=== PATIENT | male | born 1945 | race Caucasian/White ===

== ENCOUNTER 2016-11-04 14:20 | Inpatient (IN) | payer MEDICARE, OTHER ==
[~2016-11-04] VITALS: Ht 166.4 cm; Wt 82.0 kg
[~2016-11-04 14:20] MED LIST: ADVA250A INH; ASPI1TAB69 PO; CHOL1TAB42 PO; LIPI40TA PO; OXYGENTANK NAS.CANULA; TAMS5CAP PO; TELM1TAB56 PO; TIOT12.9 INH; VITA500T49 PO; ZYRT10CA PO
[2016-11-05] MEDS ORDERED: METOPROLOL TARTRATE 25 MG TAB PO PRN (05:45)
[2016-11-05] MEDS ORDERED: INSULIN HUMAN REGULAR 1,000 UNITS/10 ML VIAL SQ PRN (05:45)
[2016-11-05] MEDS: LACTATED RINGER'S 1000 ML IV SCH (06:15)
[2016-11-05 06:20] VITALS: BP 165/75; PULSE 94; RESP 18; TEMP 97.1; O2SAT 99
[2016-11-05] MEDS ORDERED: ceFAZolin 2 GM PREMIX 50 ML IV SCH (06:30)
[2016-11-05 06:48] LABS: INTERNATIONAL NORMALIZED RATIO 1.1 RATIO
[2016-11-05] MEDS ORDERED: SODIUM BICARBONATE 8.4% INJ 50 ML ONE (06:48)
[2016-11-05] MEDS ORDERED: GELFOAM SIZE 100 ONE (06:48)
[2016-11-05] MEDS ORDERED: LIDOCAINE 1%/EPINEPHrine 1:100,000 SOLN 30 ML VIAL ONE (06:48)
[2016-11-05] MEDS ORDERED: BACITRACIN TOP OINT 15 GM TUBE ONE (06:48)
[2016-11-05 06:50] LABS: PROTHROMBIN TIME - PATIENT 11.9 SEC (9.8-11.6)
[2016-11-05] MEDS ORDERED: BUPIVACAINE/EPINEPHRINE 0.5% PF 30 ML VIAL ONE (06:56)
[2016-11-05] MEDS ORDERED: RESP: ALBUTEROL 2.5 MG/IPRATROPIUM 0.5 MG NEB (SCH) ONE (07:11)
[2016-11-05] MEDS ORDERED: MIDAZOLAM HCL 2 MG/2 ML VIAL ONE (07:23)
[2016-11-05] MEDS ORDERED: fentaNYL CITRATE 1000 MCG/20 ML VIAL ONE (07:27)
[2016-11-05] MEDS ORDERED: SODIUM CHLORID 0.9% 500 ML IV SCH (07:30)
[2016-11-05] MEDS ORDERED: ceFAZolin INJ 1,000 MG VIAL IV ONE (11:00)
[2016-11-05] MEDS ORDERED: SODIUM CHLORID 0.9% 500 ML INJ 500 ML IV ONE (12:00)
[2016-11-05] MEDS ORDERED: PROPOFOL 200 MG/20 ML AMP IV ONE (12:00)
[2016-11-05] MEDS ORDERED: LACTATED RINGER'S 1000 ML INJ 5,000 ML IV ONE (12:00)
[2016-11-05] MEDS ORDERED: PHENYLEPH/NS 1000 MCG/10 ML SYR IV ONE (12:00)
[2016-11-05] MEDS ORDERED: ePHEDrine/NS 25 MG/5 ML SYR IV ONE (12:00)
[2016-11-05] MEDS ORDERED: DO NOT ADM ANY ANTICOAGULANT DRUGS XX PRN (12:59)
[2016-11-05] MEDS ORDERED: fentaNYL CITRATE 250 MCG/5 ML AMP ONE (13:05)
[2016-11-05] MEDS ORDERED: *morphine SULFATE 8 MG/ML PERIprocedure ONLY ONE ×3 (13:15→13:53)
[2016-11-05] MEDS ORDERED: NALOXONE HCL 0.4 MG/ML AMP IV PRN (13:45)
[2016-11-05] MEDS: MORPHINE SULFATE 30 MG/30 ML PCA IV SCH (13:58)
[2016-11-05] MEDS: PANTOPRAZOLE SODIUM 40 MG VIAL IV PUSH SCH (14:00)
[2016-11-05] MEDS: SODIUM CHLOR 0.9% 1000 ML INJ 1,000 ML IV SCH (14:00)
[2016-11-05] MEDS: BUDESONIDE-FORMOTEROL 160/4.5 MCG INHALER INH SCH (14:00)
[2016-11-05 14:06] LABS: AUTOMATED NEUTROPHIL # 11.9 TH/MM3 (1.8-7.7); BASOPHIL % 0.1 % (0.0-2.0); EOSINOPHIL % 0.1 % (0.0-4.0); HEMATOCRIT 29.1 % (39.0-51.0); HEMO FLAGS DIFF FINAL; LYMPH % 7.5 % (9.0-44.0); MEAN CELL VOLUME 91.4 FL (80.0-100.0); MEAN CORPUSCULAR HEMOGLOBIN 31.9 PG (27.0-34.0); MEAN CORPUSCULAR HGB CONC 34.9 % (32.0-36.0); MONO % 7.2 % (0.0-8.0); NEUT % 85.1 % (16.0-70.0); PLATELET COUNT 209 TH/MM3 (150-450); RED BLOOD COUNT 3.18 MIL/MM3 (4.50-5.90); RED CELL DISTRIBUTION WIDTH 14.1 % (11.6-17.2); WHITE BLOOD COUNT 13.9 TH/MM3 (4.0-11.0)
[2016-11-05 14:19] LABS: POTASSIUM 4.2 MEQ/L (3.5-5.1)
[2016-11-05] MEDS: ACETAMINOPHEN 1000 MG/100 ML VIAL IV SCH (15:00)
[2016-11-05] MEDS: GENTAMICIN INJ 120 MG in SODIUM CHLORIDE 0.9% INJ 100 ML IV SCH (15:00)
--- NOTE | 2016-11-05 15:44 | EKG ---
Date Performed: 11/05/2016 Time Performed: 06:16:35 PTAGE: 70 years EKG: Sinus rhythm WITH FREQUENT SUPRAVENTRICULAR PREMATURE COMPLEXES IN A BIGEMINAL PATTERN POSSIBLE INFERIOR MYOCARDI AL INFARCTION , PROBABLY OLD ABNORMAL RHYTHM ECG NO PREVIOUS TRACING DOCTOR: Navid Del Cid Interpretating Date/Time 11/05/2016 15:41:00
[2016-11-05] MEDS ORDERED: ERYTHROMYCIN 0.5% OPTH OINT 1 GM TUBO ONE (17:46)
[2016-11-05] MEDS ORDERED: TETRACAINE 0.5% OPTH SOLN 2 ML BTL LEFT EYE ONE (18:00)
[2016-11-05] MEDS ORDERED: BALANCED SALT SOLN OPHT IRRIG 15 ML BTL LEFT EYE ONE (18:00)
[2016-11-05] MEDS ORDERED: TETRACAINE 0.5% LEFT EYE ONE (18:00)
[2016-11-05] MEDS ORDERED: OPTH LEFT EYE ONE (18:00)
[2016-11-05] MEDS ORDERED: ERYTHROMYCIN 0.5% OPTH OINT 3.5 GM TUBO LEFT EYE ONE (18:00)
[2016-11-05 20:00] VITALS: PULSE 95
[2016-11-05 20:50] VITALS: O2SAT 100
[2016-11-05] MEDS: ATORVASTATIN 40 MG TAB PO SCH (21:00)
[2016-11-05] MEDS: PCA - TOTAL MG MORPHINE DELIVERED PER SHIFT SCH (22:00)
[2016-11-06] VITALS (12 sets, daily range): BP systolic 104–147; BP diastolic 51–90; PULSE 73–91; RESP 17–22; TEMP 97.9–98.5; O2SAT 97–100
[2016-11-06] MEDS: SODIUM CHLOR 0.9% 1000 ML INJ 1,000 ML IV SCH ×4 (03:00→21:10)
[2016-11-06] MEDS: ACETAMINOPHEN 1000 MG/100 ML VIAL IV SCH ×4 (03:29→20:21)
[2016-11-06] MEDS: PCA - TOTAL MG MORPHINE DELIVERED PER SHIFT SCH ×3 (06:00→22:40)
[2016-11-06 06:44] LABS: HEMATOCRIT 26.4 % (39.0-51.0); MEAN CELL VOLUME 92.3 FL (80.0-100.0); MEAN CORPUSCULAR HEMOGLOBIN 33.1 PG (27.0-34.0); MEAN CORPUSCULAR HGB CONC 35.8 % (32.0-36.0); PLATELET COUNT 154 TH/MM3 (150-450); RED BLOOD COUNT 2.86 MIL/MM3 (4.50-5.90); RED CELL DISTRIBUTION WIDTH 14.1 % (11.6-17.2); REVIEW FLAG FINAL
[2016-11-06 06:55] LABS: BICARBONATE 23.9 MEQ/L (21.0-32.0); POTASSIUM 4.4 MEQ/L (3.5-5.1)
[2016-11-06 07:11] LABS: CALCIUM-PROTEIN CORRECTED 8.3 MG/DL (8.5-10.1)
[2016-11-06] MEDS: LACTATED RINGER'S 1000 ML IV SCH (07:30)
[2016-11-06] MEDS: LOSARTAN 50 MG TAB PO SCH (08:33)
[2016-11-06] MEDS: CETIRIZINE HCL 10 MG TAB PO SCH (08:33)
[2016-11-06] MEDS: BUDESONIDE-FORMOTEROL 160/4.5 MCG INHALER INH SCH ×2 (09:00→20:21)
[2016-11-06] MEDS ORDERED: ASPIRIN EC 81 MG TABEC PO SCH (09:00)
[2016-11-06] MEDS: PANTOPRAZOLE SODIUM 40 MG VIAL IV PUSH SCH (11:33)
--- NOTE | 2016-11-06 11:51 | HHI.PR ---
Subjective Subjective Notes Hungry Pain controlled using TRUCK HOPPER Objective Vitals/I&O Vital Signs Date Time Temp Pulse Resp B/P Pulse Ox O2 Delivery O2 Flow Rate FiO2 11/06/16 08:31 100 Nasal Cannula 2.00 11/06/16 08:00 98.3 84 20 147/65 Labs Laboratory Tests Test 11/05/16 11/05/16 11/06/16 13:51 20:15 06:00 White Blood Count 13.9 10.0 Red Blood Count 3.18 2.86 Hemoglobin 10.2 9.4 Hematocrit 29.1 26.4 Mean Corpuscular Volume 91.4 92.3 Mean Corpuscular Hemoglobin 31.9 33.1 Mean Corpuscular Hemoglobin 34.9 35.8 Concent Red Cell Distribution Width 14.1 14.1 Platelet Count 209 154 Mean Platelet Volume 7.8 7.8 Neutrophils (%) (Auto) 85.1 Lymphocytes (%) (Auto) 7.5 Monocytes (%) (Auto) 7.2 Eosinophils (%) (Auto) 0.1 Basophils (%) (Auto) 0.1 Neutrophils # (Auto) 11.9 Lymphocytes # (Auto) 1.0 Monocytes # (Auto) 1.0 Eosinophils # (Auto) 0.0 Basophils # (Auto) 0.0 CBC Comment DIFF FINAL Differential Comment Sodium Level 132 134 Potassium Level 4.2 4.4 Chloride Level 101 103 Carbon Dioxide Level 25.0 23.9 Anion Gap 6 7 Blood Urea Nitrogen 5 9 Creatinine 0.81 0.95 Estimat Glomerular Filtration 94 78 Rate Random Glucose 195 138 Calcium Level 7.6 7.1 Nasal Screen MRSA (PCR) POSITIVE Protein Corrected Calcium 8.3 Total Protein 4.9 Cardiovascular: Regular Lungs: Clear Abdomen: Other (see below ) Extremities: Other (moderate generalized edema ) Narrative Exam Umbilical: dressing in place with no drainage Midline incision (from Urology) procedure: primapore dressing in place with minimal drainage A/P Assessment and Plan 70 year old male POD1 radical cystectomy and ileo conduit (by Urology); POD1 UHR (by General Surgery) -Keep dressing in place -All further care per Urology; GS will sign off -Follow up in the office in about 7-10 days after DC Annika Reyes Nov 06, 2016 11:51
--- NOTE | 2016-11-06 12:37 | HHI.PR ---
Subjective Remarks no acute issues overnight. pain controlled with morphine HOT DIE PICKER. Up in chair. Denies N/V/CP/SOB/F/C. Denies flatus. Denies dizziness/lightheadedness Objective Vital Signs Vital Signs Date Time Temp Pulse Resp B/P Pulse Ox O2 Delivery O2 Flow Rate FiO2 11/06/16 08:31 100 Nasal Cannula 2.00 11/06/16 08:00 98.3 84 20 147/65 100 11/06/16 08:00 84 11/06/16 07:00 99 Nasal Cannula 3.00 11/06/16 06:00 80 11/06/16 06:00 16 11/06/16 04:00 82 11/06/16 00:00 91 11/05/16 22:00 18 11/05/16 20:50 100 Nasal Cannula 3.00 11/05/16 20:00 95 11/05/16 20:00 100 Nasal Cannula 3.00 11/05/16 19:52 97.8 92 18 115/66 99 Nasal Cannula 3 11/05/16 19:00 92 18 115/66 99 Nasal Cannula 3 11/05/16 18:00 93 18 111/72 99 Nasal Cannula 3 11/05/16 17:00 94 18 114/67 97 Nasal Cannula 3 11/05/16 16:45 92 18 138/68 97 Nasal Cannula 3 11/05/16 16:30 91 18 132/74 99 Nasal Cannula 3 11/05/16 16:15 91 18 148/67 99 Nasal Cannula 3 11/05/16 16:00 92 18 148/65 99 Nasal Cannula 3 11/05/16 15:45 90 18 123/66 99 Nasal Cannula 3 11/05/16 15:30 89 18 137/74 99 Nasal Cannula 3 11/05/16 15:15 89 18 110/69 98 Nasal Cannula 3 11/05/16 15:00 89 18 138/47 99 Nasal Cannula 3 11/05/16 14:45 86 18 129/71 99 Nasal Cannula 3 11/05/16 14:30 84 18 140/71 99 Nasal Cannula 3 11/05/16 14:15 82 18 137/63 99 Nasal Cannula 3 11/05/16 14:00 78 18 141/52 99 Nasal Cannula 3 11/05/16 13:58 20 11/05/16 13:45 84 18 135/65 98 Nasal Cannula 3 11/05/16 13:30 72 18 113/52 98 Nasal Cannula 3 11/05/16 13:15 76 18 127/64 98 Nasal Cannula 3 11/05/16 13:00 81 18 107/43 98 Nasal Cannula 3 11/05/16 12:55 97.1 83 18 109/35 94 Nasal Cannula 3 I/O 11/05/16 11/05/16 11/05/16 11/06/16 11/06/16 11/06/16 07:00 15:00 23:00 07:00 15:00 23:00 Intake Total 5870 ml 969 ml 952 ml Output Total 1035 ml 230 ml 550 ml Balance 4835 ml 739 ml 402 ml Intake IV Total 670 ml 969 ml 952 ml Other 5200 ml Output Urine Total 410 ml 180 ml Drainage Total 125 ml 50 ml 550 ml Estimated Blood Loss 500 ml Result Diagram: 11/06/16 0600 11/06/16 0600 Objective Remarks NAD. A/O x 3 non-labored breathing RRR abd soft, distended, appropriate, no peritoneal signs. Dressings dry stoma edematous, pink with some bruising. Appears viable. Pelvic drain with sanguinous drainage. Foreskin edematous, paraphimosis Ext NT no c/c/e Procedures Radical Cystoprostatectomy, Pelvic LN dissection, Ileal Conduit 11/05/2016 Assessment and Plan Assessment and Plan POD #1 s/p Radical Cystoprostatectomy, Ileal Conduit -Neuro: Awake, alert. On Morphine HOT DIE PICKER. -Pul: On 02 NC, continue IS. Home inhalers as scheduled. -CV: Hemodynamically stable. Follow Hemoglobin. Repeat in A.M. -Renal: Good UOP. Creatinine normal. Replace Calcium. Repeat BMP in A.M. Continue IVF. -GI: Keep NPO until bowel function returns. Continue Protonix, Zofran. -ID: WBC normal. afebrile. Continue Ancef, Gent -Heme/Onc: SCDs bilaterally. Hold chemical anticoagulation for now as hemoglobin has dropped. -Uro: path pending. -Disposition: PT/OT, Consult Stoma therapy. Remain in ICU. -appreciate General Surgery. Duncan Huff MD Nov 06, 2016 12:36
[2016-11-06] MEDS: MORPHINE SULFATE 30 MG/30 ML PCA IV SCH (13:00)
[2016-11-06] MEDS: GENTAMICIN INJ 120 MG in SODIUM CHLORIDE 0.9% INJ 100 ML IV SCH (14:41)
[2016-11-06] MEDS: ATORVASTATIN 40 MG TAB PO SCH (20:21)
[2016-11-07] VITALS (12 sets, daily range): BP systolic 115–144; BP diastolic 50–61; PULSE 73–92; RESP 20–31; TEMP 97–98.9; O2SAT 95–100
[2016-11-07] MEDS: ACETAMINOPHEN 1000 MG/100 ML VIAL IV SCH ×4 (01:26→21:24)
[2016-11-07 04:34] LABS: AUTOMATED NEUTROPHIL # 9.5 TH/MM3 (1.8-7.7); BASOPHIL % 0.2 % (0.0-2.0); EOSINOPHIL % 0.3 % (0.0-4.0); HEMATOCRIT 26.2 % (39.0-51.0); HEMO FLAGS DIFF FINAL; LYMPH % 9.6 % (9.0-44.0); LYMPHOCYTE # 1.1 TH/MM3 (1.0-4.8); MEAN CELL VOLUME 94.9 FL (80.0-100.0); MEAN CORPUSCULAR HEMOGLOBIN 32.7 PG (27.0-34.0); MEAN CORPUSCULAR HGB CONC 34.4 % (32.0-36.0); MONO % 8.2 % (0.0-8.0); NEUT % 81.7 % (16.0-70.0); PLATELET COUNT 163 TH/MM3 (150-450); RED BLOOD COUNT 2.76 MIL/MM3 (4.50-5.90); RED CELL DISTRIBUTION WIDTH 14.5 % (11.6-17.2); WHITE BLOOD COUNT 11.6 TH/MM3 (4.0-11.0)
[2016-11-07 04:59] LABS: BICARBONATE 24.7 MEQ/L (21.0-32.0); POTASSIUM 4.9 MEQ/L (3.5-5.1)
[2016-11-07] MEDS: PCA - TOTAL MG MORPHINE DELIVERED PER SHIFT SCH (05:41)
[2016-11-07] MEDS: SODIUM CHLOR 0.9% 1000 ML INJ 1,000 ML IV SCH ×3 (05:42→21:25)
[2016-11-07] MEDS: CETIRIZINE HCL 10 MG TAB PO SCH (08:41)
[2016-11-07] MEDS: LOSARTAN 50 MG TAB PO SCH (08:41)
[2016-11-07] MEDS: BUDESONIDE-FORMOTEROL 160/4.5 MCG INHALER INH SCH ×2 (09:00→21:00)
[2016-11-07] MEDS: PANTOPRAZOLE SODIUM 40 MG VIAL IV PUSH SCH (13:09)
[2016-11-07] MEDS: MORPHINE SULFATE 4 MG/ML INJ IV PUSH PRN ×2 (18:12→21:25)
[2016-11-07] MEDS: ONDANSETRON HCL 4 MG/2 ML VIAL IV PUSH PRN (18:17)
[2016-11-07] MEDS: ATORVASTATIN 40 MG TAB PO SCH (21:25)
[2016-11-08] VITALS: BP 148/59; PULSE 96; RESP 18; TEMP 97.6; O2SAT 96
[2016-11-08] MEDS: ACETAMINOPHEN 1000 MG/100 ML VIAL IV SCH ×4 (01:08→20:08)
[2016-11-08] MEDS: MORPHINE SULFATE 4 MG/ML INJ IV PUSH PRN ×2 (01:09→06:28)
[2016-11-08] MEDS: ONDANSETRON HCL 4 MG/2 ML VIAL IV PUSH PRN ×2 (01:16→21:56)
[2016-11-08 05:20] LABS: HEMATOCRIT 24.2 % (39.0-51.0); MEAN CELL VOLUME 94.4 FL (80.0-100.0); MEAN CORPUSCULAR HEMOGLOBIN 33.1 PG (27.0-34.0); PLATELET COUNT 156 TH/MM3 (150-450); RED BLOOD COUNT 2.57 MIL/MM3 (4.50-5.90); RED CELL DISTRIBUTION WIDTH 14.7 % (11.6-17.2); REVIEW FLAG FINAL; WHITE BLOOD COUNT 8.1 TH/MM3 (4.0-11.0)
--- NOTE | 2016-11-08 05:33 | MP ---
cc: PAULO MOJICA M.D. DATE OF SURGERY: 11/05/2016 PREOPERATIVE DIAGNOSIS: Symptomatic large supraumbilical hernia. Bladder cancer requiring radical cystectomy. POSTOPERATIVE DIAGNOSIS: Symptomatic large supraumbilical hernia. Bladder cancer requiring radical cystectomy. OPERATION: Primary umbilical repair. SURGEON: Paulo Mojica MD. COMPOSITE LAYUP WORKER: ANNA Stanley. ANESTHESIA: General endotracheal anesthesia. INDICATIONS FOR PROCEDURE: Mr. Edwards is a very pleasant 70 year old gentleman who is undergoing a radical cystectomy by Dr. Huff and Dr. Serna and was also noted to have a very large supraumbilical hernia. He asked if the hernia could be fixed at the same time as the radical cystectomy. I advised we could perform primary hernia repair would I would not recommend placing a prosthetic mesh with Dr. Huff manipulating both the GI and tracts. The patient expressed understanding was willing to proceed and accepted the high recurrence rate with primary repair. I Dr. Huff has just completed a radical cystectomy via the lower midline and left periumbilical incision. The wound has been closed. I assumed the care of the patient from him in the operating room. Details the patient was already in the operating room, having just completed as radical cystectomy with Dr. Huff and Dr. eSrna. Their surgical wound had been closed. Attention was directed to the supraumbilical area. A transverse supraumbilical incision was made just above the hernia after anesthetizing skin and subcutaneous tissue with 0.25% Marcaine. Hernia sac was easily dissected from surrounding skin using a blunt dissection. Hernia sac was then opened and found to contain a large amount of omentum which had been transected intra-abdominally by Dr. Daphne Huff during their dissection. We removed the omentum and send it for pathology. The hernia sac was then excised. Fascial defect measured about 2-3 cm in diameter. We elected perform primary repair. Again because of the manipulation of the GI and tracts by Dr. Huff and Dr. Serna. The umbilical fascia was cleaned off circumferentially identifying several centimeters identifying approximately 2 cm's of healthy fascia. This was then repaired primarily using 0 Prolene suture interrupted x4. Once this repair was completed. The umbilical stalk was then tacked down to the abdominal wall using a 3-0 Vicryl. Subcutaneous tissues closed with 3-0 Vicryl. Skin was closed with 4-0 Vicryl. The patient in awakened, brought to recovery in stable condition. Please note the KNOCKDOWN MAN butcher's assistant was medically necessary due to her surgical skills and knowledge of my surgical technique. Paulo MD SANDRO Mojica/moise /12:46 PM /5:23 AM MTDRima
[2016-11-08 05:46] LABS: BICARBONATE 22.9 MEQ/L (21.0-32.0); POTASSIUM 4.4 MEQ/L (3.5-5.1)
[2016-11-08] MEDS: SODIUM CHLOR 0.9% 1000 ML INJ 1,000 ML IV SCH ×3 (06:29→20:12)
[2016-11-08] MEDS: LACTATED RINGER'S 1000 ML IV SCH (07:30)
[2016-11-08 08:00] VITALS: BP 113/58; PULSE 85; RESP 16; TEMP 97; O2SAT 97
[2016-11-08] MEDS: SPIRIVA RESPIMAT INH SCH (09:00)
[2016-11-08] MEDS: BUDESONIDE-FORMOTEROL 160/4.5 MCG INHALER INH SCH ×2 (09:00→20:07)
[2016-11-08] MEDS: CETIRIZINE HCL 10 MG TAB PO SCH (11:47)
[2016-11-08] MEDS: LOSARTAN 50 MG TAB PO SCH (11:47)
[2016-11-08 12:00] VITALS: BP 121/58; PULSE 88; RESP 17; TEMP 96.1; O2SAT 98
[2016-11-08] MEDS: PANTOPRAZOLE SODIUM 40 MG VIAL IV PUSH SCH (15:08)
[2016-11-08 16:00] VITALS: BP 122/58; PULSE 84; RESP 18; TEMP 96.2; O2SAT 98
[2016-11-08] MEDS: ATORVASTATIN 40 MG TAB PO SCH (20:07)
[2016-11-08 20:17] VITALS: BP 144/64; PULSE 78; RESP 18; TEMP 98.5; O2SAT 98
--- NOTE | 2016-11-08 20:28 | MP ---
cc: CARLITOS PRATHER M.D.,ZORAIDA Polanco MD DATE OF SURGERY: 11/08/2016 PREOPERATIVE DIAGNOSIS: 1. History of high-grade T1 bladder cancer, plasmacytoid variant. 2. COPD. 3. Umbilical hernia. POSTOPERATIVE DIAGNOSIS: 1. History of high-grade T1 bladder cancer, plasmacytoid variant. 2. COPD. 3. Umbilical hernia. OPERATIVE PROCEDURE PERFORMED: 1. Radical cystoprostatectomy with ileal conduit. 2. Bilateral pelvic lymph node dissection. SURGEON: Zoraida Huff MD. GREEN MEAT GRADER: Curry Serna MD. ANESTHESIA: General. COMPLICATIONS: None. PREOPERATIVE ANTIBIOTICS: Ancef 2 grams IV. DRAINS: 1. Bilateral 7-Hungarian x 90 cm ureteral stents. 2. A 22-Hungarian catheter as pelvic drain. ESTIMATED BLOOD LOSS: 500 mL. FLUIDS: 5100 mL. SPECIMENS: 1. Bladder and prostate. 2. Right distal ureter. 3. Left distal ureter. DISPOSITION: Stable to the intensive care unit. INDICATIONS FOR THE PROCEDURE: The patient is a 70-year-old male with history of COPD who was found to have recurrent high-grade T1 bladder cancer. On most recent resection, he was found to have a plasmacytoid variant, which is a very aggressive variant. He was referred to medical oncology who recommended to proceed straight to a radical cystectomy. He had a PET scan done, which was negative for metastatic disease. He was also found to have an umbilical hernia. He was seen by Dr. Melgar and in combination with Dr. Melgar we decided that he would have a hernia repair at the same time as having his bladder removed. The risks, benefits and alternatives of the procedure were explained to the patient and his and they elected proceed. All questions were answered. Informed consent was obtained. DESCRIPTION OF THE PROCEDURE IN DETAIL: The patient was properly identified and brought back to the operating room where he was laid supine on the operating table. The appropriate time out was performed under the direction of anesthesiology. The patient was then induced under general anesthetic. Preop antibiotics in the form of Ancef 2 grams IV were given within a one hour start of the procedure. The patient was then flexed and prepped and draped in normal sterile surgical fashion. A low midline incision was made from the pubic bone to the left lateral side of the umbilicus. Electrocautery was then used to dissect down through the subcutaneous tissues to the level of the rectus fascia. The midline was identified and then divided at the rectus muscle along the midline. The peritoneum was then entered sharply with Metzenbaum scissors. It was then divided with electrocautery. This opened up the abdominal cavity. The urachus was then divided. A tonsil was placed across the urachus and used for retraction. At this time, a Bookwalter retractor was then placed to help with retraction. Using electrocautery we were able to dissect the sigmoid colon and bowel off of the posterior portion of the bladder. The colon was then retracted cephalad. At this point, the ureters were difficult to find at this time. Therefore we turned our attention to the bladder and prostate. Using blunt dissection, I took down the lateral wall attachments of the bladder on each side. This developed a nice plane. The vas deferens was finally sighted and this was divided. Using an endovascular GI stapler, we then marched down the pedicles on each side staying close to the bladder with the rectum posterior and off the bladder. We were able to march all the way down to the level of the prostate. We were able to march all the way down to the level of the prostate. The endopelvics were then divided on each side and then we came up anterior to the prostate. The plane between the urethra and the rectourethralis was developed bluntly. The endovascular ROBERTH stapler was then used to divide the UVC and the urethra. The prostate and bladder were then removed in its entirety. The iliac vessels on each side were identified. Pelvic lymph node dissection was done removing the obturator and pelvic lymph nodes on each side. The obturator nerve was identified throughout this portion of the procedure and it did appear intact on each side and a significant amount of annie tissue was removed. Both ureters were identified and dissected out. The distal portions were then clipped and divided. Each distal portion of the ureter was then sent off for frozen which came back negative for malignancy. A mesenteric window was made and the left ureter was brought through the mesenteric onto the right side in preparation for the ileal conduit. Through his umbilical hernia, a significant amount of mesentery was stuck up into the hernia. In order to bring the small bowel began retraction and length on the small bowel, the omentum was divided. The ileocecal valve was identified approximately 10 cm proximal to the ileocecal valve. We made our butt end of the ileal conduit. Another 15 cm was our proximal end. The conduit was made with the TIA stapler. Bowel anastomosis was performed with the antimesenteric side on each side of the bowel. It appeared to be widely patent. The conduit was then positioned inferior to the bowel anastomosis. The mesenteric window was closed with a running 3-0 Vicryl to prevent a sliding hernia. At this time, water-tight end-to-side ureteral anastomosis was then done with the left and right ureter after spatulating each left and right ureter. A 3-0 Vicryl suture was used as a stay stitch for each ureter to the butt end of the conduit. Prior to finishing the anastomosis, bilateral 7-Hungarian x 90 cm ureteral stents were then passed up each ureter. The ileal conduit was then matured in the right lower quadrant using 2-0 Vicryls which came out as a nice [place]. The conduit did appear edematous and discolored but viable. Urine was seen coming out of both stents. The ileal conduit was then secured to the skin with interrupted 2-0 Vicryl. The conduit was brought through the rectus muscle with a two fingerbreadth wide fascial opening. At this time, a 22-Hungarian three-way catheter was then placed through his penis and put on retraction for a pelvic drain. Two grams of Evi was then placed in the pelvis. Hemostasis was excellent. The incision was then closed with a running looped PDS followed by noah. This concluded my portion of procedure. Dr. Melgar then came in at the end to perform the umbilical hernia repair. Please see his operative report. The sponge, needle count was correct at the end of my portion of the case. He was extubated following the completion of Dr. Melgar's hernia repair. He was sent to recovery in stable condition without immediate complications. He will be transferred to the intensive care unit for overnight observation. MD MARLENY Oropeza/PABLO /11:14 AM /7:43 PM
[2016-11-09 00:21] VITALS: BP 140/88; PULSE 76; RESP 18; TEMP 97.9; O2SAT 97
[2016-11-09] MEDS: ACETAMINOPHEN 1000 MG/100 ML VIAL IV SCH ×4 (02:04→19:54)
[2016-11-09] MEDS: LACTATED RINGER'S 1000 ML IV SCH ×2 (02:05→19:54)
[2016-11-09] MEDS: SODIUM CHLOR 0.9% 1000 ML INJ 1,000 ML IV SCH ×3 (02:05→19:54)
[2016-11-09] MEDS: CALCIUM CARBONATE 500 MG CHEWABLE TAB CHEW PRN (02:37)
[2016-11-09] MEDS: ONDANSETRON HCL 4 MG/2 ML VIAL IV PUSH PRN (03:03)
[2016-11-09] MEDS ORDERED: PROMETHAZINE INJ 25 MG/ML VIAL IM PRN (03:45)
[2016-11-09 07:20] LABS: HEMATOCRIT 25.1 % (39.0-51.0); MEAN CELL VOLUME 94.6 FL (80.0-100.0); MEAN CORPUSCULAR HEMOGLOBIN 32.5 PG (27.0-34.0); MEAN CORPUSCULAR HGB CONC 34.3 % (32.0-36.0); PLATELET COUNT 206 TH/MM3 (150-450); RED BLOOD COUNT 2.66 MIL/MM3 (4.50-5.90); RED CELL DISTRIBUTION WIDTH 14.4 % (11.6-17.2); REVIEW FLAG FINAL; WHITE BLOOD COUNT 4.7 TH/MM3 (4.0-11.0)
[2016-11-09 07:31] LABS: POTASSIUM 4.5 MEQ/L (3.5-5.1)
[2016-11-09 08:00] VITALS: BP 145/66; PULSE 90; RESP 18; TEMP 97; O2SAT 98
[2016-11-09] MEDS: BUDESONIDE-FORMOTEROL 160/4.5 MCG INHALER INH SCH ×2 (09:00→19:55)
[2016-11-09] MEDS: SPIRIVA RESPIMAT INH SCH (09:00)
[2016-11-09] MEDS: LOSARTAN 50 MG TAB PO SCH (09:22)
[2016-11-09] MEDS: CETIRIZINE HCL 10 MG TAB PO SCH (09:22)
[2016-11-09 12:00] VITALS: BP 162/71; PULSE 93; RESP 19; TEMP 98.1; O2SAT 8
[2016-11-09] MEDS: PANTOPRAZOLE SODIUM 40 MG VIAL IV PUSH SCH (12:29)
--- NOTE | 2016-11-09 13:54 | HHI.PR ---
Subjective Remarks N/V x 1 overnight after taking oral medication. Had NG tube inserted. Feels better. Abdominal pain improved. Denies CP/SOB/F/C. OOB yesterday. Objective Vital Signs Vital Signs Date Time Temp Pulse Resp B/P Pulse Ox O2 Delivery O2 Flow Rate FiO2 11/09/16 12:00 98.1 93 19 162/71 8 11/09/16 08:15 3.00 11/09/16 08:00 97.0 90 18 145/66 98 11/09/16 00:21 97.9 76 18 140/88 97 11/08/16 21:45 Nasal Cannula 3.00 11/08/16 20:17 98.5 78 18 144/64 98 11/08/16 16:00 96.2 84 18 122/58 98 I/O 11/08/16 11/08/16 11/08/16 11/09/16 11/09/16 11/09/16 07:00 15:00 23:00 07:00 15:00 23:00 Intake Total 0 ml 0 ml 795 ml 1036 ml Output Total 250 ml 1630 ml 1000 ml Balance -250 ml 0 ml -835 ml 36 ml Intake Oral 0 ml 0 ml IV Total 795 ml 1036 ml Output Urine Total 250 ml 580 ml 500 ml Gastric Drainage Total 500 ml Drainage Total 1050 ml # Bowel Movements 0 Result Diagram: 11/09/1616 11/09/16 0616 Objective Remarks NAD. A/O x 3 non-labored breathing RRR abd soft, less distended, less tender, no peritoneal signs. Dressings dry. NGT with scant drainage. stoma edematous, but more pink with less bruising, viable. Scrotum less edematous, soft Ext NT. No c/c/e Procedures Radical Cystoprostatectomy, Pelvic LN dissection, Ileal Conduit 11/05/2016 Assessment and Plan Assessment and Plan Radical Cystoprostatectomy, Ileal Conduit -d/c NGT. -Keep NPO until bowel function returns. Hold oral meds. -Hgb stable. Get Creatinine Serum. -Good UOP, renal function. -GI/DVT prophylaxis -Ambulate Duncan Huff MD Nov 09, 2016 13:54
[2016-11-09 16:00] VITALS: BP 141/65; PULSE 90; RESP 22; TEMP 97.1; O2SAT 98
[2016-11-09] MEDS: MORPHINE SULFATE 4 MG/ML INJ IV PUSH PRN (17:36)
[2016-11-09 20:06] VITALS: BP 171/74; PULSE 87; RESP 20; TEMP 97.9; O2SAT 98
[2016-11-09 23:54] VITALS: BP 145/66; PULSE 89; RESP 17; TEMP 98.1; O2SAT 96
[2016-11-10] MEDS: ACETAMINOPHEN 1000 MG/100 ML VIAL IV SCH ×4 (00:45→21:35)
[2016-11-10] MEDS: SODIUM CHLOR 0.9% 1000 ML INJ 1,000 ML IV SCH ×3 (00:46→21:35)
[2016-11-10 08:00] VITALS: BP 161/70; PULSE 86; RESP 17; TEMP 95.6; O2SAT 94
[2016-11-10] MEDS: ONDANSETRON HCL 4 MG/2 ML VIAL IV PUSH PRN (08:20)
[2016-11-10] MEDS: SPIRIVA RESPIMAT INH SCH (08:21)
[2016-11-10] MEDS: CALCIUM CARBONATE 500 MG CHEWABLE TAB CHEW PRN (08:21)
[2016-11-10] MEDS: MORPHINE SULFATE 4 MG/ML INJ IV PUSH PRN ×2 (08:21→11:13)
[2016-11-10] MEDS: BUDESONIDE-FORMOTEROL 160/4.5 MCG INHALER INH SCH ×2 (08:26→21:00)
--- NOTE | 2016-11-10 08:28 | HHI.PR ---
Subjective Remarks feels nauseated. Passed small amount of flatus. Denies CP/SOB. Objective Vital Signs Vital Signs Date Time Temp Pulse Resp B/P Pulse Ox O2 Delivery O2 Flow Rate FiO2 11/10/16 08:00 95.6 86 17 161/70 94 11/09/16 23:54 98.1 89 17 145/66 96 11/09/16 21:14 Nasal Cannula 2.00 11/09/16 21:13 Nasal Cannula 3.00 11/09/16 20:06 97.9 87 20 171/74 98 11/09/16 16:00 97.1 90 22 141/65 98 11/09/16 12:00 98.1 93 19 162/71 8 I/O 11/09/16 11/09/16 11/09/16 11/10/16 11/10/16 11/10/16 07:00 15:00 23:00 07:00 15:00 23:00 Intake Total 1036 ml 240 ml 1624 ml 1077 ml Output Total 1000 ml 825 ml 850 ml 700 ml Balance 36 ml -585 ml 774 ml 377 ml Intake Oral 240 ml IV Total 1036 ml 1624 ml 1077 ml Output Urine Total 500 ml 500 ml 700 ml Gastric Drainage Total 500 ml Drainage Total 825 ml 350 ml # Bowel Movements 0 Result Diagram: 11/09/16 0616 11/09/16 0616 Objective Remarks NAD. A/O x 3 non-labored breathing RRR abd soft, more distended, less tender, no peritoneal signs. Dressings dry. stoma edematous, but more pink with less bruising, viable. Scrotum less edematous, soft Ext NT. No c/c/e Procedures Radical Cystoprostatectomy, Pelvic LN dissection, Ileal Conduit 11/05/2016 Assessment and Plan Assessment and Plan s/p Radical Cystoprostatectomy, Ileal Conduit -Add Reglan 5 mg IV q 8. -Keep NPO until bowel function returns. Hold oral meds. Check Magnesium. -Vasotec for BP. -GI/DVT prophylaxis -Ambulate in [facility],Duncan Polanco MD Nov 10, 2016 08:28
[2016-11-10] MEDS ORDERED: BISACODYL 10 MG SUPP RECTAL ONE (08:45)
[2016-11-10] MEDS ORDERED: ENALAPRILAT 1.25 MG/ML VIAL IV PUSH PRN (09:00)
[2016-11-10] MEDS: METOCLOPRAMIDE HCL 10 MG/2 ML VIAL IV PUSH SCH ×3 (09:29→21:38)
[2016-11-10 12:00] VITALS: BP 112/65; PULSE 79; RESP 17; TEMP 97.3; O2SAT 97
[2016-11-10 12:05] VITALS: O2SAT 94
[2016-11-10] MEDS: PANTOPRAZOLE SODIUM 40 MG VIAL IV PUSH SCH (12:34)
[2016-11-10 16:00] VITALS: BP 144/64; PULSE 96; RESP 17; TEMP 94.5; O2SAT 96
[2016-11-10 20:00] VITALS: BP 162/69; PULSE 110; RESP 20; TEMP 97.1; O2SAT 97
[2016-11-10] MEDS: RESP: ALBUTEROL 2.5 MG/IPRATROPIUM 0.5 MG NEB (PRN) NEB (23:33)
[2016-11-10 23:36] VITALS: O2SAT 92
[2016-11-11] VITALS (13 sets, daily range): BP systolic 95–153; BP diastolic 57–66; PULSE 90–167; RESP 17–27; TEMP 95.5–97.7; O2SAT 92–97
[2016-11-11] MEDS: ACETAMINOPHEN 1000 MG/100 ML VIAL IV SCH ×4 (01:22→21:22)
[2016-11-11] MEDS: RESP: ALBUTEROL 2.5 MG/IPRATROPIUM 0.5 MG NEB (PRN) NEB (04:09)
[2016-11-11 05:14] LABS: BICARBONATE 23.7 MEQ/L (21.0-32.0)
[2016-11-11] MEDS: METOCLOPRAMIDE HCL 10 MG/2 ML VIAL IV PUSH SCH ×3 (05:28→21:23)
[2016-11-11] MEDS: SODIUM CHLOR 0.9% 1000 ML INJ 1,000 ML IV SCH ×2 (05:29→13:14)
[2016-11-11 05:36] LABS: POTASSIUM 4.7 MEQ/L (3.5-5.1)
[2016-11-11] MEDS: BUDESONIDE-FORMOTEROL 160/4.5 MCG INHALER INH SCH ×2 (09:00→21:44)
[2016-11-11] MEDS: SPIRIVA RESPIMAT INH SCH (09:00)
--- NOTE | 2016-11-11 11:02 | RADRPT ---
EXAM DATE/TIME: 11/11/2016 10:03 [facility] COMPARISON: No previous studies available for comparison. INDICATIONS : Bilateral leg swelling. MEDICAL HISTORY : Myocardial infarction. Hypercholesterolemia. Chronic obstructive pulmonary disease. Coronary artery d isease. Hypertension. Dyspnea. Arthritis. Bladder cancer. MRSA. Diabetes. SURGICAL HISTORY : Appendectomy. Cataract removal. Cystectomy. Hernia repair. ENCOUNTER: Initial ACUITY: 1 day PAIN SCORE: 0/10 LOCATION: Bilateral legs. TECHNIQUE: Venous ultrasound of the left and right leg was performed from the inguinal ligament to the proximal calf. Real-time, color Doppler and spectral tracing, compression and augmentation techniques were us ed. FINDINGS: RIGHT LEG: There is normal compressibility of the deep venous system from the inguinal region to the proximal ca lf. No echogenic clot is seen in the lumen of the common femoral, femoral, popliteal, and posterior tibial veins. There is a normal response of the venous system to proximal and distal augmentation an d respiration. LEFT LEG: There is normal compressibility of the deep venous system from the inguinal region to the proximal ca lf. No echogenic clot is seen in the lumen of the common femoral, femoral, popliteal, and posterior tibial veins. There is a normal response of the venous system to proximal and distal augmentation an d respiration. CONCLUSION: Negative exam with no evidence of deep venous thrombosis. Orion Aguilera MD on November 11, 2016 at 11:00 Board Certified Radiologist. This report was verified electronically.
--- NOTE | 2016-11-11 12:41 | RADRPT ---
EXAM DATE/TIME: 11/11/2016 11:46 [facility] COMPARISON: No previous studies available for comparison. INDICATIONS: Shortness of breath. MEDICAL HISTORY: Myocardial infarction. Hypertension. Chronic obstructive pulmonary disease. Coronary artery dis ease. SURGICAL HISTORY: None. ENCOUNTER: Initial ACUITY: 1 day PAIN SCORE: 0/10 LOCATION: Bilateral chest FINDINGS: A nasogastric tube has its tip below diaphragm. There is minimal patchiness within the lung bases co nsistent with atelectasis and/or mild infiltrates. No pulmonary edema is noted. The heart is normal . CONCLUSION: Minimal bibasilar patchiness consistent with atelectasis and/or mild infiltrates. Clinical correlati on is recommended. Renzo Bhandari MD on November 11, 2016 at 12:29 Board Certified Radiologist. This report was verified electronically.
[2016-11-11] MEDS ORDERED: FUROSEMIDE 40 MG/4 ML VIAL IV PUSH ONE ×2 (13:00→17:30)
[2016-11-11] MEDS: PANTOPRAZOLE SODIUM 40 MG VIAL IV PUSH SCH (13:14)
--- NOTE | 2016-11-11 15:55 | PD.CONS ---
HPI Service [facility] Hospitalists Consult Requested By Urology. Reason for Consult Medical management, COPD Primary Care Physician Christian Bullard MD Diagnoses: (1) Acute bronchitis with COPD (2) Atrial flutter (3) Bladder cancer (4) HTN (hypertension) History of Present Illness Mr. Edwards is a pleasant 70-year-old male with a history of bladder cancer, COPD, hypertension who underwent radical cystoprostatectomy with ileal conduit and bilateral pelvic lymph node dissection on 11/08/2016. Patient also underwent primary umbilical hernia repair by general surgery. Hospitalist service was consulted for COPD exacerbation as well as general medical management. At the time of this interview patient is doing well but reports difficulty breathing. He denies any chest pain, fever or chills. He reports more than usual difficulty with his breathing. He uses 2-4 L of oxygen at home. Patient reports intolerance to prednisone before but he has used IV steroid without any difficulty. Review of Systems ROS Limitations: Other (Negative except as noted in the HPI. ) Past Family Social History Allergies: Coded Allergies: Ibuprofen (Verified Allergy, Severe, HIVES, 11/04/16) Motrin (Verified Allergy, Severe, swelling, 11/04/16) Prednisone (Verified Allergy, Severe, Chest Pain, 11/04/16) ELEVATED HT RATE *MDRO Multi-Drug Resistant Organism (Verified Adverse Reaction, Unknown, ) MRSA PCR Screen POSITIVE - 11/05/2016 Past Medical History Bladder cancer, COPD, hypertension Past Surgical History Hernia repair, appendectomy Recent surgery this admission include umbilical hernia repair, radical cystoprostatectomy Reported Medications Current Medications Medications (Trade) Dose Ordered Sig/Julia Route Start Time Stop Time Status Last Admin (Protonix Inj) 40 mg Q24H IV PUSH 11/05/16 14:00 11/11/16 13:14 (Zofran Inj) 4 mg Q6HR PRN IV PUSH 11/05/16 13:00 11/10/16 08:20 (Ofirmev Inj) 1,000 mg Q6H IV 11/05/16 14:00 11/11/16 13:14 (Lipitor) 40 mg HS PO 11/05/16 21:00 Hold 11/08/16 20:07 (ZyrTEC) 10 mg DAILY PO 11/06/16 09:00 Hold 11/09/16 09:22 (Cozaar) 100 mg DAILY PO 11/05/16 17:00 Hold 11/09/16 09:22 (Symbicort 160-4.5 Inh) 1 puff BID INH 11/05/16 14:00 11/07/16 09:00 Patient Own Medication PT OWN MED: SPIR... DAILY INH 11/05/16 14:00 11/09/16 09:00 (NS 1000 ml Inj) 1,000 ml @ 83 mls/hr Q12H3M IV 11/05/16 14:00 11/11/16 13:14 (Morphine Inj) 4 mg Q3H PRN IV PUSH 11/07/16 13:30 11/10/16 11:13 (Tums Chew) 1,000 mg Q6H PRN CHEW 11/09/16 03:00 11/10/16 08:21 (Phenergan Inj) 10 mg Q6H PRN IM 11/09/16 03:45 Hold 11/09/16 03:48 (Reglan Inj) 5 mg Q8HR IV PUSH 11/10/16 09:00 11/11/16 13:14 (Vasotec Inj) 1.25 mg Q6H PRN IV PUSH 11/10/16 09:00 11/10/16 09:29 (Lasix Inj) 20 mg ONCE ONCE IV PUSH 11/11/16 19:00 11/11/16 19:01 (SoluMEDROL INJ) 40 mg Q6HR IV PUSH 11/11/16 18:00 11/16/16 17:59 UNV Family History Mother had diabetes mellitus. Family history does include heart disease Social History Patient denies using tobacco or alcohol. Physical Exam Vital Signs Vital Signs Date Time Temp Pulse Resp B/P Pulse Ox O2 Delivery O2 Flow Rate FiO2 11/11/16 12:00 96.5 90 17 153/61 97 11/11/16 09:53 93 Nasal Cannula 4.00 11/11/16 08:00 96.9 117 17 142/62 96 11/11/16 04:10 95 Nasal Cannula 3.00 11/11/16 00:00 97.7 130 22 146/66 92 11/10/16 23:36 92 Nasal Cannula 3.00 11/10/16 21:41 Nasal Cannula 3.00 11/10/16 20:00 97.1 110 20 162/69 97 11/10/16 16:00 94.5 96 17 144/64 96 Physical Exam GENERAL: This is a well-nourished, well-developed patient, in no apparent distress. Using accessory muscles to breathe. SKIN: No rashes, ecchymoses or lesions. Warm and dry. HEAD: Atraumatic. Normocephalic. No temporal or scalp tenderness. EYES: Pupils equal round and reactive. No injection or drainage. ENT: Nose without bleeding, purulent drainage or septal hematoma. Airway patent. NECK: Trachea midline. No lymphadenopathy. Supple, nontender, no meningeal signs. CARDIOVASCULAR: Regular rate and rhythm without murmurs, gallops, or rubs. No JVD. RESPIRATORY: Poor air entry. Diffuse wheezing in the posterior lung roy. Accessory muscle use especially abdominal muscle. GASTROINTESTINAL: Abdomen soft, non-tender, nondistended. No guarding. Hypoactive bowel sound MUSCULOSKELETAL: Extremities without clubbing, cyanosis, or edema. NEUROLOGICAL: Awake and alert. Cranial nerves II through XII intact. No focal neurological deficits. Normal speech. Laboratory Laboratory Tests Test 11/11/16 03:26 Sodium Level 142 Potassium Level 4.7 Chloride Level 107 Carbon Dioxide Level 23.7 Anion Gap 11 Blood Urea Nitrogen 14 Creatinine 0.77 Estimat Glomerular Filtration 100 Rate Random Glucose 121 Calcium Level 8.2 Result Diagram: 11/09/16 0616 11/11/16 0326 Imaging Last Impressions Lower Extremity Ultrasound 11/11/16 0000 Signed Impressions: Service Date/Time: Friday, November 11, 2016 10:03 - CONCLUSION: Negative exam with no evidence of deep venous thrombosis. Orion Aguilera MD Chest X-Ray 11/11/16 0000 Signed Impressions: Service Date/Time: Friday, November 11, 2016 11:46 - CONCLUSION: Minimal bibasilar patchiness consistent with atelectasis and/or mild infiltrates. Clinical correlation is recommended. Renoz Bhandari MD Assessment and Plan Problem List: (1) Acute exacerbation of chronic obstructive pulmonary disease (COPD) ICD Code: J44.1 Status: Acute (2) Bladder cancer ICD Code: C67.9 Status: Acute (3) HTN (hypertension) ICD Code: I10 Status: Acute (4) Atrial flutter ICD Code: I48.92 Status: Acute Assessment and Plan Mr. Edwards is a pleasant 70-year-old male with a history of bladder cancer, COPD, hypertension who underwent radical cystoprostatectomy, umbilical hernia repair during this admission. Hospitalist service was consulted for COPD exacerbation as well as general medical management. - Bladder cancer - status post radical cystoscopy prostatectomy. Management per urology. - Acute exacerbation of COPD - Patient is requiring 4 L of oxygen general nasal cannula. He is also using accessory muscles. - We'll start patient on levofloxacin 750 mg intravenously for now. - Also start patient on Solu Medrol 40 mg IV every 6 hours - Breathing treatment with DuoNeb every 4 hours while awake - We'll obtain an ABG. - We would like to use BiPAP when necessary tonight. However patient has an NG tube for possible bowel obstruction. - If possible we'll use BiPAP tonight. - Patient's overall respiratory status is guarded. - Probable small bowel obstruction - Obtain a KUB. If it does not show any obstruction will take the NG tube out. - If NG tube comes out we'll try to use BiPAP tonight. Discussed with the respiratory therapist. - Atrial flutter - Place patient on telemetry. - We'll have to discuss with patient later regarding anticoagulation. - Hypertension - currently well controlled without any medication. Patient apparently takes Micardis at home. - We'll continue to monitor. If indicated will restart patient's home medication. Full code. SCDs. Consider Lovenox or heparin for DVT prophylaxis if okay with urology. Thank you for the consult. We'll continue to follow this patient with you. Vidhya Rodriguez DO Nov 11, 2016 3:54 pm
[2016-11-11] MEDS: RESP: ALBUTEROL 2.5 MG/IPRATROPIUM 0.5 MG NEB (SCH) NEB (16:47)
[2016-11-11 16:53] LABS: CKMB 5.8 NG/ML (0.5-3.6)
[2016-11-11 17:01] LABS: BLOOD GAS BASE EXCESS -3.4 mmol/L (-2-2); BLOOD GAS CARBOXYHEMOGLOBIN 1.6 % (0-4); BLOOD GAS HCO3 22 mmol/L (22-26); BLOOD GAS METHEMOGLOBIN 0.8 % (0-2); BLOOD GAS O2 HGB SATURATION 91 % (90-100); BLOOD GAS OXYGEN CONTENT 12.1 Vol % (12.0-20.0); BLOOD GAS PCO2 48 mmHg (38-42); BLOOD GAS PO2 71 mmHg (61-120); BLOOD GAS TOTAL HGB 9.4 G/DL (12.0-16.0); TEMP CORR TO 98.6
[2016-11-11 17:03] LABS: CRITICAL VALUE YES; DRAW SITE RT RADIAL; LITER FLOW 4 L/M; NUMBER OF ARTERIAL PUNCTURES 1; OXYGEN DEVICE NASAL CANNULA; STAT NO; ULNAR PULSE PRESENT
--- NOTE | 2016-11-11 17:27 | RADRPT ---
EXAM DATE/TIME: 11/11/2016 17:02 [facility] COMPARISON: No previous studies available for comparison. INDICATIONS : Distention. Possible ileus. MEDICAL HISTORY : Carcinoma, bladder. SURGICAL HISTORY : Appendectomy. Colostomy. ENCOUNTER: Initial ACUITY: 3 days PAIN SCORE: 5/10 LOCATION: Bilateral abdomen. FINDINGS: Supine view of the abdomen was performed. There is definite air distention of small bowel loops in th e left abdomen. Of note, the patient has a history of partial colectomy and therefore, there is proba ble distortion of the normal distribution of bowel gas. Loops of colon in the right abdomen are decom pressed, however. As such, a partial small bowel obstruction cannot be occluded. There are double-J stents extending in the right lower quadrant, likely into a ileal conduit. Superfi cial skin noah project over the lower abdomen and pelvis. No pneumoperitoneum. Osseous structures are intact. CONCLUSION: 1. Air distention of small bowel loops in the left upper abdominal quadrant with decompression of the visualized portions of the colon. Pattern is concerning for possible early small bowel obstruction v ersus focal hypodynamic ileus. This study will serve as a baseline for followup imaging. 2. Postsurgical changes characteristic of ileal conduit with bilateral double-J stents terminating in the right lower abdominal quadrant. Mando Rodriguez MD on November 11, 2016 at 17:21 Board Certified Radiologist. This report was verified electronically.
[2016-11-11] MEDS ORDERED: methylPREDNISolone SOD SUCC 40 MG/1 ML VIAL IV PUSH SCH (18:00)
[2016-11-11] MEDS: LEVOFLOXACIN 750 MG PREMIX INJ 150 ML IV SCH (18:26)
[2016-11-11] MEDS ORDERED: DILTIAZEM HCL 25 MG/5 ML VIAL IVP ONE (19:00)
[2016-11-11] MEDS ORDERED: FUROSEMIDE 20 MG/2 ML VIAL IV PUSH ONE (19:00)
[2016-11-11] MEDS: DILTIAZEM INJ 125 MG in SODIUM CHLORIDE 0.9% INJ 100 ML IV SCH (20:23)
[2016-11-11] MEDS: MORPHINE SULFATE 4 MG/ML INJ IV PUSH PRN (22:33)
[2016-11-12] VITALS (31 sets, daily range): BP systolic 95–157; BP diastolic 46–65; PULSE 87–148; RESP 18–27; TEMP 97–98.2; O2SAT 94–99
[2016-11-12 01:30] LABS: BICARBONATE 26.4 MEQ/L (21.0-32.0); POTASSIUM 3.8 MEQ/L (3.5-5.1)
[2016-11-12] MEDS: ACETAMINOPHEN 1000 MG/100 ML VIAL IV SCH ×4 (02:00→21:03)
[2016-11-12] MEDS ORDERED: DILTIAZEM HCL 25 MG/5 ML VIAL IV ONE ×2 (02:00→05:15)
[2016-11-12] MEDS ORDERED: DIGOXIN 0.5 MG/2 ML VIAL IV PUSH ONE (03:30)
[2016-11-12] MEDS ORDERED: ATROPINE SULFATE 1 MG/10 ML SYRINGE ONE (03:48)
[2016-11-12] MEDS ORDERED: LIDOCAINE HCL 2% 100 MG/5 ML SYRINGE ONE ×2 (03:48→03:50)
[2016-11-12] MEDS ORDERED: EPINEPHrine HCL (1:10,000) 1 MG/10 ML SYRINGE ONE ×2 (03:48→03:50)
[2016-11-12] MEDS ORDERED: IOHEXOL 350 MG/ML 10 ML VIAL (for RAD DIAG) IV ONE (04:14)
--- NOTE | 2016-11-12 04:23 | RADRPT ---
EXAM DATE/TIME: 11/12/2016 04:09 [facility] COMPARISON: CHEST PA & LAT, November 11, 2016, 11:46. INDICATIONS : Unexplained tachycardia, evaluate for pulmonary embolism. IV CONTRAST: 70 cc Omnipaque 350 (iohexol) IV RADIATION DOSE: 23.52 CTDIvol (mGy) MEDICAL HISTORY : Cardiovascular disease. Hypertension. Chronic obstructive pulmonary disease.Bladder cancer SURGICAL HISTORY : Appendectomy ENCOUNTER: Initial ACUITY: 1 day PAIN SCALE: 3/10 LOCATION: chest TECHNIQUE: Volumetric scanning of the chest was performed using a pulmonary embolism protocol MIP images were re constructed. Using automated exposure control and adjustment of the mA and/or kV according to patien t size, radiation dose was kept as low as reasonably achievable to obtain optimal diagnostic quality images. FINDINGS: There are severe emphysematous changes noted. There is consolidation within both lower lobes, as well as right upper lobe posteriorly. Right hilar adenopathy is present up to 1.3 cm. There are small meera ateral pleural effusions. Cholelithiasis is noted. No evidence for pulmonary embolism. CONCLUSION: 1. No evidence for pulmonary embolism. 2. Abnormal patchy areas of pulmonary consolidation are noted as described above. Small pleural effus ions. 3. Emphysema. Timmy Jacobson MD on November 12, 2016 at 4:20 Board Certified Radiologist. This report was verified electronically.
[2016-11-12 04:47] LABS: AUTOMATED NEUTROPHIL # 15.9 TH/MM3 (1.8-7.7); BASOPHIL % 0.1 % (0.0-2.0); EOSINOPHIL % 0.1 % (0.0-4.0); HEMATOCRIT 27.3 % (39.0-51.0); LYMPH % 4.8 % (9.0-44.0); LYMPHOCYTE # 0.9 TH/MM3 (1.0-4.8); MEAN CELL VOLUME 95.9 FL (80.0-100.0); MEAN CORPUSCULAR HEMOGLOBIN 32.2 PG (27.0-34.0); MEAN CORPUSCULAR HGB CONC 33.6 % (32.0-36.0); MONO % 7.1 % (0.0-8.0); NEUT % 87.9 % (16.0-70.0); PLATELET COUNT 343 TH/MM3 (150-450); RED BLOOD COUNT 2.84 MIL/MM3 (4.50-5.90); RED CELL DISTRIBUTION WIDTH 14.6 % (11.6-17.2)
[2016-11-12 04:50] LABS: HEMO FLAGS AUTO DIFF
[2016-11-12] MEDS ORDERED: AMIODARONE INJ 150 MG in DEXTROSE 5% IN WATER 100ML INJ 97 ML IV ONE ×2 (05:15)
[2016-11-12 05:30] LABS: BANDS 27 % (0-6); CORRECTED NUCLEATED RBC 2 /100 WBC (0-0); METAMYELOCYTES 12 % (0-1); MYELOCYTES 2 % (0-0); NEUTROPHIL # MANUAL DIFF 16.2 TH/MM3 (1.8-7.7); POLYS (SEG NEUTROPHILS) 48 % (16-70); PROMYELOCYTES 1 % (0-0); SCAN/DIFF FINAL DIFF MANUAL; WBC DIFF SAMPLE 100
[2016-11-12 05:31] LABS: DOHLE BODIES PRESENT (NONE SEEN); PLATELET ESTIMATE SMEAR NORMAL (NORMAL); PLATELET MORPHOLOGY NORMAL (NORMAL); TOXIC GRANULATION 1+ (NORMAL)
[2016-11-12] MEDS: DILTIAZEM INJ 125 MG in SODIUM CHLORIDE 0.9% INJ 100 ML IV SCH ×2 (05:42→18:06)
[2016-11-12] MEDS: AMIODARONE INJ 450 MG in DEXTROSE 5% IN WATE(EXCEL) INJ 241 ML IV SCH ×4 (05:42→13:40)
[2016-11-12] MEDS: METOCLOPRAMIDE HCL 10 MG/2 ML VIAL IV PUSH SCH ×3 (06:47→21:04)
[2016-11-12] MEDS: RESP: ALBUTEROL 2.5 MG/IPRATROPIUM 0.5 MG NEB (SCH) NEB ×2 (08:00→11:04)
--- NOTE | 2016-11-12 08:05 | HHI.PR ---
Subjective Remarks Follow-up for acute COPD exacerbation, small bowel obstruction, atrial flutter/ atrial fibrillation. Patient is currently doing well. He is tolerating BiPAP. He reports feeling better on BiPAP. His breathing is not as labored. Denies any fever or chills. Objective Vitals Vital Signs Date Time Temp Pulse Resp B/P Pulse Ox O2 Delivery O2 Flow Rate FiO2 11/12/16 07:54 120 11/12/16 07:53 98.2 120 24 95/51 99 11/12/16 06:00 104 11/12/16 05:15 95 35 11/12/16 05:00 148 11/12/16 04:00 142 11/12/16 03:00 97.0 148 27 110/55 95 11/12/16 03:00 95 Nasal Cannula 4.00 11/12/16 03:00 145 11/12/16 02:00 144 11/12/16 01:00 142 11/12/16 00:00 97 Bi-Pap 35 11/11/16 23:10 97 35 11/11/16 23:00 95 Nasal Cannula 4.00 11/11/16 23:00 97.1 127 27 95/58 97 11/11/16 23:00 167 11/11/16 23:00 167 11/11/16 22:00 152 11/11/16 21:00 134 11/11/16 20:45 134 11/11/16 20:45 134 11/11/16 20:40 97.0 127 20 110/65 97 11/11/16 20:38 95 Nasal Cannula 4.00 11/11/16 17:07 95 Nasal Cannula 4.00 11/11/16 16:00 95.5 97 17 124/57 95 11/11/16 13:44 18 11/11/16 12:00 96.5 90 17 153/61 97 11/11/16 09:53 93 Nasal Cannula 4.00 I/O 11/11/16 11/11/16 11/11/16 11/12/16 11/12/16 11/12/16 07:00 15:00 23:00 07:00 15:00 23:00 Intake Total 947 ml 425 ml 0 ml 600 ml Output Total 500 ml 2300 ml 900 ml 650 ml Balance 447 ml -1875 ml -900 ml -50 ml Intake Oral 0 ml 0 ml 600 ml IV Total 947 ml 425 ml Output Urine Total 150 ml 1900 ml 900 ml 650 ml Gastric Drainage Total 350 ml 400 ml # Bowel Movements 0 0 Result Diagram: 11/12/16 0440 11/12/16 [address] Angiography 11/12/16 0000 Signed Impressions: Service Date/Time: Saturday, November 12, 2016 04:09 - CONCLUSION: 1. No evidence for pulmonary embolism. 2. Abnormal patchy areas of pulmonary consolidation are noted as described above. Small pleural effusions. 3. Emphysema. Timmy Jacobson MD Lower Extremity Ultrasound 11/11/16 0000 Signed Impressions: Service Date/Time: Friday, November 11, 2016 10:03 - CONCLUSION: Negative exam with no evidence of deep venous thrombosis. Orion Aguilera MD Chest X-Ray 11/11/16 0000 Signed Impressions: Service Date/Time: Friday, November 11, 2016 11:46 - CONCLUSION: Minimal bibasilar patchiness consistent with atelectasis and/or mild infiltrates. Clinical correlation is recommended. Renzo Bhandari MD Abdomen X-Ray 11/11/16 0000 Signed Impressions: Service Date/Time: Friday, November 11, 2016 17:02 - CONCLUSION: 1. Air distention of small bowel loops in the left upper abdominal quadrant with decompression of the visualized portions of the colon. Pattern is concerning for possible early small bowel obstruction versus focal hypodynamic ileus. This study will serve as a baseline for followup imaging. 2. Postsurgical changes characteristic of ileal conduit with bilateral double-J stents terminating in the right lower abdominal quadrant. Mando Rodriguez MD Objective Remarks GENERAL: Alert, oriented x 3, NAD. On BiPAP mask. SKIN: Warm and dry. HEAD: Normocephalic. EYES: No scleral icterus. No injection or drainage. NECK: Supple, trachea midline. No JVD or lymphadenopathy. CARDIOVASCULAR: Regular rate and rhythm without murmurs, gallops, or rubs. RESPIRATORY: Breath sounds equal bilaterally. No accessory muscle use. GASTROINTESTINAL: Abdomen soft, non-tender, nondistended. No appreciable bowel sounds. MUSCULOSKELETAL: No cyanosis, or edema. BACK: Nontender without obvious deformity. No CVA tenderness. Procedures 11/05/2016 Symptomatic large supraumbilical hernia. Bladder cancer requiring radical cystectomy. 11/08/2016 1. Radical cystoprostatectomy with ileal conduit. 2. Bilateral pelvic lymph node dissection. A/P Problem List: (1) Acute exacerbation of chronic obstructive pulmonary disease (COPD) ICD Code: J44.1 Status: Acute (2) Bladder cancer ICD Code: C67.9 Status: Acute (3) HTN (hypertension) ICD Code: I10 Status: Acute (4) Atrial flutter ICD Code: I48.92 Status: Acute Assessment and Plan Mr. Edwards is a pleasant 70-year-old male with a history of bladder cancer, COPD, hypertension who underwent radical cystoprostatectomy, umbilical hernia repair during this admission. Hospitalist service was consulted for COPD exacerbation as well as general medical management. He developed atrial flutter with RVR. Patient was transferred to [facility]. - Bladder cancer - status post radical cystoscopy prostatectomy. Management per urology. - Acute exacerbation of COPD - Patient is requiring 4 L of oxygen. Tolerating BiPAP well. Continue PRN BiPAP and BiPAP at night. - Continue levofloxacin 750 mg intravenously - Breathing treatment with DuoNeb every 4 hours while awake - Partial small bowel obstruction - Continue NG suction. Continue gentle hydration. - Expect improvement within a day or two. - Atrial flutter with RVR - [id number] score 2 (Age, Hx of HTN). - Continue Cardizem drip. We can start PO Cardizem as well. - Night hospitalist started patient on Amiodarone. Amiodarone may not be necessary. Cardiology consult was placed. We will wait for Cardiology recommendations. - Future Ablation may be considered once patient is more stable. - Patient will likely benefit from Anticoagulation for Aflutter. - Hypertension - currently well controlled without any medication. Patient apparently takes Micardis at home. - We'll continue to monitor. If indicated will restart patient's home medication. Full code. Heparin SQ. Vidhya Rodriguez DO Nov 12, 2016 8:05 am
[2016-11-12] MEDS: SPIRIVA RESPIMAT INH SCH (09:06)
[2016-11-12] MEDS: BUDESONIDE-FORMOTEROL 160/4.5 MCG INHALER INH SCH ×2 (09:06→21:04)
--- NOTE | 2016-11-12 09:12 | HHI.PR ---
Subjective Remarks transferred to ICU overnight. Went into Aflutter with RVR, worsening SOB. On BiPaP. CT angiogram negative for PE. Good diuresis after Lasix, over 4L UOP. Denies CP. Denies fevers, chills, nausea. Passed flatus yesterday. On Cardizem, Amiodarone drip. Objective Vital Signs Vital Signs Date Time Temp Pulse Resp B/P Pulse Ox O2 Delivery O2 Flow Rate FiO2 11/12/16 09:01 99 Nasal Cannula 11/12/16 07:54 120 11/12/16 07:53 98.2 120 24 95/51 99 11/12/16 06:00 104 11/12/16 05:15 95 35 11/12/16 05:00 148 11/12/16 04:00 142 11/12/16 03:00 97.0 148 27 110/55 95 11/12/16 03:00 95 Nasal Cannula 4.00 11/12/16 03:00 145 11/12/16 02:00 144 11/12/16 01:00 142 11/12/16 00:00 97 Bi-Pap 35 11/11/16 23:10 97 35 11/11/16 23:00 95 Nasal Cannula 4.00 11/11/16 23:00 97.1 127 27 95/58 97 11/11/16 23:00 167 11/11/16 23:00 167 11/11/16 22:00 152 11/11/16 21:00 134 11/11/16 20:45 134 11/11/16 20:45 134 11/11/16 20:40 97.0 127 20 110/65 97 11/11/16 20:38 95 Nasal Cannula 4.00 11/11/16 17:07 95 Nasal Cannula 4.00 11/11/16 16:00 95.5 97 17 124/57 95 11/11/16 13:44 18 11/11/16 12:00 96.5 90 17 153/61 97 11/11/16 09:53 93 Nasal Cannula 4.00 I/O 11/11/16 11/11/16 11/11/16 11/12/16 11/12/16 11/12/16 07:00 15:00 23:00 07:00 15:00 23:00 Intake Total 947 ml 425 ml 0 ml 600 ml Output Total 500 ml 2300 ml 900 ml 650 ml Balance 447 ml -1875 ml -900 ml -50 ml Intake Oral 0 ml 0 ml 600 ml IV Total 947 ml 425 ml Output Urine Total 150 ml 1900 ml 900 ml 650 ml Gastric Drainage Total 350 ml 400 ml # Bowel Movements 0 0 Result Diagram: 11/12/16 0440 11/12/16 0030 Objective Remarks NAD. A/O x 3 labored breathing but improved. tachycardic, irregular. abd soft, less distended, some mild tenderness around umbilicus, no peritoneal signs. Serosanguineous drainage from inferior portion of midline incision, no erythema or fluctuance. stoma edematous, but more pink with less bruising, viable. Scrotum less edematous, soft Ext NT. No c/c/e Procedures Radical Cystoprostatectomy, Pelvic LN dissection, Ileal Conduit 11/05/2016 Assessment and Plan Assessment and Plan s/p Radical Cystoprostatectomy, Ileal Conduit with post operative ileus, A- flutter with RVR. -Keep NPO until bowel function returns. NGT tube drainage slowing. KUB noted, likely shows ileus. Stents in good position. -Good UOP with diuresis. Keep fluids at 83 ml/hr. -WBC elevated. On Levaquin 750 mg daily. Cultures pending. -Cardiology consult pending. On Amiodarone, Cardizem drip. -DVT prophylaxis. -PT/OT -Hemoglobin stable. -Appreciate all other service input. Duncan Huff MD Nov 12, 2016 09:12
[2016-11-12] MEDS ORDERED: HEPARIN SODIUM - SQ 10,000 UNITS/ML VIAL SQ SCH (10:00)
[2016-11-12] MEDS: RESP: LEVALBUTEROL HYDROCHLORIDE 1.25 MG/3 ML NEB (SCH) NEB ×3 (11:38→21:11)
--- NOTE | 2016-11-12 12:50 | MB ---
cc: DENY CROSS DATE OF CONSULTATION 11/12/2016 DATE OF 1945 REASON FOR CONSULTATION Atrial fibrillation with RVR HISTORY OF PRESENT ILLNESS 70-year-old female with past medical history significant for bladder cancer, COPD/emphysema on home O2, hypertension, CAD status post DC and atrial fibrillation on no chronic oral anticoagulation who was admitted to the hospital to undergo a radical cystoprostatectomy, bilateral pelvic lymph node dissection and primary umbilical hernia repair. The patient underwent a long surgery without complications, however, while he has been the hospital, stay has been complicated with SBO, ?infection, difficulty breathing and atrial fibrillation with rapid ventricular response. Cardiology has been consulted for further management. He was started on Amiodarone and Cardizem drips for rate control, no anticoagulation. Records from the his vest front presser Dr. Hung shows that he had a nuclear stress test on 09/23/2016 that shows a moderate fixed defect unchanged from previous stress test with an ejection fraction of 62 %. Currently the patient denies chest pain, shortness of breath, palpitation, leg edema, syncope, PND, orthopnea. REVIEW OF SYSTEMS Negative except for what is mentioned in the HPI. PAST MEDICAL HISTORY 1. COPD on oxygen at home. 2. Hypertension 3. Hyperlipidemia 4. Bladder cancer 5. CAD status post DC in the past. PAST SURGICAL HISTORY 1. Hernia repair 2. Appendectomy 3. Radical cystoprostatectomy CARDIAC HOME MEDICATIONS 1. aspirin 81 mg p.o. daily 2. Lipitor 40 mg p.o. daily ALLERGIES MOTRIN, PREDNISONE, AND IBUPROFEN. FAMILY HISTORY Mother had diabetes. SOCIAL HISTORY He is a former smoker. He denies alcohol or illicit drug use. PHYSICAL EXAMINATION VITAL SIGNS: Temperature 98.2, pulse 102, blood pressure 95/51, O2 sat 99% via nasal cannula. In's and out's show a negative 2825 cc balance and his weight has basically been unchanged since admission of 92.3 kg. GENERAL: He is awake and then a oriented x3 in no acute distress lying in bed. NECK: No JVD, no carotid bruits. He has an NG tube in place. HEART: Irregularly irregular, no murmurs, rubs or gallops appreciated. LUNGS: He has bilateral crackles and rales with wheezing. Poor inspiratory effort. ABDOMEN: Tense. Decreased bowel sounds. Tender to the lower area over where the operation was. EXTREMITIES: No cyanosis, no edema. Pulses throughout. DATA CBC white count trending up is 18, hemoglobin 9.2, hematocrit of 27, platelet count of 343, INR 1.1. Chemistries sodium 142, potassium 3.8, chloride 107, bicarb 26, BUN 21, creatinine 0.9, troponin 0.16. Microbiology, blood cultures are pending. IMAGING STUDIES CTA of the chest is negative for no evidence of pulmonary emboli. There are abnormal patchy areas of pulmonary consolidation and a small pleural effusions. Abdomen KUB shows a air distension in the small bowel loops concerning for possible early small bowel obstruction. Chest x-ray shows minimal bibasilar patchiness consistent with atelectasis and mild infiltrates. EKG shows a atrial fibrillation with a rapid ventricular response and nonspecific ST changes. director translational shows atrial fibrillation with a heart rate in the 120's. ASSESSMENT/PLAN A 70-year-old male with a history of coronary artery disease, COPD on oxygen at home, hypertension, hyperlipidemia, bladder cancer status post removal now afib with RVR in the setting of questionable small bowel obstruction, elevated white count and the infiltrates on the chest x-ray concerning for an infectious process. He has gone through to atrial fibrillation with right ventricular response. He remains afebrile and hemodynamically stable, however, in a delicate condition. He has been started on a Cardio and Amiodarone drip with some control of his heart rate however not optimal. It is hard to tell if his atrial fibrillation with RVR is an isolated issue, but rather being exacerbated by his underlying recent surgery/infection/COPD/small bowel obstruction. At this point, we recommend to continue rate control with a amiodarone drip and a Cardizem drip given patient GI issues. When patient starts tolerating PO he can be transition to PO Cardizem. I have spoke to surgery and there OK to starting IV anticoagulation. CHADS2>2. We will start heparin. Thank you for the opportunity to take part in the care of this patient. We will follow with you. MD CONNOR Boyle/CHANELLE /11:41 AM /12:32 PM VALORIE
[2016-11-12] MEDS: PANTOPRAZOLE SODIUM 40 MG VIAL IV PUSH SCH (13:41)
[2016-11-12 14:34] LABS: INTERNATIONAL NORMALIZED RATIO 1.6 RATIO; PROTHROMBIN TIME - PATIENT 17.5 SEC (9.8-11.6)
[2016-11-12 14:46] LABS: MEAN CELL VOLUME 93.9 FL (80.0-100.0); MEAN CORPUSCULAR HEMOGLOBIN 32.4 PG (27.0-34.0); MEAN CORPUSCULAR HGB CONC 34.4 % (32.0-36.0); PLATELET COUNT 406 TH/MM3 (150-450); RED BLOOD COUNT 2.77 MIL/MM3 (4.50-5.90); RED CELL DISTRIBUTION WIDTH 14.3 % (11.6-17.2); REVIEW FLAG FINAL; WHITE BLOOD COUNT 20.2 TH/MM3 (4.0-11.0)
[2016-11-12] MEDS ORDERED: HEPARIN SODIUM - IV 10,000 UNITS/10 ML VIAL IV PRN (15:15)
--- NOTE | 2016-11-12 15:45 | HHI.PR ---
Subjective Subjective Notes asked to check on pt by BECKY, pt up in chair, visiting with family. reports no BM or flatus. no N/V. has been having cardiac and pulmonary issues Objective Vitals/I&O Vital Signs Date Time Temp Pulse Resp B/P Pulse Ox O2 Delivery O2 Flow Rate FiO2 11/12/16 11:30 97.6 110 18 117/49 95 11/12/16 09:01 Nasal Cannula 11/12/16 05:15 35 11/12/16 03:00 4.00 Labs Laboratory Tests Test 11/11/16 11/11/16 11/12/16 11/12/16 15:55 16:45 00:30 04:40 Total Creatine Kinase 490 Creatine Kinase MB 5.8 Creatine Kinase MB % 1.2 Troponin I 0.16 Blood Gas Puncture Site RT RADIAL Blood Gas Patient Temperature 98.6 Blood Gas HCO3 22 Blood Gas Base Excess -3.4 Blood Gas Oxygen Saturation 91 Arterial Blood pH 7.29 Arterial Blood Partial 48 Pressure CO2 Arterial Blood Partial 71 Pressure O2 Arterial Blood Oxygen Content 12.1 Arterial Blood 1.6 Carboxyhemoglobin Arterial Blood Methemoglobin 0.8 Blood Gas Hemoglobin 9.4 Oxygen Delivery Device NASAL CANNULA Blood Gas Liter Flow 4 Sodium Level 142 Potassium Level 3.8 Chloride Level 107 Carbon Dioxide Level 26.4 Anion Gap 9 Blood Urea Nitrogen 21 Creatinine 0.90 Estimat Glomerular Filtration 83 Rate Random Glucose 149 Calcium Level 8.2 Magnesium Level 2.0 White Blood Count 18.0 Red Blood Count 2.84 Hemoglobin 9.2 Hematocrit 27.3 Mean Corpuscular Volume 95.9 Mean Corpuscular Hemoglobin 32.2 Mean Corpuscular Hemoglobin 33.6 Concent Red Cell Distribution Width 14.6 Platelet Count 343 Mean Platelet Volume 7.2 Neutrophils (%) (Auto) 87.9 Lymphocytes (%) (Auto) 4.8 Monocytes (%) (Auto) 7.1 Eosinophils (%) (Auto) 0.1 Basophils (%) (Auto) 0.1 Neutrophils # (Auto) 15.9 Lymphocytes # (Auto) 0.9 Monocytes # (Auto) 1.3 Eosinophils # (Auto) 0.0 Basophils # (Auto) 0.0 CBC Comment AUTO DIFF Differential Total Cells 100 Counted Neutrophils % (Manual) 48 Band Neutrophils % 27 Lymphocytes % 3 Monocytes % 7 Neutrophils # (Manual) 16.2 Metamyelocytes 12 Myelocytes 2 Promyelocytes 1 Nucleated Red Blood Cells 2 Differential Comment FINAL DIFF MANUAL Toxic Granulation 1+ Dohle Bodies PRESENT Platelet Estimate NORMAL Platelet Morphology Comment NORMAL Red Cell Morphology Comment NORMAL Test 11/12/16 14:14 White Blood Count 20.2 Red Blood Count 2.77 Hemoglobin 9.0 Hematocrit 26.0 Mean Corpuscular Volume 93.9 Mean Corpuscular Hemoglobin 32.4 Mean Corpuscular Hemoglobin 34.4 Concent Red Cell Distribution Width 14.3 Platelet Count 406 Mean Platelet Volume 7.6 Prothrombin Time 17.5 Prothromb Time International 1.6 Ratio Activated Partial 35.0 Thromboplast Time Date/Time Procedure Status Source Growth 11/12/16 05:48 Aerobic Blood Culture Received Blood Peripheral Pending 11/12/16 05:48 Anaerobic Blood Culture Received Blood Peripheral Pending Cardiovascular: Regular Lungs: Clear Abdomen: Post-op tenderness Narrative Exam abdomen distended and quiet. serous drainage from abdominal wound. no pus, no erythema. noah and sutures intact. A/P Assessment and Plan s/p radical cystectomy with ileal conduit reconstruction (small bowel) by dr awan/amy. s/p primary umbilical hernia repair - post op ileus much more likely than sbo. agree with dr awan on bowel rest, NG tube. await bowel function. - watch midline wound for signs of infection. serous drainage at present. dry dressing prn. i would remove a few noah if concerned about wound infection. - pulmonary and cardiac issues being addressed. - will defer surgical management to dr awan. i'm certain he will call me if he has any questions/concerns or needs recommendations. - will see prn. thanks Yrn Melgar MD Nov 12, 2016 15:45
[2016-11-12] MEDS: HEPARIN 25,000 UNITS-D5W 250 ML - PREMIX IV SCH (16:38)
[2016-11-12] MEDS ORDERED: HEPARIN SODIUM - IV 10,000 UNITS/10 ML VIAL IV ONE (17:00)
[2016-11-12] MEDS: FUROSEMIDE 40 MG/4 ML VIAL IV PUSH SCH (18:08)
[2016-11-12] MEDS: LEVOFLOXACIN 750 MG PREMIX INJ 150 ML IV SCH (18:09)
[2016-11-12 21:01] LABS: APTT (PATIENT) 56.6 SEC (24.3-30.1)
--- NOTE | 2016-11-12 23:00 | EKG ---
Date Performed: 11/11/2016 Time Performed: 12:06:03 PTAGE: 70 years EKG: ATRIAL FLUTTER/TACHYCARDIA WITH RAPID VENTRICULAR RESPONSE LOW QRS VOLTAGE IN PRECORDIAL LE ADS NONSPECIFIC ST & T-WAVE ABNORMALITY ABNORMAL ECG PREVIOUS TRACING : 11/05/2016 06.16 Compared to the previous tracing, previously Sinus rhythm with PACs DOCTOR: Jona Drake Interpretating Date/Time 11/12/2016 22:59:23
[2016-11-12 23:48] LABS: APTT (PATIENT) 40.5 SEC (24.3-30.1)
[2016-11-13] VITALS (26 sets, daily range): BP systolic 123–149; BP diastolic 49–67; PULSE 72–113; RESP 18–20; TEMP 96.8–98.2; O2SAT 92–99
[2016-11-13] MEDS: ACETAMINOPHEN 1000 MG/100 ML VIAL IV SCH ×3 (02:10→14:38)
[2016-11-13] MEDS: MORPHINE SULFATE 4 MG/ML INJ IV PUSH PRN (04:26)
[2016-11-13] MEDS: METOCLOPRAMIDE HCL 10 MG/2 ML VIAL IV PUSH SCH ×2 (04:27→14:39)
[2016-11-13] MEDS: RESP: LEVALBUTEROL HYDROCHLORIDE 1.25 MG/3 ML NEB (SCH) NEB ×3 (05:09→16:00)
[2016-11-13] MEDS: AMIODARONE INJ 450 MG in DEXTROSE 5% IN WATE(EXCEL) INJ 241 ML IV SCH ×4 (06:16→21:43)
[2016-11-13] MEDS: DILTIAZEM INJ 125 MG in SODIUM CHLORIDE 0.9% INJ 100 ML IV SCH ×2 (06:17→21:45)
[2016-11-13 06:37] LABS: APTT (PATIENT) 41.3 SEC (24.3-30.1)
[2016-11-13] MEDS: SPIRIVA RESPIMAT INH SCH (09:00)
[2016-11-13] MEDS: FUROSEMIDE 40 MG/4 ML VIAL IV PUSH SCH ×2 (09:19→18:24)
[2016-11-13] MEDS: BUDESONIDE-FORMOTEROL 160/4.5 MCG INHALER INH SCH ×2 (09:21→21:46)
[2016-11-13 12:50] LABS: APTT (PATIENT) 41.6 SEC (24.3-30.1)
--- NOTE | 2016-11-13 13:37 | HHI.PR ---
Subjective Remarks Follow-up for bladder cancer, atrial fibrillation, acute respiratory failure. Patient is currently doing well. He tolerated BiPAP overnight well. Denies any chest pain, shortness of breath, fever or chills. Currently on nasal cannula. Heart rate is better controlled. No bowel movement or flatus. Objective Vitals Vital Signs Date Time Temp Pulse Resp B/P Pulse Ox O2 Delivery O2 Flow Rate FiO2 11/13/16 13:25 94 11/13/16 12:46 18 11/13/16 12:30 103 11/13/16 11:30 97.8 102 18 126/55 98 11/13/16 11:30 107 11/13/16 11:30 Nasal Cannula 4.00 35 11/13/16 10:00 93 11/13/16 09:47 98 Nasal Cannula 4.00 11/13/16 09:00 95 11/13/16 08:00 92 11/13/16 08:00 97.9 87 18 123/62 97 11/13/16 08:00 Nasal Cannula 4.00 35 11/13/16 08:00 92 11/13/16 06:00 74 11/13/16 05:00 72 11/13/16 04:31 20 11/13/16 04:00 72 11/13/16 04:00 97.7 103 20 128/55 98 11/13/16 04:00 98 Bi-Pap 11/13/16 03:00 87 11/13/16 03:00 92 11/13/16 02:00 100 11/13/16 01:28 97 35 11/13/16 01:28 97 BiPAP 35 11/13/16 01:00 84 11/13/16 00:00 98.2 85 20 123/49 96 11/13/16 00:00 73 11/13/16 00:00 96 Bi-Pap 11/12/16 23:00 88 11/12/16 22:00 88 11/12/16 21:27 99 35 11/12/16 21:00 92 11/12/16 20:00 97.6 111 20 157/53 94 11/12/16 20:00 87 11/12/16 20:00 94 Nasal Cannula 4.00 11/12/16 19:00 88 11/12/16 18:00 88 11/12/16 17:00 94 130/50 11/12/16 17:00 94 11/12/16 17:00 94 11/12/16 16:00 97.9 94 24 125/54 99 11/12/16 16:00 94 11/12/16 16:00 95 11/12/16 15:41 98 Nasal Cannula 3.00 11/12/16 15:00 92 11/12/16 15:00 98 11/12/16 15:00 94 Nasal Cannula 4.00 11/12/16 15:00 98 125/51 11/12/16 14:00 96 11/12/16 14:00 96 I/O 11/12/16 11/12/16 11/12/16 11/13/16 11/13/16 11/13/16 07:00 15:00 23:00 07:00 15:00 23:00 Intake Total 600 ml 897 ml 1735 ml Output Total 650 ml 550 ml 2350 ml Balance -50 ml 347 ml -615 ml Intake Oral 600 ml 480 ml IV Total 897 ml 1255 ml Output Urine Total 650 ml 550 ml 1450 ml Gastric Drainage Total 900 ml # Bowel Movements 0 0 Result Diagram: 11/12/16 1414 11/12/16 [address] Angiography 11/12/16 0000 Signed Impressions: Service Date/Time: Saturday, November 12, 2016 04:09 - CONCLUSION: 1. No evidence for pulmonary embolism. 2. Abnormal patchy areas of pulmonary consolidation are noted as described above. Small pleural effusions. 3. Emphysema. Timmy Jacobson MD Lower Extremity Ultrasound 11/11/16 0000 Signed Impressions: Service Date/Time: Friday, November 11, 2016 10:03 - CONCLUSION: Negative exam with no evidence of deep venous thrombosis. Orion Aguilera MD Chest X-Ray 11/11/16 0000 Signed Impressions: Service Date/Time: Friday, November 11, 2016 11:46 - CONCLUSION: Minimal bibasilar patchiness consistent with atelectasis and/or mild infiltrates. Clinical correlation is recommended. Renzo Bhandari MD Abdomen X-Ray 11/11/16 0000 Signed Impressions: Service Date/Time: Friday, November 11, 2016 17:02 - CONCLUSION: 1. Air distention of small bowel loops in the left upper abdominal quadrant with decompression of the visualized portions of the colon. Pattern is concerning for possible early small bowel obstruction versus focal hypodynamic ileus. This study will serve as a baseline for followup imaging. 2. Postsurgical changes characteristic of ileal conduit with bilateral double-J stents terminating in the right lower abdominal quadrant. Mando Rodriguez MD Objective Remarks GENERAL: Alert, oriented x 3, NAD. On nasal cannula. SKIN: Warm and dry. HEAD: Normocephalic. EYES: No scleral icterus. No injection or drainage. NECK: Supple, trachea midline. No JVD or lymphadenopathy. CARDIOVASCULAR: Regular rate and rhythm without murmurs, gallops, or rubs. RESPIRATORY: Breath sounds equal bilaterally. No accessory muscle use. GASTROINTESTINAL: Abdomen soft, non-tender, nondistended. No appreciable bowel sounds. MUSCULOSKELETAL: No cyanosis, or edema. BACK: Nontender without obvious deformity. No CVA tenderness. Procedures 11/05/2016 Symptomatic large supraumbilical hernia. Bladder cancer requiring radical cystectomy. 11/08/2016 1. Radical cystoprostatectomy with ileal conduit. 2. Bilateral pelvic lymph node dissection. A/P Problem List: (1) Acute exacerbation of chronic obstructive pulmonary disease (COPD) ICD Code: J44.1 Status: Acute (2) Bladder cancer ICD Code: C67.9 Status: Acute (3) HTN (hypertension) ICD Code: I10 Status: Acute (4) Atrial flutter ICD Code: I48.92 Status: Acute Assessment and Plan Mr. Edwards is a pleasant 70-year-old male with a history of bladder cancer, COPD, hypertension who underwent radical cystoprostatectomy, umbilical hernia repair during this admission. Hospitalist service was consulted for COPD exacerbation as well as general medical management. He developed atrial flutter with RVR. Patient was transferred to [facility]. - Bladder cancer - status post radical cystoscopy prostatectomy. Management per urology. - Acute exacerbation of COPD - Patient is requiring 4 L of oxygen. Tolerating BiPAP well. Continue PRN BiPAP and BiPAP at night. - Continue levofloxacin 750 mg intravenously until SBO resolves. - Breathing treatment with Xopenex every 4 hours while awake - Partial small bowel obstruction - Continue NG suction. Continue gentle hydration. - Expect improvement within a day or two. - Atrial flutter with RVR - [id number] score 2 (Age, Hx of HTN). - Continue Cardizem drip. We can start PO Cardizem as well. - Cardiology evaluated patient - currently patient is on Cardizem and Amiodarone drip. - Continue Heparin drip started by cardiology. Future anticoagulation with one of the newer anticoagulants would be an option such as Apixaban. - Hypertension - currently well controlled without any medication. Patient apparently takes Micardis at home. - We'll continue to monitor. If indicated will restart patient's home medication. Full code. Heparin Drip. Vidhya Rodriguez DO Nov 13, 2016 1:37 pm
--- NOTE | 2016-11-13 13:59 | HHI.PR ---
Subjective Remarks feels better. breathing improved. denies nausea. Passing some flatus. Denies abdominal pain. On Amiodarone, Cardizem, Heparin drips. Concern about greenish, foul smelling drainage from wound Objective Vital Signs Vital Signs Date Time Temp Pulse Resp B/P Pulse Ox O2 Delivery O2 Flow Rate FiO2 11/13/16 13:25 94 11/13/16 12:46 18 11/13/16 12:30 103 11/13/16 11:30 97.8 102 18 126/55 98 11/13/16 11:30 107 11/13/16 11:30 Nasal Cannula 4.00 35 11/13/16 10:00 93 11/13/16 09:47 98 Nasal Cannula 4.00 11/13/16 09:00 95 11/13/16 08:00 92 11/13/16 08:00 97.9 87 18 123/62 97 11/13/16 08:00 Nasal Cannula 4.00 35 11/13/16 08:00 92 11/13/16 06:00 74 11/13/16 05:00 72 11/13/16 04:31 20 11/13/16 04:00 72 11/13/16 04:00 97.7 103 20 128/55 98 11/13/16 04:00 98 Bi-Pap 11/13/16 03:00 87 11/13/16 03:00 92 11/13/16 02:00 100 11/13/16 01:28 97 35 11/13/16 01:28 97 BiPAP 35 11/13/16 01:00 84 11/13/16 00:00 98.2 85 20 123/49 96 11/13/16 00:00 73 11/13/16 00:00 96 Bi-Pap 11/12/16 23:00 88 11/12/16 22:00 88 11/12/16 21:27 99 35 11/12/16 21:00 92 11/12/16 20:00 97.6 111 20 157/53 94 11/12/16 20:00 87 11/12/16 20:00 94 Nasal Cannula 4.00 11/12/16 19:00 88 11/12/16 18:00 88 11/12/16 17:00 94 130/50 11/12/16 17:00 94 11/12/16 17:00 94 11/12/16 16:00 97.9 94 24 125/54 99 11/12/16 16:00 94 11/12/16 16:00 95 11/12/16 15:41 98 Nasal Cannula 3.00 11/12/16 15:00 92 11/12/16 15:00 98 11/12/16 15:00 94 Nasal Cannula 4.00 11/12/16 15:00 98 125/51 11/12/16 14:00 96 11/12/16 14:00 96 I/O 11/12/16 11/12/16 11/12/16 11/13/16 11/13/16 11/13/16 06:59 14:59 22:59 06:59 14:59 22:59 Intake Total 600 ml 897 ml 1735 ml Output Total 650 ml 550 ml 2350 ml Balance -50 ml 347 ml -615 ml Intake Oral 600 ml 480 ml IV Total 897 ml 1255 ml Output Urine Total 650 ml 550 ml 1450 ml Gastric Drainage Total 900 ml # Bowel Movements 0 0 Result Diagram: 11/12/16 1414 11/12/16 0030 Objective Remarks NAD. A/O x 3 labored breathing but improved. tachycardic, irregular. abd soft, less distended, some mild tenderness around umbilicus, no peritoneal signs. Serosanguineous drainage from inferior portion of midline incision, no erythema or fluctuance. Greenish, fouls smelling drainage from midline incision , concerning for stool. stoma edematous, dark but viable . Scrotum less edematous, soft Ext NT. No c/c/e Procedures Radical Cystoprostatectomy, Pelvic LN dissection, Ileal Conduit 11/05/2016 Assessment and Plan Assessment and Plan s/p Radical Cystoprostatectomy, Ileal Conduit with post operative ileus, A- flutter with RVR. -STAT CT A/P with Oral Contrast. Depending upon results, may need to go to OR emergently. -Check CBC, BMP -Keep NGT, NPO -Levaquin 750 mg IV. -Cardizem, Amiodarone, Heparin drip per Cardiology. -Appreciate other service input. Duncan Huff MD Nov 13, 2016 13:59
[2016-11-13] MEDS ORDERED: DIATRIZOATE MEGLUM/DIATRIZOATE SOD 9 ML CUP PO ONE (14:30)
[2016-11-13] MEDS: PANTOPRAZOLE SODIUM 40 MG VIAL IV PUSH SCH (14:38)
[2016-11-13 14:46] LABS: MEAN CELL VOLUME 94.6 FL (80.0-100.0); MEAN CORPUSCULAR HEMOGLOBIN 31.8 PG (27.0-34.0); MEAN CORPUSCULAR HGB CONC 33.6 % (32.0-36.0); PLATELET COUNT 336 TH/MM3 (150-450); RED BLOOD COUNT 2.44 MIL/MM3 (4.50-5.90); RED CELL DISTRIBUTION WIDTH 14.8 % (11.6-17.2); REVIEW FLAG FINAL; WHITE BLOOD COUNT 18.9 TH/MM3 (4.0-11.0)
[2016-11-13] MEDS: SODIUM CHLOR 0.9% 1000 ML INJ 1,000 ML IV SCH ×2 (14:59→21:42)
[2016-11-13 15:20] LABS: BICARBONATE 27.7 MEQ/L (21.0-32.0); POTASSIUM 3.2 MEQ/L (3.5-5.1)
--- NOTE | 2016-11-13 18:23 | RADRPT ---
EXAM DATE/TIME: 11/13/2016 17:35 [facility] COMPARISON: No previous studies available for comparison. INDICATIONS : Wound leaking after radical cystectomy. ORAL CONTRAST: Prescribed oral contrast ingested. RADIATION DOSE: 19.88 CTDIvol (mGy) MEDICAL HISTORY : Cardiovascular disease. Hypertension. Chronic obstructive pulmonary disease. Blader cancer SURGICAL HISTORY : Appendectomy. cystectomy ENCOUNTER: Initial ACUITY: 1 week PAIN SCALE: 0/10 LOCATION: Abdomen TECHNIQUE: Volumetric scanning of the abdomen and pelvis was performed. Using automated exposure control and ad justment of the mA and/or kV according to patient size, radiation dose was kept as low as reasonably achievable to obtain optimal diagnostic quality images. FINDINGS: Basilar lung consolidation or with small pleural effusions. Trace pericardial fluid. Severe coronary calcifications. NG tube in stomach. Calcified granulomata of the spleen. No significant abnormality in the liver. Mul tiple calcified gallstones in the gallbladder. No postop changes of cystectomy with a urinary diversion procedure. Stents are present in both ureter s and pass through a urostomy in the lower right anterior abdominal wall. There is a small bowel anastomosis just to the right of midline in the lower anterior abdominal regio n. There are multiple locules of air that extends from this anastomosis towards the skin surface near the skin staple line. This probably represents a fistulous tract. Small bowel is dilated proximally, possibly ileus or partial obstruction. There is a small amount of free fluid in the pelvis. There is mild anasarca. CONCLUSION: 1. Postop cystectomy with urinary diversion procedure and urostomy in right lower quadrant anterior a bdominal wall containing 2 ureteral stents passing through a loop of small bowel. 2. Small bowel anastomosis in the lower right anterior abdomen with a fistulous tract containing mult iple locules of air extending from the area of anastomosis towards the skin staple line. 3. Small amount of free fluid in the pelvis. Mild anasarca. 4. Basilar lung consolidation. 5. Multiple gallstones in the gallbladder. Pool Mendoza MD on November 13, 2016 at 18:06 Board Certified Radiologist. This report was verified electronically.
[2016-11-13] MEDS: LEVOFLOXACIN 750 MG PREMIX INJ 150 ML IV SCH (18:25)
[2016-11-13] MEDS ORDERED: DEXTROSE 50% IN WATER 50 ML VIAL(D50) IV PUSH PRN (20:30)
[2016-11-13] MEDS ORDERED: GLUCAGON 1 MG/ML VIAL OTHER PRN (20:30)
[2016-11-13] MEDS ORDERED: POTASSIUM CHLOR 20 MEQ PREMIX 100 ML IV ONE (21:00)
[2016-11-14] VITALS (36 sets, daily range): BP systolic 121–159; BP diastolic 51–66; PULSE 86–108; RESP 18–20; TEMP 96.8–99; O2SAT 93–99
[2016-11-14] MEDS: ACETAMINOPHEN 1000 MG/100 ML VIAL IV SCH ×3 (00:08→14:00)
[2016-11-14] MEDS: MORPHINE SULFATE 4 MG/ML INJ IV PUSH PRN (00:08)
[2016-11-14] MEDS: CALCIUM CARBONATE 500 MG CHEWABLE TAB CHEW PRN (03:59)
[2016-11-14] MEDS: ONDANSETRON HCL 4 MG/2 ML VIAL IV PUSH PRN ×2 (04:15→14:29)
[2016-11-14] MEDS: RESP: LEVALBUTEROL HYDROCHLORIDE 1.25 MG/3 ML NEB (SCH) NEB ×4 (05:21→22:48)
[2016-11-14] MEDS: INSULIN ASPART SUPPLEMENTAL SCALE SQ SCH ×4 (07:00→21:00)
[2016-11-14 07:02] LABS: APTT (PATIENT) 40.1 SEC (24.3-30.1)
[2016-11-14 07:21] LABS: BASOPHIL % 0.1 % (0.0-2.0); EOSINOPHIL # 0.1 TH/MM3 (0-0.4); EOSINOPHIL % 0.3 % (0.0-4.0); LYMPH % 4.6 % (9.0-44.0); LYMPHOCYTE # 0.9 TH/MM3 (1.0-4.8); MEAN CELL VOLUME 94.3 FL (80.0-100.0); MEAN CORPUSCULAR HEMOGLOBIN 31.9 PG (27.0-34.0); MEAN CORPUSCULAR HGB CONC 33.8 % (32.0-36.0); MONO % 5.8 % (0.0-8.0); NEUT % 89.2 % (16.0-70.0); PLATELET COUNT 379 TH/MM3 (150-450); RED BLOOD COUNT 2.65 MIL/MM3 (4.50-5.90); RED CELL DISTRIBUTION WIDTH 14.5 % (11.6-17.2); WHITE BLOOD COUNT 19.1 TH/MM3 (4.0-11.0)
[2016-11-14 07:27] LABS: BICARBONATE 34.9 MEQ/L (21.0-32.0); MAGNESIUM 2.2 MG/DL (1.5-2.5); POTASSIUM 3.2 MEQ/L (3.5-5.1)
[2016-11-14 07:28] LABS: HEMO FLAGS AUTO DIFF
[2016-11-14 08:26] LABS: BANDS 12 % (0-6); CORRECTED NUCLEATED RBC 1 /100 WBC (0-0); EOSINOPHILS 1 % (0-4); METAMYELOCYTES 3 % (0-1); MYELOCYTES 5 % (0-0); NEUTROPHIL # MANUAL DIFF 17.2 TH/MM3 (1.8-7.7); PLATELET ESTIMATE SMEAR NORMAL (NORMAL); PLATELET MORPHOLOGY NORMAL (NORMAL); POLYS (SEG NEUTROPHILS) 70 % (16-70); SCAN/DIFF FINAL DIFF MANUAL; WBC DIFF SAMPLE 100
[2016-11-14] MEDS: SPIRIVA RESPIMAT INH SCH (09:00)
[2016-11-14] MEDS: FUROSEMIDE 40 MG/4 ML VIAL IV PUSH SCH ×2 (09:21→18:00)
[2016-11-14] MEDS: BUDESONIDE-FORMOTEROL 160/4.5 MCG INHALER INH SCH ×2 (09:22→21:00)
[2016-11-14] MEDS: PANTOPRAZOLE SODIUM 40 MG VIAL IV PUSH SCH (14:00)
[2016-11-14] MEDS: SODIUM CHLOR 0.9% 1000 ML INJ 1,000 ML IV SCH (15:05)
--- NOTE | 2016-11-14 16:37 | PD.RAD ---
Post Procedure Progress Note Pre Procedure Diagnosis: (1) Poor appetite (2) Poor nutrition Post Procedure Diagnosis: (1) Poor appetite (2) Poor nutrition Procedure Date: Nov 14, 2016 Supervising Radiologist: Mando Rodriguez Proceduralist/Assist: Tiffany Irwin RT(R)(), Jose Shelton RT(R) Anesthesia: Local Plan of Activity Patient to Unit: Nursing Unit Patient Condition: Good See PACS Report for procedural detail/treatment Central Venous Access Device Procedure 1 Right Internal Jugular Central Line Placement triple lumen English: 7 PICC Line Length (cm): 15 Mando Rodriguez MD Nov 14, 2016 16:37
[2016-11-14] MEDS ORDERED: SODIUM CHLORIDE 0.9% FLUSH 5 ML FLUSH IVF PRN (16:45)
--- NOTE | 2016-11-14 17:31 | HHI.PR ---
Subjective Remarks F/U . Minimal pain. Colostomy bag intact. Tolerated IJ CL for TPN. Tele shows Fib on cardizem drip. dw RN seen with family Objective Vitals Vital Signs Date Time Temp Pulse Resp B/P Pulse Ox O2 Delivery O2 Flow Rate FiO2 11/14/16 17:05 96 Nasal Cannula 4.00 11/14/16 15:18 91 11/14/16 15:14 86 11/14/16 15:14 Nasal Cannula 4.00 35 11/14/16 15:14 98.0 101 18 121/51 93 11/14/16 15:08 18 11/14/16 14:25 89 11/14/16 13:50 89 11/14/16 12:07 90 11/14/16 11:56 97.8 103 20 124/57 95 11/14/16 11:56 96 11/14/16 11:56 Nasal Cannula 4.00 35 11/14/16 10:29 97 Nasal Cannula 4.00 11/14/16 10:22 92 11/14/16 09:56 98 11/14/16 08:05 93 11/14/16 07:30 Nasal Cannula 4.00 35 11/14/16 07:30 103 11/14/16 07:30 98 11/14/16 07:30 97.9 98 18 137/66 95 11/14/16 06:00 101 11/14/16 05:55 97.1 103 20 125/54 95 11/14/16 05:00 94 11/14/16 04:00 92 11/14/16 03:47 Nasal Cannula 4.00 35 11/14/16 03:00 97 11/14/16 02:00 92 11/14/16 01:50 99 35 11/14/16 01:06 96.8 91 18 159/65 97 11/14/16 01:00 94 11/14/16 00:59 Nasal Cannula 4.00 35 11/14/16 00:59 99 11/14/16 00:00 96 11/13/16 23:00 90 11/13/16 22:41 99 Nasal Cannula 2.00 11/13/16 22:00 106 11/13/16 21:00 106 11/13/16 20:38 Nasal Cannula 4.00 35 11/13/16 20:02 96.8 113 20 149/67 92 11/13/16 20:00 92 11/13/16 19:00 97 11/13/16 18:10 109 I/O 11/13/16 11/13/16 11/13/16 11/14/16 11/14/16 11/14/16 07:00 15:00 23:00 07:00 15:00 23:00 Intake Total 1735 ml 1240 ml 1860 ml Output Total 2350 ml 2540 ml 1800 ml Balance -615 ml -1300 ml 60 ml Intake Oral 480 ml 1240 ml 420 ml IV Total 1255 ml 1440 ml Output Urine Total 1450 ml 1640 ml 1800 ml Gastric Drainage Total 900 ml 900 ml # Bowel Movements 0 Result Diagram: 11/14/16 0510 11/14/16 0510 Imaging Last Impressions Abdomen/Pelvis CT 11/13/16 0000 Signed Impressions: Service Date/Time: November 17:35 - CONCLUSION: 1. Postop cystectomy with urinary diversion procedure and urostomy in right lower quadrant anterior abdominal wall containing 2 ureteral stents passing through a loop of small bowel. 2. Small bowel anastomosis in the lower right anterior abdomen with a fistulous tract containing multiple locules of air extending from the area of anastomosis towards the skin staple line. 3. Small amount of free fluid in the pelvis. Mild anasarca. 4. Basilar lung consolidation. 5. Multiple gallstones in the gallbladder. Pool Mendoza MD CT Angiography 11/12/16 0000 Signed Impressions: Service Date/Time: Saturday, November 12, 2016 04:09 - CONCLUSION: 1. No evidence for pulmonary embolism. 2. Abnormal patchy areas of pulmonary consolidation are noted as described above. Small pleural effusions. 3. Emphysema. Timmy Jacobson MD Lower Extremity Ultrasound 11/11/16 0000 Signed Impressions: Service Date/Time: Friday, November 11, 2016 10:03 - CONCLUSION: Negative exam with no evidence of deep venous thrombosis. Orion Aguilera MD Chest X-Ray 11/11/16 0000 Signed Impressions: Service Date/Time: Friday, November 11, 2016 11:46 - CONCLUSION: Minimal bibasilar patchiness consistent with atelectasis and/or mild infiltrates. Clinical correlation is recommended. Renzo Bhandari MD Abdomen X-Ray 11/11/16 0000 Signed Impressions: Service Date/Time: Friday, November 11, 2016 17:02 - CONCLUSION: 1. Air distention of small bowel loops in the left upper abdominal quadrant with decompression of the visualized portions of the colon. Pattern is concerning for possible early small bowel obstruction versus focal hypodynamic ileus. This study will serve as a baseline for followup imaging. 2. Postsurgical changes characteristic of ileal conduit with bilateral double-J stents terminating in the right lower abdominal quadrant. Mando Rodriguez MD Objective Remarks GENERAL: Alert, oriented x 3, NAD. On nasal cannula. SKIN: Warm and dry. HEAD: Normocephalic. EYES: No scleral icterus. No injection or drainage. NECK: Supple, trachea midline. No JVD or lymphadenopathy. CARDIOVASCULAR: Regular rate and rhythm without murmurs, gallops, or rubs. RESPIRATORY: Breath sounds equal bilaterally. No accessory muscle use. GASTROINTESTINAL: Abdomen soft with ileal conduit and colostomy bag MUSCULOSKELETAL: No cyanosis, or edema. BACK: Nontender without obvious deformity. No CVA tenderness. Procedures 11/05/2016 Symptomatic large supraumbilical hernia. Bladder cancer requiring radical cystectomy. 11/08/2016 1. Radical cystoprostatectomy with ileal conduit. 2. Bilateral pelvic lymph node dissection. A/P Problem List: (1) Acute exacerbation of chronic obstructive pulmonary disease (COPD) ICD Code: J44.1 Status: Acute (2) Bladder cancer ICD Code: C67.9 Status: Acute (3) HTN (hypertension) ICD Code: I10 Status: Acute (4) Atrial flutter ICD Code: I48.92 Status: Acute Assessment and Plan Mr. Edwards is a pleasant 70-year-old male with a history of bladder cancer, COPD, hypertension who underwent radical cystoprostatectomy, umbilical hernia repair during this admission. Hospitalist service was consulted for COPD exacerbation as well as general medical management. He developed atrial flutter with RVR. Patient was transferred to [facility]. - Bladder cancer - status post radical cystoscopy prostatectomy. Management per urology. - Acute exacerbation of COPD - Patient is requiring 4 L of oxygen. Tolerating BiPAP well. Continue PRN BiPAP and BiPAP at night. - Continue levofloxacin 750 mg intravenously until SBO resolves. - Breathing treatment with Xopenex every 4 hours while awake - ileus vs Partial small bowel obstruction - Continue NG suction. Continue gentle hydration. - Developed enterocutaneous fistula. Bowel rest, NG and start TPN. Follow- up repeat CT - Atrial flutter with RVR - [id number] score 2 (Age, Hx of HTN). - Continue Cardizem drip. We can start PO Cardizem as well when diet started. - Cardiology evaluated patient - currently patient is on Cardizem and Amiodarone drip. - Continue Heparin drip started by cardiology. Future anticoagulation with one of the newer anticoagulants would be an option such as Apixaban. - Hypertension - currently well controlled without any medication. Patient apparently takes Micardis at home. - We'll continue to monitor. If indicated will restart patient's home medication. Hypokalemia. Replace. Repeat BMP and magnesium in the morning Full code. Heparin Drip. Navi Monreal MD Nov 14, 2016 17:31
[2016-11-14] MEDS: LEVOFLOXACIN 750 MG PREMIX INJ 150 ML IV SCH (18:00)
--- NOTE | 2016-11-14 18:21 | RADRPT ---
EXAM DATE/TIME: 11/14/2016 13:13 [facility] COMPARISON: No previous studies available for comparison. 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 ORAL CONTRAST: No oral contrast ingested. RADIATION DOSE: 11.56 CTDIvol (mGy) MEDICAL HISTORY : Cardiovascular disease. Hypertension. Chronic obstructive pulmonary disease.Bladder cancer SURGICAL HISTORY : Appendectomy. Cystectomy ENCOUNTER: [facility] ACUITY: 4 - 6 days PAIN SCALE: 2/10 LOCATION: abdomen TECHNIQUE: Volumetric scanning of the abdomen and pelvis was performed. Using automated exposure control and ad justment of the mA and/or kV according to patient size, radiation dose was kept as low as reasonably achievable to obtain optimal diagnostic quality images. FINDINGS: Comparison is November 13. There is a slight increase in basilar lung consolidation which may represen t pneumonia. Small right pleural effusion. Moderate to severe coronary calcifications. Nasogastric tube tip is in the distal stomach. No acute findings in the spleen, liver, adrenals or pa ncreas. There are gallstones in the gallbladder. Ureteral stents are present bilaterally beginning proximally on the right in the renal pelvis and on the left side beginning in the proximal ureter. The stents pass distally into a urinary diversion mad e of small bowel and through a urostomy in the right lower quadrant anteriorly as on the prior exam. There is a small bowel anastomosis in the right lower quadrant with a fistulous tract extending from this location to the skin surface with multiple locules of air along the fistulous tract. Along the i nferior aspect of skin noah a small subcutaneous fluid collection is present similar to exam perfo rmed yesterday. There is a small persistent ventral hernia with loop of small bowel within the ventra l hernia. Overall the findings are not significantly changed from November 13. There is a small amount of free fluid in the pelvis. No free air. Mildly dilated loops of small bowel are present but probably slightly improved over the past day. Again seen is anasarca. CONCLUSION: 1. Postoperative cystectomy with urinary diversion procedure and urostomy in the right lower quadrant anterior abdominal wall containing 2 ureteral stents passing through a loop of small bowel. 2. Slight increase in basilar lung consolidation. 3. Slight improvement in dilatation of small bowel since prior study. 4. Stable appearance of a small bowel anastomosis in the right lower quadrant with a fistulous tract containing multiple locules of air extending from the area of anastomosis towards the skin staple anum e. 5. There is a persistent small ventral hernia containing loop of small bowel. Pool Mendoza MD on November 14, 2016 at 18:09 Board Certified Radiologist. This report was verified electronically.
[2016-11-14] MEDS: CLINIMIX E 5/25 2000 mL- >42 mls/hr IV-CENTRAL SCH ×3 (20:00)
[2016-11-14] MEDS: POTASSIUM CHLOR 10 MEQ PREMIX 100 ML IV SCH ×2 (21:00→22:00)
--- NOTE | 2016-11-14 21:00 | PD.CARD.PN ---
Subjective Subjective Remarks no complaints Objective Medications Current Medications Medications (Trade) Dose Ordered Sig/Julia Route Start Time Stop Time Status Last Admin (Protonix Inj) 40 mg Q24H IV PUSH 11/05/16 14:00 11/14/16 14:00 (Zofran Inj) 4 mg Q6HR PRN IV PUSH 11/05/16 13:00 11/14/16 14:29 (Ofirmev Inj) 1,000 mg Q6H IV 11/05/16 14:00 11/14/16 14:00 (Lipitor) 40 mg HS PO 11/05/16 21:00 Hold 11/08/16 20:07 (ZyrTEC) 10 mg DAILY PO 11/06/16 09:00 Hold 11/09/16 09:22 (Cozaar) 100 mg DAILY PO 11/05/16 17:00 Hold 11/09/16 09:22 (Symbicort 160-4.5 Inh) 1 puff BID INH 11/05/16 14:00 11/14/16 09:22 Patient Own Medication PT OWN MED: SPIR... DAILY INH 11/05/16 14:00 11/14/16 09:00 (NS 1000 ml Inj) 1,000 ml @ 83 mls/hr Q12H3M IV 11/05/16 14:00 11/14/16 15:05 (Morphine Inj) 4 mg Q3H PRN IV PUSH 11/07/16 13:30 11/14/16 00:08 (Tums Chew) 1,000 mg Q6H PRN CHEW 11/09/16 03:00 11/14/16 03:59 (Phenergan Inj) 10 mg Q6H PRN IM 11/09/16 03:45 Hold 11/09/16 03:48 Enalaprilat 1.25 mg 1.25 mg Q6H PRN IV PUSH 11/10/16 09:00 11/10/16 09:29 Levofloxacin/ Dextrose 150 ml @ 100 mls/hr Q24H IV 11/11/16 18:00 11/14/16 18:00 Diltiazem HCl 125 mg/Sodium Chloride 125 ml @ 0 mls/hr TITRATE IV 11/11/16 19:00 11/13/16 21:45 (Cordarone Inj/ D5W ([place]) Inj) 250 ml @ 0 mls/hr CONTINUOUS IV 11/12/16 05:15 11/13/16 21:43 Furosemide 40 mg 40 mg BID@09,18 IV PUSH 11/12/16 18:00 11/14/16 18:00 (Heparin-D5W Inj) 250 ml @ 0 mls/hr TITRATE IV 11/12/16 15:15 11/12/16 16:38 (Heparin Inj) 5,000 units UNSCH PRN IV 11/12/16 15:15 (Heparin Inj) 2,500 units UNSCH PRN IV 11/12/16 15:15 (D50w (Vial) Inj) 25 ml UNSCH PRN IV PUSH 11/13/16 20:30 (Glucagon Inj) 1 mg UNSCH PRN OTHER 11/13/16 20:30 (NS Flush) DAILY IVF 11/15/16 09:00 IV Flush UNSCH PRN IVF 11/14/16 16:45 (KCl 10 Meq Premix Inj) 100 ml @ 100 mls/hr Q1H IV 11/14/16 20:00 11/14/16 22:59 Mupirocin 1 applic 1 applic BID EACH NARE 11/14/16 21:00 11/21/16 20:59 Multivitamins 10 ml/Folic Acid 1 mg/Amino Acids/ Electrolytes/ Dextrose 2,010.2 ml @ 75 mls/hr Q24H IV-CENTRAL 11/14/16 20:00 (Liposyn Iii 20% Inj) 250 ml @ 31.25 mls/ hr SuWe@20 IV-CENTRAL 11/16/16 20:00 Vital Signs / I&O Vital Signs Date Time Temp Pulse Resp B/P Pulse Ox O2 Delivery O2 Flow Rate FiO2 11/14/16 18:46 98.7 99 18 147/54 98 11/14/16 18:39 98.7 99 18 153/58 98 11/14/16 18:35 93 11/14/16 17:28 100 11/14/16 17:05 96 Nasal Cannula 4.00 11/14/16 16:30 106 11/14/16 15:18 91 11/14/16 15:14 86 11/14/16 15:14 Nasal Cannula 4.00 35 11/14/16 15:14 98.0 101 18 121/51 93 11/14/16 15:08 18 11/14/16 14:25 89 11/14/16 13:50 89 11/14/16 12:07 90 11/14/16 11:56 97.8 103 20 124/57 95 11/14/16 11:56 96 11/14/16 11:56 Nasal Cannula 4.00 35 11/14/16 10:29 97 Nasal Cannula 4.00 11/14/16 10:22 92 11/14/16 09:56 98 11/14/16 08:05 93 11/14/16 07:30 Nasal Cannula 4.00 35 11/14/16 07:30 103 11/14/16 07:30 98 11/14/16 07:30 97.9 98 18 137/66 95 11/14/16 06:00 101 11/14/16 05:55 97.1 103 20 125/54 95 11/14/16 05:00 94 11/14/16 04:00 92 11/14/16 03:47 Nasal Cannula 4.00 35 11/14/16 03:00 97 11/14/16 02:00 92 11/14/16 01:50 99 35 11/14/16 01:06 96.8 91 18 159/65 97 11/14/16 01:00 94 11/14/16 00:59 Nasal Cannula 4.00 35 11/14/16 00:59 99 11/14/16 00:00 96 11/13/16 23:00 90 11/13/16 22:41 99 Nasal Cannula 2.00 11/13/16 22:00 106 11/13/16 21:00 106 I/O 11/13/16 11/13/16 11/13/16 11/14/16 11/14/16 11/14/16 07:00 15:00 23:00 07:00 15:00 23:00 Intake Total 1735 ml 1240 ml 1860 ml 240 ml Output Total 2350 ml 2540 ml 1800 ml 1300 ml Balance -615 ml -1300 ml 60 ml -1060 ml Intake Oral 480 ml 1240 ml 420 ml 240 ml IV Total 1255 ml 1440 ml Output Urine Total 1450 ml 1640 ml 1800 ml 1300 ml Gastric Drainage Total 900 ml 900 ml # Bowel Movements 0 Physical Exam GENERAL: Well-nourished, well-developed patient. SKIN: Warm and dry. HEAD: Normocephalic. EYES: No scleral icterus. No injection or drainage. NECK: Supple, trachea midline. No JVD or lymphadenopathy. CARDIOVASCULAR: Irr Irr without murmurs, gallops, or rubs. RESPIRATORY: Breath sounds equal bilaterally. No accessory muscle use. GASTROINTESTINAL: Abdomen soft, tender, nondistended. EXTREMITIES: No cyanosis, or edema. NEUROLOGICAL: Awake, alert, and oriented x 3. Non-focal. Laboratory Laboratory Tests Test 11/14/16 05:10 White Blood Count 19.1 TH/MM3 Red Blood Count 2.65 MIL/MM3 Hemoglobin 8.5 GM/DL Hematocrit 25.0 % Mean Corpuscular Volume 94.3 FL Mean Corpuscular Hemoglobin 31.9 PG Mean Corpuscular Hemoglobin 33.8 % Concent Red Cell Distribution Width 14.5 % Platelet Count 379 TH/MM3 Mean Platelet Volume 8.0 FL Neutrophils (%) (Auto) 89.2 % Lymphocytes (%) (Auto) 4.6 % Monocytes (%) (Auto) 5.8 % Eosinophils (%) (Auto) 0.3 % Basophils (%) (Auto) 0.1 % Neutrophils # (Auto) 17.0 TH/MM3 Lymphocytes # (Auto) 0.9 TH/MM3 Monocytes # (Auto) 1.1 TH/MM3 Eosinophils # (Auto) 0.1 TH/MM3 Basophils # (Auto) 0.0 TH/MM3 CBC Comment AUTO DIFF Differential Total Cells 100 Counted Neutrophils % (Manual) 70 % Band Neutrophils % 12 % Lymphocytes % 1 % Monocytes % 8 % Eosinophils % 1 % Neutrophils # (Manual) 17.2 TH/MM3 Metamyelocytes 3 % Myelocytes 5 % Nucleated Red Blood Cells 1 /100 WBC Differential Comment FINAL DIFF MANUAL Platelet Estimate NORMAL Platelet Morphology Comment NORMAL Activated Partial 40.1 SEC Thromboplast Time Sodium Level 142 MEQ/L Potassium Level 3.2 MEQ/L Chloride Level 100 MEQ/L Carbon Dioxide Level 34.9 MEQ/L Anion Gap 7 MEQ/L Blood Urea Nitrogen 22 MG/DL Creatinine 0.74 MG/DL Estimat Glomerular Filtration 104 ML/MIN Rate Random Glucose 118 MG/DL Calcium Level 7.8 MG/DL Magnesium Level 2.2 MG/DL Imaging Last Impressions Abdomen/Pelvis CT 11/14/16 0600 Signed Impressions: Service Date/Time: Monday, November 14, 2016 13:13 - CONCLUSION: 1. Postoperative cystectomy with urinary diversion procedure and urostomy in the right lower quadrant anterior abdominal wall containing 2 ureteral stents passing through a loop of small bowel. 2. Slight increase in basilar lung consolidation. 3. Slight improvement in dilatation of small bowel since prior study. 4. Stable appearance of a small bowel anastomosis in the right lower quadrant with a fistulous tract containing multiple locules of air extending from the area of anastomosis towards the skin staple line. 5. There is a persistent small ventral hernia containing loop of small bowel. Pool Mendoza MD CT Angiography 11/12/16 0000 Signed Impressions: Service Date/Time: Saturday, November 12, 2016 04:09 - CONCLUSION: 1. No evidence for pulmonary embolism. 2. Abnormal patchy areas of pulmonary consolidation are noted as described above. Small pleural effusions. 3. Emphysema. Timmy Jacobson MD Lower Extremity Ultrasound 11/11/16 0000 Signed Impressions: Service Date/Time: Friday, November 11, 2016 10:03 - CONCLUSION: Negative exam with no evidence of deep venous thrombosis. Orion Aguilera MD Chest X-Ray 11/11/16 0000 Signed Impressions: Service Date/Time: Friday, November 11, 2016 11:46 - CONCLUSION: Minimal bibasilar patchiness consistent with atelectasis and/or mild infiltrates. Clinical correlation is recommended. Renzo Bhandari MD Abdomen X-Ray 11/11/16 0000 Signed Impressions: Service Date/Time: Friday, November 11, 2016 17:02 - CONCLUSION: 1. Air distention of small bowel loops in the left upper abdominal quadrant with decompression of the visualized portions of the colon. Pattern is concerning for possible early small bowel obstruction versus focal hypodynamic ileus. This study will serve as a baseline for followup imaging. 2. Postsurgical changes characteristic of ileal conduit with bilateral double-J stents terminating in the right lower abdominal quadrant. Mando Rodriguez MD Assessment and Plan Problem List: (1) Atrial fibrillation Assessment and Plan: Atrial fib with [id number] score 2. - Continue Cardizem and Amio drips for rate control - Continue Heparin drip (2) Acute exacerbation of chronic obstructive pulmonary disease (COPD) (3) HTN (hypertension) (4) Poor nutrition Sonny Pizano MD Nov 14, 2016 21:00 Sonny Pizano MD Nov 14, 2016 21:00
[2016-11-15] VITALS (31 sets, daily range): BP systolic 124–150; BP diastolic 51–62; PULSE 78–102; RESP 18–20; TEMP 98.3–99; O2SAT 93–99
[2016-11-15] MEDS: ACETAMINOPHEN 1000 MG/100 ML VIAL IV SCH ×4 (00:08→14:19)
[2016-11-15] MEDS: HEPARIN 25,000 UNITS-D5W 250 ML - PREMIX IV SCH ×2 (00:11→22:31)
[2016-11-15] MEDS: DILTIAZEM INJ 125 MG in SODIUM CHLORIDE 0.9% INJ 100 ML IV SCH (01:23)
[2016-11-15] MEDS: AMIODARONE INJ 450 MG in DEXTROSE 5% IN WATE(EXCEL) INJ 241 ML IV SCH ×2 (01:24)
[2016-11-15] MEDS: MUPIROCIN 2% OINT 1 APPLIC/GM SYR EACH NARE SCH ×3 (01:25→22:27)
[2016-11-15] MEDS: POTASSIUM CHLOR 10 MEQ PREMIX 100 ML IV SCH (01:25)
[2016-11-15] MEDS: SODIUM CHLOR 0.9% 1000 ML INJ 1,000 ML IV SCH (03:08)
[2016-11-15] MEDS: RESP: LEVALBUTEROL HYDROCHLORIDE 1.25 MG/3 ML NEB (SCH) NEB ×4 (04:57→20:15)
[2016-11-15 05:28] LABS: HEMATOCRIT 23.2 % (39.0-51.0); MEAN CELL VOLUME 95.2 FL (80.0-100.0); MEAN CORPUSCULAR HEMOGLOBIN 33.2 PG (27.0-34.0); MEAN CORPUSCULAR HGB CONC 34.9 % (32.0-36.0); PLATELET COUNT 378 TH/MM3 (150-450); RED BLOOD COUNT 2.44 MIL/MM3 (4.50-5.90); RED CELL DISTRIBUTION WIDTH 14.4 % (11.6-17.2); REVIEW FLAG FINAL; WHITE BLOOD COUNT 16.8 TH/MM3 (4.0-11.0)
[2016-11-15 05:37] LABS: APTT (PATIENT) 34.5 SEC (24.3-30.1)
[2016-11-15 05:49] LABS: BICARBONATE 35.8 MEQ/L (21.0-32.0); MAGNESIUM 2.3 MG/DL (1.5-2.5)
[2016-11-15] MEDS: INSULIN ASPART SUPPLEMENTAL SCALE SQ SCH ×4 (07:00→22:28)
[2016-11-15] MEDS: HEPARIN SODIUM - IV 10,000 UNITS/10 ML VIAL IV PRN (07:51)
--- NOTE | 2016-11-15 08:23 | PD.CARD.PN ---
Subjective Subjective Remarks Afib rate controlled on Amio and Cardizem IV Hep Objective Medications Current Medications Medications (Trade) Dose Ordered Sig/Julia Route Start Time Stop Time Status Last Admin (Protonix Inj) 40 mg Q24H IV PUSH 11/05/16 14:00 11/14/16 14:00 (Zofran Inj) 4 mg Q6HR PRN IV PUSH 11/05/16 13:00 11/14/16 14:29 (Ofirmev Inj) 1,000 mg Q6H IV 11/05/16 14:00 11/15/16 02:00 (Lipitor) 40 mg HS PO 11/05/16 21:00 Hold 11/08/16 20:07 (ZyrTEC) 10 mg DAILY PO 11/06/16 09:00 Hold 11/09/16 09:22 (Cozaar) 100 mg DAILY PO 11/05/16 17:00 Hold 11/09/16 09:22 (Symbicort 160-4.5 Inh) 1 puff BID INH 11/05/16 14:00 11/14/16 21:00 Patient Own Medication PT OWN MED: SPIR... DAILY INH 11/05/16 14:00 11/14/16 09:00 (Morphine Inj) 4 mg Q3H PRN IV PUSH 11/07/16 13:30 11/14/16 00:08 (Tums Chew) 1,000 mg Q6H PRN CHEW 11/09/16 03:00 11/14/16 03:59 (Phenergan Inj) 10 mg Q6H PRN IM 11/09/16 03:45 Hold 11/09/16 03:48 Enalaprilat 1.25 mg 1.25 mg Q6H PRN IV PUSH 11/10/16 09:00 11/10/16 09:29 Levofloxacin/ Dextrose 150 ml @ 100 mls/hr Q24H IV 11/11/16 18:00 11/14/16 18:00 Diltiazem HCl 125 mg/Sodium Chloride 125 ml @ 0 mls/hr TITRATE IV 11/11/16 19:00 11/15/16 01:23 (Cordarone Inj/ D5W ([place]) Inj) 250 ml @ 0 mls/hr CONTINUOUS IV 11/12/16 05:15 11/15/16 01:24 Furosemide 40 mg 40 mg BID@,18 IV PUSH 11/12/16 18:00 11/14/16 18:00 (Heparin-D5W Inj) 250 ml @ 0 mls/hr TITRATE IV 11/12/16 15:15 11/15/16 00:11 (Heparin Inj) 5,000 units UNSCH PRN IV 11/12/16 15:15 (Heparin Inj) 2,500 units UNSCH PRN IV 11/12/16 15:15 11/15/16 07:51 (D50w (Vial) Inj) 25 ml UNSCH PRN IV PUSH 11/13/16 20:30 (Glucagon Inj) 1 mg UNSCH PRN OTHER 11/13/16 20:30 (NS Flush) DAILY IVF 11/15/16 09:00 (NS Flush) UNSCH PRN IVF 11/14/16 16:45 Mupirocin 1 applic 1 applic BID EACH NARE 11/14/16 21:00 11/21/16 20:59 11/15/16 01:25 Multivitamins 10 ml/Folic Acid 1 mg/Amino Acids/ Electrolytes/ Dextrose 2,010.2 ml @ 75 mls/hr Q24H IV-CENTRAL 11/14/16 20:00 11/14/16 20:00 (Liposyn Iii 20% Inj) 250 ml @ 31.25 mls/ hr SuWe@20 IV-CENTRAL 11/16/16 20:00 Vital Signs / I&O Vital Signs Date Time Temp Pulse Resp B/P Pulse Ox O2 Delivery O2 Flow Rate FiO2 11/15/16 07:57 94 Nasal Cannula 4.00 11/15/16 06:00 85 11/15/16 05:07 98.9 90 18 129/52 99 11/15/16 05:00 83 11/15/16 04:00 92 11/15/16 03:25 Nasal Cannula 4.00 35 11/15/16 03:00 92 11/15/16 02:00 88 11/15/16 01:00 102 11/15/16 00:45 99.0 102 18 129/62 93 11/15/16 00:37 Nasal Cannula 4.00 35 11/15/16 00:00 94 11/14/16 23:00 102 11/14/16 22:59 98 35 11/14/16 22:48 93 Nasal Cannula 4.00 11/14/16 22:00 106 11/14/16 21:10 Nasal Cannula 4.00 35 11/14/16 21:09 99.0 104 18 132/65 94 11/14/16 21:00 96 11/14/16 20:00 106 11/14/16 19:00 108 11/14/16 18:46 98.7 99 18 147/54 98 11/14/16 18:39 98.7 99 18 153/58 98 11/14/16 18:35 93 11/14/16 17:28 100 11/14/16 17:05 96 Nasal Cannula 4.00 11/14/16 16:30 106 11/14/16 15:18 91 11/14/16 15:14 86 11/14/16 15:14 Nasal Cannula 4.00 35 11/14/16 15:14 98.0 101 18 121/51 93 11/14/16 15:08 18 11/14/16 14:25 89 11/14/16 13:50 89 11/14/16 12:07 90 11/14/16 11:56 97.8 103 20 124/57 95 11/14/16 11:56 96 11/14/16 11:56 Nasal Cannula 4.00 35 11/14/16 10:29 97 Nasal Cannula 4.00 11/14/16 10:22 92 11/14/16 09:56 98 I/O 11/14/16 11/14/16 11/14/16 11/15/16 11/15/16 11/15/16 07:00 15:00 23:00 07:00 15:00 23:00 Intake Total 1860 ml 240 ml 2104 ml Output Total 1800 ml 1300 ml 2300 ml Balance 60 ml -1060 ml -196 ml Intake Oral 420 ml 240 ml 320 ml IV Total 1440 ml 1784 ml Output Urine Total 1800 ml 1300 ml 1500 ml Stool Total 100 ml Gastric Drainage Total 700 ml Physical Exam GENERAL: Well-nourished, well-developed patient. SKIN: Warm and dry. HEAD: Normocephalic. EYES: No scleral icterus. No injection or drainage. NECK: Supple, trachea midline. No JVD or lymphadenopathy. CARDIOVASCULAR: Irr Irr without murmurs, gallops, or rubs. RESPIRATORY: Breath sounds equal bilaterally. No accessory muscle use. GASTROINTESTINAL: Abdomen soft, tender, nondistended. EXTREMITIES: No cyanosis, or edema. NEUROLOGICAL: Awake, alert, and oriented x 3. Non-focal. Laboratory Laboratory Tests Test 11/15/16 05:00 White Blood Count 16.8 TH/MM3 Red Blood Count 2.44 MIL/MM3 Hemoglobin 8.1 GM/DL Hematocrit 23.2 % Mean Corpuscular Volume 95.2 FL Mean Corpuscular Hemoglobin 33.2 PG Mean Corpuscular Hemoglobin 34.9 % Concent Red Cell Distribution Width 14.4 % Platelet Count 378 TH/MM3 Mean Platelet Volume 7.2 FL Activated Partial 34.5 SEC Thromboplast Time Sodium Level 139 MEQ/L Potassium Level 3.0 MEQ/L Chloride Level 98 MEQ/L Carbon Dioxide Level 35.8 MEQ/L Anion Gap 5 MEQ/L Blood Urea Nitrogen 19 MG/DL Creatinine 0.85 MG/DL Estimat Glomerular Filtration 89 ML/MIN Rate Random Glucose 236 MG/DL Calcium Level 7.9 MG/DL Magnesium Level 2.3 MG/DL Assessment and Plan Problem List: (1) Atrial fibrillation Assessment and Plan: Better controlled this AM D/C Amio Cont Dilt drip Cont IV heparin (2) Acute exacerbation of chronic obstructive pulmonary disease (COPD) (3) HTN (hypertension) (4) Poor nutrition Problem Qualifiers (1) Atrial fibrillation: Qualified Code: I48.1 - Persistent atrial fibrillation Sonny Pizano MD Nov 15, 2016 08:23
[2016-11-15] MEDS: FUROSEMIDE 40 MG/4 ML VIAL IV PUSH SCH ×2 (08:26→17:18)
[2016-11-15] MEDS: SODIUM CHLORIDE 0.9% FLUSH 5 ML FLUSH IVF SCH (08:27)
[2016-11-15] MEDS: BUDESONIDE-FORMOTEROL 160/4.5 MCG INHALER INH SCH ×2 (08:28→22:34)
[2016-11-15] MEDS: SPIRIVA RESPIMAT INH SCH (08:28)
[2016-11-15] MEDS: CALCIUM CARBONATE 500 MG CHEWABLE TAB CHEW PRN (08:55)
--- NOTE | 2016-11-15 09:17 | HHI.PR ---
Subjective Remarks c/o crampy, abdominal pain. Denies flatus, N/V/F/C. Also c/o aches and pains all over. OOB yesterday for about 15 minutes. Breathing improved. TPN started overnight. On Cardizem, Amiodarone, Heparin gtt. Objective Vital Signs Vital Signs Date Time Temp Pulse Resp B/P Pulse Ox O2 Delivery O2 Flow Rate FiO2 11/15/16 07:57 94 Nasal Cannula 4.00 11/15/16 06:00 85 11/15/16 05:07 98.9 90 18 129/52 99 11/15/16 05:00 83 11/15/16 04:00 92 11/15/16 03:25 Nasal Cannula 4.00 35 11/15/16 03:00 92 11/15/16 02:00 88 11/15/16 01:00 102 11/15/16 00:45 99.0 102 18 129/62 93 11/15/16 00:37 Nasal Cannula 4.00 35 11/15/16 00:00 94 11/14/16 23:00 102 11/14/16 22:59 98 35 11/14/16 22:48 93 Nasal Cannula 4.00 11/14/16 22:00 106 11/14/16 21:10 Nasal Cannula 4.00 35 11/14/16 21:09 99.0 104 18 132/65 94 11/14/16 21:00 96 11/14/16 20:00 106 11/14/16 19:00 108 11/14/16 18:46 98.7 99 18 147/54 98 11/14/16 18:39 98.7 99 18 153/58 98 11/14/16 18:35 93 11/14/16 17:28 100 11/14/16 17:05 96 Nasal Cannula 4.00 11/14/16 16:30 106 11/14/16 15:18 91 11/14/16 15:14 86 11/14/16 15:14 Nasal Cannula 4.00 35 11/14/16 15:14 98.0 101 18 121/51 93 11/14/16 15:08 18 11/14/16 14:25 89 11/14/16 13:50 89 11/14/16 12:07 90 11/14/16 11:56 97.8 103 20 124/57 95 11/14/16 11:56 96 11/14/16 11:56 Nasal Cannula 4.00 35 11/14/16 10:29 97 Nasal Cannula 4.00 11/14/16 10:22 92 11/14/16 09:56 98 I/O 11/14/16 11/14/16 11/14/16 11/15/16 11/15/16 11/15/16 07:00 15:00 23:00 07:00 15:00 23:00 Intake Total 1860 ml 240 ml 2104 ml Output Total 1800 ml 1300 ml 2300 ml Balance 60 ml -1060 ml -196 ml Intake Oral 420 ml 240 ml 320 ml IV Total 1440 ml 1784 ml Output Urine Total 1800 ml 1300 ml 1500 ml Stool Total 100 ml Gastric Drainage Total 700 ml Result Diagram: 11/15/16 0500 11/15/16 0500 Objective Remarks NAD. A/O x 3 labored breathing but improved. irregular. abd soft, mildly distended, NT, no peritoneal signs. midline incision draining greenish stool into ostomy. Stoma slightly pink, but dark. Scrotum less edematous, soft Ext NT. No c/c/e Procedures Radical Cystoprostatectomy, Pelvic LN dissection, Ileal Conduit 11/05/2016 Assessment and Plan Assessment and Plan s/p Radical Cystoprostatectomy, Ileal Conduit with post operative ileus, A- flutter with RVR, enterocutaneous fistula -Keep NPO, NGT until bowel function returns. NG output slowly decreasing. Renew TPN. -WBC down. Continue Levaquin 750 mg daily. -Good UOP. -Hgb stable. -PT/OT -Cardizem, Amiodarone, Heparin gtt per Cardiology -Appreciate all service input Duncan Huff MD Nov 15, 2016 09:17
[2016-11-15] MEDS ORDERED: BENZOCAINE-MENTHOL (SUGAR FREE) 15 MG-3.6 MG LOZENGE BUCCAL PRN (09:45)
[2016-11-15] MEDS: POTASSIUM CHLOR 20 MEQ PREMIX 100 ML IV SCH ×2 (11:06→12:00)
--- NOTE | 2016-11-15 13:46 | RADRPT ---
EXAM DATE/TIME: 11/14/2016 16:07 [facility] COMPARISON: No previous studies available for comparison. INDICATIONS : Patient with a history of ileo conduit, needs good IV access. MEDICAL HISTORY : Cardiac disorders SURGICAL HISTORY : Radical cystoprostatectomy Illeal Conduit with post operative ileus ENCOUNTER: Initial ACUITY: 1 day PAIN SCORE: 3/10 LOCATION: abdomen FLUORO TIME: 0.3 minutes ACCESS: Right internal jugular vein DEVICE(S): 1.) 7 [place] 15 cm ABX coated catheter PROCEDURE : 1. Ultrasound guided venipuncture. 2. Fluoroscopic guidance. 3. Central line placement. The risks, benefits and alternatives to the procedure were explained and verbal and written consent w as obtained. The site was prepped in sterile fashion. Full sterile technique was used, including ca p, mask, sterile gloves and gown and a large sterile sheet. Hand hygiene and 2% chlorhexidine prep w as utilized per protocol for cutaneous antisepsis with appropriate dry time for site. The skin and subcutaneous tissues were infiltrated with local anesthetic solution. A suitable site a elidia the vein was selected with ultrasound and fluoroscopic guidance. A small incision was made. Th e vein was accessed under direct ultrasound visualization using the micropuncture technique. The yumiko ropuncture set was exchanged for a 0.035 wire. The tract was dilated. The catheter was advanced int o position under direct fluoroscopic visualization. The catheter was fixed in place with suture and a sterile dressing was applied. The patient tolerated the procedure well and there were no complications. CONCLUSION: Uncomplicated line placement as above. Mando Rodriguez MD on November 15, 2016 at 13:44 Board Certified Radiologist. This report was verified electronically.
[2016-11-15] MEDS: PANTOPRAZOLE SODIUM 40 MG VIAL IV PUSH SCH (14:20)
[2016-11-15] MEDS: ONDANSETRON HCL 4 MG/2 ML VIAL IV PUSH PRN (14:20)
--- NOTE | 2016-11-15 14:24 | HHI.PR ---
Subjective Remarks Follow-up COPD. Denies shortness of breath. Still in A. fib with controlled ventricular response cardiology has discontinued amiodarone. Discussed with RN Objective Vitals Vital Signs Date Time Temp Pulse Resp B/P Pulse Ox O2 Delivery O2 Flow Rate FiO2 11/15/16 12:02 89 11/15/16 11:11 87 11/15/16 11:11 98.3 81 20 124/55 95 11/15/16 11:11 Nasal Cannula 4.00 35 11/15/16 10:39 91 11/15/16 09:45 18 11/15/16 09:00 82 11/15/16 08:00 84 11/15/16 07:57 94 Nasal Cannula 4.00 11/15/16 07:30 98.9 98 18 148/60 95 11/15/16 07:30 84 11/15/16 07:30 Nasal Cannula 4.00 35 11/15/16 06:00 85 11/15/16 05:07 98.9 90 18 129/52 99 11/15/16 05:00 83 11/15/16 04:00 92 11/15/16 03:25 Nasal Cannula 4.00 35 11/15/16 03:00 92 11/15/16 02:00 88 11/15/16 01:00 102 11/15/16 00:45 99.0 102 18 129/62 93 11/15/16 00:37 Nasal Cannula 4.00 35 11/15/16 00:00 94 11/14/16 23:00 102 11/14/16 22:59 98 35 11/14/16 22:48 93 Nasal Cannula 4.00 11/14/16 22:00 106 11/14/16 21:10 Nasal Cannula 4.00 35 11/14/16 21:09 99.0 104 18 132/65 94 11/14/16 21:00 96 11/14/16 20:00 106 11/14/16 19:00 108 11/14/16 18:46 98.7 99 18 147/54 98 11/14/16 18:39 98.7 99 18 153/58 98 11/14/16 18:35 93 11/14/16 17:28 100 11/14/16 17:05 96 Nasal Cannula 4.00 11/14/16 16:30 106 2/10/17 15:18 91 11/14/16 15:14 86 11/14/16 15:14 Nasal Cannula 4.00 35 11/14/16 15:14 98.0 101 18 121/51 93 11/14/16 14:25 89 I/O 11/14/16 11/14/16 11/14/16 11/15/16 11/15/16 11/15/16 07:00 15:00 23:00 07:00 15:00 23:00 Intake Total 1860 ml 240 ml 2104 ml Output Total 1800 ml 1300 ml 2300 ml Balance 60 ml -1060 ml -196 ml Intake Oral 420 ml 240 ml 320 ml IV Total 1440 ml 1784 ml Output Urine Total 1800 ml 1300 ml 1500 ml Stool Total 100 ml Gastric Drainage Total 700 ml Result Diagram: 11/15/16 0500 11/15/16 0500 Imaging Last Impressions Abdomen/Pelvis CT 11/14/16 0600 Signed Impressions: Service Date/Time: Monday, November 14, 2016 13:13 - CONCLUSION: 1. Postoperative cystectomy with urinary diversion procedure and urostomy in the right lower quadrant anterior abdominal wall containing 2 ureteral stents passing through a loop of small bowel. 2. Slight increase in basilar lung consolidation. 3. Slight improvement in dilatation of small bowel since prior study. 4. Stable appearance of a small bowel anastomosis in the right lower quadrant with a fistulous tract containing multiple locules of air extending from the area of anastomosis towards the skin staple line. 5. There is a persistent small ventral hernia containing loop of small bowel. Pool Mendoza MD Central Venous Line 11/14/16 0000 Signed Impressions: Service Date/Time: Monday, November 14, 2016 16:07 - CONCLUSION: Uncomplicated line placement as above. Mando Rodriguez MD CT Angiography 11/12/16 0000 Signed Impressions: Service Date/Time: Saturday, November 12, 2016 04:09 - CONCLUSION: 1. No evidence for pulmonary embolism. 2. Abnormal patchy areas of pulmonary consolidation are noted as described above. Small pleural effusions. 3. Emphysema. Timmy Jacobson MD Lower Extremity Ultrasound 11/11/16 0000 Signed Impressions: Service Date/Time: Friday, November 11, 2016 10:03 - CONCLUSION: Negative exam with no evidence of deep venous thrombosis. Orion Aguilera MD Chest X-Ray 11/11/16 0000 Signed Impressions: Service Date/Time: Friday, November 11, 2016 11:46 - CONCLUSION: Minimal bibasilar patchiness consistent with atelectasis and/or mild infiltrates. Clinical correlation is recommended. Renzo Bhandari MD Abdomen X-Ray 11/11/16 0000 Signed Impressions: Service Date/Time: Friday, November 11, 2016 17:02 - CONCLUSION: 1. Air distention of small bowel loops in the left upper abdominal quadrant with decompression of the visualized portions of the colon. Pattern is concerning for possible early small bowel obstruction versus focal hypodynamic ileus. This study will serve as a baseline for followup imaging. 2. Postsurgical changes characteristic of ileal conduit with bilateral double-J stents terminating in the right lower abdominal quadrant. Mando Rodriguez MD Objective Remarks GENERAL: Alert, oriented x 3, NAD. On nasal cannula. SKIN: Warm and dry. HEAD: Normocephalic. EYES: No scleral icterus. No injection or drainage. NECK: Supple, trachea midline. No JVD or lymphadenopathy. CARDIOVASCULAR: Irregularly irregular RESPIRATORY: Breath sounds equal bilaterally. No accessory muscle use. GASTROINTESTINAL: Abdomen soft with ileal conduit and ostomy bag MUSCULOSKELETAL: No cyanosis, or edema. BACK: Nontender without obvious deformity. No CVA tenderness. Procedures 11/05/2016 Symptomatic large supraumbilical hernia. Bladder cancer requiring radical cystectomy. 11/08/2016 1. Radical cystoprostatectomy with ileal conduit. 2. Bilateral pelvic lymph node dissection. Right IJ central line A/P Problem List: (1) Acute exacerbation of chronic obstructive pulmonary disease (COPD) ICD Code: J44.1 Status: Acute (2) Bladder cancer ICD Code: C67.9 Status: Acute (3) HTN (hypertension) ICD Code: I10 Status: Acute (4) Atrial flutter ICD Code: I48.92 Status: Acute Assessment and Plan Mr. Edwards is a pleasant 70-year-old male with a history of bladder cancer, COPD, hypertension who underwent radical cystoprostatectomy, umbilical hernia repair during this admission. Hospitalist service was consulted for COPD exacerbation as well as general medical management. He developed atrial flutter with RVR. Patient was transferred to [facility]. - Bladder cancer - status post radical cystoscopy prostatectomy. Management per urology. - Acute exacerbation of COPD - Patient is requiring 4 L of oxygen. Tolerating BiPAP well. Continue PRN BiPAP and BiPAP at night. - Continue levofloxacin 750 mg intravenously until SBO resolves stop date November 18. - Breathing treatment with Xopenex every 4 hours while awake - ileus vs Partial small bowel obstruction - Continue NG suction. Continue gentle hydration. - Developed enterocutaneous fistula. Bowel rest, NG and TPN. - Atrial flutter with RVR - [id number] score 2 (Age, Hx of HTN). - Continue Cardizem drip. We can start PO Cardizem as well when diet started. - Cardiology evaluated patient - currently patient is on Cardizem status post Amiodarone drip. - Continue Heparin drip started by cardiology. Future anticoagulation with one of the newer anticoagulants would be an option such as Apixaban. - Hypertension - currently well controlled without any medication. Patient apparently takes Micardis at home. - We'll continue to monitor. If indicated will restart patient's home medication. Hypokalemia. Replace. Repeat BMP and magnesium in the morning Full code. Heparin Drip. Navi Monreal MD Nov 15, 2016 14:24
[2016-11-15] MEDS: LEVOFLOXACIN 750 MG PREMIX INJ 150 ML IV SCH (17:18)
[2016-11-15 21:07] LABS: MEAN CORPUSCULAR HGB CONC 29.5 % (32.0-36.0)
[2016-11-15] MEDS: MORPHINE SULFATE 4 MG/ML INJ IV PUSH PRN (22:27)
[2016-11-15] MEDS: CLINIMIX E 5/25 2000 mL- >42 mls/hr IV-CENTRAL SCH ×3 (22:33)
[2016-11-15 22:40] LABS: APTT (PATIENT) 34.1 SEC (24.3-30.1)
[2016-11-16] VITALS (30 sets, daily range): BP systolic 129–159; BP diastolic 52–64; PULSE 76–106; RESP 18; TEMP 97.6–99.7; O2SAT 94–98
[2016-11-16] MEDS: HEPARIN SODIUM - IV 10,000 UNITS/10 ML VIAL IV PRN ×2 (01:52→13:06)
[2016-11-16] MEDS: ACETAMINOPHEN 1000 MG/100 ML VIAL IV SCH (01:55)
[2016-11-16] MEDS: RESP: LEVALBUTEROL HYDROCHLORIDE 1.25 MG/3 ML NEB (SCH) NEB ×4 (04:34→21:24)
[2016-11-16 04:53] LABS: AUTOMATED NEUTROPHIL # 11.3 TH/MM3 (1.8-7.7); BASOPHIL % 0.2 % (0.0-2.0); EOSINOPHIL # 0.1 TH/MM3 (0-0.4); EOSINOPHIL % 0.8 % (0.0-4.0); HEMATOCRIT 25.3 % (39.0-51.0); LYMPHOCYTE # 0.8 TH/MM3 (1.0-4.8); MEAN CELL VOLUME 113.8 FL (80.0-100.0); MEAN CORPUSCULAR HEMOGLOBIN 33.6 PG (27.0-34.0); MONO % 9.7 % (0.0-8.0); NEUT % 83.3 % (16.0-70.0); PLATELET COUNT 301 TH/MM3 (150-450); RED BLOOD COUNT 2.22 MIL/MM3 (4.50-5.90); RED CELL DISTRIBUTION WIDTH 16.3 % (11.6-17.2); WHITE BLOOD COUNT 13.5 TH/MM3 (4.0-11.0)
[2016-11-16 04:55] LABS: HEMO FLAGS AUTO DIFF
[2016-11-16 05:04] LABS: APTT (PATIENT) 52.7 SEC (24.3-30.1)
[2016-11-16] MEDS: DILTIAZEM INJ 125 MG in SODIUM CHLORIDE 0.9% INJ 100 ML IV SCH ×2 (05:57→23:40)
[2016-11-16 06:18] LABS: BANDS 13 % (0-6); EOSINOPHILS 1 % (0-4); METAMYELOCYTES 1 % (0-1); MYELOCYTES 6 % (0-0); NEUTROPHIL # MANUAL DIFF 11.7 TH/MM3 (1.8-7.7); POLYS (SEG NEUTROPHILS) 67 % (16-70); WBC DIFF SAMPLE 100
[2016-11-16 06:19] LABS: PLATELET ESTIMATE SMEAR NORMAL (NORMAL); PLATELET MORPHOLOGY NORMAL (NORMAL); SCAN/DIFF FINAL DIFF MANUAL
[2016-11-16 06:41] LABS: MAGNESIUM 2.3 MG/DL (1.5-2.5); POTASSIUM 3.3 MEQ/L (3.5-5.1)
[2016-11-16] MEDS: INSULIN ASPART SUPPLEMENTAL SCALE SQ SCH ×4 (07:00→23:46)
[2016-11-16] MEDS ORDERED: ACETAMINOPHEN 325 MG SUPP RECTAL PRN (08:30)
[2016-11-16] MEDS ORDERED: INSULIN HUMAN NPH 1,000 UNITS/10 ML VIAL SQ ONE (08:45)
--- NOTE | 2016-11-16 08:57 | PD.CARD.PN ---
Subjective Subjective Remarks Afib rate controlled on Cardizem gtt IV Hep Objective Medications Current Medications Medications (Trade) Dose Ordered Sig/Julia Route Start Time Stop Time Status Last Admin (Protonix Inj) 40 mg Q24H IV PUSH 11/05/16 14:00 11/15/16 14:20 (Zofran Inj) 4 mg Q6HR PRN IV PUSH 11/05/16 13:00 11/15/16 14:20 (Lipitor) 40 mg HS PO 11/05/16 21:00 Hold 11/08/16 20:07 (ZyrTEC) 10 mg DAILY PO 11/06/16 09:00 Hold 11/09/16 09:22 (Cozaar) 100 mg DAILY PO 11/05/16 17:00 Hold 11/09/16 09:22 (Symbicort 160-4.5 Inh) 1 puff BID INH 11/05/16 14:00 11/15/16 22:34 Patient Own Medication PT OWN MED: SPIR... DAILY INH 11/05/16 14:00 11/14/16 09:00 (Morphine Inj) 4 mg Q3H PRN IV PUSH 11/07/16 13:30 11/15/16 22:27 (Tums Chew) 1,000 mg Q6H PRN CHEW 11/09/16 03:00 11/15/16 08:55 (Phenergan Inj) 10 mg Q6H PRN IM 11/09/16 03:45 Hold 11/09/16 03:48 Enalaprilat 1.25 mg 1.25 mg Q6H PRN IV PUSH 11/10/16 09:00 11/10/16 09:29 Levofloxacin/ Dextrose 150 ml @ 100 mls/hr Q24H IV 11/11/16 18:00 11/15/16 17:18 (Cardizem Inj/NS Inj) 125 ml @ 0 mls/hr TITRATE IV 11/11/16 19:00 11/16/16 05:57 Furosemide 40 mg 40 mg BID@,18 IV PUSH 11/12/16 18:00 11/15/16 17:18 (Heparin-D5W Inj) 250 ml @ 0 mls/hr TITRATE IV 11/12/16 15:15 11/15/16 22:31 (Heparin Inj) 5,000 units UNSCH PRN IV 11/12/16 15:15 (Heparin Inj) 2,500 units UNSCH PRN IV 11/12/16 15:15 11/16/16 01:52 (D50w (Vial) Inj) 25 ml UNSCH PRN IV PUSH 11/13/16 20:30 (Glucagon Inj) 1 mg UNSCH PRN OTHER 11/13/16 20:30 (NS Flush) DAILY IVF 11/15/16 09:00 11/15/16 08:27 (NS Flush) UNSCH PRN IVF 11/14/16 16:45 Mupirocin 1 applic 1 applic BID EACH NARE 11/14/16 21:00 11/21/16 20:59 11/15/16 22:27 Multivitamins 10 ml/Folic Acid 1 mg/Amino Acids/ Electrolytes/ Dextrose 2,010.2 ml @ 75 mls/hr Q24H IV-CENTRAL 11/14/16 20:00 11/15/16 22:33 (Liposyn Iii 20% Inj) 250 ml @ 31.25 mls/ hr SuWe@20 IV-CENTRAL 11/16/16 20:00 Benzocaine/ Menthol 1 lozenge 1 lozenge Q2H PRN BUCCAL 11/15/16 09:45 (KCl 10 Meq Premix Inj) 100 ml @ 100 mls/hr Q1H IV 11/16/16 08:45 11/16/16 11:44 (Tylenol Supp) 325 mg Q4H PRN RECTAL 11/16/16 08:30 Vital Signs / I&O Vital Signs Date Time Temp Pulse Resp B/P Pulse Ox O2 Delivery O2 Flow Rate FiO2 11/16/16 05:53 87 11/16/16 04:00 85 11/16/16 03:36 98.0 88 18 139/53 97 11/16/16 03:26 Nasal Cannula 4.00 35 11/16/16 03:00 76 11/16/16 02:00 78 11/16/16 01:20 98.4 89 18 129/55 94 11/16/16 01:18 Nasal Cannula 4.00 35 11/16/16 01:00 76 11/16/16 00:00 82 11/15/16 23:22 96 35 11/15/16 23:00 80 11/15/16 22:00 88 11/15/16 21:00 84 11/15/16 20:15 95 Nasal Cannula 4.00 11/15/16 20:13 98.4 90 18 150/51 93 11/15/16 20:06 Nasal Cannula 4.00 35 11/15/16 20:00 86 11/15/16 19:00 94 11/15/16 18:15 78 11/15/16 17:02 89 11/15/16 16:12 99 Nasal Cannula 4.00 11/15/16 16:00 82 11/15/16 15:56 86 11/15/16 15:56 Nasal Cannula 4.00 35 11/15/16 15:56 98.3 89 20 126/54 98 11/15/16 15:55 20 11/15/16 14:55 82 11/15/16 13:00 89 11/15/16 12:02 89 11/15/16 11:11 87 11/15/16 11:11 98.3 81 20 124/55 95 11/15/16 11:11 Nasal Cannula 4.00 35 11/15/16 10:39 91 11/15/16 09:00 82 I/O 11/15/16 11/15/16 11/15/16 11/16/16 11/16/16 11/16/16 07:00 15:00 23:00 07:00 15:00 23:00 Intake Total 2104 ml 1299 ml 1324 ml Output Total 2300 ml 2150 ml 2075 ml Balance -196 ml -851 ml -751 ml Intake Oral 320 ml 480 ml IV Total 1784 ml 330 ml TPN/PPN 1299 ml 514 ml Output Urine Total 1500 ml 1650 ml Stool Total 100 ml 300 ml 125 ml Gastric Drainage Total 700 ml 450 ml 300 ml Drainage Total 1400 ml Physical Exam GENERAL: Well-nourished, well-developed patient. SKIN: Warm and dry. HEAD: Normocephalic. EYES: No scleral icterus. No injection or drainage. NECK: Supple, trachea midline. No JVD or lymphadenopathy. CARDIOVASCULAR: Irr Irr without murmurs, gallops, or rubs. RESPIRATORY: Breath sounds equal bilaterally. No accessory muscle use. GASTROINTESTINAL: Abdomen soft, tender, nondistended. EXTREMITIES: No cyanosis, or edema. NEUROLOGICAL: Awake, alert, and oriented x 3. Non-focal. Laboratory Laboratory Tests Test 11/15/16 11/16/16 11/16/16 21:25 04:30 05:54 Activated Partial 34.1 SEC 52.7 SEC Thromboplast Time White Blood Count 13.5 TH/MM3 Red Blood Count 2.22 MIL/MM3 Hemoglobin 7.5 GM/DL Hematocrit 25.3 % Mean Corpuscular Volume 113.8 FL Mean Corpuscular Hemoglobin 33.6 PG Mean Corpuscular Hemoglobin 29.5 % Concent Red Cell Distribution Width 16.3 % Platelet Count 301 TH/MM3 Mean Platelet Volume 7.2 FL Neutrophils (%) (Auto) 83.3 % Lymphocytes (%) (Auto) 6.0 % Monocytes (%) (Auto) 9.7 % Eosinophils (%) (Auto) 0.8 % Basophils (%) (Auto) 0.2 % Neutrophils # (Auto) 11.3 TH/MM3 Lymphocytes # (Auto) 0.8 TH/MM3 Monocytes # (Auto) 1.3 TH/MM3 Eosinophils # (Auto) 0.1 TH/MM3 Basophils # (Auto) 0.0 TH/MM3 CBC Comment AUTO DIFF Differential Total Cells 100 Counted Neutrophils % (Manual) 67 % Band Neutrophils % 13 % Lymphocytes % 9 % Monocytes % 3 % Eosinophils % 1 % Neutrophils # (Manual) 11.7 TH/MM3 Metamyelocytes 1 % Myelocytes 6 % Differential Comment FINAL DIFF MANUAL Platelet Estimate NORMAL Platelet Morphology Comment NORMAL Sodium Level 139 MEQ/L Potassium Level 3.3 MEQ/L Chloride Level 94 MEQ/L Carbon Dioxide Level 36.0 MEQ/L Anion Gap 9 MEQ/L Blood Urea Nitrogen 19 MG/DL Creatinine 0.78 MG/DL Estimat Glomerular Filtration 98 ML/MIN Rate Random Glucose 263 MG/DL Calcium Level 7.9 MG/DL Magnesium Level 2.3 MG/DL Assessment and Plan Problem List: (1) Atrial fibrillation Assessment and Plan: Cont rate control with Cardizem Start PO cardizem and OAC when tolerating PO Cont IV heparin Sign Off (2) Acute exacerbation of chronic obstructive pulmonary disease (COPD) (3) HTN (hypertension) (4) Poor nutrition Problem Qualifiers (1) Atrial fibrillation: Qualified Code: I48.1 - Persistent atrial fibrillation Sonny Pizano MD Nov 16, 2016 08:57
[2016-11-16] MEDS: SPIRIVA RESPIMAT INH SCH (09:00)
[2016-11-16] MEDS: SODIUM CHLORIDE 0.9% FLUSH 5 ML FLUSH IVF SCH (09:00)
[2016-11-16] MEDS: MUPIROCIN 2% OINT 1 APPLIC/GM SYR EACH NARE SCH ×2 (09:37→21:00)
[2016-11-16] MEDS: POTASSIUM CHLOR 10 MEQ PREMIX 100 ML IV SCH ×3 (09:37→12:37)
[2016-11-16] MEDS: FUROSEMIDE 40 MG/4 ML VIAL IV PUSH SCH ×2 (09:38→17:21)
[2016-11-16] MEDS: BUDESONIDE-FORMOTEROL 160/4.5 MCG INHALER INH SCH ×2 (09:38→23:42)
--- NOTE | 2016-11-16 13:18 | HHI.PR ---
Subjective Remarks Follow-up COPD. Denies chest pain, shortness of breath, weakness and dizziness. Aware of low hemoglobin status post negative colonoscopy 3 years ago. Discussed with RN and pharmacy, TPN adjusted Objective Vitals Vital Signs Date Time Temp Pulse Resp B/P Pulse Ox O2 Delivery O2 Flow Rate FiO2 11/16/16 09:51 98.0 84 18 159/59 95 11/16/16 09:20 94 Nasal Cannula 3.00 11/16/16 05:53 87 11/16/16 04:00 85 11/16/16 03:36 98.0 88 18 139/53 97 11/16/16 03:26 Nasal Cannula 4.00 35 11/16/16 03:00 76 11/16/16 02:00 78 11/16/16 01:20 98.4 89 18 129/55 94 11/16/16 01:18 Nasal Cannula 4.00 35 11/16/16 01:00 76 11/16/16 00:00 82 11/15/16 23:22 96 35 11/15/16 23:00 80 11/15/16 22:00 88 11/15/16 21:00 84 11/15/16 20:15 95 Nasal Cannula 4.00 11/15/16 20:13 98.4 90 18 150/51 93 11/15/16 20:06 Nasal Cannula 4.00 35 11/15/16 20:00 86 11/15/16 19:00 94 11/15/16 18:15 78 11/15/16 17:02 89 11/15/16 16:12 99 Nasal Cannula 4.00 11/15/16 16:00 82 11/15/16 15:56 86 11/15/16 15:56 Nasal Cannula 4.00 35 11/15/16 15:56 98.3 89 20 126/54 98 11/15/16 15:55 20 11/15/16 14:55 82 I/O 11/15/16 11/15/16 11/15/16 11/16/16 11/16/16 11/16/16 07:00 15:00 23:00 07:00 15:00 23:00 Intake Total 2104 ml 1299 ml 1324 ml Output Total 2300 ml 2150 ml 2075 ml Balance -196 ml -851 ml -751 ml Intake Oral 320 ml 480 ml IV Total 1784 ml 330 ml TPN/PPN 1299 ml 514 ml Output Urine Total 1500 ml 1650 ml Stool Total 100 ml 300 ml 125 ml Gastric Drainage Total 700 ml 450 ml 300 ml Drainage Total 1400 ml Result Diagram: 11/16/16 0430 11/16/16 0554 Imaging Last Impressions Abdomen/Pelvis CT 11/14/16 0600 Signed Impressions: Service Date/Time: Monday, November 14, 2016 13:13 - CONCLUSION: 1. Postoperative cystectomy with urinary diversion procedure and urostomy in the right lower quadrant anterior abdominal wall containing 2 ureteral stents passing through a loop of small bowel. 2. Slight increase in basilar lung consolidation. 3. Slight improvement in dilatation of small bowel since prior study. 4. Stable appearance of a small bowel anastomosis in the right lower quadrant with a fistulous tract containing multiple locules of air extending from the area of anastomosis towards the skin staple line. 5. There is a persistent small ventral hernia containing loop of small bowel. Pool Mendoza MD Central Venous Line 11/14/16 0000 Signed Impressions: Service Date/Time: Monday, November 14, 2016 16:07 - CONCLUSION: Uncomplicated line placement as above. Mando Rodriguez MD CT Angiography 11/12/16 0000 Signed Impressions: Service Date/Time: Saturday, November 12, 2016 04:09 - CONCLUSION: 1. No evidence for pulmonary embolism. 2. Abnormal patchy areas of pulmonary consolidation are noted as described above. Small pleural effusions. 3. Emphysema. Timmy Jacobson MD Lower Extremity Ultrasound 11/11/16 0000 Signed Impressions: Service Date/Time: Friday, November 11, 2016 10:03 - CONCLUSION: Negative exam with no evidence of deep venous thrombosis. Orion Aguilera MD Chest X-Ray 11/11/16 0000 Signed Impressions: Service Date/Time: Friday, November 11, 2016 11:46 - CONCLUSION: Minimal bibasilar patchiness consistent with atelectasis and/or mild infiltrates. Clinical correlation is recommended. Renzo Bhandari MD Abdomen X-Ray 11/11/16 0000 Signed Impressions: Service Date/Time: Friday, November 11, 2016 17:02 - CONCLUSION: 1. Air distention of small bowel loops in the left upper abdominal quadrant with decompression of the visualized portions of the colon. Pattern is concerning for possible early small bowel obstruction versus focal hypodynamic ileus. This study will serve as a baseline for followup imaging. 2. Postsurgical changes characteristic of ileal conduit with bilateral double-J stents terminating in the right lower abdominal quadrant. Mando Rodriguez MD Objective Remarks GENERAL: Alert, oriented x 3, NAD. On nasal cannula. SKIN: Warm and dry. HEAD: Normocephalic. EYES: No scleral icterus. No injection or drainage. NECK: Supple, trachea midline. No JVD or lymphadenopathy. CARDIOVASCULAR: Irregularly irregular RESPIRATORY: Breath sounds equal bilaterally. No accessory muscle use. GASTROINTESTINAL: Abdomen soft with ileal conduit and ostomy bag MUSCULOSKELETAL: No cyanosis, or edema. BACK: Nontender without obvious deformity. No CVA tenderness. Procedures 11/05/2016 Symptomatic large supraumbilical hernia. Bladder cancer requiring radical cystectomy. 11/08/2016 1. Radical cystoprostatectomy with ileal conduit. 2. Bilateral pelvic lymph node dissection. Right IJ central line A/P Problem List: (1) Acute exacerbation of chronic obstructive pulmonary disease (COPD) ICD Code: J44.1 Status: Acute (2) Bladder cancer ICD Code: C67.9 Status: Acute (3) HTN (hypertension) ICD Code: I10 Status: Acute (4) Atrial flutter ICD Code: I48.92 Status: Acute Assessment and Plan Mr. Edwards is a pleasant 70-year-old male with a history of bladder cancer, COPD, hypertension who underwent radical cystoprostatectomy, umbilical hernia repair during this admission. Hospitalist service was consulted for COPD exacerbation as well as general medical management. He developed atrial flutter with RVR. Patient was transferred to [facility]. - Bladder cancer - status post radical cystoscopy prostatectomy. Management per urology. - Acute exacerbation of COPD - Patient is requiring 3-4 L of oxygen. Tolerating BiPAP well. Continue PRN BiPAP and BiPAP at night. - Continue levofloxacin 750 mg intravenously until SBO resolves stop date November 18. - Breathing treatment with Xopenex every 4 hours while awake - ileus vs Partial small bowel obstruction - Continue NG suction. Continue gentle hydration. - Developed enterocutaneous fistula. Conservative management continue Bowel rest, NG and TPN. - Atrial flutter with RVR - [id number] score 2 (Age, Hx of HTN). - Continue Cardizem drip. We can start PO Cardizem as well when diet allowed - Cardiology evaluated patient - currently patient is on Cardizem status post Amiodarone drip. - Continue Heparin drip started by cardiology. Future anticoagulation with one of the newer anticoagulants would be an option such as Apixaban. - Hypertension - currently well controlled without any medication. Patient apparently takes Micardis at home. - We'll continue to monitor. If indicated will restart patient's home medication. Hypokalemia. Replace. Repeat BMP and magnesium in the morning Hyperglycemia secondary to TPN. Incorporate 5 units regular insulin per liter TPN bag and continue sliding scale. Full code. Heparin Drip. Anemia secondary to acute blood loss. Asymptomatic. Transfuse packed RBC if hemoglobin less than 7 or if patient is symptomatic DVT prophylaxis patient on heparin drip Navi Monreal MD Nov 16, 2016 13:18
[2016-11-16] MEDS: PANTOPRAZOLE SODIUM 40 MG VIAL IV PUSH SCH (14:12)
[2016-11-16] MEDS: LEVOFLOXACIN 750 MG PREMIX INJ 150 ML IV SCH (17:21)
[2016-11-16] MEDS ORDERED: FAT EMULSION 20% INJ 250 ML (Twice weekly over 8 hours) IV-CENTRAL SCH (20:00)
[2016-11-16] MEDS ORDERED: SODIUM ACETATE IV-CENTRAL SCH ×10 (20:00)
[2016-11-16] MEDS ORDERED: SODIUM CHLORIDE IV-CENTRAL SCH ×10 (20:00)
[2016-11-16] MEDS ORDERED: [UNRECOGNIZED DRUG - OTHER] IV-CENTRAL SCH ×10 (20:00)
--- NOTE | 2016-11-16 20:25 | HHI.PR ---
Subjective Remarks having hunger pains. OOB yesterday for over an hour. [place] stronger. Denies nausea, vomiting, chest pain. Denies flatus. Objective Vital Signs Vital Signs Date Time Temp Pulse Resp B/P Pulse Ox O2 Delivery O2 Flow Rate FiO2 11/16/16 18:00 98 11/16/16 17:00 94 11/16/16 16:25 106 11/16/16 16:00 98.3 98 18 159/64 95 11/16/16 15:00 84 11/16/16 15:00 Nasal Cannula 4.00 11/16/16 14:00 90 11/16/16 13:00 86 11/16/16 12:07 85 11/16/16 12:00 97.6 86 18 138/52 95 11/16/16 11:00 Nasal Cannula 4.00 11/16/16 11:00 94 11/16/16 10:00 88 11/16/16 09:51 98.0 84 18 159/59 95 11/16/16 09:20 94 Nasal Cannula 3.00 11/16/16 09:00 76 11/16/16 08:30 Nasal Cannula 4.00 11/16/16 08:00 78 11/16/16 07:04 88 11/16/16 05:53 87 11/16/16 04:00 85 11/16/16 03:36 98.0 88 18 139/53 97 11/16/16 03:26 Nasal Cannula 4.00 35 11/16/16 03:00 76 11/16/16 02:00 78 11/16/16 01:20 98.4 89 18 129/55 94 11/16/16 01:18 Nasal Cannula 4.00 35 11/16/16 01:00 76 11/16/16 00:00 82 11/15/16 23:22 96 35 11/15/16 23:00 80 11/15/16 22:00 88 11/15/16 21:00 84 I/O 11/15/16 11/15/16 11/15/16 11/16/16 11/16/16 11/16/16 07:00 15:00 23:00 07:00 15:00 23:00 Intake Total 2104 ml 1299 ml 1324 ml 1707 ml Output Total 2300 ml 2150 ml 2075 ml 2000 ml Balance -196 ml -851 ml -751 ml -293 ml Intake Oral 320 ml 480 ml 200 ml IV Total 1784 ml 330 ml 628 ml TPN/PPN 1299 ml 514 ml 879 ml Output Urine Total 1500 ml 1650 ml 1250 ml Stool Total 100 ml 300 ml 125 ml 400 ml Gastric Drainage Total 700 ml 450 ml 300 ml 350 ml Drainage Total 1400 ml Result Diagram: 11/16/16 0430 11/16/16 0554 Objective Remarks NAD. A/O x 3 CTAB.. irregular. abd soft, mildly distended, NT, no peritoneal signs. midline incision draining greenish stool into ostomy. Stoma slightly pink, but dark. Serous drainage from inferior portion of incision Scrotum less edematous, soft Ext NT. No c/c/e Procedures Radical Cystoprostatectomy, Pelvic LN dissection, Ileal Conduit 11/05/2016 Assessment and Plan Assessment and Plan s/p Radical Cystoprostatectomy, Ileal Conduit with post operative ileus, A- flutter with RVR, enterocutaneous fistula -Keep NPO, NGT until bowel function returns. NG output slowly decreasing. Renew TPN. -WBC down. Continue Levaquin 750 mg daily. -Good UOP. -Hgb stable. -PT/OT -Cardizem, Heparin gtt. -Appreciate all service input Duncan Huff MD Nov 16, 2016 20:25
[2016-11-16 21:12] LABS: APTT (PATIENT) 43.2 SEC (24.3-30.1)
[2016-11-16] MEDS ORDERED: ACETAMINOPHEN 1000 MG/100 ML VIAL IV ONE (21:15)
[2016-11-16] MEDS: HEPARIN 25,000 UNITS-D5W 250 ML - PREMIX IV SCH (23:39)
[2016-11-17] VITALS (29 sets, daily range): BP systolic 100–137; BP diastolic 46–69; PULSE 77–102; RESP 18–20; TEMP 97.7–98.3; O2SAT 94–99
[2016-11-17] MEDS: MORPHINE SULFATE 4 MG/ML INJ IV PUSH PRN (00:28)
[2016-11-17] MEDS: RESP: LEVALBUTEROL HYDROCHLORIDE 1.25 MG/3 ML NEB (SCH) NEB ×4 (04:20→21:02)
[2016-11-17] MEDS: INSULIN ASPART SUPPLEMENTAL SCALE SQ SCH ×4 (07:00→20:54)
[2016-11-17 07:18] LABS: APTT (PATIENT) 35.1 SEC (24.3-30.1)
[2016-11-17 07:24] LABS: BICARBONATE 39.7 MEQ/L (21.0-32.0); MAGNESIUM 2.3 MG/DL (1.5-2.5); POTASSIUM 3.3 MEQ/L (3.5-5.1)
[2016-11-17 07:28] LABS: AUTOMATED NEUTROPHIL # 14.4 TH/MM3 (1.8-7.7); BASOPHIL # 0.1 TH/MM3 (0-0.2); BASOPHIL % 0.3 % (0.0-2.0); EOSINOPHIL # 0.3 TH/MM3 (0-0.4); EOSINOPHIL % 1.5 % (0.0-4.0); HEMATOCRIT 23.4 % (39.0-51.0); LYMPH % 8.8 % (9.0-44.0); LYMPHOCYTE # 1.6 TH/MM3 (1.0-4.8); MEAN CELL VOLUME 93.6 FL (80.0-100.0); MEAN CORPUSCULAR HEMOGLOBIN 32.2 PG (27.0-34.0); MEAN CORPUSCULAR HGB CONC 34.4 % (32.0-36.0); MONO % 7.8 % (0.0-8.0); NEUT % 81.6 % (16.0-70.0); PLATELET COUNT 355 TH/MM3 (150-450); RED CELL DISTRIBUTION WIDTH 14.5 % (11.6-17.2); WHITE BLOOD COUNT 17.6 TH/MM3 (4.0-11.0)
[2016-11-17] MEDS: POTASSIUM CHLOR 20 MEQ PREMIX 100 ML IV SCH ×3 (07:30→20:54)
[2016-11-17 07:35] LABS: HEMO FLAGS AUTO DIFF
[2016-11-17] MEDS: HEPARIN SODIUM - IV 10,000 UNITS/10 ML VIAL IV PRN (08:27)
[2016-11-17] MEDS: FUROSEMIDE 40 MG/4 ML VIAL IV PUSH SCH ×2 (08:34→18:09)
[2016-11-17] MEDS: MUPIROCIN 2% OINT 1 APPLIC/GM SYR EACH NARE SCH ×2 (08:34→20:51)
[2016-11-17] MEDS: SODIUM CHLORIDE 0.9% FLUSH 5 ML FLUSH IVF SCH (08:35)
[2016-11-17] MEDS: BUDESONIDE-FORMOTEROL 160/4.5 MCG INHALER INH SCH ×2 (08:35→20:54)
[2016-11-17] MEDS: SPIRIVA RESPIMAT INH SCH (08:35)
[2016-11-17 10:54] LABS: BANDS 21 % (0-6); EOSINOPHILS 2 % (0-4); METAMYELOCYTES 3 % (0-1); MYELOCYTES 7 % (0-0); NEUTROPHIL # MANUAL DIFF 15.3 TH/MM3 (1.8-7.7); POLYS (SEG NEUTROPHILS) 56 % (16-70); WBC DIFF SAMPLE 100
[2016-11-17 10:55] LABS: BURR CELLS 1+ (NORMAL); PLATELET ESTIMATE SMEAR NORMAL (NORMAL); PLATELET MORPHOLOGY CLUMPED (NORMAL); SCAN/DIFF FINAL DIFF MANUAL
--- NOTE | 2016-11-17 11:30 | HHI.PR ---
Subjective Remarks Follow-up COPD. He is doing okay feeling better and wants to get out of bed. Seen with . Discussed with RN. Telemetry shows controlled ventricular response. Objective Vitals Vital Signs Date Time Temp Pulse Resp B/P Pulse Ox O2 Delivery O2 Flow Rate FiO2 11/17/16 09:37 94 Nasal Cannula 3.00 11/17/16 05:52 77 11/17/16 05:40 97.7 96 18 137/56 96 11/17/16 05:00 84 11/17/16 04:00 78 11/17/16 03:15 Nasal Cannula 4.00 11/17/16 03:00 84 11/17/16 02:00 88 11/17/16 01:00 88 11/17/16 00:00 94 11/16/16 23:00 90 11/16/16 23:00 99.7 97 18 135/55 95 11/16/16 23:00 Nasal Cannula 4.00 11/16/16 22:00 98 11/16/16 21:26 98 Nasal Cannula 3.00 11/16/16 21:00 99.0 96 18 151/60 95 11/16/16 21:00 96 11/16/16 20:20 Nasal Cannula 4.00 11/16/16 20:00 88 11/16/16 19:00 94 11/16/16 18:00 98 11/16/16 17:00 94 11/16/16 16:25 106 11/16/16 16:00 98.3 98 18 159/64 95 11/16/16 15:00 84 11/16/16 15:00 Nasal Cannula 4.00 11/16/16 14:00 90 11/16/16 13:00 86 11/16/16 12:07 85 11/16/16 12:00 97.6 86 18 138/52 95 I/O 11/16/16 11/16/16 11/16/16 11/17/16 11/17/16 11/17/16 07:00 15:00 23:00 07:00 15:00 23:00 Intake Total 1324 ml 1707 ml 2090 ml Output Total 2075 ml 2000 ml 1675 ml Balance -751 ml -293 ml 415 ml Intake Oral 480 ml 200 ml 360 ml IV Total 330 ml 628 ml 830 ml TPN/PPN 514 ml 879 ml 900 ml Output Urine Total 1650 ml 1250 ml 1250 ml Stool Total 125 ml 400 ml 125 ml Gastric Drainage Total 300 ml 350 ml 300 ml Result Diagram: 11/17/16 0500 11/17/16 0500 Imaging Last Impressions Abdomen/Pelvis CT 11/14/16 0600 Signed Impressions: Service Date/Time: Monday, November 14, 2016 13:13 - CONCLUSION: 1. Postoperative cystectomy with urinary diversion procedure and urostomy in the right lower quadrant anterior abdominal wall containing 2 ureteral stents passing through a loop of small bowel. 2. Slight increase in basilar lung consolidation. 3. Slight improvement in dilatation of small bowel since prior study. 4. Stable appearance of a small bowel anastomosis in the right lower quadrant with a fistulous tract containing multiple locules of air extending from the area of anastomosis towards the skin staple line. 5. There is a persistent small ventral hernia containing loop of small bowel. Pool Mendoza MD Central Venous Line 11/14/16 0000 Signed Impressions: Service Date/Time: Monday, November 14, 2016 16:07 - CONCLUSION: Uncomplicated line placement as above. Mando Rodriguez MD CT Angiography 11/12/16 0000 Signed Impressions: Service Date/Time: Saturday, November 12, 2016 04:09 - CONCLUSION: 1. No evidence for pulmonary embolism. 2. Abnormal patchy areas of pulmonary consolidation are noted as described above. Small pleural effusions. 3. Emphysema. Timmy Jacobson MD Lower Extremity Ultrasound 11/11/16 0000 Signed Impressions: Service Date/Time: Friday, November 11, 2016 10:03 - CONCLUSION: Negative exam with no evidence of deep venous thrombosis. Orion Aguilera MD Chest X-Ray 11/11/16 0000 Signed Impressions: Service Date/Time: Friday, November 11, 2016 11:46 - CONCLUSION: Minimal bibasilar patchiness consistent with atelectasis and/or mild infiltrates. Clinical correlation is recommended. Renzo Bhandari MD Abdomen X-Ray 11/11/16 0000 Signed Impressions: Service Date/Time: Friday, November 11, 2016 17:02 - CONCLUSION: 1. Air distention of small bowel loops in the left upper abdominal quadrant with decompression of the visualized portions of the colon. Pattern is concerning for possible early small bowel obstruction versus focal hypodynamic ileus. This study will serve as a baseline for followup imaging. 2. Postsurgical changes characteristic of ileal conduit with bilateral double-J stents terminating in the right lower abdominal quadrant. Mando Rodriguez MD Objective Remarks GENERAL: Alert, oriented x 3, NAD. On nasal cannula. SKIN: Warm and dry. HEAD: Normocephalic. EYES: No scleral icterus. No injection or drainage. NECK: Supple, trachea midline. No JVD or lymphadenopathy. CARDIOVASCULAR: Irregularly irregular RESPIRATORY: Breath sounds equal bilaterally. No accessory muscle use. GASTROINTESTINAL: Abdomen soft with ileal conduit and ostomy bag. Improving scrotal swelling MUSCULOSKELETAL: No cyanosis, or edema. BACK: Nontender without obvious deformity. No CVA tenderness. Procedures 11/05/2016 Symptomatic large supraumbilical hernia. Bladder cancer requiring radical cystectomy. 11/08/2016 1. Radical cystoprostatectomy with ileal conduit. 2. Bilateral pelvic lymph node dissection. Right IJ central line A/P Problem List: (1) Acute exacerbation of chronic obstructive pulmonary disease (COPD) ICD Code: J44.1 Status: Acute (2) Bladder cancer ICD Code: C67.9 Status: Acute (3) HTN (hypertension) ICD Code: I10 Status: Acute (4) Atrial flutter ICD Code: I48.92 Status: Acute Assessment and Plan Mr. Edwards is a pleasant 70-year-old male with a history of bladder cancer, COPD, hypertension who underwent radical cystoprostatectomy, umbilical hernia repair during this admission. Hospitalist service was consulted for COPD exacerbation as well as general medical management. He developed atrial flutter with RVR. Patient was transferred to [facility]. - Bladder cancer - status post radical cystoscopy prostatectomy. Management per urology. - Acute exacerbation of COPD - Patient is requiring 3-4 L of oxygen. Tolerating BiPAP well. Continue PRN BiPAP and BiPAP at night. - Continue levofloxacin 750 mg intravenously until SBO resolves stop date November 18. - Breathing treatment with Xopenex every 4 hours while awake - ileus vs Partial small bowel obstruction - Continue NG suction. Continue gentle hydration. - Developed enterocutaneous fistula. Conservative management continue Bowel rest, NG and TPN. - Atrial flutter with RVR - [id number] score 2 (Age, Hx of HTN). - Continue Cardizem drip. We can start PO Cardizem as well when diet allowed - Cardiology evaluated patient - currently patient is on Cardizem status post Amiodarone drip. - Continue Heparin drip started by cardiology. Future anticoagulation with one of the newer anticoagulants would be an option such as Apixaban. - Hypertension - currently well controlled without any medication. Patient apparently takes Micardis at home. - We'll continue to monitor. If indicated will restart patient's home medication. Hypokalemia. Replace. Repeat BMP and magnesium in the morning Hyperglycemia secondary to TPN. Continue 5 units regular insulin per liter TPN bag and continue sliding scale. We'll adjust insulin dose per glycemic trends Anemia secondary to acute blood loss. Asymptomatic. Transfuse packed RBC if hemoglobin less than 7 or if patient is symptomatic. Improved to 8.1 times Leukocytosis. Slightly worse. Patient no fever and blood cultures negative. We will monitor. Likely reactive FEN. Ct TPN Deconditioning. Continue physical therapy, out of bed DVT prophylaxis patient on heparin drip Navi Monreal MD Nov 17, 2016 11:30
--- NOTE | 2016-11-17 12:57 | HHI.PR ---
Subjective Remarks no acute issues overnight. Passing flatus in colostomy bag, not sure through rectum but he continues to have hunger pains, lower abdominal cramps. Denies fevers, chills. Objective Vital Signs Vital Signs Date Time Temp Pulse Resp B/P Pulse Ox O2 Delivery O2 Flow Rate FiO2 11/17/16 09:37 94 Nasal Cannula 3.00 11/17/16 05:52 77 11/17/16 05:40 97.7 96 18 137/56 96 11/17/16 05:00 84 11/17/16 04:00 78 11/17/16 03:15 Nasal Cannula 4.00 11/17/16 03:00 84 11/17/16 02:00 88 11/17/16 01:00 88 11/17/16 00:00 94 11/16/16 23:00 90 11/16/16 23:00 99.7 97 18 135/55 95 11/16/16 23:00 Nasal Cannula 4.00 11/16/16 22:00 98 11/16/16 21:26 98 Nasal Cannula 3.00 11/16/16 21:00 99.0 96 18 151/60 95 11/16/16 21:00 96 11/16/16 20:20 Nasal Cannula 4.00 11/16/16 20:00 88 11/16/16 19:00 94 11/16/16 18:00 98 11/16/16 17:00 94 11/16/16 16:25 106 11/16/16 16:00 98.3 98 18 159/64 95 11/16/16 15:00 84 11/16/16 15:00 Nasal Cannula 4.00 11/16/16 14:00 90 11/16/16 13:00 86 I/O 11/16/16 11/16/16 11/16/16 11/17/16 11/17/16 11/17/16 07:00 15:00 23:00 07:00 15:00 23:00 Intake Total 1324 ml 1707 ml 2090 ml Output Total 2075 ml 2000 ml 1675 ml Balance -751 ml -293 ml 415 ml Intake Oral 480 ml 200 ml 360 ml IV Total 330 ml 628 ml 830 ml TPN/PPN 514 ml 879 ml 900 ml Output Urine Total 1650 ml 1250 ml 1250 ml Stool Total 125 ml 400 ml 125 ml Gastric Drainage Total 300 ml 350 ml 300 ml Result Diagram: 11/17/16 0500 11/17/16 0500 Objective Remarks NAD. A/O x 3 CTAB.. irregular. abd soft, mildly distended, tenderness at hernia incision, no peritoneal signs. midline incision draining greenish stool into ostomy. Stoma slightly pink, but dark. Serous drainage from inferior portion of incision Scrotum less edematous, soft Ext NT. No c/c/e Procedures Radical Cystoprostatectomy, Pelvic LN dissection, Ileal Conduit 11/05/2016 Assessment and Plan Assessment and Plan s/p Radical Cystoprostatectomy, Ileal Conduit with post operative ileus, A- flutter with RVR, enterocutaneous fistula -Clamp NGT tube. Keep NPO. On Protonix. Renew TPN. -HGB up to 8.1 -Good UOP. Renal function normal. -OOB today. PT/OT -WBC up slightly. On Levaquin 750 mg daily. -Appreciate other service input. Duncan Huff MD Nov 17, 2016 12:57
[2016-11-17 14:33] LABS: APTT (PATIENT) 57.6 SEC (24.3-30.1)
[2016-11-17] MEDS: PANTOPRAZOLE SODIUM 40 MG VIAL IV PUSH SCH (14:40)
[2016-11-17] MEDS: HEPARIN 25,000 UNITS-D5W 250 ML - PREMIX IV SCH (15:42)
[2016-11-17] MEDS: LEVOFLOXACIN 750 MG PREMIX INJ 150 ML IV SCH (18:09)
[2016-11-17] MEDS ORDERED: [UNRECOGNIZED DRUG - OTHER] IV-CENTRAL SCH ×9 (20:00)
[2016-11-17] MEDS ORDERED: POTASSIUM CHLORIDE IV-CENTRAL SCH ×9 (20:00)
[2016-11-17] MEDS ORDERED: SODIUM CHLORIDE IV-CENTRAL SCH ×9 (20:00)
[2016-11-17 23:21] LABS: APTT (PATIENT) 50.1 SEC (24.3-30.1)
[2016-11-18] VITALS (28 sets, daily range): BP systolic 113–157; BP diastolic 51–74; PULSE 84–102; RESP 18–26; TEMP 98–98.9; O2SAT 95–100
[2016-11-18] MEDS: RESP: LEVALBUTEROL HYDROCHLORIDE 1.25 MG/3 ML NEB (SCH) NEB ×4 (03:24→20:12)
[2016-11-18 05:53] LABS: AUTOMATED NEUTROPHIL # 15.9 TH/MM3 (1.8-7.7); BASOPHIL % 0.1 % (0.0-2.0); EOSINOPHIL # 0.1 TH/MM3 (0-0.4); EOSINOPHIL % 0.5 % (0.0-4.0); HEMATOCRIT 24.5 % (39.0-51.0); LYMPH % 7.7 % (9.0-44.0); LYMPHOCYTE # 1.5 TH/MM3 (1.0-4.8); MEAN CELL VOLUME 93.9 FL (80.0-100.0); MEAN CORPUSCULAR HEMOGLOBIN 31.5 PG (27.0-34.0); MEAN CORPUSCULAR HGB CONC 33.5 % (32.0-36.0); MONO % 7.8 % (0.0-8.0); NEUT % 83.9 % (16.0-70.0); PLATELET COUNT 375 TH/MM3 (150-450); RED BLOOD COUNT 2.61 MIL/MM3 (4.50-5.90); RED CELL DISTRIBUTION WIDTH 14.3 % (11.6-17.2)
[2016-11-18 05:58] LABS: HEMO FLAGS AUTO DIFF
[2016-11-18 06:22] LABS: MAGNESIUM 2.2 MG/DL (1.5-2.5); POTASSIUM 4.2 MEQ/L (3.5-5.1)
[2016-11-18] MEDS: INSULIN ASPART SUPPLEMENTAL SCALE SQ SCH ×4 (06:25→21:50)
[2016-11-18 07:15] LABS: METAMYELOCYTES 1 % (0-1); MYELOCYTES 6 % (0-0); POLYS (SEG NEUTROPHILS) 77 % (16-70); SCAN/DIFF FINAL DIFF MANUAL; WBC DIFF SAMPLE 100
[2016-11-18 07:16] LABS: PLATELET ESTIMATE SMEAR NORMAL (NORMAL); PLATELET MORPHOLOGY NORMAL (NORMAL)
[2016-11-18] MEDS: MUPIROCIN 2% OINT 1 APPLIC/GM SYR EACH NARE SCH ×2 (09:00→21:50)
[2016-11-18] MEDS: SPIRIVA RESPIMAT INH SCH (09:00)
--- NOTE | 2016-11-18 09:12 | HHI.PR ---
Subjective Subjective Notes Resting in bed; no complaints Objective Vitals/I&O Vital Signs Date Time Temp Pulse Resp B/P Pulse Ox O2 Delivery O2 Flow Rate FiO2 11/18/16 08:44 100 Nasal Cannula 3.00 11/18/16 06:00 88 11/18/16 03:53 98.0 18 132/62 11/18/16 00:25 35 Labs Laboratory Tests Test 11/17/16 11/17/16 11/18/16 13:40 22:58 05:00 Activated Partial 57.6 50.1 49.0 Thromboplast Time White Blood Count 19.0 Red Blood Count 2.61 Hemoglobin 8.2 Hematocrit 24.5 Mean Corpuscular Volume 93.9 Mean Corpuscular Hemoglobin 31.5 Mean Corpuscular Hemoglobin 33.5 Concent Red Cell Distribution Width 14.3 Platelet Count 375 Mean Platelet Volume 8.0 Neutrophils (%) (Auto) 83.9 Lymphocytes (%) (Auto) 7.7 Monocytes (%) (Auto) 7.8 Eosinophils (%) (Auto) 0.5 Basophils (%) (Auto) 0.1 Neutrophils # (Auto) 15.9 Lymphocytes # (Auto) 1.5 Monocytes # (Auto) 1.5 Eosinophils # (Auto) 0.1 Basophils # (Auto) 0.0 CBC Comment AUTO DIFF Differential Total Cells 100 Counted Neutrophils % (Manual) 77 Lymphocytes % 5 Monocytes % 11 Neutrophils # (Manual) 16.0 Metamyelocytes 1 Myelocytes 6 Differential Comment FINAL DIFF MANUAL Platelet Estimate NORMAL Platelet Morphology Comment NORMAL Sodium Level 133 Potassium Level 4.2 Chloride Level 91 Carbon Dioxide Level 36.0 Anion Gap 6 Blood Urea Nitrogen 21 Creatinine 0.76 Estimat Glomerular Filtration 101 Rate Random Glucose 189 Calcium Level 8.0 Magnesium Level 2.2 Date/Time Procedure Status Source Growth 11/18/16 07:40 Aerobic Blood Culture Received Blood Line Pending 11/18/16 07:40 Anaerobic Blood Culture Received Blood Line Pending 11/14/16 17:30 MRSA Surveillance Culture - Final Complete Nasopharyngeal Positive For Mrsa Cardiovascular: Regular Lungs: Clear Abdomen: Other (see below) Extremities: No edema Narrative Exam Midline incision (from Urology) procedure---fistula present with colostomy bag in place for collection of drainage; noah intact NGT in place to LIWS A/P Assessment and Plan 70 year old male s/p radical cystectomy and ileo conduit (by Urology); s/p UHR ( by General Surgery) -Post op ileus. -Continue colostomy bag for wound drainage; Wound Care team following -Recommend DC NGT and start PO diet; Nutrition essential to healing -Encourage mobilization -Will see Annika Walsh Nov 18, 2016 09:12
[2016-11-18] MEDS: FUROSEMIDE 40 MG/4 ML VIAL IV PUSH SCH ×2 (09:32→17:36)
[2016-11-18] MEDS: SODIUM CHLORIDE 0.9% FLUSH 5 ML FLUSH IVF SCH (09:33)
[2016-11-18] MEDS: POTASSIUM CHLOR 20 MEQ PREMIX 100 ML IV SCH (09:36)
[2016-11-18] MEDS: BUDESONIDE-FORMOTEROL 160/4.5 MCG INHALER INH SCH ×2 (09:39→21:50)
--- NOTE | 2016-11-18 11:15 | HHI.PR ---
Subjective Remarks Follow-up leukocytosis. Patient has worsening leukocytosis but has no complaints. Tolerating liquid diet. Discussed with RN Objective Vitals Vital Signs Date Time Temp Pulse Resp B/P Pulse Ox O2 Delivery O2 Flow Rate FiO2 11/18/16 08:44 100 Nasal Cannula 3.00 11/18/16 07:30 88 20 127/51 97 11/18/16 07:30 97 Nasal Cannula 4.00 11/18/16 06:00 88 11/18/16 05:00 90 11/18/16 04:00 94 11/18/16 03:56 Nasal Cannula 4.00 11/18/16 03:53 98.0 92 18 132/62 98 11/18/16 03:00 88 11/18/16 02:00 88 11/18/16 01:00 94 11/18/16 00:25 98 35 11/18/16 00:00 Nasal Cannula 4.00 11/18/16 00:00 98.1 96 20 130/66 98 11/18/16 00:00 102 11/17/16 23:00 94 11/17/16 22:00 102 11/17/16 21:02 99 Nasal Cannula 4.00 11/17/16 21:00 98 11/17/16 20:00 98.0 93 20 121/46 98 11/17/16 20:00 Nasal Cannula 4.00 11/17/16 20:00 96 11/17/16 19:00 100 11/17/16 18:00 100 11/17/16 17:00 86 11/17/16 16:00 88 11/17/16 15:45 98.1 92 20 100/53 98 11/17/16 15:30 Nasal Cannula 4.00 11/17/16 15:00 90 11/17/16 13:00 84 11/17/16 12:03 87 11/17/16 12:00 98.0 88 18 105/50 98 I/O 11/17/16 11/17/16 11/17/16 11/18/16 11/18/16 11/18/16 07:00 15:00 23:00 07:00 15:00 23:00 Intake Total 2090 ml 1915 ml Output Total 1675 ml 1500 ml 1675 ml Balance 415 ml 415 ml -1675 ml Intake Oral 360 ml IV Total 830 ml 501 ml TPN/PPN 900 ml 1414 ml Output Urine Total 1250 ml 1400 ml 1450 ml Stool Total 125 ml 100 ml 125 ml Gastric Drainage Total 300 ml 100 ml Result Diagram: 11/18/16 0500 11/18/16 0500 Imaging Last Impressions Abdomen/Pelvis CT 11/14/16 0600 Signed Impressions: Service Date/Time: Monday, November 14, 2016 13:13 - CONCLUSION: 1. Postoperative cystectomy with urinary diversion procedure and urostomy in the right lower quadrant anterior abdominal wall containing 2 ureteral stents passing through a loop of small bowel. 2. Slight increase in basilar lung consolidation. 3. Slight improvement in dilatation of small bowel since prior study. 4. Stable appearance of a small bowel anastomosis in the right lower quadrant with a fistulous tract containing multiple locules of air extending from the area of anastomosis towards the skin staple line. 5. There is a persistent small ventral hernia containing loop of small bowel. Pool Mendoza MD Central Venous Line 11/14/16 0000 Signed Impressions: Service Date/Time: Monday, November 14, 2016 16:07 - CONCLUSION: Uncomplicated line placement as above. Mando Rodriguez MD CT Angiography 11/12/16 0000 Signed Impressions: Service Date/Time: Saturday, November 12, 2016 04:09 - CONCLUSION: 1. No evidence for pulmonary embolism. 2. Abnormal patchy areas of pulmonary consolidation are noted as described above. Small pleural effusions. 3. Emphysema. Timmy Jacobson MD Lower Extremity Ultrasound 11/11/16 0000 Signed Impressions: Service Date/Time: Friday, November 11, 2016 10:03 - CONCLUSION: Negative exam with no evidence of deep venous thrombosis. Orion Aguilera MD Chest X-Ray 11/11/16 0000 Signed Impressions: Service Date/Time: Friday, November 11, 2016 11:46 - CONCLUSION: Minimal bibasilar patchiness consistent with atelectasis and/or mild infiltrates. Clinical correlation is recommended. Renzo Bhandari MD Abdomen X-Ray 11/11/16 0000 Signed Impressions: Service Date/Time: Friday, November 11, 2016 17:02 - CONCLUSION: 1. Air distention of small bowel loops in the left upper abdominal quadrant with decompression of the visualized portions of the colon. Pattern is concerning for possible early small bowel obstruction versus focal hypodynamic ileus. This study will serve as a baseline for followup imaging. 2. Postsurgical changes characteristic of ileal conduit with bilateral double-J stents terminating in the right lower abdominal quadrant. Mando Rodriguez MD Objective Remarks GENERAL: Alert, oriented x 3, NAD. On nasal cannula. SKIN: Warm and dry. HEAD: Normocephalic. EYES: No scleral icterus. No injection or drainage. NECK: Supple, trachea midline. No JVD or lymphadenopathy. CARDIOVASCULAR: Irregularly irregular RESPIRATORY: Breath sounds equal bilaterally. No accessory muscle use. GASTROINTESTINAL: Abdomen soft with ileal conduit and ostomy bag. Improving scrotal swelling MUSCULOSKELETAL: No cyanosis, or edema. BACK: Nontender without obvious deformity. No CVA tenderness. Procedures 11/05/2016 Symptomatic large supraumbilical hernia. Bladder cancer requiring radical cystectomy. 11/08/2016 1. Radical cystoprostatectomy with ileal conduit. 2. Bilateral pelvic lymph node dissection. Right IJ central line A/P Problem List: (1) Acute exacerbation of chronic obstructive pulmonary disease (COPD) ICD Code: J44.1 Status: Acute (2) Bladder cancer ICD Code: C67.9 Status: Acute (3) HTN (hypertension) ICD Code: I10 Status: Acute (4) Atrial flutter ICD Code: I48.92 Status: Acute Assessment and Plan Mr. Edwards is a pleasant 70-year-old male with a history of bladder cancer, COPD, hypertension who underwent radical cystoprostatectomy, umbilical hernia repair during this admission. Hospitalist service was consulted for COPD exacerbation as well as general medical management. He developed atrial flutter with RVR. Patient was transferred to [facility]. - Bladder cancer - status post radical cystoscopy prostatectomy. Management per urology. - Acute exacerbation of COPD - Patient is requiring 3-4 L of oxygen. Tolerating BiPAP well. Continue PRN BiPAP and BiPAP at night. - Continue levofloxacin 750 mg intravenously until SBO resolves stop date November 18 today. - Breathing treatment with Xopenex every 4 hours while awake - ileus vs Partial small bowel obstruction. Improved - NGT has been clamped - Developed enterocutaneous fistula. Conservative management continue TPN. Started on liquid diet - Atrial flutter with RVR - [id number] score 2 (Age, Hx of HTN). - Continue Cardizem drip. We can start PO Cardizem as well when diet allowed - Cardiology evaluated patient - currently patient is on Cardizem status post Amiodarone drip. - Continue Heparin drip started by cardiology. Future anticoagulation with one of the newer anticoagulants would be an option such as Apixaban. - Hypertension - currently well controlled without any medication. Patient apparently takes Micardis at home. - We'll continue to monitor. If indicated will restart patient's home medication. Hypokalemia. Replace. Repeat BMP and magnesium in the morning Hyperglycemia secondary to TPN. Continue 10 units regular insulin per liter TPN bag and continue sliding scale. We'll adjust insulin dose per glycemic trends Anemia secondary to acute blood loss. Asymptomatic. Transfuse packed RBC if hemoglobin less than 7 or if patient is symptomatic. Improved Leukocytosis. Worsening. Patient no fever. Repeat blood cultures and check C. difficile FEN. Ct TPN Deconditioning. Continue physical therapy, out of bed DVT prophylaxis patient on heparin drip Navi Monreal MD Nov 18, 2016 11:15
--- NOTE | 2016-11-18 13:20 | HHI.PR ---
Subjective Remarks has had several loose BMs from his rectum. Tolerating clears. Denies fevers, chills, nausea, chest pain or shortness of breath. Has not been OOB today. Objective Vital Signs Vital Signs Date Time Temp Pulse Resp B/P Pulse Ox O2 Delivery O2 Flow Rate FiO2 11/18/16 08:44 100 Nasal Cannula 3.00 11/18/16 07:30 88 20 127/51 97 11/18/16 07:30 97 Nasal Cannula 4.00 11/18/16 06:00 88 11/18/16 05:00 90 11/18/16 04:00 94 11/18/16 03:56 Nasal Cannula 4.00 11/18/16 03:53 98.0 92 18 132/62 98 11/18/16 03:00 88 11/18/16 02:00 88 11/18/16 01:00 94 11/18/16 00:25 98 35 11/18/16 00:00 Nasal Cannula 4.00 11/18/16 00:00 98.1 96 20 130/66 98 11/18/16 00:00 102 11/17/16 23:00 94 11/17/16 22:00 102 11/17/16 21:02 99 Nasal Cannula 4.00 11/17/16 21:00 98 11/17/16 20:00 98.0 93 20 121/46 98 11/17/16 20:00 Nasal Cannula 4.00 11/17/16 20:00 96 11/17/16 19:00 100 11/17/16 18:00 100 11/17/16 17:00 86 11/17/16 16:00 88 11/17/16 15:45 98.1 92 20 100/53 98 11/17/16 15:30 Nasal Cannula 4.00 11/17/16 15:00 90 I/O 11/17/16 11/17/16 11/17/16 11/18/16 11/18/16 11/18/16 07:00 15:00 23:00 07:00 15:00 23:00 Intake Total 2090 ml 1915 ml Output Total 1675 ml 1500 ml 1675 ml Balance 415 ml 415 ml -1675 ml Intake Oral 360 ml IV Total 830 ml 501 ml TPN/PPN 900 ml 1414 ml Output Urine Total 1250 ml 1400 ml 1450 ml Stool Total 125 ml 100 ml 125 ml Gastric Drainage Total 300 ml 100 ml Result Diagram: 11/18/16 0500 11/18/16 0500 Objective Remarks NAD. A/O x 3 CTAB.. irregular. abd soft, mildly distended, tenderness at hernia incision, no peritoneal signs. midline incision draining greenish stool into ostomy. Stoma black superficially , but pink at base. Still appears viable. Serous drainage from inferior portion of incision Scrotum less edematous, soft Ext NT. No c/c/e Procedures Radical Cystoprostatectomy, Pelvic LN dissection, Ileal Conduit 11/05/2016 Assessment and Plan Assessment and Plan s/p Radical Cystoprostatectomy, Ileal Conduit with post operative ileus, A- flutter with RVR, enterocutaneous fistula -Clamp NGT tube. Clear liquid diet. Renew TPN. Protonix. Ileus resolving. -Loose stools likely from bowels waking up, lack of solid food for 2 weeks. Doubt C diff. -ok to Switch to PO meds. Defer to Medicine. -Good UOP. Renal function normal. -OOB today. PT/OT -WBC up slightly. Afebrile. Culture negative. Likely reactionary. -Appreciate other service input. Duncan Huff MD Nov 18, 2016 13:20
[2016-11-18] MEDS: MORPHINE SULFATE 4 MG/ML INJ IV PUSH PRN (15:40)
[2016-11-18] MEDS: PANTOPRAZOLE SODIUM 40 MG VIAL IV PUSH SCH (15:40)
[2016-11-18] MEDS: LEVOFLOXACIN 750 MG PREMIX INJ 150 ML IV SCH (17:35)
[2016-11-18] MEDS: DILTIAZEM INJ 125 MG in SODIUM CHLORIDE 0.9% INJ 100 ML IV SCH (17:37)
[2016-11-18] MEDS ORDERED: [UNRECOGNIZED DRUG - OTHER] IV-CENTRAL SCH ×9 (19:29)
[2016-11-18] MEDS ORDERED: POTASSIUM CHLORIDE IV-CENTRAL SCH ×18 (19:29→20:00)
[2016-11-18] MEDS ORDERED: SODIUM CHLORIDE IV-CENTRAL SCH ×18 (19:29→20:00)
[2016-11-18] MEDS ORDERED: [UNRECOGNIZED DRUG - OTHER] IV-CENTRAL SCH ×9 (20:00)
[2016-11-18] MEDS: POTASSIUM CHLORIDE 20 MEQ CONTROLLED RELEASE TAB PO SCH (21:49)
[2016-11-18] MEDS: DILTIAZEM HCL 30 MG TAB PO SCH (21:49)
[2016-11-18] MEDS: ATORVASTATIN 40 MG TAB PO SCH (21:50)
[2016-11-18] MEDS: CALCIUM CARBONATE 500 MG CHEWABLE TAB CHEW PRN (23:29)
[2016-11-19] VITALS (19 sets, daily range): BP systolic 104–143; BP diastolic 41–94; PULSE 72–93; RESP 20–36; TEMP 97–98.8; O2SAT 96–100
[2016-11-19] MEDS: HEPARIN 25,000 UNITS-D5W 250 ML - PREMIX IV SCH ×2 (02:03→19:42)
[2016-11-19] MEDS: RESP: LEVALBUTEROL HYDROCHLORIDE 1.25 MG/3 ML NEB (SCH) NEB ×4 (03:27→22:26)
[2016-11-19 05:52] LABS: AUTOMATED NEUTROPHIL # 14.4 TH/MM3 (1.8-7.7); BASOPHIL % 0.2 % (0.0-2.0); EOSINOPHIL # 0.2 TH/MM3 (0-0.4); EOSINOPHIL % 0.9 % (0.0-4.0); HEMATOCRIT 23.1 % (39.0-51.0); LYMPHOCYTE # 1.4 TH/MM3 (1.0-4.8); MEAN CELL VOLUME 91.9 FL (80.0-100.0); MEAN CORPUSCULAR HEMOGLOBIN 30.9 PG (27.0-34.0); MEAN CORPUSCULAR HGB CONC 33.6 % (32.0-36.0); MONO % 8.2 % (0.0-8.0); NEUT % 82.7 % (16.0-70.0); PLATELET COUNT 413 TH/MM3 (150-450); RED BLOOD COUNT 2.51 MIL/MM3 (4.50-5.90); RED CELL DISTRIBUTION WIDTH 14.3 % (11.6-17.2); WHITE BLOOD COUNT 17.4 TH/MM3 (4.0-11.0)
[2016-11-19 05:55] LABS: HEMO FLAGS AUTO DIFF
[2016-11-19 06:09] LABS: BICARBONATE 33.6 MEQ/L (21.0-32.0); MAGNESIUM 2.3 MG/DL (1.5-2.5); POTASSIUM 4.8 MEQ/L (3.5-5.1)
[2016-11-19] MEDS: INSULIN ASPART SUPPLEMENTAL SCALE SQ SCH ×4 (06:39→21:00)
[2016-11-19] MEDS: SPIRIVA RESPIMAT INH SCH (09:00)
[2016-11-19] MEDS: MUPIROCIN 2% OINT 1 APPLIC/GM SYR EACH NARE SCH ×2 (09:00→20:50)
[2016-11-19] MEDS: FUROSEMIDE 40 MG/4 ML VIAL IV PUSH SCH ×2 (09:03→18:00)
[2016-11-19] MEDS: LOSARTAN 50 MG TAB PO SCH (09:04)
[2016-11-19] MEDS: CETIRIZINE HCL 10 MG TAB PO SCH (09:04)
[2016-11-19] MEDS: DILTIAZEM HCL 30 MG TAB PO SCH ×4 (09:04→20:50)
[2016-11-19] MEDS: POTASSIUM CHLORIDE 20 MEQ CONTROLLED RELEASE TAB PO SCH ×2 (09:04→20:50)
[2016-11-19] MEDS: PANTOPRAZOLE SOD 40 MG DELAYED RELEASE TAB PO SCH (09:04)
[2016-11-19] MEDS: SODIUM CHLORIDE 0.9% FLUSH 5 ML FLUSH IVF SCH (09:06)
[2016-11-19] MEDS: BUDESONIDE-FORMOTEROL 160/4.5 MCG INHALER INH SCH ×2 (09:06→20:50)
[2016-11-19 10:19] LABS: BANDS 9 % (0-6); METAMYELOCYTES 1 % (0-1); MYELOCYTES 4 % (0-0); NEUTROPHIL # MANUAL DIFF 14.6 TH/MM3 (1.8-7.7); POLYS (SEG NEUTROPHILS) 70 % (16-70); WBC DIFF SAMPLE 100
[2016-11-19 10:20] LABS: PLATELET ESTIMATE SMEAR NORMAL (NORMAL); PLATELET MORPHOLOGY NORMAL (NORMAL); SCAN/DIFF FINAL DIFF MANUAL
[2016-11-19 11:53] LABS: APTT (PATIENT) 38.7 SEC (24.3-30.1)
--- NOTE | 2016-11-19 12:48 | HHI.PR ---
Subjective Remarks Follow-up hyperglycemia. Patient has no complaints. Discussed with pharmacy, insulin will be increased to 32 units in the TPN bag. Discussed with RN, sliding scale will be changed to high-dose. Also had an episode of decreased responsiveness patient states he was sleepy. Objective Vitals Vital Signs Date Time Temp Pulse Resp B/P Pulse Ox O2 Delivery O2 Flow Rate FiO2 11/19/16 12:31 98.8 80 20 132/94 98 11/19/16 10:02 90 11/19/16 09:45 87 11/19/16 09:14 97 Nasal Cannula 3.00 11/19/16 08:00 82 11/19/16 07:32 97.0 76 20 131/52 98 11/19/16 07:30 97 3.00 11/19/16 07:00 82 11/19/16 06:00 87 11/19/16 05:00 82 11/19/16 04:00 98.3 86 24 143/67 98 11/19/16 04:00 91 11/19/16 04:00 98 Nasal Cannula 4.00 11/19/16 03:00 86 11/19/16 02:00 88 11/19/16 01:00 92 11/19/16 00:00 90 11/19/16 00:00 96 Nasal Cannula 4.00 11/19/16 00:00 98.3 93 24 138/54 96 11/18/16 23:00 90 11/18/16 22:00 94 11/18/16 21:00 90 11/18/16 20:00 94 11/18/16 20:00 Nasal Cannula 4.00 11/18/16 20:00 98.9 98 26 113/58 98 11/18/16 18:18 135/74 11/18/16 18:00 88 11/18/16 17:00 92 11/18/16 16:00 98.4 97 20 157/70 96 11/18/16 16:00 94 11/18/16 15:30 95 Nasal Cannula 4.00 11/18/16 15:00 89 11/18/16 14:00 100 11/18/16 13:00 96 I/O 11/18/16 11/18/16 11/18/16 11/19/16 11/19/16 11/19/16 07:00 15:00 23:00 07:00 15:00 23:00 Intake Total 2280 ml 1221 ml Output Total 1675 ml 800 ml 1375 ml 50 ml Balance -1675 ml 1480 ml -154 ml -50 ml Intake Oral 480 ml 360 ml IV Total 1800 ml 861 ml Output Urine Total 1450 ml 700 ml 1200 ml Stool Total 125 ml 100 ml 175 ml 50 ml Gastric Drainage Total 100 ml # Bowel Movements 0 Result Diagram: 11/19/16 0540 11/19/16 0540 Imaging Last Impressions Chest X-Ray 11/19/16 0000 Signed Impressions: Service Date/Time: Saturday, November 19, 2016 13:34 - CONCLUSION: 1. No placement of right central venous line with no evidence of pneumothorax. 2. Interval placement of nasogastric tube. 3. Patchy opacity remains at the lung bases. Orion Aguilera MD Abdomen/Pelvis CT 11/14/16 0600 Signed Impressions: Service Date/Time: Monday, November 14, 2016 13:13 - CONCLUSION: 1. Postoperative cystectomy with urinary diversion procedure and urostomy in the right lower quadrant anterior abdominal wall containing 2 ureteral stents passing through a loop of small bowel. 2. Slight increase in basilar lung consolidation. 3. Slight improvement in dilatation of small bowel since prior study. 4. Stable appearance of a small bowel anastomosis in the right lower quadrant with a fistulous tract containing multiple locules of air extending from the area of anastomosis towards the skin staple line. 5. There is a persistent small ventral hernia containing loop of small bowel. Pool Mendoza MD Central Venous Line 11/14/16 0000 Signed Impressions: Service Date/Time: Monday, November 14, 2016 16:07 - CONCLUSION: Uncomplicated line placement as above. Mando Rodriguez MD CT Angiography 11/12/16 0000 Signed Impressions: Service Date/Time: Saturday, November 12, 2016 04:09 - CONCLUSION: 1. No evidence for pulmonary embolism. 2. Abnormal patchy areas of pulmonary consolidation are noted as described above. Small pleural effusions. 3. Emphysema. Timmy Jacobson MD Lower Extremity Ultrasound 11/11/16 0000 Signed Impressions: Service Date/Time: Friday, November 11, 2016 10:03 - CONCLUSION: Negative exam with no evidence of deep venous thrombosis. Orion Aguilera MD Abdomen X-Ray 11/11/16 0000 Signed Impressions: Service Date/Time: Friday, November 11, 2016 17:02 - CONCLUSION: 1. Air distention of small bowel loops in the left upper abdominal quadrant with decompression of the visualized portions of the colon. Pattern is concerning for possible early small bowel obstruction versus focal hypodynamic ileus. This study will serve as a baseline for followup imaging. 2. Postsurgical changes characteristic of ileal conduit with bilateral double-J stents terminating in the right lower abdominal quadrant. Mando Rodriguez MD Objective Remarks GENERAL: Alert, oriented x 3, NAD. On nasal cannula. SKIN: Warm and dry. HEAD: Normocephalic. EYES: No scleral icterus. No injection or drainage. NECK: Supple, trachea midline. No JVD or lymphadenopathy. CARDIOVASCULAR: Irregularly irregular RESPIRATORY: Breath sounds equal bilaterally. No accessory muscle use. GASTROINTESTINAL: Abdomen soft with ileal conduit and ostomy bag. Some erythema surrounding wounds. Improving scrotal swelling MUSCULOSKELETAL: No cyanosis, or edema. BACK: Nontender without obvious deformity. No CVA tenderness. Procedures 11/05/2016 Symptomatic large supraumbilical hernia. Bladder cancer requiring radical cystectomy. 11/08/2016 1. Radical cystoprostatectomy with ileal conduit. 2. Bilateral pelvic lymph node dissection. Right IJ central line A/P Problem List: (1) Acute exacerbation of chronic obstructive pulmonary disease (COPD) ICD Code: J44.1 Status: Acute (2) Bladder cancer ICD Code: C67.9 Status: Acute (3) HTN (hypertension) ICD Code: I10 Status: Acute (4) Atrial flutter ICD Code: I48.92 Status: Acute Assessment and Plan Mr. Edwards is a pleasant 70-year-old male with a history of bladder cancer, COPD, hypertension who underwent radical cystoprostatectomy, umbilical hernia repair during this admission. Hospitalist service was consulted for COPD exacerbation as well as general medical management. He developed atrial flutter with RVR. Patient was transferred to [facility]. - Bladder cancer - status post radical cystoscopy prostatectomy. Management per urology. - Acute exacerbation of COPD - Patient is requiring 3-4 L of oxygen. Tolerating BiPAP well. Continue PRN BiPAP and BiPAP at night. - S/p levofloxacin - Breathing treatment with Xopenex every 4 hours while awake - ileus vs Partial small bowel obstruction. Improved - NGT has been clamped - Developed enterocutaneous fistula. Conservative management continue TPN. Advance diet as tolerated - Atrial flutter with RVR - [id number] score 2 (Age, Hx of HTN). -Status post Cardizem drip. Continue by mouth Cardizem - Cardiology evaluated patient - currently patient is on Cardizem status post Amiodarone drip. - Continue Heparin drip started by cardiology. Future anticoagulation with one of the newer anticoagulants would be an option such as Apixaban. Pros and cons of anticoagulation discussed with patient and . He will make a decision of what agent to use either aspirin, Coumadin or novel agents - Hypertension - currently well controlled without any medication. Patient apparently takes Micardis at home. - We'll continue to monitor. If indicated will restart patient's home medication. Hypokalemia. Replace. Repeat BMP and magnesium in the morning Hyperglycemia secondary to TPN. Increase to 32 units units regular insulin per liter TPN bag and sliding scale to high dose. We'll adjust insulin dose per glycemic trends. Hypoglycemic protocol Anemia secondary to acute blood loss. Asymptomatic. Transfuse packed RBC if hemoglobin less than 7 or if patient is symptomatic. Improved Leukocytosis. Worsening. Patient no fever but has some erythema around the abdominal wound. Repeat blood cultures and check C. difficile. Empiric Zosyn FEN. Ct TPN and diet Deconditioning. Continue physical therapy, out of bed DVT prophylaxis patient on heparin drip Navi Monreal MD Nov 19, 2016 12:48
[2016-11-19 13:46] LABS: BLOOD GAS BASE EXCESS 5.5 mmol/L (-2-2); BLOOD GAS CARBOXYHEMOGLOBIN 1.7 % (0-4); BLOOD GAS HCO3 30 mmol/L (22-26); BLOOD GAS O2 HGB SATURATION 94 % (90-100); BLOOD GAS OXYGEN CONTENT 13.4 Vol % (12.0-20.0); BLOOD GAS PCO2 46 mmHg (38-42); BLOOD GAS PO2 89 mmHg (61-120); CRITICAL VALUE NO; TEMP CORR TO 98.6
[2016-11-19 13:47] LABS: DRAW SITE RT RADIAL; LITER FLOW 3 L/M; NUMBER OF ARTERIAL PUNCTURES 1; OXYGEN DEVICE NASAL CANNULA; STAT YES; ULNAR PULSE PRESENT
[2016-11-19] MEDS: PIPERACIL-TAZO 4.5 GM PREMIX 100 ML IV SCH ×2 (14:00→20:50)
--- NOTE | 2016-11-19 14:06 | RADRPT ---
EXAM DATE/TIME: 11/19/2016 13:34 [facility] COMPARISON: CHEST SINGLE AP, July 01, 2015, 11:40. INDICATIONS : Short of breath.. Recent central line placement. MEDICAL HISTORY : Chronic obstructive pulmonary disease. Myocardial infarction. Coronary artery disease SURGICAL HISTORY : Radical cyctoprostatectomy ENCOUNTER: Subsequent ACUITY: 1 week PAIN SCORE: 5/10 LOCATION: chest FINDINGS: A single AP semierect portable view of the chest was obtained and demonstrates interval placement of a nasogastric tube which is seen coursing through the esophagus and into the stomach. There is been p lacement of a right-sided central venous line with the tip projected over the superior vena cava. The re is no evidence of a pneumothorax. There is mild streaky opacity at the lung bases with no consolid ation or effusion. The heart size remains within normal limits with no perihilar edema. Mild atherosc lerotic calcifications are present in the aorta. There are alignment. CONCLUSION: 1. No placement of right central venous line with no evidence of pneumothorax. 2. Interval placement of nasogastric tube. 3. Patchy opacity remains at the lung bases. Orion Aguilera MD on November 19, 2016 at 13:58 Board Certified Radiologist. This report was verified electronically.
[2016-11-19 14:43] LABS: AUTOMATED NEUTROPHIL # 16.6 TH/MM3 (1.8-7.7); BASOPHIL % 0.2 % (0.0-2.0); EOSINOPHIL # 0.1 TH/MM3 (0-0.4); EOSINOPHIL % 0.6 % (0.0-4.0); HEMATOCRIT 22.8 % (39.0-51.0); LYMPH % 5.7 % (9.0-44.0); LYMPHOCYTE # 1.1 TH/MM3 (1.0-4.8); MEAN CELL VOLUME 92.9 FL (80.0-100.0); MEAN CORPUSCULAR HGB CONC 33.4 % (32.0-36.0); MONO % 7.5 % (0.0-8.0); PLATELET COUNT 415 TH/MM3 (150-450); RED BLOOD COUNT 2.45 MIL/MM3 (4.50-5.90); RED CELL DISTRIBUTION WIDTH 14.4 % (11.6-17.2); WHITE BLOOD COUNT 19.3 TH/MM3 (4.0-11.0)
[2016-11-19 14:45] LABS: HEMO FLAGS AUTO DIFF
[2016-11-19] MEDS: MORPHINE SULFATE 4 MG/ML INJ IV PUSH PRN ×2 (14:52→23:24)
[2016-11-19 14:56] LABS: BICARBONATE 32.4 MEQ/L (21.0-32.0); POTASSIUM 4.9 MEQ/L (3.5-5.1)
[2016-11-19 16:40] LABS: MYELOCYTES 1 % (0-0); NEUTROPHIL # MANUAL DIFF 17.9 TH/MM3 (1.8-7.7); POLYS (SEG NEUTROPHILS) 92 % (16-70); WBC DIFF SAMPLE 100
[2016-11-19 16:41] LABS: PLATELET ESTIMATE SMEAR HIGH (NORMAL); PLATELET MORPHOLOGY NORMAL (NORMAL); SCAN/DIFF FINAL DIFF MANUAL
--- NOTE | 2016-11-19 17:16 | HHI.PR ---
Subjective Remarks tolerating liquids. passing some flatus through rectum. Had episode of decrease responsiveness. Denies fevers, chills, nausea. Objective Vital Signs Vital Signs Date Time Temp Pulse Resp B/P Pulse Ox O2 Delivery O2 Flow Rate FiO2 11/19/16 12:31 98.8 80 20 132/94 98 11/19/16 11:30 95 Nasal Cannula 3.00 11/19/16 10:02 90 11/19/16 09:45 87 11/19/16 09:14 97 Nasal Cannula 3.00 11/19/16 08:00 82 11/19/16 07:32 97.0 76 20 131/52 98 11/19/16 07:30 97 3.00 11/19/16 07:00 82 11/19/16 06:00 87 11/19/16 05:00 82 11/19/16 04:00 98.3 86 24 143/67 98 11/19/16 04:00 91 11/19/16 04:00 98 Nasal Cannula 4.00 11/19/16 03:00 86 11/19/16 02:00 88 11/19/16 01:00 92 11/19/16 00:00 90 11/19/16 00:00 96 Nasal Cannula 4.00 11/19/16 00:00 98.3 93 24 138/54 96 11/18/16 23:00 90 11/18/16 22:00 94 11/18/16 21:00 90 11/18/16 20:00 94 11/18/16 20:00 Nasal Cannula 4.00 11/18/16 20:00 98.9 98 26 113/58 98 11/18/16 18:18 135/74 11/18/16 18:00 88 I/O 11/18/16 11/18/16 11/18/16 11/19/16 11/19/16 11/19/16 07:00 15:00 23:00 07:00 15:00 23:00 Intake Total 2280 ml 1221 ml Output Total 1675 ml 800 ml 1375 ml 50 ml Balance -1675 ml 1480 ml -154 ml -50 ml Intake Oral 480 ml 360 ml IV Total 1800 ml 861 ml Output Urine Total 1450 ml 700 ml 1200 ml Stool Total 125 ml 100 ml 175 ml 50 ml Gastric Drainage Total 100 ml # Bowel Movements 0 Result Diagram: 11/19/16 1410 11/19/16 141 Objective Remarks NAD. A/O x 3 CTAB.. irregular. abd soft, mildly distended, tenderness at hernia incision, no peritoneal signs. midline incision draining greenish stool into ostomy. Stoma black superficially , but pink at base. Still appears viable. 1 cm necrotic wound just below umbilicus with stool present. Scrotum less edematous, soft Ext NT. No c/c/e Procedures Radical Cystoprostatectomy, Pelvic LN dissection, Ileal Conduit 11/05/2016 Assessment and Plan Assessment and Plan s/p Radical Cystoprostatectomy, Ileal Conduit with post operative ileus, A- flutter with RVR, enterocutaneous fistula -D/C NGT. Advance diet. Continue TPN. -Repeat Labs. -Send urine for culture. Blood cultures negative. Started Zosyn empirically. -Repeat CT A/P without contrast -CXR, ABG Duncan Huff MD Nov 19, 2016 17:16
[2016-11-19 19:32] LABS: APTT (PATIENT) 35.9 SEC (24.3-30.1)
[2016-11-19] MEDS ORDERED: POTASSIUM CHLORIDE IV-CENTRAL SCH ×9 (20:00)
[2016-11-19] MEDS ORDERED: SODIUM CHLORIDE IV-CENTRAL SCH ×9 (20:00)
[2016-11-19] MEDS ORDERED: FAT EMULSION 20% INJ 250 ML (Twice weekly over 8 hours) IV-CENTRAL SCH ×2 (20:00)
[2016-11-19] MEDS ORDERED: [UNRECOGNIZED DRUG - OTHER] IV-CENTRAL SCH ×9 (20:00)
[2016-11-19] MEDS: POTASSIUM CHLORIDE IV-CENTRAL SCH ×9 (20:50)
[2016-11-19] MEDS: ATORVASTATIN 40 MG TAB PO SCH (20:50)
[2016-11-19] MEDS: [UNRECOGNIZED DRUG - OTHER] IV-CENTRAL SCH ×9 (20:50)
[2016-11-19] MEDS: SODIUM CHLORIDE IV-CENTRAL SCH ×9 (20:50)
--- NOTE | 2016-11-19 21:02 | RADRPT ---
EXAM DATE/TIME: 11/19/2016 20:12 [facility] COMPARISON: CT ABDOMEN & PELVIS W/O CONTRAST, November 14, 2016, 13:13. INDICATIONS : Evaluate for fistula. Post op cystectomy. ORAL CONTRAST: No oral contrast ingested. RADIATION DOSE: 13.60 CTDIvol (mGy) MEDICAL HISTORY : Cardiovascular disease. Hypertension. Carcinoma, bladder. COPD SURGICAL HISTORY : Appendectomy. Umbilical hernia repair Cystectomy ENCOUNTER: [facility] ACUITY: 4 - 6 days PAIN SCALE: 0/10 LOCATION: Bilateral abdomen TECHNIQUE: Volumetric scanning of the abdomen and pelvis was performed. Using automated exposure control and adjustment of the mA and/or kV according to patient size, radiation dose was kept as low as reasonably achievable to obtain optimal diagnostic quality images. FINDINGS: The patient is status post cystectomy. There is an ileal loop in the right lower quadr ant. There are ureteral stents in place. The right ureteral stent extends from the right collecting system into the ureteral stent. The left stent is seen in the proximal left ureter and extends into the ileal stent. There continue to be noah in the midline. There are bowel anastomosis sutures i n the small bowel in the right lower quadrant. Extending from this region there appears to be a colle ction of air extending to the skin surface. This could be secondary to a fistulous track. This is u nchanged from the prior exam. There does appear to be some small bowel extending into the midline inf erior to the skin noah. This is also unchanged. The liver appears grossly normal. There are small calcifications seen in the dependent portion of th e gallbladder likely representing milk of calcium or small gallstones. The gallbladder is not thicken ed. Calcified granulomas are seen in the spleen. The pancreas and adrenal glands are normal. The ki dneys themselves appear grossly normal. Again noted are the ureteral stents. Aortic calcifications are present. Again noted are changes from the cystectomy and likely a prostatectomy. A pelvic mass is not seen. There is some fluid in the surgical bed. This appearance is unchanged. There are patchy areas of density seen in the posterior lung bases bilateral being more prominent on the left. There is a calcified granuloma in the left lower lobe and calcified lymph nodes in the lef t hilum. CONCLUSION: 1. Status post cystectomy with an ileal loop in the right lower quadrant. Ureteral stents are seen th rough the ileal loop bilaterally. No hydronephrosis is seen. 2. 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 This appearance is completely unchanged. There is an adjacent segment of small bowel herniating throu gh this region. This is also unchanged from the prior exam. 3. Bibasilar areas of consolidation or atelectasis. 4. Status post cystectomy and suspected prostatectomy. 5. Evidence of prior granulomatous exposure. Harris Yusuf MD on November 19, 2016 at 20:22 Board Certified Radiologist. This report was verified electronically.
[2016-11-19 23:55] LABS: APTT (PATIENT) 66.8 SEC (24.3-30.1)
[2016-11-20] VITALS (16 sets, daily range): BP systolic 103–134; BP diastolic 45–65; PULSE 68–87; RESP 16–30; TEMP 97.8–98.7; O2SAT 95–100
[2016-11-20] MEDS: PIPERACIL-TAZO 4.5 GM PREMIX 100 ML IV SCH ×4 (01:30→20:14)
[2016-11-20] MEDS: RESP: LEVALBUTEROL HYDROCHLORIDE 1.25 MG/3 ML NEB (SCH) NEB ×4 (03:30→20:56)
[2016-11-20 05:13] LABS: AUTOMATED NEUTROPHIL # 14.4 TH/MM3 (1.8-7.7); BASOPHIL # 0.1 TH/MM3 (0-0.2); BASOPHIL % 0.4 % (0.0-2.0); EOSINOPHIL # 0.2 TH/MM3 (0-0.4); EOSINOPHIL % 1.2 % (0.0-4.0); HEMATOCRIT 21.2 % (39.0-51.0); LYMPH % 9.7 % (9.0-44.0); LYMPHOCYTE # 1.7 TH/MM3 (1.0-4.8); MEAN CELL VOLUME 92.6 FL (80.0-100.0); MEAN CORPUSCULAR HEMOGLOBIN 31.7 PG (27.0-34.0); MEAN CORPUSCULAR HGB CONC 34.3 % (32.0-36.0); MONO % 6.8 % (0.0-8.0); NEUT % 81.9 % (16.0-70.0); PLATELET COUNT 402 TH/MM3 (150-450); RED BLOOD COUNT 2.29 MIL/MM3 (4.50-5.90); RED CELL DISTRIBUTION WIDTH 14.3 % (11.6-17.2); WHITE BLOOD COUNT 17.6 TH/MM3 (4.0-11.0)
[2016-11-20 05:16] LABS: HEMO FLAGS AUTO DIFF
[2016-11-20 05:29] LABS: APTT (PATIENT) 99.3 SEC (24.3-30.1)
[2016-11-20 05:37] LABS: BICARBONATE 31.1 MEQ/L (21.0-32.0); MAGNESIUM 2.4 MG/DL (1.5-2.5); POTASSIUM 4.8 MEQ/L (3.5-5.1)
[2016-11-20] MEDS: INSULIN ASPART SUPPLEMENTAL SCALE SQ SCH ×4 (05:49→20:40)
[2016-11-20 07:02] LABS: BANDS 17 % (0-6); METAMYELOCYTES 3 % (0-1); MYELOCYTES 1 % (0-0); NEUTROPHIL # MANUAL DIFF 15.8 TH/MM3 (1.8-7.7); POLYS (SEG NEUTROPHILS) 69 % (16-70); WBC DIFF SAMPLE 100
[2016-11-20 07:03] LABS: PLATELET ESTIMATE SMEAR NORMAL (NORMAL); PLATELET MORPHOLOGY NORMAL (NORMAL); SCAN/DIFF FINAL DIFF MANUAL
[2016-11-20 07:25] LABS: APTT (PATIENT) 60.3 SEC (24.3-30.1)
[2016-11-20] MEDS ORDERED: INSULIN DETEMIR 100 UNITS/ML VIAL SQ ONE (07:45)
--- NOTE | 2016-11-20 08:15 | HHI.PR ---
Subjective Remarks Follow-up hyperglycemia. Patient has no complaints. He states he doesn't know what happened to him yesterday thinks he might have just been sleepy. Discussed with RN, increase insulin in TPN bag and will give one-time dose of Levemir. We'll clarify with if TPN will be continued. Check prealbumin. Objective Vitals Vital Signs Date Time Temp Pulse Resp B/P Pulse Ox O2 Delivery O2 Flow Rate FiO2 11/20/16 06:00 72 11/20/16 04:00 97.9 69 24 107/45 99 11/20/16 04:00 69 11/20/16 03:00 100 Nasal Cannula 3.00 11/20/16 02:00 68 11/20/16 00:00 75 11/20/16 00:00 97.9 75 26 103/49 96 11/19/16 23:00 100 Nasal Cannula 3.00 11/19/16 22:26 99 Nasal Cannula 3.00 11/19/16 22:00 74 11/19/16 20:00 97.5 78 36 111/56 100 11/19/16 20:00 72 11/19/16 19:00 100 Nasal Cannula 3.00 11/19/16 18:00 76 11/19/16 17:00 98.4 72 22 104/41 98 11/19/16 17:00 100 Nasal Cannula 3.00 35 11/19/16 12:31 98.8 80 20 132/94 98 11/19/16 11:30 95 Nasal Cannula 3.00 11/19/16 10:02 90 11/19/16 09:45 87 11/19/16 09:14 97 Nasal Cannula 3.00 I/O 11/19/16 11/19/16 11/19/16 11/20/16 11/20/16 11/20/16 07:00 15:00 23:00 07:00 15:00 23:00 Intake Total 1221 ml 1227 ml 1302 ml Output Total 1375 ml 50 ml 750 ml 350 ml Balance -154 ml -50 ml 477 ml 952 ml Intake Oral 360 ml 0 ml 210 ml IV Total 861 ml 102 ml 290 ml TPN/PPN 1125 ml 552 ml Lipid 250 ml Output Urine Total 1200 ml Stool Total 175 ml 50 ml 0 ml 0 ml Drainage Total 750 ml 350 ml # Bowel Movements 0 0 0 Result Diagram: 11/20/16 0500 11/20/16 0500 Objective Remarks GENERAL: Alert, oriented x 3, NAD. On nasal cannula. SKIN: Warm and dry. HEAD: Normocephalic. EYES: No scleral icterus. No injection or drainage. NECK: Supple, trachea midline. No JVD or lymphadenopathy. CARDIOVASCULAR: Irregularly irregular RESPIRATORY: Breath sounds equal bilaterally. No accessory muscle use. GASTROINTESTINAL: Abdomen soft with ileal conduit and ostomy bag. Some erythema surrounding wounds. Improving scrotal swelling MUSCULOSKELETAL: No cyanosis, or edema. BACK: Nontender without obvious deformity. No CVA tenderness. Procedures 11/05/2016 Symptomatic large supraumbilical hernia. Bladder cancer requiring radical cystectomy. 11/08/2016 1. Radical cystoprostatectomy with ileal conduit. 2. Bilateral pelvic lymph node dissection. Right IJ central line A/P Problem List: (1) Acute exacerbation of chronic obstructive pulmonary disease (COPD) ICD Code: J44.1 Status: Acute (2) Bladder cancer ICD Code: C67.9 Status: Acute (3) HTN (hypertension) ICD Code: I10 Status: Acute (4) Atrial flutter ICD Code: I48.92 Status: Acute Assessment and Plan Mr. Edwards is a pleasant 70-year-old male with a history of bladder cancer, COPD, hypertension who underwent radical cystoprostatectomy, umbilical hernia repair during this admission. Hospitalist service was consulted for COPD exacerbation as well as general medical management. He developed atrial flutter with RVR. Patient was transferred to [facility]. - Bladder cancer - status post radical cystoscopy prostatectomy. Management per urology. - Acute exacerbation of COPD - Patient is requiring 3-4 L of oxygen. Tolerating BiPAP well. Continue PRN BiPAP and BiPAP at night. - S/p levofloxacin - Breathing treatment with Xopenex every 4 hours while awake - ileus vs Partial small bowel obstruction. Improved - NGT has been clamped - Developed enterocutaneous fistula. Tolerating regular diet. Continue TPN per . Check prealbumin. We'll start IV fluid if TPN discontinued - Atrial flutter with RVR - [id number] score 2 (Age, Hx of HTN). -Status post Cardizem drip. Continue by mouth Cardizem - Cardiology evaluated patient - currently patient is on Cardizem status post Amiodarone drip. - Continue Heparin drip started by cardiology. Future anticoagulation with one of the newer anticoagulants would be an option such as Apixaban. Pros and cons of anticoagulation discussed with patient and . He will make a decision of what agent to use either aspirin, Coumadin or novel agents - Hypertension - currently well controlled without any medication. Patient apparently takes Micardis at home. - We'll continue to monitor. If indicated will restart patient's home medication. Hypokalemia. Replace. Repeat BMP and magnesium in the morning Hyperglycemia secondary to TPN. Increase to 40 units units regular insulin per TPN bag and hi dose sliding scale, Levemir 10 units 1. We'll adjust insulin dose per glycemic trends. Hypoglycemic protocol Anemia secondary to acute blood loss. Asymptomatic. Transfuse packed RBC if hemoglobin less than 7 or if patient is symptomatic. Improved Leukocytosis. Worsening. Patient no fever but has some erythema around the abdominal wound. Repeat blood cultures and check C. difficile. Empiric Zosyn FEN. Ct TPN and diet Deconditioning. Continue physical therapy, out of bed DVT prophylaxis patient on heparin drip Navi Monreal MD Nov 20, 2016 08:15
[2016-11-20] MEDS: PANTOPRAZOLE SOD 40 MG DELAYED RELEASE TAB PO SCH (08:38)
[2016-11-20] MEDS: FUROSEMIDE 40 MG/4 ML VIAL IV PUSH SCH (08:38)
[2016-11-20] MEDS: CETIRIZINE HCL 10 MG TAB PO SCH (08:38)
[2016-11-20] MEDS: DILTIAZEM HCL 30 MG TAB PO SCH ×5 (08:38→20:15)
[2016-11-20] MEDS: LOSARTAN 50 MG TAB PO SCH ×2 (08:38→09:00)
[2016-11-20] MEDS: POTASSIUM CHLORIDE 20 MEQ CONTROLLED RELEASE TAB PO SCH ×2 (08:38→20:15)
[2016-11-20] MEDS: MUPIROCIN 2% OINT 1 APPLIC/GM SYR EACH NARE SCH ×2 (08:39→20:15)
[2016-11-20] MEDS: BUDESONIDE-FORMOTEROL 160/4.5 MCG INHALER INH SCH ×2 (08:39→21:00)
[2016-11-20] MEDS: SODIUM CHLORIDE 0.9% FLUSH 5 ML FLUSH IVF SCH (08:39)
[2016-11-20] MEDS: SPIRIVA RESPIMAT INH SCH (08:39)
--- NOTE | 2016-11-20 14:48 | HHI.PR ---
Subjective Remarks no acute issues overnight. NG tube out. Passing flatus, stool through both rectum and abdominal incision. Denies chest pain, fevers. Holding regular food down. BP lower today. [place] lightheaded, dizzy standing up. Positive for orthostatic hypotension. Objective Vital Signs Vital Signs Date Time Temp Pulse Resp B/P Pulse Ox O2 Delivery O2 Flow Rate FiO2 11/20/16 09:29 96 Nasal Cannula 3.00 11/20/16 06:00 72 11/20/16 04:00 97.9 69 24 107/45 99 11/20/16 04:00 69 11/20/16 03:00 100 Nasal Cannula 3.00 11/20/16 02:00 68 11/20/16 00:00 75 11/20/16 00:00 97.9 75 26 103/49 96 11/19/16 23:00 100 Nasal Cannula 3.00 11/19/16 22:26 99 Nasal Cannula 3.00 11/19/16 22:00 74 11/19/16 20:00 97.5 78 36 111/56 100 11/19/16 20:00 72 11/19/16 19:00 100 Nasal Cannula 3.00 11/19/16 18:00 76 11/19/16 17:00 98.4 72 22 104/41 98 11/19/16 17:00 100 Nasal Cannula 3.00 35 I/O 11/19/16 11/19/16 11/19/16 11/20/16 11/20/16 11/20/16 07:00 15:00 23:00 07:00 15:00 23:00 Intake Total 1221 ml 1227 ml 1302 ml Output Total 1375 ml 50 ml 750 ml 350 ml Balance -154 ml -50 ml 477 ml 952 ml Intake Oral 360 ml 0 ml 210 ml IV Total 861 ml 102 ml 290 ml TPN/PPN 1125 ml 552 ml Lipid 250 ml Output Urine Total 1200 ml Stool Total 175 ml 50 ml 0 ml 0 ml Drainage Total 750 ml 350 ml # Bowel Movements 0 0 0 Result Diagram: 11/20/16 0500 11/20/16 0500 Objective Remarks NAD. A/O x 3 CTAB.. irregular. abd soft, mildly distended, tenderness at hernia incision, no peritoneal signs. midline incision draining greenish stool into ostomy. Stoma black superficially , but pink at base. Still appears viable. 1 cm necrotic wound just below umbilicus with stool present. Scrotum less edematous, soft Ext NT. No c/c/e Procedures Radical Cystoprostatectomy, Pelvic LN dissection, Ileal Conduit 11/05/2016 Assessment and Plan Assessment and Plan s/p Radical Cystoprostatectomy, Ileal Conduit with post operative ileus, A- flutter with RVR, enterocutaneous fistula -Continue regular diet -Renew TPN -Will Transfuse 1 PRBC -Monitor Blood glucose -PT/OT. Will likely need inpatient rehab. -Appreciate other service input. Duncan Huff MD Nov 20, 2016 14:48
[2016-11-20 15:09] LABS: APTT (PATIENT) 39.7 SEC (24.3-30.1)
--- NOTE | 2016-11-20 15:20 | HHI.PR ---
Subjective Subjective Notes Resting in bed Seen with RN Adolfo and RN Kristin at bedside Objective Vitals/I&O Vital Signs Date Time Temp Pulse Resp B/P Pulse Ox O2 Delivery O2 Flow Rate FiO2 11/20/16 09:29 96 Nasal Cannula 3.00 11/20/16 06:00 72 11/20/16 04:00 97.9 24 107/45 11/19/16 17:00 35 Labs Laboratory Tests Test 11/19/16 11/19/16 11/20/16 11/20/16 18:00 23:30 05:00 06:45 Activated Partial 35.9 66.8 99.3 60.3 Thromboplast Time White Blood Count 17.6 Red Blood Count 2.29 Hemoglobin 7.3 Hematocrit 21.2 Mean Corpuscular Volume 92.6 Mean Corpuscular Hemoglobin 31.7 Mean Corpuscular Hemoglobin 34.3 Concent Red Cell Distribution Width 14.3 Platelet Count 402 Mean Platelet Volume 7.6 Neutrophils (%) (Auto) 81.9 Lymphocytes (%) (Auto) 9.7 Monocytes (%) (Auto) 6.8 Eosinophils (%) (Auto) 1.2 Basophils (%) (Auto) 0.4 Neutrophils # (Auto) 14.4 Lymphocytes # (Auto) 1.7 Monocytes # (Auto) 1.2 Eosinophils # (Auto) 0.2 Basophils # (Auto) 0.1 CBC Comment AUTO DIFF Differential Total Cells 100 Counted Neutrophils % (Manual) 69 Band Neutrophils % 17 Lymphocytes % 6 Monocytes % 4 Neutrophils # (Manual) 15.8 Metamyelocytes 3 Myelocytes 1 Differential Comment FINAL DIFF MANUAL Platelet Estimate NORMAL Platelet Morphology Comment NORMAL Sodium Level 128 Potassium Level 4.8 Chloride Level 92 Carbon Dioxide Level 31.1 Anion Gap 5 Blood Urea Nitrogen 30 Creatinine 1.11 Estimat Glomerular Filtration 65 Rate Random Glucose 266 Calcium Level 7.7 Magnesium Level 2.4 Prealbumin 9 Test 11/20/16 14:00 Activated Partial 39.7 Thromboplast Time Date/Time Procedure Status Source Growth 11/19/16 14:40 Urine Culture - Final Complete Urine Catheterized Urine 50-100,000 CFU/ML MIXED RASTA... 11/18/16 07:40 Aerobic Blood Culture - Preliminary Resulted Blood Line NO GROWTH IN 2 DAYS 11/18/16 07:40 Anaerobic Blood Culture - Preliminary Resulted Blood Line NO GROWTH IN 2 DAYS Cardiovascular: Regular Lungs: Clear Abdomen: Other (midline incision with three opening--wound manager army in place with stool in bag---hooked to drainage bag; urostomy with urine ) Extremities: Other (generalized edema ) A/P Assessment and Plan 70 year old male s/p radical cystectomy and ileo conduit (by Urology); s/p UHR ( by General Surgery) -Post op ileus. -Continue wound management bag for wound drainage and connect to wound draining bag; Wound Care team following -on PO diet -Encourage mobilization I CERTIFY AND ATTEST THAT I PERSONALLY EXAMINED THIS PATIENT IN HIS ROOM. I DIRECTED MS REYES TO DOCUMENT OUR VISIT AND ENTER THE ORDERS IN THE EMR. PAULO MOJICA MD [facility] Annika ReyesP Nov 20, 2016 15:20 Paulo Mojica MD Nov 25, 2016 10:30
[2016-11-20] MEDS ORDERED: DILTIAZEM INJ 125 MG in SODIUM CHLORIDE 0.9% INJ 100 ML IV PRN (16:30)
[2016-11-20] MEDS: SODIUM CHLORIDE IV-CENTRAL SCH ×9 (20:00)
[2016-11-20] MEDS ORDERED: SODIUM CHLORIDE IV-CENTRAL SCH ×9 (20:00)
[2016-11-20] MEDS: [UNRECOGNIZED DRUG - OTHER] IV-CENTRAL SCH ×9 (20:00)
[2016-11-20] MEDS: POTASSIUM CHLORIDE IV-CENTRAL SCH ×9 (20:00)
[2016-11-20] MEDS ORDERED: POTASSIUM CHLORIDE IV-CENTRAL SCH ×9 (20:00)
[2016-11-20] MEDS ORDERED: [UNRECOGNIZED DRUG - OTHER] IV-CENTRAL SCH ×9 (20:00)
[2016-11-20] MEDS: ATORVASTATIN 40 MG TAB PO SCH (20:15)
[2016-11-20] MEDS: CALCIUM CARBONATE 500 MG CHEWABLE TAB CHEW PRN (20:43)
[2016-11-20] MEDS: MORPHINE SULFATE 4 MG/ML INJ IV PUSH PRN (22:13)
[2016-11-21] VITALS (14 sets, daily range): BP systolic 118–138; BP diastolic 51–65; PULSE 67–78; RESP 23–30; TEMP 97.8–99; O2SAT 93–99
[2016-11-21 00:07] LABS: APTT (PATIENT) 41.5 SEC (24.3-30.1)
[2016-11-21] MEDS: PIPERACIL-TAZO 4.5 GM PREMIX 100 ML IV SCH ×2 (01:03→08:06)
[2016-11-21] MEDS: MORPHINE SULFATE 4 MG/ML INJ IV PUSH PRN ×2 (02:23→20:40)
[2016-11-21] MEDS: CALCIUM CARBONATE 500 MG CHEWABLE TAB CHEW PRN (02:23)
[2016-11-21] MEDS: RESP: LEVALBUTEROL HYDROCHLORIDE 1.25 MG/3 ML NEB (SCH) NEB ×4 (03:04→20:35)
[2016-11-21] MEDS: HEPARIN 25,000 UNITS-D5W 250 ML - PREMIX IV SCH ×2 (03:52→19:30)
[2016-11-21 05:17] LABS: AUTOMATED NEUTROPHIL # 10.6 TH/MM3 (1.8-7.7); BASOPHIL # 0.1 TH/MM3 (0-0.2); BASOPHIL % 0.5 % (0.0-2.0); EOSINOPHIL # 0.2 TH/MM3 (0-0.4); EOSINOPHIL % 1.4 % (0.0-4.0); HEMATOCRIT 24.9 % (39.0-51.0); LYMPH % 9.4 % (9.0-44.0); LYMPHOCYTE # 1.3 TH/MM3 (1.0-4.8); MEAN CELL VOLUME 92.3 FL (80.0-100.0); MEAN CORPUSCULAR HEMOGLOBIN 30.7 PG (27.0-34.0); MEAN CORPUSCULAR HGB CONC 33.2 % (32.0-36.0); MONO % 9.3 % (0.0-8.0); NEUT % 79.4 % (16.0-70.0); PLATELET COUNT 398 TH/MM3 (150-450); RED CELL DISTRIBUTION WIDTH 14.8 % (11.6-17.2); WHITE BLOOD COUNT 13.3 TH/MM3 (4.0-11.0)
[2016-11-21 05:20] LABS: BICARBONATE 29.2 MEQ/L (21.0-32.0); MAGNESIUM 2.5 MG/DL (1.5-2.5); POTASSIUM 5.5 MEQ/L (3.5-5.1)
[2016-11-21 05:36] LABS: HEMO FLAGS AUTO DIFF
[2016-11-21] MEDS ORDERED: INSULIN DETEMIR 100 UNITS/ML VIAL SQ ONE (06:00)
[2016-11-21 06:08] LABS: APTT (PATIENT) 58.2 SEC (24.3-30.1)
[2016-11-21] MEDS ORDERED: [UNRECOGNIZED DRUG - OTHER] IV-CENTRAL SCH ×18 (06:15→20:00)
[2016-11-21] MEDS ORDERED: SODIUM CHLORIDE IV-CENTRAL SCH ×18 (06:15→20:00)
[2016-11-21] MEDS ORDERED: POTASSIUM CHLORIDE IV-CENTRAL SCH ×18 (06:15→20:00)
[2016-11-21] MEDS: INSULIN ASPART SUPPLEMENTAL SCALE SQ SCH ×4 (06:45→20:41)
[2016-11-21 07:07] LABS: BANDS 8 % (0-6); EOSINOPHILS 2 % (0-4); METAMYELOCYTES 1 % (0-1); MYELOCYTES 4 % (0-0); NEUTROPHIL # MANUAL DIFF 10.6 TH/MM3 (1.8-7.7); POLYS (SEG NEUTROPHILS) 67 % (16-70); WBC DIFF SAMPLE 100
[2016-11-21 07:08] LABS: PLATELET ESTIMATE SMEAR NORMAL (NORMAL); PLATELET MORPHOLOGY NORMAL (NORMAL); SCAN/DIFF FINAL DIFF MANUAL
[2016-11-21] MEDS: CETIRIZINE HCL 10 MG TAB PO SCH (08:06)
[2016-11-21] MEDS: PANTOPRAZOLE SOD 40 MG DELAYED RELEASE TAB PO SCH (08:06)
[2016-11-21] MEDS: MUPIROCIN 2% OINT 1 APPLIC/GM SYR EACH NARE SCH (08:06)
[2016-11-21] MEDS: BUDESONIDE-FORMOTEROL 160/4.5 MCG INHALER INH SCH ×2 (08:06→20:18)
[2016-11-21] MEDS: DILTIAZEM HCL 30 MG TAB PO SCH ×4 (08:06→20:17)
[2016-11-21] MEDS: SODIUM CHLORIDE 0.9% FLUSH 5 ML FLUSH IVF SCH (08:07)
[2016-11-21] MEDS: SPIRIVA RESPIMAT INH SCH (09:00)
--- NOTE | 2016-11-21 10:21 | HHI.PR ---
Subjective Remarks Follow-up hyperglycemia. Improving hyperglycemia on Levemir and regular insulin in TPN bag. Antihypertensives on hold secondary to orthostatic vital signs. Patient feels better without dizziness or chest pain though he has not been out of bed yet. Discussed with RN to repeat orthostatics as well as BMP at 12 noon secondary to hyperkalemia. The potassium has been discontinued. Discussed with pharmacy to decrease potassium to 40 mEq in TPN bag. Objective Vitals Vital Signs Date Time Temp Pulse Resp B/P Pulse Ox O2 Delivery O2 Flow Rate FiO2 11/21/16 10:00 69 11/21/16 08:00 Nasal Cannula 3.00 11/21/16 08:00 98.6 70 23 133/62 99 11/21/16 08:00 70 11/21/16 07:54 99 Nasal Cannula 3.00 11/21/16 06:00 69 11/21/16 04:00 69 11/21/16 04:00 97.8 69 26 135/51 97 11/21/16 03:00 100 Nasal Cannula 3.00 11/21/16 02:00 78 11/21/16 00:00 98.8 78 28 138/64 99 11/21/16 00:00 78 11/20/16 23:00 99 Nasal Cannula 3.00 11/20/16 22:00 75 11/20/16 20:57 96 Nasal Cannula 3.00 11/20/16 20:00 98.0 83 25 134/60 95 11/20/16 20:00 98.0 83 25 134/60 95 11/20/16 20:00 83 11/20/16 19:00 95 Nasal Cannula 3.00 11/20/16 18:00 74 11/20/16 17:55 97.8 87 16 106/65 98 11/20/16 17:40 97.8 81 22 119/58 96 11/20/16 16:00 76 11/20/16 16:00 98.7 78 20 110/59 100 11/20/16 15:00 96 Nasal Cannula 3.00 11/20/16 14:00 84 11/20/16 12:00 72 11/20/16 12:00 98.0 72 29 113/55 98 11/20/16 11:00 96 Nasal Cannula 3.00 I/O 2/16/17 2/1611/20/16 11/21/16 11/21/16 11/21/16 07:00 15:00 23:00 07:00 15:00 23:00 Intake Total 1302 ml 1357 ml 1412 ml 964 ml Output Total 350 ml 2150 ml 880 ml 675 ml Balance 952 ml -793 ml 532 ml 289 ml Intake Oral 210 ml 240 ml 120 ml 120 ml IV Total 290 ml 340 ml 342 ml 276 ml TPN/PPN 552 ml 777 ml 500 ml 568 ml Lipid 250 ml Packed Cells 450 ml Output Urine Total 1450 ml Stool Total 0 ml 350 ml 230 ml 200 ml Drainage Total 350 ml 350 ml 650 ml 475 ml # Bowel Movements 0 0 Result Diagram: 11/21/1644911/21/16449 Imaging Last Impressions Chest X-Ray 11/19/16 0000 Signed Impressions: Service Date/Time: Saturday, November 19, 2016 13:34 - CONCLUSION: 1. No placement of right central venous line with no evidence of pneumothorax. 2. Interval placement of nasogastric tube. 3. Patchy opacity remains at the lung bases. Orion Aguilera MD Abdomen/Pelvis CT 11/19/16 0000 Signed Impressions: Service Date/Time: Saturday, November 19, 2016 20:12 - CONCLUSION: 1. Status post cystectomy with an ileal loop in the right lower quadrant. Ureteral stents are seen through the ileal loop bilaterally. No hydronephrosis is seen. 2. 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 This appearance is completely unchanged. There is an adjacent segment of small bowel herniating through this region. This is also unchanged from the prior exam. 3. Bibasilar areas of consolidation or atelectasis. 4. Status post cystectomy and suspected prostatectomy. 5. Evidence of prior granulomatous exposure. Harris Yusuf MD Central Venous Line 11/14/16 0000 Signed Impressions: Service Date/Time: Monday, November 14, 2016 16:07 - CONCLUSION: Uncomplicated line placement as above. Mando Rodriguez MD CT Angiography 11/12/16 0000 Signed Impressions: Service Date/Time: Saturday, November 12, 2016 04:09 - CONCLUSION: 1. No evidence for pulmonary embolism. 2. Abnormal patchy areas of pulmonary consolidation are noted as described above. Small pleural effusions. 3. Emphysema. Timmy Jacobson MD Lower Extremity Ultrasound 11/11/16 Signed Impressions: Service Date/Time: Friday, November 11, 2016 10:03 - CONCLUSION: Negative exam with no evidence of deep venous thrombosis. Orion Aguilera MD Abdomen X-Ray 11/11/16 Signed Impressions: Service Date/Time: Friday, November 11, 2016 17:02 - CONCLUSION: 1. Air distention of small bowel loops in the left upper abdominal quadrant with decompression of the visualized portions of the colon. Pattern is concerning for possible early small bowel obstruction versus focal hypodynamic ileus. This study will serve as a baseline for followup imaging. 2. Postsurgical changes characteristic of ileal conduit with bilateral double-J stents terminating in the right lower abdominal quadrant. Mando Rodriguez MD Objective Remarks GENERAL: Alert, oriented x 3, NAD. On nasal cannula. SKIN: Warm and dry. HEAD: Normocephalic. EYES: No scleral icterus. No injection or drainage. NECK: Supple, trachea midline. No JVD or lymphadenopathy. CARDIOVASCULAR: Irregularly irregular RESPIRATORY: Breath sounds equal bilaterally. No accessory muscle use. GASTROINTESTINAL: Abdomen soft with ileal conduit and ostomy bag. Some erythema surrounding wounds. Improving scrotal swelling MUSCULOSKELETAL: No cyanosis, or edema. BACK: Nontender without obvious deformity. No CVA tenderness. Nonfocal Procedures 11/05/2016 Symptomatic large supraumbilical hernia. Bladder cancer requiring radical cystectomy. 11/08/2016 1. Radical cystoprostatectomy with ileal conduit. 2. Bilateral pelvic lymph node dissection. Right IJ central line A/P Problem List: (1) Acute exacerbation of chronic obstructive pulmonary disease (COPD) ICD Code: J44.1 Status: Acute (2) Bladder cancer ICD Code: C67.9 Status: Acute (3) HTN (hypertension) ICD Code: I10 Status: Acute (4) Atrial flutter ICD Code: I48.92 Status: Acute Assessment and Plan Mr. Edwards is a pleasant 70-year-old male with a history of bladder cancer, COPD, hypertension who underwent radical cystoprostatectomy, umbilical hernia repair during this admission. Hospitalist service was consulted for COPD exacerbation as well as general medical management. He developed atrial flutter with RVR. Patient was transferred to [facility]. - Bladder cancer - status post radical cystoscopy prostatectomy. Management per urology. - Acute exacerbation of COPD. Improving - Patient is requiring 2-3 L of oxygen. Continue PRN BiPAP and BiPAP at night. - S/p levofloxacin - Breathing treatment with Xopenex every 4 hours while awake - ileus vs Partial small bowel obstruction. Improved - NGT has been clamped - Developed enterocutaneous fistula. Tolerating regular diet. Continue TPN per . Low prealbumin. We'll start IV fluid if TPN discontinued - Atrial flutter with RVR - [id number] score 2 (Age, Hx of HTN). - Status post Cardizem drip. Continue by mouth Cardizem - Cardiology evaluated patient - currently patient is on Cardizem status post Amiodarone drip. - Continue Heparin drip started by cardiology. Future anticoagulation with one of the newer anticoagulants would be an option such as Apixaban. Pros and cons of anticoagulation discussed with patient and . He will make a decision of what agent to use either aspirin, Coumadin or novel agents - Hypertension -Patient apparently takes Micardis at home. He isn't orthostatic secondary to anemia and BP meds. Patient received one unit packed RBC overnight. Repeat labs pending. We'll also repeat orthostatic vital signs - We'll continue to monitor. Hypokalemia. Replaced. Now hyperkalemic will discontinue potassium supplementation. Repeat BMP and magnesium in the morning. Telemetry without findings consistent with hyperkalemia Hyperglycemia secondary to TPN. Improving continue 40 units units regular insulin per TPN bag and hi dose sliding scale, Levemir 10 units 1. We'll adjust insulin dose per glycemic trends. Hypoglycemic protocol Anemia secondary to acute blood loss. Transfuse packed RBC if hemoglobin less than 7 or if patient is symptomatic. Repeat labs pending Leukocytosis. Patient no fever but has some erythema around the abdominal wound. Repeat blood cultures and check C. difficile. Improving continue Empiric Zosyn Fluid overload. Restart low-dose IV Lasix if not orthostatic. FEN. Ct TPN and diet Deconditioning. Continue physical therapy, out of bed DVT prophylaxis patient on heparin drip Discharge Planning Patient not stable for discharge Navi Monreal MD Nov 21, 2016 10:20
--- NOTE | 2016-11-21 13:02 | HHI.PR ---
Subjective Remarks feels better today. Tolerating regular diet. Passing flatus, stool per rectum. Has not been OOB. Lasix stopped due to BP issues. Received 1 PRBC yesterday. SOB improved. Objective Vital Signs Vital Signs Date Time Temp Pulse Resp B/P Pulse Ox O2 Delivery O2 Flow Rate FiO2 11/21/16 10:00 69 11/21/16 08:00 Nasal Cannula 3.00 11/21/16 08:00 98.6 70 23 133/62 99 11/21/16 08:00 70 11/21/16 07:54 99 Nasal Cannula 3.00 11/21/16 06:00 69 11/21/16 04:00 69 11/21/16 04:00 97.8 69 26 135/51 97 11/21/16 03:00 100 Nasal Cannula 3.00 11/21/16 02:00 78 11/21/16 00:00 98.8 78 28 138/64 99 11/21/16 00:00 78 11/20/16 23:00 99 Nasal Cannula 3.00 11/20/16 22:00 75 11/20/16 20:57 96 Nasal Cannula 3.00 11/20/16 20:00 98.0 83 25 134/60 95 11/20/16 20:00 98.0 83 25 134/60 95 11/20/16 20:00 83 11/20/16 19:00 95 Nasal Cannula 3.00 11/20/16 18:00 74 11/20/16 17:55 97.8 87 16 106/65 98 11/20/16 17:40 97.8 81 22 119/58 96 11/20/16 16:00 76 11/20/16 16:00 98.7 78 20 110/59 100 11/20/16 15:00 96 Nasal Cannula 3.00 11/20/16 14:00 84 I/O 11/20/16 11/20/16 11/20/16 11/21/16 11/21/16 11/21/16 07:00 15:00 23:00 07:00 15:00 23:00 Intake Total 1302 ml 1357 ml 1412 ml 964 ml Output Total 350 ml 2150 ml 880 ml 675 ml Balance 952 ml -793 ml 532 ml 289 ml Intake Oral 210 ml 240 ml 120 ml 120 ml IV Total 290 ml 340 ml 342 ml 276 ml TPN/PPN 552 ml 777 ml 500 ml 568 ml Lipid 250 ml Packed Cells 450 ml Output Urine Total 1450 ml Stool Total 0 ml 350 ml 230 ml 200 ml Drainage Total 350 ml 350 ml 650 ml 475 ml # Bowel Movements 0 0 Result Diagram: 11/21/1644911/21/16449 Objective Remarks NAD. A/O x 3 CTAB.. irregular. abd soft, mildly distended, tenderness at hernia incision, no peritoneal signs. Abdominal binder in place. midline incision draining greenish stool into ostomy. Stoma black superficially, but pink at base. Still appears viable. 1 cm necrotic wound just below umbilicus with stool present. Scrotum less edematous, soft Ext NT. No c/c/e Procedures Radical Cystoprostatectomy, Pelvic LN dissection, Ileal Conduit 11/05/2016 Assessment and Plan Assessment and Plan s/p Radical Cystoprostatectomy, Ileal Conduit with post operative ileus, A- flutter with RVR, enterocutaneous fistula -Hgb responded appropriately. BP improved. Likely combination of low hgb and BP meds. Lasix stopped per Medicine. -WBC down. Will stop Zosyn. -Continue regular diet. -Renew TPN. Will start to wean next couple days as long as he continues to do well with diet. -Monitor Blood glucose. Insulin sliding scale. -PT/OT. Will likely need inpatient rehab. -Appreciate other service input. Duncan Huff MD Nov 21, 2016 13:02
[2016-11-21 18:02] LABS: BICARBONATE 28.8 MEQ/L (21.0-32.0); MAGNESIUM 2.4 MG/DL (1.5-2.5); POTASSIUM 5.6 MEQ/L (3.5-5.1)
[2016-11-21] MEDS: FUROSEMIDE 40 MG/4 ML VIAL IV PUSH SCH (18:18)
[2016-11-21] MEDS: ATORVASTATIN 40 MG TAB PO SCH (20:17)
[2016-11-21] MEDS: diphenhydrAMINE HCL 25 MG CAP PO PRN (23:34)
[2016-11-22] VITALS (14 sets, daily range): BP systolic 125–143; BP diastolic 58–65; PULSE 68–78; RESP 22–25; TEMP 98.3–98.7; O2SAT 98–100
[2016-11-22] MEDS: RESP: LEVALBUTEROL HYDROCHLORIDE 1.25 MG/3 ML NEB (SCH) NEB ×2 (02:58→09:57)
[2016-11-22 06:41] LABS: APTT (PATIENT) 34.1 SEC (24.3-30.1)
[2016-11-22 06:45] LABS: AUTOMATED NEUTROPHIL # 8.9 TH/MM3 (1.8-7.7); BASOPHIL % 0.4 % (0.0-2.0); EOSINOPHIL # 0.2 TH/MM3 (0-0.4); EOSINOPHIL % 1.4 % (0.0-4.0); HEMATOCRIT 24.1 % (39.0-51.0); LYMPH % 10.8 % (9.0-44.0); LYMPHOCYTE # 1.3 TH/MM3 (1.0-4.8); MEAN CELL VOLUME 91.9 FL (80.0-100.0); MEAN CORPUSCULAR HEMOGLOBIN 30.9 PG (27.0-34.0); MEAN CORPUSCULAR HGB CONC 33.6 % (32.0-36.0); MONO % 11.2 % (0.0-8.0); NEUT % 76.2 % (16.0-70.0); PLATELET COUNT 366 TH/MM3 (150-450); RED BLOOD COUNT 2.63 MIL/MM3 (4.50-5.90); RED CELL DISTRIBUTION WIDTH 14.5 % (11.6-17.2); WHITE BLOOD COUNT 11.7 TH/MM3 (4.0-11.0)
[2016-11-22 06:55] LABS: HEMO FLAGS AUTO DIFF
[2016-11-22 07:40] LABS: BICARBONATE 29.5 MEQ/L (21.0-32.0); MAGNESIUM 2.3 MG/DL (1.5-2.5); POTASSIUM 5.3 MEQ/L (3.5-5.1)
[2016-11-22 08:23] LABS: BANDS 13 % (0-6); EOSINOPHILS 1 % (0-4); METAMYELOCYTES 2 % (0-1); MYELOCYTES 3 % (0-0); NEUTROPHIL # MANUAL DIFF 8.8 TH/MM3 (1.8-7.7); POLYS (SEG NEUTROPHILS) 57 % (16-70); WBC DIFF SAMPLE 100
[2016-11-22 08:24] LABS: PLATELET ESTIMATE SMEAR NORMAL (NORMAL); PLATELET MORPHOLOGY NORMAL (NORMAL); SCAN/DIFF FINAL DIFF MANUAL
[2016-11-22] MEDS: PANTOPRAZOLE SOD 40 MG DELAYED RELEASE TAB PO SCH (08:46)
[2016-11-22] MEDS: CETIRIZINE HCL 10 MG TAB PO SCH (08:46)
[2016-11-22] MEDS: DILTIAZEM HCL 30 MG TAB PO SCH ×4 (08:46→20:13)
[2016-11-22] MEDS: FUROSEMIDE 40 MG/4 ML VIAL IV PUSH SCH ×2 (08:46→17:00)
[2016-11-22] MEDS: SODIUM CHLORIDE 0.9% FLUSH 5 ML FLUSH IVF SCH (08:47)
[2016-11-22] MEDS: INSULIN ASPART SUPPLEMENTAL SCALE SQ SCH ×4 (08:47→21:00)
[2016-11-22] MEDS: SPIRIVA RESPIMAT INH SCH (08:47)
[2016-11-22] MEDS ORDERED: INSULIN DETEMIR 100 UNITS/ML VIAL SQ ONE (09:00)
[2016-11-22] MEDS: BUDESONIDE-FORMOTEROL 160/4.5 MCG INHALER INH SCH ×2 (09:52→20:13)
--- NOTE | 2016-11-22 09:58 | HHI.PR ---
Subjective Remarks Follow-up COPD. Slightly short of breath today with wheezing. No more dizziness. Objective Vitals Vital Signs Date Time Temp Pulse Resp B/P Pulse Ox O2 Delivery O2 Flow Rate FiO2 11/22/16 08:00 Nasal Cannula 3.00 11/22/16 08:00 68 11/22/16 08:00 98.3 68 24 135/60 100 11/22/16 06:00 70 11/22/16 04:00 Nasal Cannula 3.00 11/22/16 04:00 70 11/22/16 04:00 98.7 70 25 139/65 99 11/22/16 02:00 78 11/22/16 00:00 98.6 71 25 143/65 100 11/22/16 00:00 Nasal Cannula 3.00 11/22/16 00:00 71 11/21/16 22:00 74 11/21/16 20:35 99 Nasal Cannula 2.50 11/21/16 20:00 74 11/21/16 20:00 99.0 74 30 118/51 97 11/21/16 20:00 Nasal Cannula 3.00 11/21/16 18:00 67 11/21/16 16:00 98.9 68 30 135/60 93 11/21/16 16:00 68 11/21/16 16:00 Nasal Cannula 3.00 11/21/16 14:00 74 11/21/16 12:00 98.6 72 28 122/65 97 11/21/16 12:00 72 11/21/16 12:00 Nasal Cannula 2.00 11/21/16 10:00 69 I/O 11/21/16 11/21/16 11/21/16 11/22/16 11/22/16 11/22/16 07:00 15:00 23:00 07:00 15:00 23:00 Intake Total 964 ml 1322 ml 867 ml 1107 ml Output Total 675 ml 1025 ml 2100 ml 800 ml Balance 289 ml 297 ml -1233 ml 307 ml Intake Oral 120 ml 360 ml 240 ml 240 ml IV Total 276 ml 304 ml 153 ml 206 ml TPN/PPN 568 ml 658 ml 474 ml 661 ml Stool Total 200 ml 200 ml 600 ml 100 ml Drainage Total 475 ml 825 ml 1500 ml 700 ml Result Diagram: 11/22/1660211/22/16602 Objective Remarks GENERAL: Alert, oriented x 3, NAD. On nasal cannula. SKIN: Warm and dry. HEAD: Normocephalic. EYES: No scleral icterus. No injection or drainage. NECK: Supple, trachea midline. No JVD or lymphadenopathy. CARDIOVASCULAR: Irregularly irregular RESPIRATORY: Breath sounds equal bilaterally. No accessory muscle use. GASTROINTESTINAL: Abdomen soft with ileal conduit and ostomy bag. Some erythema surrounding wounds. Improving scrotal swelling MUSCULOSKELETAL: No cyanosis but with improving edema. BACK: Nontender without obvious deformity. No CVA tenderness. Nonfocal Procedures 11/05/2016 Symptomatic large supraumbilical hernia. Bladder cancer requiring radical cystectomy. 11/08/2016 1. Radical cystoprostatectomy with ileal conduit. 2. Bilateral pelvic lymph node dissection. Right IJ central line A/P Problem List: (1) Acute exacerbation of chronic obstructive pulmonary disease (COPD) ICD Code: J44.1 Status: Acute (2) Bladder cancer ICD Code: C67.9 Status: Acute (3) HTN (hypertension) ICD Code: I10 Status: Acute (4) Atrial flutter ICD Code: I48.92 Status: Acute Assessment and Plan Mr. Edwards is a pleasant 70-year-old male with a history of bladder cancer, COPD, hypertension who underwent radical cystoprostatectomy, umbilical hernia repair during this admission. Hospitalist service was consulted for COPD exacerbation as well as general medical management. He developed atrial flutter with RVR. Patient was transferred to [facility]. - Bladder cancer - status post radical cystoscopy prostatectomy. Management per urology. - Acute exacerbation of COPD. Improving - Patient is requiring 2-3 L of oxygen. Continue PRN BiPAP and BiPAP at night. - S/p levofloxacin - Breathing treatment with Xopenex every 4 hours while awake - ileus vs Partial small bowel obstruction. Improved - NGT has been clamped - Developed enterocutaneous fistula. Tolerating regular diet. Continue TPN per . Low prealbumin. We'll start IV fluid if TPN discontinued - Atrial flutter with RVR - [id number] score 2 (Age, Hx of HTN). - Status post Cardizem drip. Continue by mouth Cardizem - Cardiology evaluated patient - currently patient is on Cardizem status post Amiodarone drip. - Continue Heparin drip started by cardiology. Future anticoagulation with one of the newer anticoagulants would be an option such as Apixaban. Pros and cons of anticoagulation discussed with patient and . He will make a decision of what agent to use either aspirin, Coumadin or novel agents - Hypertension -Patient apparently takes Micardis at home. He isn't orthostatic secondary to anemia and BP meds. Patient received one unit packed RBC overnight. Repeat labs pending. We'll also repeat orthostatic vital signs - We'll continue to monitor. Hypokalemia. Replaced. Now hyperkalemic will discontinue potassium supplementation. Repeat BMP and magnesium in the morning. Telemetry without findings consistent with hyperkalemia Hyperglycemia secondary to TPN. Improving continue 40 units units regular insulin per TPN bag and hi dose sliding scale, Levemir 10 units 1. We'll adjust insulin dose per glycemic trends. Hypoglycemic protocol Anemia secondary to acute blood loss. Transfuse packed RBC if hemoglobin less than 7 or if patient is symptomatic. Repeat labs pending Leukocytosis. Patient no fever but has some erythema around the abdominal wound. Repeat blood cultures and check C. difficile. Improving Zosyn has been discontinued by attending Fluid overload. Check BNP. Continue low-dose IV Lasix if not orthostatic. FEN. Ct TPN and diet Deconditioning. Continue physical therapy, out of bed DVT prophylaxis patient on heparin drip Discharge Planning Patient not stable for discharge Navi Monreal MD Nov 22, 2016 09:58
[2016-11-22] MEDS: HEPARIN 25,000 UNITS-D5W 250 ML - PREMIX IV SCH ×2 (10:00→23:09)
[2016-11-22] MEDS: RESP: ALBUTEROL 2.5 MG/IPRATROPIUM 0.5 MG NEB (SCH) NEB ×3 (11:36→20:21)
[2016-11-22 16:01] LABS: APTT (PATIENT) 67.4 SEC (24.3-30.1)
[2016-11-22] MEDS ORDERED: ALTEPLASE RECOMBINANT 2 MG VIAL IV FLUSH SCH (17:15)
[2016-11-22 18:51] LABS: APTT (PATIENT) 61.3 SEC (24.3-30.1)
[2016-11-22] MEDS ORDERED: [UNRECOGNIZED DRUG - OTHER] IV-CENTRAL SCH ×9 (20:00)
[2016-11-22] MEDS ORDERED: [UNRECOGNIZED DRUG - OTHER] IV-CENTRAL SCH ×9 (20:00)
[2016-11-22] MEDS ORDERED: POTASSIUM CHLORIDE IV-CENTRAL SCH ×18 (20:00)
[2016-11-22] MEDS ORDERED: SODIUM CHLORIDE IV-CENTRAL SCH ×18 (20:00)
[2016-11-22] MEDS: ATORVASTATIN 40 MG TAB PO SCH (20:13)
[2016-11-23] VITALS (14 sets, daily range): BP systolic 128–164; BP diastolic 57–70; PULSE 62–80; RESP 24–29; TEMP 97.5–99.1; O2SAT 96–100
[2016-11-23] MEDS: MORPHINE SULFATE 4 MG/ML INJ IV PUSH PRN (04:58)
[2016-11-23 05:28] LABS: AUTOMATED NEUTROPHIL # 6.1 TH/MM3 (1.8-7.7); BASOPHIL # 0.1 TH/MM3 (0-0.2); BASOPHIL % 0.7 % (0.0-2.0); EOSINOPHIL # 0.1 TH/MM3 (0-0.4); EOSINOPHIL % 1.6 % (0.0-4.0); HEMATOCRIT 23.6 % (39.0-51.0); LYMPH % 13.9 % (9.0-44.0); LYMPHOCYTE # 1.2 TH/MM3 (1.0-4.8); MEAN CELL VOLUME 91.5 FL (80.0-100.0); MEAN CORPUSCULAR HEMOGLOBIN 31.6 PG (27.0-34.0); MEAN CORPUSCULAR HGB CONC 34.5 % (32.0-36.0); MONO % 14.6 % (0.0-8.0); NEUT % 69.2 % (16.0-70.0); PLATELET COUNT 333 TH/MM3 (150-450); RED BLOOD COUNT 2.58 MIL/MM3 (4.50-5.90); RED CELL DISTRIBUTION WIDTH 14.3 % (11.6-17.2); WHITE BLOOD COUNT 8.8 TH/MM3 (4.0-11.0)
[2016-11-23 05:36] LABS: BICARBONATE 29.1 MEQ/L (21.0-32.0); MAGNESIUM 2.2 MG/DL (1.5-2.5); POTASSIUM 4.8 MEQ/L (3.5-5.1)
[2016-11-23 05:37] LABS: HEMO FLAGS AUTO DIFF
[2016-11-23 05:43] LABS: APTT (PATIENT) 51.1 SEC (24.3-30.1)
[2016-11-23] MEDS: INSULIN ASPART SUPPLEMENTAL SCALE SQ SCH ×4 (06:23→21:00)
[2016-11-23 08:01] LABS: BANDS 15 % (0-6); BASOPHILS 1 % (0-2); EOSINOPHILS 1 % (0-4); METAMYELOCYTES 1 % (0-1); MYELOCYTES 2 % (0-0); POLYS (SEG NEUTROPHILS) 50 % (16-70); WBC DIFF SAMPLE 100
[2016-11-23 08:02] LABS: PLATELET ESTIMATE SMEAR NORMAL (NORMAL); PLATELET MORPHOLOGY NORMAL (NORMAL); SCAN/DIFF FINAL DIFF MANUAL
[2016-11-23] MEDS: RESP: ALBUTEROL 2.5 MG/IPRATROPIUM 0.5 MG NEB (SCH) NEB ×4 (08:29→19:31)
[2016-11-23] MEDS: BUDESONIDE-FORMOTEROL 160/4.5 MCG INHALER INH SCH ×2 (09:24→20:20)
[2016-11-23] MEDS: SPIRIVA RESPIMAT INH SCH (09:24)
[2016-11-23] MEDS: FUROSEMIDE 40 MG/4 ML VIAL IV PUSH SCH (09:25)
[2016-11-23] MEDS: DILTIAZEM HCL 30 MG TAB PO SCH ×4 (09:25→20:20)
[2016-11-23] MEDS: SODIUM CHLORIDE 0.9% FLUSH 5 ML FLUSH IVF SCH (09:25)
[2016-11-23] MEDS: CETIRIZINE HCL 10 MG TAB PO SCH (09:26)
[2016-11-23] MEDS: PANTOPRAZOLE SOD 40 MG DELAYED RELEASE TAB PO SCH (09:26)
--- NOTE | 2016-11-23 09:30 | HHI.PR ---
Subjective Remarks Follow-up for shortness of breath X Not short of breath, no chest pain, no palpitations. Abdominal pain minimal, 2/ 10, no nausea or vomiting. Good urine output, good fecal output. Has decided with regards to anticoagulation, does not like Coumadin, would like to be in one of the [place] agents. No bleeding. Afebrile. Objective Vitals Vital Signs Date Time Temp Pulse Resp B/P Pulse Ox O2 Delivery O2 Flow Rate FiO2 11/23/16 08:32 100 Nasal Cannula 3.00 11/23/16 08:00 98 Nasal Cannula 3.00 11/23/16 06:00 62 11/23/16 04:00 99.1 70 29 134/58 98 11/23/16 04:00 98 Nasal Cannula 3.00 11/23/16 04:00 70 11/23/16 02:00 72 11/23/16 00:00 98.6 68 26 160/67 98 11/23/16 00:00 68 11/23/16 00:00 98 Nasal Cannula 3.00 11/22/16 22:00 78 11/22/16 20:20 99 Nasal Cannula 3.00 11/22/16 20:00 100 Nasal Cannula 3.00 11/22/16 20:00 98.4 74 22 142/62 99 11/22/16 20:00 74 11/22/16 18:00 72 11/22/16 16:00 Nasal Cannula 3.00 11/22/16 16:00 98.7 78 24 135/58 98 11/22/16 16:00 70 11/22/16 14:00 76 11/22/16 12:00 Nasal Cannula 3.00 11/22/16 12:00 98.6 76 25 125/58 98 11/22/16 12:00 76 11/22/16 10:00 76 11/22/16 09:58 100 Nasal Cannula 3.00 I/O 11/22/16 11/22/16 11/22/16 11/23/16 11/23/16 11/23/16 07:00 15:00 23:00 07:00 15:00 23:00 Intake Total 1107 ml 835 ml 804 ml 1125 ml Output Total 800 ml 1450 ml 1050 ml 1225 ml Balance 307 ml -615 ml -246 ml -100 ml Intake Oral 240 ml 200 ml 400 ml 700 ml IV Total 206 ml 115 ml 109 ml 116 ml TPN/PPN 661 ml 520 ml 295 ml 309 ml Stool Total 100 ml 150 ml 150 ml 350 ml Drainage Total 700 ml 1300 ml 900 ml 875 ml Result Diagram: 11/23/168 11/23/16507 Objective Remarks GENERAL: Alert, oriented x 3, NAD. On nasal cannula. SKIN: Warm and dry. HEAD: Normocephalic. EYES: No scleral icterus. No injection or drainage. NECK: Supple, trachea midline. No JVD or lymphadenopathy. CARDIOVASCULAR: Irregularly irregular, no murmurs appreciated. RESPIRATORY: Occasional wheezing, no crackles. GASTROINTESTINAL: Abdomen soft with ileal conduit and ostomy bag. Clear yellow urine. Some erythema surrounding wounds MUSCULOSKELETAL: Trace edema. BACK: Nontender without obvious deformity. No CVA tenderness. Nonfocal Alert, awake, oriented 3, no focal deficits. Procedures 11/05/2016 Symptomatic large supraumbilical hernia. Bladder cancer requiring radical cystectomy. 11/08/2016 1. Radical cystoprostatectomy with ileal conduit. 2. Bilateral pelvic lymph node dissection. Right IJ central line A/P Problem List: (1) Acute exacerbation of chronic obstructive pulmonary disease (COPD) ICD Code: J44.1 Status: Acute (2) Bladder cancer ICD Code: C67.9 Status: Acute (3) HTN (hypertension) ICD Code: I10 Status: Acute (4) Atrial flutter ICD Code: I48.92 Status: Acute Assessment and Plan Mr. Edwards is a pleasant 70-year-old male with a history of bladder cancer, COPD, hypertension who underwent radical cystoprostatectomy, umbilical hernia repair during this admission. Hospitalist service was consulted for COPD exacerbation as well as general medical management. He developed atrial flutter with RVR. Bladder cancer - status post radical cystoscopy prostatectomy. Status post ileal conduit. Further management per urology, pain control per urology, continue TPN per surgery. Acute exacerbation of-resolved, continue oxygen support, status post Levaquin. Continue bronchodilators. Continue Lasix, switch to oral. Recheck BMP. ileus vs Partial small bowel obstruction. Improved, Developed enterocutaneous fistula. Tolerating regular diet. Continue TPN per . Low prealbumin. Further management per surgery Atrial flutter with RVR - [id number] score 2 (Age, Hx of HTN). Continue oral Cardizem. Status post cardiology evaluation, status post amiodarone. Discussed with patient, agrees with apixaban set of Coumadin. Stop heparin, start apixaban. Hypertension -Patient apparently takes Micardis at home. He isn't orthostatic secondary to anemia and BP meds. Recheck orthostatics, restart Micardis if blood pressure remains elevated Anemia secondary to acute blood loss. Status post transfusion with appropriate response monitor CBC. Leukocytosis. Patient no fever but has some erythema around the abdominal wound. Resolved, Zosyn stopped. Fluid overload - Continue Lasix, switch to oral , -[address] TPN and diet Hyperkalemia-resolved Hyponatremia-could be from hyperlipidemia, Lasix as above, recheck tomorrow. Hyperglycemia secondary to TPN. Improving continue 40 units units regular insulin per TPN bag and high dose sliding scale, We'll adjust insulin dose per glycemic trends. Hypoglycemic protocol Deconditioning. Continue physical therapy, out of bed , consult case management for discharge to [place] DVT prophylaxis patient on heparin drip, switch to eliquis Discharge Planning Discharged to [place] rehabilitation when ready, consult case management. Brayan Crowell MD Nov 23, 2016 09:30
[2016-11-23] MEDS: APIXABAN 5 MG TABLET PO SCH ×2 (10:04→20:20)
[2016-11-23] MEDS: FUROSEMIDE 20 MG TAB PO SCH (18:18)
--- NOTE | 2016-11-23 19:27 | HHI.PR ---
Subjective Remarks s/p Radical cystectomy Doing well, pain controlled. No N/V, tolerating diet. TPN off Objective Vital Signs Vital Signs Date Time Temp Pulse Resp B/P Pulse Ox O2 Delivery O2 Flow Rate FiO2 11/23/16 18:00 79 11/23/16 16:00 74 11/23/16 16:00 96 Nasal Cannula 3.00 11/23/16 16:00 97.5 74 24 130/61 96 11/23/16 14:00 74 11/23/16 12:00 98.9 80 26 140/60 99 11/23/16 12:00 99 Nasal Cannula 3.00 11/23/16 12:00 75 11/23/16 10:00 70 11/23/16 08:32 100 Nasal Cannula 3.00 11/23/16 08:00 68 11/23/16 08:00 98 Nasal Cannula 3.00 11/23/16 08:00 98.3 68 24 128/57 96 11/23/16 06:00 62 11/23/16 04:00 99.1 70 29 134/58 98 11/23/16 04:00 98 Nasal Cannula 3.00 11/23/16 04:00 70 11/23/16 02:00 72 11/23/16 00:00 98.6 68 26 160/67 98 11/23/16 00:00 68 11/23/16 00:00 98 Nasal Cannula 3.00 11/22/16 22:00 78 11/22/16 20:20 99 Nasal Cannula 3.00 11/22/16 20:00 100 Nasal Cannula 3.00 11/22/16 20:00 98.4 74 22 142/62 99 11/22/16 20:00 74 I/O 11/22/16 11/22/16 11/22/16 11/23/16 11/23/16 11/23/16 07:00 15:00 23:00 07:00 15:00 23:00 Intake Total 1107 ml 835 ml 804 ml 1125 ml 858 ml Output Total 800 ml 1450 ml 1050 ml 1225 ml 1400 ml Balance 307 ml -615 ml -246 ml -100 ml -542 ml Intake Oral 240 ml 200 ml 400 ml 700 ml 600 ml IV Total 206 ml 115 ml 109 ml 116 ml 258 ml TPN/PPN 661 ml 520 ml 295 ml 309 ml Stool Total 100 ml 150 ml 150 ml 350 ml 500 ml Drainage Total 700 ml 1300 ml 900 ml 875 ml 900 ml Result Diagram: 11/23/16 0508 11/23/16507 Objective Remarks NAD. A/O x 3 Respiration Nonlabored abd soft, no peritoneal signs. Abdominal binder in place. midline incision draining greenish stool into ostomy with erythema noted around fistula site. Stoma appears viable. Good UOP, clear yellow from Urostomy Ext NT. No c/c/e Procedures Radical Cystoprostatectomy, Pelvic LN dissection, Ileal Conduit 11/05/2016 Assessment and Plan Assessment and Plan s/p Radical Cystoprostatectomy, Ileal Conduit with post operative ileus, A- flutter with RVR, enterocutaneous fistula -Pain well controlled -Continue regular diet. Appears to be doing well, TPN has been weaned off -Monitor Blood glucose. Insulin sliding scale. -PT/OT. Will likely need inpatient rehab. -Appreciate other service input. Manuel Mcguire MD Nov 23, 2016 19:27
[2016-11-23] MEDS: ATORVASTATIN 40 MG TAB PO SCH (20:20)
[2016-11-23] MEDS: oxyCODONE/ACETAMINOPHEN 5 MG/325 MG TAB PO PRN (22:53)
[2016-11-24] VITALS (14 sets, daily range): BP systolic 113–146; BP diastolic 52–67; PULSE 56–90; RESP 14–31; TEMP 98.1–98.7; O2SAT 95–100
[2016-11-24 03:53] LABS: AUTOMATED NEUTROPHIL # 4.5 TH/MM3 (1.8-7.7); BASOPHIL # 0.1 TH/MM3 (0-0.2); BASOPHIL % 1.2 % (0.0-2.0); EOSINOPHIL # 0.1 TH/MM3 (0-0.4); EOSINOPHIL % 1.5 % (0.0-4.0); HEMATOCRIT 24.2 % (39.0-51.0); LYMPH % 17.5 % (9.0-44.0); LYMPHOCYTE # 1.2 TH/MM3 (1.0-4.8); MEAN CELL VOLUME 93.2 FL (80.0-100.0); MEAN CORPUSCULAR HEMOGLOBIN 32.2 PG (27.0-34.0); MEAN CORPUSCULAR HGB CONC 34.5 % (32.0-36.0); MONO % 13.4 % (0.0-8.0); NEUT % 66.4 % (16.0-70.0); PLATELET COUNT 319 TH/MM3 (150-450); RED CELL DISTRIBUTION WIDTH 14.1 % (11.6-17.2); WHITE BLOOD COUNT 6.7 TH/MM3 (4.0-11.0)
[2016-11-24 03:55] LABS: HEMO FLAGS AUTO DIFF
[2016-11-24 04:12] LABS: BICARBONATE 28.1 MEQ/L (21.0-32.0); MAGNESIUM 1.9 MG/DL (1.5-2.5); POTASSIUM 4.9 MEQ/L (3.5-5.1)
[2016-11-24] MEDS: INSULIN ASPART SUPPLEMENTAL SCALE SQ SCH ×4 (06:03→21:53)
[2016-11-24] MEDS: RESP: ALBUTEROL 2.5 MG/IPRATROPIUM 0.5 MG NEB (SCH) NEB ×4 (07:27→22:15)
[2016-11-24 08:58] LABS: BANDS 19 % (0-6); METAMYELOCYTES 1 % (0-1); MYELOCYTES 6 % (0-0); NEUTROPHIL # MANUAL DIFF 5.2 TH/MM3 (1.8-7.7); POLYS (SEG NEUTROPHILS) 51 % (16-70); WBC DIFF SAMPLE 100
[2016-11-24] MEDS: SPIRIVA RESPIMAT INH SCH (09:00)
[2016-11-24] MEDS: BUDESONIDE-FORMOTEROL 160/4.5 MCG INHALER INH SCH (09:00)
[2016-11-24 09:01] LABS: PLATELET ESTIMATE SMEAR NORMAL (NORMAL); PLATELET MORPHOLOGY NORMAL (NORMAL); SCAN/DIFF FINAL DIFF MANUAL
[2016-11-24] MEDS: FUROSEMIDE 20 MG TAB PO SCH ×2 (09:02→17:23)
[2016-11-24] MEDS: SODIUM CHLORIDE 0.9% FLUSH 5 ML FLUSH IVF SCH (09:02)
[2016-11-24] MEDS: APIXABAN 5 MG TABLET PO SCH ×2 (09:02→21:06)
[2016-11-24] MEDS: PANTOPRAZOLE SOD 40 MG DELAYED RELEASE TAB PO SCH (09:02)
[2016-11-24] MEDS: DILTIAZEM HCL 30 MG TAB PO SCH ×4 (09:02→21:05)
[2016-11-24] MEDS: CETIRIZINE HCL 10 MG TAB PO SCH (09:02)
[2016-11-24] MEDS: oxyCODONE/ACETAMINOPHEN 5 MG/325 MG TAB PO PRN (10:44)
--- NOTE | 2016-11-24 14:13 | HHI.PR ---
Subjective Remarks No acute issues. Tolerating diet. Denies N/V/F/C. OOB yesterday. Working with PT. Minimal output from rectum. Still having high output from fistula. Objective Vital Signs Vital Signs Date Time Temp Pulse Resp B/P Pulse Ox O2 Delivery O2 Flow Rate FiO2 11/24/16 12:00 98.2 88 24 113/59 98 11/24/16 12:00 97 Nasal Cannula 3.00 11/24/16 12:00 80 11/24/16 10:00 90 11/24/16 08:00 98.4 66 22 122/60 96 11/24/16 08:00 96 Nasal Cannula 3.00 11/24/16 08:00 69 11/24/16 07:28 98 Nasal Cannula 2.00 11/24/16 06:00 56 11/24/16 04:00 98.1 60 26 125/52 97 11/24/16 04:00 97 Nasal Cannula 3.00 11/24/16 04:00 60 11/24/16 02:00 64 11/24/16 00:00 98 Nasal Cannula 3.00 11/24/16 00:00 98.7 72 31 146/67 98 11/24/16 00:00 72 11/23/16 22:00 74 11/23/16 20:00 76 11/23/16 20:00 97 Nasal Cannula 3.00 11/23/16 20:00 98.5 76 24 164/70 97 11/23/16 19:31 98 Nasal Cannula 3.00 11/23/16 18:00 79 11/23/16 16:00 74 11/23/16 16:00 96 Nasal Cannula 3.00 11/23/16 16:00 97.5 74 24 130/61 96 I/O 11/23/16 11/23/16 11/23/16 11/24/16 11/24/16 11/24/16 07:00 15:00 23:00 07:00 15:00 23:00 Intake Total 1125 ml 858 ml 536 ml 440 ml Output Total 1225 ml 1400 ml 500 ml 750 ml Balance -100 ml -542 ml 36 ml -310 ml Intake Oral 700 ml 600 ml 400 ml 300 ml IV Total 116 ml 258 ml 136 ml 140 ml TPN/PPN 309 ml Stool Total 350 ml 500 ml 50 ml 150 ml Drainage Total 875 ml 900 ml 450 ml 600 ml Result Diagram: 11/24/1632911/24/16329 Objective Remarks NAD. A/O x 3 RRR Respiration Nonlabored abd soft, no peritoneal signs. Abdominal binder in place, wound dressing in place. liquid stool in ostomy bag. Stoma diaz but appears viable. Stents in place Good UOP, clear yellow from Urostomy Ext NT. No c/c/e Procedures Radical Cystoprostatectomy, Pelvic LN dissection, Ileal Conduit 11/05/2016 Assessment and Plan Assessment and Plan s/p Radical Cystoprostatectomy, Ileal Conduit with post operative ileus, A- flutter with RVR, enterocutaneous fistula -Continue Regular diet. If fistula output does not diminish next few days, may need to restart TPN, drop back to clear liquid diet. -Hgb stable. Good renal function -PT/OT. Inpatient rehab soon. -Appreciate all other service input. Duncan Huff MD Nov 24, 2016 14:13
--- NOTE | 2016-11-24 15:39 | HHI.PR ---
Subjective Remarks Follow-up for cardiac issues. Weaned off TPN, no abdominal pain, no bleeding. No chest pain or shortness of breath. Denies abdominal pain. Objective Vitals Vital Signs Date Time Temp Pulse Resp B/P Pulse Ox O2 Delivery O2 Flow Rate FiO2 11/24/16 14:00 78 11/24/16 12:00 98.2 88 24 113/59 98 11/24/16 12:00 97 Nasal Cannula 3.00 11/24/16 12:00 80 11/24/16 10:00 90 11/24/16 08:00 98.4 66 22 122/60 96 11/24/16 08:00 96 Nasal Cannula 3.00 11/24/16 08:00 69 11/24/16 07:28 98 Nasal Cannula 2.00 11/24/16 06:00 56 11/24/16 04:00 98.1 60 26 125/52 97 11/24/16 04:00 97 Nasal Cannula 3.00 11/24/16 04:00 60 11/24/16 02:00 64 11/24/16 00:00 98 Nasal Cannula 3.00 11/24/16 00:00 98.7 72 31 146/67 98 11/24/16 00:00 72 11/23/16 22:00 74 11/23/16 20:00 76 11/23/16 20:00 97 Nasal Cannula 3.00 11/23/16 20:00 98.5 76 24 164/70 97 11/23/16 19:31 98 Nasal Cannula 3.00 11/23/16 18:00 79 11/23/16 16:00 74 11/23/16 16:00 96 Nasal Cannula 3.00 11/23/16 16:00 97.5 74 24 130/61 96 I/O 11/23/16 11/23/16 11/23/16 11/24/16 11/24/16 11/24/16 07:00 15:00 23:00 07:00 15:00 23:00 Intake Total 1125 ml 858 ml 536 ml 440 ml 560 ml Output Total 1225 ml 1400 ml 500 ml 750 ml 1400 ml Balance -100 ml -542 ml 36 ml -310 ml -840 ml Intake Oral 700 ml 600 ml 400 ml 300 ml 460 ml IV Total 116 ml 258 ml 136 ml 140 ml 100 ml TPN/PPN 309 ml Output Urine Total 450 ml Stool Total 350 ml 500 ml 50 ml 150 ml 250 ml Drainage Total 875 ml 900 ml 450 ml 600 ml 700 ml Result Diagram: 11/24/1632911/24/16329 Objective Remarks GENERAL: Alert, oriented x 3, NAD. On nasal cannula. SKIN: Warm and dry. HEAD: Normocephalic. EYES: No scleral icterus. No injection or drainage. NECK: Supple, trachea midline. No JVD or lymphadenopathy. CARDIOVASCULAR: Irregularly irregular, no murmurs appreciated. RESPIRATORY: Occasional wheezing, no crackles. GASTROINTESTINAL: Abdomen soft with ileal conduit and ostomy bag. Clear yellow urine. Some erythema surrounding wounds MUSCULOSKELETAL: Trace edema. BACK: Nontender without obvious deformity. No CVA tenderness. Nonfocal Alert, awake, oriented 3, no focal deficits. Procedures 11/05/2016 Symptomatic large supraumbilical hernia. Bladder cancer requiring radical cystectomy. 11/08/2016 1. Radical cystoprostatectomy with ileal conduit. 2. Bilateral pelvic lymph node dissection. Right IJ central line A/P Problem List: (1) Acute exacerbation of chronic obstructive pulmonary disease (COPD) ICD Code: J44.1 Status: Acute (2) Bladder cancer ICD Code: C67.9 Status: Acute (3) HTN (hypertension) ICD Code: I10 Status: Acute (4) Atrial flutter ICD Code: I48.92 Status: Acute Assessment and Plan Mr. Edwards is a pleasant 70-year-old male with a history of bladder cancer, COPD, hypertension who underwent radical cystoprostatectomy, umbilical hernia repair during this admission. Hospitalist service was consulted for COPD exacerbation as well as general medical management. He developed atrial flutter with RVR. Bladder cancer - status post radical cystoscopy prostatectomy. Status post ileal conduit. Further management per urology, pain control per urology, weaned off TPN. Acute exacerbation of-resolved, continue oxygen support, status post Levaquin. Continue bronchodilators. Continue Lasix, switch to oral. BMP stable. ileus vs Partial small bowel obstruction. Improved, Developed enterocutaneous fistula. Tolerating regular diet. Colorectal surgery consulted. Atrial flutter with RVR - [id number] score 2 (Age, Hx of HTN). Continue oral Cardizem. Status post cardiology evaluation, status post amiodarone. Discussed with patient, agrees with apixaban set of Coumadin. Stop heparin, continue apixaban. Hypertension -Patient apparently takes Micardis at home. He isn't orthostatic secondary to anemia and BP meds. Blood pressure stable. Anemia secondary to acute blood loss. Status post transfusion with appropriate response monitor CBC. Leukocytosis. Patient no fever but has some erythema around the abdominal wound. Resolved, Zosyn stopped. Fluid overload - Continue Lasix, switch to oral , -960 overnight, will give an extra dose of Lasix. FEN. Ct TPN and diet Hyperkalemia-resolved Hyponatremia-could be from hyperlipidemia, Lasix as above, better with Lasix, recheck BMP tomorrow.. Hyperglycemia secondary to TPN. Improving continue 40 units units regular insulin per TPN bag and high dose sliding scale, We'll adjust insulin dose per glycemic trends. Hypoglycemic protocol Deconditioning. Continue physical therapy, out of bed , consult case management for discharge to [place] DVT prophylaxis eliquis Discharge Planning Discharged to [facility] when cleared by surgery. Brayan Crowell MD Nov 24, 2016 15:39
[2016-11-24] MEDS: ATORVASTATIN 40 MG TAB PO SCH (21:06)
[2016-11-25] VITALS (13 sets, daily range): BP systolic 131–147; BP diastolic 55–64; PULSE 72–105; RESP 17–24; TEMP 98.1–98.7; O2SAT 96–99
[2016-11-25] MEDS: oxyCODONE/ACETAMINOPHEN 5 MG/325 MG TAB PO PRN ×3 (03:41→23:15)
[2016-11-25 04:27] LABS: BICARBONATE 26.4 MEQ/L (21.0-32.0); POTASSIUM 4.8 MEQ/L (3.5-5.1)
[2016-11-25] MEDS: INSULIN ASPART SUPPLEMENTAL SCALE SQ SCH ×4 (06:45→21:12)
[2016-11-25] MEDS: RESP: ALBUTEROL 2.5 MG/IPRATROPIUM 0.5 MG NEB (SCH) NEB ×4 (08:03→20:00)
[2016-11-25] MEDS: SPIRIVA RESPIMAT INH SCH (08:44)
[2016-11-25] MEDS: SODIUM CHLORIDE 0.9% FLUSH 5 ML FLUSH IVF SCH (08:45)
[2016-11-25] MEDS: BUDESONIDE-FORMOTEROL 160/4.5 MCG INHALER INH SCH ×2 (09:00→21:00)
[2016-11-25] MEDS: DILTIAZEM HCL 30 MG TAB PO SCH ×4 (09:46→19:33)
[2016-11-25] MEDS: APIXABAN 5 MG TABLET PO SCH ×2 (09:46→19:32)
[2016-11-25] MEDS: PANTOPRAZOLE SOD 40 MG DELAYED RELEASE TAB PO SCH (09:46)
[2016-11-25] MEDS: FUROSEMIDE 20 MG TAB PO SCH ×2 (09:46→17:11)
[2016-11-25] MEDS: CETIRIZINE HCL 10 MG TAB PO SCH (09:46)
--- NOTE | 2016-11-25 10:31 | HHI.PR ---
Subjective Subjective Notes Resting in bed Mr. Edwards very please that wound project manager industrial stayed in place overnight without any leaking Was up to the chair for 2 hours and 20 minutes yesterday at bedside Objective Vitals/I&O Vital Signs Date Time Temp Pulse Resp B/P Pulse Ox O2 Delivery O2 Flow Rate FiO2 11/25/16 10:00 89 11/25/16 08:03 97 Nasal Cannula 2.00 11/25/16 08:00 98.4 21 131/61 Labs Laboratory Tests Test 11/25/16 03:43 Sodium Level 130 Potassium Level 4.8 Chloride Level 97 Carbon Dioxide Level 26.4 Anion Gap 7 Blood Urea Nitrogen 21 Creatinine 0.97 Estimat Glomerular Filtration 76 Rate Random Glucose 161 Calcium Level 7.9 Cardiovascular: Regular Lungs: Clear Abdomen: Other (midline incision with fistula---stool coming from fistula; wound project manager industrial in place over three fistula sites----wound project manager industrial connected to bedside drainage bag; no leaking around wound project manager industrial) Extremities: Other (generalized edema ) A/P Assessment and Plan 70 year old male s/p radical cystectomy and ileo conduit (by Urology); s/p UHR ( by General Surgery) -Continue wound management bag for wound drainage and connect to wound draining bag; Appreciate Wound Care team -on PO diet -Encourage mobilization ---OOB daily and ambulate in room and hallway SEEN ON ROUNDS WITH ANNA. I ATTEST I PERSONALLY EXAMINED PATIENT AND HAD MS LOERA DOCUMENT OUR VISIT AND ENTER ORDERS IN EMR. Annika Pierce MD, FACS Nov 25, 2016 10:30 Yrn Melgar MD Nov 26, 2016 17:00
--- NOTE | 2016-11-25 13:34 | HHI.PR ---
Subjective Remarks Patient has a lot of gas and fecal matter coming out from the conduit. No fever , chills, shortness of breath, nausea or vomiting. Objective Vitals Vital Signs Date Time Temp Pulse Resp B/P Pulse Ox O2 Delivery O2 Flow Rate FiO2 11/25/16 12:00 98.2 99 24 147/64 97 11/25/16 12:00 99 11/25/16 12:00 99 Nasal Cannula 2.00 11/25/16 10:00 89 11/25/16 08:03 97 Nasal Cannula 2.00 11/25/16 08:00 97 Nasal Cannula 2.00 11/25/16 08:00 85 11/25/16 08:00 98.4 88 21 131/61 96 11/25/16 06:00 72 11/25/16 04:41 15 11/25/16 04:00 98.6 88 22 131/59 97 11/25/16 04:00 97 Nasal Cannula 2.00 11/25/16 04:00 88 11/25/16 02:00 72 11/25/16 00:00 75 11/25/16 00:00 98.7 75 20 138/59 96 11/25/16 00:00 97 Nasal Cannula 2.00 11/24/16 22:16 100 Nasal Cannula 2.00 11/24/16 22:00 69 11/24/16 20:00 97 Nasal Cannula 2.00 11/24/16 20:00 98.4 66 24 130/58 98 11/24/16 20:00 66 11/24/16 18:00 67 11/24/16 16:00 68 11/24/16 16:00 96 Nasal Cannula 3.00 11/24/16 16:00 98.1 69 14 132/63 95 11/24/16 14:00 78 I/O 11/24/16 11/24/16 11/24/16 11/25/16 11/25/16 11/25/16 07:00 15:00 23:00 07:00 15:00 23:00 Intake Total 440 ml 560 ml 635 ml 366 ml Output Total 750 ml 1400 ml 900 ml 900 ml Balance -310 ml -840 ml -265 ml -534 ml Intake Oral 300 ml 460 ml 500 ml 200 ml IV Total 140 ml 100 ml 135 ml 166 ml Output Urine Total 450 ml Stool Total 150 ml 250 ml Drainage Total 600 ml 700 ml 900 ml 900 ml Result Diagram: 11/24/16 0330 11/25/16 0343 Objective Remarks GENERAL: Alert, oriented x 3, NAD. On nasal cannula. SKIN: Warm and dry. HEAD: Normocephalic. EYES: No scleral icterus. No injection or drainage. NECK: Supple, trachea midline. No JVD or lymphadenopathy. CARDIOVASCULAR: Irregularly irregular, no murmurs appreciated. RESPIRATORY: Occasional wheezing, no crackles. GASTROINTESTINAL: Abdomen soft with ileal conduit and ostomy bag defunct because of gas and increased output. Clear yellow urine. Some erythema surrounding wounds MUSCULOSKELETAL: Trace edema. BACK: Nontender without obvious deformity. No CVA tenderness. Nonfocal Alert, awake, oriented 3, no focal deficits. Procedures 11/05/2016 Symptomatic large supraumbilical hernia. Bladder cancer requiring radical cystectomy. 11/08/2016 1. Radical cystoprostatectomy with ileal conduit. 2. Bilateral pelvic lymph node dissection. Right IJ central line A/P Problem List: (1) Acute exacerbation of chronic obstructive pulmonary disease (COPD) ICD Code: J44.1 Status: Acute (2) Bladder cancer ICD Code: C67.9 Status: Acute (3) HTN (hypertension) ICD Code: I10 Status: Acute (4) Atrial flutter ICD Code: I48.92 Status: Acute Assessment and Plan Mr. Edwards is a pleasant 70-year-old male with a history of bladder cancer, COPD, hypertension who underwent radical cystoprostatectomy, umbilical hernia repair during this admission. Hospitalist service was consulted for COPD exacerbation as well as general medical management. He developed atrial flutter with RVR. Bladder cancer - status post radical cystoscopy prostatectomy. Status post ileal conduit. Further management per urology, pain control per urology, weaned off TPN however a lot of output including gas, discussed with Dr. Huff 11/25, will back off on feeding and restart TPN. Acute exacerbation of-resolved, continue oxygen support, status post Levaquin. Continue bronchodilators. Continue Lasix oral. BMP stable. ileus vs Partial small bowel obstruction. Improved, Developed enterocutaneous fistula. Tolerating regular diet. Atrial flutter with RVR - [id number] score 2 (Age, Hx of HTN). Continue oral Cardizem switched to long-acting and apixaban. Patient evaluated by cardiology Hypertension -Patient apparently takes Micardis at home. He isn't orthostatic secondary to anemia and BP meds. Blood pressure stable. Anemia secondary to acute blood loss. Status post transfusion with appropriate response monitor CBC. Leukocytosis. Patient no fever but has some erythema around the abdominal wound. Resolved, Zosyn stopped. Fluid overload - Continue Lasix FEN. Ct TPN and diet Hyperkalemia-resolved Hyponatremia-could be from hypervolemia, Lasix as above, better with Lasix, recheck BMP tomorrow.. Hyperglycemia secondary to TPN. Improving continue 40 units units regular insulin per TPN bag and high dose sliding scale, We'll adjust insulin dose per glycemic trends. Hypoglycemic protocol Deconditioning. Continue physical therapy, out of bed , consult case management for discharge to [facility] DVT prophylaxis eliquis Discussed with Dr. Huff, discharge to [facility] or SNF tomorrow if tolerates TPN Discharge Planning Discharged to [facility] however cannot be weaned off TPN, might need to go to rehabilitation instead, may be discharged tomorrow to [facility] or regular rehabilitation. Brayan Crowell MD Nov 25, 2016 13:34
[2016-11-25 15:25] LABS: BICARBONATE 27.5 MEQ/L (21.0-32.0)
[2016-11-25] MEDS: ATORVASTATIN 40 MG TAB PO SCH (19:32)
[2016-11-25] MEDS: AMOXICILLIN/CLAVULANATE K 875 MG TAB PO SCH (19:44)
[2016-11-25] MEDS ORDERED: CLINIMIX E 5/25 2000 mL- >42 mls/hr IV-CENTRAL SCH ×3 (20:00)
--- NOTE | 2016-11-25 20:10 | HHI.PR ---
Subjective Remarks no acute issues overnight. tolerating regular diet. OOB almost 3 hours yesterday. Large output from fistula. On Eliquis. Objective Vital Signs Vital Signs Date Time Temp Pulse Resp B/P Pulse Ox O2 Delivery O2 Flow Rate FiO2 11/25/16 18:00 93 11/25/16 16:00 98.3 82 17 145/63 99 11/25/16 16:00 99 Nasal Cannula 2.00 11/25/16 16:00 95 11/25/16 14:00 97 11/25/16 12:00 98.2 99 24 147/64 97 11/25/16 12:00 99 11/25/16 12:00 99 Nasal Cannula 2.00 11/25/16 10:00 89 11/25/16 08:03 97 Nasal Cannula 2.00 11/25/16 08:00 97 Nasal Cannula 2.00 11/25/16 08:00 85 11/25/16 08:00 98.4 88 21 131/61 96 11/25/16 06:00 72 11/25/16 04:41 15 11/25/16 04:00 98.6 88 22 131/59 97 11/25/16 04:00 97 Nasal Cannula 2.00 11/25/16 04:00 88 11/25/16 02:00 72 11/25/16 00:00 75 11/25/16 00:00 98.7 75 20 138/59 96 11/25/16 00:00 97 Nasal Cannula 2.00 11/24/16 22:16 100 Nasal Cannula 2.00 11/24/16 22:00 69 I/O 11/24/16 11/24/16 11/24/16 11/25/16 11/25/16 11/25/16 07:00 15:00 23:00 07:00 15:00 23:00 Intake Total 440 ml 560 ml 635 ml 366 ml 814 ml Output Total 750 ml 1400 ml 900 ml 900 ml 3100 ml Balance -310 ml -840 ml -265 ml -534 ml -2286 ml Intake Oral 300 ml 460 ml 500 ml 200 ml 640 ml IV Total 140 ml 100 ml 135 ml 166 ml 174 ml Output Urine Total 450 ml 1000 ml Stool Total 150 ml 250 ml 550 ml Drainage Total 600 ml 700 ml 900 ml 900 ml 1550 ml Result Diagram: 11/24/16 0330 11/25/16 1443 Objective Remarks NAD. A/O x 3 RRR Respiration Nonlabored abd soft, no peritoneal signs. Abdominal binder in place, wound dressing in place. liquid stool in ostomy bag. Stoma diaz but appears viable. Stents in place Good UOP, clear yellow from Urostomy Ext NT. No c/c/e Procedures Radical Cystoprostatectomy, Pelvic LN dissection, Ileal Conduit 11/05/2016 Assessment and Plan Assessment and Plan s/p Radical Cystoprostatectomy, Ileal Conduit with post operative ileus, A- flutter with RVR, enterocutaneous fistula -Due to high output enterocutaneous fistula, will back off diet to low residue. Will restart TPN. -If fistula does not spontaneous close, will need definitive operative repair in future, likely 6-8 weeks from now. -Appreciate Wound Care help. -PT/OT -On Eliquis -Ok to d/c to rehab with TPN. -I am out of town until 11/30. Dr. Serna will be covering. -D/W patient, , nurse, Dr. Crowell. Duncan Huff MD Nov 25, 2016 20:10
[2016-11-26] VITALS (14 sets, daily range): BP systolic 116–146; BP diastolic 58–71; PULSE 71–105; RESP 22–33; TEMP 97.9–98.6; O2SAT 96–99
[2016-11-26 06:14] LABS: BICARBONATE 29.8 MEQ/L (21.0-32.0); POTASSIUM 4.2 MEQ/L (3.5-5.1)
[2016-11-26] MEDS: INSULIN ASPART SUPPLEMENTAL SCALE SQ SCH ×4 (06:19→21:00)
[2016-11-26] MEDS: RESP: ALBUTEROL 2.5 MG/IPRATROPIUM 0.5 MG NEB (SCH) NEB ×4 (08:02→20:37)
[2016-11-26] MEDS: SPIRIVA RESPIMAT INH SCH (09:00)
[2016-11-26] MEDS: BUDESONIDE-FORMOTEROL 160/4.5 MCG INHALER INH SCH ×2 (09:00→21:00)
[2016-11-26] MEDS ORDERED: GLUCAGON 1 MG/ML VIAL OTHER PRN (09:15)
[2016-11-26] MEDS ORDERED: DEXTROSE 50% IN WATER 50 ML VIAL(D50) IV PUSH PRN (09:15)
--- NOTE | 2016-11-26 09:33 | HHI.PR ---
Subjective Remarks F/U hyperglycemia. Worsening hyperglycemia since TPN started. He is feeling better states output improved since starting clears diaz RN Objective Vitals Vital Signs Date Time Temp Pulse Resp B/P Pulse Ox O2 Delivery O2 Flow Rate FiO2 11/26/16 08:04 98 Nasal Cannula 2.00 11/26/16 06:00 85 11/26/16 04:00 99 Nasal Cannula 2.00 11/26/16 04:00 97.9 82 22 136/64 98 11/26/16 04:00 71 11/26/16 02:00 87 11/26/16 00:15 20 11/26/16 00:00 96 11/26/16 00:00 99 Nasal Cannula 2.00 11/26/16 00:00 98.0 90 25 140/63 98 11/25/16 22:00 100 11/25/16 20:00 99 Nasal Cannula 2.00 11/25/16 20:00 105 11/25/16 20:00 98.1 105 21 132/55 99 11/25/16 18:00 93 11/25/16 16:00 98.3 82 17 145/63 99 11/25/16 16:00 99 Nasal Cannula 2.00 11/25/16 16:00 95 11/25/16 14:00 97 11/25/16 12:00 98.2 99 24 147/64 97 11/25/16 12:00 99 11/25/16 12:00 99 Nasal Cannula 2.00 11/25/16 10:00 89 I/O 11/25/16 11/25/16 11/25/16 11/26/16 11/26/16 11/26/16 07:00 15:00 23:00 07:00 15:00 23:00 Intake Total 366 ml 814 ml 453 ml 834 ml Output Total 900 ml 3100 ml 700 ml 750 ml Balance -534 ml -2286 ml -247 ml 84 ml Intake Oral 200 ml 640 ml 250 ml 200 ml IV Total 166 ml 174 ml 75 ml 74 ml TPN/PPN 128 ml 560 ml Output Urine Total 1000 ml Stool Total 550 ml Drainage Total 900 ml 1550 ml 700 ml 750 ml Result Diagram: 11/24/16 0330 11/26/16 0530 Imaging Objective Remarks GENERAL: Alert, oriented x 3, NAD. On nasal cannula. SKIN: Warm and dry. HEAD: Normocephalic. EYES: No scleral icterus. No injection or drainage. NECK: Supple, trachea midline. No JVD or lymphadenopathy. CARDIOVASCULAR: Irregularly irregular, no murmurs appreciated. RESPIRATORY: Clear lungs equal no crackles. GASTROINTESTINAL: Abdomen soft with ileal conduit and ostomy bag. Clear yellow urine. Some erythema surrounding wounds MUSCULOSKELETAL: Trace edema. BACK: Nontender without obvious deformity. No CVA tenderness. Nonfocal Alert, awake, oriented 3, no focal deficits. Procedures 11/05/2016 Symptomatic large supraumbilical hernia. Bladder cancer requiring radical cystectomy. 11/08/2016 1. Radical cystoprostatectomy with ileal conduit. 2. Bilateral pelvic lymph node dissection. Right IJ central line A/P Problem List: (1) Acute exacerbation of chronic obstructive pulmonary disease (COPD) ICD Code: J44.1 Status: Acute (2) Bladder cancer ICD Code: C67.9 Status: Acute (3) HTN (hypertension) ICD Code: I10 Status: Acute (4) Atrial flutter ICD Code: I48.92 Status: Acute Assessment and Plan Mr. Edwards is a pleasant 70-year-old male with a history of bladder cancer, COPD, hypertension who underwent radical cystoprostatectomy, umbilical hernia repair during this admission. Hospitalist service was consulted for COPD exacerbation as well as general medical management. He developed atrial flutter with RVR. Bladder cancer - status post radical cystoscopy prostatectomy. Status post ileal conduit. Further management per urology, pain control per urology, weaned off TPN however a lot of output including gas, discussed with Dr. Huff 11/25, will back off on feeding and restart TPN. Acute exacerbation of COPD-resolved, continue oxygen support, status post Levaquin. Continue bronchodilators. C ileus vs Partial small bowel obstruction. Improved, Developed enterocutaneous fistula. Tolerating diet. Will need repair in 6-8 weeks Atrial flutter with RVR - [id number] score 2 (Age, Hx of HTN). Continue oral Cardizem switched to long-acting and apixaban. Patient evaluated by cardiology Hypertension -Patient apparently takes Micardis at home. He isn't orthostatic secondary to anemia and BP meds. Blood pressure stable. Anemia secondary to acute blood loss. Status post transfusion with appropriate response monitor CBC. Leukocytosis. Patient no fever but has some erythema around the abdominal wound. Ct Augmentin Fluid overload - Continue Lasix FEN. Ct TPN and diet Hyperkalemia-resolved Hyponatremia-could be from hypervolemia, Lasix as above, better with Lasix, recheck BMP tomorrow.. Hyperglycemia secondary to TPN hx borderline DM. Check A1c. Add 40 units units regular insulin per TPN bag and ct high dose sliding scale, We'll adjust insulin dose per glycemic trends. Hypoglycemic protocol Deconditioning. Continue physical therapy, out of bed , consult case management for discharge to [place] which declined pt DVT prophylaxis eliquis Discharge Planning Stable to floor. Dc to SNF when arranged Navi Monreal MD Nov 26, 2016 09:33 Restart TPN today. Switch Keflex to Augmentin. Navi Monreal MD Nov 26, 2016 09:33
--- NOTE | 2016-11-26 09:34 | HHI.PR ---
Subjective Subjective Notes Resting in bed Reports he was up for about 2 and a half hours yesterday Objective Vitals/I&O Vital Signs Date Time Temp Pulse Resp B/P Pulse Ox O2 Delivery O2 Flow Rate FiO2 11/26/16 08:04 98 Nasal Cannula 2.00 11/26/16 06:00 85 11/26/16 04:00 97.9 22 136/64 Labs Laboratory Tests Test 11/25/16 11/26/16 14:43 05:30 Sodium Level 132 132 Potassium Level 4.0 4.2 Chloride Level 98 96 Carbon Dioxide Level 27.5 29.8 Anion Gap 7 6 Blood Urea Nitrogen 18 17 Creatinine 0.89 0.75 Estimat Glomerular Filtration 84 103 Rate Random Glucose 151 212 Calcium Level 7.7 7.8 Cardiovascular: Regular Lungs: Clear Abdomen: Other (large wound appliance on without leaking ) Extremities: No edema A/P Assessment and Plan 70 year old male s/p radical cystectomy and ileo conduit (by Urology); s/p UHR ( by General Surgery) -Continue wound management bag for wound drainage and connect to wound draining bag; Appreciate Wound Care team -on PO diet -on TPN -Encourage mobilization ---OOB daily and ambulate in room and hallway PATIENT SEEN ON ROUNDS WITH CALF SKINNER AND WOUND NURSE PRESENT. THEY WERE CHANGING APPLIANCE. TISSUE DEBRIDED SHARPLY AT BEDSIDE BY ME. SUTURES REMOVED THEY WERE COMPROMISING BOWEL. BASICALLY HE SHOULD BE TREATED AN ILEOSTOMY PATIENT. CAN CONTINUE PO. NEED TO MONITOR I/O'S AND ELECTOLYTES CLOSELY. CAN PLAN TO EXPLORE AND TAKE DOWN FISTULAS IN ABOUT 8-10 WEEKS. WOUND NURSE WILL CUSTOMIZE APPLIANCES TO PROTECT SKIN. PAULO MOJICA MD FACS Annika Reyes. CALF SKINNER Nov 26, 2016 09:34 Paulo Mojica MD Nov 26, 2016 16:58
[2016-11-26] MEDS: AMOXICILLIN/CLAVULANATE K 875 MG TAB PO SCH ×2 (09:41→20:48)
[2016-11-26] MEDS: FUROSEMIDE 20 MG TAB PO SCH (09:41)
[2016-11-26] MEDS: PANTOPRAZOLE SOD 40 MG DELAYED RELEASE TAB PO SCH (09:41)
[2016-11-26] MEDS: CETIRIZINE HCL 10 MG TAB PO SCH (09:41)
[2016-11-26] MEDS: DILTIAZEM-CD 120 MG CAP ER PO SCH (09:41)
[2016-11-26] MEDS: APIXABAN 5 MG TABLET PO SCH ×2 (09:41→20:48)
[2016-11-26] MEDS: SODIUM CHLORIDE 0.9% FLUSH 5 ML FLUSH IVF SCH (09:42)
[2016-11-26] MEDS ORDERED: PERC10TA27 PO (09:58)
[2016-11-26] MEDS: oxyCODONE/ACETAMINOPHEN 5 MG/325 MG TAB PO PRN ×2 (15:35→23:26)
[2016-11-26] MEDS: MULTIVITAMIN INJ 10 ML, FOLIC ACID INJ 1 MG, INSULIN HUMAN REGULAR INJ 40 UNITS in AMIN... IV-CENTRAL SCH (20:47)
[2016-11-26] MEDS: FAT EMULSION 20% INJ 250 ML (Twice weekly over 8 hours) IV-CENTRAL SCH (20:47)
[2016-11-26] MEDS: ATORVASTATIN 40 MG TAB PO SCH (20:48)
[2016-11-27] VITALS (8 sets, daily range): BP systolic 123–160; BP diastolic 61–65; PULSE 78–109; RESP 18–22; TEMP 97.1–98.4; O2SAT 92–98
[2016-11-27] MEDS: INSULIN ASPART SUPPLEMENTAL SCALE SQ SCH ×4 (05:50→21:00)
--- NOTE | 2016-11-27 07:52 | HHI.PR ---
Subjective Remarks Follow-up hyperglycemia. States he is doing okay noted some leakage from ostomy bag. Dw RN Objective Vitals Vital Signs Date Time Temp Pulse Resp B/P Pulse Ox O2 Delivery O2 Flow Rate FiO2 11/27/16 04:28 97.7 87 18 153/63 98 11/27/16 00:36 96 Nasal Cannula 2.00 11/27/16 00:05 98.4 104 18 160/63 92 11/26/16 22:00 105 11/26/16 20:37 96 Nasal Cannula 2.00 11/26/16 20:00 105 11/26/16 20:00 98.6 99 24 116/58 98 11/26/16 20:00 96 Nasal Cannula 2.00 11/26/16 18:00 98 11/26/16 16:00 97 Nasal Cannula 2.00 11/26/16 16:00 98.2 102 33 142/71 98 11/26/16 16:00 102 11/26/16 14:00 99 11/26/16 12:00 98.3 100 25 136/60 99 11/26/16 12:00 96 11/26/16 12:00 97 Nasal Cannula 2.00 11/26/16 10:00 100 11/26/16 08:04 98 Nasal Cannula 2.00 11/26/16 08:00 98.2 88 24 146/63 98 11/26/16 08:00 98 Nasal Cannula 2.00 11/26/16 08:00 88 I/O 11/26/16 11/26/16 11/26/16 11/27/16 11/27/16 11/27/16 07:00 15:00 23:00 07:00 15:00 23:00 Intake Total 834 ml 1882 ml 1135 ml 875 ml Output Total 750 ml 1800 ml 1350 ml 450 ml Balance 84 ml 82 ml -215 ml 425 ml Intake Oral 200 ml 1180 ml 400 ml 0 ml IV Total 74 ml 84 ml 79 ml TPN/PPN 560 ml 618 ml 656 ml 625 ml Lipid 250 ml Output Urine Total 400 ml Stool Total 50 ml Drainage Total 750 ml 1800 ml 1350 ml # Bowel Movements 0 Result Diagram: 11/24/16 0330 11/26/16 0530 Imaging Last Impressions Chest X-Ray 11/19/16 0000 Signed Impressions: Service Date/Time: Saturday, November 19, 2016 13:34 - CONCLUSION: 1. No placement of right central venous line with no evidence of pneumothorax. 2. Interval placement of nasogastric tube. 3. Patchy opacity remains at the lung bases. Orion Aguilera MD Abdomen/Pelvis CT 11/19/16 0000 Signed Impressions: Service Date/Time: Saturday, November 19, 2016 20:12 - CONCLUSION: 1. Status post cystectomy with an ileal loop in the right lower quadrant. Ureteral stents are seen through the ileal loop bilaterally. No hydronephrosis is seen. 2. 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 This appearance is completely unchanged. There is an adjacent segment of small bowel herniating through this region. This is also unchanged from the prior exam. 3. Bibasilar areas of consolidation or atelectasis. 4. Status post cystectomy and suspected prostatectomy. 5. Evidence of prior granulomatous exposure. Harris Yusuf MD Central Venous Line 11/14/16 0000 Signed Impressions: Service Date/Time: Monday, November 14, 2016 16:07 - CONCLUSION: Uncomplicated line placement as above. Mando Rodriguez MD CT Angiography 11/12/16 0000 Signed Impressions: Service Date/Time: Saturday, November 12, 2016 04:09 - CONCLUSION: 1. No evidence for pulmonary embolism. 2. Abnormal patchy areas of pulmonary consolidation are noted as described above. Small pleural effusions. 3. Emphysema. Timmy Jacobson MD Lower Extremity Ultrasound 11/11/16 0000 Signed Impressions: Service Date/Time: Friday, November 11, 2016 10:03 - CONCLUSION: Negative exam with no evidence of deep venous thrombosis. Orion Aguilera MD Abdomen X-Ray 11/11/16 0000 Signed Impressions: Service Date/Time: Friday, November 11, 2016 17:02 - CONCLUSION: 1. Air distention of small bowel loops in the left upper abdominal quadrant with decompression of the visualized portions of the colon. Pattern is concerning for possible early small bowel obstruction versus focal hypodynamic ileus. This study will serve as a baseline for followup imaging. 2. Postsurgical changes characteristic of ileal conduit with bilateral double-J stents terminating in the right lower abdominal quadrant. Mando Rodriguez MD Objective Remarks GENERAL: Alert, oriented x 3, NAD. On nasal cannula 3L on 2L at home. SKIN: Warm and dry. HEAD: Normocephalic. EYES: No scleral icterus. No injection or drainage. NECK: Supple, trachea midline. No JVD or lymphadenopathy. CARDIOVASCULAR: Irregularly irregular, no murmurs appreciated. RESPIRATORY: Clear lungs equal no crackles. GASTROINTESTINAL: Abdomen soft with ileal conduit and ostomy bag. Clear yellow urine. Some erythema surrounding wounds MUSCULOSKELETAL: Trace edema. BACK: Nontender without obvious deformity. No CVA tenderness. Nonfocal Alert, awake, oriented 3, no focal deficits. Procedures 11/05/2016 Symptomatic large supraumbilical hernia. Bladder cancer requiring radical cystectomy. 11/08/2016 1. Radical cystoprostatectomy with ileal conduit. 2. Bilateral pelvic lymph node dissection. Right IJ central line A/P Problem List: (1) Acute exacerbation of chronic obstructive pulmonary disease (COPD) ICD Code: J44.1 Status: Acute (2) Bladder cancer ICD Code: C67.9 Status: Acute (3) HTN (hypertension) ICD Code: I10 Status: Acute (4) Atrial flutter ICD Code: I48.92 Status: Acute Assessment and Plan Mr. Edwards is a pleasant 70-year-old male with a history of bladder cancer, COPD, hypertension who underwent radical cystoprostatectomy, umbilical hernia repair during this admission. Hospitalist service was consulted for COPD exacerbation as well as general medical management. He developed atrial flutter with RVR. Bladder cancer - status post radical cystoscopy prostatectomy. Status post ileal conduit. Further management per urology, pain control per urology, weaned off TPN however a lot of output including gas, discussed with Dr. Huff 11/25, will back off on clear liquid and restart TPN. Acute exacerbation of COPD-resolved, continue oxygen support, status post Levaquin. Continue bronchodilators. ileus vs Partial small bowel obstruction. Improved, Developed enterocutaneous fistula. Tolerating diet. Will need repair in 8-10 weeks per GS Atrial flutter with RVR - [id number] score 2 (Age, Hx of HTN). Continue oral Cardizem and apixaban. Patient evaluated by cardiology. Stable Hypertension -Patient apparently takes Micardis at home. He isn't orthostatic secondary to anemia and BP meds. Blood pressure stable. Anemia secondary to acute blood loss. Status post transfusion with appropriate response monitor CBC. Leukocytosis. Patient no fever but has some erythema around the abdominal wound. Ct Augmentin Fluid overload - Continue Lasix FEN. Ct TPN and diet Hyperkalemia-resolved Hyponatremia-could be from hypervolemia, Lasix as above, better with Lasix, recheck BMP tomorrow. Hyperglycemia secondary to TPN hx borderline DM. Follow-up A1c. Added 40 units units regular insulin per TPN bag and ct high dose sliding scale, We'll adjust insulin dose per glycemic trends. Hypoglycemic protocol. Improving hyperglycemia Deconditioning. Continue physical therapy, out of bed , consult case management for discharge to [place] which declined pt DVT prophylaxis eliquis Discharge Planning Dc to SNF when arranged. Patient has been referred to [facility] follow-up Navi Monreal MD Nov 27, 2016 07:52
[2016-11-27] MEDS: RESP: ALBUTEROL 2.5 MG/IPRATROPIUM 0.5 MG NEB (SCH) NEB ×4 (08:27→22:27)
[2016-11-27] MEDS ORDERED: IPRASOL NEB (09:11)
[2016-11-27] MEDS ORDERED: PANT40TA3 PO (09:11)
[2016-11-27] MEDS ORDERED: APIX5TAB PO (09:11)
[2016-11-27] MEDS ORDERED: NOVOLOGSS SQ (09:11)
[2016-11-27] MEDS ORDERED: FURO20TA PO (09:11)
[2016-11-27] MEDS ORDERED: AMOX875T2 PO (09:11)
--- NOTE | 2016-11-27 09:11 | HHI.DCPOC ---
Discharge Care Plan Diagnosis: (1) Acute bronchitis with COPD (2) Bladder cancer (3) Atrial flutter Your Health Problems Are: Difficulty with ADL Exercise Tolerance Goals to Promote Your Health * To prevent worsening of your condition and complications * To maintain your health at the optimal level Directions to Meet Your Goals Take your medications as prescribed Follow your dietary instruction Follow activity as directed Keep your appointments as scheduled Take your immunizations and boosters as scheduled If your symptoms worsen call your PCP, if no PCP go to Urgent Care Center or Emergency Room Smoking is Dangerous to Your Health. Avoid second hand smoke Call the 24-hour hour crisis hotline for domestic abuse at Navi Monreal MD Nov 27, 2016 09:11
[2016-11-27 09:15] LABS: BICARBONATE 31.4 MEQ/L (21.0-32.0); MAGNESIUM 2.1 MG/DL (1.5-2.5); POTASSIUM 4.2 MEQ/L (3.5-5.1)
[2016-11-27] MEDS: SPIRIVA RESPIMAT INH SCH (09:22)
[2016-11-27] MEDS: FUROSEMIDE 20 MG TAB PO SCH ×2 (09:22→17:30)
[2016-11-27] MEDS: BUDESONIDE-FORMOTEROL 160/4.5 MCG INHALER INH SCH ×2 (09:22→21:53)
[2016-11-27] MEDS: AMOXICILLIN/CLAVULANATE K 875 MG TAB PO SCH ×2 (09:23→22:40)
[2016-11-27] MEDS: DILTIAZEM-CD 120 MG CAP ER PO SCH (09:23)
[2016-11-27] MEDS: CETIRIZINE HCL 10 MG TAB PO SCH (09:23)
[2016-11-27] MEDS: PANTOPRAZOLE SOD 40 MG DELAYED RELEASE TAB PO SCH (09:23)
[2016-11-27] MEDS: APIXABAN 5 MG TABLET PO SCH ×2 (09:26→21:51)
[2016-11-27] MEDS: SODIUM CHLORIDE 0.9% FLUSH 5 ML FLUSH IVF SCH (13:08)
[2016-11-27] MEDS: oxyCODONE/ACETAMINOPHEN 5 MG/325 MG TAB PO PRN (14:13)
--- NOTE | 2016-11-27 14:23 | HHI.DS ---
Discharge Summary Admission Date Nov 05, 2016 at 05:11 Discharge Date: Nov 27, 2016 Admitting Diagnosis (1) Acute exacerbation of chronic obstructive pulmonary disease (COPD) ICD Code: J44.1 Diagnosis: Principal (2) Bladder cancer ICD Code: C67.9 Diagnosis: Principal (3) HTN (hypertension) ICD Code: I10 Diagnosis: Secondary (4) Atrial flutter ICD Code: I48.92 Diagnosis: Secondary Procedures 11/05/2016 Symptomatic large supraumbilical hernia. Bladder cancer requiring radical cystectomy. 11/08/2016 1. Radical cystoprostatectomy with ileal conduit. 2. Bilateral pelvic lymph node dissection. Right IJ central line Brief History - From Admission Mr. Edwards is a pleasant 70-year-old male with a history of bladder cancer, COPD, hypertension who underwent radical cystoprostatectomy with ileal conduit and bilateral pelvic lymph node dissection on 11/08/2016. Patient also underwent primary umbilical hernia repair by general surgery. Hospitalist service was consulted for COPD exacerbation as well as general medical management. At the time of this interview patient is doing well but reports difficulty breathing. He denies any chest pain, fever or chills. He reports more than usual difficulty with his breathing. He uses 2-4 L of oxygen at home. Patient reports intolerance to prednisone before but he has used IV steroid without any difficulty. CBC/BMP: 11/24/16 0330 11/27/16 0743 Significant Findings Laboratory Tests Test 11/25/16 11/25/16 11/26/16 11/27/16 03:43 14:43 05:30 07:43 Sodium Level 130 MEQ/L 132 MEQ/L 132 MEQ/L 132 MEQ/L (136-145) (136-145) (136-145) (136-145) Chloride Level 97 MEQ/L 96 MEQ/L 96 MEQ/L (98-107) (98-107) (98-107) Blood Urea Nitrogen 21 MG/DL (7-18) Estimat Glomerular Filtration 76 ML/MIN (>89) 84 ML/MIN (>89) Rate Random Glucose 161 MG/DL 151 MG/DL 212 MG/DL (74-106) (74-106) (74-106) Calcium Level 7.9 MG/DL 7.7 MG/DL 7.8 MG/DL 8.4 MG/DL (8.5-10.1) (8.5-10.1) (8.5-10.1) (8.5-10.1) Creatinine 0.58 MG/DL (0.60-1.30) Imaging Last Impressions Chest X-Ray 11/19/16 0000 Signed Impressions: Service Date/Time: Saturday, November 19, 2016 13:34 - CONCLUSION: 1. No placement of right central venous line with no evidence of pneumothorax. 2. Interval placement of nasogastric tube. 3. Patchy opacity remains at the lung bases. Orion Aguilera MD Abdomen/Pelvis CT 11/19/16 0000 Signed Impressions: Service Date/Time: Saturday, November 19, 2016 20:12 - CONCLUSION: 1. Status post cystectomy with an ileal loop in the right lower quadrant. Ureteral stents are seen through the ileal loop bilaterally. No hydronephrosis is seen. 2. 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 This appearance is completely unchanged. There is an adjacent segment of small bowel herniating through this region. This is also unchanged from the prior exam. 3. Bibasilar areas of consolidation or atelectasis. 4. Status post cystectomy and suspected prostatectomy. 5. Evidence of prior granulomatous exposure. Harris Yusuf MD Central Venous Line 11/14/16 0000 Signed Impressions: Service Date/Time: Monday, November 14, 2016 16:07 - CONCLUSION: Uncomplicated line placement as above. Mando Rodriguez MD CT Angiography 11/12/16 0000 Signed Impressions: Service Date/Time: Saturday, November 12, 2016 04:09 - CONCLUSION: 1. No evidence for pulmonary embolism. 2. Abnormal patchy areas of pulmonary consolidation are noted as described above. Small pleural effusions. 3. Emphysema. Timmy Jacobson MD Lower Extremity Ultrasound 11/11/16 0000 Signed Impressions: Service Date/Time: Friday, November 11, 2016 10:03 - CONCLUSION: Negative exam with no evidence of deep venous thrombosis. Orion Aguilera MD Abdomen X-Ray 11/11/16 0000 Signed Impressions: Service Date/Time: Friday, November 11, 2016 17:02 - CONCLUSION: 1. Air distention of small bowel loops in the left upper abdominal quadrant with decompression of the visualized portions of the colon. Pattern is concerning for possible early small bowel obstruction versus focal hypodynamic ileus. This study will serve as a baseline for followup imaging. 2. Postsurgical changes characteristic of ileal conduit with bilateral double-J stents terminating in the right lower abdominal quadrant. Mando Rodriguez MD PE at Discharge GENERAL: Alert, oriented x 3, NAD. On nasal cannula 3L on 2L at home. SKIN: Warm and dry. HEAD: Normocephalic. EYES: No scleral icterus. No injection or drainage. NECK: Supple, trachea midline. No JVD or lymphadenopathy. CARDIOVASCULAR: Irregularly irregular, no murmurs appreciated. RESPIRATORY: Clear lungs equal no crackles. GASTROINTESTINAL: Abdomen soft with ileal conduit and ostomy bag. Clear yellow urine. Some erythema surrounding wounds MUSCULOSKELETAL: Trace edema. BACK: Nontender without obvious deformity. No CVA tenderness. Nonfocal Alert, awake, oriented 3, no focal deficits. Hospital Course Mr. Edwards is a pleasant 70-year-old male with a history of bladder cancer, COPD, hypertension who underwent radical cystoprostatectomy, umbilical hernia repair during this admission. Hospitalist service was consulted for COPD exacerbation as well as general medical management. He developed atrial flutter with RVR. Bladder cancer - status post radical cystoscopy prostatectomy. Status post ileal conduit. Further management per urology, pain control per urology, weaned off TPN however a lot of output including gas, discussed with Dr. Huff 11/25, will back off on clear liquid and restart TPN. Acute exacerbation of COPD-resolved, continue oxygen support, status post Levaquin. Continue bronchodilators. ileus vs Partial small bowel obstruction. Improved, Developed enterocutaneous fistula. Tolerating diet. Will need repair in 8-10 weeks per GS Atrial flutter with RVR - [id number] score 2 (Age, Hx of HTN). Continue oral Cardizem and apixaban. Patient evaluated by cardiology. Stable Hypertension -Patient apparently takes Micardis at home. He isn't orthostatic secondary to anemia and BP meds. Blood pressure stable. Anemia secondary to acute blood loss. Status post transfusion with appropriate response monitor CBC. Leukocytosis. Patient no fever but has some erythema around the abdominal wound. Ct Augmentin Fluid overload - Continue Lasix FEN. Ct TPN and diet Hyperkalemia-resolved Hyponatremia-could be from hypervolemia, Lasix as above, better with Lasix, recheck BMP tomorrow. Hyperglycemia secondary to TPN hx borderline DM. Follow-up A1c. Added 40 units units regular insulin per TPN bag and ct high dose sliding scale, We'll adjust insulin dose per glycemic trends. Hypoglycemic protocol. Improving hyperglycemia Deconditioning. Continue physical therapy, out of bed , consult case management for discharge to [place] which declined pt DVT prophylaxis eliquis Pt Condition on Discharge: Stable Discharge Disposition: Discharge to SNF Discharge Time: > 30 minutes Discharge Instructions DIET: Follow Instructions for: Diabetic Diet, Clear Liquid Diet Additional Diet Instructions: TPN Activities you can perform: Regular-No Restrictions Activities to Avoid: Driving Follow up Referrals: PCP Follow-up - 1 Week Surgical - 10 Days with Yrn Melgar MD Urology - 1 Week New Medications: Oxycodone-Acetaminophen (Percocet) 10-325 mg Tab 1 TAB PO Q6H PRN PAIN #12 Ref 0 TAB Amoxicillin-Clavulanate (Amoxicillin-Clavulanate) 875-125 mg Tab 875 MG PO Q12HR Stop date Dec 01 2016 Infection #8 TAB Apixaban (Eliquis) 5 Mg Tab 5 MG PO BID Prevent Blood Clot #60 TAB Diltiazem CD 24 HR (Cardizem CD 24 HR) 120 Mg Caper 120 MG PO DAILY Regulate Heart Beat #30 CAP Furosemide (Furosemide) 20 Mg Tab 20 MG PO BID@,18 Prevent Heart Failure #60 TAB Insulin Aspart Inj (Novolog Inj) 100 Unit/Ml Inj 1 UNITS SQ ACHS SLIDING SCALE use hi dose kodak while on TPN Blood Sugar Management #180 INJECTION Ipratropium-Albuterol Neb (Duoneb) 0.5-2.5 Mg/3 Ml Neb 1 AMPULE NEB QID NEB Breathing Treatment #120 ML Pantoprazole (Pantoprazole) 40 Mg Tab 40 MG PO DAILY Manage Heartburn #30 TAB Continued Medications: Atorvastatin (Lipitor) 40 Mg Tab 40 MG PO HS Cholesterol Management #30 Ref 0 TAB Cetirizine (Zyrtec Allergy) 10 Mg Cap 10 MG PO DAILY Allergies Ref 0 CAP Cholecalciferol (Vitamin D-3) 2,000 Unit Tab 2000 UNITS PO DAILY Cyanocobalamin (Vitamin B12) 500 Mcg Tab 1000 MCG PO DAILY #1 BOTTLE Fluticasone-Salmeterol Inh (Advair Diskus Inh) 250-50 Mcg/Blist Aer 1 PUFF INH BID Rinse mouth after use. #1 Ref 0 INHALER Tiotropium Inh (Spiriva Respimat Inh) 2.5 Mcg/Act Aero 2 PUFF INH DAILY 2.5 mcg = 1 inhalation COPD #1 Ref 0 INHALER Navi Monreal MD Nov 27, 2016 14:23
--- NOTE | 2016-11-27 14:40 | HHI.PR ---
Subjective Subjective Notes Resting in bed at bedside RN Adolfo at bedside from Wound Care Team Objective Vitals/I&O Vital Signs Date Time Temp Pulse Resp B/P Pulse Ox O2 Delivery O2 Flow Rate FiO2 11/27/16 12:00 97.7 95 20 123/65 98 11/27/16 08:30 Nasal Cannula 3.00 Labs Laboratory Tests Test 11/27/16 07:43 Sodium Level 132 Potassium Level 4.2 Chloride Level 96 Carbon Dioxide Level 31.4 Anion Gap 5 Blood Urea Nitrogen 17 Creatinine 0.58 Estimat Glomerular Filtration 138 Rate Random Glucose 92 Calcium Level 8.4 Magnesium Level 2.1 Cardiovascular: Regular Lungs: Clear Abdomen: Other (see below) Extremities: No edema Narrative Exam Abd: urostomy in place with drainage bag---stoma dark; large midline fistula x2 with stool output; 1 smaller fistula with no output; skin red around wounds A/P Assessment and Plan 70 year old male s/p radical cystectomy and ileo conduit (by Urology); s/p UHR ( by General Surgery) -Continue wound management bag for wound drainage and connect to wound draining bag; Appreciate Wound Care team -on fulls + Ensure -Encourage mobilization ---OOB daily and ambulate in room and hallway -Spoke with Dr. Monreal---patient should remain in the acute hospital setting for now due to complexity of wounds I certify and attest that I personally examined this patient and reviewed her findings in the EMR. Ms Reyes is documenting our encounter on my behalf and entered orders under my direct supervision. I discussed our recommendations with the patient and family at the bedside. I also discussed our encounter with the nursing staff present. PA[facility] Annika Reyes Nov 27, 2016 14:40 Paulo Melgar MD Dec 05, 2016 10:34
[2016-11-27 17:35] LABS: HEMOGLOBIN A1a 1.3 %; HEMOGLOBIN A1b 0.9 %; HEMOGLOBIN F 1.1 %; HEMOGLOBIN LA1C 1.7 %; HEMOGLOBIN P3 4.1 %
[2016-11-27] MEDS: ATORVASTATIN 40 MG TAB PO SCH (21:51)
[2016-11-27] MEDS: MULTIVITAMIN INJ 10 ML, FOLIC ACID INJ 1 MG, INSULIN HUMAN REGULAR INJ 40 UNITS in AMIN... IV-CENTRAL SCH (21:53)
[2016-11-28] VITALS (8 sets, daily range): BP systolic 125–133; BP diastolic 58–66; PULSE 60–108; RESP 17–22; TEMP 96.2–97.6; O2SAT 95–97
[2016-11-28] MEDS: oxyCODONE/ACETAMINOPHEN 5 MG/325 MG TAB PO PRN ×2 (00:19→09:26)
[2016-11-28] MEDS: INSULIN ASPART SUPPLEMENTAL SCALE SQ SCH ×5 (04:35→23:11)
[2016-11-28 08:05] LABS: BICARBONATE 34.4 MEQ/L (21.0-32.0); MAGNESIUM 2.2 MG/DL (1.5-2.5); POTASSIUM 4.4 MEQ/L (3.5-5.1)
[2016-11-28] MEDS: RESP: ALBUTEROL 2.5 MG/IPRATROPIUM 0.5 MG NEB (SCH) NEB ×4 (08:56→19:56)
[2016-11-28] MEDS: SPIRIVA RESPIMAT INH SCH (09:00)
[2016-11-28] MEDS: SODIUM CHLORIDE 0.9% FLUSH 5 ML FLUSH IVF SCH (09:00)
[2016-11-28] MEDS: PANTOPRAZOLE SOD 40 MG DELAYED RELEASE TAB PO SCH (09:27)
[2016-11-28] MEDS: FUROSEMIDE 20 MG TAB PO SCH ×2 (09:27→17:41)
[2016-11-28] MEDS: APIXABAN 5 MG TABLET PO SCH ×2 (09:27→20:32)
[2016-11-28] MEDS: DILTIAZEM-CD 120 MG CAP ER PO SCH (09:27)
[2016-11-28] MEDS: CETIRIZINE HCL 10 MG TAB PO SCH (09:27)
[2016-11-28] MEDS: AMOXICILLIN/CLAVULANATE K 875 MG TAB PO SCH ×2 (09:27→20:33)
[2016-11-28] MEDS: BUDESONIDE-FORMOTEROL 160/4.5 MCG INHALER INH SCH ×2 (09:37→20:31)
--- NOTE | 2016-11-28 09:59 | HHI.PR ---
Subjective Remarks Follow-up hyperglycemia. Improving glycemic trends on regular insulin 40 units in TPN bag and high-dose sliding scale. Patient has no complaints. Discussed with general surgery hold discharge secondary to complexity of wounds. Discussed with RN and case sealer Objective Vitals Vital Signs Date Time Temp Pulse Resp B/P Pulse Ox O2 Delivery O2 Flow Rate FiO2 11/28/16 08:57 96 Nasal Cannula 2.00 11/28/16 08:00 97.4 60 17 133/63 95 11/28/16 01:19 18 11/28/16 00:00 96.2 80 22 129/62 97 11/27/16 22:30 96 Nasal Cannula 3.00 11/27/16 22:00 2.00 11/27/16 21:00 97.1 78 22 141/65 98 11/27/16 16:21 98 Nasal Cannula 2.00 11/27/16 16:00 98.2 109 20 133/63 97 11/27/16 12:00 97.7 95 20 123/65 98 I/O 11/27/16 11/27/16 11/27/16 11/28/16 11/28/16 11/28/16 07:00 15:00 23:00 07:00 15:00 23:00 Intake Total 875 ml 920 ml 888 ml 1175 ml 120 ml Output Total 450 ml 1700 ml 700 ml 1100 ml Balance 425 ml -780 ml 188 ml 75 ml 120 ml Intake Oral 0 ml 920 ml 120 ml 320 ml 120 ml IV Total 768 ml 855 ml TPN/PPN 625 ml Lipid 250 ml Output Urine Total 400 ml 1700 ml 700 ml 1100 ml Stool Total 50 ml # Bowel Movements 0 0 Result Diagram: 11/24/16 0330 11/28/16 0640 Imaging Last Impressions Chest X-Ray 11/19/16 0000 Signed Impressions: Service Date/Time: Saturday, November 19, 2016 13:34 - CONCLUSION: 1. No placement of right central venous line with no evidence of pneumothorax. 2. Interval placement of nasogastric tube. 3. Patchy opacity remains at the lung bases. Orion Aguilera MD Abdomen/Pelvis CT 11/19/16 0000 Signed Impressions: Service Date/Time: Saturday, November 19, 2016 20:12 - CONCLUSION: 1. Status post cystectomy with an ileal loop in the right lower quadrant. Ureteral stents are seen through the ileal loop bilaterally. No hydronephrosis is seen. 2. 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 This appearance is completely unchanged. There is an adjacent segment of small bowel herniating through this region. This is also unchanged from the prior exam. 3. Bibasilar areas of consolidation or atelectasis. 4. Status post cystectomy and suspected prostatectomy. 5. Evidence of prior granulomatous exposure. Harris Yusuf MD Central Venous Line 11/14/16 0000 Signed Impressions: Service Date/Time: Monday, November 14, 2016 16:07 - CONCLUSION: Uncomplicated line placement as above. Mando Rodriguez MD CT Angiography 11/12/16 0000 Signed Impressions: Service Date/Time: Saturday, November 12, 2016 04:09 - CONCLUSION: 1. No evidence for pulmonary embolism. 2. Abnormal patchy areas of pulmonary consolidation are noted as described above. Small pleural effusions. 3. Emphysema. Timmy Jacobson MD Lower Extremity Ultrasound 11/11/16 0000 Signed Impressions: Service Date/Time: Friday, November 11, 2016 10:03 - CONCLUSION: Negative exam with no evidence of deep venous thrombosis. Orion Aguilera MD Abdomen X-Ray 11/11/16 0000 Signed Impressions: Service Date/Time: Friday, November 11, 2016 17:02 - CONCLUSION: 1. Air distention of small bowel loops in the left upper abdominal quadrant with decompression of the visualized portions of the colon. Pattern is concerning for possible early small bowel obstruction versus focal hypodynamic ileus. This study will serve as a baseline for followup imaging. 2. Postsurgical changes characteristic of ileal conduit with bilateral double-J stents terminating in the right lower abdominal quadrant. Mando Rodriguez MD Objective Remarks GENERAL: Alert, oriented x 3, NAD. On nasal cannula 2- 3L on 2L at home. SKIN: Warm and dry. HEAD: Normocephalic. EYES: No scleral icterus. No injection or drainage. NECK: Supple, trachea midline. No JVD or lymphadenopathy. CARDIOVASCULAR: Irregularly irregular, no murmurs appreciated. RESPIRATORY: Clear lungs equal no crackles. GASTROINTESTINAL: Abdomen soft with ileal conduit and wound drainage bag. Clear yellow urine. Some erythema surrounding wounds MUSCULOSKELETAL: Trace edema. BACK: Nontender without obvious deformity. No CVA tenderness. Nonfocal Alert, awake, oriented 3, no focal deficits. Procedures 11/05/2016 Symptomatic large supraumbilical hernia. Bladder cancer requiring radical cystectomy. 11/08/2016 1. Radical cystoprostatectomy with ileal conduit. 2. Bilateral pelvic lymph node dissection. Right IJ central line A/P Problem List: (1) Acute exacerbation of chronic obstructive pulmonary disease (COPD) ICD Code: J44.1 Status: Acute (2) Bladder cancer ICD Code: C67.9 Status: Acute (3) HTN (hypertension) ICD Code: I10 Status: Acute (4) Atrial flutter ICD Code: I48.92 Status: Acute Assessment and Plan Mr. Edwards is a pleasant 70-year-old male with a history of bladder cancer, COPD, hypertension who underwent radical cystoprostatectomy, umbilical hernia repair during this admission. Hospitalist service was consulted for COPD exacerbation as well as general medical management. He developed atrial flutter with RVR. Bladder cancer - status post radical cystoscopy prostatectomy. Status post ileal conduit. Further management per urology, pain control per urology, weaned off TPN however a lot of output including gas, discussed with Dr. Huff 11/25, will back off on full liquid and restart TPN. Acute exacerbation of COPD-resolved, continue oxygen support, status post Levaquin. Continue bronchodilators. ileus vs Partial small bowel obstruction. Improved Enterocutaneous fistula. Tolerating diet. Continue wound care. Maximize nutrition with by mouth and TPN Will need repair in 8-10 weeks per GS Atrial flutter with RVR - [id number] score 2 (Age, Hx of HTN). Continue oral Cardizem and apixaban. Patient evaluated by cardiology. Stable Hypertension -Patient apparently takes Micardis at home. He isn't orthostatic secondary to anemia and BP meds. Blood pressure stable. Anemia secondary to acute blood loss. Status post transfusion with appropriate response monitor CBC. Leukocytosis. Patient no fever but has some erythema around the abdominal wound. Ct Augmentin to December 02 Fluid overload - Continue Lasix FEN. Ct TPN and diet Hyperkalemia-resolved Hyponatremia-could be from hypervolemia on Lasix. Asymptomatic Hyperglycemia secondary to TPN hx borderline DM. Follow-up A1c is 0.4. Added 40 units units regular insulin per TPN bag and ct high dose sliding scale, We' ll adjust insulin dose per glycemic trends. Hypoglycemic protocol. Improving hyperglycemia Deconditioning. Continue physical therapy, out of bed , consult case management for discharge to [facility] which declined pt DVT prophylaxis eliquis Discharge Planning Dc to [facility] when cleared by general surgery Navi Monreal MD Nov 28, 2016 09:59
[2016-11-28] MEDS: ATORVASTATIN 40 MG TAB PO SCH (20:32)
[2016-11-28] MEDS: MULTIVITAMIN INJ 10 ML, FOLIC ACID INJ 1 MG, INSULIN HUMAN REGULAR INJ 40 UNITS in AMIN... IV-CENTRAL SCH (20:32)
[2016-11-29] VITALS (8 sets, daily range): BP systolic 124–143; BP diastolic 60–69; PULSE 88–97; RESP 17–22; TEMP 97.8–98.7; O2SAT 92–98
[2016-11-29] MEDS: diphenhydrAMINE HCL 25 MG CAP PO PRN ×2 (00:27→23:08)
[2016-11-29] MEDS: INSULIN ASPART SUPPLEMENTAL SCALE SQ SCH ×4 (06:00→21:56)
[2016-11-29 07:19] LABS: BICARBONATE 31.5 MEQ/L (21.0-32.0); MAGNESIUM 2.1 MG/DL (1.5-2.5); POTASSIUM 4.1 MEQ/L (3.5-5.1)
[2016-11-29] MEDS: RESP: ALBUTEROL 2.5 MG/IPRATROPIUM 0.5 MG NEB (SCH) NEB ×2 (07:50→11:42)
[2016-11-29] MEDS: PANTOPRAZOLE SOD 40 MG DELAYED RELEASE TAB PO SCH (08:26)
[2016-11-29] MEDS: DILTIAZEM-CD 120 MG CAP ER PO SCH (08:26)
[2016-11-29] MEDS: AMOXICILLIN/CLAVULANATE K 875 MG TAB PO SCH ×2 (08:26→20:28)
[2016-11-29] MEDS: CETIRIZINE HCL 10 MG TAB PO SCH (08:27)
[2016-11-29] MEDS: APIXABAN 5 MG TABLET PO SCH ×2 (08:27→20:28)
[2016-11-29] MEDS: FUROSEMIDE 20 MG TAB PO SCH ×2 (08:27→18:16)
[2016-11-29] MEDS: SODIUM CHLORIDE 0.9% FLUSH 5 ML FLUSH IVF SCH (08:28)
[2016-11-29] MEDS: BUDESONIDE-FORMOTEROL 160/4.5 MCG INHALER INH SCH ×2 (08:28→20:27)
[2016-11-29] MEDS: SPIRIVA RESPIMAT INH SCH (09:00)
--- NOTE | 2016-11-29 09:51 | HHI.PR ---
Subjective Remarks resting comfortably with no distress. denies pain. no new complaints. Objective Vitals Vital Signs Date Time Temp Pulse Resp B/P Pulse Ox O2 Delivery O2 Flow Rate FiO2 11/29/16 08:00 97.9 88 17 135/60 95 11/29/16 07:52 92 21 11/29/16 00:00 97.9 97 20 128/65 98 11/28/16 20:00 96.9 100 18 125/59 95 11/28/16 16:09 97 Nasal Cannula 2.00 11/28/16 16:00 97.6 64 17 133/58 95 11/28/16 12:00 97.6 78 19 133/66 97 11/28/16 10:26 16 I/O 11/28/16 11/28/16 11/28/16 11/29/16 11/29/16 11/29/16 07:00 15:00 23:00 07:00 15:00 23:00 Intake Total 1175 ml 1544 ml 530 ml 999 ml 120 ml Output Total 1100 ml 1200 ml 1325 ml 1300 ml Balance 75 ml 344 ml -795 ml -301 ml 120 ml Intake Oral 320 ml 600 ml 320 ml 320 ml 120 ml IV Total 855 ml 944 ml 210 ml TPN/PPN 679 ml Output Urine Total 1100 ml 1200 ml 1325 ml 1300 ml # Bowel Movements 0 Result Diagram: 11/29/16 0630 Imaging Last Impressions Chest X-Ray 11/19/16 0000 Signed Impressions: Service Date/Time: Saturday, November 19, 2016 13:34 - CONCLUSION: 1. No placement of right central venous line with no evidence of pneumothorax. 2. Interval placement of nasogastric tube. 3. Patchy opacity remains at the lung bases. Orion Aguilera MD Abdomen/Pelvis CT 11/19/16 0000 Signed Impressions: Service Date/Time: Saturday, November 19, 2016 20:12 - CONCLUSION: 1. Status post cystectomy with an ileal loop in the right lower quadrant. Ureteral stents are seen through the ileal loop bilaterally. No hydronephrosis is seen. 2. 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 This appearance is completely unchanged. There is an adjacent segment of small bowel herniating through this region. This is also unchanged from the prior exam. 3. Bibasilar areas of consolidation or atelectasis. 4. Status post cystectomy and suspected prostatectomy. 5. Evidence of prior granulomatous exposure. Harris Yusuf MD Central Venous Line 11/14/16 0000 Signed Impressions: Service Date/Time: Monday, November 14, 2016 16:07 - CONCLUSION: Uncomplicated line placement as above. Mando Rodriguez MD CT Angiography 11/12/16 0000 Signed Impressions: Service Date/Time: Saturday, November 12, 2016 04:09 - CONCLUSION: 1. No evidence for pulmonary embolism. 2. Abnormal patchy areas of pulmonary consolidation are noted as described above. Small pleural effusions. 3. Emphysema. Timmy Jacobson MD Lower Extremity Ultrasound 11/11/16 0000 Signed Impressions: Service Date/Time: Friday, November 11, 2016 10:03 - CONCLUSION: Negative exam with no evidence of deep venous thrombosis. Orion Aguilera MD Abdomen X-Ray 11/11/16 0000 Signed Impressions: Service Date/Time: Friday, November 11, 2016 17:02 - CONCLUSION: 1. Air distention of small bowel loops in the left upper abdominal quadrant with decompression of the visualized portions of the colon. Pattern is concerning for possible early small bowel obstruction versus focal hypodynamic ileus. This study will serve as a baseline for followup imaging. 2. Postsurgical changes characteristic of ileal conduit with bilateral double-J stents terminating in the right lower abdominal quadrant. Mando Rodriguez MD Objective Remarks GENERAL: This is a well-nourished, well-developed patient, in no apparent distress. CARDIOVASCULAR: Regular rate and regular rhythm without murmurs, gallops, or rubs. RESPIRATORY: Clear to auscultation. Breath sounds equal bilaterally. No wheezes , rales, or rhonchi. GASTROINTESTINAL: Abdomen soft, non-tender, nondistended. Normal, active bowel sounds MUSCULOSKELETAL: Extremities without clubbing, cyanosis, or edema. NEURO: Alert & Oriented x4 to person, place, time, situation. Moves all ext x4 Procedures 11/05/2016 Symptomatic large supraumbilical hernia. Bladder cancer requiring radical cystectomy. 11/08/2016 1. Radical cystoprostatectomy with ileal conduit. 2. Bilateral pelvic lymph node dissection. 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 UNSCH X1 PRN SQ SEE PROTOCOL; Start 11/05/16 at 05:45; Stop 11/06/16 at 05:44; Status DC Metoprolol Tartrate 25 mg 25 mg UNSCH X1 PRN PO SEE LABEL COMMENTS; Start at 05:45; Stop 11/06/16 at 05:44; Status DC Sodium Bicarbonate (Sodium Bicarbonate 8.4% Inj) 50 ml @ As Directed STK-MED ONCE .ROUTE ; Start 11/05/16 at 06:48; Stop 11/05/16 at 06:49; Status DC Lidocaine/ Epinephrine (Xylocaine-Epi 1%-1:100,000 Inj) 30 ml STK-MED ONCE .ROUTE ; Start 11/05/16 at 06:48; Stop 11/05/16 at 06:49; Status DC Gelatin (Gelfoam 100 Top) 1 foam STK-MED ONCE .ROUTE ; Start 11/05/16 at 06:48; Stop 11/05/16 at 06:49; Status DC Bacitracin (Baciguent Oint) 15 applic STK-MED ONCE .ROUTE ; Start 11/05/16 at 06: 48; Stop 11/05/16 at 06:49; Status DC Bupivacaine HCl/ Epinephrine Bitart (Sensorcaine-Epinephrine Pf 0.5% Inj) 30 ml STK-MED ONCE .ROUTE Last administered on 11/05/16 12:00; Start 11/05/16 at 06:56 ; Stop 11/05/16 at 06:57; Status DC Albuterol/ Ipratropium (Duoneb Neb) 1 ampule STK-MED ONCE .ROUTE Last administered on 11/05/16 07:11; Start 11/05/16 at 07:11; Stop 11/05/16 at 07:12; Status DC Midazolam HCl (Versed Inj) 2 mg STK-MED ONCE .ROUTE Last administered on 07:24; Start 11/05/16 at 07:23; Stop 11/05/16 at 07:24; Status DC Fentanyl Citrate (fentaNYL INJ) 1,000 mcg STK-MED ONCE .ROUTE ; Start 11/05/16 at 07:27; Stop 11/05/16 at 07:28; Status DC Cefazolin Sodium (Ancef Inj) 2,000 mg STK-MED ONCE IV Last administered on 11:00; Start 11/05/16 at 11:00; Stop 11/05/16 at 11:08; Status DC Pantoprazole Sodium (Protonix Inj) 40 mg Q24H IV PUSH Last administered on 11/18 15:40; Start 11/05/16 at 14:00; Stop 11/18/16 at 18:40; Status DC Ondansetron HCl 4 mg 4 mg Q6HR PRN IV PUSH NAUSEA Last administered on 14:20; Start 11/05/16 at 13:00 Cefazolin Sodium 1000 mg/Sodium Chloride 100 ml @ 200 mls/hr Q8H IV Last administered on 11/07/16 08:41; Start 11/05/16 at 18:00; Stop 11/07/16 at 13:29; Status DC Gentamicin Sulfate/Sodium Chloride (Gentamicin Inj/ NS Inj) 103 ml @ 100 mls/ hr Q24H IV Last administered on 11/06/16 14:41; Start 11/05/16 at 15:00; Stop at 13:29; Status DC Acetaminophen (Ofirmev Inj) 1,000 mg Q6H IV Last administered on 11/16/16 01: 55; Start 11/05/16 at 14:00; Stop 11/16/16 at 08:26; Status DC Aspirin (Ecotrin Ec) 81 mg DAILY PO ; Start 11/06/16 at 09:00; Stop 11/06/16 at 09 :00; Status DC Atorvastatin Calcium (Lipitor) 40 mg HS PO Last administered on 11/28/16 20:32 ; Start 11/05/16 at 21:00 Cetirizine HCl (ZyrTEC) 10 mg DAILY PO Last administered on 11/29/16 08:27; Start 11/06/16 at 09:00 Losartan Potassium (Cozaar) 100 mg DAILY PO Last administered on 11/19/16 09: 04; Start 11/05/16 at 17:00; Stop 11/25/16 at 13:35; Status DC Budesonide/ Formoterol Fumarate (Symbicort 160-4.5 Inh) 1 puff BID INH Last administered on 11/29/16 08:28; Start 11/05/16 at 14:00 Patient Own Medication PT OWN MED: SPIR... DAILY INH Last administered on 08:47; Start 11/05/16 at 14:00; Stop 11/22/16 at 21:26; Status DC Fentanyl Citrate (fentaNYL INJ) 250 mcg STK-MED ONCE .ROUTE ; Start 11/05/16 at 13:05; Stop 11/05/16 at 13:06; Status DC Morphine Sulfate (*morphine INJ PERIprocedure ONLY) 8 mg STK-MED ONCE .ROUTE Last administered on 11/05/16 13:15; Start 11/05/16 at 13:15; Stop 11/05/16 at 13: 16; Status DC Morphine Sulfate (*morphine INJ PERIprocedure ONLY) 8 mg STK-MED ONCE .ROUTE Last administered on 11/05/16 13:36; Start 11/05/16 at 13:36; Stop 11/05/16 at 13: 37; Status DC Morphine Sulfate (Morphine 1 Mg/ ml RHINESTONE SETTER) 30 mg UNSCH IV Last administered on 13:00; Start 11/05/16 at 13:45; Stop 11/07/16 at 13:29; Status DC RHINESTONE SETTER Dosage Infused (Pha) 1 Q8HR .XX Last administered on 11/07/16 05:41; Start 11/05/16 at 14:00; Stop 11/07/16 at 13:29; Status DC Naloxone HCl (Narcan Inj) 0.4 mg UNSCH PRN IV RESPIRATORY RATE LESS THAN 10; Start 11/05/16 at 13:45; Stop 11/07/16 at 13:29; Status DC Miscellaneous Information ALL NURSING DEPARTME... UNSCH PRN XX SEE LABEL COMMENTS; Start 11/05/16 at 12:59; Stop 11/06/16 at 12:58; Status DC Sodium Chloride (NS 1000 ml Inj) 1,000 ml @ 83 mls/hr Q12H3M IV Last administered on 11/14/16 15:05; Start 11/05/16 at 14:00; Stop 11/15/16 at 05:47 ; Status DC Morphine Sulfate (*morphine INJ PERIprocedure ONLY) 8 mg STK-MED ONCE .ROUTE Last administered on 11/05/16 13:53; Start 11/05/16 at 13:53; Stop 11/05/16 at 13: 54; Status DC Erythromycin (Erythromycin 0.5% Opth Oint) 1 gm STK-MED ONCE .ROUTE ; Start 11/05 at 17:46; Stop 11/05/16 at 17:47; Status DC Balanced Salt Solution (Bss Opth Soln) 1 application times 1... ONCE ONCE LEFT EYE ; Start 11/05/16 at 18:00; Stop 11/05/16 at 18:01; Status DC Tetracaine HCl (Pontocaine 0.5% Opht Soln) 1 application times 1... ONCE ONCE LEFT EYE ; Start 11/05/16 at 18:00; Stop 11/05/16 at 18:01; Status DC Erythromycin (Ilotycin 0.5% Opth Oint) Instill 1/ 4 inch times 1... ONCE ONCE LEFT EYE ; Start 11/05/16 at 18:00; Stop 11/05/16 at 18:01; Status DC Non-Formulary Medication TETRACAINE 0.5% OPTH SOLN ... ONCE ONCE LEFT EYE Last administered on 11/05/16 21:07; Start 11/05/16 at 18:00; Stop 11/05/16 at 18: 01; Status DC Propofol 200 mg 200 mg STK-MED ONCE IV ; Start 11/05/16 at 12:00; Stop 11/06/16 at 11:52; Status DC Lactated Ringer's 5,000 ml @ As Directed STK-MED ONCE IV ; Start 11/05/16 at 12: 00; Stop 11/06/16 at 11:52; Status DC Sodium Chloride (NS 500 ml Inj) 500 ml @ As Directed STK-MED ONCE IV ; Start at 12:00; Stop 11/06/16 at 11:52; Status DC Ephedrine Sulfate (ePHEDrine/NS 25 MG/5 ML SYR) 25 mg STK-MED ONCE IV ; Start at 12:00; Stop 11/06/16 at 11:52; Status DC Phenylephrine HCl (Neosynephrine/ NS 1000 Mcg/10ml Syr) 1,000 mcg STK-MED ONCE IV ; Start 11/05/16 at 12:00; Stop 11/06/16 at 11:52; Status DC Morphine Sulfate (Morphine Inj) 4 mg Q3H PRN IV PUSH BREAKTHROUGH PAIN Last administered on 11/23/16 04:58; Start 11/07/16 at 13:30; Stop 11/23/16 at 09:51 ; Status DC Calcium Carbonate (Tums Chew) 1,000 mg Q6H PRN CHEW HEARTBURN Last administered on 11/21/16 02:23; Start 11/09/16 at 03:00 Promethazine HCl (Phenergan Inj) 10 mg Q6H PRN IM NAUSEA Last administered on 03:48; Start 11/09/16 at 03:45; Stop 11/25/16 at 13:35; Status DC Metoclopramide HCl (Reglan Inj) 5 mg Q8HR IV PUSH Last administered on 14:39; Start 11/10/16 at 09:00; Stop 11/13/16 at 20:00; Status DC Enalaprilat (Vasotec Inj) 1.25 mg Q6H PRN IV PUSH SBP>160, DBP>90 Last administered on 11/10/16 09:29; Start 11/10/16 at 09:00 Bisacodyl (Dulcolax Supp) 10 mg ONCE ONCE RECTAL Last administered on 09:30; Start 11/10/16 at 08:45; Stop 11/10/16 at 08:46; Status DC Albuterol/ Ipratropium (Duoneb Neb) 1 ampule Q4HR NEB PRN NEB WHEEZING Last administered on 11/11/16 04:09; Start 11/10/16 at 23:00; Stop 11/11/16 at 16:00; Status DC Furosemide (Lasix Inj) 40 mg ONCE ONCE IV PUSH Last administered on 11/11/16 13:13; Start 11/11/16 at 13:00; Stop 11/11/16 at 13:01; Status DC Furosemide (Lasix Inj) 20 mg ONCE ONCE IV PUSH ; Start 11/11/16 at 19:00; Stop 11/11/16 at 19:00; Status DC Albuterol/ Ipratropium (Duoneb Neb) 1 ampule Q4HR WHILE AWAKE NEB NEB Last administered on 11/12/16 11:04; Start 11/11/16 at 16:00; Stop 11/12/16 at 11:37; Status DC Methylprednisolone Sodium Succinate 40 mg 40 mg Q6HR IV PUSH ; Start 11/11/16 at 18:00; Stop 11/11/16 at 18:00; Status DC Levofloxacin/ Dextrose (Levaquin 750 Mg Premix Inj) 150 ml @ 100 mls/hr Q24H IV Last administered on 11/18/16 17:35; Start 11/11/16 at 18:00; Stop 11/18/16 at 18:40; Status DC Furosemide (Lasix Inj) 40 mg ONCE ONCE IV PUSH Last administered on 11/11/16 17:26; Start 11/11/16 at 17:30; Stop 11/11/16 at 17:31; Status DC Diltiazem HCl 20 mg 20 mg ONCE ONCE IVP Last administered on 11/11/16 20:23; Start 11/11/16 at 19:00; Stop 11/11/16 at 19:05; Status DC Diltiazem HCl/ Sodium Chloride (Cardizem Inj/NS Inj) 125 ml @ 0 mls/hr TITRATE IV Last administered on 11/18/16 17:37; Start 11/11/16 at 19:00; Stop 11/20/16 at 16:24; Status DC Diltiazem HCl (Cardizem Inj) 10 mg ONCE ONCE IV Last administered on 11/12/16 02:00; Start 11/12/16 at 02:00; Stop 11/12/16 at 02:01; Status DC Digoxin (Lanoxin Inj) 0.5 mg ONCE ONCE IV PUSH Last administered on 11/12/16 03:42; Start 11/12/16 at 03:30; Stop 11/12/16 at 03:32; Status DC Atropine Sulfate (Atropine Inj) 1 mg STK-MED ONCE .ROUTE ; Start 11/12/16 at 03: 48; Stop 11/12/16 at 03:49; Status DC Lidocaine HCl (Xylocaine 2% Inj) 100 mg STK-MED ONCE .ROUTE ; Start 11/12/16 at 03:48; Stop 11/12/16 at 03:49; Status DC Epinephrine HCl (EPINEPHrine (1:10,000) INJ) 1 mg STK-MED ONCE .ROUTE ; Start at 03:48; Stop 11/12/16 at 03:49; Status DC Lidocaine HCl (Xylocaine 2% Inj) 100 mg STK-MED ONCE .ROUTE ; Start 11/12/16 at 03:50; Stop 11/12/16 at 03:51; Status DC Epinephrine HCl (EPINEPHrine (1:10,000) INJ) 1 mg STK-MED ONCE .ROUTE ; Start at 03:50; Stop 11/12/16 at 03:51; Status DC Iohexol (Omnipaque 350 Inj) 70 ml STK-MED ONCE IV Last administered on 04:14; Start 11/12/16 at 04:14; Stop 11/12/16 at 04:15; Status DC Diltiazem HCl 15 mg 15 mg ONCE ONCE IV ; Start 11/12/16 at 05:15; Stop 11/12/16 at 05:16; Status DC Amiodarone HCl 150 mg/Dextrose 100 ml @ 600 mls/hr ONCE ONCE IV Last administered on 11/12/16 05:41; Start 11/12/16 at 05:15; Stop 11/12/16 at 05:24; Status DC Amiodarone HCl/ Dextrose (Cordarone Inj/ D5W ([place]) Inj) 250 ml @ 0 mls/hr CONTINUOUS IV Last administered on 11/15/16 01:24; Start 11/12/16 at 05:15; Stop 11/15/16 at 15:56; Status DC Heparin Sodium (Porcine) (Heparin Inj) 5,000 units Q12HR SQ ; Start 11/12/16 at 10:00; Stop 11/12/16 at 15:01; Status DC Furosemide (Lasix Inj) 40 mg BID@09,18 IV PUSH Last administered on 11/20/16 08:38; Start 11/12/16 at 18:00; Stop 11/21/16 at 17:25; Status DC Levalbuterol HCl 1.25 mg 1.25 mg Q6HR NEB NEB Last administered on 11/22/16 09:57; Start 11/12/16 at 11:38; Stop 11/22/16 at 10:55; Status DC Heparin Sodium/ Dextrose (Heparin-D5W Inj) 250 ml @ 0 mls/hr TITRATE IV Last administered on 11/22/16 23:09; Start 11/12/16 at 15:15; Stop 11/23/16 at 09:29 ; Status DC Heparin Sodium (Porcine) (Heparin Inj) 5,000 units UNSCH PRN IV aPTT less than 25; Start 11/12/16 at 15:15; Stop 11/23/16 at 09:30; Status DC Heparin Sodium (Porcine) (Heparin Inj) 2,500 units UNSCH PRN IV aPTT 25 to 39 Last administered on 11/17/16 08:27; Start 11/12/16 at 15:15; Stop 11/23/16 at 09:30; Status DC Heparin Sodium (Porcine) (Heparin Inj) 4,000 units ONCE ONCE IV Last administered on 11/12/16 16:40; Start 11/12/16 at 17:00; Stop 11/12/16 at 17:01; Status DC Diatrizoate Meglum/ Diatrizoate Sod ( Gastroview Liq) 18 ml ONCE ONCE PO Last administered on 11/13/16 15:03; Start 11/13/16 at 14:30; Stop 11/13/16 at 14: 31; Status DC Insulin Aspart 1 1 ACHS SLIDING SCALE SQ Last administered on 11/19/16 12:29 ; Start 11/13/16 at 21:00; Stop 11/19/16 at 14:14; Status DC Potassium Chloride (KCl 20 Meq Premix Inj) 100 ml @ 50 mls/hr ONCE ONCE IV Last administered on 11/13/16 21:53; Start 11/13/16 at 21:00; Stop 11/13/16 at 22: 59; Status DC Dextrose (D50w (Vial) Inj) 25 ml UNSCH PRN IV PUSH HYPOGLYCEMIA - SEE COMMENTS ; Start 11/13/16 at 20:30; Stop 11/25/16 at 13:39; Status DC Glucagon (Glucagon Inj) 1 mg UNSCH PRN OTHER HYPOGLYCEMIA-SEE COMMENTS; Start 11/13/16 at 20:30; Stop 11/25/16 at 13:39; Status DC IV Flush (NS Flush) DAILY IVF Last administered on 11/29/16 08:28; Start 08/21 at 09:00 IV Flush UNSCH PRN IVF SEE PROTOCOL; Start 11/14/16 at 16:45 Potassium Chloride (KCl 10 Meq Premix Inj) 100 ml @ 100 mls/hr Q1H IV Last administered on 11/14/16 22:00; Start 11/14/16 at 20:00; Stop 11/14/16 at 22:59 ; Status DC Mupirocin 1 applic 1 applic BID EACH NARE Last administered on 11/21/16 08:06 ; Start 11/14/16 at 21:00; Stop 11/21/16 at 20:59; Status DC Multivitamins 10 ml/Folic Acid 1 mg/Amino Acids/ Electrolytes/ Dextrose 2,010.2 ml @ 75 mls/hr Q24H IV-CENTRAL Last administered on 11/15/16 22:33; Start 07/21 at 20:00; Stop 11/16/16 at 11:30; Status DC Fat Emulsion Intravenous 250 ml @ 31.25 mls/ hr SuWe@20 IV-CENTRAL Last administered on 11/16/16 23:49; Start 11/16/16 at 20:00; Stop 11/17/16 at 13:12 ; Status DC Potassium Chloride (KCl 20 Meq Premix Inj) 100 ml @ 50 mls/hr Q2H IV Last administered on 11/15/16 12:00; Start 11/15/16 at 10:00; Stop 11/15/16 at 13:59 ; Status DC Benzocaine/ Menthol 1 lozenge 1 lozenge Q2H PRN BUCCAL DRY MOUTH Last administered on 11/23/16 04:58; Start 11/15/16 at 09:45 Potassium Chloride (KCl 10 Meq Premix Inj) 100 ml @ 100 mls/hr Q1H IV Last administered on 11/16/16 12:37; Start 11/16/16 at 08:45; Stop 11/16/16 at 11:44 ; Status DC Insulin Human NPH (NovoLIN N INJ) 5 units ONCE ONCE SQ Last administered on 09:37; Start 11/16/16 at 08:45; Stop 11/16/16 at 08:46; Status DC Acetaminophen 325 mg 325 mg Q4H PRN RECTAL HEADACHE, TEMPERATURE > 101; Start 11/16/16 at 08:30 Sodium Chloride/ Sodium Acetate/ Potassium Chloride/Sodium Phosphate/ Magnesium Chloride/Calcium Chloride/ Multivitamins/ Folic Acid/ Insulin Human Regular/ Amino Acids/Dextrose (Sodium Chloride 23.4% Inj/Sodium Acetate Inj/KCl Inj/ Sodium Phosphate Inj/ Magnes... 2,104.2437 ml @ 75 mls/hr Q24H IV-CENTRAL Last administered on 11/16/16 23:41; Start 11/16/16 at 20:00; Stop 11/17/16 at 13:12 ; Status DC Acetaminophen 1000 mg 1,000 mg ONCE ONCE IV Last administered on 11/16/16 23: 47; Start 11/16/16 at 21:15; Stop 11/16/16 at 21:16; Status DC Potassium Chloride 100 ml @ 50 mls/hr Q12HR IV Last administered on 11/18/16 09:36; Start 11/17/16 at 21:00; Stop 11/18/16 at 18:40; Status DC Potassium Chloride 100 ml @ 50 mls/hr Q2H IV Last administered on 11/17/16 10 :12; Start 11/17/16 at 07:30; Stop 11/17/16 at 11:29; Status DC Sodium Chloride 80 meq/Potassium Chloride 80 meq/ Sodium Phosphate 40 meq/ Magnesium Chloride 10 meq/ Calcium Chloride 9 meq/ Multivitamins 10 ml/Folic Acid 1 mg/Insulin Human Regular 20 units/ Amino Acids/ Dextrose 2,092.0937 ml @ 75 mls/hr Q24H IV-CENTRAL ; Start 11/17/16 at 20:00; Stop 11/18/16 at 19:29; Status DC Fat Emulsion Intravenous 250 ml @ 31.25 mls/ hr SuWe@20 IV-CENTRAL ; Start at 20:00; Stop 11/19/16 at 20:00; Status DC Sodium Chloride 80 meq/Potassium Chloride 80 meq/ Sodium Phosphate 60 meq/ Magnesium Chloride 10 meq/ Calcium Chloride 9 meq/ Multivitamins 10 ml/Folic Acid 1 mg/Insulin Human Regular 20 units/ Amino Acids/ Dextrose 2,097.0937 ml @ 75 mls/hr Q24H IV-CENTRAL Last administered on 11/18/16 23:19; Start 11/18/16 at 20:00; Stop 11/19/16 at 09:00; Status DC Fat Emulsion Intravenous (Liposyn Iii 20% Inj) 250 ml @ 31.25 mls/ hr SuWe@20 IV-CENTRAL Last administered on 11/19/16 21:25; Start 11/19/16 at 20:00; Stop 11/23/16 at 21:24; Status DC Pantoprazole Sodium (Protonix) 40 mg DAILY PO Last administered on 11/29/16 08 :26; Start 11/19/16 at 09:00 Diltiazem HCl (Cardizem) 30 mg QID PO Last administered on 11/25/16 19:33; Start 11/18/16 at 21:00; Stop 11/26/16 at 06:00; Status DC Potassium Chloride 20 meq 20 meq Q12HR PO Last administered on 11/20/16 20:15 ; Start 11/18/16 at 21:00; Stop 11/21/16 at 06:00; Status DC Sodium Chloride 80 meq/Potassium Chloride 80 meq/ Sodium Phosphate 40 meq/ Magnesium Chloride 10 meq/ Calcium Chloride 9 meq/ Multivitamins 10 ml/Folic Acid 1 mg/Insulin Human Regular 25 units/ Amino Acids/ Dextrose 2,092.1437 ml @ 75 mls/hr Q24H IV-CENTRAL ; Start 11/18/16 at 19:29; Stop 11/18/16 at 19:31; Status DC Sodium Chloride 80 meq/Potassium Chloride 80 meq/ Sodium Phosphate 40 meq/ Magnesium Chloride 10 meq/ Calcium Chloride 9 meq/ Multivitamins 10 ml/Folic Acid 1 mg/Insulin Human Regular 25 units/ Amino Acids/ Dextrose 2,092.1437 ml @ 75 mls/hr Q24H IV-CENTRAL ; Start 11/19/16 at 20:00; Stop 11/19/16 at 20:00; Status DC Piperacillin Sod/ Tazobactam Sod (Zosyn 4.5 Gm Premix) 100 ml @ 200 mls/hr Q6H IV Last administered on 11/21/16 08:06; Start 11/19/16 at 14:00; Stop at 12:58; Status DC Insulin Aspart 1 1 ACHS SLIDING SCALE SQ Last administered on 11/23/16 06:23 ; Start 11/19/16 at 16:00; Stop 11/23/16 at 14:58; Status DC Sodium Chloride/ Potassium Chloride/Sodium Phosphate/ Magnesium Chloride/ Calcium Chloride/ Multivitamins/ Folic Acid/ Insulin Human Regular/Amino Acids/ Dextrose (Sodium Chloride 23.4% Inj/KCl Inj/ Sodium Phosphate Inj/Magnesium Chloride Inj/ Calcium Chloride Inj/Mvi-12 I... 2,092.2137 ml @ 75 mls/hr Q24H IV -CENTRAL Last administered on 11/19/16 20:50; Start 11/19/16 at 20:00; Stop at 20:00; Status DC Albuterol Sulfate (Albuterol Neb) 0.63 mg Q4HR NEB PRN NEB sob; Start 11/20/16 at 07:30 Insulin Detemir 10 units 10 units NOW ONCE SQ Last administered on 11/20/16 08:39; Start 11/20/16 at 07:45; Stop 11/20/16 at 07:53; Status DC Sodium Chloride 80 meq/Potassium Chloride 80 meq/ Sodium Phosphate 40 meq/ Magnesium Chloride 10 meq/ Calcium Chloride 9 meq/ Multivitamins 10 ml/Folic Acid 1 mg/Insulin Human Regular 40 units/ Amino Acids/ Dextrose 2,092.2937 ml @ 75 mls/hr Q24H IV-CENTRAL Last administered on 11/20/16 22:58; Start 11/20/16 at 20:00; Stop 11/21/16 at 06:03; Status DC Diltiazem HCl/ Sodium Chloride (Cardizem Inj/NS Inj) 125 ml @ 0 mls/hr TITRATE PRN IV RVR > 120 for 20 mins; Start 11/20/16 at 16:30; Stop 11/23/16 at 09:30; Status DC Insulin Detemir 12 units 12 units NOW ONCE SQ ; Start 11/21/16 at 06:00; Stop 11/21/16 at 06:04; Status DC Sodium Chloride 80 meq/Potassium Chloride 40 meq/ Sodium Phosphate 40 meq/ Magnesium Chloride 10 meq/ Calcium Chloride 9 meq/ Multivitamins 10 ml/Folic Acid 1 mg/Insulin Human Regular 40 units/ Amino Acids/ Dextrose 2,072.2937 ml @ 75 mls/hr Q24H IV-CENTRAL ; Start 11/21/16 at 06:15; Stop 11/21/16 at 06:38; Status DC Sodium Chloride/ Potassium Chloride/Sodium Phosphate/ Magnesium Chloride/ Calcium Chloride/ Multivitamins/ Folic Acid/ Insulin Human Regular/Amino Acids/ Dextrose (Sodium Chloride 23.4% Inj/KCl Inj/ Sodium Phosphate Inj/Magnesium Chloride Inj/ Calcium Chloride Inj/Mvi-12 I... 2,072.2937 ml @ 75 mls/hr Q24H IV -CENTRAL Last administered on 11/21/16 20:24; Start 11/21/16 at 20:00; Stop at 09:38; Status DC Diphenhydramine HCl (Benadryl) 25 mg HS PRN PO insomnia Last administered on 00:27; Start 11/21/16 at 10:30 Furosemide (Lasix Inj) 10 mg BID@09,18 IV PUSH Last administered on 11/23/16 09:25; Start 11/21/16 at 18:00; Stop 11/23/16 at 09:30; Status DC Insulin Detemir 10 units 10 units NOW ONCE SQ Last administered on 11/22/16 09:53; Start 11/22/16 at 09:00; Stop 11/22/16 at 09:09; Status DC Sodium Chloride/ Potassium Chloride/Sodium Phosphate/ Magnesium Chloride/ Calcium Chloride/ Multivitamins/ Folic Acid/ Insulin Human Regular/Amino Acids/ Dextrose (Sodium Chloride 23.4% Inj/KCl Inj/ Sodium Phosphate Inj/Magnesium Chloride Inj/ Calcium Chloride Inj/Mvi-12 I... 2,062.2937 ml @ 75 mls/hr Q24H IV -CENTRAL ; Start 11/22/16 at 20:00; Stop 11/22/16 at 20:00; Status DC Albuterol/ Ipratropium 1 ampule 1 ampule QID NEB NEB Last administered on 11/29 07:50; Start 11/22/16 at 12:00 Sodium Chloride/ Potassium Chloride/Sodium Phosphate/ Magnesium Chloride/ Calcium Chloride/ Multivitamins/ Folic Acid/ Insulin Human Regular/Amino Acids/ Dextrose (Sodium Chloride 23.4% Inj/KCl Inj/ Sodium Phosphate Inj/Magnesium Chloride Inj/ Calcium Chloride Inj/Mvi-12 I... 1,036.2469 ml @ 40 mls/hr Q24H IV -CENTRAL Last administered on 11/22/16 20:12; Start 11/22/16 at 20:00; Stop at 21:24; Status DC Alteplase, Recombinant (Cathflo Activase Inj) 6 mg UNSCH X1 IV FLUSH Last administered on 11/22/16 18:01; Start 11/22/16 at 17:15; Stop 11/22/16 at 21:00 ; Status DC Patient Own Medication PT OWN MED: SPIR... DAILY INH Last administered on 09:22; Start 11/23/16 at 09:00 Apixaban (Eliquis) 5 mg BID PO Last administered on 11/29/16 08:27; Start at 10:00 Furosemide (Lasix) 20 mg BID@09,18 PO Last administered on 11/29/16 08:27; Start 11/23/16 at 18:00 Oxycodone/ Acetaminophen 2 tab 2 tab Q6H PRN PO PAIN SCALE 6 TO 10 Last administered on 11/28/16 09:26; Start 11/23/16 at 10:00 Cefazolin Sodium/ Sodium Chloride (Ancef Inj/NS Inj) 100 ml @ 200 mls/hr Q8H IV Last administered on 11/25/16 11:00; Start 11/23/16 at 11:00; Stop at 13:41; Status DC Insulin Aspart (NovoLOG SUPPLEMENTAL SCALE) 1 ACHS SLIDING SCALE SQ Last administered on 11/25/16 11:00; Start 11/23/16 at 16:00; Stop 11/25/16 at 13:39 ; Status DC Diltiazem HCl (Cardizem Cd) 120 mg DAILY PO Last administered on 11/29/16 08: 26; Start 11/26/16 at 09:00 Insulin Aspart (NovoLOG SUPPLEMENTAL SCALE) 1 ACHS SLIDING SCALE SQ Last administered on 11/26/16 06:19; Start 11/25/16 at 16:00; Stop 11/26/16 at 09:10 ; Status DC Amoxicillin/ Clavulanate Potassium 875 mg 875 mg Q12HR PO Last administered on 11/29/16 08:26; Start 11/25/16 at 21:00; Stop 12/02/16 at 20:59 Multivitamins 10 ml/Folic Acid 1 mg/Amino Acids/ Electrolytes/ Dextrose 2,010.2 ml @ 75 mls/hr Q24H IV-CENTRAL Last administered on 11/25/16 19:31; Start at 20:00; Stop 11/26/16 at 14:15; Status DC Fat Emulsion Intravenous (Liposyn Iii 20% Inj) 250 ml @ 31.25 mls/ hr SuWe@20 IV-CENTRAL Last administered on 11/26/16 20:47; Start 11/26/16 at 20:00 Insulin Aspart (NovoLOG SUPPLEMENTAL SCALE) 1 ACHS SLIDING SCALE SQ Last administered on 11/29/16 06:00; Start 11/26/16 at 11:00 Dextrose (D50w (Vial) Inj) 25 ml UNSCH PRN IV PUSH HYPOGLYCEMIA-SEE COMMENTS; Start 11/26/16 at 09:15 Glucagon 1 mg 1 mg UNSCH PRN OTHER HYPOGLYCEMIA-SEE COMMENTS; Start 11/26/16 at 09:15 Multivitamins/ Folic Acid/ Insulin Human Regular/Amino Acids/ Electrolytes/ Dextrose (Mvi-12 Inj/ Folvite Inj/ NovoLIN R INJ/ Clinimix E 02/26) 2,010.6 ml @ 75 mls/hr Q24H IV-CENTRAL Last administered on 11/28/16 20:32; Start at 20:00 A/P Assessment and Plan A/P Bladder cancer - status post radical cystoscopy prostatectomy. Status post ileal conduit. Further management per urology, pain control per urology, weaned off TPN however a lot of output including gas. previously discussed with Dr. Huff 11/25, will back off on full liquid and restarted TPN. Acute exacerbation of COPD-resolved, continue oxygen support, status post Levaquin. Continue bronchodilators. ileus vs Partial small bowel obstruction. Improved Enterocutaneous fistula. Tolerating diet. Continue wound care. Maximize nutrition with by mouth and TPN- Will need repair in 8-10 weeks per GS Atrial flutter with RVR - [id number] score 2 (Age, Hx of HTN). Continue oral Cardizem and apixaban. Patient evaluated by cardiology. Stable Hypertension -Patient apparently takes Micardis at home. He isn't orthostatic secondary to anemia and BP meds. Blood pressure stable. Anemia secondary to acute blood loss. Status post transfusion with appropriate response monitor CBC. Leukocytosis. Patient no fever but has some erythema around the abdominal wound. Ct Augmentin to December 02 Fluid overload - Continue Lasix FEN. Ct TPN and diet Hyperkalemia-resolved Hyponatremia-could be from hypervolemia on Lasix. Asymptomatic Hyperglycemia secondary to TPN hx borderline DM. Follow-up A1c is 6.4. Added 40 units units regular insulin per TPN bag and ct high dose sliding scale, We' ll adjust insulin dose per glycemic trends. Hypoglycemic protocol. Deconditioning. Continue physical therapy, out of bed , consult case management for discharge to [place] which declined pt DVT prophylaxis Preet Rivera MD Nov 29, 2016 09:51
[2016-11-29] MEDS: MULTIVITAMIN INJ 10 ML, FOLIC ACID INJ 1 MG, INSULIN HUMAN REGULAR INJ 40 UNITS in AMIN... IV-CENTRAL SCH (20:27)
[2016-11-29] MEDS: ATORVASTATIN 40 MG TAB PO SCH (20:28)
--- NOTE | 2016-11-29 23:06 | HHI.PR ---
Subjective Subjective Notes no new c/o Objective Vitals/I&O Vital Signs Date Time Temp Pulse Resp B/P Pulse Ox O2 Delivery O2 Flow Rate FiO2 11/29/16 22:38 98.4 92 22 125/69 96 11/29/16 07:52 21 11/28/16 16:09 Nasal Cannula 2.00 Labs Laboratory Tests Test 11/29/16 06:30 Sodium Level 133 Potassium Level 4.1 Chloride Level 94 Carbon Dioxide Level 31.5 Anion Gap 8 Blood Urea Nitrogen 17 Creatinine 0.75 Estimat Glomerular Filtration 103 Rate Random Glucose 191 Calcium Level 8.3 Magnesium Level 2.1 Abdomen: Non-distended, Non-tender Narrative Exam ostomy appliance intact, no signs of infection A/P Assessment and Plan 70 year old male s/p radical cystectomy and ileo conduit (by Urology); s/p UHR ( by General Surgery) -Continue wound management bag for wound drainage and connect to wound draining bag; Appreciate Wound Care team -on fulls + Ensure -OOB daily and ambulate in room and hallway -patient should remain in the acute hospital setting for now due to complexity of wounds - discharge when wounds are capable of being cared for by Everett Gleason MD Nov 29, 2016 23:06
[2016-11-30] VITALS (7 sets, daily range): BP systolic 113–137; BP diastolic 49–94; PULSE 75–90; RESP 17–22; TEMP 96.7–98.4; O2SAT 95–98
[2016-11-30] MEDS: oxyCODONE/ACETAMINOPHEN 5 MG/325 MG TAB PO PRN ×2 (02:07→23:30)
[2016-11-30] MEDS: INSULIN ASPART SUPPLEMENTAL SCALE SQ SCH ×4 (06:33→21:52)
[2016-11-30] MEDS: PANTOPRAZOLE SOD 40 MG DELAYED RELEASE TAB PO SCH (08:17)
[2016-11-30] MEDS: SODIUM CHLORIDE 0.9% FLUSH 5 ML FLUSH IVF SCH (08:17)
[2016-11-30] MEDS: CETIRIZINE HCL 10 MG TAB PO SCH (08:17)
[2016-11-30] MEDS: APIXABAN 5 MG TABLET PO SCH ×2 (08:17→21:41)
[2016-11-30] MEDS: FUROSEMIDE 20 MG TAB PO SCH ×2 (08:17→16:41)
[2016-11-30] MEDS: DILTIAZEM-CD 120 MG CAP ER PO SCH (08:17)
[2016-11-30] MEDS: AMOXICILLIN/CLAVULANATE K 875 MG TAB PO SCH ×2 (08:17→21:41)
[2016-11-30] MEDS: SPIRIVA RESPIMAT INH SCH (08:18)
[2016-11-30] MEDS: BUDESONIDE-FORMOTEROL 160/4.5 MCG INHALER INH SCH ×2 (08:18→21:41)
--- NOTE | 2016-11-30 09:16 | HHI.PR ---
Subjective Remarks patient stated he is doing well. Denied any pain or any concerns. Tolerated clear liquid diet. no acute events overnight. Objective Vitals Vital Signs Date Time Temp Pulse Resp B/P Pulse Ox O2 Delivery O2 Flow Rate FiO2 11/30/16 08:00 97.8 77 18 126/56 95 11/30/16 04:20 98.1 90 22 132/69 98 11/30/16 00:29 98.3 88 22 137/94 98 11/29/16 22:38 98.4 92 22 125/69 96 11/29/16 20:58 96 11/29/16 19:34 92 11/29/16 16:00 98.7 93 17 143/66 98 11/29/16 12:00 97.8 93 18 124/60 96 I/O 11/29/16 11/29/16 11/29/16 11/30/16 11/30/16 11/30/16 07:00 15:00 23:00 07:00 15:00 23:00 Intake Total 999 ml 1195 ml 858 ml 647 ml 120 ml Output Total 1300 ml 1500 ml 1800 ml Balance -301 ml -305 ml -942 ml 647 ml 120 ml Intake Oral 320 ml 600 ml 360 ml 120 ml TPN/PPN 679 ml 595 ml 498 ml 647 ml Output Urine Total 1300 ml 1500 ml 1800 ml Result Diagram: 11/29/16629 Objective Remarks Gen NAD CV RRR. no r.m.g Abd ostomy bag in place. no TTP of abdomen Procedures 11/05/2016 Symptomatic large supraumbilical hernia. Bladder cancer requiring radical cystectomy. 11/08/2016 1. Radical cystoprostatectomy with ileal conduit. 2. Bilateral pelvic lymph node dissection. Right IJ central line Medications and IVs Current Medications Cefazolin Sodium/ Dextrose 50 ml @ 100 mls/hr DRAMA CRITIC IV Last administered on 11/05/16 06:54; Start 11/05/16 at 06:30; Stop 11/06/16 at 06:29; Status DC Lactated Ringer's 1,000 ml @ 30 mls/hr Q24H IV Last administered on 11/05/16 06:15; Start 11/05/16 at 07:30; Stop 11/11/16 at 12:30; Status DC Sodium Chloride (NS 500 ml Inj) 500 ml @ 30 mls/hr [id number] IV ; Start 11/05/16 at 07:30; Stop 11/06/16 at 07:29; Status DC Insulin Human Regular (NovoLIN R INJ) See Protocol Table ... UNSCH X1 PRN SQ SEE PROTOCOL; Start 11/05/16 at 05:45; Stop 11/06/16 at 05:44; Status DC Metoprolol Tartrate 25 mg 25 mg UNSCH X1 PRN PO SEE LABEL COMMENTS; Start at 05:45; Stop 11/06/16 at 05:44; Status DC Sodium Bicarbonate (Sodium Bicarbonate 8.4% Inj) 50 ml @ As Directed STK-MED ONCE .ROUTE ; Start 11/05/16 at 06:48; Stop 11/05/16 at 06:49; Status DC Lidocaine/ Epinephrine (Xylocaine-Epi 1%-1:100,000 Inj) 30 ml STK-MED ONCE .ROUTE ; Start 11/05/16 at 06:48; Stop 11/05/16 at 06:49; Status DC Gelatin (Gelfoam 100 Top) 1 foam STK-MED ONCE .ROUTE ; Start 11/05/16 at 06:48; Stop 11/05/16 at 06:49; Status DC Bacitracin (Baciguent Oint) 15 applic STK-MED ONCE .ROUTE ; Start 11/05/16 at 06: 48; Stop 11/05/16 at 06:49; Status DC Bupivacaine HCl/ Epinephrine Bitart (Sensorcaine-Epinephrine Pf 0.5% Inj) 30 ml STK-MED ONCE .ROUTE Last administered on 11/05/16 12:00; Start 11/05/16 at 06:56 ; Stop 11/05/16 at 06:57; Status DC Albuterol/ Ipratropium (Duoneb Neb) 1 ampule STK-MED ONCE .ROUTE Last administered on 11/05/16 07:11; Start 11/05/16 at 07:11; Stop 11/05/16 at 07:12; Status DC Midazolam HCl (Versed Inj) 2 mg STK-MED ONCE .ROUTE Last administered on 07:24; Start 11/05/16 at 07:23; Stop 11/05/16 at 07:24; Status DC Fentanyl Citrate (fentaNYL INJ) 1,000 mcg STK-MED ONCE .ROUTE ; Start 11/05/16 at 07:27; Stop 11/05/16 at 07:28; Status DC Cefazolin Sodium (Ancef Inj) 2,000 mg STK-MED ONCE IV Last administered on 11:00; Start 11/05/16 at 11:00; Stop 11/05/16 at 11:08; Status DC Pantoprazole Sodium (Protonix Inj) 40 mg Q24H IV PUSH Last administered on 11/18 15:40; Start 11/05/16 at 14:00; Stop 11/18/16 at 18:40; Status DC Ondansetron HCl 4 mg 4 mg Q6HR PRN IV PUSH NAUSEA Last administered on 14:20; Start 11/05/16 at 13:00 Cefazolin Sodium 1000 mg/Sodium Chloride 100 ml @ 200 mls/hr Q8H IV Last administered on 11/07/16 08:41; Start 11/05/16 at 18:00; Stop 11/07/16 at 13:29; Status DC Gentamicin Sulfate/Sodium Chloride (Gentamicin Inj/ NS Inj) 103 ml @ 100 mls/ hr Q24H IV Last administered on 11/06/16 14:41; Start 11/05/16 at 15:00; Stop at 13:29; Status DC Acetaminophen (Ofirmev Inj) 1,000 mg Q6H IV Last administered on 11/16/16 01: 55; Start 11/05/16 at 14:00; Stop 11/16/16 at 08:26; Status DC Aspirin (Ecotrin Ec) 81 mg DAILY PO ; Start 11/06/16 at 09:00; Stop 11/06/16 at 09 :00; Status DC Atorvastatin Calcium (Lipitor) 40 mg HS PO Last administered on 11/29/16 20:28 ; Start 11/05/16 at 21:00 Cetirizine HCl (ZyrTEC) 10 mg DAILY PO Last administered on 11/30/16 08:17; Start 11/06/16 at 09:00 Losartan Potassium (Cozaar) 100 mg DAILY PO Last administered on 11/19/16 09: 04; Start 11/05/16 at 17:00; Stop 11/25/16 at 13:35; Status DC Budesonide/ Formoterol Fumarate (Symbicort 160-4.5 Inh) 1 puff BID INH Last administered on 11/30/16 08:18; Start 11/05/16 at 14:00 Patient Own Medication PT OWN MED: SPIR... DAILY INH Last administered on 08:47; Start 11/05/16 at 14:00; Stop 11/22/16 at 21:26; Status DC Fentanyl Citrate (fentaNYL INJ) 250 mcg STK-MED ONCE .ROUTE ; Start 11/05/16 at 13:05; Stop 11/05/16 at 13:06; Status DC Morphine Sulfate (*morphine INJ PERIprocedure ONLY) 8 mg STK-MED ONCE .ROUTE Last administered on 11/05/16 13:15; Start 11/05/16 at 13:15; Stop 11/05/16 at 13: 16; Status DC Morphine Sulfate (*morphine INJ PERIprocedure ONLY) 8 mg STK-MED ONCE .ROUTE Last administered on 11/05/16 13:36; Start 11/05/16 at 13:36; Stop 11/05/16 at 13: 37; Status DC Morphine Sulfate (Morphine 1 Mg/ ml NPS) 30 mg UNSCH IV Last administered on 13:00; Start 11/05/16 at 13:45; Stop 11/07/16 at 13:29; Status DC NPS Dosage Infused (Pha) 1 Q8HR .XX Last administered on 11/07/16 05:41; Start 11/05/16 at 14:00; Stop 11/07/16 at 13:29; Status DC Naloxone HCl (Narcan Inj) 0.4 mg UNSCH PRN IV RESPIRATORY RATE LESS THAN 10; Start 11/05/16 at 13:45; Stop 11/07/16 at 13:29; Status DC Miscellaneous Information ALL NURSING DEPARTME... UNSCH PRN XX SEE LABEL COMMENTS; Start 11/05/16 at 12:59; Stop 11/06/16 at 12:58; Status DC Sodium Chloride (NS 1000 ml Inj) 1,000 ml @ 83 mls/hr Q12H3M IV Last administered on 11/14/16 15:05; Start 11/05/16 at 14:00; Stop 11/15/16 at 05:47 ; Status DC Morphine Sulfate (*morphine INJ PERIprocedure ONLY) 8 mg STK-MED ONCE .ROUTE Last administered on 11/05/16 13:53; Start 11/05/16 at 13:53; Stop 11/05/16 at 13: 54; Status DC Erythromycin (Erythromycin 0.5% Opth Oint) 1 gm STK-MED ONCE .ROUTE ; Start 11/05 at 17:46; Stop 11/05/16 at 17:47; Status DC Balanced Salt Solution (Bss Opth Soln) 1 application times 1... ONCE ONCE LEFT EYE ; Start 11/05/16 at 18:00; Stop 11/05/16 at 18:01; Status DC Tetracaine HCl (Pontocaine 0.5% Opht Soln) 1 application times 1... ONCE ONCE LEFT EYE ; Start 11/05/16 at 18:00; Stop 11/05/16 at 18:01; Status DC Erythromycin (Ilotycin 0.5% Opth Oint) Instill 1/ 4 inch times 1... ONCE ONCE LEFT EYE ; Start 11/05/16 at 18:00; Stop 11/05/16 at 18:01; Status DC Non-Formulary Medication TETRACAINE 0.5% OPTH SOLN ... ONCE ONCE LEFT EYE Last administered on 11/05/16 21:07; Start 11/05/16 at 18:00; Stop 11/05/16 at 18: 01; Status DC Propofol 200 mg 200 mg STK-MED ONCE IV ; Start 11/05/16 at 12:00; Stop 11/06/16 at 11:52; Status DC Lactated Ringer's 5,000 ml @ As Directed STK-MED ONCE IV ; Start 11/05/16 at 12: 00; Stop 11/06/16 at 11:52; Status DC Sodium Chloride (NS 500 ml Inj) 500 ml @ As Directed STK-MED ONCE IV ; Start at 12:00; Stop 11/06/16 at 11:52; Status DC Ephedrine Sulfate (ePHEDrine/NS 25 MG/5 ML SYR) 25 mg STK-MED ONCE IV ; Start at 12:00; Stop 11/06/16 at 11:52; Status DC Phenylephrine HCl (Neosynephrine/ NS 1000 Mcg/10ml Syr) 1,000 mcg STK-MED ONCE IV ; Start 11/05/16 at 12:00; Stop 11/06/16 at 11:52; Status DC Morphine Sulfate (Morphine Inj) 4 mg Q3H PRN IV PUSH BREAKTHROUGH PAIN Last administered on 11/23/16 04:58; Start 11/07/16 at 13:30; Stop 11/23/16 at 09:51 ; Status DC Calcium Carbonate (Tums Chew) 1,000 mg Q6H PRN CHEW HEARTBURN Last administered on 11/21/16 02:23; Start 11/09/16 at 03:00 Promethazine HCl (Phenergan Inj) 10 mg Q6H PRN IM NAUSEA Last administered on 03:48; Start 11/09/16 at 03:45; Stop 11/25/16 at 13:35; Status DC Metoclopramide HCl (Reglan Inj) 5 mg Q8HR IV PUSH Last administered on 14:39; Start 11/10/16 at 09:00; Stop 11/13/16 at 20:00; Status DC Enalaprilat (Vasotec Inj) 1.25 mg Q6H PRN IV PUSH SBP>160, DBP>90 Last administered on 11/10/16 09:29; Start 11/10/16 at 09:00 Bisacodyl (Dulcolax Supp) 10 mg ONCE ONCE RECTAL Last administered on 09:30; Start 11/10/16 at 08:45; Stop 11/10/16 at 08:46; Status DC Albuterol/ Ipratropium (Duoneb Neb) 1 ampule Q4HR NEB PRN NEB WHEEZING Last administered on 11/11/16 04:09; Start 11/10/16 at 23:00; Stop 11/11/16 at 16:00; Status DC Furosemide (Lasix Inj) 40 mg ONCE ONCE IV PUSH Last administered on 11/11/16 13:13; Start 11/11/16 at 13:00; Stop 11/11/16 at 13:01; Status DC Furosemide (Lasix Inj) 20 mg ONCE ONCE IV PUSH ; Start 11/11/16 at 19:00; Stop 11/11/16 at 19:00; Status DC Albuterol/ Ipratropium (Duoneb Neb) 1 ampule Q4HR WHILE AWAKE NEB NEB Last administered on 11/12/16 11:04; Start 11/11/16 at 16:00; Stop 11/12/16 at 11:37; Status DC Methylprednisolone Sodium Succinate 40 mg 40 mg Q6HR IV PUSH ; Start 11/11/16 at 18:00; Stop 11/11/16 at 18:00; Status DC Levofloxacin/ Dextrose (Levaquin 750 Mg Premix Inj) 150 ml @ 100 mls/hr Q24H IV Last administered on 11/18/16 17:35; Start 11/11/16 at 18:00; Stop 11/18/16 at 18:40; Status DC Furosemide (Lasix Inj) 40 mg ONCE ONCE IV PUSH Last administered on 11/11/16 17:26; Start 11/11/16 at 17:30; Stop 11/11/16 at 17:31; Status DC Diltiazem HCl 20 mg 20 mg ONCE ONCE IVP Last administered on 11/11/16 20:23; Start 11/11/16 at 19:00; Stop 11/11/16 at 19:05; Status DC Diltiazem HCl/ Sodium Chloride (Cardizem Inj/NS Inj) 125 ml @ 0 mls/hr TITRATE IV Last administered on 11/18/16 17:37; Start 11/11/16 at 19:00; Stop 11/20/16 at 16:24; Status DC Diltiazem HCl (Cardizem Inj) 10 mg ONCE ONCE IV Last administered on 11/12/16 02:00; Start 11/12/16 at 02:00; Stop 11/12/16 at 02:01; Status DC Digoxin (Lanoxin Inj) 0.5 mg ONCE ONCE IV PUSH Last administered on 11/12/16 03:42; Start 11/12/16 at 03:30; Stop 11/12/16 at 03:32; Status DC Atropine Sulfate (Atropine Inj) 1 mg STK-MED ONCE .ROUTE ; Start 11/12/16 at 03: 48; Stop 11/12/16 at 03:49; Status DC Lidocaine HCl (Xylocaine 2% Inj) 100 mg STK-MED ONCE .ROUTE ; Start 11/12/16 at 03:48; Stop 11/12/16 at 03:49; Status DC Epinephrine HCl (EPINEPHrine (1:10,000) INJ) 1 mg STK-MED ONCE .ROUTE ; Start at 03:48; Stop 11/12/16 at 03:49; Status DC Lidocaine HCl (Xylocaine 2% Inj) 100 mg STK-MED ONCE .ROUTE ; Start 11/12/16 at 03:50; Stop 11/12/16 at 03:51; Status DC Epinephrine HCl (EPINEPHrine (1:10,000) INJ) 1 mg STK-MED ONCE .ROUTE ; Start at 03:50; Stop 11/12/16 at 03:51; Status DC Iohexol (Omnipaque 350 Inj) 70 ml STK-MED ONCE IV Last administered on 04:14; Start 11/12/16 at 04:14; Stop 11/12/16 at 04:15; Status DC Diltiazem HCl 15 mg 15 mg ONCE ONCE IV ; Start 11/12/16 at 05:15; Stop 11/12/16 at 05:16; Status DC Amiodarone HCl 150 mg/Dextrose 100 ml @ 600 mls/hr ONCE ONCE IV Last administered on 11/12/16 05:41; Start 11/12/16 at 05:15; Stop 11/12/16 at 05:24; Status DC Amiodarone HCl/ Dextrose (Cordarone Inj/ D5W (Alvarado) Inj) 250 ml @ 0 mls/hr CONTINUOUS IV Last administered on 11/15/16 01:24; Start 11/12/16 at 05:15; Stop 11/15/16 at 15:56; Status DC Heparin Sodium (Porcine) (Heparin Inj) 5,000 units Q12HR SQ ; Start 11/12/16 at 10:00; Stop 11/12/16 at 15:01; Status DC Furosemide (Lasix Inj) 40 mg BID@09,18 IV PUSH Last administered on 11/20/16 08:38; Start 11/12/16 at 18:00; Stop 11/21/16 at 17:25; Status DC Levalbuterol HCl 1.25 mg 1.25 mg Q6HR NEB NEB Last administered on 2/18/17at 09:57; Start 11/12/16 at 11:38; Stop 11/22/16 at 10:55; Status DC Heparin Sodium/ Dextrose (Heparin-D5W Inj) 250 ml @ 0 mls/hr TITRATE IV Last administered on 11/22/16 23:09; Start 11/12/16 at 15:15; Stop 11/23/16 at 09:29 ; Status DC Heparin Sodium (Porcine) (Heparin Inj) 5,000 units UNSCH PRN IV aPTT less than 25; Start 11/12/16 at 15:15; Stop 11/23/16 at 09:30; Status DC Heparin Sodium (Porcine) (Heparin Inj) 2,500 units UNSCH PRN IV aPTT 25 to 39 Last administered on 11/17/16 08:27; Start 11/12/16 at 15:15; Stop 11/23/16 at 09:30; Status DC Heparin Sodium (Porcine) (Heparin Inj) 4,000 units ONCE ONCE IV Last administered on 11/12/16 16:40; Start 11/12/16 at 17:00; Stop 11/12/16 at 17:01; Status DC Diatrizoate Meglum/ Diatrizoate Sod ( Gastroview Liq) 18 ml ONCE ONCE PO Last administered on 11/13/16 15:03; Start 11/13/16 at 14:30; Stop 11/13/16 at 14: 31; Status DC Insulin Aspart 1 1 ACHS SLIDING SCALE SQ Last administered on 11/19/16 12:29 ; Start 11/13/16 at 21:00; Stop 11/19/16 at 14:14; Status DC Potassium Chloride (KCl 20 Meq Premix Inj) 100 ml @ 50 mls/hr ONCE ONCE IV Last administered on 11/13/16 21:53; Start 11/13/16 at 21:00; Stop 11/13/16 at 22: 59; Status DC Dextrose (D50w (Vial) Inj) 25 ml UNSCH PRN IV PUSH HYPOGLYCEMIA - SEE COMMENTS ; Start 11/13/16 at 20:30; Stop 11/25/16 at 13:39; Status DC Glucagon (Glucagon Inj) 1 mg UNSCH PRN OTHER HYPOGLYCEMIA-SEE COMMENTS; Start 11/13/16 at 20:30; Stop 11/25/16 at 13:39; Status DC IV Flush (NS Flush) DAILY IVF Last administered on 11/30/16 08:17; Start 08/21 at 09:00 IV Flush UNSCH PRN IVF SEE PROTOCOL; Start 11/14/16 at 16:45 Potassium Chloride (KCl 10 Meq Premix Inj) 100 ml @ 100 mls/hr Q1H IV Last administered on 11/14/16 22:00; Start 11/14/16 at 20:00; Stop 11/14/16 at 22:59 ; Status DC Mupirocin 1 applic 1 applic BID EACH NARE Last administered on 11/21/16 08:06 ; Start 11/14/16 at 21:00; Stop 11/21/16 at 20:59; Status DC Multivitamins 10 ml/Folic Acid 1 mg/Amino Acids/ Electrolytes/ Dextrose 2,010.2 ml @ 75 mls/hr Q24H IV-CENTRAL Last administered on 11/15/16 22:33; Start 07/21 at 20:00; Stop 11/16/16 at 11:30; Status DC Fat Emulsion Intravenous 250 ml @ 31.25 mls/ hr SuWe@20 IV-CENTRAL Last administered on 11/16/16 23:49; Start 11/16/16 at 20:00; Stop 11/17/16 at 13:12 ; Status DC Potassium Chloride (KCl 20 Meq Premix Inj) 100 ml @ 50 mls/hr Q2H IV Last administered on 11/15/16 12:00; Start 11/15/16 at 10:00; Stop 11/15/16 at 13:59 ; Status DC Benzocaine/ Menthol 1 lozenge 1 lozenge Q2H PRN BUCCAL DRY MOUTH Last administered on 11/23/16 04:58; Start 11/15/16 at 09:45 Potassium Chloride (KCl 10 Meq Premix Inj) 100 ml @ 100 mls/hr Q1H IV Last administered on 11/16/16 12:37; Start 11/16/16 at 08:45; Stop 11/16/16 at 11:44 ; Status DC Insulin Human NPH (NovoLIN N INJ) 5 units ONCE ONCE SQ Last administered on 09:37; Start 11/16/16 at 08:45; Stop 11/16/16 at 08:46; Status DC Acetaminophen 325 mg 325 mg Q4H PRN RECTAL HEADACHE, TEMPERATURE > 101; Start 11/16/16 at 08:30 Sodium Chloride/ Sodium Acetate/ Potassium Chloride/Sodium Phosphate/ Magnesium Chloride/Calcium Chloride/ Multivitamins/ Folic Acid/ Insulin Human Regular/ Amino Acids/Dextrose (Sodium Chloride 23.4% Inj/Sodium Acetate Inj/KCl Inj/ Sodium Phosphate Inj/ Magnes... 2,104.2437 ml @ 75 mls/hr Q24H IV-CENTRAL Last administered on 11/16/16 23:41; Start 11/16/16 at 20:00; Stop 11/17/16 at 13:12 ; Status DC Acetaminophen 1000 mg 1,000 mg ONCE ONCE IV Last administered on 11/16/16 23: 47; Start 11/16/16 at 21:15; Stop 11/16/16 at 21:16; Status DC Potassium Chloride 100 ml @ 50 mls/hr Q12HR IV Last administered on 11/18/16 09:36; Start 11/17/16 at 21:00; Stop 11/18/16 at 18:40; Status DC Potassium Chloride 100 ml @ 50 mls/hr Q2H IV Last administered on 11/17/16 10 :12; Start 11/17/16 at 07:30; Stop 11/17/16 at 11:29; Status DC Sodium Chloride 80 meq/Potassium Chloride 80 meq/ Sodium Phosphate 40 meq/ Magnesium Chloride 10 meq/ Calcium Chloride 9 meq/ Multivitamins 10 ml/Folic Acid 1 mg/Insulin Human Regular 20 units/ Amino Acids/ Dextrose 2,092.0937 ml @ 75 mls/hr Q24H IV-CENTRAL ; Start 11/17/16 at 20:00; Stop 11/18/16 at 19:29; Status DC Fat Emulsion Intravenous 250 ml @ 31.25 mls/ hr SuWe@20 IV-CENTRAL ; Start at 20:00; Stop 11/19/16 at 20:00; Status DC Sodium Chloride 80 meq/Potassium Chloride 80 meq/ Sodium Phosphate 60 meq/ Magnesium Chloride 10 meq/ Calcium Chloride 9 meq/ Multivitamins 10 ml/Folic Acid 1 mg/Insulin Human Regular 20 units/ Amino Acids/ Dextrose 2,097.0937 ml @ 75 mls/hr Q24H IV-CENTRAL Last administered on 11/18/16 23:19; Start 11/18/16 at 20:00; Stop 11/19/16 at 09:00; Status DC Fat Emulsion Intravenous (Liposyn Iii 20% Inj) 250 ml @ 31.25 mls/ hr SuWe@20 IV-CENTRAL Last administered on 11/19/16 21:25; Start 11/19/16 at 20:00; Stop 11/23/16 at 21:24; Status DC Pantoprazole Sodium (Protonix) 40 mg DAILY PO Last administered on 11/30/16 08 :17; Start 11/19/16 at 09:00 Diltiazem HCl (Cardizem) 30 mg QID PO Last administered on 11/25/16 19:33; Start 11/18/16 at 21:00; Stop 11/26/16 at 06:00; Status DC Potassium Chloride 20 meq 20 meq Q12HR PO Last administered on 11/20/16 20:15 ; Start 11/18/16 at 21:00; Stop 11/21/16 at 06:00; Status DC Sodium Chloride 80 meq/Potassium Chloride 80 meq/ Sodium Phosphate 40 meq/ Magnesium Chloride 10 meq/ Calcium Chloride 9 meq/ Multivitamins 10 ml/Folic Acid 1 mg/Insulin Human Regular 25 units/ Amino Acids/ Dextrose 2,092.1437 ml @ 75 mls/hr Q24H IV-CENTRAL ; Start 11/18/16 at 19:29; Stop 11/18/16 at 19:31; Status DC Sodium Chloride 80 meq/Potassium Chloride 80 meq/ Sodium Phosphate 40 meq/ Magnesium Chloride 10 meq/ Calcium Chloride 9 meq/ Multivitamins 10 ml/Folic Acid 1 mg/Insulin Human Regular 25 units/ Amino Acids/ Dextrose 2,092.1437 ml @ 75 mls/hr Q24H IV-CENTRAL ; Start 11/19/16 at 20:00; Stop 11/19/16 at 20:00; Status DC Piperacillin Sod/ Tazobactam Sod (Zosyn 4.5 Gm Premix) 100 ml @ 200 mls/hr Q6H IV Last administered on 11/21/16 08:06; Start 11/19/16 at 14:00; Stop at 12:58; Status DC Insulin Aspart 1 1 ACHS SLIDING SCALE SQ Last administered on 11/23/16 06:23 ; Start 11/19/16 at 16:00; Stop 11/23/16 at 14:58; Status DC Sodium Chloride/ Potassium Chloride/Sodium Phosphate/ Magnesium Chloride/ Calcium Chloride/ Multivitamins/ Folic Acid/ Insulin Human Regular/Amino Acids/ Dextrose (Sodium Chloride 23.4% Inj/KCl Inj/ Sodium Phosphate Inj/Magnesium Chloride Inj/ Calcium Chloride Inj/Mvi-12 I... 2,092.2137 ml @ 75 mls/hr Q24H IV -CENTRAL Last administered on 11/19/16 20:50; Start 11/19/16 at 20:00; Stop at 20:00; Status DC Albuterol Sulfate (Albuterol Neb) 0.63 mg Q4HR NEB PRN NEB sob; Start 11/20/16 at 07:30 Insulin Detemir 10 units 10 units NOW ONCE SQ Last administered on 11/20/16 08:39; Start 11/20/16 at 07:45; Stop 11/20/16 at 07:53; Status DC Sodium Chloride 80 meq/Potassium Chloride 80 meq/ Sodium Phosphate 40 meq/ Magnesium Chloride 10 meq/ Calcium Chloride 9 meq/ Multivitamins 10 ml/Folic Acid 1 mg/Insulin Human Regular 40 units/ Amino Acids/ Dextrose 2,092.2937 ml @ 75 mls/hr Q24H IV-CENTRAL Last administered on 11/20/16 22:58; Start 11/20/16 at 20:00; Stop 11/21/16 at 06:03; Status DC Diltiazem HCl/ Sodium Chloride (Cardizem Inj/NS Inj) 125 ml @ 0 mls/hr TITRATE PRN IV RVR > 120 for 20 mins; Start 11/20/16 at 16:30; Stop 11/23/16 at 09:30; Status DC Insulin Detemir 12 units 12 units NOW ONCE SQ ; Start 11/21/16 at 06:00; Stop 11/21/16 at 06:04; Status DC Sodium Chloride 80 meq/Potassium Chloride 40 meq/ Sodium Phosphate 40 meq/ Magnesium Chloride 10 meq/ Calcium Chloride 9 meq/ Multivitamins 10 ml/Folic Acid 1 mg/Insulin Human Regular 40 units/ Amino Acids/ Dextrose 2,072.2937 ml @ 75 mls/hr Q24H IV-CENTRAL ; Start 11/21/16 at 06:15; Stop 11/21/16 at 06:38; Status DC Sodium Chloride/ Potassium Chloride/Sodium Phosphate/ Magnesium Chloride/ Calcium Chloride/ Multivitamins/ Folic Acid/ Insulin Human Regular/Amino Acids/ Dextrose (Sodium Chloride 23.4% Inj/KCl Inj/ Sodium Phosphate Inj/Magnesium Chloride Inj/ Calcium Chloride Inj/Mvi-12 I... 2,072.2937 ml @ 75 mls/hr Q24H IV -CENTRAL Last administered on 11/21/16 20:24; Start 11/21/16 at 20:00; Stop at 09:38; Status DC Diphenhydramine HCl (Benadryl) 25 mg HS PRN PO insomnia Last administered on 23:08; Start 11/21/16 at 10:30 Furosemide (Lasix Inj) 10 mg BID@09,18 IV PUSH Last administered on 11/23/16 09:25; Start 11/21/16 at 18:00; Stop 11/23/16 at 09:30; Status DC Insulin Detemir 10 units 10 units NOW ONCE SQ Last administered on 11/22/16 09:53; Start 11/22/16 at 09:00; Stop 11/22/16 at 09:09; Status DC Sodium Chloride/ Potassium Chloride/Sodium Phosphate/ Magnesium Chloride/ Calcium Chloride/ Multivitamins/ Folic Acid/ Insulin Human Regular/Amino Acids/ Dextrose (Sodium Chloride 23.4% Inj/KCl Inj/ Sodium Phosphate Inj/Magnesium Chloride Inj/ Calcium Chloride Inj/Mvi-12 I... 2,062.2937 ml @ 75 mls/hr Q24H IV -CENTRAL ; Start 11/22/16 at 20:00; Stop 11/22/16 at 20:00; Status DC Albuterol/ Ipratropium 1 ampule 1 ampule QID NEB NEB Last administered on 11/29 11:42; Start 11/22/16 at 12:00; Stop 11/29/16 at 13:35; Status DC Sodium Chloride/ Potassium Chloride/Sodium Phosphate/ Magnesium Chloride/ Calcium Chloride/ Multivitamins/ Folic Acid/ Insulin Human Regular/Amino Acids/ Dextrose (Sodium Chloride 23.4% Inj/KCl Inj/ Sodium Phosphate Inj/Magnesium Chloride Inj/ Calcium Chloride Inj/Mvi-12 I... 1,036.2469 ml @ 40 mls/hr Q24H IV -CENTRAL Last administered on 11/22/16 20:12; Start 11/22/16 at 20:00; Stop at 21:24; Status DC Alteplase, Recombinant (Cathflo Activase Inj) 6 mg UNSCH X1 IV FLUSH Last administered on 11/22/16 18:01; Start 11/22/16 at 17:15; Stop 11/22/16 at 21:00 ; Status DC Patient Own Medication PT OWN MED: SPIR... DAILY INH Last administered on 09:22; Start 11/23/16 at 09:00 Apixaban (Eliquis) 5 mg BID PO Last administered on 11/30/16 08:17; Start at 10:00 Furosemide (Lasix) 20 mg BID@09,18 PO Last administered on 11/30/16 08:17; Start 11/23/16 at 18:00 Oxycodone/ Acetaminophen 2 tab 2 tab Q6H PRN PO PAIN SCALE 6 TO 10 Last administered on 11/30/16 02:07; Start 11/23/16 at 10:00 Cefazolin Sodium/ Sodium Chloride (Ancef Inj/NS Inj) 100 ml @ 200 mls/hr Q8H IV Last administered on 11/25/16 11:00; Start 11/23/16 at 11:00; Stop at 13:41; Status DC Insulin Aspart (NovoLOG SUPPLEMENTAL SCALE) 1 ACHS SLIDING SCALE SQ Last administered on 11/25/16 11:00; Start 11/23/16 at 16:00; Stop 11/25/16 at 13:39 ; Status DC Diltiazem HCl (Cardizem Cd) 120 mg DAILY PO Last administered on 11/30/16 08: 17; Start 11/26/16 at 09:00 Insulin Aspart (NovoLOG SUPPLEMENTAL SCALE) 1 ACHS SLIDING SCALE SQ Last administered on 11/26/16 06:19; Start 11/25/16 at 16:00; Stop 11/26/16 at 09:10 ; Status DC Amoxicillin/ Clavulanate Potassium 875 mg 875 mg Q12HR PO Last administered on 2/26/17at 08:17; Start 11/25/16 at 21:00; Stop 12/02/16 at 20:59 Multivitamins 10 ml/Folic Acid 1 mg/Amino Acids/ Electrolytes/ Dextrose 2,010.2 ml @ 75 mls/hr Q24H IV-CENTRAL Last administered on 11/25/16 19:31; Start at 20:00; Stop 11/26/16 at 14:15; Status DC Fat Emulsion Intravenous (Liposyn Iii 20% Inj) 250 ml @ 31.25 mls/ hr SuWe@20 IV-CENTRAL Last administered on 11/26/16 20:47; Start 11/26/16 at 20:00 Insulin Aspart (NovoLOG SUPPLEMENTAL SCALE) 1 ACHS SLIDING SCALE SQ Last administered on 11/30/16 06:33; Start 11/26/16 at 11:00 Dextrose (D50w (Vial) Inj) 25 ml UNSCH PRN IV PUSH HYPOGLYCEMIA-SEE COMMENTS; Start 11/26/16 at 09:15 Glucagon 1 mg 1 mg UNSCH PRN OTHER HYPOGLYCEMIA-SEE COMMENTS; Start 11/26/16 at 09:15 Multivitamins/ Folic Acid/ Insulin Human Regular/Amino Acids/ Electrolytes/ Dextrose (Mvi-12 Inj/ Folvite Inj/ NovoLIN R INJ/ Clinimix E 02/26) 2,010.6 ml @ 75 mls/hr Q24H IV-CENTRAL Last administered on 11/29/16 20:27; Start at 20:00 A/P Problem List: (1) Acute exacerbation of chronic obstructive pulmonary disease (COPD) ICD Code: J44.1 Status: Acute (2) Bladder cancer ICD Code: C67.9 Status: Acute (3) HTN (hypertension) ICD Code: I10 Status: Acute (4) Atrial flutter ICD Code: I48.92 Status: Acute Assessment and Plan A/P Bladder cancer - status post radical cystoscopy prostatectomy. Status post ileal conduit. Further management per urology, pain control per urology, weaned off TPN. previously discussed with Dr. Huff 11/25. tolerating full liquids and on TPN. Acute exacerbation of COPD-resolved, continue oxygen support, status post Levaquin. Continue bronchodilators. ileus vs Partial small bowel obstruction. Improved. tolerating full liquids. may consider advancing if okay with surgery. Enterocutaneous fistula. Tolerating diet. Continue wound care. Maximize nutrition with by mouth and TPN- Will need repair in 8-10 weeks per GS Atrial flutter with RVR - [id number] score 2 (Age, Hx of HTN). Continue oral Cardizem and apixaban. Patient evaluated by cardiology. Stable Hypertension -Patient apparently takes Micardis at home. He isn't orthostatic secondary to anemia and BP meds. Blood pressure stable. Anemia secondary to acute blood loss. Status post transfusion with appropriate response monitor CBC. Leukocytosis. Patient no fever but has some erythema around the abdominal wound. Ct Augmentin to December 02 Fluid overload - Continue Lasix FEN. Ct TPN and diet Hyperkalemia-resolved Hyponatremia-could be from hypervolemia on Lasix. Asymptomatic Hyperglycemia secondary to TPN hx borderline DM. Follow-up A1c is 6.4. Added 40 units units regular insulin per TPN bag and ct high dose sliding scale, continue insulin dose per glycemic trends. Hypoglycemic protocol. Deconditioning. Continue physical therapy, out of bed , consult case management for discharge to [place] which declined pt DVT prophylaxis Patricia Coleman MD Nov 30, 2016 09:16
[2016-11-30] MEDS: ATORVASTATIN 40 MG TAB PO SCH (21:41)
[2016-11-30] MEDS: FAT EMULSION 20% INJ 250 ML (Twice weekly over 8 hours) IV-CENTRAL SCH (21:51)
[2016-11-30] MEDS: MULTIVITAMIN INJ 10 ML, FOLIC ACID INJ 1 MG, INSULIN HUMAN REGULAR INJ 40 UNITS in AMIN... IV-CENTRAL SCH (21:51)
[2016-11-30] MEDS: diphenhydrAMINE HCL 25 MG CAP PO PRN (23:29)
[2016-12-01] VITALS (7 sets, daily range): BP systolic 124–136; BP diastolic 58–75; PULSE 71–82; RESP 17–19; TEMP 97.1–98.2; O2SAT 95–99
[2016-12-01] MEDS: INSULIN ASPART SUPPLEMENTAL SCALE SQ SCH ×4 (05:51→21:00)
[2016-12-01 06:10] LABS: HEMATOCRIT 25.4 % (39.0-51.0); MEAN CELL VOLUME 90.8 FL (80.0-100.0); MEAN CORPUSCULAR HEMOGLOBIN 30.8 PG (27.0-34.0); MEAN CORPUSCULAR HGB CONC 33.9 % (32.0-36.0); PLATELET COUNT 310 TH/MM3 (150-450); RED CELL DISTRIBUTION WIDTH 14.9 % (11.6-17.2); REVIEW FLAG FINAL; WHITE BLOOD COUNT 9.8 TH/MM3 (4.0-11.0)
[2016-12-01 06:13] LABS: BICARBONATE 27.9 MEQ/L (21.0-32.0); MAGNESIUM 2.2 MG/DL (1.5-2.5); POTASSIUM 4.6 MEQ/L (3.5-5.1)
[2016-12-01] MEDS: PANTOPRAZOLE SOD 40 MG DELAYED RELEASE TAB PO SCH (08:36)
[2016-12-01] MEDS: CETIRIZINE HCL 10 MG TAB PO SCH (08:36)
[2016-12-01] MEDS: AMOXICILLIN/CLAVULANATE K 875 MG TAB PO SCH ×2 (08:36→20:38)
[2016-12-01] MEDS: FUROSEMIDE 20 MG TAB PO SCH ×2 (08:37→16:57)
[2016-12-01] MEDS: APIXABAN 5 MG TABLET PO SCH ×2 (08:37→20:38)
[2016-12-01] MEDS: DILTIAZEM-CD 120 MG CAP ER PO SCH (08:37)
[2016-12-01] MEDS: SPIRIVA RESPIMAT INH SCH (08:38)
[2016-12-01] MEDS: BUDESONIDE-FORMOTEROL 160/4.5 MCG INHALER INH SCH ×2 (08:38→20:39)
[2016-12-01] MEDS: SODIUM CHLORIDE 0.9% FLUSH 5 ML FLUSH IVF SCH (08:39)
--- NOTE | 2016-12-01 10:54 | HHI.PR ---
Subjective Remarks f/u for wound care Patient has no complaints. He stated he tolerated his clear liquid diet. Denied any pain. His is at the bedside. he stated wound care change his bandages this morning. Objective Vitals Vital Signs Date Time Temp Pulse Resp B/P Pulse Ox O2 Delivery O2 Flow Rate FiO2 12/01/16 08:13 97 Nasal Cannula 2.00 12/01/16 08:00 98.2 75 19 133/62 98 12/01/16 07:45 97 2.00 12/01/16 04:00 97.5 75 17 127/58 97 12/01/16 00:00 98.2 71 17 124/60 95 11/30/16 21:55 Nasal Cannula 2.00 11/30/16 20:30 95 Nasal Cannula 2.00 11/30/16 20:00 96.7 76 17 122/58 95 11/30/16 16:00 97.7 78 19 113/49 95 11/30/16 12:00 98.4 75 19 124/50 98 I/O 11/30/16 11/30/16 11/30/16 12/01/16 12/01/16 12/01/16 07:00 15:00 23:00 07:00 15:00 23:00 Intake Total 647 ml 1763 ml 667 ml 1094 ml Output Total 1700 ml 2050 ml 500 ml Balance 647 ml 63 ml -1383 ml 594 ml Intake Oral 1200 ml 240 ml 240 ml TPN/PPN 647 ml 563 ml 300 ml 600 ml Lipid 127 ml 254 ml Output Urine Total 1700 ml 800 ml Stool Total 200 ml Drainage Total 1050 ml 500 ml # Bowel Movements 0 Result Diagram: 12/01/16 0545 12/01/16 0545 Objective Remarks Gen NAD CV RRR. no r.m.g Abd ostomy bag in place. no TTP of abdomen Procedures 11/05/2016 Symptomatic large supraumbilical hernia. Bladder cancer requiring radical cystectomy. 11/08/2016 1. Radical cystoprostatectomy with ileal conduit. 2. Bilateral pelvic lymph node dissection. Right IJ central line Medications and IVs Current Medications Cefazolin Sodium/ Dextrose 50 ml @ 100 mls/hr MALLET CUTTER IV Last administered on 11/05/16t 06:54; Start 11/05/16 at 06:30; Stop 11/06/16 at 06:29; Status DC Lactated Ringer's 1,000 ml @ 30 mls/hr Q24H IV Last administered on 11/05/16 06:15; Start 11/05/16 at 07:30; Stop 11/11/16 at 12:30; Status DC Sodium Chloride (NS 500 ml Inj) 500 ml @ 30 mls/hr [id number] IV ; Start 11/05/16 at 07:30; Stop 11/06/16 at 07:29; Status DC Insulin Human Regular (NovoLIN R INJ) See Protocol Table ... UNSCH X1 PRN SQ SEE PROTOCOL; Start 11/05/16 at 05:45; Stop 11/06/16 at 05:44; Status DC Metoprolol Tartrate 25 mg 25 mg UNSCH X1 PRN PO SEE LABEL COMMENTS; Start at 05:45; Stop 11/06/16 at 05:44; Status DC Sodium Bicarbonate (Sodium Bicarbonate 8.4% Inj) 50 ml @ As Directed STK-MED ONCE .ROUTE ; Start 11/05/16 at 06:48; Stop 11/05/16 at 06:49; Status DC Lidocaine/ Epinephrine (Xylocaine-Epi 1%-1:100,000 Inj) 30 ml STK-MED ONCE .ROUTE ; Start 11/05/16 at 06:48; Stop 11/05/16 at 06:49; Status DC Gelatin (Gelfoam 100 Top) 1 foam STK-MED ONCE .ROUTE ; Start 11/05/16 at 06:48; Stop 11/05/16 at 06:49; Status DC Bacitracin (Baciguent Oint) 15 applic STK-MED ONCE .ROUTE ; Start 11/05/16 at 06: 48; Stop 11/05/16 at 06:49; Status DC Bupivacaine HCl/ Epinephrine Bitart (Sensorcaine-Epinephrine Pf 0.5% Inj) 30 ml STK-MED ONCE .ROUTE Last administered on 11/05/16 12:00; Start 11/05/16 at 06:56 ; Stop 11/05/16 at 06:57; Status DC Albuterol/ Ipratropium (Duoneb Neb) 1 ampule STK-MED ONCE .ROUTE Last administered on 11/05/16 07:11; Start 11/05/16 at 07:11; Stop 11/05/16 at 07:12; Status DC Midazolam HCl (Versed Inj) 2 mg STK-MED ONCE .ROUTE Last administered on 07:24; Start 11/05/16 at 07:23; Stop 11/05/16 at 07:24; Status DC Fentanyl Citrate (fentaNYL INJ) 1,000 mcg STK-MED ONCE .ROUTE ; Start 11/05/16 at 07:27; Stop 11/05/16 at 07:28; Status DC Cefazolin Sodium (Ancef Inj) 2,000 mg STK-MED ONCE IV Last administered on 11:00; Start 11/05/16 at 11:00; Stop 11/05/16 at 11:08; Status DC Pantoprazole Sodium (Protonix Inj) 40 mg Q24H IV PUSH Last administered on 11/18 15:40; Start 11/05/16 at 14:00; Stop 11/18/16 at 18:40; Status DC Ondansetron HCl 4 mg 4 mg Q6HR PRN IV PUSH NAUSEA Last administered on 14:20; Start 11/05/16 at 13:00 Cefazolin Sodium 1000 mg/Sodium Chloride 100 ml @ 200 mls/hr Q8H IV Last administered on 11/07/16 08:41; Start 11/05/16 at 18:00; Stop 11/07/16 at 13:29; Status DC Gentamicin Sulfate/Sodium Chloride (Gentamicin Inj/ NS Inj) 103 ml @ 100 mls/ hr Q24H IV Last administered on 11/06/16 14:41; Start 11/05/16 at 15:00; Stop at 13:29; Status DC Acetaminophen (Ofirmev Inj) 1,000 mg Q6H IV Last administered on 11/16/16 01: 55; Start 11/05/16 at 14:00; Stop 11/16/16 at 08:26; Status DC Aspirin (Ecotrin Ec) 81 mg DAILY PO ; Start 11/06/16 at 09:00; Stop 11/06/16 at 09 :00; Status DC Atorvastatin Calcium (Lipitor) 40 mg HS PO Last administered on 11/30/16 21:41 ; Start 11/05/16 at 21:00 Cetirizine HCl (ZyrTEC) 10 mg DAILY PO Last administered on 12/01/16 08:36; Start 11/06/16 at 09:00 Losartan Potassium (Cozaar) 100 mg DAILY PO Last administered on 11/19/16 09: 04; Start 11/05/16 at 17:00; Stop 11/25/16 at 13:35; Status DC Budesonide/ Formoterol Fumarate (Symbicort 160-4.5 Inh) 1 puff BID INH Last administered on 12/01/16 08:38; Start 11/05/16 at 14:00 Patient Own Medication PT OWN MED: SPIR... DAILY INH Last administered on 08:47; Start 11/05/16 at 14:00; Stop 11/22/16 at 21:26; Status DC Fentanyl Citrate (fentaNYL INJ) 250 mcg STK-MED ONCE .ROUTE ; Start 11/05/16 at 13:05; Stop 11/05/16 at 13:06; Status DC Morphine Sulfate (*morphine INJ PERIprocedure ONLY) 8 mg STK-MED ONCE .ROUTE Last administered on 11/05/16 13:15; Start 11/05/16 at 13:15; Stop 11/05/16 at 13: 16; Status DC Morphine Sulfate (*morphine INJ PERIprocedure ONLY) 8 mg STK-MED ONCE .ROUTE Last administered on 11/05/16 13:36; Start 11/05/16 at 13:36; Stop 11/05/16 at 13: 37; Status DC Morphine Sulfate (Morphine 1 Mg/ ml MANAGEMENT SPECIALIST) 30 mg UNSCH IV Last administered on 13:00; Start 11/05/16 at 13:45; Stop 11/07/16 at 13:29; Status DC MANAGEMENT SPECIALIST Dosage Infused (Pha) 1 Q8HR .XX Last administered on 11/07/16 05:41; Start 11/05/16 at 14:00; Stop 11/07/16 at 13:29; Status DC Naloxone HCl (Narcan Inj) 0.4 mg UNSCH PRN IV RESPIRATORY RATE LESS THAN 10; Start 11/05/16 at 13:45; Stop 11/07/16 at 13:29; Status DC Miscellaneous Information ALL NURSING DEPARTME... UNSCH PRN XX SEE LABEL COMMENTS; Start 11/05/16 at 12:59; Stop 11/06/16 at 12:58; Status DC Sodium Chloride (NS 1000 ml Inj) 1,000 ml @ 83 mls/hr Q12H3M IV Last administered on 11/14/16 15:05; Start 11/05/16 at 14:00; Stop 11/15/16 at 05:47 ; Status DC Morphine Sulfate (*morphine INJ PERIprocedure ONLY) 8 mg STK-MED ONCE .ROUTE Last administered on 11/05/16 13:53; Start 11/05/16 at 13:53; Stop 11/05/16 at 13: 54; Status DC Erythromycin (Erythromycin 0.5% Opth Oint) 1 gm STK-MED ONCE .ROUTE ; Start 11/05 at 17:46; Stop 11/05/16 at 17:47; Status DC Balanced Salt Solution (Bss Opth Soln) 1 application times 1... ONCE ONCE LEFT EYE ; Start 11/05/16 at 18:00; Stop 11/05/16 at 18:01; Status DC Tetracaine HCl (Pontocaine 0.5% Opht Soln) 1 application times 1... ONCE ONCE LEFT EYE ; Start 11/05/16 at 18:00; Stop 11/05/16 at 18:01; Status DC Erythromycin (Ilotycin 0.5% Opth Oint) Instill 1/ 4 inch times 1... ONCE ONCE LEFT EYE ; Start 11/05/16 at 18:00; Stop 11/05/16 at 18:01; Status DC Non-Formulary Medication TETRACAINE 0.5% OPTH SOLN ... ONCE ONCE LEFT EYE Last administered on 11/05/16 21:07; Start 11/05/16 at 18:00; Stop 11/05/16 at 18: 01; Status DC Propofol 200 mg 200 mg STK-MED ONCE IV ; Start 11/05/16 at 12:00; Stop 11/06/16 at 11:52; Status DC Lactated Ringer's 5,000 ml @ As Directed STK-MED ONCE IV ; Start 11/05/16 at 12: 00; Stop 11/06/16 at 11:52; Status DC Sodium Chloride (NS 500 ml Inj) 500 ml @ As Directed STK-MED ONCE IV ; Start at 12:00; Stop 11/06/16 at 11:52; Status DC Ephedrine Sulfate (ePHEDrine/NS 25 MG/5 ML SYR) 25 mg STK-MED ONCE IV ; Start at 12:00; Stop 11/06/16 at 11:52; Status DC Phenylephrine HCl (Neosynephrine/ NS 1000 Mcg/10ml Syr) 1,000 mcg STK-MED ONCE IV ; Start 11/05/16 at 12:00; Stop 11/06/16 at 11:52; Status DC Morphine Sulfate (Morphine Inj) 4 mg Q3H PRN IV PUSH BREAKTHROUGH PAIN Last administered on 11/23/16 04:58; Start 11/07/16 at 13:30; Stop 11/23/16 at 09:51 ; Status DC Calcium Carbonate (Tums Chew) 1,000 mg Q6H PRN CHEW HEARTBURN Last administered on 11/21/16 02:23; Start 11/09/16 at 03:00 Promethazine HCl (Phenergan Inj) 10 mg Q6H PRN IM NAUSEA Last administered on 03:48; Start 11/09/16 at 03:45; Stop 11/25/16 at 13:35; Status DC Metoclopramide HCl (Reglan Inj) 5 mg Q8HR IV PUSH Last administered on 14:39; Start 11/10/16 at 09:00; Stop 11/13/16 at 20:00; Status DC Enalaprilat (Vasotec Inj) 1.25 mg Q6H PRN IV PUSH SBP>160, DBP>90 Last administered on 11/10/16 09:29; Start 11/10/16 at 09:00 Bisacodyl (Dulcolax Supp) 10 mg ONCE ONCE RECTAL Last administered on 09:30; Start 11/10/16 at 08:45; Stop 11/10/16 at 08:46; Status DC Albuterol/ Ipratropium (Duoneb Neb) 1 ampule Q4HR NEB PRN NEB WHEEZING Last administered on 11/11/16 04:09; Start 11/10/16 at 23:00; Stop 11/11/16 at 16:00; Status DC Furosemide (Lasix Inj) 40 mg ONCE ONCE IV PUSH Last administered on 11/11/16 13:13; Start 11/11/16 at 13:00; Stop 11/11/16 at 13:01; Status DC Furosemide (Lasix Inj) 20 mg ONCE ONCE IV PUSH ; Start 11/11/16 at 19:00; Stop 11/11/16 at 19:00; Status DC Albuterol/ Ipratropium (Duoneb Neb) 1 ampule Q4HR WHILE AWAKE NEB NEB Last administered on 11/12/16 11:04; Start 11/11/16 at 16:00; Stop 11/12/16 at 11:37; Status DC Methylprednisolone Sodium Succinate 40 mg 40 mg Q6HR IV PUSH ; Start 11/11/16 at 18:00; Stop 11/11/16 at 18:00; Status DC Levofloxacin/ Dextrose (Levaquin 750 Mg Premix Inj) 150 ml @ 100 mls/hr Q24H IV Last administered on 11/18/16 17:35; Start 11/11/16 at 18:00; Stop 11/18/16 at 18:40; Status DC Furosemide (Lasix Inj) 40 mg ONCE ONCE IV PUSH Last administered on 11/11/16 17:26; Start 11/11/16 at 17:30; Stop 11/11/16 at 17:31; Status DC Diltiazem HCl 20 mg 20 mg ONCE ONCE IVP Last administered on 11/11/16 20:23; Start 11/11/16 at 19:00; Stop 11/11/16 at 19:05; Status DC Diltiazem HCl/ Sodium Chloride (Cardizem Inj/NS Inj) 125 ml @ 0 mls/hr TITRATE IV Last administered on 11/18/16 17:37; Start 11/11/16 at 19:00; Stop 11/20/16 at 16:24; Status DC Diltiazem HCl (Cardizem Inj) 10 mg ONCE ONCE IV Last administered on 11/12/16 02:00; Start 11/12/16 at 02:00; Stop 11/12/16 at 02:01; Status DC Digoxin (Lanoxin Inj) 0.5 mg ONCE ONCE IV PUSH Last administered on 11/12/16 03:42; Start 11/12/16 at 03:30; Stop 11/12/16 at 03:32; Status DC Atropine Sulfate (Atropine Inj) 1 mg STK-MED ONCE .ROUTE ; Start 11/12/16 at 03: 48; Stop 11/12/16 at 03:49; Status DC Lidocaine HCl (Xylocaine 2% Inj) 100 mg STK-MED ONCE .ROUTE ; Start 11/12/16 at 03:48; Stop 11/12/16 at 03:49; Status DC Epinephrine HCl (EPINEPHrine (1:10,000) INJ) 1 mg STK-MED ONCE .ROUTE ; Start at 03:48; Stop 11/12/16 at 03:49; Status DC Lidocaine HCl (Xylocaine 2% Inj) 100 mg STK-MED ONCE .ROUTE ; Start 11/12/16 at 03:50; Stop 11/12/16 at 03:51; Status DC Epinephrine HCl (EPINEPHrine (1:10,000) INJ) 1 mg STK-MED ONCE .ROUTE ; Start at 03:50; Stop 11/12/16 at 03:51; Status DC Iohexol (Omnipaque 350 Inj) 70 ml STK-MED ONCE IV Last administered on 04:14; Start 11/12/16 at 04:14; Stop 11/12/16 at 04:15; Status DC Diltiazem HCl 15 mg 15 mg ONCE ONCE IV ; Start 11/12/16 at 05:15; Stop 11/12/16 at 05:16; Status DC Amiodarone HCl 150 mg/Dextrose 100 ml @ 600 mls/hr ONCE ONCE IV Last administered on 11/12/16 05:41; Start 11/12/16 at 05:15; Stop 11/12/16 at 05:24; Status DC Amiodarone HCl/ Dextrose (Cordarone Inj/ D5W ([place]) Inj) 250 ml @ 0 mls/hr CONTINUOUS IV Last administered on 11/15/16 01:24; Start 11/12/16 at 05:15; Stop 11/15/16 at 15:56; Status DC Heparin Sodium (Porcine) (Heparin Inj) 5,000 units Q12HR SQ ; Start 11/12/16 at 10:00; Stop 11/12/16 at 15:01; Status DC Furosemide (Lasix Inj) 40 mg BID@09,18 IV PUSH Last administered on 11/20/16 08:38; Start 11/12/16 at 18:00; Stop 11/21/16 at 17:25; Status DC Levalbuterol HCl 1.25 mg 1.25 mg Q6HR NEB NEB Last administered on 11/22/16 09:57; Start 11/12/16 at 11:38; Stop 11/22/16 at 10:55; Status DC Heparin Sodium/ Dextrose (Heparin-D5W Inj) 250 ml @ 0 mls/hr TITRATE IV Last administered on 11/22/16 23:09; Start 11/12/16 at 15:15; Stop 11/23/16 at 09:29 ; Status DC Heparin Sodium (Porcine) (Heparin Inj) 5,000 units UNSCH PRN IV aPTT less than 25; Start 11/12/16 at 15:15; Stop 11/23/16 at 09:30; Status DC Heparin Sodium (Porcine) (Heparin Inj) 2,500 units UNSCH PRN IV aPTT 25 to 39 Last administered on 11/17/16 08:27; Start 11/12/16 at 15:15; Stop 11/23/16 at 09:30; Status DC Heparin Sodium (Porcine) (Heparin Inj) 4,000 units ONCE ONCE IV Last administered on 11/12/16 16:40; Start 11/12/16 at 17:00; Stop 11/12/16 at 17:01; Status DC Diatrizoate Meglum/ Diatrizoate Sod ( Gastroview Liq) 18 ml ONCE ONCE PO Last administered on 11/13/16 15:03; Start 11/13/16 at 14:30; Stop 11/13/16 at 14: 31; Status DC Insulin Aspart 1 1 ACHS SLIDING SCALE SQ Last administered on 11/19/16 12:29 ; Start 11/13/16 at 21:00; Stop 11/19/16 at 14:14; Status DC Potassium Chloride (KCl 20 Meq Premix Inj) 100 ml @ 50 mls/hr ONCE ONCE IV Last administered on 11/13/16 21:53; Start 11/13/16 at 21:00; Stop 11/13/16 at 22: 59; Status DC Dextrose (D50w (Vial) Inj) 25 ml UNSCH PRN IV PUSH HYPOGLYCEMIA - SEE COMMENTS ; Start 11/13/16 at 20:30; Stop 11/25/16 at 13:39; Status DC Glucagon (Glucagon Inj) 1 mg UNSCH PRN OTHER HYPOGLYCEMIA-SEE COMMENTS; Start 11/13/16 at 20:30; Stop 11/25/16 at 13:39; Status DC IV Flush (NS Flush) DAILY IVF Last administered on 12/01/16 08:39; Start 08/21 at 09:00 IV Flush UNSCH PRN IVF SEE PROTOCOL; Start 11/14/16 at 16:45 Potassium Chloride (KCl 10 Meq Premix Inj) 100 ml @ 100 mls/hr Q1H IV Last administered on 11/14/16 22:00; Start 11/14/16 at 20:00; Stop 11/14/16 at 22:59 ; Status DC Mupirocin 1 applic 1 applic BID EACH NARE Last administered on 11/21/16 08:06 ; Start 11/14/16 at 21:00; Stop 11/21/16 at 20:59; Status DC Multivitamins 10 ml/Folic Acid 1 mg/Amino Acids/ Electrolytes/ Dextrose 2,010.2 ml @ 75 mls/hr Q24H IV-CENTRAL Last administered on 11/15/16 22:33; Start 07/21 at 20:00; Stop 11/16/16 at 11:30; Status DC Fat Emulsion Intravenous 250 ml @ 31.25 mls/ hr SuWe@20 IV-CENTRAL Last administered on 11/16/16 23:49; Start 11/16/16 at 20:00; Stop 11/17/16 at 13:12 ; Status DC Potassium Chloride (KCl 20 Meq Premix Inj) 100 ml @ 50 mls/hr Q2H IV Last administered on 11/15/16 12:00; Start 11/15/16 at 10:00; Stop 11/15/16 at 13:59 ; Status DC Benzocaine/ Menthol 1 lozenge 1 lozenge Q2H PRN BUCCAL DRY MOUTH Last administered on 11/23/16 04:58; Start 11/15/16 at 09:45 Potassium Chloride (KCl 10 Meq Premix Inj) 100 ml @ 100 mls/hr Q1H IV Last administered on 11/16/16 12:37; Start 11/16/16 at 08:45; Stop 11/16/16 at 11:44 ; Status DC Insulin Human NPH (NovoLIN N INJ) 5 units ONCE ONCE SQ Last administered on 09:37; Start 11/16/16 at 08:45; Stop 11/16/16 at 08:46; Status DC Acetaminophen 325 mg 325 mg Q4H PRN RECTAL HEADACHE, TEMPERATURE > 101; Start 11/16/16 at 08:30 Sodium Chloride/ Sodium Acetate/ Potassium Chloride/Sodium Phosphate/ Magnesium Chloride/Calcium Chloride/ Multivitamins/ Folic Acid/ Insulin Human Regular/ Amino Acids/Dextrose (Sodium Chloride 23.4% Inj/Sodium Acetate Inj/KCl Inj/ Sodium Phosphate Inj/ Magnes... 2,104.2437 ml @ 75 mls/hr Q24H IV-CENTRAL Last administered on 11/16/16 23:41; Start 11/16/16 at 20:00; Stop 11/17/16 at 13:12 ; Status DC Acetaminophen 1000 mg 1,000 mg ONCE ONCE IV Last administered on 11/16/16 23: 47; Start 11/16/16 at 21:15; Stop 11/16/16 at 21:16; Status DC Potassium Chloride 100 ml @ 50 mls/hr Q12HR IV Last administered on 11/18/16 09:36; Start 11/17/16 at 21:00; Stop 11/18/16 at 18:40; Status DC Potassium Chloride 100 ml @ 50 mls/hr Q2H IV Last administered on 11/17/16 10 :12; Start 11/17/16 at 07:30; Stop 11/17/16 at 11:29; Status DC Sodium Chloride 80 meq/Potassium Chloride 80 meq/ Sodium Phosphate 40 meq/ Magnesium Chloride 10 meq/ Calcium Chloride 9 meq/ Multivitamins 10 ml/Folic Acid 1 mg/Insulin Human Regular 20 units/ Amino Acids/ Dextrose 2,092.0937 ml @ 75 mls/hr Q24H IV-CENTRAL ; Start 11/17/16 at 20:00; Stop 11/18/16 at 19:29; Status DC Fat Emulsion Intravenous 250 ml @ 31.25 mls/ hr SuWe@20 IV-CENTRAL ; Start at 20:00; Stop 11/19/16 at 20:00; Status DC Sodium Chloride 80 meq/Potassium Chloride 80 meq/ Sodium Phosphate 60 meq/ Magnesium Chloride 10 meq/ Calcium Chloride 9 meq/ Multivitamins 10 ml/Folic Acid 1 mg/Insulin Human Regular 20 units/ Amino Acids/ Dextrose 2,097.0937 ml @ 75 mls/hr Q24H IV-CENTRAL Last administered on 11/18/16 23:19; Start 11/18/16 at 20:00; Stop 11/19/16 at 09:00; Status DC Fat Emulsion Intravenous (Liposyn Iii 20% Inj) 250 ml @ 31.25 mls/ hr SuWe@20 IV-CENTRAL Last administered on 11/19/16 21:25; Start 11/19/16 at 20:00; Stop 11/23/16 at 21:24; Status DC Pantoprazole Sodium (Protonix) 40 mg DAILY PO Last administered on 12/01/16 08 :36; Start 11/19/16 at 09:00 Diltiazem HCl (Cardizem) 30 mg QID PO Last administered on 11/25/16 19:33; Start 11/18/16 at 21:00; Stop 11/26/16 at 06:00; Status DC Potassium Chloride 20 meq 20 meq Q12HR PO Last administered on 11/20/16 20:15 ; Start 11/18/16 at 21:00; Stop 11/21/16 at 06:00; Status DC Sodium Chloride 80 meq/Potassium Chloride 80 meq/ Sodium Phosphate 40 meq/ Magnesium Chloride 10 meq/ Calcium Chloride 9 meq/ Multivitamins 10 ml/Folic Acid 1 mg/Insulin Human Regular 25 units/ Amino Acids/ Dextrose 2,092.1437 ml @ 75 mls/hr Q24H IV-CENTRAL ; Start 11/18/16 at 19:29; Stop 11/18/16 at 19:31; Status DC Sodium Chloride 80 meq/Potassium Chloride 80 meq/ Sodium Phosphate 40 meq/ Magnesium Chloride 10 meq/ Calcium Chloride 9 meq/ Multivitamins 10 ml/Folic Acid 1 mg/Insulin Human Regular 25 units/ Amino Acids/ Dextrose 2,092.1437 ml @ 75 mls/hr Q24H IV-CENTRAL ; Start 11/19/16 at 20:00; Stop 11/19/16 at 20:00; Status DC Piperacillin Sod/ Tazobactam Sod (Zosyn 4.5 Gm Premix) 100 ml @ 200 mls/hr Q6H IV Last administered on 11/21/16 08:06; Start 11/19/16 at 14:00; Stop at 12:58; Status DC Insulin Aspart 1 1 ACHS SLIDING SCALE SQ Last administered on 11/23/16 06:23 ; Start 11/19/16 at 16:00; Stop 11/23/16 at 14:58; Status DC Sodium Chloride/ Potassium Chloride/Sodium Phosphate/ Magnesium Chloride/ Calcium Chloride/ Multivitamins/ Folic Acid/ Insulin Human Regular/Amino Acids/ Dextrose (Sodium Chloride 23.4% Inj/KCl Inj/ Sodium Phosphate Inj/Magnesium Chloride Inj/ Calcium Chloride Inj/Mvi-12 I... 2,092.2137 ml @ 75 mls/hr Q24H IV -CENTRAL Last administered on 11/19/16 20:50; Start 11/19/16 at 20:00; Stop at 20:00; Status DC Albuterol Sulfate (Albuterol Neb) 0.63 mg Q4HR NEB PRN NEB sob; Start 11/20/16 at 07:30 Insulin Detemir 10 units 10 units NOW ONCE SQ Last administered on 11/20/16 08:39; Start 11/20/16 at 07:45; Stop 11/20/16 at 07:53; Status DC Sodium Chloride 80 meq/Potassium Chloride 80 meq/ Sodium Phosphate 40 meq/ Magnesium Chloride 10 meq/ Calcium Chloride 9 meq/ Multivitamins 10 ml/Folic Acid 1 mg/Insulin Human Regular 40 units/ Amino Acids/ Dextrose 2,092.2937 ml @ 75 mls/hr Q24H IV-CENTRAL Last administered on 11/20/16 22:58; Start 11/20/16 at 20:00; Stop 11/21/16 at 06:03; Status DC Diltiazem HCl/ Sodium Chloride (Cardizem Inj/NS Inj) 125 ml @ 0 mls/hr TITRATE PRN IV RVR > 120 for 20 mins; Start 11/20/16 at 16:30; Stop 11/23/16 at 09:30; Status DC Insulin Detemir 12 units 12 units NOW ONCE SQ ; Start 11/21/16 at 06:00; Stop 11/21/16 at 06:04; Status DC Sodium Chloride 80 meq/Potassium Chloride 40 meq/ Sodium Phosphate 40 meq/ Magnesium Chloride 10 meq/ Calcium Chloride 9 meq/ Multivitamins 10 ml/Folic Acid 1 mg/Insulin Human Regular 40 units/ Amino Acids/ Dextrose 2,072.2937 ml @ 75 mls/hr Q24H IV-CENTRAL ; Start 11/21/16 at 06:15; Stop 11/21/16 at 06:38; Status DC Sodium Chloride/ Potassium Chloride/Sodium Phosphate/ Magnesium Chloride/ Calcium Chloride/ Multivitamins/ Folic Acid/ Insulin Human Regular/Amino Acids/ Dextrose (Sodium Chloride 23.4% Inj/KCl Inj/ Sodium Phosphate Inj/Magnesium Chloride Inj/ Calcium Chloride Inj/Mvi-12 I... 2,072.2937 ml @ 75 mls/hr Q24H IV -CENTRAL Last administered on 11/21/16 20:24; Start 11/21/16 at 20:00; Stop at 09:38; Status DC Diphenhydramine HCl (Benadryl) 25 mg HS PRN PO insomnia Last administered on 23:29; Start 11/21/16 at 10:30 Furosemide (Lasix Inj) 10 mg BID@09,18 IV PUSH Last administered on 11/23/16 09:25; Start 11/21/16 at 18:00; Stop 11/23/16 at 09:30; Status DC Insulin Detemir 10 units 10 units NOW ONCE SQ Last administered on 11/22/16 09:53; Start 11/22/16 at 09:00; Stop 11/22/16 at 09:09; Status DC Sodium Chloride/ Potassium Chloride/Sodium Phosphate/ Magnesium Chloride/ Calcium Chloride/ Multivitamins/ Folic Acid/ Insulin Human Regular/Amino Acids/ Dextrose (Sodium Chloride 23.4% Inj/KCl Inj/ Sodium Phosphate Inj/Magnesium Chloride Inj/ Calcium Chloride Inj/Mvi-12 I... 2,062.2937 ml @ 75 mls/hr Q24H IV -CENTRAL ; Start 11/22/16 at 20:00; Stop 11/22/16 at 20:00; Status DC Albuterol/ Ipratropium 1 ampule 1 ampule QID NEB NEB Last administered on 11/29 11:42; Start 11/22/16 at 12:00; Stop 11/29/16 at 13:35; Status DC Sodium Chloride/ Potassium Chloride/Sodium Phosphate/ Magnesium Chloride/ Calcium Chloride/ Multivitamins/ Folic Acid/ Insulin Human Regular/Amino Acids/ Dextrose (Sodium Chloride 23.4% Inj/KCl Inj/ Sodium Phosphate Inj/Magnesium Chloride Inj/ Calcium Chloride Inj/Mvi-12 I... 1,036.2469 ml @ 40 mls/hr Q24H IV -CENTRAL Last administered on 11/22/16 20:12; Start 11/22/16 at 20:00; Stop at 21:24; Status DC Alteplase, Recombinant (Cathflo Activase Inj) 6 mg UNSCH X1 IV FLUSH Last administered on 11/22/16 18:01; Start 11/22/16 at 17:15; Stop 11/22/16 at 21:00 ; Status DC Patient Own Medication PT OWN MED: SPIR... DAILY INH Last administered on 08:38; Start 11/23/16 at 09:00 Apixaban (Eliquis) 5 mg BID PO Last administered on 12/01/16 08:37; Start at 10:00 Furosemide (Lasix) 20 mg BID@09,18 PO Last administered on 12/01/16 08:37; Start 11/23/16 at 18:00 Oxycodone/ Acetaminophen 2 tab 2 tab Q6H PRN PO PAIN SCALE 6 TO 10 Last administered on 11/30/16 23:30; Start 11/23/16 at 10:00 Cefazolin Sodium/ Sodium Chloride (Ancef Inj/NS Inj) 100 ml @ 200 mls/hr Q8H IV Last administered on 11/25/16 11:00; Start 11/23/16 at 11:00; Stop at 13:41; Status DC Insulin Aspart (NovoLOG SUPPLEMENTAL SCALE) 1 ACHS SLIDING SCALE SQ Last administered on 11/25/16 11:00; Start 11/23/16 at 16:00; Stop 11/25/16 at 13:39 ; Status DC Diltiazem HCl (Cardizem Cd) 120 mg DAILY PO Last administered on 12/01/16 08: 37; Start 11/26/16 at 09:00 Insulin Aspart (NovoLOG SUPPLEMENTAL SCALE) 1 ACHS SLIDING SCALE SQ Last administered on 11/26/16 06:19; Start 11/25/16 at 16:00; Stop 11/26/16 at 09:10 ; Status DC Amoxicillin/ Clavulanate Potassium 875 mg 875 mg Q12HR PO Last administered on 12/01/16 08:36; Start 11/25/16 at 21:00; Stop 12/02/16 at 20:59 Multivitamins 10 ml/Folic Acid 1 mg/Amino Acids/ Electrolytes/ Dextrose 2,010.2 ml @ 75 mls/hr Q24H IV-CENTRAL Last administered on 11/25/16 19:31; Start at 20:00; Stop 11/26/16 at 14:15; Status DC Fat Emulsion Intravenous (Liposyn Iii 20% Inj) 250 ml @ 31.25 mls/ hr SuWe@20 IV-CENTRAL Last administered on 11/30/16 21:51; Start 11/26/16 at 20:00 Insulin Aspart (NovoLOG SUPPLEMENTAL SCALE) 1 ACHS SLIDING SCALE SQ Last administered on 12/01/16 05:51; Start 11/26/16 at 11:00 Dextrose (D50w (Vial) Inj) 25 ml UNSCH PRN IV PUSH HYPOGLYCEMIA-SEE COMMENTS; Start 11/26/16 at 09:15 Glucagon 1 mg 1 mg UNSCH PRN OTHER HYPOGLYCEMIA-SEE COMMENTS; Start 11/26/16 at 09:15 Multivitamins/ Folic Acid/ Insulin Human Regular/Amino Acids/ Electrolytes/ Dextrose (Mvi-12 Inj/ Folvite Inj/ NovoLIN R INJ/ Clinimix E 02/26) 2,010.6 ml @ 75 mls/hr Q24H IV-CENTRAL Last administered on 11/30/16 21:51; Start at 20:00 A/P Problem List: (1) Acute exacerbation of chronic obstructive pulmonary disease (COPD) ICD Code: J44.1 Status: Acute (2) Bladder cancer ICD Code: C67.9 Status: Acute (3) HTN (hypertension) ICD Code: I10 Status: Acute (4) Atrial flutter ICD Code: I48.92 Status: Acute Assessment and Plan A/P Bladder cancer - status post radical cystoscopy prostatectomy. Status post ileal conduit. Further management per urology, pain control per urology, weaned off TPN. previously discussed with Dr. Huff 11/25. tolerating full liquids and on TPN. Acute exacerbation of COPD-resolved, continue oxygen support, status post Levaquin. Continue bronchodilators. ileus vs Partial small bowel obstruction. Improved. tolerating full liquids. may consider advancing if okay with surgery. Enterocutaneous fistula. Tolerating diet. Continue wound care. Maximize nutrition with by mouth and TPN- Will need repair in 8-10 weeks per GS Atrial flutter with RVR - [id number] score 2 (Age, Hx of HTN). Continue oral Cardizem and apixaban. Patient evaluated by cardiology. Stable Hypertension -Patient apparently takes Micardis at home. He isn't orthostatic secondary to anemia and BP meds. Blood pressure stable. Anemia secondary to acute blood loss. Status post transfusion with appropriate response monitor CBC. Leukocytosis. Patient no fever but has some erythema around the abdominal wound. Ct Augmentin to December 02 Fluid overload - Continue Lasix FEN. Ct TPN and diet Hyperkalemia-resolved Hyponatremia-could be from hypervolemia on Lasix. Asymptomatic Hyperglycemia secondary to TPN hx borderline DM. Follow-up A1c is 6.4. Added 40 units units regular insulin per TPN bag and ct high dose sliding scale, continue insulin dose per glycemic trends. Hypoglycemic protocol. Deconditioning. d/w piano case and bench assembler and patient will be d/c to [facility]. DVT prophylaxis eliquis Discharge Planning d/w case management. Once cleared by surgery patient will d/c to [facility]. At the moment he is still on TPN and per piano case and bench assembler patient can go to [facility] on TPN. piano case and bench assembler stated she will notify me when he can be transfer. Patricia Perez MD Dec 01, 2016 10:54
--- NOTE | 2016-12-01 15:54 | HHI.PR ---
Subjective Subjective Notes Up to chair No leaks since he has been out of bed at bedside Objective Vitals/I&O Vital Signs Date Time Temp Pulse Resp B/P Pulse Ox O2 Delivery O2 Flow Rate FiO2 12/01/16 12:00 97.8 80 18 134/69 97 12/01/16 08:13 Nasal Cannula 2.00 11/29/16 07:52 21 Labs Laboratory Tests Test 12/01/16 05:45 White Blood Count 9.8 Red Blood Count 2.80 Hemoglobin 8.6 Hematocrit 25.4 Mean Corpuscular Volume 90.8 Mean Corpuscular Hemoglobin 30.8 Mean Corpuscular Hemoglobin 33.9 Concent Red Cell Distribution Width 14.9 Platelet Count 310 Mean Platelet Volume 7.0 Sodium Level 133 Potassium Level 4.6 Chloride Level 98 Carbon Dioxide Level 27.9 Anion Gap 7 Blood Urea Nitrogen 24 Creatinine 0.75 Estimat Glomerular Filtration 103 Rate Random Glucose 157 Calcium Level 8.3 Magnesium Level 2.2 Cardiovascular: Regular Lungs: Clear Abdomen: Other (see below ) Extremities: No edema Narrative Exam Abd: urostomy in place with drainage bag---stoma dark; large midline fistula x2 with stool output; 1 smaller fistula with no output; skin red around wounds A/P Assessment and Plan 70 year old male s/p radical cystectomy and ileo conduit (by Urology); s/p UHR ( by General Surgery) -Continue wound management bag for wound drainage and connect to wound draining bag; Appreciate Wound Care team -on fulls + Ensure -TPN -Encourage mobilization ---OOB daily and ambulate in room and hallway -Spoke with Dr. Monreal last week ---patient should remain in the acute hospital setting for now due to complexity of wounds I certify and attest that I personally examined this patient and reviewed her findings in the EMR. Ms Reyes is documenting our encounter on my behalf and entered orders under my direct supervision. I discussed our recommendations with the patient and family at the bedside. I also discussed our encounter with the nursing staff present. PAULO MELGAR MD [facility] Annika Reyes Dec 01, 2016 15:54 Paulo Melgar MD Dec 05, 2016 10:40
[2016-12-01] MEDS: MULTIVITAMIN INJ 10 ML, FOLIC ACID INJ 1 MG, INSULIN HUMAN REGULAR INJ 40 UNITS in AMIN... IV-CENTRAL SCH (16:58)
[2016-12-01] MEDS: ATORVASTATIN 40 MG TAB PO SCH (20:38)
[2016-12-01] MEDS: diphenhydrAMINE HCL 25 MG CAP PO PRN (22:33)
[2016-12-01] MEDS: oxyCODONE/ACETAMINOPHEN 5 MG/325 MG TAB PO PRN (22:34)
[2016-12-02] VITALS (8 sets, daily range): BP systolic 122–139; BP diastolic 48–64; PULSE 70–79; RESP 18–20; TEMP 96.5–98; O2SAT 94–97
[2016-12-02] MEDS: INSULIN ASPART SUPPLEMENTAL SCALE SQ SCH ×4 (06:04→21:06)
[2016-12-02] MEDS: AMOXICILLIN/CLAVULANATE K 875 MG TAB PO SCH (08:36)
[2016-12-02] MEDS: BUDESONIDE-FORMOTEROL 160/4.5 MCG INHALER INH SCH ×2 (08:36→21:02)
[2016-12-02] MEDS: SPIRIVA RESPIMAT INH SCH (08:36)
[2016-12-02] MEDS: APIXABAN 5 MG TABLET PO SCH ×2 (08:37→21:01)
[2016-12-02] MEDS: FUROSEMIDE 20 MG TAB PO SCH ×2 (08:37→17:49)
[2016-12-02] MEDS: DILTIAZEM-CD 120 MG CAP ER PO SCH (08:37)
[2016-12-02] MEDS: PANTOPRAZOLE SOD 40 MG DELAYED RELEASE TAB PO SCH (08:37)
[2016-12-02] MEDS: CETIRIZINE HCL 10 MG TAB PO SCH (08:37)
[2016-12-02] MEDS: SODIUM CHLORIDE 0.9% FLUSH 5 ML FLUSH IVF SCH (09:00)
--- NOTE | 2016-12-02 11:02 | HHI.PR ---
Subjective Remarks f/u with ostomy and wounds patient stated he feels a little down and thinks its because of the weather. He stated this is common for him when the weather is gloomy. Patient denied any N/V or abdominal pain. is at the bedside. Objective Vitals Vital Signs Date Time Temp Pulse Resp B/P Pulse Ox O2 Delivery O2 Flow Rate FiO2 12/02/16 08:32 98.0 78 18 126/48 97 12/02/16 07:45 2.00 12/02/16 04:00 96.9 72 20 125/58 97 12/02/16 00:00 97.3 78 18 137/64 97 12/01/16 23:34 18 12/01/16 20:40 Room Air 12/01/16 20:00 97.1 82 18 131/62 97 12/01/16 16:00 97.7 78 18 136/68 99 12/01/16 12:00 97.8 80 18 134/69 97 I/O 12/01/16 12/01/16 12/01/16 12/02/16 12/02/16 12/02/16 07:00 15:00 23:00 07:00 15:00 23:00 Intake Total 1094 ml 240 ml 620 ml 2020 ml Output Total 500 ml 1000 ml 850 ml Balance 594 ml 240 ml -380 ml 1170 ml Intake Oral 240 ml 240 ml 620 ml IV Total 2020 ml TPN/PPN 600 ml Lipid 254 ml Drainage Total 500 ml 1000 ml 850 ml Result Diagram: 12/01/16 0545 12/01/16 0545 Objective Remarks Gen NAD CV RRR. no r.m.g Abd ostomy bag in place. no TTP of abdomen Procedures 11/05/2016 Symptomatic large supraumbilical hernia. Bladder cancer requiring radical cystectomy. 11/08/2016 1. Radical cystoprostatectomy with ileal conduit. 2. Bilateral pelvic lymph node dissection. Right IJ central line Medications and IVs Current Medications Cefazolin Sodium/ Dextrose 50 ml @ 100 mls/hr SP[employer]PER[employer] SPACELIFT IV Last administered on 11/05/16 06:54; Start 11/05/16 at 06:30; Stop 11/06/16 at 06:29; Status DC Lactated Ringer's 1,000 ml @ 30 mls/hr Q24H IV Last administered on 11/05/16 06:15; Start 11/05/16 at 07:30; Stop 11/11/16 at 12:30; Status DC Sodium Chloride (NS 500 ml Inj) 500 ml @ 30 mls/hr [id number] IV ; Start 11/05/16 at 07:30; Stop 11/06/16 at 07:29; Status DC Insulin Human Regular (NovoLIN R INJ) See Protocol Table ... UNSCH X1 PRN SQ SEE PROTOCOL; Start 11/05/16 at 05:45; Stop 11/06/16 at 05:44; Status DC Metoprolol Tartrate 25 mg 25 mg UNSCH X1 PRN PO SEE LABEL COMMENTS; Start at 05:45; Stop 11/06/16 at 05:44; Status DC Sodium Bicarbonate (Sodium Bicarbonate 8.4% Inj) 50 ml @ As Directed STK-MED ONCE .ROUTE ; Start 11/05/16 at 06:48; Stop 11/05/16 at 06:49; Status DC Lidocaine/ Epinephrine (Xylocaine-Epi 1%-1:100,000 Inj) 30 ml STK-MED ONCE .ROUTE ; Start 11/05/16 at 06:48; Stop 11/05/16 at 06:49; Status DC Gelatin (Gelfoam 100 Top) 1 foam STK-MED ONCE .ROUTE ; Start 11/05/16 at 06:48; Stop 11/05/16 at 06:49; Status DC Bacitracin (Baciguent Oint) 15 applic STK-MED ONCE .ROUTE ; Start 11/05/16 at 06: 48; Stop 11/05/16 at 06:49; Status DC Bupivacaine HCl/ Epinephrine Bitart (Sensorcaine-Epinephrine Pf 0.5% Inj) 30 ml STK-MED ONCE .ROUTE Last administered on 11/05/16 12:00; Start 11/05/16 at 06:56 ; Stop 11/05/16 at 06:57; Status DC Albuterol/ Ipratropium (Duoneb Neb) 1 ampule STK-MED ONCE .ROUTE Last administered on 11/05/16 07:11; Start 11/05/16 at 07:11; Stop 11/05/16 at 07:12; Status DC Midazolam HCl (Versed Inj) 2 mg STK-MED ONCE .ROUTE Last administered on 07:24; Start 11/05/16 at 07:23; Stop 11/05/16 at 07:24; Status DC Fentanyl Citrate (fentaNYL INJ) 1,000 mcg STK-MED ONCE .ROUTE ; Start 11/05/16 at 07:27; Stop 11/05/16 at 07:28; Status DC Cefazolin Sodium (Ancef Inj) 2,000 mg STK-MED ONCE IV Last administered on 11:00; Start 11/05/16 at 11:00; Stop 11/05/16 at 11:08; Status DC Pantoprazole Sodium (Protonix Inj) 40 mg Q24H IV PUSH Last administered on 11/18 15:40; Start 11/05/16 at 14:00; Stop 11/18/16 at 18:40; Status DC Ondansetron HCl 4 mg 4 mg Q6HR PRN IV PUSH NAUSEA Last administered on 14:20; Start 11/05/16 at 13:00 Cefazolin Sodium 1000 mg/Sodium Chloride 100 ml @ 200 mls/hr Q8H IV Last administered on 11/07/16 08:41; Start 11/05/16 at 18:00; Stop 11/07/16 at 13:29; Status DC Gentamicin Sulfate/Sodium Chloride (Gentamicin Inj/ NS Inj) 103 ml @ 100 mls/ hr Q24H IV Last administered on 11/06/16 14:41; Start 11/05/16 at 15:00; Stop at 13:29; Status DC Acetaminophen (Ofirmev Inj) 1,000 mg Q6H IV Last administered on 11/16/16 01: 55; Start 11/05/16 at 14:00; Stop 11/16/16 at 08:26; Status DC Aspirin (Ecotrin Ec) 81 mg DAILY PO ; Start 11/06/16 at 09:00; Stop 11/06/16 at 09 :00; Status DC Atorvastatin Calcium (Lipitor) 40 mg HS PO Last administered on 12/01/16 20:38 ; Start 11/05/16 at 21:00 Cetirizine HCl (ZyrTEC) 10 mg DAILY PO Last administered on 12/02/16 08:37; Start 11/06/16 at 09:00 Losartan Potassium (Cozaar) 100 mg DAILY PO Last administered on 11/19/16 09: 04; Start 11/05/16 at 17:00; Stop 11/25/16 at 13:35; Status DC Budesonide/ Formoterol Fumarate (Symbicort 160-4.5 Inh) 1 puff BID INH Last administered on 12/02/16 08:36; Start 11/05/16 at 14:00 Patient Own Medication PT OWN MED: SPIR... DAILY INH Last administered on 08:47; Start 11/05/16 at 14:00; Stop 11/22/16 at 21:26; Status DC Fentanyl Citrate (fentaNYL INJ) 250 mcg STK-MED ONCE .ROUTE ; Start 11/05/16 at 13:05; Stop 11/05/16 at 13:06; Status DC Morphine Sulfate (*morphine INJ PERIprocedure ONLY) 8 mg STK-MED ONCE .ROUTE Last administered on 11/05/16 13:15; Start 11/05/16 at 13:15; Stop 11/05/16 at 13: 16; Status DC Morphine Sulfate (*morphine INJ PERIprocedure ONLY) 8 mg STK-MED ONCE .ROUTE Last administered on 11/05/16 13:36; Start 11/05/16 at 13:36; Stop 11/05/16 at 13: 37; Status DC Morphine Sulfate (Morphine 1 Mg/ ml WELL DRILL OPERATOR CABLE TOOL) 30 mg UNSCH IV Last administered on 13:00; Start 11/05/16 at 13:45; Stop 11/07/16 at 13:29; Status DC WELL DRILL OPERATOR CABLE TOOL Dosage Infused (Pha) 1 Q8HR .XX Last administered on 11/07/16 05:41; Start 11/05/16 at 14:00; Stop 11/07/16 at 13:29; Status DC Naloxone HCl (Narcan Inj) 0.4 mg UNSCH PRN IV RESPIRATORY RATE LESS THAN 10; Start 11/05/16 at 13:45; Stop 11/07/16 at 13:29; Status DC Miscellaneous Information ALL NURSING DEPARTME... UNSCH PRN XX SEE LABEL COMMENTS; Start 11/05/16 at 12:59; Stop 11/06/16 at 12:58; Status DC Sodium Chloride (NS 1000 ml Inj) 1,000 ml @ 83 mls/hr Q12H3M IV Last administered on 11/14/16 15:05; Start 11/05/16 at 14:00; Stop 11/15/16 at 05:47 ; Status DC Morphine Sulfate (*morphine INJ PERIprocedure ONLY) 8 mg STK-MED ONCE .ROUTE Last administered on 11/05/16 13:53; Start 11/05/16 at 13:53; Stop 11/05/16 at 13: 54; Status DC Erythromycin (Erythromycin 0.5% Opth Oint) 1 gm STK-MED ONCE .ROUTE ; Start 11/05 at 17:46; Stop 11/05/16 at 17:47; Status DC Balanced Salt Solution (Bss Opth Soln) 1 application times 1... ONCE ONCE LEFT EYE ; Start 11/05/16 at 18:00; Stop 11/05/16 at 18:01; Status DC Tetracaine HCl (Pontocaine 0.5% Opht Soln) 1 application times 1... ONCE ONCE LEFT EYE ; Start 11/05/16 at 18:00; Stop 11/05/16 at 18:01; Status DC Erythromycin (Ilotycin 0.5% Opth Oint) Instill 1/ 4 inch times 1... ONCE ONCE LEFT EYE ; Start 11/05/16 at 18:00; Stop 11/05/16 at 18:01; Status DC Non-Formulary Medication TETRACAINE 0.5% OPTH SOLN ... ONCE ONCE LEFT EYE Last administered on 11/05/16 21:07; Start 11/05/16 at 18:00; Stop 11/05/16 at 18: 01; Status DC Propofol 200 mg 200 mg STK-MED ONCE IV ; Start 11/05/16 at 12:00; Stop 11/06/16 at 11:52; Status DC Lactated Ringer's 5,000 ml @ As Directed STK-MED ONCE IV ; Start 11/05/16 at 12: 00; Stop 11/06/16 at 11:52; Status DC Sodium Chloride (NS 500 ml Inj) 500 ml @ As Directed STK-MED ONCE IV ; Start at 12:00; Stop 11/06/16 at 11:52; Status DC Ephedrine Sulfate (ePHEDrine/NS 25 MG/5 ML SYR) 25 mg STK-MED ONCE IV ; Start at 12:00; Stop 11/06/16 at 11:52; Status DC Phenylephrine HCl (Neosynephrine/ NS 1000 Mcg/10ml Syr) 1,000 mcg STK-MED ONCE IV ; Start 11/05/16 at 12:00; Stop 11/06/16 at 11:52; Status DC Morphine Sulfate (Morphine Inj) 4 mg Q3H PRN IV PUSH BREAKTHROUGH PAIN Last administered on 11/23/16 04:58; Start 11/07/16 at 13:30; Stop 11/23/16 at 09:51 ; Status DC Calcium Carbonate (Tums Chew) 1,000 mg Q6H PRN CHEW HEARTBURN Last administered on 11/21/16 02:23; Start 11/09/16 at 03:00 Promethazine HCl (Phenergan Inj) 10 mg Q6H PRN IM NAUSEA Last administered on 03:48; Start 11/09/16 at 03:45; Stop 11/25/16 at 13:35; Status DC Metoclopramide HCl (Reglan Inj) 5 mg Q8HR IV PUSH Last administered on 14:39; Start 11/10/16 at 09:00; Stop 11/13/16 at 20:00; Status DC Enalaprilat (Vasotec Inj) 1.25 mg Q6H PRN IV PUSH SBP>160, DBP>90 Last administered on 11/10/16 09:29; Start 11/10/16 at 09:00 Bisacodyl (Dulcolax Supp) 10 mg ONCE ONCE RECTAL Last administered on 09:30; Start 11/10/16 at 08:45; Stop 11/10/16 at 08:46; Status DC Albuterol/ Ipratropium (Duoneb Neb) 1 ampule Q4HR NEB PRN NEB WHEEZING Last administered on 11/11/16 04:09; Start 11/10/16 at 23:00; Stop 11/11/16 at 16:00; Status DC Furosemide (Lasix Inj) 40 mg ONCE ONCE IV PUSH Last administered on 11/11/16 13:13; Start 11/11/16 at 13:00; Stop 11/11/16 at 13:01; Status DC Furosemide (Lasix Inj) 20 mg ONCE ONCE IV PUSH ; Start 11/11/16 at 19:00; Stop 11/11/16 at 19:00; Status DC Albuterol/ Ipratropium (Duoneb Neb) 1 ampule Q4HR WHILE AWAKE NEB NEB Last administered on 11/12/16 11:04; Start 11/11/16 at 16:00; Stop 11/12/16 at 11:37; Status DC Methylprednisolone Sodium Succinate 40 mg 40 mg Q6HR IV PUSH ; Start 11/11/16 at 18:00; Stop 11/11/16 at 18:00; Status DC Levofloxacin/ Dextrose (Levaquin 750 Mg Premix Inj) 150 ml @ 100 mls/hr Q24H IV Last administered on 11/18/16 17:35; Start 11/11/16 at 18:00; Stop 11/18/16 at 18:40; Status DC Furosemide (Lasix Inj) 40 mg ONCE ONCE IV PUSH Last administered on 11/11/16 17:26; Start 11/11/16 at 17:30; Stop 11/11/16 at 17:31; Status DC Diltiazem HCl 20 mg 20 mg ONCE ONCE IVP Last administered on 11/11/16 20:23; Start 11/11/16 at 19:00; Stop 11/11/16 at 19:05; Status DC Diltiazem HCl/ Sodium Chloride (Cardizem Inj/NS Inj) 125 ml @ 0 mls/hr TITRATE IV Last administered on 11/18/16 17:37; Start 11/11/16 at 19:00; Stop 11/20/16 at 16:24; Status DC Diltiazem HCl (Cardizem Inj) 10 mg ONCE ONCE IV Last administered on 11/12/16 02:00; Start 11/12/16 at 02:00; Stop 11/12/16 at 02:01; Status DC Digoxin (Lanoxin Inj) 0.5 mg ONCE ONCE IV PUSH Last administered on 11/12/16 03:42; Start 11/12/16 at 03:30; Stop 11/12/16 at 03:32; Status DC Atropine Sulfate (Atropine Inj) 1 mg STK-MED ONCE .ROUTE ; Start 11/12/16 at 03: 48; Stop 11/12/16 at 03:49; Status DC Lidocaine HCl (Xylocaine 2% Inj) 100 mg STK-MED ONCE .ROUTE ; Start 11/12/16 at 03:48; Stop 11/12/16 at 03:49; Status DC Epinephrine HCl (EPINEPHrine (1:10,000) INJ) 1 mg STK-MED ONCE .ROUTE ; Start at 03:48; Stop 11/12/16 at 03:49; Status DC Lidocaine HCl (Xylocaine 2% Inj) 100 mg STK-MED ONCE .ROUTE ; Start 11/12/16 at 03:50; Stop 11/12/16 at 03:51; Status DC Epinephrine HCl (EPINEPHrine (1:10,000) INJ) 1 mg STK-MED ONCE .ROUTE ; Start at 03:50; Stop 11/12/16 at 03:51; Status DC Iohexol (Omnipaque 350 Inj) 70 ml STK-MED ONCE IV Last administered on 04:14; Start 11/12/16 at 04:14; Stop 11/12/16 at 04:15; Status DC Diltiazem HCl 15 mg 15 mg ONCE ONCE IV ; Start 11/12/16 at 05:15; Stop 11/12/16 at 05:16; Status DC Amiodarone HCl 150 mg/Dextrose 100 ml @ 600 mls/hr ONCE ONCE IV Last administered on 11/12/16 05:41; Start 11/12/16 at 05:15; Stop 11/12/16 at 05:24; Status DC Amiodarone HCl/ Dextrose (Cordarone Inj/ D5W ([place]) Inj) 250 ml @ 0 mls/hr CONTINUOUS IV Last administered on 11/15/16 01:24; Start 11/12/16 at 05:15; Stop 11/15/16 at 15:56; Status DC Heparin Sodium (Porcine) (Heparin Inj) 5,000 units Q12HR SQ ; Start 11/12/16 at 10:00; Stop 11/12/16 at 15:01; Status DC Furosemide (Lasix Inj) 40 mg BID@09,18 IV PUSH Last administered on 11/20/16 08:38; Start 11/12/16 at 18:00; Stop 11/21/16 at 17:25; Status DC Levalbuterol HCl 1.25 mg 1.25 mg Q6HR NEB NEB Last administered on 11/22/16 09:57; Start 11/12/16 at 11:38; Stop 11/22/16 at 10:55; Status DC Heparin Sodium/ Dextrose (Heparin-D5W Inj) 250 ml @ 0 mls/hr TITRATE IV Last administered on 11/22/16 23:09; Start 11/12/16 at 15:15; Stop 11/23/16 at 09:29 ; Status DC Heparin Sodium (Porcine) (Heparin Inj) 5,000 units UNSCH PRN IV aPTT less than 25; Start 11/12/16 at 15:15; Stop 11/23/16 at 09:30; Status DC Heparin Sodium (Porcine) (Heparin Inj) 2,500 units UNSCH PRN IV aPTT 25 to 39 Last administered on 11/17/16 08:27; Start 11/12/16 at 15:15; Stop 11/23/16 at 09:30; Status DC Heparin Sodium (Porcine) (Heparin Inj) 4,000 units ONCE ONCE IV Last administered on 11/12/16 16:40; Start 11/12/16 at 17:00; Stop 11/12/16 at 17:01; Status DC Diatrizoate Meglum/ Diatrizoate Sod ( Gastroview Liq) 18 ml ONCE ONCE PO Last administered on 11/13/16 15:03; Start 11/13/16 at 14:30; Stop 11/13/16 at 14: 31; Status DC Insulin Aspart 1 1 ACHS SLIDING SCALE SQ Last administered on 11/19/16 12:29 ; Start 11/13/16 at 21:00; Stop 11/19/16 at 14:14; Status DC Potassium Chloride (KCl 20 Meq Premix Inj) 100 ml @ 50 mls/hr ONCE ONCE IV Last administered on 11/13/16 21:53; Start 11/13/16 at 21:00; Stop 11/13/16 at 22: 59; Status DC Dextrose (D50w (Vial) Inj) 25 ml UNSCH PRN IV PUSH HYPOGLYCEMIA - SEE COMMENTS ; Start 11/13/16 at 20:30; Stop 11/25/16 at 13:39; Status DC Glucagon (Glucagon Inj) 1 mg UNSCH PRN OTHER HYPOGLYCEMIA-SEE COMMENTS; Start 11/13/16 at 20:30; Stop 11/25/16 at 13:39; Status DC IV Flush (NS Flush) DAILY IVF Last administered on 12/01/16 08:39; Start 08/21 at 09:00 IV Flush UNSCH PRN IVF SEE PROTOCOL; Start 11/14/16 at 16:45 Potassium Chloride (KCl 10 Meq Premix Inj) 100 ml @ 100 mls/hr Q1H IV Last administered on 11/14/16 22:00; Start 11/14/16 at 20:00; Stop 11/14/16 at 22:59 ; Status DC Mupirocin 1 applic 1 applic BID EACH NARE Last administered on 11/21/16 08:06 ; Start 11/14/16 at 21:00; Stop 11/21/16 at 20:59; Status DC Multivitamins 10 ml/Folic Acid 1 mg/Amino Acids/ Electrolytes/ Dextrose 2,010.2 ml @ 75 mls/hr Q24H IV-CENTRAL Last administered on 11/15/16 22:33; Start 07/21 at 20:00; Stop 11/16/16 at 11:30; Status DC Fat Emulsion Intravenous 250 ml @ 31.25 mls/ hr SuWe@20 IV-CENTRAL Last administered on 11/16/16 23:49; Start 11/16/16 at 20:00; Stop 11/17/16 at 13:12 ; Status DC Potassium Chloride (KCl 20 Meq Premix Inj) 100 ml @ 50 mls/hr Q2H IV Last administered on 11/15/16 12:00; Start 11/15/16 at 10:00; Stop 11/15/16 at 13:59 ; Status DC Benzocaine/ Menthol 1 lozenge 1 lozenge Q2H PRN BUCCAL DRY MOUTH Last administered on 11/23/16 04:58; Start 11/15/16 at 09:45 Potassium Chloride (KCl 10 Meq Premix Inj) 100 ml @ 100 mls/hr Q1H IV Last administered on 11/16/16 12:37; Start 11/16/16 at 08:45; Stop 11/16/16 at 11:44 ; Status DC Insulin Human NPH (NovoLIN N INJ) 5 units ONCE ONCE SQ Last administered on 09:37; Start 11/16/16 at 08:45; Stop 11/16/16 at 08:46; Status DC Acetaminophen 325 mg 325 mg Q4H PRN RECTAL HEADACHE, TEMPERATURE > 101; Start 11/16/16 at 08:30 Sodium Chloride/ Sodium Acetate/ Potassium Chloride/Sodium Phosphate/ Magnesium Chloride/Calcium Chloride/ Multivitamins/ Folic Acid/ Insulin Human Regular/ Amino Acids/Dextrose (Sodium Chloride 23.4% Inj/Sodium Acetate Inj/KCl Inj/ Sodium Phosphate Inj/ Magnes... 2,104.2437 ml @ 75 mls/hr Q24H IV-CENTRAL Last administered on 11/16/16 23:41; Start 11/16/16 at 20:00; Stop 11/17/16 at 13:12 ; Status DC Acetaminophen 1000 mg 1,000 mg ONCE ONCE IV Last administered on 11/16/16 23: 47; Start 11/16/16 at 21:15; Stop 11/16/16 at 21:16; Status DC Potassium Chloride 100 ml @ 50 mls/hr Q12HR IV Last administered on 11/18/16 09:36; Start 11/17/16 at 21:00; Stop 11/18/16 at 18:40; Status DC Potassium Chloride 100 ml @ 50 mls/hr Q2H IV Last administered on 11/17/16 10 :12; Start 11/17/16 at 07:30; Stop 11/17/16 at 11:29; Status DC Sodium Chloride 80 meq/Potassium Chloride 80 meq/ Sodium Phosphate 40 meq/ Magnesium Chloride 10 meq/ Calcium Chloride 9 meq/ Multivitamins 10 ml/Folic Acid 1 mg/Insulin Human Regular 20 units/ Amino Acids/ Dextrose 2,092.0937 ml @ 75 mls/hr Q24H IV-CENTRAL ; Start 11/17/16 at 20:00; Stop 11/18/16 at 19:29; Status DC Fat Emulsion Intravenous 250 ml @ 31.25 mls/ hr SuWe@20 IV-CENTRAL ; Start at 20:00; Stop 11/19/16 at 20:00; Status DC Sodium Chloride 80 meq/Potassium Chloride 80 meq/ Sodium Phosphate 60 meq/ Magnesium Chloride 10 meq/ Calcium Chloride 9 meq/ Multivitamins 10 ml/Folic Acid 1 mg/Insulin Human Regular 20 units/ Amino Acids/ Dextrose 2,097.0937 ml @ 75 mls/hr Q24H IV-CENTRAL Last administered on 11/18/16 23:19; Start 11/18/16 at 20:00; Stop 11/19/16 at 09:00; Status DC Fat Emulsion Intravenous (Liposyn Iii 20% Inj) 250 ml @ 31.25 mls/ hr SuWe@20 IV-CENTRAL Last administered on 11/19/16 21:25; Start 11/19/16 at 20:00; Stop 11/23/16 at 21:24; Status DC Pantoprazole Sodium (Protonix) 40 mg DAILY PO Last administered on 12/02/16 08 :37; Start 11/19/16 at 09:00 Diltiazem HCl (Cardizem) 30 mg QID PO Last administered on 11/25/16 19:33; Start 11/18/16 at 21:00; Stop 11/26/16 at 06:00; Status DC Potassium Chloride 20 meq 20 meq Q12HR PO Last administered on 11/20/16 20:15 ; Start 11/18/16 at 21:00; Stop 11/21/16 at 06:00; Status DC Sodium Chloride 80 meq/Potassium Chloride 80 meq/ Sodium Phosphate 40 meq/ Magnesium Chloride 10 meq/ Calcium Chloride 9 meq/ Multivitamins 10 ml/Folic Acid 1 mg/Insulin Human Regular 25 units/ Amino Acids/ Dextrose 2,092.1437 ml @ 75 mls/hr Q24H IV-CENTRAL ; Start 11/18/16 at 19:29; Stop 11/18/16 at 19:31; Status DC Sodium Chloride 80 meq/Potassium Chloride 80 meq/ Sodium Phosphate 40 meq/ Magnesium Chloride 10 meq/ Calcium Chloride 9 meq/ Multivitamins 10 ml/Folic Acid 1 mg/Insulin Human Regular 25 units/ Amino Acids/ Dextrose 2,092.1437 ml @ 75 mls/hr Q24H IV-CENTRAL ; Start 11/19/16 at 20:00; Stop 11/19/16 at 20:00; Status DC Piperacillin Sod/ Tazobactam Sod (Zosyn 4.5 Gm Premix) 100 ml @ 200 mls/hr Q6H IV Last administered on 11/21/16 08:06; Start 11/19/16 at 14:00; Stop at 12:58; Status DC Insulin Aspart 1 1 ACHS SLIDING SCALE SQ Last administered on 11/23/16 06:23 ; Start 11/19/16 at 16:00; Stop 11/23/16 at 14:58; Status DC Sodium Chloride/ Potassium Chloride/Sodium Phosphate/ Magnesium Chloride/ Calcium Chloride/ Multivitamins/ Folic Acid/ Insulin Human Regular/Amino Acids/ Dextrose (Sodium Chloride 23.4% Inj/KCl Inj/ Sodium Phosphate Inj/Magnesium Chloride Inj/ Calcium Chloride Inj/Mvi-12 I... 2,092.2137 ml @ 75 mls/hr Q24H IV -CENTRAL Last administered on 11/19/16 20:50; Start 11/19/16 at 20:00; Stop at 20:00; Status DC Albuterol Sulfate (Albuterol Neb) 0.63 mg Q4HR NEB PRN NEB sob; Start 11/20/16 at 07:30 Insulin Detemir 10 units 10 units NOW ONCE SQ Last administered on 11/20/16 08:39; Start 11/20/16 at 07:45; Stop 11/20/16 at 07:53; Status DC Sodium Chloride 80 meq/Potassium Chloride 80 meq/ Sodium Phosphate 40 meq/ Magnesium Chloride 10 meq/ Calcium Chloride 9 meq/ Multivitamins 10 ml/Folic Acid 1 mg/Insulin Human Regular 40 units/ Amino Acids/ Dextrose 2,092.2937 ml @ 75 mls/hr Q24H IV-CENTRAL Last administered on 11/20/16 22:58; Start 11/20/16 at 20:00; Stop 11/21/16 at 06:03; Status DC Diltiazem HCl/ Sodium Chloride (Cardizem Inj/NS Inj) 125 ml @ 0 mls/hr TITRATE PRN IV RVR > 120 for 20 mins; Start 11/20/16 at 16:30; Stop 11/23/16 at 09:30; Status DC Insulin Detemir 12 units 12 units NOW ONCE SQ ; Start 11/21/16 at 06:00; Stop 11/21/16 at 06:04; Status DC Sodium Chloride 80 meq/Potassium Chloride 40 meq/ Sodium Phosphate 40 meq/ Magnesium Chloride 10 meq/ Calcium Chloride 9 meq/ Multivitamins 10 ml/Folic Acid 1 mg/Insulin Human Regular 40 units/ Amino Acids/ Dextrose 2,072.2937 ml @ 75 mls/hr Q24H IV-CENTRAL ; Start 11/21/16 at 06:15; Stop 11/21/16 at 06:38; Status DC Sodium Chloride/ Potassium Chloride/Sodium Phosphate/ Magnesium Chloride/ Calcium Chloride/ Multivitamins/ Folic Acid/ Insulin Human Regular/Amino Acids/ Dextrose (Sodium Chloride 23.4% Inj/KCl Inj/ Sodium Phosphate Inj/Magnesium Chloride Inj/ Calcium Chloride Inj/Mvi-12 I... 2,072.2937 ml @ 75 mls/hr Q24H IV -CENTRAL Last administered on 11/21/16 20:24; Start 11/21/16 at 20:00; Stop at 09:38; Status DC Diphenhydramine HCl (Benadryl) 25 mg HS PRN PO insomnia Last administered on 22:33; Start 11/21/16 at 10:30 Furosemide (Lasix Inj) 10 mg BID@18 IV PUSH Last administered on 11/23/16 09:25; Start 11/21/16 at 18:00; Stop 11/23/16 at 09:30; Status DC Insulin Detemir 10 units 10 units NOW ONCE SQ Last administered on 11/22/16 09:53; Start 11/22/16 at 09:00; Stop 11/22/16 at 09:09; Status DC Sodium Chloride/ Potassium Chloride/Sodium Phosphate/ Magnesium Chloride/ Calcium Chloride/ Multivitamins/ Folic Acid/ Insulin Human Regular/Amino Acids/ Dextrose (Sodium Chloride 23.4% Inj/KCl Inj/ Sodium Phosphate Inj/Magnesium Chloride Inj/ Calcium Chloride Inj/Mvi-12 I... 2,062.2937 ml @ 75 mls/hr Q24H IV -CENTRAL ; Start 11/22/16 at 20:00; Stop 11/22/16 at 20:00; Status DC Albuterol/ Ipratropium 1 ampule 1 ampule QID NEB NEB Last administered on 11/29 11:42; Start 11/22/16 at 12:00; Stop 11/29/16 at 13:35; Status DC Sodium Chloride/ Potassium Chloride/Sodium Phosphate/ Magnesium Chloride/ Calcium Chloride/ Multivitamins/ Folic Acid/ Insulin Human Regular/Amino Acids/ Dextrose (Sodium Chloride 23.4% Inj/KCl Inj/ Sodium Phosphate Inj/Magnesium Chloride Inj/ Calcium Chloride Inj/Mvi-12 I... 1,036.2469 ml @ 40 mls/hr Q24H IV -CENTRAL Last administered on 11/22/16 20:12; Start 11/22/16 at 20:00; Stop at 21:24; Status DC Alteplase, Recombinant (Cathflo Activase Inj) 6 mg UNSCH X1 IV FLUSH Last administered on 11/22/16 18:01; Start 11/22/16 at 17:15; Stop 11/22/16 at 21:00 ; Status DC Patient Own Medication PT OWN MED: SPIR... DAILY INH Last administered on 08:36; Start 11/23/16 at 09:00 Apixaban (Eliquis) 5 mg BID PO Last administered on 12/02/16 08:37; Start at 10:00 Furosemide (Lasix) 20 mg BID@09,18 PO Last administered on 12/02/16 08:37; Start 11/23/16 at 18:00 Oxycodone/ Acetaminophen 2 tab 2 tab Q6H PRN PO PAIN SCALE 6 TO 10 Last administered on 12/01/16 22:34; Start 11/23/16 at 10:00 Cefazolin Sodium/ Sodium Chloride (Ancef Inj/NS Inj) 100 ml @ 200 mls/hr Q8H IV Last administered on 11/25/16 11:00; Start 11/23/16 at 11:00; Stop at 13:41; Status DC Insulin Aspart (NovoLOG SUPPLEMENTAL SCALE) 1 ACHS SLIDING SCALE SQ Last administered on 11/25/16 11:00; Start 11/23/16 at 16:00; Stop 11/25/16 at 13:39 ; Status DC Diltiazem HCl (Cardizem Cd) 120 mg DAILY PO Last administered on 12/02/16 08: 37; Start 11/26/16 at 09:00 Insulin Aspart (NovoLOG SUPPLEMENTAL SCALE) 1 ACHS SLIDING SCALE SQ Last administered on 11/26/16 06:19; Start 11/25/16 at 16:00; Stop 11/26/16 at 09:10 ; Status DC Amoxicillin/ Clavulanate Potassium 875 mg 875 mg Q12HR PO Last administered on 12/02/16 08:36; Start 11/25/16 at 21:00; Stop 12/02/16 at 20:59 Multivitamins 10 ml/Folic Acid 1 mg/Amino Acids/ Electrolytes/ Dextrose 2,010.2 ml @ 75 mls/hr Q24H IV-CENTRAL Last administered on 11/25/16 19:31; Start at 20:00; Stop 11/26/16 at 14:15; Status DC Fat Emulsion Intravenous (Liposyn Iii 20% Inj) 250 ml @ 31.25 mls/ hr SuWe@20 IV-CENTRAL Last administered on 11/30/16 21:51; Start 11/26/16 at 20:00 Insulin Aspart (NovoLOG SUPPLEMENTAL SCALE) 1 ACHS SLIDING SCALE SQ Last administered on 12/02/16 06:04; Start 11/26/16 at 11:00 Dextrose (D50w (Vial) Inj) 25 ml UNSCH PRN IV PUSH HYPOGLYCEMIA-SEE COMMENTS; Start 11/26/16 at 09:15 Glucagon 1 mg 1 mg UNSCH PRN OTHER HYPOGLYCEMIA-SEE COMMENTS; Start 11/26/16 at 09:15 Multivitamins/ Folic Acid/ Insulin Human Regular/Amino Acids/ Electrolytes/ Dextrose (Mvi-12 Inj/ Folvite Inj/ NovoLIN R INJ/ Clinimix E 02/26) 2,010.6 ml @ 75 mls/hr Q24H IV-CENTRAL Last administered on 12/01/16 16:58; Start at 20:00 A/P Problem List: (1) Acute exacerbation of chronic obstructive pulmonary disease (COPD) ICD Code: J44.1 Status: Acute (2) Bladder cancer ICD Code: C67.9 Status: Acute (3) HTN (hypertension) ICD Code: I10 Status: Acute (4) Atrial flutter ICD Code: I48.92 Status: Acute Assessment and Plan A/P Bladder cancer - status post radical cystoscopy prostatectomy. Status post ileal conduit. Further management per urology, pain control per urology, weaned off TPN. previously discussed with Dr. Huff 11/25. tolerating full liquids and on TPN. Acute exacerbation of COPD-resolved, continue oxygen support, status post Levaquin. Continue bronchodilators. ileus vs Partial small bowel obstruction. Improved. tolerating full liquids. may consider advancing if okay with surgery. Enterocutaneous fistula. Tolerating diet. Continue wound care. Maximize nutrition with by mouth and TPN- Will need repair in 8-10 weeks per GS Atrial flutter with RVR - TPR1DTwnub score 2 (Age, Hx of HTN). Continue oral Cardizem and apixaban. Patient evaluated by cardiology. Stable Hypertension -Patient apparently takes Micardis at home. He isn't orthostatic secondary to anemia and BP meds. Blood pressure stable. Anemia secondary to acute blood loss. Status post transfusion with appropriate response monitor CBC. Leukocytosis. Patient no fever but has some erythema around the abdominal wound. Ct Augmentin to December 02 Fluid overload - Continue Lasix FEN. Ct TPN and diet Hyperkalemia-resolved Hyponatremia-could be from hypervolemia on Lasix. Asymptomatic Hyperglycemia secondary to TPN hx borderline DM. Follow-up A1c is 6.4. on 40 units units regular insulin per TPN bag and ct high dose sliding scale,continue insulin dose per glycemic trends. Hypoglycemic protocol. Deconditioning. will have PT work with patient while he is hospitalized. DVT prophylaxis eliquis Discharge Planning d/w with surgery and they stated they want patient to stay him until they see better improvement with wound healing which may take weeks. d/w case management in regards to this. Patricia Perez MD Dec 02, 2016 11:02
--- NOTE | 2016-12-02 13:11 | HHI.PR ---
Subjective Remarks Up OOB today. Feels stronger. Denies abdominal pain, N/V/F. Not much out per rectum other than gas. Objective Vital Signs Vital Signs Date Time Temp Pulse Resp B/P Pulse Ox O2 Delivery O2 Flow Rate FiO2 12/02/16 08:32 98.0 78 18 126/48 97 12/02/16 07:45 2.00 12/02/16 04:00 96.9 72 20 125/58 97 12/02/16 00:00 97.3 78 18 137/64 97 12/01/16 23:34 18 12/01/16 20:40 Room Air 12/01/16 20:00 97.1 82 18 131/62 97 12/01/16 16:00 97.7 78 18 136/68 99 I/O 12/01/16 12/01/16 12/01/16 12/02/16 12/02/16 12/02/16 07:00 15:00 23:00 07:00 15:00 23:00 Intake Total 1094 ml 240 ml 620 ml 2020 ml Output Total 500 ml 1000 ml 850 ml Balance 594 ml 240 ml -380 ml 1170 ml Intake Oral 240 ml 240 ml 620 ml IV Total 2020 ml TPN/PPN 600 ml Lipid 254 ml Drainage Total 500 ml 1000 ml 850 ml Result Diagram: 12/01/16 0545 12/01/1645 Objective Remarks NAD. A/O x 3 RRR Respiration Nonlabored abd soft, no peritoneal signs. colostomy bag in place, mild erythema around skin incision. Still high output from fistula. Ileal conduit more pink, viable. Appears tip of conduit has sloughed off. Ext NT. No c/c/e Procedures Radical Cystoprostatectomy, Pelvic LN dissection, Ileal Conduit 11/05/2016 Assessment and Plan Assessment and Plan s/p Radical Cystoprostatectomy, Ileal Conduit with post operative ileus, A- flutter with RVR, enterocutaneous fistula -continue TPN, full diet. -PT/OT -Will likely need definitive surgical repair in 6-8 weeks. -Appreciate all other service input -Recommend against rehab at this time due to complexity of fistula, wounds. Duncan Huff MD Dec 02, 2016 13:11
[2016-12-02] MEDS: ATORVASTATIN 40 MG TAB PO SCH (21:01)
[2016-12-02] MEDS: MULTIVITAMIN INJ 10 ML, FOLIC ACID INJ 1 MG, INSULIN HUMAN REGULAR INJ 40 UNITS in AMIN... IV-CENTRAL SCH (21:02)
[2016-12-02] MEDS: oxyCODONE/ACETAMINOPHEN 5 MG/325 MG TAB PO PRN (23:37)
[2016-12-02] MEDS: diphenhydrAMINE HCL 25 MG CAP PO PRN (23:37)
[2016-12-03] VITALS (8 sets, daily range): BP systolic 113–148; BP diastolic 48–64; PULSE 63–91; RESP 17–25; TEMP 95.4–98.9; O2SAT 93–99
[2016-12-03] MEDS: INSULIN ASPART SUPPLEMENTAL SCALE SQ SCH ×4 (05:20→20:31)
[2016-12-03] MEDS: APIXABAN 5 MG TABLET PO SCH ×2 (09:23→20:19)
[2016-12-03] MEDS: FUROSEMIDE 20 MG TAB PO SCH ×2 (09:23→17:39)
[2016-12-03] MEDS: DILTIAZEM-CD 120 MG CAP ER PO SCH (09:23)
[2016-12-03] MEDS: PANTOPRAZOLE SOD 40 MG DELAYED RELEASE TAB PO SCH (09:24)
[2016-12-03] MEDS: BUDESONIDE-FORMOTEROL 160/4.5 MCG INHALER INH SCH ×2 (09:24→20:31)
[2016-12-03] MEDS: CETIRIZINE HCL 10 MG TAB PO SCH (09:24)
[2016-12-03] MEDS: SPIRIVA RESPIMAT INH SCH (09:26)
--- NOTE | 2016-12-03 10:25 | HHI.PR ---
Subjective Remarks f/u for wound patient stated he is doing well today. he stated he is tolerating his diet but the Glucerna irritates his stomach. Otherwise his ambulating with no difficulty. Denied any pain and remains afebrile. No leakage from bag yet. Objective Vitals Vital Signs Date Time Temp Pulse Resp B/P Pulse Ox O2 Delivery O2 Flow Rate FiO2 12/03/16 08:00 98.9 79 25 114/64 97 12/03/16 04:00 96.7 74 20 127/59 99 12/03/16 00:40 18 12/03/16 00:00 96.1 80 20 148/63 97 12/02/16 20:50 Room Air 12/02/16 20:00 96.5 75 20 139/54 97 12/02/16 18:18 96 Nasal Cannula 2.00 12/02/16 17:19 96.9 70 20 129/59 96 12/02/16 14:22 94 Nasal Cannula 2.00 12/02/16 12:30 97.0 79 18 122/58 96 I/O 12/02/16 12/02/16 12/02/16 12/03/16 12/03/16 12/03/16 07:00 15:00 23:00 07:00 15:00 23:00 Intake Total 3920 ml 3428 ml 0 ml Output Total 850 ml 4145 ml 1850 ml Balance 3070 ml -717 ml 0 ml -1850 ml Intake Oral 1900 ml 960 ml 0 ml IV Total 2020 ml 2468 ml Stool Total 845 ml Drainage Total 850 ml 3300 ml 1850 ml Result Diagram: 12/01/16 0545 12/01/16 0545 Objective Remarks Gen NAD CV RRR. no r.m.g Abd ostomy bag in place. no TTP of abdomen Procedures 11/05/2016 Symptomatic large supraumbilical hernia. Bladder cancer requiring radical cystectomy. 11/08/2016 1. Radical cystoprostatectomy with ileal conduit. 2. Bilateral pelvic lymph node dissection. Right IJ central line Medications and IVs Current Medications Cefazolin Sodium/ Dextrose 50 ml @ 100 mls/hr VOLUNTEER PATIENT REPRESENTATIVE IV Last administered on 11/05/16t 06:54; Start 11/05/16 at 06:30; Stop 11/06/16 at 06:29; Status DC Lactated Ringer's 1,000 ml @ 30 mls/hr Q24H IV Last administered on 11/05/16 06:15; Start 11/05/16 at 07:30; Stop 11/11/16 at 12:30; Status DC Sodium Chloride (NS 500 ml Inj) 500 ml @ 30 mls/hr [id number] IV ; Start 11/05/16 at 07:30; Stop 11/06/16 at 07:29; Status DC Insulin Human Regular (NovoLIN R INJ) See Protocol Table ... UNSCH X1 PRN SQ SEE PROTOCOL; Start 11/05/16 at 05:45; Stop 11/06/16 at 05:44; Status DC Metoprolol Tartrate 25 mg 25 mg UNSCH X1 PRN PO SEE LABEL COMMENTS; Start at 05:45; Stop 11/06/16 at 05:44; Status DC Sodium Bicarbonate (Sodium Bicarbonate 8.4% Inj) 50 ml @ As Directed STK-MED ONCE .ROUTE ; Start 11/05/16 at 06:48; Stop 11/05/16 at 06:49; Status DC Lidocaine/ Epinephrine (Xylocaine-Epi 1%-1:100,000 Inj) 30 ml STK-MED ONCE .ROUTE ; Start 11/05/16 at 06:48; Stop 11/05/16 at 06:49; Status DC Gelatin (Gelfoam 100 Top) 1 foam STK-MED ONCE .ROUTE ; Start 11/05/16 at 06:48; Stop 11/05/16 at 06:49; Status DC Bacitracin (Baciguent Oint) 15 applic STK-MED ONCE .ROUTE ; Start 11/05/16 at 06: 48; Stop 11/05/16 at 06:49; Status DC Bupivacaine HCl/ Epinephrine Bitart (Sensorcaine-Epinephrine Pf 0.5% Inj) 30 ml STK-MED ONCE .ROUTE Last administered on 11/05/16 12:00; Start 11/05/16 at 06:56 ; Stop 11/05/16 at 06:57; Status DC Albuterol/ Ipratropium (Duoneb Neb) 1 ampule STK-MED ONCE .ROUTE Last administered on 11/05/16 07:11; Start 11/05/16 at 07:11; Stop 11/05/16 at 07:12; Status DC Midazolam HCl (Versed Inj) 2 mg STK-MED ONCE .ROUTE Last administered on 07:24; Start 11/05/16 at 07:23; Stop 11/05/16 at 07:24; Status DC Fentanyl Citrate (fentaNYL INJ) 1,000 mcg STK-MED ONCE .ROUTE ; Start 11/05/16 at 07:27; Stop 11/05/16 at 07:28; Status DC Cefazolin Sodium (Ancef Inj) 2,000 mg STK-MED ONCE IV Last administered on 11:00; Start 11/05/16 at 11:00; Stop 11/05/16 at 11:08; Status DC Pantoprazole Sodium (Protonix Inj) 40 mg Q24H IV PUSH Last administered on 11/18 15:40; Start 11/05/16 at 14:00; Stop 11/18/16 at 18:40; Status DC Ondansetron HCl 4 mg 4 mg Q6HR PRN IV PUSH NAUSEA Last administered on 14:20; Start 11/05/16 at 13:00 Cefazolin Sodium 1000 mg/Sodium Chloride 100 ml @ 200 mls/hr Q8H IV Last administered on 11/07/16 08:41; Start 11/05/16 at 18:00; Stop 11/07/16 at 13:29; Status DC Gentamicin Sulfate/Sodium Chloride (Gentamicin Inj/ NS Inj) 103 ml @ 100 mls/ hr Q24H IV Last administered on 11/06/16 14:41; Start 11/05/16 at 15:00; Stop at 13:29; Status DC Acetaminophen (Ofirmev Inj) 1,000 mg Q6H IV Last administered on 11/16/16 01: 55; Start 11/05/16 at 14:00; Stop 11/16/16 at 08:26; Status DC Aspirin (Ecotrin Ec) 81 mg DAILY PO ; Start 11/06/16 at 09:00; Stop 11/06/16 at 09 :00; Status DC Atorvastatin Calcium (Lipitor) 40 mg HS PO Last administered on 12/02/16 21:01 ; Start 11/05/16 at 21:00 Cetirizine HCl (ZyrTEC) 10 mg DAILY PO Last administered on 12/03/16 09:24; Start 11/06/16 at 09:00 Losartan Potassium (Cozaar) 100 mg DAILY PO Last administered on 11/19/16 09: 04; Start 11/05/16 at 17:00; Stop 11/25/16 at 13:35; Status DC Budesonide/ Formoterol Fumarate (Symbicort 160-4.5 Inh) 1 puff BID INH Last administered on 12/03/16 09:24; Start 11/05/16 at 14:00 Patient Own Medication PT OWN MED: SPIR... DAILY INH Last administered on 08:47; Start 11/05/16 at 14:00; Stop 11/22/16 at 21:26; Status DC Fentanyl Citrate (fentaNYL INJ) 250 mcg STK-MED ONCE .ROUTE ; Start 11/05/16 at 13:05; Stop 11/05/16 at 13:06; Status DC Morphine Sulfate (*morphine INJ PERIprocedure ONLY) 8 mg STK-MED ONCE .ROUTE Last administered on 11/05/16 13:15; Start 11/05/16 at 13:15; Stop 11/05/16 at 13: 16; Status DC Morphine Sulfate (*morphine INJ PERIprocedure ONLY) 8 mg STK-MED ONCE .ROUTE Last administered on 11/05/16 13:36; Start 11/05/16 at 13:36; Stop 11/05/16 at 13: 37; Status DC Morphine Sulfate (Morphine 1 Mg/ ml TRACK AND FIELD COACH) 30 mg UNSCH IV Last administered on 13:00; Start 11/05/16 at 13:45; Stop 11/07/16 at 13:29; Status DC TRACK AND FIELD COACH Dosage Infused (Pha) 1 Q8HR .XX Last administered on 11/07/16 05:41; Start 11/05/16 at 14:00; Stop 11/07/16 at 13:29; Status DC Naloxone HCl (Narcan Inj) 0.4 mg UNSCH PRN IV RESPIRATORY RATE LESS THAN 10; Start 11/05/16 at 13:45; Stop 11/07/16 at 13:29; Status DC Miscellaneous Information ALL NURSING DEPARTME... UNSCH PRN XX SEE LABEL COMMENTS; Start 11/05/16 at 12:59; Stop 11/06/16 at 12:58; Status DC Sodium Chloride (NS 1000 ml Inj) 1,000 ml @ 83 mls/hr Q12H3M IV Last administered on 11/14/16 15:05; Start 11/05/16 at 14:00; Stop 11/15/16 at 05:47 ; Status DC Morphine Sulfate (*morphine INJ PERIprocedure ONLY) 8 mg STK-MED ONCE .ROUTE Last administered on 11/05/16 13:53; Start 11/05/16 at 13:53; Stop 11/05/16 at 13: 54; Status DC Erythromycin (Erythromycin 0.5% Opth Oint) 1 gm STK-MED ONCE .ROUTE ; Start 11/05 at 17:46; Stop 11/05/16 at 17:47; Status DC Balanced Salt Solution (Bss Opth Soln) 1 application times 1... ONCE ONCE LEFT EYE ; Start 11/05/16 at 18:00; Stop 11/05/16 at 18:01; Status DC Tetracaine HCl (Pontocaine 0.5% Opht Soln) 1 application times 1... ONCE ONCE LEFT EYE ; Start 11/05/16 at 18:00; Stop 11/05/16 at 18:01; Status DC Erythromycin (Ilotycin 0.5% Opth Oint) Instill 1/ 4 inch times 1... ONCE ONCE LEFT EYE ; Start 11/05/16 at 18:00; Stop 11/05/16 at 18:01; Status DC Non-Formulary Medication TETRACAINE 0.5% OPTH SOLN ... ONCE ONCE LEFT EYE Last administered on 11/05/16 21:07; Start 11/05/16 at 18:00; Stop 11/05/16 at 18: 01; Status DC Propofol 200 mg 200 mg STK-MED ONCE IV ; Start 11/05/16 at 12:00; Stop 11/06/16 at 11:52; Status DC Lactated Ringer's 5,000 ml @ As Directed STK-MED ONCE IV ; Start 11/05/16 at 12: 00; Stop 11/06/16 at 11:52; Status DC Sodium Chloride (NS 500 ml Inj) 500 ml @ As Directed STK-MED ONCE IV ; Start at 12:00; Stop 11/06/16 at 11:52; Status DC Ephedrine Sulfate (ePHEDrine/NS 25 MG/5 ML SYR) 25 mg STK-MED ONCE IV ; Start at 12:00; Stop 11/06/16 at 11:52; Status DC Phenylephrine HCl (Neosynephrine/ NS 1000 Mcg/10ml Syr) 1,000 mcg STK-MED ONCE IV ; Start 11/05/16 at 12:00; Stop 11/06/16 at 11:52; Status DC Morphine Sulfate (Morphine Inj) 4 mg Q3H PRN IV PUSH BREAKTHROUGH PAIN Last administered on 11/23/16 04:58; Start 11/07/16 at 13:30; Stop 11/23/16 at 09:51 ; Status DC Calcium Carbonate (Tums Chew) 1,000 mg Q6H PRN CHEW HEARTBURN Last administered on 11/21/16 02:23; Start 11/09/16 at 03:00 Promethazine HCl (Phenergan Inj) 10 mg Q6H PRN IM NAUSEA Last administered on 03:48; Start 11/09/16 at 03:45; Stop 11/25/16 at 13:35; Status DC Metoclopramide HCl (Reglan Inj) 5 mg Q8HR IV PUSH Last administered on 14:39; Start 11/10/16 at 09:00; Stop 11/13/16 at 20:00; Status DC Enalaprilat (Vasotec Inj) 1.25 mg Q6H PRN IV PUSH SBP>160, DBP>90 Last administered on 11/10/16 09:29; Start 11/10/16 at 09:00 Bisacodyl (Dulcolax Supp) 10 mg ONCE ONCE RECTAL Last administered on 09:30; Start 11/10/16 at 08:45; Stop 11/10/16 at 08:46; Status DC Albuterol/ Ipratropium (Duoneb Neb) 1 ampule Q4HR NEB PRN NEB WHEEZING Last administered on 11/11/16 04:09; Start 11/10/16 at 23:00; Stop 11/11/16 at 16:00; Status DC Furosemide (Lasix Inj) 40 mg ONCE ONCE IV PUSH Last administered on 11/11/16 13:13; Start 11/11/16 at 13:00; Stop 11/11/16 at 13:01; Status DC Furosemide (Lasix Inj) 20 mg ONCE ONCE IV PUSH ; Start 11/11/16 at 19:00; Stop 11/11/16 at 19:00; Status DC Albuterol/ Ipratropium (Duoneb Neb) 1 ampule Q4HR WHILE AWAKE NEB NEB Last administered on 11/12/16 11:04; Start 11/11/16 at 16:00; Stop 11/12/16 at 11:37; Status DC Methylprednisolone Sodium Succinate 40 mg 40 mg Q6HR IV PUSH ; Start 11/11/16 at 18:00; Stop 11/11/16 at 18:00; Status DC Levofloxacin/ Dextrose (Levaquin 750 Mg Premix Inj) 150 ml @ 100 mls/hr Q24H IV Last administered on 11/18/16 17:35; Start 11/11/16 at 18:00; Stop 11/18/16 at 18:40; Status DC Furosemide (Lasix Inj) 40 mg ONCE ONCE IV PUSH Last administered on 11/11/16 17:26; Start 11/11/16 at 17:30; Stop 11/11/16 at 17:31; Status DC Diltiazem HCl 20 mg 20 mg ONCE ONCE IVP Last administered on 11/11/16 20:23; Start 11/11/16 at 19:00; Stop 11/11/16 at 19:05; Status DC Diltiazem HCl/ Sodium Chloride (Cardizem Inj/NS Inj) 125 ml @ 0 mls/hr TITRATE IV Last administered on 11/18/16 17:37; Start 11/11/16 at 19:00; Stop 11/20/16 at 16:24; Status DC Diltiazem HCl (Cardizem Inj) 10 mg ONCE ONCE IV Last administered on 11/12/16 02:00; Start 11/12/16 at 02:00; Stop 11/12/16 at 02:01; Status DC Digoxin (Lanoxin Inj) 0.5 mg ONCE ONCE IV PUSH Last administered on 11/12/16 03:42; Start 11/12/16 at 03:30; Stop 11/12/16 at 03:32; Status DC Atropine Sulfate (Atropine Inj) 1 mg STK-MED ONCE .ROUTE ; Start 11/12/16 at 03: 48; Stop 11/12/16 at 03:49; Status DC Lidocaine HCl (Xylocaine 2% Inj) 100 mg STK-MED ONCE .ROUTE ; Start 11/12/16 at 03:48; Stop 11/12/16 at 03:49; Status DC Epinephrine HCl (EPINEPHrine (1:10,000) INJ) 1 mg STK-MED ONCE .ROUTE ; Start at 03:48; Stop 11/12/16 at 03:49; Status DC Lidocaine HCl (Xylocaine 2% Inj) 100 mg STK-MED ONCE .ROUTE ; Start 11/12/16 at 03:50; Stop 11/12/16 at 03:51; Status DC Epinephrine HCl (EPINEPHrine (1:10,000) INJ) 1 mg STK-MED ONCE .ROUTE ; Start at 03:50; Stop 11/12/16 at 03:51; Status DC Iohexol (Omnipaque 350 Inj) 70 ml STK-MED ONCE IV Last administered on 04:14; Start 11/12/16 at 04:14; Stop 11/12/16 at 04:15; Status DC Diltiazem HCl 15 mg 15 mg ONCE ONCE IV ; Start 11/12/16 at 05:15; Stop 11/12/16 at 05:16; Status DC Amiodarone HCl 150 mg/Dextrose 100 ml @ 600 mls/hr ONCE ONCE IV Last administered on 11/12/16 05:41; Start 11/12/16 at 05:15; Stop 11/12/16 at 05:24; Status DC Amiodarone HCl/ Dextrose (Cordarone Inj/ D5W (Clare) Inj) 250 ml @ 0 mls/hr CONTINUOUS IV Last administered on 11/15/16 01:24; Start 11/12/16 at 05:15; Stop 11/15/16 at 15:56; Status DC Heparin Sodium (Porcine) (Heparin Inj) 5,000 units Q12HR SQ ; Start 11/12/16 at 10:00; Stop 11/12/16 at 15:01; Status DC Furosemide (Lasix Inj) 40 mg BID@09,18 IV PUSH Last administered on 11/20/16 08:38; Start 11/12/16 at 18:00; Stop 11/21/16 at 17:25; Status DC Levalbuterol HCl 1.25 mg 1.25 mg Q6HR NEB NEB Last administered on 11/22/16 09:57; Start 11/12/16 at 11:38; Stop 11/22/16 at 10:55; Status DC Heparin Sodium/ Dextrose (Heparin-D5W Inj) 250 ml @ 0 mls/hr TITRATE IV Last administered on 11/22/16 23:09; Start 11/12/16 at 15:15; Stop 11/23/16 at 09:29 ; Status DC Heparin Sodium (Porcine) (Heparin Inj) 5,000 units UNSCH PRN IV aPTT less than 25; Start 11/12/16 at 15:15; Stop 11/23/16 at 09:30; Status DC Heparin Sodium (Porcine) (Heparin Inj) 2,500 units UNSCH PRN IV aPTT 25 to 39 Last administered on 11/17/16 08:27; Start 11/12/16 at 15:15; Stop 11/23/16 at 09:30; Status DC Heparin Sodium (Porcine) (Heparin Inj) 4,000 units ONCE ONCE IV Last administered on 11/12/16 16:40; Start 11/12/16 at 17:00; Stop 11/12/16 at 17:01; Status DC Diatrizoate Meglum/ Diatrizoate Sod ( Gastroview Liq) 18 ml ONCE ONCE PO Last administered on 11/13/16 15:03; Start 11/13/16 at 14:30; Stop 11/13/16 at 14: 31; Status DC Insulin Aspart 1 1 ACHS SLIDING SCALE SQ Last administered on 11/19/16 12:29 ; Start 11/13/16 at 21:00; Stop 11/19/16 at 14:14; Status DC Potassium Chloride (KCl 20 Meq Premix Inj) 100 ml @ 50 mls/hr ONCE ONCE IV Last administered on 11/13/16 21:53; Start 11/13/16 at 21:00; Stop 11/13/16 at 22: 59; Status DC Dextrose (D50w (Vial) Inj) 25 ml UNSCH PRN IV PUSH HYPOGLYCEMIA - SEE COMMENTS ; Start 11/13/16 at 20:30; Stop 11/25/16 at 13:39; Status DC Glucagon (Glucagon Inj) 1 mg UNSCH PRN OTHER HYPOGLYCEMIA-SEE COMMENTS; Start 11/13/16 at 20:30; Stop 11/25/16 at 13:39; Status DC IV Flush (NS Flush) DAILY IVF Last administered on 12/01/16 08:39; Start 08/21 at 09:00 IV Flush UNSCH PRN IVF SEE PROTOCOL; Start 11/14/16 at 16:45 Potassium Chloride (KCl 10 Meq Premix Inj) 100 ml @ 100 mls/hr Q1H IV Last administered on 11/14/16 22:00; Start 11/14/16 at 20:00; Stop 11/14/16 at 22:59 ; Status DC Mupirocin 1 applic 1 applic BID EACH NARE Last administered on 11/21/16 08:06 ; Start 11/14/16 at 21:00; Stop 11/21/16 at 20:59; Status DC Multivitamins 10 ml/Folic Acid 1 mg/Amino Acids/ Electrolytes/ Dextrose 2,010.2 ml @ 75 mls/hr Q24H IV-CENTRAL Last administered on 11/15/16 22:33; Start 07/21 at 20:00; Stop 11/16/16 at 11:30; Status DC Fat Emulsion Intravenous 250 ml @ 31.25 mls/ hr SuWe@20 IV-CENTRAL Last administered on 11/16/16 23:49; Start 11/16/16 at 20:00; Stop 11/17/16 at 13:12 ; Status DC Potassium Chloride (KCl 20 Meq Premix Inj) 100 ml @ 50 mls/hr Q2H IV Last administered on 11/15/16 12:00; Start 11/15/16 at 10:00; Stop 11/15/16 at 13:59 ; Status DC Benzocaine/ Menthol 1 lozenge 1 lozenge Q2H PRN BUCCAL DRY MOUTH Last administered on 11/23/16 04:58; Start 11/15/16 at 09:45 Potassium Chloride (KCl 10 Meq Premix Inj) 100 ml @ 100 mls/hr Q1H IV Last administered on 11/16/16 12:37; Start 11/16/16 at 08:45; Stop 11/16/16 at 11:44 ; Status DC Insulin Human NPH (NovoLIN N INJ) 5 units ONCE ONCE SQ Last administered on 09:37; Start 11/16/16 at 08:45; Stop 11/16/16 at 08:46; Status DC Acetaminophen 325 mg 325 mg Q4H PRN RECTAL HEADACHE, TEMPERATURE > 101; Start 11/16/16 at 08:30 Sodium Chloride/ Sodium Acetate/ Potassium Chloride/Sodium Phosphate/ Magnesium Chloride/Calcium Chloride/ Multivitamins/ Folic Acid/ Insulin Human Regular/ Amino Acids/Dextrose (Sodium Chloride 23.4% Inj/Sodium Acetate Inj/KCl Inj/ Sodium Phosphate Inj/ Magnes... 2,104.2437 ml @ 75 mls/hr Q24H IV-CENTRAL Last administered on 11/16/16 23:41; Start 11/16/16 at 20:00; Stop 11/17/16 at 13:12 ; Status DC Acetaminophen 1000 mg 1,000 mg ONCE ONCE IV Last administered on 11/16/16 23: 47; Start 11/16/16 at 21:15; Stop 11/16/16 at 21:16; Status DC Potassium Chloride 100 ml @ 50 mls/hr Q12HR IV Last administered on 11/18/16 09:36; Start 11/17/16 at 21:00; Stop 11/18/16 at 18:40; Status DC Potassium Chloride 100 ml @ 50 mls/hr Q2H IV Last administered on 11/17/16 10 :12; Start 11/17/16 at 07:30; Stop 11/17/16 at 11:29; Status DC Sodium Chloride 80 meq/Potassium Chloride 80 meq/ Sodium Phosphate 40 meq/ Magnesium Chloride 10 meq/ Calcium Chloride 9 meq/ Multivitamins 10 ml/Folic Acid 1 mg/Insulin Human Regular 20 units/ Amino Acids/ Dextrose 2,092.0937 ml @ 75 mls/hr Q24H IV-CENTRAL ; Start 11/17/16 at 20:00; Stop 11/18/16 at 19:29; Status DC Fat Emulsion Intravenous 250 ml @ 31.25 mls/ hr SuWe@20 IV-CENTRAL ; Start at 20:00; Stop 11/19/16 at 20:00; Status DC Sodium Chloride 80 meq/Potassium Chloride 80 meq/ Sodium Phosphate 60 meq/ Magnesium Chloride 10 meq/ Calcium Chloride 9 meq/ Multivitamins 10 ml/Folic Acid 1 mg/Insulin Human Regular 20 units/ Amino Acids/ Dextrose 2,097.0937 ml @ 75 mls/hr Q24H IV-CENTRAL Last administered on 11/18/16 23:19; Start 11/18/16 at 20:00; Stop 11/19/16 at 09:00; Status DC Fat Emulsion Intravenous (Liposyn Iii 20% Inj) 250 ml @ 31.25 mls/ hr SuWe@20 IV-CENTRAL Last administered on 11/19/16 21:25; Start 11/19/16 at 20:00; Stop 11/23/16 at 21:24; Status DC Pantoprazole Sodium (Protonix) 40 mg DAILY PO Last administered on 12/03/16 09: 24; Start 11/19/16 at 09:00 Diltiazem HCl (Cardizem) 30 mg QID PO Last administered on 11/25/16 19:33; Start 11/18/16 at 21:00; Stop 11/26/16 at 06:00; Status DC Potassium Chloride 20 meq 20 meq Q12HR PO Last administered on 11/20/16 20:15 ; Start 11/18/16 at 21:00; Stop 11/21/16 at 06:00; Status DC Sodium Chloride 80 meq/Potassium Chloride 80 meq/ Sodium Phosphate 40 meq/ Magnesium Chloride 10 meq/ Calcium Chloride 9 meq/ Multivitamins 10 ml/Folic Acid 1 mg/Insulin Human Regular 25 units/ Amino Acids/ Dextrose 2,092.1437 ml @ 75 mls/hr Q24H IV-CENTRAL ; Start 11/18/16 at 19:29; Stop 11/18/16 at 19:31; Status DC Sodium Chloride 80 meq/Potassium Chloride 80 meq/ Sodium Phosphate 40 meq/ Magnesium Chloride 10 meq/ Calcium Chloride 9 meq/ Multivitamins 10 ml/Folic Acid 1 mg/Insulin Human Regular 25 units/ Amino Acids/ Dextrose 2,092.1437 ml @ 75 mls/hr Q24H IV-CENTRAL ; Start 11/19/16 at 20:00; Stop 11/19/16 at 20:00; Status DC Piperacillin Sod/ Tazobactam Sod (Zosyn 4.5 Gm Premix) 100 ml @ 200 mls/hr Q6H IV Last administered on 11/21/16 08:06; Start 11/19/16 at 14:00; Stop at 12:58; Status DC Insulin Aspart 1 1 ACHS SLIDING SCALE SQ Last administered on 11/23/16 06:23 ; Start 11/19/16 at 16:00; Stop 11/23/16 at 14:58; Status DC Sodium Chloride/ Potassium Chloride/Sodium Phosphate/ Magnesium Chloride/ Calcium Chloride/ Multivitamins/ Folic Acid/ Insulin Human Regular/Amino Acids/ Dextrose (Sodium Chloride 23.4% Inj/KCl Inj/ Sodium Phosphate Inj/Magnesium Chloride Inj/ Calcium Chloride Inj/Mvi-12 I... 2,092.2137 ml @ 75 mls/hr Q24H IV -CENTRAL Last administered on 11/19/16 20:50; Start 11/19/16 at 20:00; Stop at 20:00; Status DC Albuterol Sulfate (Albuterol Neb) 0.63 mg Q4HR NEB PRN NEB sob; Start 11/20/16 at 07:30 Insulin Detemir 10 units 10 units NOW ONCE SQ Last administered on 11/20/16 08:39; Start 11/20/16 at 07:45; Stop 11/20/16 at 07:53; Status DC Sodium Chloride 80 meq/Potassium Chloride 80 meq/ Sodium Phosphate 40 meq/ Magnesium Chloride 10 meq/ Calcium Chloride 9 meq/ Multivitamins 10 ml/Folic Acid 1 mg/Insulin Human Regular 40 units/ Amino Acids/ Dextrose 2,092.2937 ml @ 75 mls/hr Q24H IV-CENTRAL Last administered on 11/20/16 22:58; Start 11/20/16 at 20:00; Stop 11/21/16 at 06:03; Status DC Diltiazem HCl/ Sodium Chloride (Cardizem Inj/NS Inj) 125 ml @ 0 mls/hr TITRATE PRN IV RVR > 120 for 20 mins; Start 11/20/16 at 16:30; Stop 11/23/16 at 09:30; Status DC Insulin Detemir 12 units 12 units NOW ONCE SQ ; Start 11/21/16 at 06:00; Stop 11/21/16 at 06:04; Status DC Sodium Chloride 80 meq/Potassium Chloride 40 meq/ Sodium Phosphate 40 meq/ Magnesium Chloride 10 meq/ Calcium Chloride 9 meq/ Multivitamins 10 ml/Folic Acid 1 mg/Insulin Human Regular 40 units/ Amino Acids/ Dextrose 2,072.2937 ml @ 75 mls/hr Q24H IV-CENTRAL ; Start 11/21/16 at 06:15; Stop 11/21/16 at 06:38; Status DC Sodium Chloride/ Potassium Chloride/Sodium Phosphate/ Magnesium Chloride/ Calcium Chloride/ Multivitamins/ Folic Acid/ Insulin Human Regular/Amino Acids/ Dextrose (Sodium Chloride 23.4% Inj/KCl Inj/ Sodium Phosphate Inj/Magnesium Chloride Inj/ Calcium Chloride Inj/Mvi-12 I... 2,072.2937 ml @ 75 mls/hr Q24H IV -CENTRAL Last administered on 11/21/16 20:24; Start 11/21/16 at 20:00; Stop at 09:38; Status DC Diphenhydramine HCl (Benadryl) 25 mg HS PRN PO insomnia Last administered on 23:37; Start 11/21/16 at 10:30 Furosemide (Lasix Inj) 10 mg BID@,18 IV PUSH Last administered on 11/23/16 09:25; Start 11/21/16 at 18:00; Stop 11/23/16 at 09:30; Status DC Insulin Detemir 10 units 10 units NOW ONCE SQ Last administered on 11/22/16 09:53; Start 11/22/16 at 09:00; Stop 11/22/16 at 09:09; Status DC Sodium Chloride/ Potassium Chloride/Sodium Phosphate/ Magnesium Chloride/ Calcium Chloride/ Multivitamins/ Folic Acid/ Insulin Human Regular/Amino Acids/ Dextrose (Sodium Chloride 23.4% Inj/KCl Inj/ Sodium Phosphate Inj/Magnesium Chloride Inj/ Calcium Chloride Inj/Mvi-12 I... 2,062.2937 ml @ 75 mls/hr Q24H IV -CENTRAL ; Start 11/22/16 at 20:00; Stop 11/22/16 at 20:00; Status DC Albuterol/ Ipratropium 1 ampule 1 ampule QID NEB NEB Last administered on 11/29 11:42; Start 11/22/16 at 12:00; Stop 11/29/16 at 13:35; Status DC Sodium Chloride/ Potassium Chloride/Sodium Phosphate/ Magnesium Chloride/ Calcium Chloride/ Multivitamins/ Folic Acid/ Insulin Human Regular/Amino Acids/ Dextrose (Sodium Chloride 23.4% Inj/KCl Inj/ Sodium Phosphate Inj/Magnesium Chloride Inj/ Calcium Chloride Inj/Mvi-12 I... 1,036.2469 ml @ 40 mls/hr Q24H IV -CENTRAL Last administered on 11/22/16 20:12; Start 11/22/16 at 20:00; Stop at 21:24; Status DC Alteplase, Recombinant (Cathflo Activase Inj) 6 mg UNSCH X1 IV FLUSH Last administered on 11/22/16 18:01; Start 11/22/16 at 17:15; Stop 11/22/16 at 21:00 ; Status DC Patient Own Medication PT OWN MED: SPIR... DAILY INH Last administered on 09:26; Start 11/23/16 at 09:00 Apixaban (Eliquis) 5 mg BID PO Last administered on 12/03/16 09:23; Start 11/23 at 10:00 Furosemide (Lasix) 20 mg BID@09,18 PO Last administered on 12/03/16 09:23; Start 11/23/16 at 18:00 Oxycodone/ Acetaminophen 2 tab 2 tab Q6H PRN PO PAIN SCALE 6 TO 10 Last administered on 12/02/16 23:37; Start 11/23/16 at 10:00 Cefazolin Sodium/ Sodium Chloride (Ancef Inj/NS Inj) 100 ml @ 200 mls/hr Q8H IV Last administered on 11/25/16 11:00; Start 11/23/16 at 11:00; Stop at 13:41; Status DC Insulin Aspart (NovoLOG SUPPLEMENTAL SCALE) 1 ACHS SLIDING SCALE SQ Last administered on 11/25/16 11:00; Start 11/23/16 at 16:00; Stop 11/25/16 at 13:39 ; Status DC Diltiazem HCl (Cardizem Cd) 120 mg DAILY PO Last administered on 12/03/16 09:23 ; Start 11/26/16 at 09:00 Insulin Aspart (NovoLOG SUPPLEMENTAL SCALE) 1 ACHS SLIDING SCALE SQ Last administered on 11/26/16 06:19; Start 11/25/16 at 16:00; Stop 11/26/16 at 09:10 ; Status DC Amoxicillin/ Clavulanate Potassium 875 mg 875 mg Q12HR PO Last administered on 12/02/16 08:36; Start 11/25/16 at 21:00; Stop 12/02/16 at 20:59; Status DC Multivitamins 10 ml/Folic Acid 1 mg/Amino Acids/ Electrolytes/ Dextrose 2,010.2 ml @ 75 mls/hr Q24H IV-CENTRAL Last administered on 11/25/16 19:31; Start at 20:00; Stop 11/26/16 at 14:15; Status DC Fat Emulsion Intravenous (Liposyn Iii 20% Inj) 250 ml @ 31.25 mls/ hr SuWe@20 IV-CENTRAL Last administered on 11/30/16 21:51; Start 11/26/16 at 20:00 Insulin Aspart (NovoLOG SUPPLEMENTAL SCALE) 1 ACHS SLIDING SCALE SQ Last administered on 12/03/16 05:20; Start 11/26/16 at 11:00 Dextrose (D50w (Vial) Inj) 25 ml UNSCH PRN IV PUSH HYPOGLYCEMIA-SEE COMMENTS; Start 11/26/16 at 09:15 Glucagon 1 mg 1 mg UNSCH PRN OTHER HYPOGLYCEMIA-SEE COMMENTS; Start 11/26/16 at 09:15 Multivitamins/ Folic Acid/ Insulin Human Regular/Amino Acids/ Electrolytes/ Dextrose (Mvi-12 Inj/ Folvite Inj/ NovoLIN R INJ/ Clinimix E 02/26) 2,010.6 ml @ 75 mls/hr Q24H IV-CENTRAL Last administered on 12/02/16 21:02; Start at 20:00 A/P Problem List: (1) Acute exacerbation of chronic obstructive pulmonary disease (COPD) ICD Code: J44.1 Status: Acute (2) Bladder cancer ICD Code: C67.9 Status: Acute (3) HTN (hypertension) ICD Code: I10 Status: Acute (4) Atrial flutter ICD Code: I48.92 Status: Acute Assessment and Plan A/P Bladder cancer - status post radical cystoscopy prostatectomy, post ileal conduit. -urologist is ff and stated will need definitive surgery in 6-8 weeks. -tolerating full liquids and on TPN. Acute exacerbation of COPD -resolved, continue oxygen support, status post Levaquin. Continue bronchodilators. ileus vs Partial small bowel obstruction. -Improved. -tolerating full liquids and on TPN. Enterocutaneous fistula -Tolerating diet. Continue wound care. Maximize nutrition with by mouth and TPN. -due to complexity of wound surgery and urologist recommend to stay in hospital. Atrial flutter with RVR -stable, - FVB9CVtrlc score 2 (Age, Hx of HTN). -Continue oral Cardizem and apixaban. Hypertension -Patient apparently takes Micardis at home. He isn't orthostatic secondary to anemia and BP meds. Anemia secondary to acute blood loss. - Status post transfusion with appropriate response monitor CBC. Leukocytosis. - Patient no fever but has some erythema around the abdominal wound. -completed Augmentin. Fluid overload -Continue Lasix Hyperkalemia -resolved Hyponatremia -could be from hypervolemia on Lasix. - Asymptomatic Hyperglycemia secondary to TPN -hx borderline DM. -Follow-up A1c is 6.4. on 40 units units regular insulin per TPN bag and ct high dose sliding scale,continue insulin dose per glycemic trends. Hypoglycemic protocol. Deconditioning. -PT working with patient. DVT prophylaxis eliquis Discharge Planning d/w with surgery and they stated they want patient to stay him until they see better improvement with wound healing which may take weeks. Patricia Perez MD Dec 03, 2016 10:25
[2016-12-03] MEDS: SODIUM CHLORIDE 0.9% FLUSH 5 ML FLUSH IVF SCH (11:42)
[2016-12-03] MEDS: ATORVASTATIN 40 MG TAB PO SCH (20:19)
[2016-12-03] MEDS: MULTIVITAMIN INJ 10 ML, FOLIC ACID INJ 1 MG, INSULIN HUMAN REGULAR INJ 40 UNITS in AMIN... IV-CENTRAL SCH (20:20)
[2016-12-03] MEDS: FAT EMULSION 20% INJ 250 ML (Twice weekly over 8 hours) IV-CENTRAL SCH (20:20)
[2016-12-03] MEDS: diphenhydrAMINE HCL 25 MG CAP PO PRN (23:27)
[2016-12-04] VITALS: BP 124/61; PULSE 61; RESP 17; TEMP 96.2; O2SAT 97
[2016-12-04] MEDS: oxyCODONE/ACETAMINOPHEN 5 MG/325 MG TAB PO PRN ×2 (00:42→10:18)
[2016-12-04] MEDS: INSULIN ASPART SUPPLEMENTAL SCALE SQ SCH ×4 (06:15→23:05)
[2016-12-04 08:00] VITALS: BP 141/72; PULSE 67; RESP 17; TEMP 97.8; O2SAT 98
[2016-12-04] MEDS: APIXABAN 5 MG TABLET PO SCH ×2 (08:57→22:48)
[2016-12-04] MEDS: FUROSEMIDE 20 MG TAB PO SCH ×2 (08:57→17:21)
[2016-12-04] MEDS: CETIRIZINE HCL 10 MG TAB PO SCH (08:57)
[2016-12-04] MEDS: DILTIAZEM-CD 120 MG CAP ER PO SCH (08:57)
[2016-12-04] MEDS: PANTOPRAZOLE SOD 40 MG DELAYED RELEASE TAB PO SCH (08:57)
[2016-12-04] MEDS: SODIUM CHLORIDE 0.9% FLUSH 5 ML FLUSH IVF SCH (08:58)
[2016-12-04] MEDS: BUDESONIDE-FORMOTEROL 160/4.5 MCG INHALER INH SCH ×3 (08:58→23:04)
[2016-12-04] MEDS: SPIRIVA RESPIMAT INH SCH (08:58)
--- NOTE | 2016-12-04 11:28 | HHI.PR ---
Subjective Remarks Follow-up surgical wound, COPD. He states that his dressing was changed today. States that he overall feels "pretty good". Pain is well controlled. Denies nausea, vomiting, cough, dyspnea, chest pain. Objective Vitals Vital Signs Date Time Temp Pulse Resp B/P Pulse Ox O2 Delivery O2 Flow Rate FiO2 12/04/16 08:00 97.8 67 17 141/72 98 12/04/16 00:00 96.2 61 17 124/61 97 12/03/16 20:17 75 12/03/16 20:00 96.6 63 17 137/64 96 12/03/16 16:00 98.6 84 17 115/48 96 12/03/16 12:00 95.4 91 22 113/63 93 I/O 12/03/16 12/03/16 12/03/16 12/04/16 12/04/16 12/04/16 07:00 15:00 23:00 07:00 15:00 23:00 Intake Total 0 ml 4609 ml 608 ml 1083 ml 120 ml Output Total 3000 ml 1000 ml 800 ml Balance 0 ml 1609 ml -392 ml 283 ml 120 ml Intake Oral 0 ml 600 ml 240 ml 120 ml IV Total 4009 ml TPN/PPN 608 ml 593 ml Lipid 250 ml Drainage Total 3000 ml 1000 ml 800 ml Result Diagram: 12/01/16 0545 12/01/16 0545 Imaging Last Impressions Chest X-Ray 11/19/16 0000 Signed Impressions: Service Date/Time: Saturday, November 19, 2016 13:34 - CONCLUSION: 1. No placement of right central venous line with no evidence of pneumothorax. 2. Interval placement of nasogastric tube. 3. Patchy opacity remains at the lung bases. Orion Aguilera MD Abdomen/Pelvis CT 11/19/16 0000 Signed Impressions: Service Date/Time: Saturday, November 19, 2016 20:12 - CONCLUSION: 1. Status post cystectomy with an ileal loop in the right lower quadrant. Ureteral stents are seen through the ileal loop bilaterally. No hydronephrosis is seen. 2. 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 This appearance is completely unchanged. There is an adjacent segment of small bowel herniating through this region. This is also unchanged from the prior exam. 3. Bibasilar areas of consolidation or atelectasis. 4. Status post cystectomy and suspected prostatectomy. 5. Evidence of prior granulomatous exposure. Harris Yusuf MD Central Venous Line 11/14/16 0000 Signed Impressions: Service Date/Time: Monday, November 14, 2016 16:07 - CONCLUSION: Uncomplicated line placement as above. Mando Rodriguez MD CT Angiography 11/12/16 0000 Signed Impressions: Service Date/Time: Saturday, November 12, 2016 04:09 - CONCLUSION: 1. No evidence for pulmonary embolism. 2. Abnormal patchy areas of pulmonary consolidation are noted as described above. Small pleural effusions. 3. Emphysema. Timmy Jacobson MD Lower Extremity Ultrasound 11/11/16 0000 Signed Impressions: Service Date/Time: Friday, November 11, 2016 10:03 - CONCLUSION: Negative exam with no evidence of deep venous thrombosis. Orion Aguilera MD Abdomen X-Ray 11/11/16 0000 Signed Impressions: Service Date/Time: Friday, November 11, 2016 17:02 - CONCLUSION: 1. Air distention of small bowel loops in the left upper abdominal quadrant with decompression of the visualized portions of the colon. Pattern is concerning for possible early small bowel obstruction versus focal hypodynamic ileus. This study will serve as a baseline for followup imaging. 2. Postsurgical changes characteristic of ileal conduit with bilateral double-J stents terminating in the right lower abdominal quadrant. Mando Rodriguez MD Objective Remarks General: No acute distress. Heart: Regular rate and rhythm. No murmur. Lungs: Clear to auscultation bilaterally. No wheezes, rales, or rhonchi. Breathing is nonlabored. Abdomen: Soft, ostomy bag in place. Extremities: No lower extremity edema. Psych: Alert and oriented. Procedures 11/05/2016 Symptomatic large supraumbilical hernia. Bladder cancer requiring radical cystectomy. 11/08/2016 1. Radical cystoprostatectomy with ileal conduit. 2. Bilateral pelvic lymph node dissection. Right IJ central line Urinary Catheter: No Vascular Central Line Catheter: No A/P Problem List: (1) Acute exacerbation of chronic obstructive pulmonary disease (COPD) ICD Code: J44.1 Status: Resolved (2) Bladder cancer ICD Code: C67.9 Status: Chronic (3) HTN (hypertension) ICD Code: I10 Status: Chronic (4) Atrial flutter ICD Code: I48.92 Status: Chronic Assessment and Plan 1. Bladder cancer: Status post radical cystoprostatectomy with ileal conduit. Patient developed postoperative ileus, enterocutaneous fistula. Appreciate general surgery and urology recommendations. Will likely need definitive surgical repair in 6-8 weeks. Surgery and urology are recommending that the patient remain inpatient secondary to the complexity of his wounds, fistula. 2. Ileus versus partial small bowel obstruction: Improved. Tolerating full liquids. Continue TPN. 3. Acute exacerbation of COPD: Resolved. Continue supplemental oxygen. Status post treatment with Levaquin. Continue bronchodilators. 4. Enterocutaneous fistula: Continue wound care. 5. Atrial flutter with RVR: Stable. Continue oral Cardizem, apixaban. 6. Hypertension: Continue Cardizem, Lasix. 7. Anemia secondary to acute blood loss: Status post transfusion. Hemoglobin improved. 8. Leukocytosis: Monitor labs. Completed course of Augmentin. 9. Fluid overload: Continue Lasix. 10. Hyperkalemia: Resolved. 11. Mild hyponatremia: Asymptomatic. 12. Hyperglycemia secondary to TPN: Patient has history of borderline diabetes. A1c is 6.4. Continue regular insulin. Continue sliding scale insulin coverage. 13. Deconditioning: Continue physical therapy. 14. DVT prophylaxis: Eliquis. Discharge Planning Per general surgery and urology, patient to remain inpatient until wound healing has progressed, which may take weeks due to the complexity of the wound. Doug Baltazar MD Dec 04, 2016 11:28
[2016-12-04 12:00] VITALS: BP 138/64; PULSE 74; RESP 19; TEMP 98.2; O2SAT 96
[2016-12-04 12:51] VITALS: O2SAT 96
[2016-12-04 18:00] VITALS: BP 128/78; PULSE 72; RESP 19; TEMP 97.2; O2SAT 97
[2016-12-04 20:00] VITALS: BP 127/60; PULSE 71; PULSE 72; RESP 22; TEMP 96.1; O2SAT 97
[2016-12-04] MEDS: ATORVASTATIN 40 MG TAB PO SCH (22:48)
[2016-12-04] MEDS: MULTIVITAMIN INJ 10 ML, FOLIC ACID INJ 1 MG, INSULIN HUMAN REGULAR INJ 40 UNITS in AMIN... IV-CENTRAL SCH (23:04)
[2016-12-05] VITALS (7 sets, daily range): BP systolic 119–146; BP diastolic 56–63; PULSE 72–85; RESP 17–22; TEMP 97.2–98.9; O2SAT 95–98
[2016-12-05] MEDS: INSULIN ASPART SUPPLEMENTAL SCALE SQ SCH ×4 (05:46→22:40)
[2016-12-05 07:03] LABS: AUTOMATED NEUTROPHIL # 7.3 TH/MM3 (1.8-7.7); BASOPHIL # 0.1 TH/MM3 (0-0.2); BASOPHIL % 0.5 % (0.0-2.0); EOSINOPHIL # 0.4 TH/MM3 (0-0.4); EOSINOPHIL % 4.2 % (0.0-4.0); HEMATOCRIT 26.4 % (39.0-51.0); LYMPH % 16.9 % (9.0-44.0); LYMPHOCYTE # 1.8 TH/MM3 (1.0-4.8); MEAN CELL VOLUME 89.3 FL (80.0-100.0); MEAN CORPUSCULAR HEMOGLOBIN 29.9 PG (27.0-34.0); MEAN CORPUSCULAR HGB CONC 33.5 % (32.0-36.0); NEUT % 70.4 % (16.0-70.0); PLATELET COUNT 276 TH/MM3 (150-450); RED BLOOD COUNT 2.95 MIL/MM3 (4.50-5.90); RED CELL DISTRIBUTION WIDTH 14.9 % (11.6-17.2); WHITE BLOOD COUNT 10.4 TH/MM3 (4.0-11.0)
[2016-12-05 07:17] LABS: BICARBONATE 28.2 MEQ/L (21.0-32.0); POTASSIUM 4.2 MEQ/L (3.5-5.1)
[2016-12-05 07:30] LABS: HEMO FLAGS AUTO DIFF
[2016-12-05 08:03] LABS: BANDS 4 % (0-6); MYELOCYTES 3 % (0-0); NEUTROPHIL # MANUAL DIFF 8.2 TH/MM3 (1.8-7.7); PLATELET ESTIMATE SMEAR NORMAL (NORMAL); PLATELET MORPHOLOGY NORMAL (NORMAL); POLYS (SEG NEUTROPHILS) 72 % (16-70); WBC DIFF SAMPLE 100
[2016-12-05 08:04] LABS: SCAN/DIFF FINAL DIFF MANUAL
[2016-12-05] MEDS: PANTOPRAZOLE SOD 40 MG DELAYED RELEASE TAB PO SCH ×2 (08:07→22:24)
[2016-12-05] MEDS: FUROSEMIDE 20 MG TAB PO SCH ×2 (08:07→16:49)
[2016-12-05] MEDS: APIXABAN 5 MG TABLET PO SCH ×2 (08:08→22:24)
[2016-12-05] MEDS: oxyCODONE/ACETAMINOPHEN 5 MG/325 MG TAB PO PRN (08:08)
[2016-12-05] MEDS: CETIRIZINE HCL 10 MG TAB PO SCH (08:08)
[2016-12-05] MEDS: DILTIAZEM-CD 120 MG CAP ER PO SCH (08:08)
[2016-12-05] MEDS: BUDESONIDE-FORMOTEROL 160/4.5 MCG INHALER INH SCH ×2 (08:09→22:40)
[2016-12-05] MEDS: SPIRIVA RESPIMAT INH SCH (08:09)
[2016-12-05] MEDS: SODIUM CHLORIDE 0.9% FLUSH 5 ML FLUSH IVF SCH (08:10)
--- NOTE | 2016-12-05 11:29 | HHI.PR ---
Subjective Subjective Notes Sitting up in bed eating breakfast Reports several leaks overnight from abdominal appliance Objective Vitals/I&O Vital Signs Date Time Temp Pulse Resp B/P Pulse Ox O2 Delivery O2 Flow Rate FiO2 12/05/16 08:00 98.9 73 18 130/62 97 12/05/16 08:00 Nasal Cannula 2.00 21 Labs Laboratory Tests Test 12/05/16 06:00 White Blood Count 10.4 Red Blood Count 2.95 Hemoglobin 8.8 Hematocrit 26.4 Mean Corpuscular Volume 89.3 Mean Corpuscular Hemoglobin 29.9 Mean Corpuscular Hemoglobin 33.5 Concent Red Cell Distribution Width 14.9 Platelet Count 276 Mean Platelet Volume 7.7 Neutrophils (%) (Auto) 70.4 Lymphocytes (%) (Auto) 16.9 Monocytes (%) (Auto) 8.0 Eosinophils (%) (Auto) 4.2 Basophils (%) (Auto) 0.5 Neutrophils # (Auto) 7.3 Lymphocytes # (Auto) 1.8 Monocytes # (Auto) 0.8 Eosinophils # (Auto) 0.4 Basophils # (Auto) 0.1 CBC Comment AUTO DIFF Differential Total Cells 100 Counted Neutrophils % (Manual) 72 Band Neutrophils % 4 Lymphocytes % 15 Monocytes % 6 Neutrophils # (Manual) 8.2 Myelocytes 3 Differential Comment FINAL DIFF MANUAL Platelet Estimate NORMAL Platelet Morphology Comment NORMAL Sodium Level 131 Potassium Level 4.2 Chloride Level 95 Carbon Dioxide Level 28.2 Anion Gap 8 Blood Urea Nitrogen 26 Creatinine 0.82 Estimat Glomerular Filtration 92 Rate Random Glucose 135 Calcium Level 8.0 Cardiovascular: Regular Lungs: Clear Abdomen: Other (see below ) Extremities: No edema Narrative Exam Abd: urostomy in place with drainage bag---stoma dark; large midline fistula x2 with stool output; 1 smaller fistula with no output A/P Assessment and Plan 70 year old male s/p radical cystectomy and ileo conduit (by Urology); s/p UHR ( by General Surgery) -Continue wound management bag for wound drainage and connect to wound draining bag; Appreciate Wound Care team---Replace appliance today -on Fulls + Ensure -TPN -Encourage mobilization ---OOB daily and ambulate in room and hallway -Spoke with Dr. Monreal last week ---patient should remain in the acute hospital setting for now due to complexity of wounds I CERTIFY AND ATTEST THAT I PERSONALLY EXAMINED THIS PATIENT. LUZ MARIA DOCUMENTED OUR VISIT AND ENTERED ORDERS IN THE EMR UNDER MY DIRECT SUPERVISION. I DISCUSSED THE CARE PLAN WITH THE NURSING STAFF AND FAMILY (IF PRESENT). Annika Pierce MD, FACS Dec 05, 2016 11:29 Yrn Melgar MD Dec 11, 2016 11:47
--- NOTE | 2016-12-05 13:21 | HHI.PR ---
Subjective Remarks has lost some of his appetite. nothing sounds good at this time. C/o acidic taste. Denies nausea. Colostomy bag has sprung several leaks. Objective Vital Signs Vital Signs Date Time Temp Pulse Resp B/P Pulse Ox O2 Delivery O2 Flow Rate FiO2 12/05/16 12:00 97.8 85 17 130/60 97 12/05/16 08:00 98.9 73 18 130/62 97 12/05/16 08:00 Nasal Cannula 2.00 21 12/05/16 04:00 97.9 81 20 142/63 98 12/05/16 00:00 97.2 72 22 127/58 97 12/04/16 20:00 96.1 72 22 127/60 97 12/04/16 20:00 71 12/04/16 18:00 97.2 72 19 128/78 97 I/O 12/04/16 12/04/16 12/04/16 12/05/16 12/05/16 12/05/16 07:00 15:00 23:00 07:00 15:00 23:00 Intake Total 1083 ml 880 ml 2101 ml 720 ml 120 ml Output Total 800 ml 1000 ml 550 ml 1000 ml Balance 283 ml -120 ml 1551 ml -280 ml 120 ml Intake Oral 240 ml 880 ml 720 ml 120 ml 120 ml TPN/PPN 593 ml 1381 ml 600 ml Lipid 250 ml Output Urine Total 800 ml 550 ml 1000 ml Stool Total 200 ml Drainage Total 800 ml # Bowel Movements 0 Result Diagram: 12/05/16 0600 12/05/16 0600 Objective Remarks NAD. A/O x 3 RRR Respiration Nonlabored abd soft, no peritoneal signs. colostomy bag in place, mild erythema around skin incision. less output from fistula. Ileal conduit more pink, viable. Appears tip of conduit has sloughed off. Ext NT. No c/c/e Procedures Radical Cystoprostatectomy, Pelvic LN dissection, Ileal Conduit 11/05/2016 Assessment and Plan Assessment and Plan s/p Radical Cystoprostatectomy, Ileal Conduit with post operative ileus, A- flutter with RVR, enterocutaneous fistula -continue TPN, full diet. Fistula output decreasing. -PT/OT -Will likely need definitive surgical repair in 6-8 weeks. -Appreciate all other service input -Recommend against rehab at this time due to complexity of fistula, wounds. -Increase Protonix to BID. Duncan Huff MD Dec 05, 2016 13:21
--- NOTE | 2016-12-05 15:43 | HHI.PR ---
Subjective Remarks Follow-up surgical wound, COPD. No complaints at this time. Colostomy bag replaced. Objective Vitals Vital Signs Date Time Temp Pulse Resp B/P Pulse Ox O2 Delivery O2 Flow Rate FiO2 12/05/16 12:00 97.8 85 17 130/60 97 12/05/16 08:00 98.9 73 18 130/62 97 12/05/16 08:00 Nasal Cannula 2.00 21 12/05/16 04:00 97.9 81 20 142/63 98 12/05/16 00:00 97.2 72 22 127/58 97 12/04/16 20:00 96.1 72 22 127/60 97 12/04/16 20:00 71 12/04/16 18:00 97.2 72 19 128/78 97 I/O 12/04/16 12/04/16 12/04/16 12/05/16 12/05/16 12/05/16 07:00 15:00 23:00 07:00 15:00 23:00 Intake Total 1083 ml 880 ml 2101 ml 720 ml 1080 ml Output Total 800 ml 1000 ml 550 ml 1000 ml 700 ml Balance 283 ml -120 ml 1551 ml -280 ml 380 ml Intake Oral 240 ml 880 ml 720 ml 120 ml 1080 ml TPN/PPN 593 ml 1381 ml 600 ml Lipid 250 ml Output Urine Total 800 ml 550 ml 1000 ml 500 ml Stool Total 200 ml 200 ml Drainage Total 800 ml # Bowel Movements 0 Result Diagram: 12/05/16 0600 12/05/16 0600 Imaging Last Impressions Chest X-Ray 11/19/16 0000 Signed Impressions: Service Date/Time: Saturday, November 19, 2016 13:34 - CONCLUSION: 1. No placement of right central venous line with no evidence of pneumothorax. 2. Interval placement of nasogastric tube. 3. Patchy opacity remains at the lung bases. Orion Aguilera MD Abdomen/Pelvis CT 11/19/16 0000 Signed Impressions: Service Date/Time: Saturday, November 19, 2016 20:12 - CONCLUSION: 1. Status post cystectomy with an ileal loop in the right lower quadrant. Ureteral stents are seen through the ileal loop bilaterally. No hydronephrosis is seen. 2. 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 This appearance is completely unchanged. There is an adjacent segment of small bowel herniating through this region. This is also unchanged from the prior exam. 3. Bibasilar areas of consolidation or atelectasis. 4. Status post cystectomy and suspected prostatectomy. 5. Evidence of prior granulomatous exposure. Harris Yusuf MD Central Venous Line 11/14/16 0000 Signed Impressions: Service Date/Time: Monday, November 14, 2016 16:07 - CONCLUSION: Uncomplicated line placement as above. Mando Rodriguez MD CT Angiography 11/12/16 0000 Signed Impressions: Service Date/Time: Saturday, November 12, 2016 04:09 - CONCLUSION: 1. No evidence for pulmonary embolism. 2. Abnormal patchy areas of pulmonary consolidation are noted as described above. Small pleural effusions. 3. Emphysema. Timmy Jacobson MD Lower Extremity Ultrasound 11/11/16 0000 Signed Impressions: Service Date/Time: Friday, November 11, 2016 10:03 - CONCLUSION: Negative exam with no evidence of deep venous thrombosis. Orion Aguilera MD Abdomen X-Ray 11/11/16 0000 Signed Impressions: Service Date/Time: Friday, November 11, 2016 17:02 - CONCLUSION: 1. Air distention of small bowel loops in the left upper abdominal quadrant with decompression of the visualized portions of the colon. Pattern is concerning for possible early small bowel obstruction versus focal hypodynamic ileus. This study will serve as a baseline for followup imaging. 2. Postsurgical changes characteristic of ileal conduit with bilateral double-J stents terminating in the right lower abdominal quadrant. Mando Rodriguez MD Objective Remarks General: No acute distress. Heart: Regular rate and rhythm. No murmur. Lungs: Clear to auscultation bilaterally. No wheezes, rales, or rhonchi. Breathing is nonlabored. Abdomen: Soft, ostomy bag in place. Extremities: No lower extremity edema. Psych: Alert and oriented. Procedures 11/05/2016 Symptomatic large supraumbilical hernia. Bladder cancer requiring radical cystectomy. 11/08/2016 1. Radical cystoprostatectomy with ileal conduit. 2. Bilateral pelvic lymph node dissection. Right IJ central line Urinary Catheter: No Vascular Central Line Catheter: No A/P Problem List: (1) Acute exacerbation of chronic obstructive pulmonary disease (COPD) ICD Code: J44.1 Status: Resolved (2) Bladder cancer ICD Code: C67.9 Status: Chronic (3) HTN (hypertension) ICD Code: I10 Status: Chronic (4) Atrial flutter ICD Code: I48.92 Status: Chronic Assessment and Plan Reviewed/updated 12/05/16. No changes. 1. Bladder cancer: Status post radical cystoprostatectomy with ileal conduit. Patient developed postoperative ileus, enterocutaneous fistula. Appreciate general surgery and urology recommendations. Will likely need definitive surgical repair in 6-8 weeks. Surgery and urology are recommending that the patient remain inpatient secondary to the complexity of his wounds, fistula. 2. Ileus versus partial small bowel obstruction: Improved. Tolerating full liquids. Continue TPN. 3. Acute exacerbation of COPD: Resolved. Continue supplemental oxygen. Status post treatment with Levaquin. Continue bronchodilators. 4. Enterocutaneous fistula: Continue wound care. 5. Atrial flutter with RVR: Stable. Continue oral Cardizem, apixaban. 6. Hypertension: Continue Cardizem, Lasix. 7. Anemia secondary to acute blood loss: Status post transfusion. Hemoglobin improved. 8. Leukocytosis: Monitor labs. Completed course of Augmentin. 9. Fluid overload: Continue Lasix. 10. Hyperkalemia: Resolved. 11. Mild hyponatremia: Asymptomatic. 12. Hyperglycemia secondary to TPN: Patient has history of borderline diabetes. A1c is 6.4. Continue regular insulin. Continue sliding scale insulin coverage. 13. Deconditioning: Continue physical therapy. 14. DVT prophylaxis: Eliquis. Discharge Planning Per general surgery and urology, patient to remain inpatient until wound healing has progressed, which may take weeks due to the complexity of the wound. Doug Baltazar MD Dec 05, 2016 15:43
[2016-12-05] MEDS: ATORVASTATIN 40 MG TAB PO SCH (22:23)
[2016-12-05] MEDS: MULTIVITAMIN INJ 10 ML, FOLIC ACID INJ 1 MG, INSULIN HUMAN REGULAR INJ 40 UNITS in AMIN... IV-CENTRAL SCH (22:24)
[2016-12-06] VITALS: BP 126/59; PULSE 82; RESP 20; TEMP 98.2; O2SAT 97
[2016-12-06] MEDS: diphenhydrAMINE HCL 25 MG CAP PO PRN (00:33)
[2016-12-06] MEDS: oxyCODONE/ACETAMINOPHEN 5 MG/325 MG TAB PO PRN ×2 (02:36→08:10)
[2016-12-06 04:00] VITALS: BP 134/60; PULSE 80; RESP 20; TEMP 97.1; O2SAT 98
[2016-12-06] MEDS: INSULIN ASPART SUPPLEMENTAL SCALE SQ SCH ×4 (07:00→21:58)
[2016-12-06 08:00] VITALS: BP 138/51; PULSE 71; RESP 18; TEMP 97.6; O2SAT 99
[2016-12-06] MEDS: PANTOPRAZOLE SOD 40 MG DELAYED RELEASE TAB PO SCH ×2 (08:09→21:53)
[2016-12-06] MEDS: FUROSEMIDE 20 MG TAB PO SCH ×2 (08:09→16:36)
[2016-12-06] MEDS: CETIRIZINE HCL 10 MG TAB PO SCH (08:10)
[2016-12-06] MEDS: DILTIAZEM-CD 120 MG CAP ER PO SCH (08:10)
[2016-12-06] MEDS: APIXABAN 5 MG TABLET PO SCH ×2 (08:10→21:53)
[2016-12-06] MEDS: SODIUM CHLORIDE 0.9% FLUSH 5 ML FLUSH IVF SCH (08:11)
[2016-12-06] MEDS: SPIRIVA RESPIMAT INH SCH (08:12)
[2016-12-06] MEDS: BUDESONIDE-FORMOTEROL 160/4.5 MCG INHALER INH SCH ×2 (08:13→21:54)
[2016-12-06 12:01] VITALS: BP 117/44; PULSE 86; RESP 19; TEMP 98.1; O2SAT 96
--- NOTE | 2016-12-06 15:44 | HHI.PR ---
Subjective Remarks Follow up abdominal wound, COPD. No complaints at this time. Colostomy bag is working well. Objective Vitals Vital Signs Date Time Temp Pulse Resp B/P Pulse Ox O2 Delivery O2 Flow Rate FiO2 12/06/16 12:01 98.1 86 19 117/44 96 12/06/16 08:00 97.6 71 18 138/51 99 12/06/16 04:00 97.1 80 20 134/60 98 12/06/16 00:00 98.2 82 20 126/59 97 12/05/16 20:14 85 12/05/16 20:00 98.4 85 20 119/56 97 12/05/16 16:00 97.5 83 18 146/57 95 I/O 12/05/16 12/05/16 12/05/16 12/06/16 12/06/16 12/06/16 07:00 15:00 23:00 07:00 15:00 23:00 Intake Total 720 ml 1080 ml 980 ml 1230 ml 600 ml Output Total 1000 ml 700 ml 700 ml 750 ml 500 ml Balance -280 ml 380 ml 280 ml 480 ml 100 ml Intake Oral 120 ml 1080 ml 480 ml 480 ml 600 ml TPN/PPN 600 ml 500 ml 750 ml Output Urine Total 1000 ml 500 ml 700 ml 750 ml Stool Total 200 ml Drainage Total 500 ml # Bowel Movements 0 Result Diagram: 12/05/16 0600 12/05/16 0600 Imaging Last Impressions Chest X-Ray 11/19/16 0000 Signed Impressions: Service Date/Time: Saturday, November 19, 2016 13:34 - CONCLUSION: 1. No placement of right central venous line with no evidence of pneumothorax. 2. Interval placement of nasogastric tube. 3. Patchy opacity remains at the lung bases. Orion Aguilera MD Abdomen/Pelvis CT 11/19/16 0000 Signed Impressions: Service Date/Time: Saturday, November 19, 2016 20:12 - CONCLUSION: 1. Status post cystectomy with an ileal loop in the right lower quadrant. Ureteral stents are seen through the ileal loop bilaterally. No hydronephrosis is seen. 2. 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 This appearance is completely unchanged. There is an adjacent segment of small bowel herniating through this region. This is also unchanged from the prior exam. 3. Bibasilar areas of consolidation or atelectasis. 4. Status post cystectomy and suspected prostatectomy. 5. Evidence of prior granulomatous exposure. Harris Yusuf MD Central Venous Line 11/14/16 0000 Signed Impressions: Service Date/Time: Monday, November 14, 2016 16:07 - CONCLUSION: Uncomplicated line placement as above. Mando Rodriguez MD CT Angiography 11/12/16 0000 Signed Impressions: Service Date/Time: Saturday, November 12, 2016 04:09 - CONCLUSION: 1. No evidence for pulmonary embolism. 2. Abnormal patchy areas of pulmonary consolidation are noted as described above. Small pleural effusions. 3. Emphysema. Timmy Jacobson MD Lower Extremity Ultrasound 11/11/16 0000 Signed Impressions: Service Date/Time: Friday, November 11, 2016 10:03 - CONCLUSION: Negative exam with no evidence of deep venous thrombosis. Orion Aguilera MD Abdomen X-Ray 11/11/16 0000 Signed Impressions: Service Date/Time: Friday, November 11, 2016 17:02 - CONCLUSION: 1. Air distention of small bowel loops in the left upper abdominal quadrant with decompression of the visualized portions of the colon. Pattern is concerning for possible early small bowel obstruction versus focal hypodynamic ileus. This study will serve as a baseline for followup imaging. 2. Postsurgical changes characteristic of ileal conduit with bilateral double-J stents terminating in the right lower abdominal quadrant. Mando Rodriguez MD Objective Remarks General: No acute distress. Heart: Regular rate and rhythm. No murmur. Lungs: Clear to auscultation bilaterally. No wheezes, rales, or rhonchi. Breathing is nonlabored. Abdomen: Soft, ostomy bag in place. Extremities: No lower extremity edema. Psych: Alert and oriented. Procedures 11/05/2016 Symptomatic large supraumbilical hernia. Bladder cancer requiring radical cystectomy. 11/08/2016 1. Radical cystoprostatectomy with ileal conduit. 2. Bilateral pelvic lymph node dissection. Right IJ central line Urinary Catheter: No Vascular Central Line Catheter: No A/P Problem List: (1) Acute exacerbation of chronic obstructive pulmonary disease (COPD) ICD Code: J44.1 Status: Resolved (2) Bladder cancer ICD Code: C67.9 Status: Chronic (3) HTN (hypertension) ICD Code: I10 Status: Chronic (4) Atrial flutter ICD Code: I48.92 Status: Chronic Assessment and Plan Reviewed/updated 12/06/16. No changes. 1. Bladder cancer: Status post radical cystoprostatectomy with ileal conduit. Patient developed postoperative ileus, enterocutaneous fistula. Appreciate general surgery and urology recommendations. Will likely need definitive surgical repair in 6-8 weeks. Surgery and urology are recommending that the patient remain inpatient secondary to the complexity of his wounds, fistula. 2. Ileus versus partial small bowel obstruction: Improved. Tolerating full liquids. Continue TPN. 3. Acute exacerbation of COPD: Resolved. Continue supplemental oxygen. Status post treatment with Levaquin. Continue bronchodilators. 4. Enterocutaneous fistula: Continue wound care. 5. Atrial flutter with RVR: Stable. Continue oral Cardizem, apixaban. 6. Hypertension: Continue Cardizem, Lasix. 7. Anemia secondary to acute blood loss: Status post transfusion. Hemoglobin improved. 8. Leukocytosis: Monitor labs. Completed course of Augmentin. 9. Fluid overload: Continue Lasix. 10. Hyperkalemia: Resolved. 11. Mild hyponatremia: Asymptomatic. 12. Hyperglycemia secondary to TPN: Patient has history of borderline diabetes. A1c is 6.4. Continue regular insulin. Continue sliding scale insulin coverage. 13. Deconditioning: Continue physical therapy. 14. DVT prophylaxis: Eliquis. Discharge Planning Per general surgery and urology, patient to remain inpatient until wound healing has progressed, which may take weeks due to the complexity of the wound. Doug Baltazar MD Dec 06, 2016 15:44
[2016-12-06 16:00] VITALS: BP 121/56; PULSE 76; RESP 20; TEMP 97.4; O2SAT 98
[2016-12-06 20:00] VITALS: BP 145/63; PULSE 78; RESP 18; TEMP 97.1; O2SAT 98
[2016-12-06] MEDS: MULTIVITAMIN INJ 10 ML, FOLIC ACID INJ 1 MG, INSULIN HUMAN REGULAR INJ 40 UNITS in AMIN... IV-CENTRAL SCH (21:52)
[2016-12-06] MEDS: ATORVASTATIN 40 MG TAB PO SCH (21:53)
[2016-12-07] VITALS (7 sets, daily range): BP systolic 112–140; BP diastolic 49–70; PULSE 73–86; RESP 18–20; TEMP 95.5–98.2; O2SAT 91–99
[2016-12-07] MEDS: oxyCODONE/ACETAMINOPHEN 5 MG/325 MG TAB PO PRN ×2 (01:24→23:32)
[2016-12-07] MEDS: INSULIN ASPART SUPPLEMENTAL SCALE SQ SCH ×4 (06:49→21:44)
[2016-12-07] MEDS: PANTOPRAZOLE SOD 40 MG DELAYED RELEASE TAB PO SCH ×2 (08:21→21:30)
[2016-12-07] MEDS: DILTIAZEM-CD 120 MG CAP ER PO SCH (08:21)
[2016-12-07] MEDS: APIXABAN 5 MG TABLET PO SCH ×2 (08:21→21:30)
[2016-12-07] MEDS: FUROSEMIDE 20 MG TAB PO SCH ×2 (08:22→18:27)
[2016-12-07] MEDS: SODIUM CHLORIDE 0.9% FLUSH 5 ML FLUSH IVF SCH (08:22)
[2016-12-07] MEDS: CETIRIZINE HCL 10 MG TAB PO SCH (08:22)
[2016-12-07] MEDS: SPIRIVA RESPIMAT INH SCH (08:23)
[2016-12-07] MEDS: BUDESONIDE-FORMOTEROL 160/4.5 MCG INHALER INH SCH ×2 (08:23→21:31)
--- NOTE | 2016-12-07 13:56 | HHI.PR ---
Subjective Remarks Follow up abdominal wound, COPD. The patient has no complaints at this time. Pain is controlled. He has been ambulating farther each day. Objective Vitals Vital Signs Date Time Temp Pulse Resp B/P Pulse Ox O2 Delivery O2 Flow Rate FiO2 12/07/16 12:00 91 Room Air 12/07/16 12:00 95.5 86 18 137/63 91 137/63 128/70 12/07/16 08:25 99 Nasal Cannula 2.00 12/07/16 08:00 96.5 73 18 131/60 97 12/07/16 04:43 97.7 73 20 120/58 99 12/07/16 02:25 16 12/07/16 00:00 97.2 84 18 112/54 97 12/06/16 21:50 Nasal Cannula 2.00 21 12/06/16 20:00 97.1 78 18 145/63 98 12/06/16 16:00 97.4 76 20 121/56 98 I/O 12/06/16 12/06/16 12/06/16 12/07/16 12/07/16 12/07/16 07:00 15:00 23:00 07:00 15:00 23:00 Intake Total 1230 ml 600 ml 1442 ml 240 ml 618 ml Output Total 750 ml 500 ml 900 ml 650 ml Balance 480 ml 100 ml 542 ml -410 ml 618 ml Intake Oral 480 ml 600 ml 360 ml 240 ml IV Total 0 ml 0 ml TPN/PPN 750 ml 1082 ml 618 ml Output Urine Total 750 ml 900 ml 650 ml Drainage Total 500 ml # Bowel Movements 0 Result Diagram: 12/05/16 0600 12/05/16 0600 Imaging Last Impressions Chest X-Ray 11/19/16 0000 Signed Impressions: Service Date/Time: Saturday, November 19, 2016 13:34 - CONCLUSION: 1. No placement of right central venous line with no evidence of pneumothorax. 2. Interval placement of nasogastric tube. 3. Patchy opacity remains at the lung bases. Orion Aguilera MD Abdomen/Pelvis CT 11/19/16 0000 Signed Impressions: Service Date/Time: Saturday, November 19, 2016 20:12 - CONCLUSION: 1. Status post cystectomy with an ileal loop in the right lower quadrant. Ureteral stents are seen through the ileal loop bilaterally. No hydronephrosis is seen. 2. 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 This appearance is completely unchanged. There is an adjacent segment of small bowel herniating through this region. This is also unchanged from the prior exam. 3. Bibasilar areas of consolidation or atelectasis. 4. Status post cystectomy and suspected prostatectomy. 5. Evidence of prior granulomatous exposure. Harris Yusuf MD Central Venous Line 11/14/16 0000 Signed Impressions: Service Date/Time: Monday, November 14, 2016 16:07 - CONCLUSION: Uncomplicated line placement as above. Mando Rodriguez MD CT Angiography 11/12/16 0000 Signed Impressions: Service Date/Time: Saturday, November 12, 2016 04:09 - CONCLUSION: 1. No evidence for pulmonary embolism. 2. Abnormal patchy areas of pulmonary consolidation are noted as described above. Small pleural effusions. 3. Emphysema. Timmy Jacobson MD Lower Extremity Ultrasound 11/11/16 0000 Signed Impressions: Service Date/Time: Friday, November 11, 2016 10:03 - CONCLUSION: Negative exam with no evidence of deep venous thrombosis. Orion Aguilera MD Abdomen X-Ray 11/11/16 0000 Signed Impressions: Service Date/Time: Friday, November 11, 2016 17:02 - CONCLUSION: 1. Air distention of small bowel loops in the left upper abdominal quadrant with decompression of the visualized portions of the colon. Pattern is concerning for possible early small bowel obstruction versus focal hypodynamic ileus. This study will serve as a baseline for followup imaging. 2. Postsurgical changes characteristic of ileal conduit with bilateral double-J stents terminating in the right lower abdominal quadrant. Mando Rodriguez MD Objective Remarks General: No acute distress. Sitting up in a chair. Heart: Regular rate and rhythm. No murmur. Lungs: Clear to auscultation bilaterally. No wheezes, rales, or rhonchi. Breathing is nonlabored. Abdomen: Soft, ostomy bag in place. Extremities: No lower extremity edema. Psych: Alert and oriented. Procedures 11/05/2016 Symptomatic large supraumbilical hernia. Bladder cancer requiring radical cystectomy. 11/08/2016 1. Radical cystoprostatectomy with ileal conduit. 2. Bilateral pelvic lymph node dissection. Right IJ central line Urinary Catheter: No Vascular Central Line Catheter: No A/P Problem List: (1) Acute exacerbation of chronic obstructive pulmonary disease (COPD) ICD Code: J44.1 Status: Resolved (2) Bladder cancer ICD Code: C67.9 Status: Chronic (3) HTN (hypertension) ICD Code: I10 Status: Chronic (4) Atrial flutter ICD Code: I48.92 Status: Chronic Assessment and Plan Reviewed/updated 12/07/16. No changes. 1. Bladder cancer: Status post radical cystoprostatectomy with ileal conduit. Patient developed postoperative ileus, enterocutaneous fistula. Appreciate general surgery and urology recommendations. Will likely need definitive surgical repair in 6-8 weeks. Surgery and urology are recommending that the patient remain inpatient secondary to the complexity of his wounds, fistula. 2. Ileus versus partial small bowel obstruction: Improved. Tolerating full liquids. Continue TPN. 3. Acute exacerbation of COPD: Resolved. Continue supplemental oxygen. Status post treatment with Levaquin. Continue bronchodilators. 4. Enterocutaneous fistula: Continue wound care. 5. Atrial flutter with RVR: Stable. Continue oral Cardizem, apixaban. 6. Hypertension: Continue Cardizem, Lasix. 7. Anemia secondary to acute blood loss: Status post transfusion. Hemoglobin improved. 8. Leukocytosis: Monitor labs. Completed course of Augmentin. 9. Fluid overload: Continue Lasix. 10. Hyperkalemia: Resolved. 11. Mild hyponatremia: Asymptomatic. Monitor labs. 12. Hyperglycemia secondary to TPN: Patient has history of borderline diabetes. A1c is 6.4. Continue regular insulin. Continue sliding scale insulin coverage. 13. Deconditioning: Continue physical therapy. 14. DVT prophylaxis: Eliquis. Discharge Planning Per general surgery and urology, patient to remain inpatient until wound healing has progressed, which may take weeks due to the complexity of the wound. Doug Baltazar MD Dec 07, 2016 13:56
[2016-12-07] MEDS: FAT EMULSION 20% INJ 250 ML (Twice weekly over 8 hours) IV-CENTRAL SCH (21:29)
[2016-12-07] MEDS: MULTIVITAMIN INJ 10 ML, FOLIC ACID INJ 1 MG, INSULIN HUMAN REGULAR INJ 40 UNITS in AMIN... IV-CENTRAL SCH (21:29)
[2016-12-07] MEDS: ATORVASTATIN 40 MG TAB PO SCH (21:30)
[2016-12-08] VITALS (7 sets, daily range): BP systolic 114–139; BP diastolic 45–76; PULSE 74–92; RESP 17–20; TEMP 96.1–98.6; O2SAT 92–96
[2016-12-08] MEDS: INSULIN ASPART SUPPLEMENTAL SCALE SQ SCH ×4 (05:54→23:07)
[2016-12-08 06:14] LABS: AUTOMATED NEUTROPHIL # 5.6 TH/MM3 (1.8-7.7); BASOPHIL % 0.5 % (0.0-2.0); EOSINOPHIL # 0.2 TH/MM3 (0-0.4); EOSINOPHIL % 2.9 % (0.0-4.0); HEMATOCRIT 27.9 % (39.0-51.0); LYMPH % 16.4 % (9.0-44.0); LYMPHOCYTE # 1.3 TH/MM3 (1.0-4.8); MEAN CELL VOLUME 88.2 FL (80.0-100.0); MEAN CORPUSCULAR HEMOGLOBIN 31.3 PG (27.0-34.0); MEAN CORPUSCULAR HGB CONC 35.5 % (32.0-36.0); NEUT % 72.2 % (16.0-70.0); PLATELET COUNT 227 TH/MM3 (150-450); RED BLOOD COUNT 3.17 MIL/MM3 (4.50-5.90); RED CELL DISTRIBUTION WIDTH 15.1 % (11.6-17.2); WHITE BLOOD COUNT 7.8 TH/MM3 (4.0-11.0)
[2016-12-08 06:23] LABS: HEMO FLAGS AUTO DIFF
[2016-12-08 06:34] LABS: BICARBONATE 30.8 MEQ/L (21.0-32.0); POTASSIUM 4.2 MEQ/L (3.5-5.1)
[2016-12-08 07:27] LABS: BANDS 8 % (0-6); METAMYELOCYTES 1 % (0-1); MYELOCYTES 3 % (0-0); NEUTROPHIL # MANUAL DIFF 5.8 TH/MM3 (1.8-7.7); POLYS (SEG NEUTROPHILS) 62 % (16-70); WBC DIFF SAMPLE 100
[2016-12-08 07:28] LABS: PLATELET ESTIMATE SMEAR NORMAL (NORMAL); PLATELET MORPHOLOGY NORMAL (NORMAL); POLYCHROMASIA 2.8 % (0.0-1.9); SCAN/DIFF FINAL DIFF MANUAL
[2016-12-08] MEDS: PANTOPRAZOLE SOD 40 MG DELAYED RELEASE TAB PO SCH ×2 (08:16→23:06)
[2016-12-08] MEDS: APIXABAN 5 MG TABLET PO SCH ×2 (08:16→23:06)
[2016-12-08] MEDS: FUROSEMIDE 20 MG TAB PO SCH ×2 (08:16→17:21)
[2016-12-08] MEDS: DILTIAZEM-CD 120 MG CAP ER PO SCH (08:16)
[2016-12-08] MEDS: CETIRIZINE HCL 10 MG TAB PO SCH (08:16)
[2016-12-08] MEDS: BUDESONIDE-FORMOTEROL 160/4.5 MCG INHALER INH SCH ×2 (08:17→23:10)
[2016-12-08] MEDS: SPIRIVA RESPIMAT INH SCH (08:17)
[2016-12-08] MEDS: SODIUM CHLORIDE 0.9% FLUSH 5 ML FLUSH IVF SCH (08:17)
--- NOTE | 2016-12-08 12:40 | HHI.PR ---
Subjective Remarks no acute issues. colostomy bag with tight seal. no leaking. ambulating more. strength improved. appetite better. has flatus per rectum. Objective Vital Signs Vital Signs Date Time Temp Pulse Resp B/P Pulse Ox O2 Delivery O2 Flow Rate FiO2 12/08/16 11:56 96.1 78 20 114/55 96 12/08/16 09:46 Nasal Cannula 2.00 12/08/16 08:09 96 Nasal Cannula 2.00 12/08/16 08:08 96.2 75 20 139/61 96 12/08/16 04:00 97.7 85 20 118/76 93 12/08/16 01:34 18 12/08/16 00:00 98.6 92 20 119/45 92 12/07/16 21:30 Room Air 12/07/16 20:00 98.2 85 20 120/49 93 12/07/16 17:47 99 Nasal Cannula 2.00 12/07/16 16:00 97.2 78 18 140/63 94 12/07/16 15:49 91 Room Air I/O 12/07/16 12/07/16 12/07/16 12/08/16 12/08/16 12/08/16 07:00 15:00 23:00 07:00 15:00 23:00 Intake Total 240 ml 2418 ml 1844 ml 0 ml 835 ml Output Total 650 ml 1600 ml 400 ml 1500 ml Balance -410 ml 818 ml 1444 ml 0 ml -665 ml Intake Oral 240 ml 1800 ml 720 ml 0 ml IV Total 0 ml 0 ml 0 ml TPN/PPN 618 ml 1124 ml 585 ml Lipid 250 ml Output Urine Total 650 ml 1600 ml 400 ml Drainage Total 1500 ml # Bowel Movements 0 Result Diagram: 12/08/16 0545 12/08/16 0545 Objective Remarks NAD. A/O x 3 RRR Respiration Nonlabored abd soft, no peritoneal signs. colostomy bag in place, mild erythema around skin incision. less output from fistula. Ileal conduit more pink, viable. Appears tip of conduit has sloughed off. Ext NT. No c/c/e Procedures Radical Cystoprostatectomy, Pelvic LN dissection, Ileal Conduit 11/05/2016 Assessment and Plan Assessment and Plan s/p Radical Cystoprostatectomy, Ileal Conduit with post operative ileus, A- flutter with RVR, enterocutaneous fistula -continue TPN, full diet. Fistula output decreasing. -PT/OT -Will likely need definitive surgical repair in 6 weeks at the earliest. -Ureteral stents can be removed at next colostomy bag change. -He should remain as an inpatient at this time. Duncan Huff MD Dec 08, 2016 12:39
--- NOTE | 2016-12-08 14:25 | HHI.PR ---
Subjective Remarks Follow up abdominal wound, COPD. Is reporting insomnia. States Benadryl has not helped. Pain is controlled with current medication regimen. No nausea or vomiting. Has been increasing his ambulation each day. He does report gas pains. Objective Vitals Vital Signs Date Time Temp Pulse Resp B/P Pulse Ox O2 Delivery O2 Flow Rate FiO2 12/08/16 11:56 96.1 78 20 114/55 96 12/08/16 09:46 Nasal Cannula 2.00 12/08/16 08:09 96 Nasal Cannula 2.00 12/08/16 08:08 96.2 75 20 139/61 96 12/08/16 04:00 97.7 85 20 118/76 93 12/08/16 01:34 18 12/08/16 00:00 98.6 92 20 119/45 92 12/07/16 21:30 Room Air 12/07/16 20:00 98.2 85 20 120/49 93 12/07/16 17:47 99 Nasal Cannula 2.00 12/07/16 16:00 97.2 78 18 140/63 94 12/07/16 15:49 91 Room Air I/O 12/07/16 12/07/16 12/07/16 12/08/16 12/08/16 12/08/16 07:00 15:00 23:00 07:00 15:00 23:00 Intake Total 240 ml 2418 ml 1844 ml 0 ml 1379 ml Output Total 650 ml 1600 ml 400 ml 1500 ml Balance -410 ml 818 ml 1444 ml 0 ml -121 ml Intake Oral 240 ml 1800 ml 720 ml 0 ml IV Total 0 ml 0 ml 0 ml TPN/PPN 618 ml 1124 ml 1129 ml Lipid 250 ml Output Urine Total 650 ml 1600 ml 400 ml Drainage Total 1500 ml # Bowel Movements 0 Result Diagram: 12/08/16 0545 12/08/16 0545 Imaging Last Impressions Chest X-Ray 11/19/16 0000 Signed Impressions: Service Date/Time: Saturday, November 19, 2016 13:34 - CONCLUSION: 1. No placement of right central venous line with no evidence of pneumothorax. 2. Interval placement of nasogastric tube. 3. Patchy opacity remains at the lung bases. Orion Aguilera MD Abdomen/Pelvis CT 11/19/16 0000 Signed Impressions: Service Date/Time: Saturday, November 19, 2016 20:12 - CONCLUSION: 1. Status post cystectomy with an ileal loop in the right lower quadrant. Ureteral stents are seen through the ileal loop bilaterally. No hydronephrosis is seen. 2. 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 This appearance is completely unchanged. There is an adjacent segment of small bowel herniating through this region. This is also unchanged from the prior exam. 3. Bibasilar areas of consolidation or atelectasis. 4. Status post cystectomy and suspected prostatectomy. 5. Evidence of prior granulomatous exposure. Harris Yusuf MD Central Venous Line 11/14/16 0000 Signed Impressions: Service Date/Time: Monday, November 14, 2016 16:07 - CONCLUSION: Uncomplicated line placement as above. Mando Rodriguez MD CT Angiography 11/12/16 0000 Signed Impressions: Service Date/Time: Saturday, November 12, 2016 04:09 - CONCLUSION: 1. No evidence for pulmonary embolism. 2. Abnormal patchy areas of pulmonary consolidation are noted as described above. Small pleural effusions. 3. Emphysema. Timmy Jacobson MD Lower Extremity Ultrasound 11/11/16 0000 Signed Impressions: Service Date/Time: Friday, November 11, 2016 10:03 - CONCLUSION: Negative exam with no evidence of deep venous thrombosis. Orion Aguilera MD Abdomen X-Ray 11/11/16 0000 Signed Impressions: Service Date/Time: Friday, November 11, 2016 17:02 - CONCLUSION: 1. Air distention of small bowel loops in the left upper abdominal quadrant with decompression of the visualized portions of the colon. Pattern is concerning for possible early small bowel obstruction versus focal hypodynamic ileus. This study will serve as a baseline for followup imaging. 2. Postsurgical changes characteristic of ileal conduit with bilateral double-J stents terminating in the right lower abdominal quadrant. Mando Rodriguez MD Objective Remarks General: No acute distress. Heart: Regular rate and rhythm. No murmur. Lungs: Clear to auscultation bilaterally. No wheezes, rales, or rhonchi. Breathing is nonlabored. Abdomen: Soft, ostomy bag in place. Extremities: No lower extremity edema. Psych: Alert and oriented. Procedures 11/05/2016 Symptomatic large supraumbilical hernia. Bladder cancer requiring radical cystectomy. 11/08/2016 1. Radical cystoprostatectomy with ileal conduit. 2. Bilateral pelvic lymph node dissection. Right IJ central line Urinary Catheter: No Vascular Central Line Catheter: No A/P Problem List: (1) Acute exacerbation of chronic obstructive pulmonary disease (COPD) ICD Code: J44.1 Status: Resolved (2) Bladder cancer ICD Code: C67.9 Status: Chronic (3) HTN (hypertension) ICD Code: I10 Status: Chronic (4) Atrial flutter ICD Code: I48.92 Status: Chronic Assessment and Plan Reviewed/updated 12/08/16. Add low-dose temazepam for insomnia. 1. Bladder cancer: Status post radical cystoprostatectomy with ileal conduit. Patient developed postoperative ileus, enterocutaneous fistula. Appreciate general surgery and urology recommendations. Will likely need definitive surgical repair in 6-8 weeks. Surgery and urology are recommending that the patient remain inpatient secondary to the complexity of his wounds, fistula. 2. Ileus versus partial small bowel obstruction: Improved. Tolerating full liquids. Continue TPN. 3. Acute exacerbation of COPD: Resolved. Continue supplemental oxygen. Status post treatment with Levaquin. Continue bronchodilators. 4. Enterocutaneous fistula: Continue wound care. 5. Atrial flutter with RVR: Stable. Continue oral Cardizem, apixaban. 6. Hypertension: Continue Cardizem, Lasix. 7. Anemia secondary to acute blood loss: Status post transfusion. Hemoglobin improved. 8. Leukocytosis: Monitor labs. Completed course of Augmentin. 9. Fluid overload: Continue Lasix. 10. Hyperkalemia: Resolved. 11. Mild hyponatremia: Asymptomatic. Monitor labs. 12. Hyperglycemia secondary to TPN: Patient has history of borderline diabetes. A1c is 6.4. Continue regular insulin. Continue sliding scale insulin coverage. 13. Deconditioning: Continue physical therapy. 14. DVT prophylaxis: Eliquis. Discharge Planning Per general surgery and urology, patient to remain inpatient until wound healing has progressed, which may take weeks due to the complexity of the wound. Doug Baltazar MD Dec 08, 2016 14:25
[2016-12-08] MEDS: TEMAZEPAM 7.5 MG CAP PO PRN (23:05)
[2016-12-08] MEDS: ATORVASTATIN 40 MG TAB PO SCH (23:06)
[2016-12-08] MEDS: MULTIVITAMIN INJ 10 ML, FOLIC ACID INJ 1 MG, INSULIN HUMAN REGULAR INJ 40 UNITS in AMIN... IV-CENTRAL SCH (23:09)
[2016-12-09 00:23] VITALS: BP 135/61; PULSE 78; RESP 18; TEMP 97.3; O2SAT 98
[2016-12-09] MEDS: oxyCODONE/ACETAMINOPHEN 5 MG/325 MG TAB PO PRN ×2 (01:13→23:50)
[2016-12-09 04:25] VITALS: BP 137/65; PULSE 88; RESP 18; TEMP 96.9; O2SAT 94
[2016-12-09] MEDS: INSULIN ASPART SUPPLEMENTAL SCALE SQ SCH ×4 (06:42→21:20)
[2016-12-09 08:00] VITALS: BP 140/65; PULSE 81; RESP 17; TEMP 96.7; O2SAT 100
[2016-12-09] MEDS: SODIUM CHLORIDE 0.9% FLUSH 5 ML FLUSH IVF SCH (09:00)
[2016-12-09] MEDS: SPIRIVA RESPIMAT INH SCH (10:35)
[2016-12-09] MEDS: FUROSEMIDE 20 MG TAB PO SCH ×2 (10:37→16:34)
[2016-12-09] MEDS: PANTOPRAZOLE SOD 40 MG DELAYED RELEASE TAB PO SCH ×2 (10:37→21:17)
[2016-12-09] MEDS: DILTIAZEM-CD 120 MG CAP ER PO SCH (10:37)
[2016-12-09] MEDS: CETIRIZINE HCL 10 MG TAB PO SCH (10:37)
[2016-12-09] MEDS: APIXABAN 5 MG TABLET PO SCH ×2 (10:37→21:17)
[2016-12-09] MEDS: BUDESONIDE-FORMOTEROL 160/4.5 MCG INHALER INH SCH ×2 (10:37→21:17)
[2016-12-09 12:00] VITALS: BP 130/60; PULSE 98; RESP 17; TEMP 98.7; O2SAT 98
--- NOTE | 2016-12-09 13:31 | HHI.PR ---
Subjective Subjective Notes Resting in bed Objective Vitals/I&O Vital Signs Date Time Temp Pulse Resp B/P Pulse Ox O2 Delivery O2 Flow Rate FiO2 12/09/16 12:06 Nasal Cannula 2.00 21 12/09/16 12:00 98.7 98 17 130/60 98 Cardiovascular: Regular Lungs: Clear Abdomen: Other (see below ) Extremities: No edema Narrative Exam Abd: urostomy in place with drainage bag---stoma dark; large midline fistula x2 with stool output; 1 smaller fistula with no output A/P Assessment and Plan 70 year old male s/p radical cystectomy and ileo conduit (by Urology); s/p UHR ( by General Surgery) -Continue wound management bag for wound drainage and connect to wound draining bag; Appreciate Wound Care team----no leaks -on Fulls + Ensure -TPN -Encourage mobilization ---OOB daily and ambulate in room and hallway -Patient should remain in the acute hospital setting for now due to complexity of wounds I CERTIFY AND ATTEST THAT I PERSONALLY EXAMINED THIS PATIENT. MS REYES DOCUMENTED OUR VISIT AND ENTERED ORDERS IN THE EMR UNDER MY DIRECT SUPERVISION. I DISCUSSED THE CARE PLAN WITH THE NURSING STAFF AND FAMILY (IF PRESENT). PAULO MOJICA MD [facility] Annika Reyes Dec 09, 2016 13:31 Paulo Mojica MD Dec 11, 2016 11:50
--- NOTE | 2016-12-09 13:53 | HHI.PR ---
Subjective Remarks denies any new issues. denies pain. Getting stronger. Denies nausea, fevers. On TPN, full liquids. Objective Vital Signs Vital Signs Date Time Temp Pulse Resp B/P Pulse Ox O2 Delivery O2 Flow Rate FiO2 12/09/16 12:06 Nasal Cannula 2.00 21 12/09/16 12:00 98.7 98 17 130/60 98 12/09/16 10:20 Nasal Cannula 2.00 21 12/09/16 08:00 96.7 81 17 140/65 100 12/09/16 04:25 96.9 88 18 137/65 94 12/09/16 02:13 18 12/09/16 00:23 97.3 78 18 135/61 98 12/08/16 20:37 96.8 88 17 126/60 95 12/08/16 16:15 96.2 79 20 125/58 96 I/O 12/08/16 12/08/16 12/08/16 12/09/16 12/09/16 12/09/16 07:00 15:00 23:00 07:00 15:00 23:00 Intake Total 0 ml 2579 ml 480 ml 1603 ml Output Total 1500 ml 2500 ml 1000 ml Balance 0 ml 1079 ml -2020 ml 603 ml Intake Oral 0 ml 1200 ml 480 ml 360 ml IV Total 0 ml TPN/PPN 1129 ml 1243 ml Lipid 250 ml Drainage Total 1500 ml 2500 ml 1000 ml Result Diagram: 12/08/16 0545 12/08/16 0545 Objective Remarks NAD. A/O x 3 RRR Respiration Nonlabored abd soft, no peritoneal signs. colostomy bag in place, mild erythema around skin incision. less output from fistula. Ileal conduit more pink, viable. Appears tip of conduit has sloughed off. stents in place. Ext NT. No c/c/e Procedures Radical Cystoprostatectomy, Pelvic LN dissection, Ileal Conduit 11/05/2016 Assessment and Plan Assessment and Plan s/p Radical Cystoprostatectomy, Ileal Conduit with post operative ileus, A- flutter with RVR, enterocutaneous fistula -continue TPN, full diet. Fistula output decreasing. -PT/OT -Will likely need definitive surgical repair in 6 weeks at the earliest. -Ureteral stents can be removed at next colostomy bag change. -He should remain as an inpatient at this time. Duncan Huff MD Dec 09, 2016 13:53
--- NOTE | 2016-12-09 14:43 | HHI.PR ---
Subjective Remarks Follow-up insomnia, abdominal wound. Complaints today. No events overnight per nursing. Objective Vitals Vital Signs Date Time Temp Pulse Resp B/P Pulse Ox O2 Delivery O2 Flow Rate FiO2 12/09/16 12:06 Nasal Cannula 2.00 21 12/09/16 12:00 98.7 98 17 130/60 98 12/09/16 10:20 Nasal Cannula 2.00 21 12/09/16 08:00 96.7 81 17 140/65 100 12/09/16 04:25 96.9 88 18 137/65 94 12/09/16 02:13 18 12/09/16 00:23 97.3 78 18 135/61 98 12/08/16 20:37 96.8 88 17 126/60 95 12/08/16 16:15 96.2 79 20 125/58 96 I/O 12/08/16 12/08/16 12/08/16 12/09/16 12/09/16 12/09/16 07:00 15:00 23:00 07:00 15:00 23:00 Intake Total 0 ml 2579 ml 480 ml 1603 ml 676 ml Output Total 1500 ml 2500 ml 1000 ml Balance 0 ml 1079 ml -2020 ml 603 ml 676 ml Intake Oral 0 ml 1200 ml 480 ml 360 ml IV Total 0 ml TPN/PPN 1129 ml 1243 ml 676 ml Lipid 250 ml Drainage Total 1500 ml 2500 ml 1000 ml Result Diagram: 12/08/16 0545 12/08/16 0545 Imaging Last Impressions Chest X-Ray 11/19/16 0000 Signed Impressions: Service Date/Time: Saturday, November 19, 2016 13:34 - CONCLUSION: 1. No placement of right central venous line with no evidence of pneumothorax. 2. Interval placement of nasogastric tube. 3. Patchy opacity remains at the lung bases. Orion Aguilera MD Abdomen/Pelvis CT 11/19/16 0000 Signed Impressions: Service Date/Time: Saturday, November 19, 2016 20:12 - CONCLUSION: 1. Status post cystectomy with an ileal loop in the right lower quadrant. Ureteral stents are seen through the ileal loop bilaterally. No hydronephrosis is seen. 2. 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 This appearance is completely unchanged. There is an adjacent segment of small bowel herniating through this region. This is also unchanged from the prior exam. 3. Bibasilar areas of consolidation or atelectasis. 4. Status post cystectomy and suspected prostatectomy. 5. Evidence of prior granulomatous exposure. Harris Yusuf MD Central Venous Line 11/14/16 0000 Signed Impressions: Service Date/Time: Monday, November 14, 2016 16:07 - CONCLUSION: Uncomplicated line placement as above. Mando Rodriguez MD CT Angiography 11/12/16 0000 Signed Impressions: Service Date/Time: Saturday, November 12, 2016 04:09 - CONCLUSION: 1. No evidence for pulmonary embolism. 2. Abnormal patchy areas of pulmonary consolidation are noted as described above. Small pleural effusions. 3. Emphysema. Timmy Jacobson MD Lower Extremity Ultrasound 11/11/16 0000 Signed Impressions: Service Date/Time: Friday, November 11, 2016 10:03 - CONCLUSION: Negative exam with no evidence of deep venous thrombosis. Orion Aguilera MD Abdomen X-Ray 11/11/16 0000 Signed Impressions: Service Date/Time: Friday, November 11, 2016 17:02 - CONCLUSION: 1. Air distention of small bowel loops in the left upper abdominal quadrant with decompression of the visualized portions of the colon. Pattern is concerning for possible early small bowel obstruction versus focal hypodynamic ileus. This study will serve as a baseline for followup imaging. 2. Postsurgical changes characteristic of ileal conduit with bilateral double-J stents terminating in the right lower abdominal quadrant. Mando Rodriguez MD Objective Remarks General: No acute distress. Sitting up in a chair. Heart: Regular rate and rhythm. No murmur. Lungs: Clear to auscultation bilaterally. No wheezes, rales, or rhonchi. Breathing is nonlabored. Abdomen: Soft, ostomy bag in place. Extremities: No lower extremity edema. Psych: Alert and oriented. Procedures 11/05/2016 Symptomatic large supraumbilical hernia. Bladder cancer requiring radical cystectomy. 11/08/2016 1. Radical cystoprostatectomy with ileal conduit. 2. Bilateral pelvic lymph node dissection. Right IJ central line Urinary Catheter: No Vascular Central Line Catheter: No A/P Problem List: (1) Acute exacerbation of chronic obstructive pulmonary disease (COPD) ICD Code: J44.1 Status: Resolved (2) Bladder cancer ICD Code: C67.9 Status: Chronic (3) HTN (hypertension) ICD Code: I10 Status: Chronic (4) Atrial flutter ICD Code: I48.92 Status: Chronic (5) Insomnia ICD Code: G47.00 Status: Acute Assessment and Plan Reviewed/updated 12/09/16. No change. 1. Bladder cancer: Status post radical cystoprostatectomy with ileal conduit. Patient developed postoperative ileus, enterocutaneous fistula. Appreciate general surgery and urology recommendations. Will likely need definitive surgical repair in 6-8 weeks. Surgery and urology are recommending that the patient remain inpatient secondary to the complexity of his wounds, fistula. 2. Ileus versus partial small bowel obstruction: Improved. Tolerating full liquids. Continue TPN. 3. Acute exacerbation of COPD: Resolved. Continue supplemental oxygen. Status post treatment with Levaquin. Continue bronchodilators. 4. Enterocutaneous fistula: Continue wound care. 5. Atrial flutter with RVR: Stable. Continue oral Cardizem, apixaban. 6. Hypertension: Continue Cardizem, Lasix. 7. Anemia secondary to acute blood loss: Status post transfusion. Hemoglobin improved. 8. Leukocytosis: Monitor labs. Completed course of Augmentin. 9. Fluid overload: Continue Lasix. 10. Hyperkalemia: Resolved. 11. Mild hyponatremia: Asymptomatic. Monitor labs. 12. Hyperglycemia secondary to TPN: Patient has history of borderline diabetes. A1c is 6.4. Continue sliding scale insulin coverage. 13. Deconditioning: Continue physical therapy. 14. DVT prophylaxis: Eliquis. Discharge Planning Per general surgery and urology, patient is to remain as inpatient until wound healing has progressed, which may take weeks due to the complexity of the wound. Doug Baltazar MD Dec 09, 2016 14:43
[2016-12-09 16:00] VITALS: BP 132/63; PULSE 56; RESP 16; TEMP 95.3; O2SAT 97
[2016-12-09 20:00] VITALS: BP 118/52; PULSE 75; RESP 20; TEMP 98.5; O2SAT 98
[2016-12-09] MEDS: MULTIVITAMIN INJ 10 ML, FOLIC ACID INJ 1 MG, INSULIN HUMAN REGULAR INJ 40 UNITS in AMIN... IV-CENTRAL SCH (21:16)
[2016-12-09] MEDS: ATORVASTATIN 40 MG TAB PO SCH (21:17)
[2016-12-09] MEDS: TEMAZEPAM 7.5 MG CAP PO PRN (23:50)
[2016-12-10] VITALS (8 sets, daily range): BP systolic 110–135; BP diastolic 52–68; PULSE 74–90; RESP 14–22; TEMP 95.9–97; O2SAT 96–100
[2016-12-10] MEDS: INSULIN ASPART SUPPLEMENTAL SCALE SQ SCH ×4 (06:12→21:00)
[2016-12-10] MEDS: SODIUM CHLORIDE 0.9% FLUSH 5 ML FLUSH IVF SCH (09:00)
[2016-12-10] MEDS: CETIRIZINE HCL 10 MG TAB PO SCH (10:07)
[2016-12-10] MEDS: DILTIAZEM-CD 120 MG CAP ER PO SCH (10:07)
[2016-12-10] MEDS: APIXABAN 5 MG TABLET PO SCH ×2 (10:08→21:14)
[2016-12-10] MEDS: FUROSEMIDE 20 MG TAB PO SCH ×2 (10:08→17:40)
[2016-12-10] MEDS: PANTOPRAZOLE SOD 40 MG DELAYED RELEASE TAB PO SCH ×2 (10:08→21:14)
[2016-12-10] MEDS: BUDESONIDE-FORMOTEROL 160/4.5 MCG INHALER INH SCH ×2 (10:10→21:14)
[2016-12-10] MEDS: SPIRIVA RESPIMAT INH SCH (10:10)
--- NOTE | 2016-12-10 11:59 | HHI.PR ---
Subjective Remarks Follow-up diabetes mellitus. He has no new complaints. Denies dizziness and weakness. He has been out of bed. He is happy that the new hardware is not causing any leak. Discussed with RN Objective Vitals Vital Signs Date Time Temp Pulse Resp B/P Pulse Ox O2 Delivery O2 Flow Rate FiO2 12/10/16 09:05 96 Nasal Cannula 2.00 12/10/16 08:00 97.0 78 14 123/58 96 12/10/16 04:00 96.0 74 20 110/53 100 12/10/16 00:00 95.9 84 20 135/56 99 12/09/16 20:00 98.5 75 20 118/52 98 12/09/16 16:00 95.3 56 16 132/63 97 12/09/16 16:00 Nasal Cannula 2.00 21 12/09/16 12:06 Nasal Cannula 2.00 21 12/09/16 12:00 98.7 98 17 130/60 98 I/O 12/09/16 12/09/16 12/09/16 12/10/16 12/10/16 12/10/16 07:00 15:00 23:00 07:00 15:00 23:00 Intake Total 1603 ml 876 ml 1472 ml 240 ml Output Total 1000 ml 800 ml 900 ml Balance 603 ml 76 ml 1472 ml -660 ml Intake Oral 360 ml 200 ml 960 ml 240 ml TPN/PPN 1243 ml 676 ml 512 ml Output Urine Total 800 ml 900 ml Drainage Total 1000 ml # Bowel Movements 2 Result Diagram: 12/08/16 0545 12/08/16 0545 Objective Remarks General: No acute distress. Well-developed and well-nourished Skin: No lesions no rash Neck: No JVD Heart: Regular rate and rhythm. No murmur. Lungs: Clear to auscultation bilaterally. No wheezes, rales, or rhonchi. Breathing is nonlabored. Abdomen: Soft, ostomy bag in place. Extremities: No lower extremity edema. Psych: Alert and oriented. Procedures 11/05/2016 Symptomatic large supraumbilical hernia. Bladder cancer requiring radical cystectomy. 11/08/2016 1. Radical cystoprostatectomy with ileal conduit. 2. Bilateral pelvic lymph node dissection. Right IJ central line A/P Problem List: (1) Acute exacerbation of chronic obstructive pulmonary disease (COPD) ICD Code: J44.1 Status: Resolved (2) Bladder cancer ICD Code: C67.9 Status: Chronic (3) HTN (hypertension) ICD Code: I10 Status: Chronic (4) Atrial flutter ICD Code: I48.92 Status: Chronic (5) Insomnia ICD Code: G47.00 Status: Acute Assessment and Plan 1. Bladder cancer: Status post radical cystoprostatectomy with ileal conduit. Patient developed postoperative ileus, enterocutaneous fistula. Appreciate general surgery and urology recommendations. Will likely need definitive surgical repair in 6-8 weeks. Surgery and urology are recommending that the patient remain inpatient secondary to the complexity of his wounds, fistula. 2. Ileus versus partial small bowel obstruction: Improved. Tolerating full liquids. Continue TPN. 3. Acute exacerbation of COPD: Resolved. Continue supplemental oxygen. Status post treatment with Levaquin. Continue bronchodilators. 4. Enterocutaneous fistula: Continue wound care. 5. Atrial flutter with RVR: Stable. Continue oral Cardizem and apixaban. 6. Hypertension: Continue Cardizem, Lasix. 7. Anemia secondary to acute blood loss: Status post transfusion. Hemoglobin improved. 8. Leukocytosis: Monitor labs. Completed course of Augmentin. 9. Fluid overload: Continue Lasix. 10. Hyperkalemia: Resolved. 11. Mild hyponatremia: Asymptomatic. Monitor labs. 12. Hyperglycemia secondary to TPN: Patient has history of borderline diabetes. A1c is 6.4. Continue sliding scale insulin coverage and regular insulin in TPN 13. Deconditioning: Continue physical therapy. 14. DVT prophylaxis: Eliquis. Discharge Planning Per general surgery and urology, patient is to remain as inpatient until wound healing has progressed, which may take weeks due to the complexity of the wound. Navi Moneral MD Dec 10, 2016 11:58 Fluid overload - Continue Lasix FEN. Ct TPN and diet Hyperkalemia-resolved Hyponatremia-could be from hypervolemia on Lasix. Asymptomatic Hyperglycemia secondary to TPN hx borderline DM. Follow-up A1c is 0.4. Added 40 units units regular insulin per TPN bag and ct high dose sliding scale, We' ll adjust insulin dose per glycemic trends. Hypoglycemic protocol. Improving hyperglycemia Deconditioning. Continue physical therapy, out of bed , consult case management for discharge to [facility] which declined pt DVT prophylaxis eliquis Discharge Planning Dc to [place] when cleared by general surgery Navi Monreal MD Dec 10, 2016 11:58
[2016-12-10] MEDS: ATORVASTATIN 40 MG TAB PO SCH (21:14)
[2016-12-10] MEDS: FAT EMULSION 20% INJ 250 ML (Twice weekly over 8 hours) IV-CENTRAL SCH (21:14)
[2016-12-10] MEDS: MULTIVITAMIN INJ 10 ML, FOLIC ACID INJ 1 MG, INSULIN HUMAN REGULAR INJ 40 UNITS in AMIN... IV-CENTRAL SCH (21:14)
[2016-12-11] VITALS: BP 128/70; PULSE 88; RESP 18; TEMP 97.4; O2SAT 96
[2016-12-11] MEDS: oxyCODONE/ACETAMINOPHEN 5 MG/325 MG TAB PO PRN ×2 (00:18→23:29)
[2016-12-11] MEDS: INSULIN ASPART SUPPLEMENTAL SCALE SQ SCH ×4 (05:44→22:06)
[2016-12-11] MEDS: PANTOPRAZOLE SOD 40 MG DELAYED RELEASE TAB PO SCH ×2 (08:24→22:00)
[2016-12-11] MEDS: DILTIAZEM-CD 120 MG CAP ER PO SCH (08:24)
[2016-12-11] MEDS: APIXABAN 5 MG TABLET PO SCH ×2 (08:24→22:00)
[2016-12-11] MEDS: CETIRIZINE HCL 10 MG TAB PO SCH (08:24)
[2016-12-11] MEDS: FUROSEMIDE 20 MG TAB PO SCH ×2 (08:24→16:19)
[2016-12-11] MEDS: BUDESONIDE-FORMOTEROL 160/4.5 MCG INHALER INH SCH ×2 (08:27→21:59)
[2016-12-11] MEDS: SPIRIVA RESPIMAT INH SCH (08:27)
[2016-12-11] MEDS: SODIUM CHLORIDE 0.9% FLUSH 5 ML FLUSH IVF SCH (08:33)
[2016-12-11 09:05] VITALS: BP 123/55; PULSE 76; RESP 20; TEMP 97.8; O2SAT 98
--- NOTE | 2016-12-11 11:05 | HHI.PR ---
Subjective Remarks Follow-up enterocutaneous fistula. States he is doing okay passing gas. Out of bed to chair ambulating. Discussed with RN Objective Vitals Vital Signs Date Time Temp Pulse Resp B/P Pulse Ox O2 Delivery O2 Flow Rate FiO2 12/11/16 09:05 97.8 76 20 123/55 98 12/11/16 08:24 Nasal Cannula 2.00 12/11/16 00:00 97.4 88 18 128/70 96 12/10/16 20:00 96.0 90 20 130/68 97 12/10/16 18:18 98 21 12/10/16 16:00 96.0 87 22 125/62 98 12/10/16 11:50 96.7 80 16 117/52 98 I/O 12/10/16 12/10/16 12/10/16 12/11/16 12/11/16 12/11/16 07:00 15:00 23:00 07:00 15:00 23:00 Intake Total 240 ml 617 ml 220 ml Output Total 900 ml 1000 ml 1700 ml Balance -660 ml -383 ml -1480 ml Intake Oral 240 ml 420 ml 220 ml IV Total 197 ml Output Urine Total 900 ml 1000 ml 1700 ml # Bowel Movements 0 0 0 Result Diagram: 12/08/16 0545 12/08/16 0545 Imaging Last Impressions Chest X-Ray 11/19/16 0000 Signed Impressions: Service Date/Time: Saturday, November 19, 2016 13:34 - CONCLUSION: 1. No placement of right central venous line with no evidence of pneumothorax. 2. Interval placement of nasogastric tube. 3. Patchy opacity remains at the lung bases. Orion Aguilera MD Abdomen/Pelvis CT 11/19/16 0000 Signed Impressions: Service Date/Time: Saturday, November 19, 2016 20:12 - CONCLUSION: 1. Status post cystectomy with an ileal loop in the right lower quadrant. Ureteral stents are seen through the ileal loop bilaterally. No hydronephrosis is seen. 2. 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 This appearance is completely unchanged. There is an adjacent segment of small bowel herniating through this region. This is also unchanged from the prior exam. 3. Bibasilar areas of consolidation or atelectasis. 4. Status post cystectomy and suspected prostatectomy. 5. Evidence of prior granulomatous exposure. Harris Yusuf MD Central Venous Line 11/14/16 0000 Signed Impressions: Service Date/Time: Monday, November 14, 2016 16:07 - CONCLUSION: Uncomplicated line placement as above. Mando Rodriguez MD CT Angiography 11/12/16 0000 Signed Impressions: Service Date/Time: Saturday, November 12, 2016 04:09 - CONCLUSION: 1. No evidence for pulmonary embolism. 2. Abnormal patchy areas of pulmonary consolidation are noted as described above. Small pleural effusions. 3. Emphysema. Timmy Jacobson MD Lower Extremity Ultrasound 11/11/16 0000 Signed Impressions: Service Date/Time: Friday, November 11, 2016 10:03 - CONCLUSION: Negative exam with no evidence of deep venous thrombosis. Orion Aguilera MD Abdomen X-Ray 11/11/16 0000 Signed Impressions: Service Date/Time: Friday, November 11, 2016 17:02 - CONCLUSION: 1. Air distention of small bowel loops in the left upper abdominal quadrant with decompression of the visualized portions of the colon. Pattern is concerning for possible early small bowel obstruction versus focal hypodynamic ileus. This study will serve as a baseline for followup imaging. 2. Postsurgical changes characteristic of ileal conduit with bilateral double-J stents terminating in the right lower abdominal quadrant. Mando Rodriguez MD Objective Remarks General: No acute distress. Well-developed and well-nourished Skin: No lesions no rash Neck: No JVD Heart: Regular rate and rhythm. No murmur. Lungs: Clear to auscultation bilaterally. No wheezes, rales, or rhonchi. Breathing is nonlabored. Abdomen: Soft, ostomy bag in place. Extremities: No lower extremity edema. Psych: Alert and oriented. Procedures 11/05/2016 Symptomatic large supraumbilical hernia. Bladder cancer requiring radical cystectomy. 11/08/2016 1. Radical cystoprostatectomy with ileal conduit. 2. Bilateral pelvic lymph node dissection. Right IJ central line A/P Problem List: (1) Acute exacerbation of chronic obstructive pulmonary disease (COPD) ICD Code: J44.1 Status: Resolved (2) Bladder cancer ICD Code: C67.9 Status: Chronic (3) HTN (hypertension) ICD Code: I10 Status: Chronic (4) Atrial flutter ICD Code: I48.92 Status: Chronic (5) Insomnia ICD Code: G47.00 Status: Acute Assessment and Plan 1. Bladder cancer: Status post radical cystoprostatectomy with ileal conduit. Patient developed postoperative ileus, enterocutaneous fistula. Appreciate general surgery and urology recommendations. Will likely need definitive surgical repair in 4 weeks. Surgery and urology are recommending that the patient remain inpatient secondary to the complexity of his wounds, fistula. 2. Ileus versus partial small bowel obstruction: Improved. Tolerating full liquids. Continue TPN. 3. Acute exacerbation of COPD: Resolved. Continue supplemental oxygen. Status post treatment with Levaquin. Continue bronchodilators. 4. Enterocutaneous fistula: Continue wound care. 5. Atrial flutter with RVR: Stable. Continue oral Cardizem and apixaban. 6. Hypertension: Continue Cardizem, Lasix. 7. Anemia secondary to acute blood loss: Status post transfusion. Hemoglobin improved. 8. Leukocytosis: Monitor labs. Completed course of Augmentin. 9. Fluid overload: Continue Lasix. 10. Hyperkalemia: Resolved. 11. Mild hyponatremia: Asymptomatic. Monitor labs. 12. Hyperglycemia secondary to TPN: Patient has history of borderline diabetes. A1c is 6.4. Continue sliding scale insulin coverage and regular insulin in TPN 13. Deconditioning: Continue physical therapy. 14. DVT prophylaxis: Eliquis. Discharge Planning Per general surgery and urology, patient is to remain as inpatient until wound healing has progressed, which may take weeks due to the complexity of the wound. Navi Monreal MD Dec 11, 2016 11:05
--- NOTE | 2016-12-11 12:01 | HHI.PR ---
Subjective Subjective Notes Doing well No complaints Happy the current appliance has help up for a week Objective Vitals/I&O Vital Signs Date Time Temp Pulse Resp B/P Pulse Ox O2 Delivery O2 Flow Rate FiO2 12/11/16 09:05 97.8 76 20 123/55 98 12/11/16 08:24 Nasal Cannula 2.00 12/10/16 18:18 21 Cardiovascular: Regular Lungs: Clear Abdomen: Other (see below ) Extremities: No edema Narrative Exam Abd: urostomy in place with drainage bag---stoma dark; large midline fistula x2 with stool output; 1 smaller fistula with no output A/P Assessment and Plan 70 year old male s/p radical cystectomy and ileo conduit (by Urology); s/p UHR ( by General Surgery) -Continue wound management bag for wound drainage and connect to wound draining bag; Appreciate Wound Care team----no leaks all week -on Fulls + Ensure -Encourage mobilization ---OOB daily and ambulate in room and hallway -Patient should remain in the acute hospital setting for now due to complexity of wounds -Will follow PRN I certify and attest that I personally examined this patient with Ms. Reyes who documented our visit in the EMR and entered orders under my direct supervision. I reviewed the care plan with the nursing staff and family if present. Annika Enamorado MD, FACS Dec 11, 2016 12:01 Yrn Melgar MD Dec 24, 2016 14:31
[2016-12-11 12:47] VITALS: BP 129/53; PULSE 80; RESP 20; TEMP 96.3; O2SAT 96
[2016-12-11] MEDS: NEOMYCIN/POLYMYXIN/BACITRACIN OINT 15 GM TUBE TOPICAL SCH (13:46)
--- NOTE | 2016-12-11 13:48 | HHI.PR ---
Subjective Remarks no acute issues. had several small streaks of stool per rectum earlier today. Passing flatus. Appears only urine in ostomy bag. Objective Vital Signs Vital Signs Date Time Temp Pulse Resp B/P Pulse Ox O2 Delivery O2 Flow Rate FiO2 12/11/16 12:47 96.3 80 20 129/53 96 12/11/16 09:05 97.8 76 20 123/55 98 12/11/16 08:24 Nasal Cannula 2.00 12/11/16 00:00 97.4 88 18 128/70 96 12/10/16 20:00 96.0 90 20 130/68 97 12/10/16 18:18 98 21 12/10/16 16:00 96.0 87 22 125/62 98 I/O 12/10/16 12/10/16 12/10/16 12/11/16 12/11/16 12/11/16 07:00 15:00 23:00 07:00 15:00 23:00 Intake Total 240 ml 617 ml 220 ml 1094 ml Output Total 900 ml 1000 ml 1700 ml 1350 ml Balance -660 ml -383 ml -1480 ml -256 ml Intake Oral 240 ml 420 ml 220 ml IV Total 197 ml TPN/PPN 1094 ml Output Urine Total 900 ml 1000 ml 1700 ml 1350 ml # Bowel Movements 0 0 0 Result Diagram: 12/08/16 0545 12/08/16 0545 Objective Remarks NAD. A/O x 3 RRR Respiration Nonlabored abd soft, no peritoneal signs. colostomy bag in place, no stool seen. Appears only urine draining from Ileal Conduit. Ileal conduit more pink, viable. Appears tip of conduit has sloughed off. stents in place. Ext NT. No c/c/e Procedures Radical Cystoprostatectomy, Pelvic LN dissection, Ileal Conduit 11/05/2016 Assessment and Plan Assessment and Plan s/p Radical Cystoprostatectomy, Ileal Conduit with post operative ileus, A- flutter with RVR, enterocutaneous fistula -continue TPN, full diet. Fistula output decreasing. -PT/OT -Will likely need definitive surgical repair in 4 weeks at earliest. -Ureteral stents can be removed at next colostomy bag change. -He should remain as an inpatient at this time. Duncan Huff MD Dec 11, 2016 13:48
[2016-12-11 16:03] VITALS: BP_SYST 118; BP_SYST 68; BP_DIAS 53; PULSE 74; RESP 20; TEMP 96.8; O2SAT 96
[2016-12-11 20:00] VITALS: BP 130/60; PULSE 92; RESP 20; TEMP 98; O2SAT 97
[2016-12-11] MEDS: MULTIVITAMIN INJ 10 ML, FOLIC ACID INJ 1 MG, INSULIN HUMAN REGULAR INJ 40 UNITS in AMIN... IV-CENTRAL SCH (22:00)
[2016-12-11] MEDS: ATORVASTATIN 40 MG TAB PO SCH (22:01)
[2016-12-11] MEDS: TEMAZEPAM 7.5 MG CAP PO PRN (23:29)
[2016-12-12] VITALS (7 sets, daily range): BP systolic 119–134; BP diastolic 51–64; PULSE 81–92; RESP 16–20; TEMP 95.2–98; O2SAT 96–98
[2016-12-12] MEDS: INSULIN ASPART SUPPLEMENTAL SCALE SQ SCH ×4 (05:17→21:00)
[2016-12-12] MEDS: oxyCODONE/ACETAMINOPHEN 5 MG/325 MG TAB PO PRN ×2 (05:18→22:17)
[2016-12-12] MEDS: PANTOPRAZOLE SOD 40 MG DELAYED RELEASE TAB PO SCH ×2 (08:15→20:12)
[2016-12-12] MEDS: CETIRIZINE HCL 10 MG TAB PO SCH (08:15)
[2016-12-12] MEDS: NEOMYCIN/POLYMYXIN/BACITRACIN OINT 15 GM TUBE TOPICAL SCH (08:16)
[2016-12-12] MEDS: APIXABAN 5 MG TABLET PO SCH ×2 (08:16→20:13)
[2016-12-12] MEDS: FUROSEMIDE 20 MG TAB PO SCH ×2 (08:16→17:37)
[2016-12-12] MEDS: DILTIAZEM-CD 120 MG CAP ER PO SCH (08:16)
[2016-12-12] MEDS: SPIRIVA RESPIMAT INH SCH (08:17)
[2016-12-12] MEDS: SODIUM CHLORIDE 0.9% FLUSH 5 ML FLUSH IVF SCH (08:19)
[2016-12-12] MEDS: BUDESONIDE-FORMOTEROL 160/4.5 MCG INHALER INH SCH ×2 (09:00→22:16)
--- NOTE | 2016-12-12 14:38 | HHI.PR ---
Subjective Remarks F/u DM and overload. Doing ok ambulating hallway dw RN Objective Vitals Vital Signs Date Time Temp Pulse Resp B/P Pulse Ox O2 Delivery O2 Flow Rate FiO2 12/12/16 12:00 95.5 81 17 134/60 97 12/12/16 08:00 95.2 84 16 119/52 96 12/12/16 04:43 97.2 90 18 122/64 96 12/12/16 00:29 18 12/12/16 00:00 98.0 92 20 130/60 97 12/11/16 20:40 Room Air 12/11/16 20:00 98.0 92 20 130/60 97 12/11/16 16:03 96.8 74 20 118/53 96 I/O 12/11/16 12/11/16 12/11/16 12/12/16 12/12/16 12/12/16 07:00 15:00 23:00 07:00 15:00 23:00 Intake Total 220 ml 1094 ml 480 ml 1799 ml 500 ml Output Total 1700 ml 1750 ml 500 ml 1600 ml Balance -1480 ml -656 ml -20 ml 199 ml 500 ml Intake Oral 220 ml 480 ml 480 ml 500 ml IV Total 1319 ml TPN/PPN 1094 ml Output Urine Total 1700 ml 1350 ml 500 ml Drainage Total 400 ml 1600 ml # Bowel Movements 0 0 Result Diagram: 12/08/16 0545 12/08/16 0545 Imaging Last Impressions Chest X-Ray 11/19/16 0000 Signed Impressions: Service Date/Time: Saturday, November 19, 2016 13:34 - CONCLUSION: 1. No placement of right central venous line with no evidence of pneumothorax. 2. Interval placement of nasogastric tube. 3. Patchy opacity remains at the lung bases. Orion Aguilera MD Abdomen/Pelvis CT 11/19/16 0000 Signed Impressions: Service Date/Time: Saturday, November 19, 2016 20:12 - CONCLUSION: 1. Status post cystectomy with an ileal loop in the right lower quadrant. Ureteral stents are seen through the ileal loop bilaterally. No hydronephrosis is seen. 2. 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 This appearance is completely unchanged. There is an adjacent segment of small bowel herniating through this region. This is also unchanged from the prior exam. 3. Bibasilar areas of consolidation or atelectasis. 4. Status post cystectomy and suspected prostatectomy. 5. Evidence of prior granulomatous exposure. Harris Yusuf MD Central Venous Line 11/14/16 0000 Signed Impressions: Service Date/Time: Monday, November 14, 2016 16:07 - CONCLUSION: Uncomplicated line placement as above. Mando Rodriguez MD CT Angiography 11/12/16 0000 Signed Impressions: Service Date/Time: Saturday, November 12, 2016 04:09 - CONCLUSION: 1. No evidence for pulmonary embolism. 2. Abnormal patchy areas of pulmonary consolidation are noted as described above. Small pleural effusions. 3. Emphysema. Timmy Jacobson MD Lower Extremity Ultrasound 11/11/16 0000 Signed Impressions: Service Date/Time: Friday, November 11, 2016 10:03 - CONCLUSION: Negative exam with no evidence of deep venous thrombosis. Orion Aguilera MD Abdomen X-Ray 11/11/16 0000 Signed Impressions: Service Date/Time: Friday, November 11, 2016 17:02 - CONCLUSION: 1. Air distention of small bowel loops in the left upper abdominal quadrant with decompression of the visualized portions of the colon. Pattern is concerning for possible early small bowel obstruction versus focal hypodynamic ileus. This study will serve as a baseline for followup imaging. 2. Postsurgical changes characteristic of ileal conduit with bilateral double-J stents terminating in the right lower abdominal quadrant. Mando Rodriguez MD Objective Remarks General: No acute distress. Well-developed and well-nourished Skin: No lesions no rash Neck: No JVD Heart: Regular rate and rhythm. No murmur. Lungs: Clear to auscultation bilaterally. No wheezes, rales, or rhonchi. Breathing is nonlabored. Abdomen: Soft, ostomy bag in place. Extremities: No lower extremity edema or cyanosis Psych: Alert and oriented. Procedures 11/05/2016 Symptomatic large supraumbilical hernia. Bladder cancer requiring radical cystectomy. 11/08/2016 1. Radical cystoprostatectomy with ileal conduit. 2. Bilateral pelvic lymph node dissection. Right IJ central line A/P Problem List: (1) Acute exacerbation of chronic obstructive pulmonary disease (COPD) ICD Code: J44.1 Status: Resolved (2) Bladder cancer ICD Code: C67.9 Status: Chronic (3) HTN (hypertension) ICD Code: I10 Status: Chronic (4) Atrial flutter ICD Code: I48.92 Status: Chronic (5) Insomnia ICD Code: G47.00 Status: Acute Assessment and Plan 1. Bladder cancer: Status post radical cystoprostatectomy with ileal conduit. Patient developed postoperative ileus, enterocutaneous fistula. Appreciate general surgery and urology recommendations. Will likely need definitive surgical repair in 4 weeks. Surgery and urology are recommending that the patient remain inpatient secondary to the complexity of his wounds and fistula. 2. Ileus versus partial small bowel obstruction: Improved. Tolerating full liquids. Continue TPN. 3. Acute exacerbation of COPD: Resolved. Continue supplemental oxygen. Status post treatment with Levaquin. Continue bronchodilators. 4. Enterocutaneous fistula: Continue wound care. 5. Atrial flutter with RVR: Stable. Continue oral Cardizem and apixaban. 6. Hypertension: Continue Cardizem, Lasix. 7. Anemia secondary to acute blood loss: Status post transfusion. Hemoglobin improved. 8. Leukocytosis: Monitor labs. Completed course of Augmentin. 9. Fluid overload: Continue Lasix monitor renal function. 10. Hyperkalemia: Resolved. 11. Mild hyponatremia: Asymptomatic. Monitor labs. 12. Hyperglycemia secondary to TPN: Patient has history of borderline diabetes. A1c is 6.4. Continue sliding scale insulin coverage and regular insulin in TPN 13. Deconditioning: Continue physical therapy. 14. DVT prophylaxis: Eliquis. Discharge Planning Per general surgery and urology, patient is to remain as inpatient until wound healing has progressed, which may take weeks due to the complexity of the wound. Navi Monreal MD Dec 12, 2016 14:38
[2016-12-12] MEDS: ATORVASTATIN 40 MG TAB PO SCH (20:13)
[2016-12-12] MEDS: MULTIVITAMIN INJ 10 ML, FOLIC ACID INJ 1 MG, INSULIN HUMAN REGULAR INJ 40 UNITS in AMIN... IV-CENTRAL SCH (20:13)
[2016-12-12] MEDS: TEMAZEPAM 7.5 MG CAP PO PRN (22:16)
[2016-12-13] VITALS (9 sets, daily range): BP systolic 116–138; BP diastolic 58–67; PULSE 80–101; RESP 16–20; TEMP 95.5–98.6; O2SAT 95–99
[2016-12-13] MEDS: INSULIN ASPART SUPPLEMENTAL SCALE SQ SCH ×4 (05:07→21:58)
[2016-12-13] MEDS: oxyCODONE/ACETAMINOPHEN 5 MG/325 MG TAB PO PRN ×2 (05:07→21:58)
[2016-12-13 06:53] LABS: AUTOMATED NEUTROPHIL # 4.3 TH/MM3 (1.8-7.7); BASOPHIL # 0.1 TH/MM3 (0-0.2); BASOPHIL % 1.1 % (0.0-2.0); EOSINOPHIL # 0.2 TH/MM3 (0-0.4); HEMATOCRIT 24.2 % (39.0-51.0); LYMPHOCYTE # 1.4 TH/MM3 (1.0-4.8); MEAN CELL VOLUME 88.6 FL (80.0-100.0); MEAN CORPUSCULAR HEMOGLOBIN 29.8 PG (27.0-34.0); MEAN CORPUSCULAR HGB CONC 33.7 % (32.0-36.0); MONO % 9.2 % (0.0-8.0); NEUT % 65.7 % (16.0-70.0); PLATELET COUNT 293 TH/MM3 (150-450); RED BLOOD COUNT 2.74 MIL/MM3 (4.50-5.90); RED CELL DISTRIBUTION WIDTH 15.1 % (11.6-17.2); WHITE BLOOD COUNT 6.5 TH/MM3 (4.0-11.0)
[2016-12-13 07:09] LABS: HEMO FLAGS AUTO DIFF
[2016-12-13 07:36] LABS: ANION GAP 6 MEQ/L (5-15); AST (GOT) 14 U/L (15-37); BICARBONATE 33.3 MEQ/L (21.0-32.0); BLOOD UREA NITROGEN 17 MG/DL (7-18); CHLORIDE 97 MEQ/L (98-107); GLOMERULAR FILTRATION RATE 121 ML/MIN (>89); MAGNESIUM 2.1 MG/DL (1.5-2.5); POTASSIUM 3.9 MEQ/L (3.5-5.1); SODIUM (NA) 136 MEQ/L (136-145)
[2016-12-13 07:39] LABS: ALKALINE PHOSPHATASE 72 U/L (45-117); ALT (GPT) 22 U/L (12-78); TOTAL BILIRUBIN ADULT 0.3 MG/DL (0.2-1.0)
[2016-12-13] MEDS: SPIRIVA RESPIMAT INH SCH (09:00)
--- NOTE | 2016-12-13 09:11 | HHI.PR ---
Subjective Remarks had bowel movement this morning. Denies abdominal pain. getting stronger. Objective Vital Signs Vital Signs Date Time Temp Pulse Resp B/P Pulse Ox O2 Delivery O2 Flow Rate FiO2 12/13/16 08:00 95.5 86 20 137/62 98 12/13/16 04:00 95.8 84 18 138/64 99 12/13/16 00:00 97.5 86 18 116/59 95 12/12/16 23:17 16 12/12/16 20:13 Room Air 12/12/16 20:00 95.3 83 18 120/51 98 12/12/16 17:55 97 21 12/12/16 16:00 97.6 84 16 130/59 97 12/12/16 12:00 95.5 81 17 134/60 97 I/O 12/12/16 12/12/16 12/12/16 12/13/16 12/13/16 12/13/16 07:00 15:00 23:00 07:00 15:00 23:00 Intake Total 1799 ml 1430 ml 720 ml 1177 ml Output Total 1600 ml 2000 ml Balance 199 ml 1430 ml -1280 ml 1177 ml Intake Oral 480 ml 500 ml 720 ml 360 ml IV Total 1319 ml 930 ml 817 ml Output Urine Total 800 ml Drainage Total 1600 ml 1200 ml # Bowel Movements 0 Result Diagram: 12/13/16 0620 12/13/16 0620 Objective Remarks NAD. A/O x 3 RRR Respiration Nonlabored abd soft, no peritoneal signs. colostomy bag in place, no stool seen. Appears only urine draining from Ileal Conduit. Ileal conduit pink, viable. Ext NT. No c/c/e Procedures Radical Cystoprostatectomy, Pelvic LN dissection, Ileal Conduit 11/05/2016 Assessment and Plan Assessment and Plan s/p Radical Cystoprostatectomy, Ileal Conduit with post operative ileus, A- flutter with RVR, enterocutaneous fistula -continue TPN, full diet. . -PT/OT -Encouraged by bowel movement, no output from fistula. -Appreciate other services input. Duncan Huff MD Dec 13, 2016 09:11
[2016-12-13] MEDS: DILTIAZEM-CD 120 MG CAP ER PO SCH (09:50)
[2016-12-13] MEDS: FUROSEMIDE 20 MG TAB PO SCH ×2 (09:50→17:30)
[2016-12-13] MEDS: APIXABAN 5 MG TABLET PO SCH ×2 (09:50→20:46)
[2016-12-13] MEDS: PANTOPRAZOLE SOD 40 MG DELAYED RELEASE TAB PO SCH ×2 (09:51→20:46)
[2016-12-13] MEDS: BUDESONIDE-FORMOTEROL 160/4.5 MCG INHALER INH SCH ×2 (09:51→20:46)
[2016-12-13] MEDS: CETIRIZINE HCL 10 MG TAB PO SCH (09:51)
[2016-12-13] MEDS: NEOMYCIN/POLYMYXIN/BACITRACIN OINT 15 GM TUBE TOPICAL SCH (09:51)
[2016-12-13] MEDS: SODIUM CHLORIDE 0.9% FLUSH 5 ML FLUSH IVF SCH (09:51)
[2016-12-13 10:10] LABS: BANDS 3 % (0-6); BASOPHILS 3 % (0-2); EOSINOPHILS 3 % (0-4); MYELOCYTES 2 % (0-0); NEUTROPHIL # MANUAL DIFF 4.7 TH/MM3 (1.8-7.7); POLYS (SEG NEUTROPHILS) 67 % (16-70); WBC DIFF SAMPLE 100
[2016-12-13 10:11] LABS: POLYCHROMASIA 2.5 % (0.0-1.9)
[2016-12-13 10:12] LABS: PLATELET ESTIMATE SMEAR NORMAL (NORMAL); PLATELET MORPHOLOGY NORMAL (NORMAL); SCAN/DIFF FINAL DIFF MANUAL
[2016-12-13] MEDS: RESP: ALBUTEROL 0.63 MG/3 ML NEB (PRN) NEB (10:53)
--- NOTE | 2016-12-13 11:45 | HHI.PR ---
Subjective Remarks F/u EC fistula. BM today. Was SOB and wheezing earlier relieved with neb. Dw RN Objective Vitals Vital Signs Date Time Temp Pulse Resp B/P Pulse Ox O2 Delivery O2 Flow Rate FiO2 12/13/16 10:53 95 Nasal Cannula 3.00 12/13/16 09:52 18 12/13/16 08:00 95.5 86 20 137/62 98 12/13/16 04:00 95.8 84 18 138/64 99 12/13/16 00:00 97.5 86 18 116/59 95 12/12/16 20:13 Room Air 12/12/16 20:00 95.3 83 18 120/51 98 12/12/16 17:55 97 21 12/12/16 16:00 97.6 84 16 130/59 97 12/12/16 12:00 95.5 81 17 134/60 97 I/O 12/12/16 12/12/16 12/12/16 12/13/16 12/13/16 12/13/16 07:00 15:00 23:00 07:00 15:00 23:00 Intake Total 1799 ml 1430 ml 720 ml 1177 ml Output Total 1600 ml 2000 ml Balance 199 ml 1430 ml -1280 ml 1177 ml Intake Oral 480 ml 500 ml 720 ml 360 ml IV Total 1319 ml 930 ml 817 ml Output Urine Total 800 ml Drainage Total 1600 ml 1200 ml # Bowel Movements 0 Result Diagram: 12/13/1620 12/13/16 0620 Objective Remarks General: No acute distress. Well-developed and well-nourished Skin: No lesions no rash Neck: No JVD Heart: Regular rate and rhythm. No murmur. Lungs: Clear to auscultation bilaterally. No wheezes, rales, or rhonchi. Breathing is nonlabored. Abdomen: Soft, ostomy bag in place. Extremities: No lower extremity edema or cyanosis Neuro/Psych: Alert and oriented. Non focal Procedures 11/05/2016 Symptomatic large supraumbilical hernia. Bladder cancer requiring radical cystectomy. 11/08/2016 1. Radical cystoprostatectomy with ileal conduit. 2. Bilateral pelvic lymph node dissection. Right IJ central line A/P Problem List: (1) Acute exacerbation of chronic obstructive pulmonary disease (COPD) ICD Code: J44.1 Status: Resolved (2) Bladder cancer ICD Code: C67.9 Status: Chronic (3) HTN (hypertension) ICD Code: I10 Status: Chronic (4) Atrial flutter ICD Code: I48.92 Status: Chronic (5) Insomnia ICD Code: G47.00 Status: Acute Assessment and Plan 1. Bladder cancer: Status post radical cystoprostatectomy with ileal conduit. Patient developed postoperative ileus, enterocutaneous fistula. Appreciate general surgery and urology recommendations. Will likely need definitive surgical repair in 4 weeks. Surgery and urology are recommending that the patient remain inpatient secondary to the complexity of his wounds and fistula. 2. Ileus versus partial small bowel obstruction: Improved. Tolerating full liquids. Continue TPN. 3. Acute exacerbation of COPD: Was short of breath with wheezing earlier today currently improved. Scheduled nebulization for 1 day and as needed. Continue supplemental oxygen. Status post treatment with Levaquin. 4. Enterocutaneous fistula: Continue wound care. 5. Atrial flutter with RVR: Stable. Continue oral Cardizem and apixaban. 6. Hypertension: Continue Cardizem, Lasix. 7. Anemia secondary to acute blood loss: Status post transfusion. Hemoglobin improved. 8. Leukocytosis: Monitor labs. Completed course of Augmentin. 9. Fluid overload: Continue Lasix monitor renal function. 10. Hyperkalemia: Resolved. 11. Mild hyponatremia: Asymptomatic. Monitor labs. 12. Hyperglycemia secondary to TPN: Patient has history of borderline diabetes. A1c is 6.4. Continue sliding scale insulin coverage and regular insulin in TPN 13. Deconditioning: Continue physical therapy. 14. DVT prophylaxis: Eliquis. Discharge Planning Per general surgery and urology, patient is to remain as inpatient until wound healing has progressed, which may take weeks due to the complexity of the wound. Navi Monreal MD Dec 13, 2016 11:45
[2016-12-13] MEDS: RESP: ALBUTEROL 2.5 MG/IPRATROPIUM 0.5 MG NEB (SCH) NEB ×3 (12:00→20:39)
[2016-12-13] MEDS: CALCIUM CARBONATE 500 MG CHEWABLE TAB CHEW PRN (14:06)
[2016-12-13] MEDS: MULTIVITAMIN INJ 10 ML, FOLIC ACID INJ 1 MG, INSULIN HUMAN REGULAR INJ 40 UNITS in AMIN... IV-CENTRAL SCH (20:44)
[2016-12-13] MEDS: TEMAZEPAM 7.5 MG CAP PO PRN (20:45)
[2016-12-13] MEDS: ATORVASTATIN 40 MG TAB PO SCH (20:46)
[2016-12-14 03:57] VITALS: BP 126/58; PULSE 73; RESP 18; TEMP 98.6; O2SAT 96
[2016-12-14] MEDS: INSULIN ASPART SUPPLEMENTAL SCALE SQ SCH ×4 (05:54→22:55)
[2016-12-14 06:24] LABS: HEMATOCRIT 24.9 % (39.0-51.0)
[2016-12-14 08:00] VITALS: BP 135/68; PULSE 54; RESP 16; TEMP 98; O2SAT 97
[2016-12-14] MEDS: RESP: ALBUTEROL 2.5 MG/IPRATROPIUM 0.5 MG NEB (SCH) NEB ×2 (08:00→11:30)
[2016-12-14 08:03] VITALS: O2SAT 96
[2016-12-14] MEDS: FUROSEMIDE 20 MG TAB PO SCH ×2 (08:34→18:24)
[2016-12-14] MEDS: CETIRIZINE HCL 10 MG TAB PO SCH (08:34)
[2016-12-14] MEDS: PANTOPRAZOLE SOD 40 MG DELAYED RELEASE TAB PO SCH ×2 (08:34→22:17)
[2016-12-14] MEDS: APIXABAN 5 MG TABLET PO SCH ×2 (08:34→22:17)
[2016-12-14] MEDS: DILTIAZEM-CD 120 MG CAP ER PO SCH (08:35)
[2016-12-14] MEDS: SODIUM CHLORIDE 0.9% FLUSH 5 ML FLUSH IVF SCH (08:35)
[2016-12-14] MEDS: SPIRIVA RESPIMAT INH SCH (08:36)
[2016-12-14] MEDS: BUDESONIDE-FORMOTEROL 160/4.5 MCG INHALER INH SCH ×2 (08:36→22:18)
[2016-12-14] MEDS: NEOMYCIN/POLYMYXIN/BACITRACIN OINT 15 GM TUBE TOPICAL SCH (08:37)
[2016-12-14] MEDS: CALCIUM CARBONATE 500 MG CHEWABLE TAB CHEW PRN (10:19)
--- NOTE | 2016-12-14 10:30 | HHI.PR ---
Subjective Remarks Follow-up enteric cutaneous fistula. No drainage from the ostomy exactly urine. Having bowel movements the past 2 days. Complains of crampy abdominal pain. No nausea or vomiting. Discussed with RN. Objective Vitals Vital Signs Date Time Temp Pulse Resp B/P Pulse Ox O2 Delivery O2 Flow Rate FiO2 12/14/16 09:15 Nasal Cannula 2.00 12/14/16 08:03 96 Nasal Cannula 2.00 12/14/16 08:00 98.0 54 16 135/68 97 12/14/16 03:57 98.6 73 18 126/58 96 12/13/16 23:50 98.6 92 18 126/58 97 12/13/16 20:45 Nasal Cannula 2.00 12/13/16 20:41 99 Nasal Cannula 3.00 12/13/16 20:00 101 12/13/16 20:00 97.6 80 18 133/62 98 12/13/16 16:00 95.9 94 20 134/67 98 12/13/16 12:00 95.5 12/13/16 12:00 96.0 92 16 134/60 98 12/13/16 10:53 95 Nasal Cannula 3.00 I/O 12/13/16 12/13/16 12/13/16 12/14/16 12/14/16 12/14/16 07:00 15:00 23:00 07:00 15:00 23:00 Intake Total 1177 ml 1223 ml 763 ml 810 ml Output Total 1800 ml 1400 ml 700 ml Balance 1177 ml -577 ml -637 ml 110 ml Intake Oral 360 ml 600 ml 240 ml 240 ml IV Total 817 ml 623 ml TPN/PPN 523 ml 570 ml Output Urine Total 1800 ml 1400 ml 700 ml # Bowel Movements 1 0 0 Result Diagram: 12/14/16 0540 12/13/16 0620 Objective Remarks General: No acute distress. Well-developed and well-nourished Skin: No lesions no rash Neck: No JVD Heart: Regular rate and rhythm. No murmur. Lungs: Clear to auscultation bilaterally. No wheezes, rales, or rhonchi. Breathing is nonlabored. Abdomen: Soft, ostomy bag in place. Nontender normal active bowel sounds Extremities: No lower extremity edema or cyanosis Neuro/Psych: Alert and oriented. Non focal Procedures 11/05/2016 Symptomatic large supraumbilical hernia. Bladder cancer requiring radical cystectomy. 11/08/2016 1. Radical cystoprostatectomy with ileal conduit. 2. Bilateral pelvic lymph node dissection. Right IJ central line A/P Problem List: (1) Acute exacerbation of chronic obstructive pulmonary disease (COPD) ICD Code: J44.1 Status: Resolved (2) Bladder cancer ICD Code: C67.9 Status: Chronic (3) HTN (hypertension) ICD Code: I10 Status: Chronic (4) Atrial flutter ICD Code: I48.92 Status: Chronic (5) Insomnia ICD Code: G47.00 Status: Resolved Assessment and Plan 1. Bladder cancer: Status post radical cystoprostatectomy with ileal conduit. Patient developed postoperative ileus, enterocutaneous fistula. Appreciate general surgery and urology recommendations. Will likely need definitive surgical repair in 4 weeks. Surgery and urology are recommending that the patient remain inpatient secondary to the complexity of his wounds and fistula. Continue TPN. 2. Ileus versus partial small bowel obstruction: Resolved patient having bowel movement. Tolerating full liquids. Bentyl as needed 3. Acute exacerbation of COPD: Improved. Scheduled nebulization until today and as needed. Continue supplemental oxygen. Status post treatment with Levaquin. 4. Enterocutaneous fistula: Continue wound care. 5. Atrial flutter with RVR: Stable. Continue oral Cardizem and apixaban. 6. Hypertension: Continue Cardizem, Lasix. 7. Anemia secondary to acute blood loss: Status post transfusion. Hemoglobin improved. 8. Leukocytosis: Monitor labs. Completed course of Augmentin. 9. Fluid overload: Continue Lasix monitor renal function. 10. Hyperkalemia: Resolved. 11. Mild hyponatremia: Asymptomatic. Monitor labs. 12. Hyperglycemia secondary to TPN: Patient has history of borderline diabetes. A1c is 6.4. Continue sliding scale insulin coverage and regular insulin in TPN 13. Deconditioning: Continue physical therapy. 14. DVT prophylaxis: Eliquis. Discharge Planning Per general surgery and urology, patient is to remain as inpatient until wound healing has progressed, which may take weeks due to the complexity of the wound. Navi Monreal MD Dec 14, 2016 10:30
[2016-12-14] MEDS: DICYCLOMINE HCL 20 MG TAB PO PRN (11:26)
[2016-12-14 12:00] VITALS: BP 144/58; PULSE 89; RESP 17; TEMP 96; O2SAT 97
[2016-12-14 16:00] VITALS: BP 119/71; PULSE 79; RESP 18; TEMP 97.1; O2SAT 95
[2016-12-14 20:00] VITALS: BP 122/57; PULSE 108; PULSE 98; RESP 22; TEMP 97.8; O2SAT 97
[2016-12-14] MEDS: ATORVASTATIN 40 MG TAB PO SCH (22:17)
[2016-12-14] MEDS: FAT EMULSION 20% INJ 250 ML (Twice weekly over 8 hours) IV-CENTRAL SCH (22:17)
[2016-12-14] MEDS: TEMAZEPAM 7.5 MG CAP PO PRN (22:17)
[2016-12-14] MEDS: MULTIVITAMIN INJ 10 ML, FOLIC ACID INJ 1 MG, INSULIN HUMAN REGULAR INJ 40 UNITS in AMIN... IV-CENTRAL SCH (22:18)
[2016-12-14] MEDS: oxyCODONE/ACETAMINOPHEN 5 MG/325 MG TAB PO PRN (22:55)
[2016-12-15] VITALS (9 sets, daily range): BP systolic 114–132; BP diastolic 45–65; PULSE 70–102; RESP 16–20; TEMP 96.6–97.9; O2SAT 96–100
[2016-12-15] MEDS: INSULIN ASPART SUPPLEMENTAL SCALE SQ SCH ×4 (05:20→21:00)
[2016-12-15] MEDS: DICYCLOMINE HCL 20 MG TAB PO PRN (07:20)
[2016-12-15] MEDS: SPIRIVA RESPIMAT INH SCH (09:00)
[2016-12-15] MEDS: DILTIAZEM-CD 120 MG CAP ER PO SCH (09:05)
[2016-12-15] MEDS: PANTOPRAZOLE SOD 40 MG DELAYED RELEASE TAB PO SCH ×2 (09:05→21:17)
[2016-12-15] MEDS: APIXABAN 5 MG TABLET PO SCH ×2 (09:06→21:17)
[2016-12-15] MEDS: FUROSEMIDE 20 MG TAB PO SCH ×2 (09:06→16:35)
[2016-12-15] MEDS: CETIRIZINE HCL 10 MG TAB PO SCH (09:06)
[2016-12-15] MEDS: BUDESONIDE-FORMOTEROL 160/4.5 MCG INHALER INH SCH ×2 (09:08→21:00)
[2016-12-15] MEDS: NEOMYCIN/POLYMYXIN/BACITRACIN OINT 15 GM TUBE TOPICAL SCH (09:08)
[2016-12-15] MEDS: SODIUM CHLORIDE 0.9% FLUSH 5 ML FLUSH IVF SCH (09:17)
--- NOTE | 2016-12-15 09:44 | HHI.PR ---
Subjective Remarks having several bowel movements. No output from fistula. Denies abdominal pain, nausea. Objective Vital Signs Vital Signs Date Time Temp Pulse Resp B/P Pulse Ox O2 Delivery O2 Flow Rate FiO2 12/15/16 08:00 97.9 92 16 117/55 100 12/15/16 05:40 97.1 86 20 132/65 97 12/15/16 00:00 97.3 98 20 125/58 98 12/14/16 22:50 Nasal Cannula 2.00 12/14/16 20:00 97.8 98 22 122/57 97 12/14/16 20:00 108 12/14/16 16:00 97.1 79 18 119/71 95 12/14/16 12:00 96.0 89 17 144/58 97 I/O 12/14/16 12/14/16 12/14/16 12/15/16 12/15/16 12/15/16 06:59 14:59 22:59 06:59 14:59 22:59 Intake Total 810 ml 600 ml 843 ml 816 ml Output Total 700 ml 1600 ml 900 ml 550 ml Balance 110 ml -1000 ml -57 ml 266 ml Intake Oral 240 ml 600 ml 240 ml 120 ml TPN/PPN 570 ml 603 ml 490 ml Lipid 206 ml Output Urine Total 700 ml 1600 ml 900 ml 550 ml # Bowel Movements 0 1 1 1 Result Diagram: 12/14/16 0540 12/13/16 0620 Objective Remarks NAD. A/O x 3 RRR Respiration Nonlabored abd soft, no peritoneal signs. colostomy bag in place, no stool seen. Appears only urine draining from Ileal Conduit. Ileal conduit pink, viable. Ext NT. No c/c/e Procedures Radical Cystoprostatectomy, Pelvic LN dissection, Ileal Conduit 11/05/2016 Assessment and Plan Assessment and Plan s/p Radical Cystoprostatectomy, Ileal Conduit with post operative ileus, A- flutter with RVR, enterocutaneous fistula -continue TPN, full diet. . -PT/OT -Possible CT Scan later this week to re-evaluate fistula. -Appreciate other services input. Duncan Huff MD Dec 15, 2016 09:44
[2016-12-15] MEDS ORDERED: ACETAMINOPHEN 325 MG TAB PO PRN (09:45)
[2016-12-15] MEDS ORDERED: NALOXONE HCL 0.4 MG/ML AMP IV PRN (09:45)
[2016-12-15] MEDS: oxyCODONE/ACETAMINOPHEN 5 MG/325 MG TAB PO PRN (10:14)
--- NOTE | 2016-12-15 15:35 | HHI.PR ---
Subjective Remarks F/U EC fistula. He is doing okay requesting smaller dose of Lortab. Discussed with RN Objective Vitals Vital Signs Date Time Temp Pulse Resp B/P Pulse Ox O2 Delivery O2 Flow Rate FiO2 12/15/16 13:53 95 12/15/16 12:00 97.7 102 18 120/49 96 12/15/16 09:06 2.00 12/15/16 08:00 97.9 92 16 117/55 100 12/15/16 05:40 97.1 86 20 132/65 97 12/15/16 00:00 97.3 98 20 125/58 98 12/14/16 22:50 Nasal Cannula 2.00 12/14/16 20:00 97.8 98 22 122/57 97 12/14/16 20:00 108 12/14/16 16:00 97.1 79 18 119/71 95 I/O 12/14/16 12/14/16 12/14/16 12/15/16 12/15/16 12/15/16 07:00 15:00 23:00 07:00 15:00 23:00 Intake Total 810 ml 600 ml 843 ml 816 ml Output Total 700 ml 1600 ml 900 ml 550 ml Balance 110 ml -1000 ml -57 ml 266 ml Intake Oral 240 ml 600 ml 240 ml 120 ml TPN/PPN 570 ml 603 ml 490 ml Lipid 206 ml Output Urine Total 700 ml 1600 ml 900 ml 550 ml # Bowel Movements 0 1 1 1 Result Diagram: 12/14/16 0540 12/13/16 0620 Objective Remarks General: No acute distress. Well-developed and well-nourished Skin: No lesions no rash Neck: No JVD Heart: Regular rate and rhythm. No murmur. Lungs: Clear to auscultation bilaterally. No wheezes, rales, or rhonchi. Breathing is nonlabored. Abdomen: Soft, ostomy bag in place. Nontender normal active bowel sounds Extremities: No lower extremity edema or cyanosis Neuro/Psych: Alert and oriented. Non focal Procedures 11/05/2016 Symptomatic large supraumbilical hernia. Bladder cancer requiring radical cystectomy. 11/08/2016 1. Radical cystoprostatectomy with ileal conduit. 2. Bilateral pelvic lymph node dissection. Right IJ central line A/P Problem List: (1) Acute exacerbation of chronic obstructive pulmonary disease (COPD) ICD Code: J44.1 Status: Resolved (2) Bladder cancer ICD Code: C67.9 Status: Chronic (3) HTN (hypertension) ICD Code: I10 Status: Chronic (4) Atrial flutter ICD Code: I48.92 Status: Chronic (5) Insomnia ICD Code: G47.00 Status: Resolved Assessment and Plan 1. Bladder cancer: Status post radical cystoprostatectomy with ileal conduit. Patient developed postoperative ileus, enterocutaneous fistula. Appreciate general surgery and urology recommendations. Will likely need definitive surgical repair in 4 weeks. Surgery and urology are recommending that the patient remain inpatient secondary to the complexity of his wounds and fistula. Continue TPN. Doing okay no drainage in the ostomy. Per repeat CT 2. Ileus versus partial small bowel obstruction: Resolved patient having bowel movement. Tolerating full liquids. Bentyl as needed 3. Acute exacerbation of COPD: Improved. Nebulization as needed. Continue supplemental oxygen. Status post treatment with Levaquin. 4. Enterocutaneous fistula: Continue wound care. 5. Atrial flutter with RVR: Stable. Continue oral Cardizem and apixaban. 6. Hypertension: Continue Cardizem, Lasix. 7. Anemia secondary to acute blood loss: Status post transfusion. Hemoglobin improved. 8. Leukocytosis: Monitor labs. Completed course of Augmentin. 9. Fluid overload: Continue Lasix monitor renal function. 10. Hyperkalemia: Resolved. 11. Mild hyponatremia: Asymptomatic. Monitor labs. 12. Hyperglycemia secondary to TPN: Patient has history of borderline diabetes. A1c is 6.4. Continue sliding scale insulin coverage and regular insulin in TPN 13. Deconditioning: Continue physical therapy. 14. DVT prophylaxis: Eliquis. Discharge Planning Per general surgery and urology, patient is to remain as inpatient until wound healing has progressed, which may take weeks due to the complexity of the wound. Navi Monreal MD Dec 15, 2016 15:35
[2016-12-15] MEDS: MULTIVITAMIN INJ 10 ML, FOLIC ACID INJ 1 MG, INSULIN HUMAN REGULAR INJ 40 UNITS in AMIN... IV-CENTRAL SCH (21:16)
[2016-12-15] MEDS: ATORVASTATIN 40 MG TAB PO SCH (21:17)
[2016-12-16] VITALS (8 sets, daily range): BP systolic 120–146; BP diastolic 58–84; PULSE 89–102; RESP 16–22; TEMP 96.1–98.2; O2SAT 94–99
[2016-12-16] MEDS: oxyCODONE/ACETAMINOPHEN 5 MG/325 MG TAB PO PRN ×2 (01:08→21:09)
[2016-12-16] MEDS: INSULIN ASPART SUPPLEMENTAL SCALE SQ SCH ×4 (07:00→21:00)
[2016-12-16] MEDS: FUROSEMIDE 20 MG TAB PO SCH ×2 (08:08→16:34)
[2016-12-16] MEDS: DILTIAZEM-CD 120 MG CAP ER PO SCH (08:08)
[2016-12-16] MEDS: APIXABAN 5 MG TABLET PO SCH ×2 (08:08→21:01)
[2016-12-16] MEDS: PANTOPRAZOLE SOD 40 MG DELAYED RELEASE TAB PO SCH ×2 (08:08→21:01)
[2016-12-16] MEDS: CETIRIZINE HCL 10 MG TAB PO SCH (08:08)
[2016-12-16] MEDS: SPIRIVA RESPIMAT INH SCH (08:09)
[2016-12-16] MEDS: BUDESONIDE-FORMOTEROL 160/4.5 MCG INHALER INH SCH ×2 (08:10→21:02)
[2016-12-16] MEDS: NEOMYCIN/POLYMYXIN/BACITRACIN OINT 15 GM TUBE TOPICAL SCH (08:10)
[2016-12-16] MEDS: SODIUM CHLORIDE 0.9% FLUSH 5 ML FLUSH IVF SCH (08:11)
--- NOTE | 2016-12-16 11:21 | HHI.PR ---
Subjective Remarks Follow-up interval continues fistula. Had a large BM yesterday. No fecal drainage in ostomy. He is doing okay. Discussed with RN Objective Vitals Vital Signs Date Time Temp Pulse Resp B/P Pulse Ox O2 Delivery O2 Flow Rate FiO2 12/16/16 10:28 99 Nasal Cannula 3.00 12/16/16 08:08 Nasal Cannula 2.00 12/16/16 08:07 98.0 89 16 127/60 98 12/16/16 04:00 98.0 93 20 127/58 98 12/16/16 02:09 18 12/16/16 00:00 96.1 89 20 130/63 97 12/15/16 21:15 Nasal Cannula 2.00 21 12/15/16 21:15 92 12/15/16 20:00 96.6 88 20 120/64 98 12/15/16 18:12 97 Nasal Cannula 2.00 12/15/16 16:00 97.9 70 17 114/45 97 12/15/16 13:53 95 12/15/16 12:00 97.7 102 18 120/49 96 I/O 12/15/16 12/15/16 12/15/16 12/16/16 12/16/16 12/16/16 07:00 15:00 23:00 07:00 15:00 23:00 Intake Total 816 ml 1314 ml 865 ml Output Total 550 ml 550 ml 1600 ml Balance 266 ml 764 ml -735 ml Intake Oral 120 ml 720 ml 240 ml IV Total 0 ml 0 ml TPN/PPN 490 ml 594 ml 625 ml Lipid 206 ml Output Urine Total 550 ml 550 ml 1600 ml # Bowel Movements 1 2 2 Result Diagram: 12/14/16 0540 12/13/16 0620 Objective Remarks General: No acute distress. Well-developed and well-nourished. Out of bed to chair Skin: No lesions no rash Neck: No JVD Heart: Regular rate and rhythm. No murmur. Lungs: Clear to auscultation bilaterally. No wheezes, rales, or rhonchi. Breathing is nonlabored. Abdomen: Soft, ostomy bag in place. Nontender normal active bowel sounds Extremities: No lower extremity edema or cyanosis Neuro/Psych: Alert and oriented. Non focal Procedures 11/05/2016 Symptomatic large supraumbilical hernia. Bladder cancer requiring radical cystectomy. 11/08/2016 1. Radical cystoprostatectomy with ileal conduit. 2. Bilateral pelvic lymph node dissection. Right IJ central line A/P Problem List: (1) Acute exacerbation of chronic obstructive pulmonary disease (COPD) ICD Code: J44.1 Status: Resolved (2) Bladder cancer ICD Code: C67.9 Status: Chronic (3) HTN (hypertension) ICD Code: I10 Status: Chronic (4) Atrial flutter ICD Code: I48.92 Status: Chronic (5) Insomnia ICD Code: G47.00 Status: Resolved Assessment and Plan 1. Bladder cancer: Status post radical cystoprostatectomy with ileal conduit. Patient developed postoperative ileus, enterocutaneous fistula. Appreciate general surgery and urology recommendations. Will likely need definitive surgical repair in 4 weeks. Surgery and urology are recommending that the patient remain inpatient secondary to the complexity of his wounds and fistula. Continue TPN. Doing okay no fecal drainage in the ostomy. Per repeat CT soon 2. Ileus versus partial small bowel obstruction: Resolved patient having bowel movement. Tolerating full liquids. Bentyl as needed 3. Acute exacerbation of COPD: Improved. Nebulization as needed. Continue supplemental oxygen. Status post treatment with Levaquin. 4. Enterocutaneous fistula: Continue wound care. 5. Atrial flutter with RVR: Stable. Continue oral Cardizem and apixaban. 6. Hypertension: Continue Cardizem, Lasix. 7. Anemia secondary to acute blood loss: Status post transfusion. Hemoglobin improved. 8. Leukocytosis: Monitor labs. Completed course of Augmentin. 9. Fluid overload: Continue Lasix monitor renal function. 10. Hyperkalemia: Resolved. 11. Mild hyponatremia: Asymptomatic. Monitor labs. 12. Hyperglycemia secondary to TPN: Patient has history of borderline diabetes. A1c is 6.4. Continue sliding scale insulin coverage and regular insulin in TPN 13. Deconditioning: Continue physical therapy. 14. DVT prophylaxis: Eliquis. Discharge Planning Per general surgery and urology, patient is to remain as inpatient until wound healing has progressed, which may take weeks due to the complexity of the wound. Navi Monreal MD Dec 16, 2016 11:21
--- NOTE | 2016-12-16 14:03 | HHI.PR ---
Subjective Remarks had 3 large bowel movements yesterday. No output from fistula x 1 week. Some mild crampy lower abdominal pain. Denies fevers. Strength improves daily. Objective Vital Signs Vital Signs Date Time Temp Pulse Resp B/P Pulse Ox O2 Delivery O2 Flow Rate FiO2 12/16/16 12:12 96.5 102 18 146/84 97 12/16/16 10:28 99 Nasal Cannula 3.00 12/16/16 08:08 Nasal Cannula 2.00 12/16/16 08:07 98.0 89 16 127/60 98 12/16/16 04:00 98.0 93 20 127/58 98 12/16/16 02:09 18 12/16/16 00:00 96.1 89 20 130/63 97 12/15/16 21:15 Nasal Cannula 2.00 21 12/15/16 21:15 92 12/15/16 20:00 96.6 88 20 120/64 98 12/15/16 18:12 97 Nasal Cannula 2.00 12/15/16 16:00 97.9 70 17 114/45 97 I/O 12/15/16 12/15/16 12/15/16 12/16/16 12/16/16 12/16/16 07:00 15:00 23:00 07:00 15:00 23:00 Intake Total 816 ml 1314 ml 865 ml 470 ml Output Total 550 ml 550 ml 1600 ml Balance 266 ml 764 ml -735 ml 470 ml Intake Oral 120 ml 720 ml 240 ml IV Total 0 ml 0 ml TPN/PPN 490 ml 594 ml 625 ml 470 ml Lipid 206 ml Output Urine Total 550 ml 550 ml 1600 ml # Bowel Movements 1 2 2 Result Diagram: 12/14/16 0540 12/13/16 0620 Objective Remarks NAD. A/O x 3 RRR Respiration Nonlabored abd soft, no peritoneal signs. colostomy bag in place, no stool seen. Appears only urine draining from Ileal Conduit. Ileal conduit pink, viable. Ext NT. No c/c/e Procedures Radical Cystoprostatectomy, Pelvic LN dissection, Ileal Conduit 11/05/2016 Assessment and Plan Assessment and Plan s/p Radical Cystoprostatectomy, Ileal Conduit with post operative ileus, A- flutter with RVR, enterocutaneous fistula -continue TPN, full diet. . -PT/OT -CT Scan later this week to re-evaluate fistula. -Appreciate other services input. -consider downsizing colostomy bag to only covering ileal conduit as output has ceased from fistula. Duncan Huff MD Dec 16, 2016 14:03
[2016-12-16] MEDS: MULTIVITAMIN INJ 10 ML, FOLIC ACID INJ 1 MG, INSULIN HUMAN REGULAR INJ 40 UNITS in AMIN... IV-CENTRAL SCH (21:00)
[2016-12-16] MEDS: ATORVASTATIN 40 MG TAB PO SCH (21:01)
[2016-12-17] VITALS (9 sets, daily range): BP systolic 122–145; BP diastolic 59–68; PULSE 57–123; RESP 18–22; TEMP 96.3–98.6; O2SAT 95–98
[2016-12-17] MEDS: oxyCODONE/ACETAMINOPHEN 5 MG/325 MG TAB PO PRN ×2 (03:50→22:32)
[2016-12-17] MEDS: INSULIN ASPART SUPPLEMENTAL SCALE SQ SCH ×4 (06:15→22:33)
[2016-12-17] MEDS: RESP: ALBUTEROL 0.63 MG/3 ML NEB (PRN) NEB (08:10)
[2016-12-17] MEDS: DILTIAZEM-CD 120 MG CAP ER PO SCH (10:01)
[2016-12-17] MEDS: FUROSEMIDE 20 MG TAB PO SCH ×2 (10:01→17:49)
[2016-12-17] MEDS: CETIRIZINE HCL 10 MG TAB PO SCH (10:01)
[2016-12-17] MEDS: PANTOPRAZOLE SOD 40 MG DELAYED RELEASE TAB PO SCH ×2 (10:02→20:31)
[2016-12-17] MEDS: APIXABAN 5 MG TABLET PO SCH ×2 (10:02→20:31)
[2016-12-17] MEDS: NEOMYCIN/POLYMYXIN/BACITRACIN OINT 15 GM TUBE TOPICAL SCH (10:02)
[2016-12-17] MEDS: SODIUM CHLORIDE 0.9% FLUSH 5 ML FLUSH IVF SCH (10:03)
[2016-12-17] MEDS: SPIRIVA RESPIMAT INH SCH (10:03)
[2016-12-17] MEDS: BUDESONIDE-FORMOTEROL 160/4.5 MCG INHALER INH SCH ×2 (10:03→20:40)
--- NOTE | 2016-12-17 13:09 | HHI.PR ---
Subjective Remarks had some breathing issues earier this morning due to cleaning of hallway floors. Breathing treatment helped. Passing flatus. Ambulating. Objective Vital Signs Vital Signs Date Time Temp Pulse Resp B/P Pulse Ox O2 Delivery O2 Flow Rate FiO2 12/17/16 12:00 98.6 57 20 136/60 95 12/17/16 09:00 Nasal Cannula 3.00 12/17/16 08:10 97 Nasal Cannula 3.00 12/17/16 08:00 97.8 97 20 145/68 97 12/17/16 05:00 18 12/17/16 04:00 97.9 86 22 122/59 97 12/17/16 00:00 96.3 80 20 128/60 98 12/16/16 20:54 Nasal Cannula 2.00 21 12/16/16 20:00 97.9 95 22 126/60 98 12/16/16 19:06 94 Nasal Cannula 2.00 12/16/16 16:13 98.2 92 18 120/59 96 I/O 12/16/16 12/16/16 12/16/16 12/17/16 12/17/16 12/17/16 07:00 15:00 23:00 07:00 15:00 23:00 Intake Total 865 ml 1430 ml 1386 ml 320 ml 793 ml Output Total 1600 ml 1900 ml 850 ml 1000 ml Balance -735 ml -470 ml 536 ml -680 ml 793 ml Intake Oral 240 ml 960 ml 720 ml 320 ml 120 ml IV Total 0 ml 0 ml 0 ml TPN/PPN 625 ml 470 ml 666 ml 673 ml Output Urine Total 1600 ml 1900 ml 850 ml 1000 ml # Bowel Movements 2 0 0 Result Diagram: 12/14/16 0540 12/13/16 0620 Objective Remarks NAD. A/O x 3 RRR Respiration Nonlabored abd soft, no peritoneal signs. colostomy bag in place, no stool seen. Appears only urine draining from Ileal Conduit. Ileal conduit pink, viable. Ext NT. No c/c/e Procedures Radical Cystoprostatectomy, Pelvic LN dissection, Ileal Conduit 11/05/2016 Assessment and Plan Assessment and Plan s/p Radical Cystoprostatectomy, Ileal Conduit with post operative ileus, A- flutter with RVR, enterocutaneous fistula -Advance to regular diet. Monitor output from fistula. -Continue TPN. -PT/OT -Appreciate other services input. -consider downsizing colostomy bag to only covering ileal conduit as output has ceased from fistula. Duncan Huff MD Dec 17, 2016 13:09
--- NOTE | 2016-12-17 14:29 | HHI.PR ---
Subjective Remarks Follow-up COPD. Complain of shortness of breath, wheezing relieved with nebulization. Tolerated a regular diet. Discussed with RN Objective Vitals Vital Signs Date Time Temp Pulse Resp B/P Pulse Ox O2 Delivery O2 Flow Rate FiO2 12/17/16 12:00 98.6 57 20 136/60 95 12/17/16 09:00 Nasal Cannula 3.00 12/17/16 08:10 97 Nasal Cannula 3.00 12/17/16 08:00 97.8 97 20 145/68 97 12/17/16 05:00 18 12/17/16 04:00 97.9 86 22 122/59 97 12/17/16 00:00 96.3 80 20 128/60 98 12/16/16 20:54 Nasal Cannula 2.00 21 12/16/16 20:00 97.9 95 22 126/60 98 12/16/16 19:06 94 Nasal Cannula 2.00 12/16/16 16:13 98.2 92 18 120/59 96 I/O 12/16/16 12/16/16 12/16/16 12/17/16 12/17/16 12/17/16 07:00 15:00 23:00 07:00 15:00 23:00 Intake Total 865 ml 1430 ml 1386 ml 320 ml 793 ml Output Total 1600 ml 1900 ml 850 ml 1000 ml Balance -735 ml -470 ml 536 ml -680 ml 793 ml Intake Oral 240 ml 960 ml 720 ml 320 ml 120 ml IV Total 0 ml 0 ml 0 ml TPN/PPN 625 ml 470 ml 666 ml 673 ml Output Urine Total 1600 ml 1900 ml 850 ml 1000 ml # Bowel Movements 2 0 0 Result Diagram: 12/14/16 0540 12/13/16 0620 Objective Remarks General: No acute distress. Well-developed and well-nourished. Out of bed to chair Skin: No lesions no rash Neck: No JVD Heart: Regular rate and rhythm. No murmur. Lungs: Clear to auscultation bilaterally. No wheezes, rales, or rhonchi. Breathing is nonlabored. Abdomen: Soft, ostomy bag in place. Nontender normal active bowel sounds Extremities: No lower extremity edema or cyanosis Neuro/Psych: Alert and oriented. Non focal Procedures 11/05/2016 Symptomatic large supraumbilical hernia. Bladder cancer requiring radical cystectomy. 11/08/2016 1. Radical cystoprostatectomy with ileal conduit. 2. Bilateral pelvic lymph node dissection. Right IJ central line A/P Problem List: (1) Acute exacerbation of chronic obstructive pulmonary disease (COPD) ICD Code: J44.1 Status: Resolved (2) Bladder cancer ICD Code: C67.9 Status: Chronic (3) HTN (hypertension) ICD Code: I10 Status: Chronic (4) Atrial flutter ICD Code: I48.92 Status: Chronic (5) Insomnia ICD Code: G47.00 Status: Resolved Assessment and Plan 1. Bladder cancer: Status post radical cystoprostatectomy with ileal conduit. Patient developed postoperative ileus, enterocutaneous fistula. Surgery and urology are recommending that the patient remain inpatient secondary to the complexity of his wounds and fistula. Continue TPN. Doing okay no fecal drainage in the ostomy diet advanced to regular. Per repeat CT soon 2. Ileus versus partial small bowel obstruction: Resolved patient having bowel movement. Tolerating regular diet. Bentyl as needed 3. Acute exacerbation of COPD: Mild exacerbation today already improved. Start scheduled nebulization and as needed. Continue supplemental oxygen. Status post treatment with Levaquin. 4. Enterocutaneous fistula: Continue wound care. Consider downsizing ostomy per 5. Atrial flutter with RVR: Stable. Continue oral Cardizem and apixaban. 6. Hypertension: Continue Cardizem, Lasix. 7. Anemia secondary to acute blood loss: Status post transfusion. Hemoglobin improved. 8. Leukocytosis: Monitor labs. Completed course of Augmentin. 9. Fluid overload: Continue Lasix monitor renal function. 10. Hyperkalemia: Resolved. 11. Mild hyponatremia: Asymptomatic. Monitor labs. 12. Hyperglycemia secondary to TPN: Patient has history of borderline diabetes. A1c is 6.4. Continue sliding scale insulin coverage and regular insulin in TPN 13. Deconditioning: Continue physical therapy. 14. DVT prophylaxis: Eliquis. Discharge Planning Per general surgery and urology, patient is to remain as inpatient until wound healing has progressed, which may take weeks due to the complexity of the wound. Navi Monreal MD Dec 17, 2016 14:29
[2016-12-17] MEDS: RESP: ALBUTEROL 2.5 MG/IPRATROPIUM 0.5 MG NEB (SCH) NEB ×2 (16:00→20:45)
[2016-12-17] MEDS: FAT EMULSION 20% INJ 250 ML (Twice weekly over 8 hours) IV-CENTRAL SCH (20:30)
[2016-12-17] MEDS: MULTIVITAMIN INJ 10 ML, FOLIC ACID INJ 1 MG, INSULIN HUMAN REGULAR INJ 40 UNITS in AMIN... IV-CENTRAL SCH (20:30)
[2016-12-17] MEDS: ATORVASTATIN 40 MG TAB PO SCH (20:31)
[2016-12-17] MEDS: TEMAZEPAM 7.5 MG CAP PO PRN (22:32)
[2016-12-18] VITALS (8 sets, daily range): BP systolic 102–142; BP diastolic 54–63; PULSE 86–141; RESP 16–20; TEMP 97.4–98.3; O2SAT 95–99
[2016-12-18] MEDS: INSULIN ASPART SUPPLEMENTAL SCALE SQ SCH ×4 (04:36→20:18)
[2016-12-18] MEDS: FUROSEMIDE 20 MG TAB PO SCH ×2 (09:00→17:17)
[2016-12-18] MEDS: DILTIAZEM-CD 120 MG CAP ER PO SCH (09:00)
[2016-12-18] MEDS: SPIRIVA RESPIMAT INH SCH (09:06)
[2016-12-18] MEDS: SODIUM CHLORIDE 0.9% FLUSH 5 ML FLUSH IVF SCH (09:06)
[2016-12-18] MEDS: BUDESONIDE-FORMOTEROL 160/4.5 MCG INHALER INH SCH ×2 (09:06→20:15)
[2016-12-18] MEDS: NEOMYCIN/POLYMYXIN/BACITRACIN OINT 15 GM TUBE TOPICAL SCH (09:06)
[2016-12-18] MEDS: PANTOPRAZOLE SOD 40 MG DELAYED RELEASE TAB PO SCH ×2 (09:07→20:15)
[2016-12-18] MEDS: APIXABAN 5 MG TABLET PO SCH ×2 (09:07→20:15)
[2016-12-18] MEDS: CETIRIZINE HCL 10 MG TAB PO SCH (09:08)
[2016-12-18] MEDS: RESP: ALBUTEROL 2.5 MG/IPRATROPIUM 0.5 MG NEB (SCH) NEB ×4 (09:36→20:00)
--- NOTE | 2016-12-18 10:04 | HHI.PR ---
Subjective Remarks tolerating regular diet. several bowel movements, flatus. No output from fistula. Breathing improved. Objective Vital Signs Vital Signs Date Time Temp Pulse Resp B/P Pulse Ox O2 Delivery O2 Flow Rate FiO2 12/18/16 09:38 95 Nasal Cannula 3.00 12/18/16 08:00 97.4 94 19 102/57 97 12/18/16 04:00 98.0 87 18 122/59 98 12/18/16 00:00 98.3 94 18 124/54 99 12/17/16 21:39 123 12/17/16 21:30 Nasal Cannula 2.00 21 12/17/16 20:00 97.9 81 18 128/62 98 12/17/16 20:00 96 12/17/16 16:41 97 Nasal Cannula 3.00 12/17/16 16:00 97.6 100 20 136/63 97 12/17/16 12:00 98.6 57 20 136/60 95 I/O 12/17/16 12/17/16 12/17/16 12/18/16 12/18/16 12/18/16 07:00 15:00 23:00 07:00 15:00 23:00 Intake Total 320 ml 2213 ml 1422 ml 1076 ml 120 ml Output Total 1000 ml 1500 ml 850 ml 900 ml Balance -680 ml 713 ml 572 ml 176 ml 120 ml Intake Oral 320 ml 880 ml 960 ml 240 ml 120 ml IV Total 0 ml TPN/PPN 1333 ml 462 ml 588 ml Lipid 248 ml Output Urine Total 1000 ml 1500 ml 850 ml 900 ml # Bowel Movements 0 0 Result Diagram: 12/14/16 0540 Objective Remarks NAD. A/O x 3 RRR Respiration Nonlabored abd soft, no peritoneal signs. colostomy bag in place, no stool seen. Appears only urine draining from Ileal Conduit. Ileal conduit pink, viable. Ext NT. No c/c/e Procedures Radical Cystoprostatectomy, Pelvic LN dissection, Ileal Conduit 11/05/2016 Assessment and Plan Assessment and Plan s/p Radical Cystoprostatectomy, Ileal Conduit with post operative ileus, A- flutter with RVR, enterocutaneous fistula -Advance to regular diet. Monitor output from fistula. -Continue TPN. Will wean over next couple days as long as tolerates regular diet without any setbacks. -PT/OT -Appreciate other services input. -Ask wound care to apply ostomy appliance to conduit only, wound care for midline incision -D/C planning with home health nurse. Duncan Huff MD Dec 18, 2016 10:04
--- NOTE | 2016-12-18 13:40 | HHI.PR ---
Subjective Remarks Follow-up COPD. Improved shortness of breath on nebulizations. Tolerating regular diet. Positive regular movement. No fecal drainage from the ostomy. Discussed with RN Objective Vitals Vital Signs Date Time Temp Pulse Resp B/P Pulse Ox O2 Delivery O2 Flow Rate FiO2 12/18/16 12:00 97.6 86 16 141/55 98 12/18/16 09:38 95 Nasal Cannula 3.00 12/18/16 09:05 Nasal Cannula 2.00 12/18/16 08:00 97.4 94 19 102/57 97 12/18/16 04:00 98.0 87 18 122/59 98 12/18/16 00:00 98.3 94 18 124/54 99 12/17/16 21:39 123 12/17/16 21:30 Nasal Cannula 2.00 21 12/17/16 20:00 97.9 81 18 128/62 98 12/17/16 20:00 96 12/17/16 16:41 97 Nasal Cannula 3.00 12/17/16 16:00 97.6 100 20 136/63 97 I/O 12/17/16 12/17/16 12/17/16 12/18/16 12/18/16 12/18/16 07:00 15:00 23:00 07:00 15:00 23:00 Intake Total 320 ml 2213 ml 1422 ml 1076 ml 120 ml Output Total 1000 ml 1500 ml 850 ml 900 ml Balance -680 ml 713 ml 572 ml 176 ml 120 ml Intake Oral 320 ml 880 ml 960 ml 240 ml 120 ml IV Total 0 ml TPN/PPN 1333 ml 462 ml 588 ml Lipid 248 ml Output Urine Total 1000 ml 1500 ml 850 ml 900 ml # Bowel Movements 0 0 Result Diagram: 12/14/16 0540 Imaging Last Impressions Chest X-Ray 11/19/16 0000 Signed Impressions: Service Date/Time: Saturday, November 19, 2016 13:34 - CONCLUSION: 1. No placement of right central venous line with no evidence of pneumothorax. 2. Interval placement of nasogastric tube. 3. Patchy opacity remains at the lung bases. Orion Aguilera MD Abdomen/Pelvis CT 11/19/16 0000 Signed Impressions: Service Date/Time: Saturday, November 19, 2016 20:12 - CONCLUSION: 1. Status post cystectomy with an ileal loop in the right lower quadrant. Ureteral stents are seen through the ileal loop bilaterally. No hydronephrosis is seen. 2. 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 This appearance is completely unchanged. There is an adjacent segment of small bowel herniating through this region. This is also unchanged from the prior exam. 3. Bibasilar areas of consolidation or atelectasis. 4. Status post cystectomy and suspected prostatectomy. 5. Evidence of prior granulomatous exposure. Harris Yusuf MD Central Venous Line 11/14/16 0000 Signed Impressions: Service Date/Time: Monday, November 14, 2016 16:07 - CONCLUSION: Uncomplicated line placement as above. Mando Rodriguez MD CT Angiography 11/12/16 0000 Signed Impressions: Service Date/Time: Saturday, November 12, 2016 04:09 - CONCLUSION: 1. No evidence for pulmonary embolism. 2. Abnormal patchy areas of pulmonary consolidation are noted as described above. Small pleural effusions. 3. Emphysema. Timmy Jacobson MD Lower Extremity Ultrasound 11/11/16 0000 Signed Impressions: Service Date/Time: Friday, November 11, 2016 10:03 - CONCLUSION: Negative exam with no evidence of deep venous thrombosis. Orion Aguilera MD Abdomen X-Ray 11/11/16 0000 Signed Impressions: Service Date/Time: Friday, November 11, 2016 17:02 - CONCLUSION: 1. Air distention of small bowel loops in the left upper abdominal quadrant with decompression of the visualized portions of the colon. Pattern is concerning for possible early small bowel obstruction versus focal hypodynamic ileus. This study will serve as a baseline for followup imaging. 2. Postsurgical changes characteristic of ileal conduit with bilateral double-J stents terminating in the right lower abdominal quadrant. Mando Rodriguez MD Objective Remarks General: No acute distress. Well-developed and well-nourished. Out of bed to chair Skin: No lesions no rash Neck: No JVD Heart: Regular rate and rhythm. No murmur. Lungs: Clear to auscultation bilaterally. No wheezes, rales, or rhonchi. Breathing is nonlabored. Abdomen: Soft, ostomy bag in place. Nontender normal active bowel sounds Extremities: No lower extremity edema or cyanosis Neuro/Psych: Alert and oriented. Procedures 11/05/2016 Symptomatic large supraumbilical hernia. Bladder cancer requiring radical cystectomy. 11/08/2016 1. Radical cystoprostatectomy with ileal conduit. 2. Bilateral pelvic lymph node dissection. Right IJ central line A/P Problem List: (1) Acute exacerbation of chronic obstructive pulmonary disease (COPD) ICD Code: J44.1 Status: Resolved (2) Bladder cancer ICD Code: C67.9 Status: Chronic (3) HTN (hypertension) ICD Code: I10 Status: Chronic (4) Atrial flutter ICD Code: I48.92 Status: Chronic (5) Insomnia ICD Code: G47.00 Status: Resolved Assessment and Plan 1. Bladder cancer: Status post radical cystoprostatectomy with ileal conduit. Patient developed postoperative ileus, enterocutaneous fistula. Surgery and urology are recommending that the patient remain inpatient secondary to the complexity of his wounds and fistula. Continue TPN. Doing okay no fecal drainage in the ostomy diet advanced to regular. Per repeat CT soon and wean TPN 2. Ileus versus partial small bowel obstruction: Resolved patient having bowel movement. Tolerating regular diet. Bentyl as needed 3. Acute exacerbation of COPD: Improved continue scheduled nebulization and as needed. Continue supplemental oxygen. Status post treatment with Levaquin. 4. Enterocutaneous fistula: Continue wound care. Consider downsizing ostomy per 5. Atrial flutter with RVR: Stable. Continue oral Cardizem and apixaban. 6. Hypertension: Continue Cardizem, Lasix. 7. Anemia secondary to acute blood loss: Status post transfusion. Hemoglobin improved. 8. Leukocytosis: Monitor labs. Completed course of Augmentin. 9. Fluid overload: Continue Lasix monitor renal function. 10. Hyperkalemia: Resolved. 11. Mild hyponatremia: Asymptomatic. Monitor labs. 12. Hyperglycemia secondary to TPN: Patient has history of borderline diabetes. A1c is 6.4. Continue sliding scale insulin coverage and regular insulin in TPN 13. Deconditioning: Continue physical therapy. 14. DVT prophylaxis: Eliquis. Discharge Planning Per general surgery and urology, patient is to remain as inpatient until wound healing has progressed, which may take weeks due to the complexity of the wound. Navi Monreal MD Dec 18, 2016 13:40
[2016-12-18] MEDS: MULTIVITAMIN INJ 10 ML, FOLIC ACID INJ 1 MG, INSULIN HUMAN REGULAR INJ 40 UNITS in AMIN... IV-CENTRAL SCH (20:14)
[2016-12-18] MEDS: ATORVASTATIN 40 MG TAB PO SCH (20:15)
[2016-12-18] MEDS: TEMAZEPAM 7.5 MG CAP PO PRN (21:59)
[2016-12-18] MEDS: oxyCODONE/ACETAMINOPHEN 5 MG/325 MG TAB PO PRN (22:00)
[2016-12-19] VITALS (9 sets, daily range): BP systolic 114–149; BP diastolic 48–67; PULSE 90–103; RESP 18–22; TEMP 96.1–99; O2SAT 96–100
[2016-12-19] MEDS: INSULIN ASPART SUPPLEMENTAL SCALE SQ SCH ×4 (05:06→20:33)
[2016-12-19] MEDS: RESP: ALBUTEROL 2.5 MG/IPRATROPIUM 0.5 MG NEB (SCH) NEB ×4 (07:55→19:20)
[2016-12-19] MEDS: SODIUM CHLORIDE 0.9% FLUSH 5 ML FLUSH IVF SCH (09:00)
[2016-12-19] MEDS: NEOMYCIN/POLYMYXIN/BACITRACIN OINT 15 GM TUBE TOPICAL SCH (09:24)
[2016-12-19] MEDS: BUDESONIDE-FORMOTEROL 160/4.5 MCG INHALER INH SCH ×2 (09:24→20:26)
[2016-12-19] MEDS: SPIRIVA RESPIMAT INH SCH (09:25)
[2016-12-19] MEDS: CETIRIZINE HCL 10 MG TAB PO SCH (09:26)
[2016-12-19] MEDS: APIXABAN 5 MG TABLET PO SCH ×2 (09:26→20:25)
[2016-12-19] MEDS: DILTIAZEM-CD 120 MG CAP ER PO SCH (09:26)
[2016-12-19] MEDS: PANTOPRAZOLE SOD 40 MG DELAYED RELEASE TAB PO SCH ×2 (09:26→20:25)
[2016-12-19] MEDS: FUROSEMIDE 20 MG TAB PO SCH ×2 (09:26→17:47)
--- NOTE | 2016-12-19 12:52 | HHI.FF ---
Face to Face Verification Diagnosis: (1) Bladder cancer (2) Acute exacerbation of chronic obstructive pulmonary disease (COPD) (3) Enterocutaneous fistula Home Health Nursing Order: Wound care and dressing changes I have seen patient David Gay Jr Jerry on 12/19/16. My clinical findings support the need for the requested home health care services because: Deconditioned w/ increased weakness I certify that my clinical findings support that this patient is homebound because: Hx COPD- exertion dyspnea/weakness ostomy teaching Duncan Huff MD Dec 19, 2016 12:52
[2016-12-19] MEDS: DOCUSATE SODIUM 100 MG CAP PO SCH ×2 (13:09→20:25)
--- NOTE | 2016-12-19 14:13 | HHI.PR ---
Subjective Remarks Follow-up visit COPD, A. fib with RVR, HTN. Patient seen today. Reports he is doing well. States that he has some wheezing this morning after floor was cleaned with chemicals. He was given nebulization treatment and increase his nasal cannula to 4 L temporarily. States his nose is trying up due to O2 use. Complaints of constipation. Otherwise, denies increasing shortness of breath dyspnea. Denies pain or discomfort. Denies chest pain, palpitations, dizziness , headaches, nausea, vomiting, diarrhea. Denies fevers, chills. Objective Vitals Vital Signs Date Time Temp Pulse Resp B/P Pulse Ox O2 Delivery O2 Flow Rate FiO2 12/19/16 12:00 96.5 103 20 140/66 96 12/19/16 09:10 Nasal Cannula 3.00 21 12/19/16 08:23 97.5 92 22 139/63 98 12/19/16 08:00 91 12/19/16 07:57 98 Nasal Cannula 3.00 12/19/16 04:00 97.7 90 18 134/59 100 12/19/16 00:00 99.0 101 18 114/48 98 12/18/16 20:50 141 12/18/16 20:15 Nasal Cannula 2.00 21 12/18/16 20:00 105 12/18/16 20:00 97.8 108 18 142/60 98 12/18/16 16:00 97.5 96 20 141/63 97 I/O 12/18/16 12/18/16 12/18/16 12/19/16 12/19/16 12/19/16 07:00 15:00 23:00 07:00 15:00 23:00 Intake Total 1076 ml 1874 ml 761 ml 1146 ml Output Total 900 ml 1000 ml 650 ml 850 ml Balance 176 ml 874 ml 111 ml 296 ml Intake Oral 240 ml 1220 ml 240 ml 480 ml IV Total 654 ml TPN/PPN 588 ml 521 ml 666 ml Lipid 248 ml Output Urine Total 900 ml 1000 ml 850 ml Drainage Total 650 ml # Bowel Movements 0 1 Imaging Last Impressions Chest X-Ray 11/19/16 0000 Signed Impressions: Service Date/Time: Saturday, November 19, 2016 13:34 - CONCLUSION: 1. No placement of right central venous line with no evidence of pneumothorax. 2. Interval placement of nasogastric tube. 3. Patchy opacity remains at the lung bases. Orion Aguilera MD Abdomen/Pelvis CT 11/19/16 0000 Signed Impressions: Service Date/Time: Saturday, November 19, 2016 20:12 - CONCLUSION: 1. Status post cystectomy with an ileal loop in the right lower quadrant. Ureteral stents are seen through the ileal loop bilaterally. No hydronephrosis is seen. 2. 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 This appearance is completely unchanged. There is an adjacent segment of small bowel herniating through this region. This is also unchanged from the prior exam. 3. Bibasilar areas of consolidation or atelectasis. 4. Status post cystectomy and suspected prostatectomy. 5. Evidence of prior granulomatous exposure. Harris Yusuf MD Central Venous Line 11/14/16 0000 Signed Impressions: Service Date/Time: Monday, November 14, 2016 16:07 - CONCLUSION: Uncomplicated line placement as above. Mando Rodriguez MD CT Angiography 11/12/16 0000 Signed Impressions: Service Date/Time: Saturday, November 12, 2016 04:09 - CONCLUSION: 1. No evidence for pulmonary embolism. 2. Abnormal patchy areas of pulmonary consolidation are noted as described above. Small pleural effusions. 3. Emphysema. Timmy Jacobson MD Lower Extremity Ultrasound 11/11/16 0000 Signed Impressions: Service Date/Time: Friday, November 11, 2016 10:03 - CONCLUSION: Negative exam with no evidence of deep venous thrombosis. Orion Aguilera MD Abdomen X-Ray 11/11/16 0000 Signed Impressions: Service Date/Time: Friday, November 11, 2016 17:02 - CONCLUSION: 1. Air distention of small bowel loops in the left upper abdominal quadrant with decompression of the visualized portions of the colon. Pattern is concerning for possible early small bowel obstruction versus focal hypodynamic ileus. This study will serve as a baseline for followup imaging. 2. Postsurgical changes characteristic of ileal conduit with bilateral double-J stents terminating in the right lower abdominal quadrant. Mando Rodriguez MD Objective Remarks GENERAL: This is a well-nourished, well-developed patient, in no apparent distress. HEENT: Normocephalic. Pupils equal round and reactive. Nose without bleeding. Airway patent. NECK: Trachea midline. No JVD. Supple. CARDIOVASCULAR: Regular rate and rhythm without murmurs, gallops, or rubs. RESPIRATORY: Unlabored breathing. Moderate aeration. No wheezing noted. GASTROINTESTINAL: Abdomen soft, non-tender, nondistended. Bowel Sounds hypoactive. Abdominal wound with dressing CDI. Right lower quadrant stoma pink no drainage noted. MUSCULOSKELETAL: Extremities without clubbing, cyanosis, or edema. NEUROLOGICAL: Awake and alert. Oriented x 3. No focal neuro deficit. PACE. Normal speech. Procedures 11/05/2016 Symptomatic large supraumbilical hernia. Bladder cancer requiring radical cystectomy. 11/08/2016 1. Radical cystoprostatectomy with ileal conduit. 2. Bilateral pelvic lymph node dissection. Right IJ central line A/P Problem List: (1) Acute exacerbation of chronic obstructive pulmonary disease (COPD) ICD Code: J44.1 Status: Resolved (2) Bladder cancer ICD Code: C67.9 Status: Chronic (3) HTN (hypertension) ICD Code: I10 Status: Chronic (4) Atrial flutter ICD Code: I48.92 Status: Chronic (5) Insomnia ICD Code: G47.00 Status: Resolved Assessment and Plan Mr. Edwards is a pleasant 70-year-old male with a history of bladder cancer, COPD, hypertension who underwent radical cystoprostatectomy, umbilical hernia repair during this admission. Hospitalist service was consulted for COPD exacerbation as well as general medical management. Bladder cancer - status post radical cystoscopy prostatectomy - Patient developed postoperative ileus, enterocutaneous fistula. Surgery and urology are recommending that the patient remain inpatient secondary to the complexity of his wounds and fistula. Continue TPN. Doing okay no fecal drainage in the ostomy diet advanced to regular. Per repeat CT soon and wean TPN Ileus versus partial small bowel obstruction - Resolved patient having bowel movement - Bentyl when necessary - Tolerating by mouth diet - Bowel regimen for constipation Acute exacerbation of COPD - Continue scheduled nebulization and when necessary - Continue supplemental oxygen - Completed treatment with Levaquin - Add humidification to O2 due to drying of mucosa, nasal saline spray PRN Enterococcus fistula - Continue wound care - Continue downsizing ostomy per Atrial flutter - Continue oral Cardizem and Eliquis. Controlled HTN Fluid overload - Continue Cardizem and Lasix Hyperglycemia TPN - Hyperglycemia secondary to TPN use - Patient to be weaned off with TPN. TPN with regular insulin. - Continue insulin sliding scale. - Hemoglobin A1c 6.4 Generalized weakness/deconditioning - Continue physical therapy Anemia - continue multivitamin supplementation with TPN use. - May switch to by mouth when tolerating PO - Monitor H&H DVT prop Eliquis Full code Discussed with patient, nursing, and Dr. Crowell Discharge Planning General surgery and urology, patient to remain inpatient until wound healing has progressed. Monique Medel Dec 19, 2016 14:13
[2016-12-19] MEDS: SODIUM CHLORIDE 0.65% NASAL SPRAY 45 ML BTL EACH NARE PRN (14:35)
--- NOTE | 2016-12-19 15:57 | HHI.PR ---
Subjective Patient symptoms today c/o constipation, but having BMs and passing flatus. tolerating regular diet. Ambulating. Objective Vital Signs Vital Signs Date Time Temp Pulse Resp B/P Pulse Ox O2 Delivery O2 Flow Rate FiO2 12/19/16 12:00 96.5 103 20 140/66 96 12/19/16 12:00 Nasal Cannula 3.00 21 12/19/16 09:10 Nasal Cannula 3.00 21 12/19/16 08:23 97.5 92 22 139/63 98 12/19/16 08:00 91 12/19/16 07:57 98 Nasal Cannula 3.00 12/19/16 04:00 97.7 90 18 134/59 100 12/19/16 00:00 99.0 101 18 114/48 98 12/18/16 20:50 141 12/18/16 20:15 Nasal Cannula 2.00 21 12/18/16 20:00 105 12/18/16 20:00 97.8 108 18 142/60 98 12/18/16 16:00 97.5 96 20 141/63 97 Intake & Output 12/19/16 12/19/16 07:00 19:00 Intake Total 1907 ml 601 ml Output Total 1500 ml Balance 407 ml 601 ml Intake Oral 720 ml TPN/PPN 1187 ml 601 ml Output Urine Total 850 ml Drainage Total 650 ml # Bowel Movements 1 Objective Remarks NAD. A/O x 3 RRR Respiration Nonlabored abd soft, no peritoneal signs. wounds with pink granulation tissue, almost closed. No evidence of fecal matter. Ileal conduit pink, viable with ostomy bag in place. Ext NT. No c/c/e Procedures Radical Cystoprostatectomy, Pelvic LN dissection, Ileal Conduit 11/05/2016 Medications and IVs Current Medications Medications (Trade) Dose Ordered Sig/Julia Route Start Time Stop Time Status Last Admin (Zofran Inj) 4 mg Q6HR PRN IV PUSH 11/05/16 13:00 11/15/16 14:20 (Lipitor) 40 mg HS PO 11/05/16 21:00 12/18/16 20:15 (ZyrTEC) 10 mg DAILY PO 11/06/16 09:00 12/19/16 09:26 (Symbicort 160-4.5 Inh) 1 puff BID INH 11/05/16 14:00 12/19/16 09:24 (Tums Chew) 1,000 mg Q6H PRN CHEW 11/09/16 03:00 12/14/16 10:19 (Vasotec Inj) 1.25 mg Q6H PRN IV PUSH 11/10/16 09:00 11/10/16 09:29 (NS Flush) DAILY IVF 11/15/16 09:00 12/18/16 09:06 (NS Flush) UNSCH PRN IVF 11/14/16 16:45 12/03/16 20:19 (Cepacol Extra German (Sugar Free)) 1 lozenge Q2H PRN BUCCAL 11/15/16 09:45 11/23/16 04:58 Patient Own Medication PT OWN MED: SPIR... DAILY INH 11/23/16 09:00 12/19/16 09:25 (Eliquis) 5 mg BID PO 11/23/16 10:00 12/19/16 09:26 (Lasix) 20 mg BID@18 PO 11/23/16 18:00 12/19/16 09:26 Diltiazem HCl 120 mg 120 mg DAILY PO 11/26/16 09:00 12/19/16 09:26 (Liposyn Iii 20% Inj) 250 ml @ 31.25 mls/ hr SuWe@20 IV-CENTRAL 11/26/16 20:00 12/17/16 20:30 (D50w (Vial) Inj) 25 ml UNSCH PRN IV PUSH 11/26/16 09:15 Glucagon 1 mg 1 mg UNSCH PRN OTHER 11/26/16 09:15 (Mvi-12 Inj/ Folvite Inj/ NovoLIN R INJ/ Clinimix E 02/26) 2,010.6 ml @ 75 mls/hr Q24H IV-CENTRAL 11/26/16 20:00 12/18/16 20:14 (Protonix) 40 mg BID PO 12/05/16 21:00 12/19/16 09:26 (Restoril) 7.5 mg HS PRN PO 12/08/16 15:00 12/18/16 21:59 (Neosporin Oint) 1 applic DAILY TOPICAL 12/11/16 14:00 12/19/16 09:24 (Bentyl) 20 mg QID PRN PO 12/14/16 11:00 12/15/16 07:20 (Colace) 100 mg BID PO 12/19/16 13:00 12/19/16 13:09 (Tylenol) 650 mg Q4H PRN PO 12/19/16 12:45 ([place]) 2 spray Q4H PRN EACH NARE 12/19/16 13:30 12/19/16 14:35 Assessment and Plan Assessment and Plan s/p Radical Cystoprostatectomy, Ileal Conduit with post operative ileus, A- flutter with RVR, enterocutaneous fistula -Continue Regular diet. Wean TPN, starting tonight. -D/C narcotic pain medication. Add colace. -Appreciate wound care -Anticipate d/c home with home health nurse Thursday or Thursday. -Thank for other service input. Duncan Huff MD Dec 19, 2016 15:57
--- NOTE | 2016-12-19 16:13 | HHI.PR ---
Subjective Subjective Notes Resting in bed Reports stool from rectum over the last week Amazed by progress of fistula healing Objective Vitals/I&O Vital Signs Date Time Temp Pulse Resp B/P Pulse Ox O2 Delivery O2 Flow Rate FiO2 12/19/16 12:00 96.5 103 20 140/66 96 12/19/16 12:00 Nasal Cannula 3.00 21 Cardiovascular: Regular Lungs: Clear Abdomen: Other (see below ) Extremities: No edema Narrative Exam Abd: urostomy in place with urine; Fistulas site with dry dressing---no drainage A/P Assessment and Plan 70 year old male s/p radical cystectomy and ileo conduit (by Urology); s/p UHR ( by General Surgery) -Great improvement in healing of fistulas -Regular diet -Encourage mobilization ---OOB daily and ambulate in room and hallway -GS clear fror DC when okay with Medical Team and Urology -Follow up with Dr. Melgar in about 10-14 days I certify and attest that I personally examined this patient with Ms. Reyes who documented our visit in the EMR and entered orders under my direct supervision. I reviewed the care plan with the nursing staff and family if present. Annika Enamorado MD, FACS Dec 19, 2016 16:13 Yrn Melgar MD Dec 24, 2016 14:34
[2016-12-19] MEDS: MULTIVITAMIN INJ 10 ML, FOLIC ACID INJ 1 MG, INSULIN HUMAN REGULAR INJ 40 UNITS in AMIN... IV-CENTRAL SCH (20:00)
[2016-12-19] MEDS: ATORVASTATIN 40 MG TAB PO SCH (20:25)
[2016-12-19] MEDS: TEMAZEPAM 7.5 MG CAP PO PRN (20:25)
[2016-12-19] MEDS: ACETAMINOPHEN 325 MG TAB PO PRN (22:35)
[2016-12-20] VITALS (9 sets, daily range): BP systolic 116–155; BP diastolic 54–67; PULSE 98–108; RESP 18–22; TEMP 96.4–98; O2SAT 96–99
[2016-12-20] MEDS: ACETAMINOPHEN 325 MG TAB PO PRN ×3 (02:53→20:33)
[2016-12-20] MEDS: INSULIN ASPART SUPPLEMENTAL SCALE SQ SCH ×2 (07:00→11:00)
[2016-12-20] MEDS: CETIRIZINE HCL 10 MG TAB PO SCH (08:41)
[2016-12-20] MEDS: DOCUSATE SODIUM 100 MG CAP PO SCH ×2 (08:41→20:29)
[2016-12-20] MEDS: PANTOPRAZOLE SOD 40 MG DELAYED RELEASE TAB PO SCH ×2 (08:41→20:29)
[2016-12-20] MEDS: DILTIAZEM-CD 120 MG CAP ER PO SCH (08:41)
[2016-12-20] MEDS: APIXABAN 5 MG TABLET PO SCH ×2 (08:41→20:29)
[2016-12-20] MEDS: SODIUM CHLORIDE 0.9% FLUSH 5 ML FLUSH IVF SCH (08:42)
[2016-12-20] MEDS: BUDESONIDE-FORMOTEROL 160/4.5 MCG INHALER INH SCH ×2 (08:44→20:30)
[2016-12-20] MEDS: NEOMYCIN/POLYMYXIN/BACITRACIN OINT 15 GM TUBE TOPICAL SCH (08:45)
[2016-12-20] MEDS: SODIUM CHLORIDE 0.65% NASAL SPRAY 45 ML BTL EACH NARE PRN (08:45)
[2016-12-20] MEDS: SPIRIVA RESPIMAT INH SCH (08:45)
[2016-12-20] MEDS: FUROSEMIDE 20 MG TAB PO SCH ×2 (08:51→17:10)
[2016-12-20] MEDS: RESP: ALBUTEROL 2.5 MG/IPRATROPIUM 0.5 MG NEB (SCH) NEB ×4 (09:20→19:39)
--- NOTE | 2016-12-20 10:59 | HHI.FF ---
Face to Face Verification Diagnosis: (1) Enterocutaneous fistula (2) Bladder cancer Home Health Nursing Order: Signs/symptoms of disease process Oxygen administration education Medication education-adverse effect Wound care and dressing changes Nursing assessment with vital signs I have seen patient David Gay Jr Jerry on 12/20/16. My clinical findings support the need for the requested home health care services because: Patient has SOB Deconditioned w/ increased weakness Limited ability to care for self I certify that my clinical findings support that this patient is homebound because: Unsteady gait/balance Unsafe to leave home unassisted Brayan Crowell MD Dec 20, 2016 10:59
--- NOTE | 2016-12-20 11:03 | HHI.PR ---
Subjective Remarks no fever, no overnight events, pain is controlled, 03/14 Objective Vitals Vital Signs Date Time Temp Pulse Resp B/P Pulse Ox O2 Delivery O2 Flow Rate FiO2 12/20/16 09:25 98 Nasal Cannula 4.00 12/20/16 08:00 96.5 98 22 155/63 99 12/20/16 04:00 97.9 101 18 116/54 99 12/20/16 00:00 98.0 108 18 125/60 97 12/19/16 20:00 97.9 98 18 121/67 97 12/19/16 19:20 99 Nasal Cannula 4.00 12/19/16 16:00 96.1 96 20 149/65 97 12/19/16 12:00 96.5 103 20 140/66 96 12/19/16 12:00 Nasal Cannula 3.00 21 I/O 12/19/16 12/19/16 12/19/16 12/20/16 12/20/16 12/20/16 07:00 15:00 23:00 07:00 15:00 23:00 Intake Total 1146 ml 1801 ml 480 ml 240 ml Output Total 850 ml 700 ml 450 ml 950 ml Balance 296 ml 1101 ml 30 ml -710 ml Intake Oral 480 ml 1200 ml 480 ml 240 ml TPN/PPN 666 ml 601 ml Output Urine Total 850 ml 700 ml 450 ml 950 ml # Bowel Movements 1 1 Objective Remarks GENERAL: This is a well-nourished, well-developed patient, in no apparent distress. HEENT: Normocephalic. Pupils equal round and reactive. Nose without bleeding. Airway patent. NECK: Trachea midline. No JVD. Supple. CARDIOVASCULAR: Regular rate and rhythm without murmurs, gallops, or rubs. RESPIRATORY: Unlabored breathing. Moderate aeration. No wheezing noted. GASTROINTESTINAL: Abdomen soft, non-tender, nondistended. Abdominal wound with dressing CDI. Right lower quadrant stoma pink no drainage noted. MUSCULOSKELETAL: Extremities without clubbing, cyanosis, or edema. NEUROLOGICAL: Awake and alert. Oriented x 3. No focal neuro deficit. PACE. Normal speech. Procedures 11/05/2016 Symptomatic large supraumbilical hernia. Bladder cancer requiring radical cystectomy. 11/08/2016 1. Radical cystoprostatectomy with ileal conduit. 2. Bilateral pelvic lymph node dissection. Right IJ central line A/P Problem List: (1) Acute exacerbation of chronic obstructive pulmonary disease (COPD) ICD Code: J44.1 Status: Resolved (2) Bladder cancer ICD Code: C67.9 Status: Chronic (3) HTN (hypertension) ICD Code: I10 Status: Chronic (4) Atrial flutter ICD Code: I48.92 Status: Chronic (5) Insomnia ICD Code: G47.00 Status: Resolved Assessment and Plan Mr. Edwards is a pleasant 70-year-old male with a history of bladder cancer, COPD, hypertension who underwent radical cystoprostatectomy, umbilical hernia repair during this admission. Hospitalist service was consulted for COPD exacerbation as well as general medical management. Bladder cancer - status post radical cystoscopy prostatectomy - Patient developed postoperative ileus, enterocutaneous fistula. Surgery and urology are recommending that the patient remain inpatient secondary to the complexity of his wounds and fistula.Doing okay no fecal drainage in the ostomy diet advanced to regular. Wean from TPN, GS has cleared patient Ileus versus partial small bowel obstruction - Resolved patient having bowel movement - Bentyl when necessary - Tolerating by mouth diet - Bowel regimen for constipation Acute exacerbation of COPD - Continue scheduled nebulization and when necessary - Continue supplemental oxygen - Completed treatment with Levaquin Enterococcus fistula - Continue wound care - Continue downsizing ostomy per Atrial flutter - Continue oral Cardizem and Eliquis. Controlled HTN Fluid overload - Continue Cardizem and Lasix Hyperglycemia TPN - Hyperglycemia secondary to TPN use - Patient to be weaned off with TPN. TPN with regular insulin. - Continue insulin sliding scale. - Hemoglobin A1c 6.4 Generalized weakness/deconditioning - Continue physical therapy Anemia - continue multivitamin supplementation with TPN use. - May switch to by mouth when tolerating PO - Monitor H&H DVT prop Eliquis Discharge tomorrow with home health care Discharge Planning Discharge tomorrow with home health care Brayan Crowell MD Dec 20, 2016 11:03 regular rehabilitation. Brayan Crowell MD Dec 20, 2016 11:03
[2016-12-20] MEDS ORDERED: BENT20TA PO (11:12)
[2016-12-20] MEDS ORDERED: DOCU1CAP39 PO (11:12)
[2016-12-20] MEDS ORDERED: PANT40TA3 PO (11:12)
[2016-12-20] MEDS: ATORVASTATIN 40 MG TAB PO SCH (20:29)
[2016-12-21 00:03] VITALS: BP 128/64; PULSE 85; RESP 20; TEMP 98.5; O2SAT 97
[2016-12-21] MEDS: TEMAZEPAM 7.5 MG CAP PO PRN (00:46)
[2016-12-21] MEDS: ACETAMINOPHEN 325 MG TAB PO PRN (02:39)
[2016-12-21 07:36] VITALS: O2SAT 94
[2016-12-21] MEDS: RESP: ALBUTEROL 2.5 MG/IPRATROPIUM 0.5 MG NEB (SCH) NEB (07:36)
[2016-12-21 08:00] VITALS: BP 131/63; PULSE 124; RESP 20; TEMP 92.4; O2SAT 93
[2016-12-21] MEDS: SPIRIVA RESPIMAT INH SCH (09:00)
[2016-12-21] MEDS: BUDESONIDE-FORMOTEROL 160/4.5 MCG INHALER INH SCH (09:19)
[2016-12-21] MEDS: SODIUM CHLORIDE 0.9% FLUSH 5 ML FLUSH IVF SCH (09:19)
[2016-12-21] MEDS: DILTIAZEM-CD 120 MG CAP ER PO SCH (09:20)
[2016-12-21] MEDS: DOCUSATE SODIUM 100 MG CAP PO SCH (09:20)
[2016-12-21] MEDS: PANTOPRAZOLE SOD 40 MG DELAYED RELEASE TAB PO SCH (09:20)
[2016-12-21] MEDS: CETIRIZINE HCL 10 MG TAB PO SCH (09:20)
[2016-12-21] MEDS: APIXABAN 5 MG TABLET PO SCH (09:20)
[2016-12-21] MEDS: FUROSEMIDE 20 MG TAB PO SCH (09:20)
[2016-12-21] MEDS: NEOMYCIN/POLYMYXIN/BACITRACIN OINT 15 GM TUBE TOPICAL SCH (09:21)
[2016-12-21] MEDS ORDERED: CARD120C4 PO ×2 (09:23→09:25)
[2016-12-21] MEDS ORDERED: APIX5TAB PO (09:23)
[2016-12-21] MEDS ORDERED: PROT40TA PO (09:23)
[2016-12-21] MEDS ORDERED: DOCU100C PO (09:23)
[2016-12-21] MEDS ORDERED: FURO1TAB62 PO (09:23)
[2016-12-21] MEDS ORDERED: NEOS.9T TOPICAL (09:25)
--- NOTE | 2016-12-21 09:27 | HHI.DS ---
Discharge Summary Admission Date Nov 05, 2016 at 05:11 Discharge Date: Dec 21, 2016 Admitting Diagnosis (1) Acute exacerbation of chronic obstructive pulmonary disease (COPD) ICD Code: J44.1 Diagnosis: Secondary (2) Bladder cancer ICD Code: C67.9 Diagnosis: Principal (3) HTN (hypertension) ICD Code: I10 Diagnosis: Secondary (4) Atrial flutter ICD Code: I48.92 Diagnosis: Secondary (5) Insomnia ICD Code: G47.00 Diagnosis: Secondary Procedures 11/05/2016 Symptomatic large supraumbilical hernia. Bladder cancer requiring radical cystectomy. 11/08/2016 1. Radical cystoprostatectomy with ileal conduit. 2. Bilateral pelvic lymph node dissection. Right IJ central line Brief History - From Admission Mr. Edwards is a pleasant 70-year-old male with a history of bladder cancer, COPD, hypertension who underwent radical cystoprostatectomy with ileal conduit and bilateral pelvic lymph node dissection on 11/08/2016. Patient also underwent primary umbilical hernia repair by general surgery. Hospitalist service was consulted for COPD exacerbation as well as general medical management. At the time of this interview patient is doing well but reports difficulty breathing. He denies any chest pain, fever or chills. He reports more than usual difficulty with his breathing. He uses 2-4 L of oxygen at home. Patient reports intolerance to prednisone before but he has used IV steroid without any difficulty. PE at Discharge GENERAL: This is a well-nourished, well-developed patient, in no apparent distress. HEENT: Normocephalic. Pupils equal round and reactive. Nose without bleeding. Airway patent. NECK: Trachea midline. No JVD. Supple. CARDIOVASCULAR: Regular rate and rhythm without murmurs, gallops, or rubs. RESPIRATORY: Unlabored breathing. Moderate aeration. No wheezing noted. GASTROINTESTINAL: Abdomen soft, non-tender, nondistended. Abdominal wound with dressing CDI. Right lower quadrant stoma pink no drainage noted. MUSCULOSKELETAL: Extremities without clubbing, cyanosis, or edema. NEUROLOGICAL: Awake and alert. Oriented x 3. No focal neuro deficit. PACE. Normal speech. Pt update on day of discharge Patient denies any stomach pain, nausea or vomiting. Tolerating diet. Abdominal pain. No fever. Discussed with RN. Hospital Course Mr. Edwards is a pleasant 70-year-old male with a history of bladder cancer, COPD, hypertension who underwent radical cystoprostatectomy, umbilical hernia repair during this admission. General surgery were consulted because patient developed postoperative ileus and enterocutaneous fistula. Urology was also consulted. Postoperative course was complicated by SBO versus ileus, patient was started on Ventolin which was given as needed, and bowel regimen for constipation. He was also placed on TPN temporarily because of initial nonresponsiveness. Prior to discharge, patient has been doing better, no fecal drainage from the ostomy site and tolerating regular diet. TPN was weaned off. Hospital course was also complicated by acute COPD exacerbation which improved with Levaquin and steroids. Patient also had atrial flutter. Patient was placed on Cardizem and eliquis. Patient will be discharge with home healthcare for wound care and ostomy care. He will also continue Lasix for volume overload. Patient was discharged after cleared by general surgery and urology. Pt Condition on Discharge: Stable Discharge Disposition: Disch w/ Home Health Serv Discharge Time: > 30 minutes Discharge Instructions DIET: Follow Instructions for: Diabetic Diet Activities you can perform: Regular-No Restrictions Activities to Avoid: Driving Follow up Referrals: PCP Follow-up - 1 Week Surgical - 10 Days with Yrn Melgar MD Urology - 1 Week New Medications: Apixaban (Eliquis) 5 Mg Tab 5 MG PO BID Blood Clot Prevention #14 Ref 0 TAB Diltiazem CD 24 HR (Cardizem CD 24 HR) 120 Mg Caper 120 MG PO DAILY htn #7 Ref 0 CAP Docusate Sodium (Docusate Sodium) 100 Mg Cap 100 MG PO BID Prevent Constipation #14 Ref 0 CAP Furosemide (Lasix) 20 Mg Tab 20 MG PO BID water pill #14 Ref 0 TAB Oxycodone-Acetaminophen (Percocet) 10-325 mg Tab 1 TAB PO Q6H PRN PAIN #12 Ref 0 TAB Pantoprazole (Protonix) 40 Mg Tab 40 MG PO BID Ulcer Prevention #14 Ref 0 TAB Amoxicillin-Clavulanate (Amoxicillin-Clavulanate) 875-125 mg Tab 875 MG PO Q12HR Stop date Dec 01 2016 Infection #8 TAB Apixaban (Eliquis) 5 Mg Tab 5 MG PO BID Prevent Blood Clot #60 TAB Dicyclomine (Bentyl) 20 Mg Tab 20 MG PO QID PRN ABDOMINAL CRAMPING #30 TAB Diltiazem CD 24 HR (Cardizem CD 24 HR) 120 Mg Caper 120 MG PO DAILY PRN Regulate Heart Beat Days 30 CAP Docusate Sodium (Dok) 100 Mg Cap 100 MG PO BID constipation #60 CAP Furosemide (Furosemide) 20 Mg Tab 20 MG PO BID@09,18 Prevent Heart Failure #60 TAB Insulin Aspart Inj (Novolog Inj) 100 Unit/Ml Inj 1 UNITS SQ ACHS SLIDING SCALE use hi dose kodak while on TPN Blood Sugar Management #180 INJECTION Ipratropium-Albuterol Neb (Duoneb) 0.5-2.5 Mg/3 Ml Neb 1 AMPULE NEB QID NEB Breathing Treatment #120 ML Neomycin/Polymyxin/Bacitracin (Bacitracin/Neomycin/Polymyxin 400-5-5000) 0.9 Gm Oin 1 APPLIC TOPICAL DAILY antibiotic #1 TUBE Pantoprazole (Pantoprazole) 40 Mg Tab 40 MG PO DAILY Manage Heartburn #30 TAB Pantoprazole (Pantoprazole) 40 Mg Tab 40 MG PO BID GI #60 TAB Continued Medications: Atorvastatin (Lipitor) 40 Mg Tab 40 MG PO HS Cholesterol Management #30 Ref 0 TAB Cetirizine (Zyrtec Allergy) 10 Mg Cap 10 MG PO DAILY Allergies Ref 0 CAP Cholecalciferol (Vitamin D-3) 2,000 Unit Tab 2000 UNITS PO DAILY Cyanocobalamin (Vitamin B12) 500 Mcg Tab 1000 MCG PO DAILY #1 BOTTLE Fluticasone-Salmeterol Inh (Advair Diskus Inh) 250-50 Mcg/Blist Aer 1 PUFF INH BID Rinse mouth after use. #1 Ref 0 INHALER Tiotropium Inh (Spiriva Respimat Inh) 2.5 Mcg/Act Aero 2 PUFF INH DAILY 2.5 mcg = 1 inhalation COPD #1 Ref 0 INHALER Discontinued Medications: Aspirin (Aspirin) 81 Mg Tabdr 81 MG PO DAILY TAB Tamsulosin (Flomax) 0.4 Mg Cap 0.4 MG PO HS Manage Prostate Problems #30 Ref 0 CAP Telmisartan (Micardis) 80 Mg Tab 80 MG PO DAILY Blood Pressure Management #30 Ref 0 TAB Brayan Crowell MD Dec 21, 2016 09:27
== END 2016-12-21 11:16 | disposition home health service (06) | DRG 653 ==
LOC: HSDI 11-05 05:11 → N03B 11-05 20:00 → N07A 11-07 19:50 → HCIN 11-11 20:38 → N03B 11-19 16:46 → N04B 11-27 00:05 → N07B 11-27 20:30
PROVIDERS: ADMIT Hospitalist; ATTEND Hospitalist
PROC: 07TC0ZZ Resection of Pelvis Lymphatic, Open Approach (ICD-10-PCS; 2016-11-05)
PROC: 0T1807C Bypass Bilateral Ureters to Ileocutaneous with Autologous Tissue Substitute, Open Approach (ICD-10-PCS; 2016-11-05)
PROC: 0WQF0ZZ Repair Abdominal Wall, Open Approach (ICD-10-PCS; 2016-11-05)
PROC: 0TTB0ZZ Resection of Bladder, Open Approach (ICD-10-PCS; principal; 2016-11-05 07:41)
PROC: 0VT00ZZ Resection of Prostate, Open Approach (ICD-10-PCS; 2016-11-05 07:41)
PROC: 5A09557 Assistance with Respiratory Ventilation, Greater than 96 Consecutive Hours, Continuous Positive Airway Pressure (ICD-10-PCS; 2016-11-11)
PROC: 02HV33Z Insertion of Infusion Device into Superior Vena Cava, Percutaneous Approach (ICD-10-PCS; 2016-11-14)
PROC: 30233N1 Transfusion of Nonautologous Red Blood Cells into Peripheral Vein, Percutaneous Approach (ICD-10-PCS; 2016-11-20)
DX: C67.0 Malignant neoplasm of trigone of bladder (principal); J96.00 Acute respiratory failure, unspecified whether with hypoxia or hypercapnia; K63.2 Fistula of intestine; J44.0 Chronic obstructive pulmonary disease with (acute) lower respiratory infection; C77.5 Secondary and unspecified malignant neoplasm of intrapelvic lymph nodes; I48.92 Unspecified atrial flutter; E87.1 Hypo-osmolality and hyponatremia; D62 Acute posthemorrhagic anemia; K91.3 Postprocedural intestinal obstruction; J44.1 Chronic obstructive pulmonary disease with (acute) exacerbation; K91.89 Other postprocedural complications and disorders of digestive system; I48.1 Persistent atrial fibrillation; Z99.81 Dependence on supplemental oxygen; J20.9 Acute bronchitis, unspecified; K42.9 Umbilical hernia without obstruction or gangrene; I10 Essential (primary) hypertension; I25.10 Atherosclerotic heart disease of native coronary artery without angina pectoris; E78.5 Hyperlipidemia, unspecified; Y83.9 Surgical procedure, unspecified as the cause of abnormal reaction of the patient, or of later complication, without mention of misadventure at the time of the procedure; R73.9 Hyperglycemia, unspecified; E87.6 Hypokalemia; E87.70 Fluid overload, unspecified; I25.2 Old myocardial infarction; I95.1 Orthostatic hypotension; E87.5 Hyperkalemia; G47.00 Insomnia, unspecified; Z22.322 Carrier or suspected carrier of Methicillin resistant Staphylococcus aureus; Z87.891 Personal history of nicotine dependence
CPT/HCPCS: 36430; 36556; 36600; 71010; 71020; 71275; 74000; 74176; 76937; 77001; 80048; 80053; 82550; 82552; 82570; 82805; 82948; 83036; 83605; 83735; 83880; 84134; 84155; 84484; 85007; 85014; 85018; 85025; 85027; 85610; 85730; 86850; 86900; 86901; 86920; 87040; 87081; 87086; 87641; 88305; 88307; 88309; 88331; 93005; 93970; 94002; 94003; 94150; 94640; 94664; C1751; C2617; C9113; J0131; J0171; J0282; J0461; J0690; J1160; J1580; J1644; J1815; J1940; J1956; J2250; J2270; J2370; J2405; J2543; J2550; J2765; J2997; J3010; J3480; J7030; J7040; J7060; J7120; J7613; J7614; P9016; Q9963; Q9967

== ENCOUNTER 2017-02-09 06:18 | Day surgery (SDC) | payer MEDICARE, OTHER ==
[~2017-02-09] VITALS: Ht 167.6 cm; Wt 81.4 kg
[~2017-02-09 06:18] MED LIST changes: +AMOX875T2 PO; +APIX5TAB PO; -ASPI1TAB69 PO; +BENT20TA PO; +CARD120C4 PO; +DOCU100C PO; +DOCU1CAP39 PO; +FURO1TAB62 PO; +FURO20TA PO; +IPRASOL NEB; +NEOS.9T TOPICAL; +NOVOLOGSS SQ; +PANT40TA3 PO; +PERC10TA27 PO; +PROT40TA PO; -TAMS5CAP PO; -TELM1TAB56 PO
[2017-02-09 06:59] VITALS: BP 168/79; PULSE 86; RESP 20; TEMP 97.6; O2SAT 92
[2017-02-09] MEDS ORDERED: DEXA4TAB PO (07:04)
[2017-02-09] MEDS ORDERED: LIPI40TA PO (07:04)
[2017-02-09] MEDS ORDERED: TELM1TAB56 PO (07:04)
[2017-02-09] MEDS ORDERED: DILT-8 PO (07:04)
[2017-02-09 07:30] LABS: BASOPHIL % 0.1 % (0.0-2.0); HEMATOCRIT 36.3 % (39.0-51.0); HEMO FLAGS DIFF FINAL; LYMPH % 13.6 % (9.0-44.0); LYMPHOCYTE # 1.1 TH/MM3 (1.0-4.8); MEAN CELL VOLUME 82.6 FL (80.0-100.0); MEAN CORPUSCULAR HEMOGLOBIN 28.2 PG (27.0-34.0); MEAN CORPUSCULAR HGB CONC 34.1 % (32.0-36.0); MONO % 1.7 % (0.0-8.0); NEUT % 84.6 % (16.0-70.0); PLATELET COUNT 232 TH/MM3 (150-450); RED BLOOD COUNT 4.39 MIL/MM3 (4.50-5.90); RED CELL DISTRIBUTION WIDTH 16.9 % (11.6-17.2); WHITE BLOOD COUNT 8.3 TH/MM3 (4.0-11.0)
[2017-02-09 07:39] LABS: APTT (PATIENT) 25.6 SEC (24.3-30.1); INTERNATIONAL NORMALIZED RATIO 1.1 RATIO; PROTHROMBIN TIME - PATIENT 11.8 SEC (9.8-11.6)
[2017-02-09] MEDS ORDERED: POVIDONE IODINE 5% (ANTISEPSIS KIT) 4 APPLICATIONS EACH NARE SCH (07:45)
[2017-02-09] MEDS ORDERED: ceFAZolin 2 GM PREMIX 50 ML - implanted port/tunneled catheter insertion IV SCH (07:45)
[2017-02-09] MEDS ORDERED: VANCOMYCIN 1000 MG/NS 250 ML - implanted port/tunneled catheter IV SCH ×2 (07:45)
[2017-02-09] MEDS ORDERED: CHLORHEXIDINE GLUCONATE 2 % 1 PACK (2 CLOTHS) TOPICAL SCH (07:45)
[2017-02-09] MEDS ORDERED: SODIUM CHLORIDE 0.9% 1000 ML IV SCH (08:00)
[2017-02-09] MEDS ORDERED: LIDOCAINE 1%/EPINEPHrine 1:100,000 SOLN 20 ML VIAL ONE (08:20)
[2017-02-09] MEDS ORDERED: fentaNYL CITRATE 250 MCG/5 ML AMP ONE (08:25)
[2017-02-09] MEDS ORDERED: MIDAZOLAM HCL 5 MG/5 ML VIAL ONE (08:25)
[2017-02-09 09:35] VITALS: BP 165/62; PULSE 74; RESP 20; TEMP 97.4; O2SAT 96
--- NOTE | 2017-02-09 09:37 | PD.RAD ---
Post Procedure Progress Note Pre Procedure Diagnosis: (1) Bladder cancer Post Procedure Diagnosis: (1) Bladder cancer Procedure Date: February 09, 2017 Supervising Radiologist: Mando Rodriguez Proceduralist/Assist: Faviola Moreno RT(R), RT Mariann(R)() Anesthesia: Local, Analgesia, Conscious Sedation Plan of Activity Patient to Unit: ROPU Patient Condition: Good See PACS Report for procedural detail/treatment Central Venous Access Device Procedure 1 Right Internal Jugular Infusaport Placement single lumen Ugandan: 8 Mando Rodriguez MD February 09, 2017 09:36
[2017-02-09] MEDS ORDERED: SODIUM CHLORIDE 0.9% FLUSH 10 ML FLUSH IVF PRN (09:45)
[2017-02-09 09:50] VITALS: BP 147/64; PULSE 74; RESP 20; O2SAT 94
[2017-02-09 10:20] VITALS: BP 134/51; PULSE 67; RESP 20; O2SAT 94
[2017-02-09 10:50] VITALS: BP 138/56; PULSE 63; RESP 20; O2SAT 94
[2017-02-09 11:20] VITALS: BP 137/81; PULSE 76; RESP 20; O2SAT 94
--- NOTE | 2017-02-09 15:27 | RADRPT ---
EXAM DATE/TIME: 02/09/2017 08:27 [facility] COMPARISON: No previous studies available for comparison. INDICATIONS : Patient with history of bladder cancer in need of port placement. MEDICAL HISTORY : 1.Bladder cancer 2.AR 3.CAD 4.A-FIB 5.COPD 6.Cataracts 7.Arthritis SURGICAL HISTORY : 1.Appendectomy 2.TURBT ENCOUNTER: Initial ACUITY: 1 month PAIN SCORE: 0/10 FLUORO TIME: 0.4 minutes IMAGE SERIES: SEDATION TIME: 55 minutes ACCESS: Right internal jugular vein SEDATION: 1.) 5 mg midazolam (Versed) IV 2.) 250 mcg fentanyl (Sublimaze) IV Prophylactic antibiotics were administered with appropriate pre-procedure timing. Vancomycin within 2 hours of procedure, Ancef (or alternative) within 1 hour of procedure. DEVICE: 1. 8 Icelandic single lumen Bard Power Port PROCEDURE : 1. Continuous pulse oximetry and EKG monitoring. 2. Intravenous conscious sedation. 3. Ultrasound guidance for venous access. 4. Fluoroscopic guided implantable central venous port placement. The patient was placed supine. The neck was prepped in sterile fashion. Full sterile technique was u sed, including cap, mask, sterile gloves and gown, and a large sterile sheet. Hand hygiene and 2% ch lorhexidine Betadine was utilized per protocol for cutaneous antisepsis with appropriate dry time for site. The skin and subcutaneous tissues were infiltrated with local anesthetic solution. Under direct ultrasound guidance, central venous access was accomplished in the targeted vessel. The ultrasound images depicting access guidance were stored and saved to PACS for permanent record. A s ubcutaneous pocket was created using blunt dissection. The port was introduced to the pocket. The c atheter tubing was fed through a subcutaneous tunnel to the venotomy site. The catheter tubing was c ut to a suitable length and then was introduced through a valved Peel-Away sheath and positioned with catheter tubing tip at the cavo-atrial junction level. The pocket incision was closed with subcutic ular Vicryl suture. Steri-Strips were applied. The port was flushed and locked with heparin solutio n per protocol. Sterile dressing was applied to the site. The patient tolerated the procedure well. Conscious sedation was performed with the prescribed dosages and duration as above in the presence of an independent trained radiology nurse to assist in the monitoring of the patient. EKG and oximetry remained stable throughout the procedure. The patient tolerated the procedure well and there were no complications. The patient was sent to post anesthesia recovery in stable condition. CONCLUSION: Uncomplicated ultrasound and fluoroscopic guided implanted central venous port catheter placement as described in detail above. An 8 Icelandic Power port was placed. Mando Rodriguez MD on February 09, 2017 at 15:25 Board Certified Radiologist. This report was verified electronically.
== END 2017-02-09 11:50 | disposition home or self-care (01) ==
LOC: HROP 06:18 → HRIP 06:22 → HROP 11:50
PROVIDERS: ATTEND Internal Medicine Hematology
DX: C67.9 Malignant neoplasm of bladder, unspecified (principal); Z79.01 Long term (current) use of anticoagulants
CPT/HCPCS: 36561; 76937; 77001; 85025; 85610; 85730; 99152; 99153; C1788; J1642; J2250; J3010; J7030

== ENCOUNTER 2017-02-15 16:40 | Emergency (ER) | payer MEDICARE, OTHER ==
[~2017-02-15] VITALS: Ht 165.1 cm; Wt 82.8 kg
[~2017-02-15 16:40] MED LIST changes: -AMOX875T2 PO; -BENT20TA PO; -CARD120C4 PO; -CHOL1TAB42 PO; +DEXA4TAB PO; +DILT-8 PO; -DOCU100C PO; -DOCU1CAP39 PO; -FURO1TAB62 PO; -NOVOLOGSS SQ; -PANT40TA3 PO; -PERC10TA27 PO; -PROT40TA PO; +TELM1TAB56 PO; -VITA500T49 PO; -ZYRT10CA PO
[2017-02-15 16:44] VITALS: BP 106/51; PULSE 77; RESP 18; TEMP 99.3; O2SAT 93
[2017-02-15] MEDS ORDERED: SODIUM CHLOR 0.9% 1000 ML INJ 1,000 ML IV SCH (17:15)
[2017-02-15 17:45] LABS: AUTOMATED NEUTROPHIL # 9.6 TH/MM3 (1.8-7.7); BASOPHIL # 0.1 TH/MM3 (0-0.2); BASOPHIL % 0.7 % (0.0-2.0); EOSINOPHIL # 0.1 TH/MM3 (0-0.4); EOSINOPHIL % 0.7 % (0.0-4.0); HEMATOCRIT 37.8 % (39.0-51.0); LYMPH % 4.3 % (9.0-44.0); LYMPHOCYTE # 0.4 TH/MM3 (1.0-4.8); MEAN CELL VOLUME 82.2 FL (80.0-100.0); MEAN CORPUSCULAR HEMOGLOBIN 27.9 PG (27.0-34.0); MEAN CORPUSCULAR HGB CONC 33.9 % (32.0-36.0); MONO % 0.1 % (0.0-8.0); NEUT % 94.2 % (16.0-70.0); PLATELET COUNT 200 TH/MM3 (150-450); WHITE BLOOD COUNT 10.2 TH/MM3 (4.0-11.0)
[2017-02-15 17:46] LABS: BLOOD, URINE LARGE (NEG); GLUCOSE,URINE NEG (NEG); KETONE, URINE NEG (NEG); PH, URINE 6.5 (5.0-8.5)
[2017-02-15 17:51] LABS: HEMO FLAGS AUTO DIFF
[2017-02-15 17:52] LABS: NITRITE,URINE POS (NEG)
[2017-02-15 17:53] LABS: CHLORIDE 84 MEQ/L (98-107); METHOD OF COLLECTION CLEAN CATCH; POTASSIUM 3.2 MEQ/L (3.5-5.1); SODIUM (NA) 127 MEQ/L (136-145); URINE COLOR BROWN (YELLW/STRAW)
[2017-02-15 17:54] LABS: BACTERIA, URINE OCC /hpf; COMMENT (UR) CULTURE INDICATED; CULTURE IF INDICATED CULTURE INDICATED; RBC, URINE INNUM /hpf (0-3)
[2017-02-15] MEDS ORDERED: ZYRT10CA PO (17:55)
[2017-02-15] MEDS ORDERED: [UNRECOGNIZED DRUG - CODE] IV (17:55)
[2017-02-15] MEDS ORDERED: [UNRECOGNIZED DRUG - CODE] IV (17:55)
[2017-02-15] MEDS ORDERED: ALBUAER3 INH (17:55)
[2017-02-15] MEDS ORDERED: [UNRECOGNIZED DRUG - CODE] IV (17:55)
[2017-02-15] MEDS ORDERED: ZOFR4TAB PO (17:55)
[2017-02-15] MEDS ORDERED: LEVA500T PO (17:55)
[2017-02-15 17:57] LABS: ANION GAP 10 MEQ/L (5-15); BICARBONATE 33.3 MEQ/L (21.0-32.0); BLOOD UREA NITROGEN 36 MG/DL (7-18)
[2017-02-15 18:00] LABS: ALT (GPT) 34 U/L (12-78); AST (GOT) 19 U/L (15-37); GLOMERULAR FILTRATION RATE 66 ML/MIN (>89)
[2017-02-15 18:03] LABS: ALKALINE PHOSPHATASE 75 U/L (45-117)
--- NOTE | 2017-02-15 18:06 | PD ---
HPI Chief Complaint: Abnormal Results Time Seen by Provider: 16:57 Travel History International Travel<30 days: No Contact w/Intl Traveler<30days: No Traveled to known affect area: No History of Present Illness HPI This 71-year-old male says he been feeling a bit lightheaded today. His blood pressure was low at home. He was recently diagnosed with bladder cancer and had extensive surgery while in the hospital. He started chemotherapy last Thursday. He has a history of COPD and is on home oxygen. He has a history of atrial fibrillation. He has been eating well. He has not had nausea. PFSH Past Medical History Hx Anticoagulant Therapy: Yes (ELIQUIS) Arthritis: Yes Cancer: Yes (BLADDER CA DX in 11/2016) Cardiovascular Problems: Yes (A. FIB, [place], ) High Cholesterol: Yes Chemotherapy: Yes (last chemo 02/11/17) COPD: Yes (oxygen at home 2-3 LPM ) Coronary Artery Disease: Yes Diabetes: No Diminished Hearing: No Endocrine: No GERD: Yes Genitourinary: Yes ([place]) Hepatitis: No Hiatal Hernia: No Hypertension: Yes Immune Disorder: No Implanted Vascular Access Dvce: Yes (right infusa port placed 02/09/17) Neurologic: No Psychiatric: No Reproductive: No Respiratory: Yes (COPD) Radiation Therapy: Yes (states will be starting tx soon) Thyroid Disease: No Tetanus Vaccination: > 5 Years Past Surgical History Abdominal Surgery: Yes (right groin hernia repair, umbilical hernia repair, BLADDER,ILEAL CONDUIT) AICD: No Appendectomy: Yes Eye Surgery: Yes (CATARACT) Genitourinary Surgery: Yes (CYSTO MULTI, removal of prostate) Joint Replacement: No Pacemaker: No Other Surgery: Yes Social History Alcohol Use: No (hx of etoh) Tobacco Use: No (quit in 2003 smoked cigs) Substance Use: No Allergies-Medications (Allergen,Severity, Reaction): Coded Allergies: Ibuprofen (Verified Allergy, Severe, HIVES, 02/15/17) Motrin (Verified Allergy, Severe, swelling, 02/15/17) Prednisone (Verified Allergy, Severe, Chest Pain, 02/15/17) ELEVATED HT RATE Protonix (Verified Allergy, Intermediate, Arrhythmias, 02/15/17) *MDRO Multi-Drug Resistant Organism (Verified Adverse Reaction, Unknown, ) MRSA PCR Screen POSITIVE - 11/05/2016 Reported Meds & Prescriptions Reported Meds & Active Scripts Active Furosemide 20 Mg Tab 20 Mg PO BID@ Eliquis (Apixaban) 5 Mg Tab 5 Mg PO BID Reported Varubi (Rolapitant) Unknown Strength Tab Unknown Dose IV DIRECTED Gemcitabine HCl Unknown Strength Inj Unknown Dose IV DIRECTED Cisplatin Unknown Strength Inj Unknown Dose IV DIRECTED Zofran (Ondansetron HCl) 4 Mg Tab 4 Mg PO Q6HR PRN Levaquin (Levofloxacin) 500 Mg Tab 500 Mg PO DAILY PRN Zyrtec Allergy (Cetirizine HCl) 10 Mg Cap 10 Mg PO DAILY Proair Hfa 8.5 GM Inh (Albuterol Sulfate) 90 Mcg/Act Aer 2 Puff INH Q4-6H PRN 108 mcg/actuation Dexamethasone 4 Mg Tab 4 Mg PO DIRECTED Lipitor (Atorvastatin Calcium) 40 Mg Tab 40 Mg PO HS Tiazac (Diltiazem ER 24 HR) 240 Mg Caper 240 Mg PO DAILY Micardis (Telmisartan) 80 Mg Tab 40 Mg PO DAILY Spiriva Respimat Inh (Tiotropium Inh) 2.5 Mcg/Act Aero 2 Puff INH DAILY 2.5 mcg = 1 inhalation Oxygen tank (Oxygen) 1 Ea Tank 2 Liter BENITO.CANLED Light Sense CONTINUOUS Oxygen Concentrator Portable Gaseous 2 L/min via Nasal Cannula Continuous For 99 months Advair Diskus Inh (Fluticasone-Salmeterol Inh) 250-50 Mcg/Blist Aer 1 Puff INH BID Rinse mouth after use. Review of Systems General / Constitutional: No: Fever, Chills Eyes: No: Diploplia HENT: No: Headaches Cardiovascular: No: Chest Pain or Discomfort, Palpitations Respiratory: No: Hemoptysis Gastrointestinal: No: Vomiting, Diarrhea Genitourinary: Positive: Hematuria, No: Frequency Musculoskeletal: No: Myalgias, Arthralgias Skin: No Rash Physical Exam Narrative GENERAL: Well-developed male SKIN: Focused skin assessment warm/dry. HEAD: Atraumatic. Normocephalic. EYES: Pupils equal and round. No scleral icterus. No injection or drainage. ENT: No nasal bleeding or discharge. Mucous membranes pink and moist. NECK: Trachea midline. No JVD. CARDIOVASCULAR: Regular rate and rhythm. No murmur appreciated. RESPIRATORY: No accessory muscle use. Clear to auscultation. Breath sounds equal bilaterally. GASTROINTESTINAL: Abdomen soft, non-tender, nondistended. Hepatic and splenic margins not palpable. There is a ileal condylar pouch in the right side of the abdomen draining some dark urine MUSCULOSKELETAL: No obvious deformities. No clubbing. No cyanosis. No edema. NEUROLOGICAL: Awake and alert. No obvious cranial nerve deficits. Motor grossly within normal limits. Normal speech. PSYCHIATRIC: Appropriate mood and affect; insight and judgment normal. Data Data Last Documented VS Vital Signs Date Time Temp Pulse Resp B/P Pulse Ox O2 Delivery O2 Flow Rate FiO2 02/15/17 19:07 75 16 122/57 97 Room Air 02/15/17 17:03 2 02/15/17 16:44 99.3 Orders Complete Blood Count With Diff (02/15/17 17:07) Comprehensive Metabolic Panel (02/15/17 17:07) B-Type Natriuretic Peptide (02/15/17 17:07) Urinalysis - C+S If Indicated (02/15/17 17:07) Chest, Single Ap (02/15/17 17:07) Sodium Chlor 0.9% 1000 Ml Inj (Ns 1000 M (02/15/17 17:15) Urine Culture (02/15/17 17:30) Potassium Chloride (Kcl) (02/15/17 18:15) Labs Laboratory Tests Test 02/15/17 17:30 White Blood Count 10.2 TH/MM3 Red Blood Count 4.60 MIL/MM3 Hemoglobin 12.8 GM/DL Hematocrit 37.8 % Mean Corpuscular Volume 82.2 FL Mean Corpuscular Hemoglobin 27.9 PG Mean Corpuscular Hemoglobin 33.9 % Concent Red Cell Distribution Width 16.0 % Platelet Count 200 TH/MM3 Mean Platelet Volume 7.8 FL Neutrophils (%) (Auto) 94.2 % Lymphocytes (%) (Auto) 4.3 % Monocytes (%) (Auto) 0.1 % Eosinophils (%) (Auto) 0.7 % Basophils (%) (Auto) 0.7 % Neutrophils # (Auto) 9.6 TH/MM3 Lymphocytes # (Auto) 0.4 TH/MM3 Monocytes # (Auto) 0.0 TH/MM3 Eosinophils # (Auto) 0.1 TH/MM3 Basophils # (Auto) 0.1 TH/MM3 CBC Comment AUTO DIFF Differential Comment AUTO DIFF CONFIRMED Urine Collection Type CLEAN CATCH Urine Color BROWN Urine Turbidity CLOUDY Urine pH 6.5 Urine Specific Loraine 1.016 Urine Protein 100 mg/dL Urine Glucose (UA) NEG mg/dL Urine Ketones NEG mg/dL Urine Occult Blood LARGE Urine Nitrite POS Urine Bilirubin NEG Urine Leukocyte Esterase LARGE Urine RBC INNUM /hpf Urine WBC 9-14 /hpf Urine Bacteria OCC /hpf Microscopic Urinalysis Comment CULTURE INDICATED Sodium Level 127 MEQ/L Potassium Level 3.2 MEQ/L Chloride Level 84 MEQ/L Carbon Dioxide Level 33.3 MEQ/L Anion Gap 10 MEQ/L Blood Urea Nitrogen 36 MG/DL Creatinine 1.10 MG/DL Estimat Glomerular Filtration 66 ML/MIN Rate Random Glucose 124 MG/DL Calcium Level 8.7 MG/DL Total Bilirubin 1.0 MG/DL Aspartate Amino Transf 19 U/L (AST/SGOT) Alanine Aminotransferase 34 U/L (ALT/SGPT) Alkaline Phosphatase 75 U/L B-Type Natriuretic Peptide 65 PG/ML Total Protein 6.6 GM/DL Albumin 3.2 GM/DL [facility] Medical Decision Making Medical Screen Exam Complete: Yes Emergency Medical Condition: Yes Medical Record Reviewed: Yes Differential Diagnosis Differential includes dehydration, nausea vomiting related to chemotherapy Narrative Course Patient has not been vomiting his lab work does show a sodium of 127 potassium of 3.2. His BUNs is 36 and creatinine is 1.2. He'll be given some IV fluids. I think he can be released. He is, currently having chemotherapy I have encouraged him to force fluids. Diagnosis Primary Impression: Dehydration Additional Instructions: Increase fluids Disposition: 01 DISCHARGE HOME Condition: Stable Beto Hannah MD February 15, 2017 18:06
--- NOTE | 2017-02-15 18:09 | RADHPO ---
EXAM DATE/TIME: 02/15/2017 17:58 [facility] COMPARISON: CHEST SINGLE AP, November 19, 2016, 13:34. INDICATIONS : Short of breath MEDICAL HISTORY : Carcinoma, bladder. SURGICAL HISTORY : radical cyctoprostatectomy ENCOUNTER: Initial ACUITY: 1 day PAIN SCORE: 0/10 LOCATION: Bilateral chest FINDINGS: [id number] is in good position. Minimal bibasilar parenchymal changes are evident, improved in th e interval. The heart and pulmonary vascularity are normal. The portion of the bony skeleton visualiz ed is unremarkable. CONCLUSION: Minimal bibasilar parenchymal changes improved from 11/19/16. Paxton Jurado MD FACR on February 15, 2017 at 18:06 Board Certified Radiologist. This report was verified electronically.
[2017-02-15 18:10] LABS: SCAN/DIFF AUTO DIFF CONFIRMED
[2017-02-15] MEDS ORDERED: POTASSIUM CHLORIDE 20 MEQ CONTROLLED RELEASE TAB PO ONE (18:15)
[2017-02-15 19:07] VITALS: BP 122/57; PULSE 75; RESP 16; O2SAT 97
[2017-02-15 19:43] VITALS: BP 136/58; PULSE 87; RESP 20; TEMP 99.1; O2SAT 96
[2017-02-15 20:26] VITALS: BP 141/60
== END 2017-02-15 20:30 | disposition home or self-care (01) ==
LOC: PHED 16:40
DX: E86.0 Dehydration (principal); R82.99 Other abnormal findings in urine; B96.20 Unspecified Escherichia coli [E. coli] as the cause of diseases classified elsewhere; C67.9 Malignant neoplasm of bladder, unspecified; I10 Essential (primary) hypertension; E78.00 Pure hypercholesterolemia, unspecified; Z99.81 Dependence on supplemental oxygen; Z79.01 Long term (current) use of anticoagulants; Z87.09 Personal history of other diseases of the respiratory system; Z86.79 Personal history of other diseases of the circulatory system; Z87.39 Personal history of other diseases of the musculoskeletal system and connective tissue; Z87.19 Personal history of other diseases of the digestive system; Z87.891 Personal history of nicotine dependence
CPT/HCPCS: 71010; 80053; 81001; 83880; 85025; 87077; 87086; 87186; 96360; 96361; 99284; J1642; J7030

== ENCOUNTER 2018-01-05 11:23 | Inpatient (IN) | payer MEDICARE, OTHER ==
[~2018-01-05] VITALS: Ht 165.1 cm; Wt 78.8 kg
[~2018-01-05 11:23] MED LIST changes: +ALBUAER3 INH; +AMOX875T2 PO; +CETI10 PO; -DEXA4TAB PO; -IPRASOL NEB; +METF500T PO; -NEOS.9T TOPICAL; -TELM1TAB56 PO
[2018-01-05] MEDS ORDERED: DEXAMETHASONE SOD PHOS 4 MG/ML VIAL IV ONE (12:00)
[2018-01-05] MEDS ORDERED: VECURONIUM BROMIDE 20 MG VIAL IV ONE (12:00)
[2018-01-05] MEDS ORDERED: ePHEDrine/NS 25 MG/5 ML SYRINGE IV ONE (12:00)
[2018-01-05] MEDS ORDERED: LACTATED RINGER'S 1000 ML INJ 1,000 ML IV ONE (12:00)
[2018-01-05] MEDS ORDERED: PROPOFOL 200 MG/20 ML AMP IV ONE (12:00)
[2018-01-05] MEDS ORDERED: ROCURONIUM INJ 50 MG/5 ML SYRINGE IV PUSH ONE (12:00)
[2018-01-05] MEDS ORDERED: ONDANSETRON HCL 4 MG/2 ML VIAL IV ONE (12:00)
[2018-01-05] MEDS ORDERED: SODIUM CHLOR 0.9% 250 ML INJ 250 ML IV ONE (12:00)
[2018-01-05] MEDS ORDERED: POVIDONE IODINE 5% (ANTISEPSIS KIT) 4 APPLICATIONS EACH NARE PRN (12:15)
[2018-01-05] MEDS ORDERED: SODIUM CHLORID 0.9% 500 ML IV PRN (12:15)
[2018-01-05] MEDS ORDERED: CHLORHEXIDINE GLUCONATE 2 % 1 PACK (2 CLOTHS) TOPICAL PRN (12:15)
[2018-01-05] MEDS ORDERED: SODIUM CHLORIDE 0.9% FLUSH 10 ML FLUSH IV FLUSH PRN (12:15)
[2018-01-05] MEDS ORDERED: METOPROLOL TARTRATE 25 MG TAB PO PRN (12:15)
[2018-01-05] MEDS ORDERED: INSULIN HUMAN REGULAR 1,000 UNITS/10 ML VIAL SQ PRN (12:15)
[2018-01-05] MEDS ORDERED: LACTATED RINGER'S 1000 ML IV PRN (12:15)
[2018-01-05] MEDS ORDERED: PRED20 PO (12:25)
[2018-01-05] MEDS ORDERED: SODIUM CHLORIDE 0.9% INJ 0 ML ONE (12:31)
[2018-01-05 12:42] LABS: AUTOMATED NEUTROPHIL # 5.2 TH/MM3 (1.8-7.7); BASOPHIL % 0.2 % (0.0-2.0); EOSINOPHIL # 0.1 TH/MM3 (0-0.4); EOSINOPHIL % 1.1 % (0.0-4.0); HEMATOCRIT 36.3 % (39.0-51.0); HEMOGLOBIN 12.6 GM/DL (13.0-17.0); LYMPHOCYTE # 1.5 TH/MM3 (1.0-4.8); MEAN CELL VOLUME 90.1 FL (80.0-100.0); MEAN CORPUSCULAR HEMOGLOBIN 31.2 PG (27.0-34.0); MEAN CORPUSCULAR HGB CONC 34.6 % (32.0-36.0); MEAN PLATELET VOLUME 7.2 FL (7.0-11.0); MONO % 7.5 % (0.0-8.0); MONOCYTE # 0.6 TH/MM3 (0-0.9); NEUT % 70.2 % (16.0-70.0); PLATELET COUNT 197 TH/MM3 (150-450); RED BLOOD COUNT 4.02 MIL/MM3 (4.50-5.90); RED CELL DISTRIBUTION WIDTH 14.9 % (11.6-17.2); WHITE BLOOD COUNT 7.4 TH/MM3 (4.0-11.0)
[2018-01-05] MEDS ORDERED: ACETAMINOPHEN 1000 MG/100 ML 100 ML IV ONE (12:44)
[2018-01-05] MEDS ORDERED: DEXMEDETOMIDINE HCL 200 MCG/2 ML VIAL ONE (12:45)
[2018-01-05] MEDS ORDERED: LIDOCAINE HCL 2% 20 ML VIAL ONE (12:45)
[2018-01-05] MEDS ORDERED: MIDAZOLAM HCL 2 MG/2 ML VIAL ONE (12:45)
[2018-01-05] MEDS ORDERED: KETAMINE HCL 500 MG/10 ML VIAL ONE (12:46)
[2018-01-05] MEDS ORDERED: SODIUM BICARBONATE 8.4% INJ 0 ML ONE (12:53)
[2018-01-05] MEDS ORDERED: BUPIVACAINE/EPINEPHRINE 0.25% 50 ML VIAL ONE (12:56)
[2018-01-05] MEDS ORDERED: LIDOCAINE 1%/EPINEPHrine 1:100,000 SOLN 30 ML VIAL ONE (12:56)
[2018-01-05] MEDS ORDERED: LIDOCAINE HCL 1% 50 ML VIAL ONE (12:56)
[2018-01-05 13:01] LABS: CALCIUM 8.8 MG/DL (8.5-10.1); CREATININE 0.92 MG/DL (0.60-1.30)
[2018-01-05] MEDS: LACTATED RINGER'S 1000 ML INJ 1,000 ML IV SCH (17:04)
[2018-01-05] MEDS ORDERED: DO NOT ADM ANY ANTICOAGULANT DRUGS PRN (17:05)
[2018-01-05] MEDS ORDERED: *morphine SULFATE 4 MG/ML PERIprocedure ONLY ONE (17:12)
[2018-01-05] MEDS ORDERED: ONDANSETRON HCL 4 MG/2 ML VIAL IV PUSH PRN (17:15)
[2018-01-05] MEDS ORDERED: diphenhydrAMINE HCL 50 MG/ML VIAL IV PUSH PRN (17:15)
[2018-01-05] MEDS ORDERED: NALOXONE HCL 0.4 MG/ML AMP IV PUSH PRN (17:15)
[2018-01-05] MEDS ORDERED: ALBUTEROL SULFATE 90 MCG/ACT HFA 8 GM INHALER INH PRN (17:15)
[2018-01-05] MEDS ORDERED: Post-op Orders (for Pharmacy) XX ONE (17:15)
--- NOTE | 2018-01-05 17:47 | MP ---
cc: Yrn Melgar MD DATE OF OPERATION: 01/05/2018 PREOPERATIVE DIAGNOSIS: Multiple large ventral incisional hernias, status post radical cystectomy with ileal conduit reconstruction. POSTOPERATIVE DIAGNOSIS: Multiple large ventral incisional hernias, status post radical cystectomy with ileal conduit reconstruction. PROCEDURE PERFORMED: 1. Exploratory laparotomy. 2. Lysis of adhesions, greater than 1 hour. 3. Abdominal wall reconstruction with mesh (Littcarr mesh 20 x 30). 4. Myocutaneous advancement flap with a transversus abdominis release (unilateral). SURGEON: Yrn Melgar MD FRUIT VENDOR: Josh Alicea MD SECOND RESEARCH ASSISTANT MEMBER: Taylor Person, MS-3 ANESTHESIA: General endotracheal. COMPLICATIONS: None. ESTIMATED BLOOD LOSS: 50 mL INDICATIONS FOR PROCEDURE: Mr. Edwards is a very pleasant 72-year-old gentleman who underwent a radical cystectomy with Dr. Huff and Dr. Serna about 2 years ago. Postoperatively, he had a problem with multiple fistulas and dehiscence of his wound. The patient developed a very large ventral incisional hernia involving his entire midline incision. He was seen in the office. The patient also had a parastomal hernia. The patient was advised to wear a binder due to his medical comorbidities, specifically his COPD and his oxygen dependence. The patient came back to the office requesting repair. He understood that repair would carry significant morbidity and mortality and he still wanted to proceed with repair. Risks and benefits of repair were discussed with them in detail including complications and , and he was agreeable. DETAILS OF PROCEDURE: The patient was identified, brought to the operating room and placed supine on the operating table. After adequate general endotracheal anesthesia was achieved, the urostomy was infiltrated with a Richardson catheter and then taped off from the right lower quadrant and covered with a sterile Tegaderm. The abdominal wall was then prepped and draped in standard surgical fashion. Upper midline incision was made above the patient's previous incision. Abdominal cavity was then entered. Next, using very meticulous dissection, the skin was carefully dissected off of the subcutaneous tissue. There were multiple loops of small bowel, densely adherent to the underside of the skin, and these were carefully taken down with sharp dissection. Once we freed up the midline incision, we were able to mobilize the bowel off the fascia on both sides. The small bowel was completely freed up. All interloop adhesions were taken down. Urostomy site was visualized in the right lower quadrant, but was not disturbed. It should be noted that this lysis of adhesions for greater than 1 hour to get the abdomen completely open. Once the abdomen was fully open, attention was now directed to our repair. Repair was accomplished using abdominal wall reconstruction with a myocutaneous advancement flap. First, attention was directed to the hernia sac, which was dissected from surrounding tissue circumferentially. We preserved the hernia sac in order to assist with the closure of the peritoneal cavity. Next, a posterior fascia and peritoneal release was performed from the rectus muscle on the patient's left side. On the right side, we did not perform this procedure as this is where the patient had his urostomy. Once this was completely freed up, we were able to primarily close the peritoneum over the small bowel. The small bowel was carefully placed back in the abdominal cavity. Seprafilm was placed over the bowel to prevent adhesions. Next, the peritoneum was carefully closed using a #1 PDS from above and below. We were able to get the peritoneum closed primarily and all bowel was covered. We had to perform a myofascial advancement flap in order to achieve primary closure. This was freed up all the way to the transversus abdominis muscle. At the transversus abdominis muscle, we then incised the anterior fascia in order to perform a release in order to achieve primary closure. Once we were able to do this, we were able to get the peritoneum and posterior fascia together primarily. Attention was now directed to the mesh placement. The mesh was placed in a retrorectus position. A 20 x 30 piece of Littcarr mesh was used and was cut down to a 15 x 20 to generously cover the abdominal wall. The mesh was then secured circumferentially using a 2-0 PDS suture. Inferiorly, we anchored the mesh to the pelvic bone and to the inguinal ligament on the lateral sides. Care was taken to identify and preserve the cord structures as well as the base of the penis. Once we did this, the abdominal wall was completely closed in tight with the mesh in place. Attention was now directed to the anterior closure. Unfortunately, the patient did not have sufficient fascia inferiorly in order to perform anterior closure. Therefore, the anterior closure was performed superiorly using a #1 PDS in continuous running fashion down to the level of the ostomy. At the level of the ostomy, there was a large fascial defect and we were unable to achieve primary closure. We then decided to use a separate Littcarr mesh to perform a sandwich technique. Mesh was secured in a bridging fashion, securing it to the fascia on the left side and on the right side in order to cover the gap. This was again accomplished using a 2-0 PDS suture. With this, the abdominal wall was completely closed and tight. Attention was now directed to closure. Subcutaneous skin was dissected off the abdominal wall fascia on both sides. The redundant skin was then excised. The subcutaneous fat was then sutured down to the mesh using a quilting technique to eliminate possible gaps for seroma. Subcutaneous tissue was then reapproximated with 3-0 Vicryl and skin was closed with a skin stapling device. The patient tolerated the procedure well, was awakened and brought to recovery in stable condition. MD ALTAF Molina/OCTAVIA , 05:18 PM , 05:46 PM VALORIE
[2018-01-05] MEDS: metFORMIN HCL 500 MG TAB PO SCH (18:00)
[2018-01-05] MEDS: MORPHINE SULFATE 30 MG/30 ML PCA IV SCH (18:48)
[2018-01-05] MEDS ORDERED: SUGAMMADEX SODIUM 200 MG/2 ML VIAL IV PUSH ONE (19:03)
--- NOTE | 2018-01-05 19:58 | PD.CONS ---
HPI Service Critical Care Medicine Consult Requested By Primary Care Physician Christian Bullard MD History of Present Illness Mr. Edwards is a pleasant 70-year-old male with a history of bladder cancer, COPD, hypertension who underwent Exploratory laparotomy, Lysis of adhesions, Abdominal wall reconstruction with mesh (Chester mesh 20 x 30), Myocutaneous advancement flap with a transversus abdominis release is now admitted to [facility] for postop management. Review of Systems Constitutional: DENIES: Diaphoretic episodes, Fatigue, Fever, Weight gain, Weight loss, Chills, Dizziness, Change in appetite, Night Sweats Endocrine: DENIES: Heat/cold intolerance, Polydipsia, Polyuria, Polyphagia Eyes: DENIES: Blurred vision, Diplopia, Eye inflammation, Eye pain, Vision loss , Photosensitivity, Double Vision Ears, nose, mouth, throat: DENIES: Tinnitus, Hearing loss, Vertigo, Nasal discharge, Oral lesions, Throat pain, Hoarseness, Ear Pain, Running Nose, Epistaxis, Sinus Pain, Toothache, Odynophagia Respiratory: DENIES: Apneas, Cough, Snoring, Wheezing, Hemoptysis, Sputum production, Shortness of breath Cardiovascular: DENIES: Chest pain, Palpitations, Syncope, Dyspnea on Exertion , PND, Lower Extremity Edema, Orthopnea, Claudication Gastrointestinal: COMPLAINS OF: Abdominal pain, Constipation, Nausea, Anorexia , DENIES: Black stools, Bloody stools, Vomiting, Difficulty Swallowing Genitourinary: DENIES: Sexual dysfunction, Urinary frequency, Urinary incontinence, Urgency, Hematuria, Dysuria, Nocturia, Penile Discharge, Testicular Pain, Testicular Swelling Musculoskeletal: DENIES: Joint pain, Muscle aches, Stiffness, Joint Swelling, Back pain, Neck pain Integumentary: DENIES: Abnormal pigmentation, Nail changes, Pruritus, Rash Hematologic/lymphatic: DENIES: Bruising, Lymphadenopathy Immunologic/allergic: DENIES: Eczema, Urticaria Neurologic: DENIES: Abnormal gait, Headache, Localized weakness, Paresthesias, Seizures, Speech Problems, Tremor, Poor Balance Psychiatric: DENIES: Anxiety, Confusion, Mood changes, Depression, Hallucinations, Agitation, Suicidal Ideation, Homicidal Ideation, Delusions Past Family Social History Allergies: Coded Allergies: ibuprofen (Unverified Allergy, Severe, swelling, 01/05/18) prednisone (Unverified Allergy, Severe, Chest Pain, 01/05/18) ELEVATED HT RATE pantoprazole (Unverified Allergy, Intermediate, Arrhythmias, 01/05/18) *MDRO Multi-Drug Resistant Organism (Verified Adverse Reaction, Unknown, ) MRSA PCR Screen POSITIVE - 11/05/2016 Past Medical History Bladder cancer, COPD, hypertension Past Surgical History Hernia repair, appendectomy Recent surgery this admission include umbilical hernia repair, radical cystoprostatectomy Reported Medications Reported Meds & Active Scripts Active Furosemide 20 Mg Tab 20 Mg PO BID@ Eliquis (Apixaban) 5 Mg Tab 5 Mg PO BID Reported Prednisone 20 Mg Tab 20 Mg PO DIRECTED 40 MG twice a day x 3 days, then 20 MG daily x 3 days, then 10 MG daily x 3 days Amoxicillin-Clavulanate 875-125 mg Tab 875 Mg PO BID not for use in CrCl <30 mL/minute Cetirizine (Cetirizine HCl) 10 Mg Tab 10 Mg PO DAILY Metformin (Metformin HCl) 500 Mg Tab 500 Mg PO BIDPC Proair Hfa 8.5 GM Inh (Albuterol Sulfate) 90 Mcg/Act Aer 2 Puff INH Q4-6H PRN 108 mcg/actuation Lipitor (Atorvastatin Calcium) 40 Mg Tab 40 Mg PO HS Tiazac (Diltiazem ER 24 HR) 240 Mg Caper 240 Mg PO DAILY Spiriva Respimat Inh (Tiotropium Inh) 2.5 Mcg/Act Aero 2 Puff INH DAILY 2.5 mcg = 1 inhalation Oxygen tank (Oxygen) 1 Ea Tank 2 Liter BENITO.CANULA CONTINUOUS Oxygen Concentrator Portable Gaseous 2 L/min via Nasal Cannula Continuous For 99 months Advair Diskus Inh (Fluticasone-Salmeterol Inh) 250-50 Mcg/Blist Aer 1 Puff INH BID Rinse mouth after use. Active Ordered Medications Current Medications Medications (Trade) Dose Ordered Sig/Julia Route PRN Reason Start Time Stop Time Status Last Admin Dose Admin Lactated Ringer's 1,000 ml @ 30 mls/hr Q24H PRN IV SEE LABEL COMMENTS 01/05/18 12:15 01/08/18 12:14 Sodium Chloride 500 ml @ 30 mls/hr [id number] PRN IV SEE LABEL COMMENTS 01/05/18 12:15 01/08/18 12:14 Metoprolol Tartrate (Lopressor) 25 mg SEMICONDUCTOR ASSEMBLER PRN PO SEE LABEL COMMENTS 01/05/18 12:15 01/08/18 12:14 Povidone Iodine (Betadine 5% Antisepsis Kit) 1 applic SEMICONDUCTOR ASSEMBLER PRN EACH NARE SEE LABEL COMMENTS 01/05/18 12:15 01/08/18 12:14 Chlorhexidine Gluconate (Chlorhexidine 2% Cloth) 3 pack SEMICONDUCTOR ASSEMBLER PRN TOPICAL SEE LABEL COMMENTS 01/05/18 12:15 01/08/18 12:14 Insulin Human Regular (NovoLIN R INJ) See Protocol Table ... SEMICONDUCTOR ASSEMBLER PRN SQ SEE PROTOCOL TABLE 01/05/18 12:15 01/08/18 12:14 Cefazolin Sodium 2000 mg/Sodium Chloride 100 ml @ 200 mls/hr SEMICONDUCTOR ASSEMBLER IV 01/05/18 12:15 01/05/18 23:59 01/05/18 13:18 Sodium Chloride (NS Flush) 5 ml UNSCH PRN IV FLUSH SEE PROTOCOL TABLE 01/05/18 12:15 Heparin Sodium (Porcine) (Heparin Central Flush) 250 units UNSCH PRN IV FLUSH SEE PROTOCOL TABLE 01/05/18 12:15 Heparin Sodium (Porcine) (Heparin Central Flush) 500 units UNSCH IV FLUSH 01/05/18 12:15 Lactated Ringer's 1,000 ml @ 100 mls/hr Q10H IV 01/05/18 17:04 01/05/18 17:04 Acetaminophen/ Hydrocodone Bitart ([place] 5-325 Mg) 1 tab Q4H PRN PO PAIN SCALE 1 TO 5 01/05/18 17:15 Acetaminophen/ Hydrocodone Bitart ([place] 5-325 Mg) 2 tab Q4H PRN PO PAIN SCALE 6 TO 10 01/05/18 17:15 Ondansetron HCl (Zofran Inj) 4 mg Q4H PRN IV PUSH NAUSEA OR VOMITING 01/05/18 17:15 Naloxone HCl (Narcan Inj) 0.4 mg UNSCH PRN IV PUSH RESPIRATORY RATE LESS THAN 10 01/05/18 17:15 Diphenhydramine HCl (Benadryl Inj) 25 mg Q6H PRN IV PUSH ITCHING 01/05/18 17:15 Morphine Sulfate (Morphine 1 Mg/ ml HEALTH AND SAFETY INSPECTOR) 30 mg UNSCH IV 01/05/18 17:15 4/3/18 18:48 HEALTH AND SAFETY INSPECTOR Dosage Infused (Pha) 1 Q8HR .XX 01/05/18 22:00 Albuterol Sulfate (Proair Hfa Inh) 2 puff Q8HR WHILE AWAKE NEB PRN INH SHORTNESS OF BREATH 01/05/18 17:15 Amoxicillin/ Clavulanate Potassium (Augmentin) 875 mg BID PO 01/05/18 21:00 Apixaban (Eliquis) 5 mg BID PO 01/05/18 21:00 Atorvastatin Calcium (Lipitor) 40 mg HS PO 01/05/18 21:00 Cetirizine HCl (ZyrTEC) 10 mg DAILY PO 01/06/18 09:00 Diltiazem HCl (Cardizem Cd) 240 mg DAILY PO 01/06/18 09:00 Furosemide (Lasix) 20 mg BID@18 PO 01/05/18 18:00 Metformin HCl (Glucophage) 500 mg BIDPC PO 01/05/18 18:00 Prednisone (Deltasone) 20 mg DAILY PO 01/06/18 09:00 Budesonide/ Formoterol Fumarate (Symbicort 160-4.5 Mcg Inh) 2 puff BID INH 01/05/18 21:00 Tiotropium Spencer (Spiriva Inh) 18 mcg DAILY INH 01/06/18 09:00 Miscellaneous Information ALL NURSING DEPARTME... UNSCH PRN .XX SEE LABEL COMMENTS 01/05/18 17:05 01/06/18 17:04 Family History Mother had diabetes mellitus. Family history does include heart disease Social History Patient denies using tobacco or alcohol. Physical Exam Vital Signs Vital Signs Date Time Temp Pulse Resp B/P (MAP) Pulse Ox O2 Delivery O2 Flow Rate FiO2 01/05/18 19:00 68 18 120/65 (83) 98 Nasal Cannula 2 01/05/18 18:48 14 01/05/18 17:45 57 16 117/57 (77) 96 Nasal Cannula 2 01/05/18 17:30 57 16 105/51 (69) 97 Nasal Cannula 2 01/05/18 17:15 58 16 109/53 (71) 97 Nasal Cannula 2 01/05/18 17:04 98.4 56 14 108/54 (72) 100 Nasal Cannula 2 01/05/18 12:15 97.9 88 20 153/73 (99) 99 Physical Exam GENERAL: Well-nourished, well-developed patient. SKIN: Warm and dry. HEAD: Normocephalic. EYES: No scleral icterus. No injection or drainage. NECK: Supple, trachea midline. No JVD or lymphadenopathy. CARDIOVASCULAR: Regular rate and rhythm without murmurs, gallops, or rubs. RESPIRATORY: Breath sounds equal bilaterally. No accessory muscle use. GASTROINTESTINAL: Abdomen soft, non-tender, nondistended. MUSCULOSKELETAL: No cyanosis, or edema. BACK: Nontender without obvious deformity. NEURO EXAM: GCS: 15 Mental Status: The patient is alert and oriented to person, place, and time with normal speech. Cranial Nerves: Visual acuity intact bilaterally. Visual roy normal in all quadrants. Pupils are round, reactive to light. Extraocular movements are intact without ptosis. Hearing is normal bilaterally. Voice is normal. Tongue protrudes midline and moves symmetrically. Reflexes: Biceps, patellar, and Achilles are 2/4 bilaterally. No clonus. Laboratory Laboratory Tests Test 01/05/18 12:20 White Blood Count 7.4 Red Blood Count 4.02 Hemoglobin 12.6 Hematocrit 36.3 Mean Corpuscular Volume 90.1 Mean Corpuscular Hemoglobin 31.2 Mean Corpuscular Hemoglobin Concent 34.6 Red Cell Distribution Width 14.9 Platelet Count 197 Mean Platelet Volume 7.2 Neutrophils (%) (Auto) 70.2 Lymphocytes (%) (Auto) 21.0 Monocytes (%) (Auto) 7.5 Eosinophils (%) (Auto) 1.1 Basophils (%) (Auto) 0.2 Neutrophils # (Auto) 5.2 Lymphocytes # (Auto) 1.5 Monocytes # (Auto) 0.6 Eosinophils # (Auto) 0.1 Basophils # (Auto) 0.0 CBC Comment DIFF FINAL Differential Comment Blood Urea Nitrogen 16 Creatinine 0.92 Random Glucose 184 Calcium Level 8.8 Sodium Level 137 Potassium Level 3.6 Chloride Level 99 Carbon Dioxide Level 29.0 Anion Gap 9 Estimat Glomerular Filtration Rate 81 Result Diagram: 01/05/18 1220 01/05/18 1220 Assessment and Plan Assessment and Plan Multiple large ventral incisional hernias -Due to radical cystectomy with ileal conduit reconstruction -Status post exploratory laparotomy, Lysis of adhesions, Abdominal wall reconstruction with mesh (Chester mesh 20 x 30), Myocutaneous advancement flap with a transversus abdominis release -Management per surgeon COPD -Prednisone -Budesonide/ Formoterol Fumarate -Tiotropium Spencer -Continue supplemental oxygen Atrial flutter -Resume Eliquis if okay with the surgeon -Rate controlled with diltiazem HTN -Metoprolol as needed -Diltiazem and Lasix per home dosing Hyperglycemia -Insulin sliding scale -Restart metformin when back on the diet Dyslipidemia -Atorvastatin DVT GI prophylaxis -Adama's and SCDs -Eliquis -Pepcid Critical Care: The total critical care time was 35 minutes. Time to perform other separately billable procedures was not included in the critical care time. Grant Michelle MD Jan 05, 2018 7:58 pm
[2018-01-05 20:00] VITALS: BP 133/64; PULSE 74; RESP 26; TEMP 98.7; O2SAT 94
[2018-01-05] MEDS: APIXABAN 5 MG TABLET PO SCH ×2 (21:00→22:14)
[2018-01-05 22:00] VITALS: PULSE 74
[2018-01-05] MEDS: PCA - TOTAL MG MORPHINE DELIVERED PER SHIFT SCH (22:00)
[2018-01-05] MEDS: ATORVASTATIN 40 MG TAB PO SCH (22:14)
[2018-01-05] MEDS: AMOXICILLIN/CLAVULANATE K 875 MG TAB PO SCH (22:14)
[2018-01-05] MEDS: FUROSEMIDE 20 MG TAB PO SCH (22:14)
[2018-01-05] MEDS: BUDESONIDE-FORMOTEROL 160/4.5 MCG INHALER INH SCH (22:14)
[2018-01-05 22:30] VITALS: O2SAT 95
[2018-01-06] VITALS (14 sets, daily range): BP systolic 140–162; BP diastolic 63–73; PULSE 66–80; RESP 15–22; TEMP 97.8–98.8; O2SAT 95–99
[2018-01-06 04:51] LABS: AUTOMATED NEUTROPHIL # 7.6 TH/MM3 (1.8-7.7); BASOPHIL % 0.1 % (0.0-2.0); HEMATOCRIT 34.9 % (39.0-51.0); HEMOGLOBIN 11.9 GM/DL (13.0-17.0); LYMPH % 7.2 % (9.0-44.0); LYMPHOCYTE # 0.6 TH/MM3 (1.0-4.8); MEAN CELL VOLUME 91.1 FL (80.0-100.0); MEAN CORPUSCULAR HEMOGLOBIN 31.1 PG (27.0-34.0); MEAN CORPUSCULAR HGB CONC 34.1 % (32.0-36.0); MEAN PLATELET VOLUME 7.6 FL (7.0-11.0); MONO % 5.3 % (0.0-8.0); MONOCYTE # 0.5 TH/MM3 (0-0.9); NEUT % 87.4 % (16.0-70.0); PLATELET COUNT 190 TH/MM3 (150-450); RED BLOOD COUNT 3.83 MIL/MM3 (4.50-5.90); RED CELL DISTRIBUTION WIDTH 14.8 % (11.6-17.2); WHITE BLOOD COUNT 8.7 TH/MM3 (4.0-11.0)
[2018-01-06] MEDS: LACTATED RINGER'S 1000 ML INJ 1,000 ML IV SCH ×3 (04:55→23:04)
[2018-01-06 05:01] LABS: BICARBONATE 26.3 MEQ/L (21.0-32.0); CALCIUM 8.2 MG/DL (8.5-10.1); CREATININE 1.07 MG/DL (0.60-1.30)
[2018-01-06] MEDS: PCA - TOTAL MG MORPHINE DELIVERED PER SHIFT SCH ×3 (06:23→22:00)
[2018-01-06] MEDS: metFORMIN HCL 500 MG TAB PO SCH ×2 (08:29→18:16)
[2018-01-06] MEDS: AMOXICILLIN/CLAVULANATE K 875 MG TAB PO SCH ×2 (08:29→20:38)
[2018-01-06] MEDS: DILTIAZEM-CD 240 MG CAP ER PO SCH (08:29)
[2018-01-06] MEDS: FUROSEMIDE 20 MG TAB PO SCH ×2 (08:30→18:16)
[2018-01-06] MEDS: CETIRIZINE HCL 10 MG TAB PO SCH (08:30)
[2018-01-06] MEDS: predniSONE 20 MG TAB PO SCH (08:30)
[2018-01-06] MEDS: BUDESONIDE-FORMOTEROL 160/4.5 MCG INHALER INH SCH ×2 (08:36→20:39)
[2018-01-06] MEDS: TIOTROPIUM BROMIDE 18 MCG INH INH SCH (09:00)
--- NOTE | 2018-01-06 11:23 | HHI.PR ---
cc: Yrn Melgar MD Subjective Subjective Notes Resting in bed Feeling pretty good from the surgery No complains Objective Vitals/I&O Vital Signs Date Time Temp Pulse Resp B/P (MAP) Pulse Ox O2 Delivery O2 Flow Rate FiO2 01/06/18 10:27 99 Nasal Cannula 3.00 01/06/18 06:23 17 01/06/18 06:00 76 01/06/18 04:00 97.8 150/64 (92) Labs Laboratory Tests Test 01/05/18 12:20 01/05/18 19:55 01/06/18 03:04 White Blood Count 7.4 8.7 Red Blood Count 4.02 3.83 Hemoglobin 12.6 11.9 Hematocrit 36.3 34.9 Mean Corpuscular Volume 90.1 91.1 Mean Corpuscular Hemoglobin 31.2 31.1 Mean Corpuscular Hemoglobin Concent 34.6 34.1 Red Cell Distribution Width 14.9 14.8 Platelet Count 197 190 Mean Platelet Volume 7.2 7.6 Neutrophils (%) (Auto) 70.2 87.4 Lymphocytes (%) (Auto) 21.0 7.2 Monocytes (%) (Auto) 7.5 5.3 Eosinophils (%) (Auto) 1.1 0.0 Basophils (%) (Auto) 0.2 0.1 Neutrophils # (Auto) 5.2 7.6 Lymphocytes # (Auto) 1.5 0.6 Monocytes # (Auto) 0.6 0.5 Eosinophils # (Auto) 0.1 0.0 Basophils # (Auto) 0.0 0.0 CBC Comment DIFF FINAL DIFF FINAL Differential Comment Blood Urea Nitrogen 16 19 Creatinine 0.92 1.07 Random Glucose 184 236 Calcium Level 8.8 8.2 Sodium Level 137 136 Potassium Level 3.6 4.3 Chloride Level 99 100 Carbon Dioxide Level 29.0 26.3 Anion Gap 9 10 Estimat Glomerular Filtration Rate 81 68 Nasal Screen MRSA (PCR) MRSA NOT DETECTED Cardiovascular: Regular Lungs: Clear Abdomen: Other (OLMAN leaking and blood at inferior portion of incision; OLMAN replaced with RN Klaus---good seal; Urostomy with Richardson catheter in place ), Post-op tenderness Extremities: No edema A/P Assessment and Plan 72 year old male POD1 abdominal wall reconstruction -OLMAN leaking; replaced -Continue clear liquids -DC Richardson catheter in urostomy -PT eval and treat; OOB -Will plan to keep in [facility] today Annika Reyes/Entry Level Buyer GEOPHYSICAL PROSPECTING SURVEYOR Jan 06, 2018 11:23
--- NOTE | 2018-01-06 11:24 | HHI.PR ---
Subjective Subjective Notes "I feel GREAT!!!". pain controlled. breathing well. wants to get oob. Objective Vitals/I&O Vital Signs Date Time Temp Pulse Resp B/P (MAP) Pulse Ox O2 Delivery O2 Flow Rate FiO2 01/06/18 10:27 99 Nasal Cannula 3.00 01/06/18 06:23 17 01/06/18 06:00 76 01/06/18 04:00 97.8 150/64 (92) Labs Laboratory Tests Test 01/05/18 12:20 01/05/18 19:55 01/06/18 03:04 White Blood Count 7.4 8.7 Red Blood Count 4.02 3.83 Hemoglobin 12.6 11.9 Hematocrit 36.3 34.9 Mean Corpuscular Volume 90.1 91.1 Mean Corpuscular Hemoglobin 31.2 31.1 Mean Corpuscular Hemoglobin Concent 34.6 34.1 Red Cell Distribution Width 14.9 14.8 Platelet Count 197 190 Mean Platelet Volume 7.2 7.6 Neutrophils (%) (Auto) 70.2 87.4 Lymphocytes (%) (Auto) 21.0 7.2 Monocytes (%) (Auto) 7.5 5.3 Eosinophils (%) (Auto) 1.1 0.0 Basophils (%) (Auto) 0.2 0.1 Neutrophils # (Auto) 5.2 7.6 Lymphocytes # (Auto) 1.5 0.6 Monocytes # (Auto) 0.6 0.5 Eosinophils # (Auto) 0.1 0.0 Basophils # (Auto) 0.0 0.0 CBC Comment DIFF FINAL DIFF FINAL Differential Comment Blood Urea Nitrogen 16 19 Creatinine 0.92 1.07 Random Glucose 184 236 Calcium Level 8.8 8.2 Sodium Level 137 136 Potassium Level 3.6 4.3 Chloride Level 99 100 Carbon Dioxide Level 29.0 26.3 Anion Gap 9 10 Estimat Glomerular Filtration Rate 81 68 Nasal Screen MRSA (PCR) MRSA NOT DETECTED Cardiovascular: Regular Lungs: Clear Abdomen: Non-distended Wound Wound : Wound Location: Abdomen Appearance: Clean & Dry Dressing: VAC A/P Assessment and Plan POD1 abd wall reconstruction doing well oob leave on clears as i expect ileus. Yrn Melgar MD Jan 06, 2018 11:24
--- NOTE | 2018-01-06 13:23 | EKG ---
Date Performed: 01/05/2018 Time Performed: 12:25:25 PTAGE: 72 years EKG: Sinus rhythm WITH FREQUENT VENTRICULAR PREMATURE COMPLEXES MODERATE ST DEPRESSION ABNORMAL ECG PREVIOUS TRACING : 11/11/2016 12.06 DOCTOR: Rickey Huerta Interpretating Date/Time 01/06/2018 13:21:31
[2018-01-06] MEDS: MORPHINE SULFATE 30 MG/30 ML PCA IV SCH (14:48)
[2018-01-06] MEDS ORDERED: APIXABAN 5 MG TABLET PO SCH (16:00)
[2018-01-06] MEDS: ATORVASTATIN 40 MG TAB PO SCH (20:39)
[2018-01-07] VITALS (13 sets, daily range): BP systolic 149–177; BP diastolic 56–80; PULSE 72–95; RESP 21–27; TEMP 97.5–99; O2SAT 96–100
[2018-01-07] MEDS: PCA - TOTAL MG MORPHINE DELIVERED PER SHIFT SCH ×3 (06:00→22:25)
[2018-01-07] MEDS: AMOXICILLIN/CLAVULANATE K 875 MG TAB PO SCH ×2 (08:59→09:00)
[2018-01-07] MEDS: metFORMIN HCL 500 MG TAB PO SCH ×2 (08:59→18:14)
[2018-01-07] MEDS: APIXABAN 5 MG TABLET PO SCH ×2 (09:00→21:08)
[2018-01-07] MEDS: LACTATED RINGER'S 1000 ML INJ 1,000 ML IV SCH (09:00)
[2018-01-07] MEDS: CETIRIZINE HCL 10 MG TAB PO SCH (09:00)
[2018-01-07] MEDS: FUROSEMIDE 20 MG TAB PO SCH ×2 (09:00→18:13)
[2018-01-07] MEDS: TIOTROPIUM BROMIDE 18 MCG INH INH SCH (09:00)
[2018-01-07] MEDS: DILTIAZEM-CD 240 MG CAP ER PO SCH (09:00)
[2018-01-07] MEDS: predniSONE 20 MG TAB PO SCH (09:00)
[2018-01-07] MEDS: BUDESONIDE-FORMOTEROL 160/4.5 MCG INHALER INH SCH ×2 (09:00→21:08)
--- NOTE | 2018-01-07 10:01 | HHI.PR ---
Subjective Subjective Notes "I had a rough night last night." "Can I have some Zantac? I am getting full so fast with the clear liquids." Objective Vitals/I&O Vital Signs Date Time Temp Pulse Resp B/P (MAP) Pulse Ox O2 Delivery O2 Flow Rate FiO2 01/07/18 08:31 97 Nasal Cannula 2.00 01/07/18 08:00 76 01/07/18 08:00 98.0 21 Cardiovascular: Regular Lungs: Clear Abdomen: Other (OLMAN in place---no good seal---bloody drainage on inferior portion of dressing; Urostomy in place; abdomen mildy distended) Extremities: No edema A/P Assessment and Plan 72 year old male POD2 abdominal wall reconstruction -OLMAN leaking; will replace today -Continue clear liquids --encouraged sips; patient high risk for post op ileus -PT eval and treat; OOB -Eliquis -Will leave in [facility] for today and plan for transfer tomorrow if uneventful night Annika Reyes/Chief Service Observer ARNP Jan 07, 2018 10:01
[2018-01-07] MEDS: RANITIDINE HCL SYRUP 150 MG/10 ML UDC PO SCH ×2 (10:22→21:08)
--- NOTE | 2018-01-07 13:36 | PD.WCN.NOT ---
Wound Consult Description: Call received from ANNA Reyes regarding Olman dressing and urostomy appliance needing to be changed today. Communicated with: Patient Patient ANNA Reyes Dr Recommendation: Change urostomy appliance as needed Olman dressing may remain in place for up to 7 days and can be reinforced using transparent strips Additional Information: Patient seen on [address] for OLMAN dressing removal after being unable to obtain and maintain a seal. Urostomy appliance was removed from right side abdomen with OLMAN midline dressing removal. Both dressings removed using adhesive removal wipes. [place] noted to midline incision with minimal sanguinous drainage noted coming from in between approximated wound margins. One staple was noted on right side of midline incision and subsequently removed by ANNA Reyes using staple remover. Midline incision was cleansed thoroughly with NS and gauze and pat dry. Periwound and peristomal skin was prepped using Cavilon skin barrier film spray after cleansing and allowed to air dry. OLMAN dressing was placed and reinforced using transparent strips from OLMAN dressing kit. Convex appliance was then applied to urostomy and attached to the gravity drainage bag. Patient tolerated dressing/ostomy change well with GARBAGE TRUCK HELPER pump in use. Ostomy Type: Other (ileal conduit) Complete: Other (ostomy appliance change using patient own supplies) Additional information Urostomy is located on the right side abdomen, red, moist, moderately protruding and functioning with clear yellow urine noted in gravity drainage bag. Peristomal skin appears to be minimally irritated with those reddened areas left open to air and avoided with new pouching system. Jaaj Smiley [facility] Jan 07, 2018 13:36
[2018-01-07] MEDS: MORPHINE SULFATE 30 MG/30 ML PCA IV SCH (14:08)
[2018-01-07] MEDS: ATORVASTATIN 40 MG TAB PO SCH (21:08)
[2018-01-08] VITALS (11 sets, daily range): BP systolic 142–168; BP diastolic 65–71; PULSE 70–96; RESP 17–22; TEMP 97.7–99; O2SAT 93–99
[2018-01-08] MEDS: LACTATED RINGER'S 1000 ML INJ 1,000 ML IV SCH (01:50)
[2018-01-08] MEDS: PCA - TOTAL MG MORPHINE DELIVERED PER SHIFT SCH ×3 (05:53→21:24)
[2018-01-08] MEDS: MORPHINE SULFATE 30 MG/30 ML PCA IV SCH (08:15)
[2018-01-08] MEDS: APIXABAN 5 MG TABLET PO SCH ×2 (08:34→21:22)
[2018-01-08] MEDS: predniSONE 20 MG TAB PO SCH (08:34)
[2018-01-08] MEDS: RANITIDINE HCL SYRUP 150 MG/10 ML UDC PO SCH ×2 (08:34→21:00)
[2018-01-08] MEDS: DILTIAZEM-CD 240 MG CAP ER PO SCH (08:34)
[2018-01-08] MEDS: metFORMIN HCL 500 MG TAB PO SCH ×2 (08:35→17:50)
[2018-01-08] MEDS: FUROSEMIDE 20 MG TAB PO SCH ×2 (08:35→17:50)
[2018-01-08] MEDS: CETIRIZINE HCL 10 MG TAB PO SCH (08:35)
[2018-01-08] MEDS: TIOTROPIUM BROMIDE 18 MCG INH INH SCH (08:35)
[2018-01-08] MEDS: BUDESONIDE-FORMOTEROL 160/4.5 MCG INHALER INH SCH ×2 (08:35→21:22)
--- NOTE | 2018-01-08 10:22 | HHI.PR ---
Subjective Subjective Notes feels "great", minimal pain (1-2). lots of flatus. ready to move around Objective Vitals/I&O Vital Signs Date Time Temp Pulse Resp B/P (MAP) Pulse Ox O2 Delivery O2 Flow Rate FiO2 01/08/18 08:15 22 01/08/18 07:15 95 3.00 01/08/18 06:00 70 01/08/18 04:00 97.7 142/65 (90) 01/08/18 00:57 Nasal Cannula Abdomen: Non-distended, Post-op tenderness Wound Wound : Wound Location: Abdomen Appearance: Clean & Dry Dressing: VAC A/P Assessment and Plan POD3 abd wall reconstruction doing well oob advance diet, transfer to floor start po pain meds, DC STAMP MACHINE SERVICER Thursday Yrn Melgar MD Jan 08, 2018 10:22
[2018-01-08] MEDS: ATORVASTATIN 40 MG TAB PO SCH (21:23)
[2018-01-09 00:07] VITALS: BP 147/66; PULSE 68; RESP 18; TEMP 97.8; O2SAT 98
[2018-01-09 04:09] VITALS: BP 158/71; PULSE 72; RESP 20; TEMP 97.8; O2SAT 96
[2018-01-09] MEDS: PCA - TOTAL MG MORPHINE DELIVERED PER SHIFT SCH ×3 (05:28→20:10)
[2018-01-09] MEDS: LACTATED RINGER'S 1000 ML INJ 1,000 ML IV SCH ×2 (05:28→20:09)
[2018-01-09] MEDS: MORPHINE SULFATE 30 MG/30 ML PCA IV SCH (06:56)
[2018-01-09 08:00] VITALS: BP 147/65; PULSE 64; RESP 16; TEMP 97.6; O2SAT 95
[2018-01-09] MEDS: FUROSEMIDE 20 MG TAB PO SCH ×2 (09:07→17:35)
[2018-01-09] MEDS: metFORMIN HCL 500 MG TAB PO SCH ×2 (09:07→17:36)
[2018-01-09] MEDS: predniSONE 20 MG TAB PO SCH (09:07)
[2018-01-09] MEDS: DILTIAZEM-CD 240 MG CAP ER PO SCH (09:07)
[2018-01-09] MEDS: ACETAMINOPHEN/HYDROcodone 325 MG/5 MG TAB PO PRN ×4 (09:08→21:29)
[2018-01-09] MEDS: CETIRIZINE HCL 10 MG TAB PO SCH (09:08)
[2018-01-09] MEDS: APIXABAN 5 MG TABLET PO SCH ×2 (09:08→20:10)
[2018-01-09 12:00] VITALS: BP 132/58; PULSE 73; RESP 16; TEMP 97.7; O2SAT 94
[2018-01-09] MEDS: TIOTROPIUM BROMIDE 18 MCG INH INH SCH (12:53)
[2018-01-09] MEDS: BUDESONIDE-FORMOTEROL 160/4.5 MCG INHALER INH SCH ×2 (12:53→20:11)
[2018-01-09] MEDS: RANITIDINE HCL SYRUP 150 MG/10 ML UDC PO SCH ×2 (12:54→20:10)
--- NOTE | 2018-01-09 14:01 | HHI.PR ---
cc: Artis Junior MD Subjective Subjective Notes DAILY PROGRESS NOTE FOR SURGICAL ATTENDING, DR. ARTIS JUNIOR I feel good I am tolerating my diet my iileoconduit is working Objective Vitals/I&O Vital Signs Date Time Temp Pulse Resp B/P (MAP) Pulse Ox O2 Delivery O2 Flow Rate FiO2 01/09/18 13:03 96 Nasal Cannula 3.00 01/09/18 12:00 97.7 73 16 132/58 (82) Cardiovascular: Regular Lungs: Clear Abdomen: Non-distended, Post-op tenderness Extremities: Perfused Wound Wound : Wound Location: Abdomen ([place] dressing intact ileal conduit with ileal conduit hernia functional) A/P Assessment and Plan POD4 abd wall reconstruction doing well oob advance diet, transfer to floor start po pain meds which he is tolerating Discharge Planning Depending on clinical status discharge on Thursday or Thursday Attending Statement NOTE FOR SURGICAL ATTENDING, DR. ARTIS JUNIOR I attest that I had a [id number] encounter with the patient on the same day, and personally performed and documented my assessment and findings in the medical record. The following services were provided during this hospital visit: Chart data review, vital sign assessments/reviewing monitor data Review of consultations notes if present. Medication orders/review and/or management Ordering and/or reviewing lab tests Ordering and/or interpreting/reviewing x-rays and/or diagnostic studies Care of the patient and discussion of the patient with the care team Documentation time To help prompt me to consider important information that might be impacting today's encounter and assessment, Information from prior notes written by myself or my colleagues may have been "brought forward/copy and pasted" into today's note. Artis Junior MD Jan 09, 2018 14:01
[2018-01-09 16:00] VITALS: BP 165/60; PULSE 80; RESP 16; TEMP 97.4; O2SAT 93
[2018-01-09 20:00] VITALS: BP 166/77; PULSE 79; RESP 16; TEMP 97.6; O2SAT 95
[2018-01-09] MEDS: ATORVASTATIN 40 MG TAB PO SCH (20:10)
[2018-01-10] VITALS: BP 162/70; PULSE 68; RESP 16; TEMP 97.8; O2SAT 95
[2018-01-10] MEDS: ACETAMINOPHEN/HYDROcodone 325 MG/5 MG TAB PO PRN ×4 (01:11→20:26)
[2018-01-10] MEDS: PCA - TOTAL MG MORPHINE DELIVERED PER SHIFT SCH (04:51)
[2018-01-10 08:00] VITALS: BP 146/66; PULSE 73; RESP 18; TEMP 97.7; O2SAT 96
[2018-01-10] MEDS: BUDESONIDE-FORMOTEROL 160/4.5 MCG INHALER INH SCH ×2 (08:27→20:23)
[2018-01-10] MEDS: TIOTROPIUM BROMIDE 18 MCG INH INH SCH (08:27)
[2018-01-10] MEDS: RANITIDINE HCL SYRUP 150 MG/10 ML UDC PO SCH ×2 (08:28→20:25)
[2018-01-10] MEDS: metFORMIN HCL 500 MG TAB PO SCH ×2 (08:29→17:23)
[2018-01-10] MEDS: predniSONE 20 MG TAB PO SCH (08:29)
[2018-01-10] MEDS: DILTIAZEM-CD 240 MG CAP ER PO SCH (08:29)
[2018-01-10] MEDS: FUROSEMIDE 20 MG TAB PO SCH ×2 (08:29→17:23)
[2018-01-10] MEDS: CETIRIZINE HCL 10 MG TAB PO SCH (08:30)
[2018-01-10] MEDS: APIXABAN 5 MG TABLET PO SCH ×2 (08:30→20:24)
--- NOTE | 2018-01-10 09:37 | HHI.PR ---
Subjective Subjective Notes no issues, binder is off, tolerating diet, +f no bm Objective Vitals/I&O Vital Signs Date Time Temp Pulse Resp B/P (MAP) Pulse Ox O2 Delivery O2 Flow Rate FiO2 01/10/18 08:00 97.7 73 18 146/66 (92) 96 01/09/18 20:00 Nasal Cannula 3.00 Abdomen: Other (incisonal tenderness roula good sxn, ilioconduit viable) A/P Assessment and Plan POD5 abd wall reconstruction doing well oob advance diet, d/c plan tomorrow encourage Renzo Mahoney MD Jan 10, 2018 09:37
[2018-01-10 12:00] VITALS: BP 149/61; PULSE 94; RESP 18; TEMP 98.1; O2SAT 94
[2018-01-10] MEDS: LACTATED RINGER'S 1000 ML INJ 1,000 ML IV SCH ×2 (13:50→17:14)
[2018-01-10 16:00] VITALS: BP 134/58; PULSE 86; RESP 18; TEMP 98.6; O2SAT 95
[2018-01-10 20:00] VITALS: BP 174/76; PULSE 103; RESP 20; TEMP 98.6; O2SAT 96
[2018-01-10] MEDS: ATORVASTATIN 40 MG TAB PO SCH (20:25)
[2018-01-10 21:17] VITALS: BP 162/69
[2018-01-11] VITALS: BP 150/66; PULSE 74; RESP 18; TEMP 98.4; O2SAT 98
[2018-01-11] MEDS: ACETAMINOPHEN/HYDROcodone 325 MG/5 MG TAB PO PRN ×3 (00:13→10:57)
[2018-01-11] MEDS: TIOTROPIUM BROMIDE 18 MCG INH INH SCH (07:56)
[2018-01-11] MEDS: predniSONE 20 MG TAB PO SCH (07:58)
[2018-01-11] MEDS: BUDESONIDE-FORMOTEROL 160/4.5 MCG INHALER INH SCH (07:58)
[2018-01-11] MEDS: CETIRIZINE HCL 10 MG TAB PO SCH (07:58)
[2018-01-11] MEDS: DILTIAZEM-CD 240 MG CAP ER PO SCH (07:58)
[2018-01-11] MEDS: FUROSEMIDE 20 MG TAB PO SCH (07:58)
[2018-01-11] MEDS: metFORMIN HCL 500 MG TAB PO SCH (07:58)
[2018-01-11] MEDS: APIXABAN 5 MG TABLET PO SCH (07:58)
--- NOTE | 2018-01-11 07:58 | HHI.FF ---
Face to Face Verification Diagnosis: (1) S/P hernia repair Physical Therapy Order: Evaluate and Treat, Improve ambulation, Strength and gait training Instructions: No restrictions; avoid stress to abdominal wall muscle Home Health Nursing Order: Wound care and dressing changes Nursing assessment with vital signs Instructions: Dry primapore dressing to midline incision Continued urostomy care I have seen patient David EdwardsJr on 01/11/18. My clinical findings support the need for the requested home health care services because: Limited ability to care for self High risk of falls I certify that my clinical findings support that this patient is homebound because: Post-op weakness Annika ReyesP/Licensed Prosthetist/Orthotist DOCUMENT ANALYST Jan 11, 2018 07:58
[2018-01-11 08:00] VITALS: BP_SYST 131; BP_SYST 141; BP_DIAS 64; BP_DIAS 71; PULSE 79; PULSE 80; RESP 18; TEMP 98; TEMP 98.2; O2SAT 96; O2SAT 99
[2018-01-11] MEDS ORDERED: MAGNESIUM HYDROXIDE SUSP 30 ML CUP PO ONE (08:00)
[2018-01-11] MEDS ORDERED: HYDR-3516 PO (08:01)
[2018-01-11] MEDS: RANITIDINE HCL SYRUP 150 MG/10 ML UDC PO SCH (08:02)
--- NOTE | 2018-01-11 10:32 | HHI.DS ---
Discharge Summary Admission Date Jan 05, 2018 at 17:07 Discharge Date: Jan 11, 2018 Admitting Diagnosis Brief History 72 year old male s/p abdominal wall reconstruction PE at Discharge Alert and awake Resp: CTAB Cardio: afib Abd: OLMAN removed; dry primapore placed; abdomen soft Hospital Course This is a 72 year old male s/p abdominal wall reconstruction. The patient's diet was advanced as tolerated. The patient's pain was controlled using oral pain medications. He was restarted on his oral anticoagulation medications. He was able to ambulate. He is going home with home health services. He will follow up in the office next Thursday with Dr. Melgar. Pt Condition on Discharge: Good Discharge Disposition: Disch w/ Home Health Serv Discharge Instructions DIET: Follow Instructions for: As Tolerated, No Restrictions Activities you can perform: Regular-No Restrictions Other Activity Instructions: Okay to shower Continue urostomy care Annika Reyes/Answerer ARNP Jan 11, 2018 10:32
== END 2018-01-11 11:34 | disposition home health service (06) | DRG 336 ==
LOC: HSDC 11:23 → HSDI 17:07 → N03B 20:02 → N07A 01-08 15:11
PROVIDERS: ADMIT Surgery Trauma Surgery; ATTEND Surgery Trauma Surgery
PROC: 0WUF0JZ Supplement Abdominal Wall with Synthetic Substitute, Open Approach (ICD-10-PCS; 2018-01-05)
PROC: 0KX Muscles, Transfer (ICD-10-PCS; 2018-01-05)
PROC: 0KX Muscles, Transfer (ICD-10-PCS; 2018-01-05)
PROC: 0DN80ZZ Release Small Intestine, Open Approach (ICD-10-PCS; principal; 2018-01-05 13:21)
DX: K43.2 Incisional hernia without obstruction or gangrene (principal); I48.92 Unspecified atrial flutter; E11.65 Type 2 diabetes mellitus with hyperglycemia; Z99.81 Dependence on supplemental oxygen; J44.9 Chronic obstructive pulmonary disease, unspecified; Z93.59 Other cystostomy status; K43.5 Parastomal hernia without obstruction or gangrene; I10 Essential (primary) hypertension; H91.90 Unspecified hearing loss, unspecified ear; K66.0 Peritoneal adhesions (postprocedural) (postinfection); E78.5 Hyperlipidemia, unspecified; Z79.84 Long term (current) use of oral hypoglycemic drugs; Z92.3 Personal history of irradiation; I25.2 Old myocardial infarction; Z85.51 Personal history of malignant neoplasm of bladder; Z87.891 Personal history of nicotine dependence; Z92.21 Personal history of antineoplastic chemotherapy
CPT/HCPCS: 80048; 85025; 87641; 93005; 94150; C1765; C1781; J0131; J0690; J1100; J1642; J2250; J2270; J2405; J3010; J7050; J7120; J7512

== ENCOUNTER 2018-01-14 21:00 | Emergency (ER) | payer MEDICARE, OTHER ==
[~2018-01-14] VITALS: Ht 167.6 cm; Wt 73.0 kg
[~2018-01-14 21:00] MED LIST changes: -AMOX875T2 PO; +HYDR-3516 PO; +PRED20 PO
[2018-01-14 21:41] VITALS: BP 128/67; PULSE 82; RESP 18; TEMP 99.3; O2SAT 92
[2018-01-14] MEDS ORDERED: SODIUM CHLORIDE 0.9% FLUSH 10 ML FLUSH IV FLUSH PRN (23:30)
--- NOTE | 2018-01-14 23:49 | PD ---
HPI Chief Complaint: Bleeding Time Seen by Provider: 23:29 Travel History International Travel<30 days: No Contact w/Intl Traveler<30days: No Traveled to known affect area: No History of Present Illness HPI 72-year-old male presents to the emergency department by family transportation for evaluation of bleeding from postoperative incision site. Patient on 01/05/18 underwent exploratory laparotomy with lysis of adhesions and abdominal wall reconstruction with TIGER mesh 20 x 30 as well as mucocutaneous advancement flap with a transverse abdominis release due to multiple large ventral incisional heard hernias status post radical cystectomy with ileal conduit reconstruction. Patient also has history of COPD bladder cancer hypertension atrial flutter on Eliquis and insomnia. Patient has been on Eliquis postoperatively and has done well noticing only a few areas of serosanguineous spotting on the most inferior postsurgical site dressings. According to the patient and spouse this evening around 02/06/1930 they noted there is an increased amount of blood to the area of the dressing and due to change in the dressing 2-3 times and then finally a fourth time decided to come to the emergency room for evaluation. They did not contact the patient's surgeon. Patient has had no fever no chills no nausea no vomiting no abdominal pain no foul-smelling drainage no purulent drainage no near syncope or syncope. PFSH Past Medical History Narrative Medical Eliquis therapy hypertension GERD arthritis atrial fibrillator bladder cancer CAD [place] diabetes COPD cystectomy prostatectomy lymph node excision herniorrhaphy ileostomy cardiac catheterization dental extraction; no tobacco use; nursing notes reviewed Hx Anticoagulant Therapy: Yes (ELIQUIS) Arthritis: Yes Asthma: No Autoimmune Disease: No Heart Rhythm Problems: Yes (a-fib) Cancer: Yes (bladder) Cardiovascular Problems: Yes ([place]) High Cholesterol: Yes Chemotherapy: Yes Chest Pain: No Congestive Heart Failure: No COPD: Yes Coronary Artery Disease: Yes Diabetes: Yes (METFORMIN) Diminished Hearing: No Endocrine: No GERD: Yes Genitourinary: Yes (bladder cancer) Hepatitis: No Hiatal Hernia: No Hypertension: Yes Immune Disorder: No Implanted Vascular Access Dvce: Yes (right infusa port placed 02/09/17) Kidney Stones: No Musculoskeletal: No Neurologic: No Psychiatric: No Reproductive: No Radiation Therapy: No Renal Failure: No Sleep Apnea: No (not diagnosed) Thyroid Disease: No Past Surgical History Abdominal Surgery: Yes (bladder ca, prostate, lymphnode removal, hernia repair , illeostomy, abd wal) AICD: No Appendectomy: Yes Arteriovenous Shunt: No Body Medical Devices: STOMA RUQ Cardiac Surgery: Yes (cardiac cath) Ear Surgery: No Endocrine Surgery: No Eye Surgery: Yes (cataracts) Genitourinary Surgery: Yes (bladder removed and prostate removed) Gynecologic Surgery: No Insulin Pump: No Joint Replacement: No Oral Surgery: Yes (teeth extraction) Pacemaker: No Thoracic Surgery: No Other Surgery: Yes Social History Alcohol Use: No (hx of etoh) Tobacco Use: No (quit in 2003 smoked cigs) Substance Use: No Allergies-Medications (Allergen,Severity, Reaction): Coded Allergies: ibuprofen (Unverified Allergy, Severe, swelling, 01/14/18) prednisone (Unverified Allergy, Severe, Chest Pain, 01/14/18) ELEVATED HT RATE pantoprazole (Unverified Allergy, Intermediate, Arrhythmias, 01/14/18) Reported Meds & Prescriptions Reported Meds & Active Scripts Active Hydrocodone-Acetamin 5-325 mg (Hydrocodone/Acetaminophen) 5 Mg-325 Mg Tablet 1 Tab PO Q4H PRN Furosemide 20 Mg Tab 20 Mg PO BID@18 Eliquis (Apixaban) 5 Mg Tab 5 Mg PO BID Reported Prednisone 20 Mg Tab 20 Mg PO DIRECTED 40 MG twice a day x 3 days, then 20 MG daily x 3 days, then 10 MG daily x 3 days Cetirizine (Cetirizine HCl) 10 Mg Tab 10 Mg PO DAILY Metformin (Metformin HCl) 500 Mg Tab 500 Mg PO BIDPC Proair Hfa 8.5 GM Inh (Albuterol Sulfate) 90 Mcg/Act Aer 2 Puff INH Q4-6H PRN 108 mcg/actuation Lipitor (Atorvastatin Calcium) 40 Mg Tab 40 Mg PO HS Tiazac (Diltiazem ER 24 HR) 240 Mg Caper 240 Mg PO DAILY Spiriva Respimat Inh (Tiotropium Inh) 2.5 Mcg/Act Aero 2 Puff INH DAILY 2.5 mcg = 1 inhalation Oxygen tank (Oxygen) 1 Ea Tank 2 Liter BENITO.CANULA CONTINUOUS Oxygen Concentrator Portable Gaseous 2 L/min via Nasal Cannula Continuous For 99 months Advair Diskus Inh (Fluticasone-Salmeterol Inh) 250-50 Mcg/Blist Aer 1 Puff INH BID Rinse mouth after use. Review of Systems Except as stated in HPI: all other systems reviewed are Neg General / Constitutional: No: Fever, Chills HENT: No: Congestion Cardiovascular: No: Chest Pain or Discomfort Respiratory: No: Shortness of Breath Gastrointestinal: No: Abdominal Pain Genitourinary: No: Dysuria, Decreased Urinary Output Musculoskeletal: No: Myalgias, Arthralgias Skin: No Rash Psychiatric: No: Anxiety Hematologic/Lymphatic: No: Lymph Node Enlargement Physical Exam Narrative GENERAL: Well-developed well-nourished male no acute distress no respiratory distress; T: 99.3F; HR: 82; RR: 18; BP: 128/67; O2sat 2L/m NC: 92% SKIN: Warm and dry. HEAD: Normocephalic. EYES: No scleral icterus. No injection or drainage. NECK: Supple, trachea midline. No JVD or lymphadenopathy. CARDIOVASCULAR: Regular rate and rhythm without murmurs, gallops, or rubs. RESPIRATORY: Breath sounds equal bilaterally. No accessory muscle use. GASTROINTESTINAL: Abdomen soft, non-tender, nondistended. Lower abdominal wall /pannus with mild ecchymosis and attention to the inferior postoperative incision site identifies noah in place with 2 noah dislodged and small single pinpoint wound with serous serosanguineous drainage no purulent drainage. MUSCULOSKELETAL: No cyanosis, or edema. BACK: Nontender without obvious deformity. No CVA tenderness. Data Data Last Documented VS Vital Signs Date Time Temp Pulse Resp B/P (MAP) Pulse Ox O2 Delivery O2 Flow Rate FiO2 01/15/18 00:15 20 97 Room Air 01/14/18 21:41 99.3 82 128/67 (87) Orders Orders Basic Metabolic Panel (Bmp) (01/14/18 23:29) Complete Blood Count With Diff (01/14/18 23:29) Prothrombin Time / Inr (Pt) (01/14/18 23:29) Act Partial Throm Time (Ptt) (01/14/18 23:29) Iv Access Insert/Monitor (01/14/18 23:29) Ecg Monitoring (01/14/18 23:29) Oximetry (01/14/18 23:29) Sodium Chloride 0.9% Flush (Ns Flush) (01/14/18 23:30) Type And Screen (01/14/18 23:29) Ct Abd/Pel W Iv Contrast(Rout) (01/15/18 00:18) Iohexol 350 Inj (Omnipaque 350 Inj) (01/15/18 00:54) Wound Culture And Gram Stain (01/15/18 02:15) Potassium Chloride (Kcl) (01/15/18 02:15) Labs Laboratory Tests Test 01/15/18 00:00 White Blood Count 13.0 TH/MM3 Red Blood Count 3.17 MIL/MM3 Hemoglobin 9.9 GM/DL Hematocrit 28.4 % Mean Corpuscular Volume 89.5 FL Mean Corpuscular Hemoglobin 31.1 PG Mean Corpuscular Hemoglobin Concent 34.7 % Red Cell Distribution Width 14.6 % Platelet Count 389 TH/MM3 Mean Platelet Volume 6.4 FL Neutrophils (%) (Auto) 79.3 % Lymphocytes (%) (Auto) 10.2 % Monocytes (%) (Auto) 6.6 % Eosinophils (%) (Auto) 1.0 % Basophils (%) (Auto) 2.9 % Neutrophils # (Auto) 10.3 TH/MM3 Lymphocytes # (Auto) 1.3 TH/MM3 Monocytes # (Auto) 0.9 TH/MM3 Eosinophils # (Auto) 0.1 TH/MM3 Basophils # (Auto) 0.4 TH/MM3 CBC Comment DIFF FINAL Differential Comment Prothrombin Time 12.0 SEC Prothromb Time International Ratio 1.2 RATIO Activated Partial Thromboplast Time 31.4 SEC Blood Urea Nitrogen 20 MG/DL Creatinine 1.00 MG/DL Random Glucose 196 MG/DL Calcium Level 8.4 MG/DL Sodium Level 131 MEQ/L Potassium Level 3.1 MEQ/L Chloride Level 91 MEQ/L Carbon Dioxide Level 35.1 MEQ/L Anion Gap 5 MEQ/L Estimat Glomerular Filtration Rate 73 ML/MIN MDM Medical Decision Making Medical Screen Exam Complete: Yes Emergency Medical Condition: Yes Medical Record Reviewed: Yes Interpretation(s) CBC & BMP Diagram 01/15/18 00:00 Calcium Level 8.4 L Vital Signs Date Time Temp Pulse Resp B/P (MAP) Pulse Ox O2 Delivery O2 Flow Rate FiO2 01/15/18 00:15 20 97 Room Air 01/14/18 21:41 99.3 82 18 128/67 (87) 92 Differential Diagnosis Postoperative bleeding, seroma, wound dehiscence, wound infection, anemia, postoperative abscess, coagulopathy Narrative Course [id number] access specimens collected and sent for resulting patient appears to have postoperative bleeding secondary to probable wound dehiscence with seroma with serous serosanguineous fluid collection to the inferior aspect of the abdominal wall incision postoperatively. Patient is on Eliquis therapy for history of atrial flutter fibrillation. Patient's vital signs are stable at this time. Patient is otherwise asymptomatic. Patient identified to have mild hyponatremia of 131 hypokalemia of 3.1; nonspecific leukocytosis white count 13,000; however hemoglobin is 9.9 and on 01/06/18 hemoglobin was 11.9 At 12:35 AM patient has gone to CT for imaging Physician Communication Physician Communication call placed to Dr Melgar--discussed with Dr Galarza --follow up 01/15/[address] Melgar Diagnosis Primary Impression: Abdominal wall seroma Qualified Codes: T88.8XXA - Other specified complications of surgical and medical care, not elsewhere classified, initial encounter; T79.2XXA - Traumatic secondary and recurrent hemorrhage and seroma, initial encounter Additional Impressions: Hypokalemia Hyponatremia Referrals: Yrn Melgar MD 1 day Patient Instructions: General Instructions Additional Instructions: Follow-up with your surgeon 1 day call office in a.m. to schedule follow-up appointment 01/15/18 Continue current medications as chronically prescribed If recurrent bleeding apply direct pressure and return to the emergency department for evaluation Follow-up with primary care provider call office to schedule appointment Monitor temperature for fever 100.4F or greater take acetaminophen/Tylenol as needed Add potassium to dietary intake. Disposition: 01 DISCHARGE HOME Condition: Stable Noris Fox MD Jan 14, 2018 23:48
[2018-01-15 00:21] LABS: AUTOMATED NEUTROPHIL # 10.3 TH/MM3 (1.8-7.7); BASOPHIL # 0.4 TH/MM3 (0-0.2); BASOPHIL % 2.9 % (0.0-2.0); EOSINOPHIL # 0.1 TH/MM3 (0-0.4); HEMATOCRIT 28.4 % (39.0-51.0); HEMOGLOBIN 9.9 GM/DL (13.0-17.0); LYMPH % 10.2 % (9.0-44.0); LYMPHOCYTE # 1.3 TH/MM3 (1.0-4.8); MEAN CELL VOLUME 89.5 FL (80.0-100.0); MEAN CORPUSCULAR HEMOGLOBIN 31.1 PG (27.0-34.0); MEAN CORPUSCULAR HGB CONC 34.7 % (32.0-36.0); MEAN PLATELET VOLUME 6.4 FL (7.0-11.0); MONO % 6.6 % (0.0-8.0); MONOCYTE # 0.9 TH/MM3 (0-0.9); NEUT % 79.3 % (16.0-70.0); PLATELET COUNT 389 TH/MM3 (150-450); RED BLOOD COUNT 3.17 MIL/MM3 (4.50-5.90); RED CELL DISTRIBUTION WIDTH 14.6 % (11.6-17.2)
[2018-01-15 00:26] LABS: BICARBONATE 35.1 MEQ/L (21.0-32.0); CALCIUM 8.4 MG/DL (8.5-10.1)
[2018-01-15 00:31] LABS: INTERNATIONAL NORMALIZED RATIO 1.2 RATIO
[2018-01-15] MEDS ORDERED: IOHEXOL 350 MG/ML 10 ML VIAL (for RAD DIAG) IVCONTRAST ONE (00:54)
[2018-01-15 01:12] VITALS: BP 124/56; PULSE 82; RESP 20; O2SAT 98
--- NOTE | 2018-01-15 01:40 | RADRPT ---
EXAM DATE/TIME: 01/15/2018 00:37 [facility] COMPARISON: CT ABDOMEN & PELVIS W/O CONTRAST, November 19, 2016, 20:12. INDICATIONS : Post operative abdominal pain and incisional bleeding. Testicular swelling. IV CONTRAST: 100 cc Omnipaque 350 (iohexol) IV ORAL CONTRAST: No oral contrast ingested. RADIATION DOSE: 11.39 CTDIvol (mGy) MEDICAL HISTORY : Carcinoma, bladder. Hernia, umbilical. Diabetes mellitus type 2. SURGICAL HISTORY : Umbilical hernia repair. Appendectomy.Prostatectomy. ENCOUNTER: Initial ACUITY: 2 days PAIN SCALE: 7/10 LOCATION: Bilateral lower quadrant TECHNIQUE: Volumetric scanning of the abdomen and pelvis was performed. Using automated exposure control and ad justment of the mA and/or kV according to patient size, radiation dose was kept as low as reasonably achievable to obtain optimal diagnostic quality images. DICOM format image data is available electro nically for review and comparison. FINDINGS: LOWER LUNGS: Emphysema and mild parenchymal scarring or atelectasis in the right posterior lung base. LIVER: Several tiny liver cysts. No suspicious mass. No biliary ductal dilatation. Tiny gallstones present. SPLEEN: Multiple granulomatous calcifications. No suspicious mass. Normal size. PANCREAS: Within normal limits. KIDNEYS: Slight bilateral hydronephrosis and hydroureter. ADRENAL GLANDS: Within normal limits. VASCULAR: There is no aortic aneurysm. BOWEL/MESENTERY: Right lower quadrant colostomy. No abnormal dilatation of bowel. No focal intraperitoneal inflammator y changes. ABDOMINAL WALL: Low abdominal midline skin noah. Deep to the noah, there is a thin, elongated deep subcutaneous tissue fluid collection which is presumably postoperative seroma. RETROPERITONEUM: There is no lymphadenopathy. BLADDER: Surgically absent REPRODUCTIVE: Prostate surgically absent INGUINAL: There is no lymphadenopathy or hernia. MUSCULOSKELETAL: Within normal limits for patient age. CONCLUSION: Interval colostomy. Recent surgery with thin probable seroma in the deep subcutaneous tissues of the low anterior abdomin al wall. Harris Valadez MD on January 15, 2018 at 1:29 Board Certified Radiologist. This report was verified electronically.
[2018-01-15 01:42] VITALS: BP 128/58; PULSE 78; RESP 20; O2SAT 97
[2018-01-15 02:12] VITALS: BP 129/56; PULSE 85; RESP 20; O2SAT 97
[2018-01-15] MEDS ORDERED: POTASSIUM CHLORIDE 20 MEQ CONTROLLED RELEASE TAB PO ONE (02:15)
[2018-01-15 03:40] VITALS: BP 133/52
== END 2018-01-15 04:09 | disposition home or self-care (01) ==
LOC: PHED 21:00
DX: L76.34 Postprocedural seroma of skin and subcutaneous tissue following other procedure (principal); Y83.8 Other surgical procedures as the cause of abnormal reaction of the patient, or of later complication, without mention of misadventure at the time of the procedure; E87.6 Hypokalemia; E87.1 Hypo-osmolality and hyponatremia; I48.92 Unspecified atrial flutter; I48.91 Unspecified atrial fibrillation; I10 Essential (primary) hypertension; E11.9 Type 2 diabetes mellitus without complications; I25.10 Atherosclerotic heart disease of native coronary artery without angina pectoris
CPT/HCPCS: 74177; 80048; 85025; 85610; 85730; 86850; 86900; 86901; 87070; 99284; J1642; Q9967

== ENCOUNTER 2018-01-21 17:27 | Emergency (ER) | payer MEDICARE, OTHER ==
[~2018-01-21] VITALS: Ht 165.1 cm; Wt 69.0 kg
[2018-01-21 17:33] VITALS: BP 150/69; PULSE 69; RESP 20; TEMP 98.2; O2SAT 95
[2018-01-21] MEDS ORDERED: SODIUM CHLORIDE 0.9% FLUSH 10 ML FLUSH IVF PRN (18:15)
--- NOTE | 2018-01-21 18:18 | PD ---
HPI Chief Complaint: Diabetic Time Seen by Provider: 18:01 Travel History International Travel<30 days: No Contact w/Intl Traveler<30days: No Traveled to known affect area: No History of Present Illness HPI 72-year-old male with history of COPD, CHF, hypertension, hyperlipidemia, bladder/prostate cancer status post radical cystectomy with ileal conduit in November 2016, ventral hernia repair on 12/05/17 complicated by abdominal wall seroma/hematoma, a flutter on Eliquis, diabetes on metformin, here for evaluation of elevated blood sugar. 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 He states that 3 days ago he checked his blood sugar and it was 420. When he checked it today his machine reading was over the upper limits of the machine. He states he feels well otherwise. Cough has been improving since being on the Medrol Dosepak as well as antibiotic. He denies fevers or chills. No abdominal pain. PFSH Past Medical History Hx Anticoagulant Therapy: Yes (ELIQUIS) Arthritis: Yes Asthma: No Autoimmune Disease: No Heart Rhythm Problems: Yes (a-fib) Cancer: Yes (bladder) Cardiovascular Problems: Yes ([place]) High Cholesterol: Yes Chemotherapy: Yes Chest Pain: No Congestive Heart Failure: Yes COPD: Yes Coronary Artery Disease: Yes Diabetes: Yes Patient Takes Glucophage: Yes Diminished Hearing: No Endocrine: No GERD: Yes Genitourinary: Yes (bladder cancer) Hepatitis: No Hiatal Hernia: No Hypertension: Yes Immune Disorder: No Kidney Stones: No Musculoskeletal: No Neurologic: No Psychiatric: No Reproductive: No Respiratory: Yes Myocardial Infarction: Yes Radiation Therapy: No Renal Failure: No Sleep Apnea: No (not diagnosed) Thyroid Disease: No Tetanus Vaccination: > 5 Years Influenza Vaccination: Yes Past Surgical History Abdominal Surgery: Yes (bladder ca, prostate, lymphnode removal, hernia repair , illeostomy, abd wal) AICD: No Appendectomy: Yes Arteriovenous Shunt: No Body Medical Devices: STOMA RUQ Cardiac Surgery: Yes (cardiac cath) Ear Surgery: No Endocrine Surgery: No Eye Surgery: Yes (cataracts) Genitourinary Surgery: Yes (bladder removed and prostate removed) Gynecologic Surgery: No Insulin Pump: No Joint Replacement: No Oral Surgery: Yes (teeth extraction) Pacemaker: No Thoracic Surgery: No Other Surgery: Yes Social History Alcohol Use: No (hx of etoh) Tobacco Use: No (quit in 2003 smoked cigs) Substance Use: No Allergies-Medications (Allergen,Severity, Reaction): Coded Allergies: ibuprofen (Unverified Allergy, Severe, swelling, 01/21/18) prednisone (Unverified Allergy, Severe, Chest Pain, 01/21/18) ELEVATED HT RATE pantoprazole (Unverified Allergy, Intermediate, Arrhythmias, 01/21/18) Reported Meds & Prescriptions Reported Meds & Active Scripts Active Hydrocodone-Acetamin 5-325 mg (Hydrocodone/Acetaminophen) 5 Mg-325 Mg Tablet 1 Tab PO Q4H PRN Furosemide 20 Mg Tab 20 Mg PO BID@ Eliquis (Apixaban) 5 Mg Tab 5 Mg PO BID Reported Prednisone 20 Mg Tab 20 Mg PO DIRECTED 40 MG twice a day x 3 days, then 20 MG daily x 3 days, then 10 MG daily x 3 days Cetirizine (Cetirizine HCl) 10 Mg Tab 10 Mg PO DAILY Metformin (Metformin HCl) 500 Mg Tab 500 Mg PO BIDPC Proair Hfa 8.5 GM Inh (Albuterol Sulfate) 90 Mcg/Act Aer 2 Puff INH Q4-6H PRN 108 mcg/actuation Lipitor (Atorvastatin Calcium) 40 Mg Tab 40 Mg PO HS Tiazac (Diltiazem ER 24 HR) 240 Mg Caper 240 Mg PO DAILY Spiriva Respimat Inh (Tiotropium Inh) 2.5 Mcg/Act Aero 2 Puff INH DAILY 2.5 mcg = 1 inhalation Oxygen tank (Oxygen) 1 Ea Tank 2 Liter BENITO.CANULA CONTINUOUS Oxygen Concentrator Portable Gaseous 2 L/min via Nasal Cannula Continuous For 99 months Advair Diskus Inh (Fluticasone-Salmeterol Inh) 250-50 Mcg/Blist Aer 1 Puff INH BID Rinse mouth after use. Review of Systems Except as stated in HPI: all other systems reviewed are Neg Physical Exam Narrative GENERAL: Well-developed, well-nourished, awake, alert, comfortable, no apparent distress. SKIN: Focused skin assessment warm/dry. HEAD: Atraumatic. Normocephalic. EYES: Pupils equal and round. No scleral icterus. No injection or drainage. ENT: No nasal bleeding or discharge. Mucous membranes pink and moist. NECK: Trachea midline. No JVD. CARDIOVASCULAR: Regular rate and rhythm. RESPIRATORY: No accessory muscle use. Clear to auscultation. Breath sounds equal bilaterally. GASTROINTESTINAL: Abdomen soft, non-tender, nondistended. Right lower quadrant ileal conduit with clear urine output. Midline surgical incision that is healing well without warmth or erythema. MUSCULOSKELETAL: No obvious deformities. No clubbing. No cyanosis. No edema. NEUROLOGICAL: Awake and alert. No obvious cranial nerve deficits. Motor grossly within normal limits. Normal speech. PSYCHIATRIC: Appropriate mood and affect; insight and judgment normal. Data Data Last Documented VS Vital Signs Date Time Temp Pulse Resp B/P (MAP) Pulse Ox O2 Delivery O2 Flow Rate FiO2 01/21/18 19:10 80 18 136/66 (89) 97 01/21/18 18:45 Nasal Cannula 2.00 01/21/18 17:33 98.2 Orders Orders Electrocardiogram (01/21/18 18:10) Complete Blood Count With Diff (01/21/18 18:10) Comprehensive Metabolic Panel (01/21/18 18:10) Beta Hydroxybutyrate (Acetone) (01/21/18 18:10) Chest, Single Ap (01/21/18 18:10) Ecg Monitoring (01/21/18 18:10) Iv Access Insert/Monitor (01/21/18 18:10) Oximetry (01/21/18 18:10) NPO (01/21/18 18:10) Sodium Chloride 0.9% Flush (Ns Flush) (01/21/18 18:15) Insulin Human Regular Inj (Novolin R Inj (01/21/18 19:30) Potassium Chloride (Kcl) (01/21/18 19:30) Bedside Glucose CHARANJIT.CSUGAR (01/21/18 19:47) Insulin Human Regular Inj (Novolin R Inj (01/21/18 20:30) Labs Laboratory Tests Test 01/21/18 18:35 White Blood Count 15.6 TH/MM3 Red Blood Count 3.48 MIL/MM3 Hemoglobin 10.6 GM/DL Hematocrit 31.3 % Mean Corpuscular Volume 90.0 FL Mean Corpuscular Hemoglobin 30.4 PG Mean Corpuscular Hemoglobin Concent 33.7 % Red Cell Distribution Width 14.5 % Platelet Count 575 TH/MM3 Mean Platelet Volume 6.2 FL Neutrophils (%) (Auto) 88.8 % Lymphocytes (%) (Auto) 7.9 % Monocytes (%) (Auto) 3.0 % Eosinophils (%) (Auto) 0.1 % Basophils (%) (Auto) 0.2 % Neutrophils # (Auto) 13.9 TH/MM3 Lymphocytes # (Auto) 1.2 TH/MM3 Monocytes # (Auto) 0.5 TH/MM3 Eosinophils # (Auto) 0.0 TH/MM3 Basophils # (Auto) 0.0 TH/MM3 CBC Comment DIFF FINAL Differential Comment Blood Urea Nitrogen 29 MG/DL Creatinine 1.20 MG/DL Random Glucose 454 MG/DL Total Protein 6.8 GM/DL Albumin 2.8 GM/DL Calcium Level 9.1 MG/DL Alkaline Phosphatase 89 U/L Aspartate Amino Transf (AST/SGOT) 6 U/L Alanine Aminotransferase (ALT/SGPT) 20 U/L Total Bilirubin 0.3 MG/DL Sodium Level 130 MEQ/L Potassium Level 3.5 MEQ/L Chloride Level 92 MEQ/L Carbon Dioxide Level 28.8 MEQ/L Anion Gap 9 MEQ/L Estimat Glomerular Filtration Rate 59 ML/MIN B-Hydroxybutyrate 0.10 MMOL/L [facility] Medical Decision Making Medical Screen Exam Complete: Yes Emergency Medical Condition: Yes Differential Diagnosis Hyperglycemia secondary to corticosteroid use, DKA, metabolic abnormality Narrative Course Vital signs reviewed. CBC: WBC 15.6, hemoglobin 10.6, hematocrit 31.3, platelets 575, neutrophils 88%. CMP is remarkable for sodium 130, chloride 92, BUN 29, creatinine 1.2, GFR 59, random glucose 454. Beta hydroxybutyrate is 0.10. Chest x-ray: Stable chest. He has been on a Medrol Dosepak and I think that this is more than likely the reason why he has hyperglycemia as well as slight leukocytosis and thrombocytosis. He is not in DKA. The patient was given a total of 14 units of IV insulin with improvement in blood glucose to 249. He is a lot happy with this number and will be discharged home. He will call his primary care physician tomorrow. I suggested that he take his Metformin 500 mg 3 times a day for the next 3 days instead of twice daily. He was advised on when to return to the emergency department. He verbalizes understanding and agreement with plan. Diagnosis Primary Impression: Hyperglycemia Referrals: Primary Care Physician 1 day Additional Instructions: Follow-up with your primary care physician tomorrow. Return to the emergency department for worsening symptoms or any other concerns. Disposition: 01 DISCHARGE HOME Condition: Stable Cruz Brar MD Jan 21, 2018 18:18
[2018-01-21 18:42] LABS: AUTOMATED NEUTROPHIL # 13.9 TH/MM3 (1.8-7.7); BASOPHIL % 0.2 % (0.0-2.0); EOSINOPHIL % 0.1 % (0.0-4.0); HEMATOCRIT 31.3 % (39.0-51.0); HEMOGLOBIN 10.6 GM/DL (13.0-17.0); LYMPH % 7.9 % (9.0-44.0); LYMPHOCYTE # 1.2 TH/MM3 (1.0-4.8); MEAN CORPUSCULAR HEMOGLOBIN 30.4 PG (27.0-34.0); MEAN CORPUSCULAR HGB CONC 33.7 % (32.0-36.0); MEAN PLATELET VOLUME 6.2 FL (7.0-11.0); MONOCYTE # 0.5 TH/MM3 (0-0.9); NEUT % 88.8 % (16.0-70.0); PLATELET COUNT 575 TH/MM3 (150-450); RED BLOOD COUNT 3.48 MIL/MM3 (4.50-5.90); RED CELL DISTRIBUTION WIDTH 14.5 % (11.6-17.2); WHITE BLOOD COUNT 15.6 TH/MM3 (4.0-11.0)
[2018-01-21 18:45] VITALS: O2SAT 96
[2018-01-21 18:58] LABS: CHLORIDE 92 MEQ/L (98-107); SODIUM (NA) 130 MEQ/L (136-145)
[2018-01-21 19:00] LABS: CALCIUM 9.1 MG/DL (8.5-10.1)
[2018-01-21 19:01] LABS: ALBUMIN 2.8 GM/DL (3.4-5.0); BICARBONATE 28.8 MEQ/L (21.0-32.0)
[2018-01-21 19:10] VITALS: BP 136/66; PULSE 80; RESP 18; O2SAT 97
[2018-01-21 19:16] LABS: ALKALINE PHOSPHATASE 89 U/L (45-117); ALT (GPT) 20 U/L (12-78); AST (GOT) 6 U/L (15-37); BLOOD UREA NITROGEN 29 MG/DL (7-18); GLOMERULAR FILTRATION RATE 59 ML/MIN (>89); TOTAL BILIRUBIN ADULT 0.3 MG/DL (0.2-1.0); TOTAL PROTEIN 6.8 GM/DL (6.4-8.2)
[2018-01-21 19:18] LABS: GLUCOSE,RANDOM 454 MG/DL (74-106)
--- NOTE | 2018-01-21 19:28 | RADRPT ---
EXAM DATE/TIME: 01/21/2018 19:03 [facility] COMPARISON: CHEST SINGLE AP, February 15, 2017, 17:58. INDICATIONS : Productive cough and congestion. MEDICAL HISTORY : Carcinoma, bladder. Hernia, umbilical. Diabetes mellitus type 2. SURGICAL HISTORY : Umbilical hernia repair. Appendectomy.Prostatectomy ENCOUNTER: Initial ACUITY: 3 weeks PAIN SCORE: 0/10 LOCATION: Bilateral chest FINDINGS: Right chest port is stable in good position. Minimal streaky basilar parenchymal opacity appears santiago sly stable likely scarring. No evidence of consolidative infiltrate or significant effusion. Cardiac contours are stable and satisfactory. CONCLUSION: Stable chest appearance. Harris Valadez MD on January 21, 2018 at 19:26 Board Certified Radiologist. This report was verified electronically.
[2018-01-21] MEDS ORDERED: INSULIN HUMAN REGULAR 1,000 UNITS/10 ML VIAL IV PUSH ONE ×2 (19:30→20:30)
[2018-01-21] MEDS ORDERED: POTASSIUM CHLORIDE 20 MEQ CONTROLLED RELEASE TAB PO ONE (19:30)
[2018-01-21 21:30] VITALS: BP 132/65; PULSE 74; RESP 18; O2SAT 97
--- NOTE | 2018-01-23 09:12 | EKG ---
Date Performed: 01/21/2018 Time Performed: 18:46:31 PTAGE: 72 years EKG: Sinus rhythm WITH SINUS ARRHYTHMIA NORMAL ECG PREVIOUS TRACING : 01/05/2018 12.25 DOCTOR: Amber Bella Interpretating Date/Time 01/23/2018 09:09:42
== END 2018-01-21 21:43 | disposition home or self-care (01) ==
LOC: PHED 17:27
DX: E11.65 Type 2 diabetes mellitus with hyperglycemia (principal); J44.9 Chronic obstructive pulmonary disease, unspecified; I11.0 Hypertensive heart disease with heart failure; I50.9 Heart failure, unspecified; E78.5 Hyperlipidemia, unspecified; I48.91 Unspecified atrial fibrillation; I25.10 Atherosclerotic heart disease of native coronary artery without angina pectoris; I25.2 Old myocardial infarction; Z87.891 Personal history of nicotine dependence
CPT/HCPCS: 71045; 80053; 82010; 85025; 93005; 96374; 96375; 99285; J1642; J1815